=== PATIENT | female | born 1965 | race Caucasian/White ===

== ENCOUNTER 2016-10-29 20:02 | Emergency (ER) | payer BC ==
[2016-10-29] MEDS ORDERED: SODIUM CHLORIDE 0.9% 1,000 ML IV STA (20:43)
[2016-10-29] MEDS: ONDANSETRON 4 MG/2 ML VIAL IVP STA ×2 (21:05→21:22)
[2016-10-29] MEDS: HYDROmorphone 1 MG/ML 1 ML SYRINGE IVP STA ×2 (21:05→21:22)
--- NOTE | 2016-10-29 21:10 | ED ---
Abdominal Pain HPI - General Chief Complaint: Abdominal Pain Stated Complaint: abdominal pain Time Seen by Provider: 10/29/16 20:32 Source: patient, RN notes reviewed, old records reviewed Mode of arrival: ambulatory Limitations: no limitations - History of Present Illness Initial Comments: This is a pleasant 51-year-old female presenting to emergency Department with chief complaint of increased abdominal pain over the past 3 days. Patient reports it's over her umbilicus. Patient has a past medical history of ovarian cancer, she's had a total hysterectomy in 2004. Patient reports that afterwards she did have abdominal hernia which was repaired by Dr. De Santiago in 2013. Patient states that subsequently her ovarian cancer did return and she had a has a another surgery to reopen her hernia repair, and the cancer was located on her large bowel. They did remove a small portion of her large bowel at that time. Patient has currently cancer free. Patient states that over the past 3 days she has had a decreased appetite and feels very full after a few bites of food. She reports that she has not passed any gas over the past day. She did have a small bowel movement 2 days ago. Patient reports no vomiting but feels nauseated. She states that the pain is worse whenever she sits up and leans forward and is in the fold of her abdomen. Patient states that she is concerned that she may have a worsening hernia or possibly ileus. Patient states that she is supposed to follow-up with her oncologist on and would like her CA-125 checked. - Related Data Home Medications Medication Instructions Recorded Confirmed Essential Oil Allergy Capsule 1 cap PO DAILY 10/29/16 10/29/16 Multivitamins, Thera [Multivitamin 1 tab PO DAILY 10/29/16 10/29/16 (formulary)] Allergies Allergy/AdvReac Type Severity Reaction Status Date / Time No Known Allergies Allergy Verified 10/29/16 21:26 Review of Systems ROS Statement: Those systems with pertinent positive or pertinent negative responses have been documented in the HPI. ROS Other: All systems not noted in ROS Statement are negative. Past Medical History Additional Past Medical History / Comment(s): hx ovarian cancer History of Any Multi-Drug Resistant Organisms: None Reported Past Surgical History: Hernia Repair Past Psychological History: No Psychological Hx Reported Smoking Status: Never smoker Past Alcohol Use History: None Reported Past Drug Use History: None Reported General Exam - General Exam Comments Initial Comments: Is a pleasant 51-year-old female. No acute distress. Limitations: no limitations General appearance: alert, in no apparent distress Head exam: Present: atraumatic, normocephalic, normal inspection Eye exam: Present: normal appearance, PERRL, EOMI. Absent: scleral icterus, conjunctival injection, periorbital swelling ENT exam: Present: normal exam, mucous membranes moist Neck exam: Present: normal inspection. Absent: tenderness, meningismus, lymphadenopathy Respiratory exam: Present: normal lung sounds bilaterally. Absent: respiratory distress, wheezes, rales, rhonchi, stridor Cardiovascular Exam: Present: regular rate, normal rhythm, normal heart sounds. Absent: systolic murmur, diastolic murmur, rubs, gallop, clicks GI/Abdominal exam: Present: soft, tenderness (Earring umbilical tenderness. Difficult to palpate a hernia at this time.), normal bowel sounds, other (Full scars over the abdomen from previous surgeries.). Absent: distended, guarding, rebound, rigid Extremities exam: Present: normal inspection, full ROM, normal capillary refill. Absent: tenderness, pedal edema, joint swelling, calf tenderness Back exam: Present: normal inspection Neurological exam: Present: alert, oriented X3, CN II-XII intact Psychiatric exam: Present: normal affect, normal mood Skin exam: Present: warm, dry, intact, normal color. Absent: rash Course Vital Signs 10/29/16 10/29/16 10/29/16 20:26 22:29 23:15 Temperature 99.3 F 99.1 F 99 F Pulse Rate 103 H 80 80 Respiratory 18 16 20 Rate Blood Pressure 112/67 123/57 130/68 O2 Sat by Pulse 97 99 Oximetry Medical Decision Making - Medical Decision Making This is a pleasant 51-year-old female presenting to emergency Department with chief complaint of increased abdominal pain over the past 3 days. Patient reports it's over her umbilicus. Patient has a past medical history of ovarian cancer, she's had a total hysterectomy in 2004. Patient reports that afterwards she did have abdominal hernia which was repaired by Dr. De Santiago in 2013. Patient states that subsequently her ovarian cancer did return and she had a has a another surgery to reopen her hernia repair, and the cancer was located on her large bowel. They did remove a small portion of her large bowel at that time. Patient has currently cancer free. Patient states that over the past 3 days she has had a decreased appetite and feels very full after a few bites of food. She reports that she has not passed any gas over the past day. She did have a small bowel movement 2 days ago. Patient reports no vomiting but feels nauseated. She states that the pain is worse whenever she sits up and leans forward and is in the fold of her abdomen. Patient states that she is concerned that she may have a worsening hernia or possibly ileus. Patient labwork reviewed, no acute abnormalities. KUB shows mild air fluid levels. CT with contrast shows no acute abnormalities, no signs of obstrution or illeus. PAtient CT does show thickened bowel loops consistent with enteritis. Dsicussed clear liquid diet for 48 hours. Discussed follow up with PCP, return parameters discussed. - Lab Data Result diagrams: 10/29/16 21:00 10/29/16 21:00 Lab Results 10/29/16 10/29/16 10/29/16 Range/Units 21:00 21:00 21:00 WBC 7.0 (3.8-10.6) k/uL RBC 5.07 (3.80-5.40) m/uL Hgb 15.0 (11.4-16.0) gm/dL Hct 45.7 (34.0-46.0) % MCV 90.2 (80.0-100.0) fL MCH 29.5 (25.0-35.0) pg MCHC 32.7 (31.0-37.0) g/dL RDW 14.1 (11.5-15.5) % Plt Count 250 (150-450) k/uL Neutrophils % 71 % Lymphocytes % 20 % Monocytes % 6 % Eosinophils % 1 % Basophils % 0 % Neutrophils # 5.0 (1.3-7.7) k/uL Lymphocytes # 1.4 (1.0-4.8) k/uL Monocytes # 0.4 (0-1.0) k/uL Eosinophils # 0.1 (0-0.7) k/uL Basophils # 0.0 (0-0.2) k/uL Sodium 138 (137-145) mmol/L Potassium 4.5 (3.5-5.1) mmol/L Chloride 101 (98-107) mmol/L Carbon Dioxide 27 (22-30) mmol/L Anion Gap 10 mmol/L BUN 9 (7-17) mg/dL Creatinine 0.90 (0.52-1.04) mg/dL Est GFR (MDRD) Af Amer >60 (>60 ml/min/1.73 sqM) Est GFR (MDRD) Non-Af >60 (>60 ml/min/1.73 sqM) Glucose 116 H (74-99) mg/dL Calcium 9.2 (8.4-10.2) mg/dL Total Bilirubin 0.5 (0.2-1.3) mg/dL AST 33 (14-36) U/L ALT 46 (9-52) U/L Alkaline Phosphatase 118 (38-126) U/L Total Protein 6.9 (6.3-8.2) g/dL Albumin 4.0 (3.5-5.0) g/dL Amylase <30 L (30-110) U/L Lipase 43 (23-300) U/L CA 125 Antigen 16.4 (<35.1) U/mL Urine Color Yellow Urine Appearance Cloudy H (Clear) Urine pH 6.0 (5.0-8.0) Ur Specific [place] 1.021 (1.001-1.035) Urine Protein 1+ H (Negative) Urine Glucose (UA) Negative (Negative) Urine Ketones Negative (Negative) Urine Blood Small H (Negative) Urine Nitrite Negative (Negative) Urine Bilirubin Negative (Negative) Urine Urobilinogen <2.0 (<2.0) mg/dL Ur Leukocyte Esterase Small H (Negative) Urine RBC 10 H (0-5) /hpf Urine WBC 6 H (0-5) /hpf Ur Squamous Epith Cells 5 H (0-4) /hpf Urine Bacteria Rare H (None) /hpf Urine Mucus Rare H (None) /hpf - Radiology Data Radiology results: report reviewed CT shows small bowel wall thickening consistent with enteritis. Disposition Clinical Impression: Enteritis Disposition: HOME SELF-CARE Condition: Good Instructions: Enteritis (ED) Additional Instructions: Patient advised clear liquid diet for the next 2 days. Then slowly advance her diet to soft foods. Follow-up with her primary care provider. Return to the emergency department if any alarming signs or symptoms occur. Referrals: Flower gAuilar MD [Primary Care Provider] - 1-2 days Time of Disposition: 22:58
[2016-10-29 21:34] LABS: Basophils % (A) 0 %; CH 30.8; CHCM 34.2; Eosinophils # (A) 0.1 k/uL (0-0.7); Eosinophils % (A) 1 %; HCT 45.7 % (34.0-46.0); HDW 2.81; Luc # (Auto) 0.16; Luc % (Auto) 2; Lymphocytes # (A) 1.4 k/uL (1.0-4.8); Lymphocytes % (A) 20 %; MCH 29.5 pg (25.0-35.0); MCHC 32.7 g/dL (31.0-37.0); MCV 90.2 fL (80.0-100.0); Mean Platelet Volume 6.5; Monocytes # (A) 0.4 k/uL (0-1.0); Monocytes % (A) 6 %; Neutrophils % (A) 71 %; RBC 5.07 m/uL (3.80-5.40); RDW 14.1 % (11.5-15.5); WBC (Perox) 6.93
[2016-10-29 21:36] LABS: Appearance,Urine Cloudy (Clear); Bacteria,Urine Rare /hpf; Bilirubin,Urine Negative (Negative); Glucose,Urine (UA) Negative (Negative); Ketones,Urine Negative (Negative); Leukocyte Esterase,Urine Small (Negative); Mucus,Urine Rare /hpf; Nitrite,Urine Negative (Negative); Particle Count 8959; Protein,Urine 1+ (Negative); RBC,Urine 10 /hpf (0-5); Specific Gravity,Urine 1.021 (1.001-1.035); Squamous Epithelial Cell,Urine 5 /hpf (0-4); UA Billing (MACRO vs. MICRO) MICRO; Urobilinogen,Urine <2.0 mg/dL (<2.0); WBC,Urine 6 /hpf (0-5)
[2016-10-29] MEDS ORDERED: RX INFO: IV CONTRAST WAS GIVEN 1 EACH MISC MISCELLANE PRN (21:39)
--- NOTE | 2016-10-29 21:42 | XR ---
EXAMINATION TYPE: XR KUB DATE OF EXAM: 10/29/2016 COMPARISON: NONE INDICATION: Abdominal pain umbilical pain TECHNIQUE: Single view abdomen upright view FINDINGS: There is a nonspecific bowel gas pattern. Couple of air-fluid levels may be within the transverse col on. Differential air-fluid levels are not evident. No mass effect is evident. Postsurgical changes ar e evident. Psoas margins are normal. No organomegaly is present. No free air is present. IMPRESSION: 1. Nonspecific abdomen. Consider gastroenteritis.
[2016-10-29 21:45] LABS: ALT 46 U/L (9-52); AST 33 U/L (14-36); Alkaline Phosphatase 118 U/L (38-126); Amylase <30 U/L (30-110); Anion Gap 10 mmol/L; Blood Urea Nitrogen 9 mg/dL (7-17); Calcium 9.2 mg/dL (8.4-10.2); Carbon Dioxide 27 mmol/L (22-30); Chloride 101 mmol/L (98-107); Glucose 116 mg/dL (74-99); Non-African American GFR(MDRD) >60 (>60 ml/min/1.73 sqM); Potassium 4.5 mmol/L (3.5-5.1); Sodium 138 mmol/L (137-145); Total Bilirubin 0.5 mg/dL (0.2-1.3); Total Protein 6.9 g/dL (6.3-8.2)
[2016-10-29 22:14] LABS: Cancer Anitgen 125 16.4 U/mL (<35.1)
--- NOTE | 2016-10-29 22:28 | CT ---
EXAM: CT Abdomen and Pelvis With Intravenous Contrast CLINICAL HISTORY: Reason: Pain TECHNIQUE: Axial computed tomography images of the abdomen and pelvis with intravenous contrast. CTDI is 45.2 mGy and DLP is 1797 mGy-cm. This CT exam was performed using one or more of the following dose reduction techniques: automated exposure control, adjustment of the mA and/or kV according to patient size, and/or use of iterative reconstruction technique. COMPARISON: No relevant prior studies available. FINDINGS: Lower thorax: No acute findings. ABDOMEN: Liver: Hepatic steatosis. 8mm left hepatic lobe cyst. Gallbladder and bile ducts: Gallbladder is absent. Pancreas: Unremarkable. No mass. No ductal dilation. Spleen: Unremarkable. No splenomegaly. Adrenals: Unremarkable. No mass. Kidneys and ureters: Unremarkable. No solid mass. No hydronephrosis. Long segment distal small bowel wall thickening suggesting enteritis. No pneumatosis or portal venous gas. Colonic diverticula without diverticulitis. Intact distal colonic anastomosis. Thickening. Appendix: No findings to suggest acute appendicitis. PELVIS: Bladder: Unremarkable. No mass. Reproductive: Hysterectomy. Retroperitoneal lymph node dissection. ABDOMEN and PELVIS: Intraperitoneal space: Ventral hernia repair mesh. Small hiatal hernia. Bones/joints: No acute fracture. No dislocation. Vasculature: Unremarkable. No abdominal aortic aneurysm. IMPRESSION: Small bowel wall thickening suggesting enteritis. No perforation. Hepatic steatosis.
[2016-10-29 22:33] VITALS: PULSE 80
[2016-10-29 23:17] VITALS: BP 130/68; RESP 20; TEMP 99
== END 2016-10-29 23:17 | disposition home or self-care (01) ==
LOC: EC 20:02
DX: K52.9 Noninfective gastroenteritis and colitis, unspecified (principal); Z85.43 Personal history of malignant neoplasm of ovary
CPT/HCPCS: 36415; 80053; 86304; 82150; 83690; 85025; 81001; 87086; 74000; 74177; 99284; 96360; Q9967; 96374

== ENCOUNTER 2020-05-21 10:43 | Inpatient (IN) | payer BC ==
[2020-05-21] MEDS ORDERED: ONDANSETRON 4 MG/2 ML VIAL IVP STA (11:19)
[2020-05-21] MEDS ORDERED: MORPHINE SULFATE 2 MG/ML SYRINGE IVP STA (11:19)
[2020-05-21] MEDS ORDERED: SODIUM CHLORIDE 0.9% 500 ML 500 ML IV STA ×2 (11:19→12:26)
--- NOTE | 2020-05-21 11:24 | ED ---
General Adult HPI - General Stated complaint: Adb Pain Time Seen by Provider: 05/21/20 11:10 Source: RN notes reviewed - History of Present Illness Initial comments: 54-year-old female with a past medical history of ovarian cancer presents to the emergency room for abdominal pain. This has been ongoing since May 11 or about a week and a half. States this started when she was getting up from a chair felt a burning and sharp pain in her left lower quadrant. States she has had a hernia repair in this area in the past and is concerned she may have another hernia. Patient states that the pain has gradually worsened. She did see her conference planner/onc surgeon one week ago who did a physical exam and did not feel any palpable nodules. Patient states that this pain is worsened. She had chemotherapy on Tuesday. Today she cannot tolerate the pain. She reports that she does not tolerate pain medication while as Dilaudid caused her severe drowsiness. She has never had morphine that she knows of. She denies nausea vomiting diarrhea. Denies fevers.Patient has no other complaints at this time including shortness of breath, chest pain, nausea or vomiting, headache, or visual changes. - Related Data Home Medications Medication Instructions Recorded Confirmed Cetirizine HCl/Pseudoephedrine 1 tab PO Q12H PRN 05/21/20 05/21/20 [Zyrtec-D Tablet] Loratadine [Claritin] 10 mg PO HS 05/21/20 05/21/20 Ondansetron [Zofran] 4 mg PO Q6H PRN 05/21/20 05/21/20 Allergies Allergy/AdvReac Type Severity Reaction Status Date / Time No Known Allergies Allergy Verified 05/21/20 11:33 Review of Systems ROS Statement: Those systems with pertinent positive or pertinent negative responses have been documented in the HPI. ROS Other: All systems not noted in ROS Statement are negative. Past Medical History Additional Past Medical History / Comment(s): hx ovarian cancer History of Any Multi-Drug Resistant Organisms: None Reported Past Surgical History: Hernia Repair Past Psychological History: No Psychological Hx Reported Past Alcohol Use History: None Reported Past Drug Use History: None Reported General Exam General appearance: alert, in no apparent distress Head exam: Present: atraumatic, normocephalic, normal inspection Eye exam: Present: normal appearance, PERRL, EOMI. Absent: scleral icterus, con junctival injection, periorbital swelling ENT exam: Present: normal exam, mucous membranes moist Neck exam: Present: normal inspection, full ROM. Absent: tenderness, meningismus, lymphadenopathy Respiratory exam: Present: normal lung sounds bilaterally. Absent: respiratory distress Cardiovascular Exam: Present: regular rate, normal rhythm GI/Abdominal exam: Present: soft, tenderness (Tenderness noted to the left lower quadrant, no palpable hernias). Absent: distended Neurological exam: Present: alert Course Vital Signs 05/21/20 05/21/20 11:22 13:32 Temperature 98.5 F Pulse Rate 93 84 Respiratory 18 18 Rate Blood Pressure 129/62 105/49 O2 Sat by Pulse 99 99 Oximetry Procedures - Sepsis Sepsis Focused Exam #1 Sepsis Focused Exam Date: 05/21/20 Sepsis Focused Exam Time: 14:00 Sepsis Focused Exam Complete: Yes Vital Signs & RN Notes Reviewed: Yes Capillary Refill: > 2 Seconds: Fingers, Toes Peripheral Pulses: Normal: Radial (R) Skin Color: Normal for Patient Respiratory Exam: normal lung sounds Cardiovascular Exam: regular rate, normal rhythm Medical Decision Making - Medical Decision Making Vitals are stable. Patient however does have significant abdominal pain. Leukocytosis of 17 is noted however patient did have Neulasta yesterday. However lactic acidosis of 5.1 is noted. Patient does have urinalysis with 106 white blood cells. Technically patient does not meet sepsis criteria based on her vitals however will be treated as such with IV antibiotics and fluids. CT abdomen and pelvis shows no suspicious changes to account for pain. Patient's pain clearly related to cystitis. She will be admitted for IV antibiotics and fluid therapy. Dr. Palomo except this patient. I will consult her oncologist. Patient has seen Dr. De Santiago in the past and if abdominal pain is persistent after infection improves medical doctor can consult as needed. - Lab Data Result diagrams: 05/21/20 11:32 05/21/20 11:32 Lab Results 05/21/20 05/21/20 05/21/20 Range/Units 11:32 11:32 11:32 WBC 16.9 H (3.8-10.6) k/uL RBC 2.84 L (3.80-5.40) m/uL Hgb 9.5 L (11.4-16.0) gm/dL Hct 28.6 L (34.0-46.0) % MCV 100.6 H (80.0-100.0) fL MCH 33.5 (25.0-35.0) pg MCHC 33.3 (31.0-37.0) g/dL RDW 18.5 H (11.5-15.5) % Plt Count 172 (150-450) k/uL MPV 7.5 Neutrophils % 94 % Lymphocytes % 3 % Monocytes % 1 % Eosinophils % 1 % Basophils % 0 % Neutrophils # 15.8 H (1.3-7.7) k/uL Lymphocytes # 0.5 L (1.0-4.8) k/uL Monocytes # 0.2 (0-1.0) k/uL Eosinophils # 0.2 (0-0.7) k/uL Basophils # 0.0 (0-0.2) k/uL Hypochromasia Slight Poikilocytosis Slight Anisocytosis Slight Macrocytosis Moderate Sodium 138 (137-145) mmol/L Potassium 4.4 (3.5-5.1) mmol/L Chloride 105 (98-107) mmol/L Carbon Dioxide 25 (22-30) mmol/L Anion Gap 8 mmol/L BUN 14 (7-17) mg/dL Creatinine 0.75 (0.52-1.04) mg/dL Est GFR (CKD-EPI)AfAm >90 (>60 ml/min/1.73 sqM) Est GFR (CKD-EPI)NonAf >90 (>60 ml/min/1.73 sqM) Glucose 108 H (74-99) mg/dL Plasma Lactic Acid [place] (0.7-2.0) mmol/L Calcium 9.3 (8.4-10.2) mg/dL Total Bilirubin 1.2 (0.2-1.3) mg/dL AST 208 H (14-36) U/L ALT 159 H (4-34) U/L Alkaline Phosphatase 112 (38-126) U/L Total Protein 7.3 (6.3-8.2) g/dL Albumin 4.1 (3.5-5.0) g/dL Amylase 58 (30-110) U/L Lipase 62 (23-300) U/L Urine Color Yellow Urine Appearance Clear (Clear) Urine pH 5.5 (5.0-8.0) Ur Specific [place] 1.020 (1.001-1.035) Urine Protein Negative (Negative) Urine Glucose (UA) Negative (Negative) Urine Ketones Negative (Negative) Urine Blood Negative (Negative) Urine Nitrite Negative (Negative) Urine Bilirubin Negative (Negative) Urine Urobilinogen <2.0 (<2.0) mg/dL Ur Leukocyte Esterase Large H (Negative) Urine RBC 2 (0-5) /hpf Urine WBC 106 H (0-5) /hpf Ur Squamous Epith Cells 2 (0-4) /hpf Urine Bacteria Rare H (None) /hpf Urine Mucus Rare H (None) /hpf 05/21/20 Range/Units 11:32 WBC (3.8-10.6) k/uL RBC (3.80-5.40) m/uL Hgb (11.4-16.0) gm/dL Hct (34.0-46.0) % MCV (80.0-100.0) fL MCH (25.0-35.0) pg MCHC (31.0-37.0) g/dL RDW (11.5-15.5) % Plt Count (150-450) k/uL MPV Neutrophils % % Lymphocytes % % Monocytes % % Eosinophils % % Basophils % % Neutrophils # (1.3-7.7) k/uL Lymphocytes # (1.0-4.8) k/uL Monocytes # (0-1.0) k/uL Eosinophils # (0-0.7) k/uL Basophils # (0-0.2) k/uL Hypochromasia Poikilocytosis Anisocytosis Macrocytosis Sodium (137-145) mmol/L Potassium (3.5-5.1) mmol/L Chloride (98-107) mmol/L Carbon Dioxide (22-30) mmol/L Anion Gap mmol/L BUN (7-17) mg/dL Creatinine (0.52-1.04) mg/dL Est GFR (CKD-EPI)AfAm (>60 ml/min/1.73 sqM) Est GFR (CKD-EPI)NonAf (>60 ml/min/1.73 sqM) Glucose (74-99) mg/dL Plasma Lactic Acid [place] 5.1 H* (0.7-2.0) mmol/L Calcium (8.4-10.2) mg/dL Total Bilirubin (0.2-1.3) mg/dL AST (14-36) U/L ALT (4-34) U/L Alkaline Phosphatase (38-126) U/L Total Protein (6.3-8.2) g/dL Albumin (3.5-5.0) g/dL Amylase (30-110) U/L Lipase (23-300) U/L Urine Color Urine Appearance (Clear) Urine pH (5.0-8.0) Ur Specific [place] (1.001-1.035) Urine Protein (Negative) Urine Glucose (UA) (Negative) Urine Ketones (Negative) Urine Blood (Negative) Urine Nitrite (Negative) Urine Bilirubin (Negative) Urine Urobilinogen (<2.0) mg/dL Ur Leukocyte Esterase (Negative) Urine RBC (0-5) /hpf Urine WBC (0-5) /hpf Ur Squamous Epith Cells (0-4) /hpf Urine Bacteria (None) /hpf Urine Mucus (None) /hpf Disposition Clinical Impression: Abdominal pain, Lactic acidosis, Urinary tract infection Disposition: ADMITTED IP TO THIS HOSP Is patient prescribed a controlled substance at d/c from ED?: No Referrals: Flower Aguilar MD [Primary Care Provider] - 1-2 days Time of Disposition: 14:20
[2020-05-21 12:09] LABS: Anisocytosis Slight; Basophils % (A) 0 %; Eosinophils # (A) 0.2 k/uL (0-0.7); Eosinophils % (A) 1 %; HCT 28.6 % (34.0-46.0); HGB 9.5 gm/dL (11.4-16.0); Hypochromasia Slight; Lymphocytes # (A) 0.5 k/uL (1.0-4.8); Lymphocytes % (A) 3 %; MCH 33.5 pg (25.0-35.0); MCHC 33.3 g/dL (31.0-37.0); MCV 100.6 fL (80.0-100.0); Macrocytosis Moderate; Mean Platelet Volume 7.5; Monocytes # (A) 0.2 k/uL (0-1.0); Monocytes % (A) 1 %; Neutrophils # (A) 15.8 k/uL (1.3-7.7); Neutrophils % (A) 94 %; Platelet Count 172 k/uL (150-450); Poikilocytosis Slight; RBC 2.84 m/uL (3.80-5.40); RDW 18.5 % (11.5-15.5); WBC 16.9 k/uL (3.8-10.6)
[2020-05-21 12:16] LABS: ALT 159 U/L (4-34); AST 208 U/L (14-36); African American GFR (CKD) >90 (>60 ml/min/1.73 sqM); Albumin 4.1 g/dL (3.5-5.0); Alkaline Phosphatase 112 U/L (38-126); Amylase 58 U/L (30-110); Anion Gap 8 mmol/L; Blood Urea Nitrogen 14 mg/dL (7-17); Calcium 9.3 mg/dL (8.4-10.2); Carbon Dioxide 25 mmol/L (22-30); Chloride 105 mmol/L (98-107); Glucose 108 mg/dL (74-99); Lipase 62 U/L (23-300); Non-African American GFR(CKD) >90 (>60 ml/min/1.73 sqM); Potassium 4.4 mmol/L (3.5-5.1); Sodium 138 mmol/L (137-145); Total Bilirubin 1.2 mg/dL (0.2-1.3); Total Protein 7.3 g/dL (6.3-8.2)
[2020-05-21 12:21] LABS: Appearance,Urine Clear (Clear); Bacteria,Urine Rare /hpf; Bilirubin,Urine Negative (Negative); Blood,Urine Negative (Negative); Color,Urine Yellow; Glucose,Urine (UA) Negative (Negative); Ketones,Urine Negative (Negative); Leukocyte Esterase,Urine Large (Negative); Mucus,Urine Rare /hpf; Nitrite,Urine Negative (Negative); PH, Urine 5.5 (5.0-8.0); Protein,Urine Negative (Negative); RBC,Urine 2 /hpf (0-5); Squamous Epithelial Cell,Urine 2 /hpf (0-4); Urobilinogen,Urine <2.0 mg/dL (<2.0); WBC,Urine 106 /hpf (0-5)
[2020-05-21] MEDS ORDERED: SODIUM CHLORIDE 0.9% 1,000 ML IV STA (12:26)
[2020-05-21] MEDS ORDERED: cefTRIAXone IN SWFI 1,000 MG/10 ML SYRINGE IVP STA (12:44)
--- NOTE | 2020-05-21 13:02 | CT ---
EXAMINATION TYPE: CT abdomen pelvis w con DATE OF EXAM: 05/21/2020 COMPARISON: 10/29/2016 INDICATION: Left lower quadrant pain DLP: 1809.4 mGycm, Automated exposure control for dose reduction was used. CONTRAST: 100 mL of Isovue 300. Study performed without Oral Contrast TECHNIQUE: Axial images were obtained from above the diaphragm to the pubic rami in the axial plane a t 5 mm thick sections. Reconstructed images are reviewed on the computer in the coronal plane. FINDINGS: Limited CT sections are obtained the lung bases. The lung bases are clear. CT ABDOMEN: Liver: Normal Spleen: Normal Pancreas: Normal Adrenal glands: The adrenal glands are normal. Gallbladder: Not identified Kidneys: No masses are evident. No hydronephrosis is present. No cysts are present. Aorta: Vascular calcification is within the aorta. Inferior vena cava: Normal. CT PELVIS: There is an anastomosis of the distal sigmoid colon. No stenosis is identified. The studies without o ral contrast limiting bowel evaluation. Loops of bowel as visualized without contrast appear normal. No recurrent herniation is identified. No recurrent colitis is evident. Appendix: Normal as visualized. Urinary bladder: Normal. Genitourinary structures: Uterus and ovaries are not identified. Osseous structures: No suspicious lytic or sclerotic lesions. IMPRESSIONS: 1. No suspicious changes to account for left lower quadrant pain.
[2020-05-21] MEDS ORDERED: NALOXONE 0.4 MG/ML 1 ML VIAL IV PRN (14:37)
[2020-05-21] MEDS ORDERED: ONDANSETRON 4 MG/2 ML VIAL IVP PRN (14:37)
[2020-05-21] MEDS ORDERED: CETIRIZINE HCL PO PRN (14:38)
[2020-05-21] MEDS ORDERED: PSEUDOEPHEDRINE PO PRN (14:38)
[2020-05-21] MEDS ORDERED: PSEUDOEPHEDRINE 12HR 120 MG TABLET.ER PO PRN (14:58)
[2020-05-21] MEDS: SODIUM CHLORIDE 0.9% 1,000 ML IV SCH ×2 (15:11→23:49)
--- NOTE | 2020-05-21 17:54 | P.HPIM ---
History of Present Illness H&P Date: 05/21/20 Saloni Dent is a 54-year-old female patient of Dr. Aguilar who presented to [facility] emergency room with a chief complaint of left flank pain and generalized weakness patient stated that her pain started about 10 days ago and has been worsening, she also has a known history of ovarian cancer with metastatic disease she has been maintained on chemotherapy she received chemotherapy on Tuesday, patient felt very weak and she decided to come to emergency room. She was evaluated in the emergency room vital examination on presentation revealed a temperature of 98.5 pulse 93 respiration 18 blood pressure 129/62 pulse ox 99% on room air her white blood count was 16.9 hemoglobin 9.5 platelet count 172 lactic acid was elevated at 5.1 patient had evidence of urinary tract infection liver enzymes AST and ALT were elevated at 208 and 159 patient was given fluid boluses in the emergency room per sepsis protocol she was started on IV Rocephin and was admitted to medical floor onc ology consultation was requested. On review of systems patient is feeling better she is alert and oriented 3 she is still complaining of left flank pain and generalized weakness otherwise she denies any complaints there is no fever or chills no headache or dizziness no chest pain no shortness of breath no cough no nausea or vomiting no abdominal pain no diarrhea and no urinary symptoms Past Medical History Additional Past Medical History / Comment(s): hx ovarian cancer History of Any Multi-Drug Resistant Organisms: None Reported Past Surgical History: Hernia Repair Past Anesthesia/Blood Transfusion Reactions: No Reported Reaction Past Psychological History: No Psychological Hx Reported Past Alcohol Use History: None Reported Past Drug Use History: None Reported Medications and Allergies Home Medications Medication Instructions Recorded Confirmed Type Cetirizine HCl/Pseudoephedrine 1 tab PO Q12H PRN 05/21/20 05/21/20 History [Zyrtec-D Tablet] Loratadine [Claritin] 10 mg PO HS 05/21/20 05/21/20 History Ondansetron [Zofran] 4 mg PO Q6H PRN 05/21/20 05/21/20 History Allergies Allergy/AdvReac Type Severity Reaction Status Date / Time No Known Allergies Allergy Verified 05/21/20 11:33 Physical Exam Vitals: Vital Signs Temp Pulse Pulse Resp BP BP Pulse Ox 05/21/20 16:04 18 05/21/20 15:30 98.0 F 80 16 102/61 99 05/21/20 15:14 98.6 F 72 18 123/62 98 05/21/20 13:32 84 18 105/49 99 05/21/20 11:22 98.5 F 93 18 129/62 99 Intake and Output 05/21/20 05/21/20 05/21/20 06:59 14:59 22:59 Intake Total 1999 Balance 1999 Intake: Amount of Fluid Infused ( 2000 ml) Other: Voiding Method Toilet Weight 106.594 kg 106.594 kg On physical exam patient is alert and oriented 3 in no apparent distress HEENT head normocephalic and atraumatic Neck is supple no JVD no goiter no lymphadenopathy no carotid bruit Chest exam reveals a few scattered crackles bilaterally no wheezing Cardiac exam reveals regular heart sounds S1 and S2 no gallops no murmurs abdomen is soft nontender no organomegaly with normal bowel sounds, there is mild tenderness in the left pelvic area Extremity exam reveals no edema no cyanosis or clubbing Neurological examination reveals no gross focal deficits Results CBC & Chem 7: 05/21/20 11:32 05/21/20 11:32 Labs: Abnormal Lab Results - Last 24 Hours (Table) 05/21/20 05/21/20 05/21/20 Range/Units 11:32 11:32 11:32 WBC 16.9 H (3.8-10.6) k/uL RBC 2.84 L (3.80-5.40) m/uL Hgb 9.5 L (11.4-16.0) gm/dL Hct 28.6 L (34.0-46.0) % MCV 100.6 H (80.0-100.0) fL RDW 18.5 H (11.5-15.5) % Neutrophils # 15.8 H (1.3-7.7) k/uL Lymphocytes # 0.5 L (1.0-4.8) k/uL Glucose 108 H (74-99) mg/dL Plasma Lactic Acid Narinder (0.7-2.0) mmol/L AST 208 H (14-36) U/L ALT 159 H (4-34) U/L Ur Leukocyte Esterase Large H (Negative) Urine WBC 106 H (0-5) /hpf Urine Bacteria Rare H (None) /hpf Urine Mucus Rare H (None) /hpf 05/21/20 Range/Units 11:32 WBC (3.8-10.6) k/uL RBC (3.80-5.40) m/uL Hgb (11.4-16.0) gm/dL Hct (34.0-46.0) % MCV (80.0-100.0) fL RDW (11.5-15.5) % Neutrophils # (1.3-7.7) k/uL Lymphocytes # (1.0-4.8) k/uL Glucose (74-99) mg/dL Plasma Lactic Acid Narinder 5.1 H* (0.7-2.0) mmol/L AST (14-36) U/L ALT (4-34) U/L Ur Leukocyte Esterase (Negative) Urine WBC (0-5) /hpf Urine Bacteria (None) /hpf Urine Mucus (None) /hpf Thrombosis Risk Factor Assmnt - Choose All That Apply Any of the Below Risk Factors Present?: Yes Each Factor Represents 1 point: Age 41-60 years, Obesity (BMI >25) Other Risk Factors: No Other congenital or acquired thrombophilia - If yes, enter type in comment: No Thrombosis Risk Factor Assessment Total Risk Factor Score: 2 Thrombosis Risk Factor Assessment Level: Low Risk Assessment and Plan Plan: 1. Sepsis as evidenced by leukocytosis, elevated lactic acid, and evidence of urinary tract infection. Patient was started on IV Rocephin in the emergency room, she was given IV fluid boluses per sepsis protocol 2. Underlying history of malignant neoplasm of the right ovary patient is followed by Dr. Smith 3. Evidence of anemia hemoglobin 9.5 4. Elevated liver enzymes At this time patient is admitted to medical floor continue with IV Rocephin awaiting blood culture and urine culture results Consult Dr. Smith in regard to history of ovarian cancer with history of chemotherapy Will follow during this admission for medical management
[2020-05-21] MEDS: MORPHINE SULFATE 2 MG/ML SYRINGE IV PRN (18:28)
--- NOTE | 2020-05-21 19:56 | US ---
EXAMINATION TYPE: US kidneys/renal and bladder DATE OF EXAM: 05/21/2020 COMPARISON: US, CT Renal ultrasound 05/04/2017 CLINICAL HISTORY: left flank pain. Left flank pain. Hx left renal vein thrombosis 2008. EXAM MEASUREMENTS: Right Kidney: 10.7 x 5.5 x 3.6 cm Left Kidney: 11.5 x 5.9 x 4.5 cm Right Kidney: Hypoechoic area seen, possible column of Ruddy measuring 3.2 x 3.0 x 1.9 cm. Hyperech oic focus seen lower pole with twinkle artifact measuring 0.8 x 0.7 x 0.5 cm. Left Kidney: Hypoechoic area seen, possible column of Ruddy measuring 2.8 x 2.2 x 1.7 cm. Bladder: Wall measures 0.33 cm. Internal echoes seen within the bladder. Bilateral Jets seen: No IMPRESSION: No definite evidence of renal mass or obstruction. No hydronephrosis. There is some echogenic urine i n the bladder that could relate to an inflammatory process. No bladder mass seen.
[2020-05-21] MEDS: LORATADINE 10 MG TAB PO SCH (20:12)
[2020-05-21] MEDS: FLUCONAZOLE 100 MG TAB PO SCH (20:12)
[2020-05-22] MEDS: MORPHINE SULFATE 2 MG/ML SYRINGE IV PRN ×4 (00:29→22:34)
[2020-05-22] MEDS: SODIUM CHLORIDE 0.9% 1,000 ML IV SCH ×3 (06:23→22:35)
[2020-05-22 11:24] LABS: ALT 138 U/L (4-34); AST 116 U/L (14-36); African American GFR (CKD) >90 (>60 ml/min/1.73 sqM); Albumin 3.1 g/dL (3.5-5.0); Alkaline Phosphatase 85 U/L (38-126); Anion Gap 3 mmol/L; Blood Urea Nitrogen 8 mg/dL (7-17); Calcium 8.5 mg/dL (8.4-10.2); Carbon Dioxide 27 mmol/L (22-30); Chloride 106 mmol/L (98-107); Glucose 94 mg/dL (74-99); Non-African American GFR(CKD) 88 (>60 ml/min/1.73 sqM); Potassium 4.5 mmol/L (3.5-5.1); Sodium 136 mmol/L (137-145); Total Bilirubin 0.8 mg/dL (0.2-1.3); Total Protein 5.7 g/dL (6.3-8.2)
[2020-05-22 11:57] LABS: Anisocytosis Slight; Basophils % (A) 0 %; Eosinophils # (A) 0.2 k/uL (0-0.7); Eosinophils % (A) 2 %; HCT 22.2 % (34.0-46.0); Hypochromasia Moderate; Lymphocytes # (A) 0.6 k/uL (1.0-4.8); Lymphocytes % (A) 7 %; MCH 31.8 pg (25.0-35.0); MCHC 30.8 g/dL (31.0-37.0); MCV 103.5 fL (80.0-100.0); Macrocytosis Moderate; Mean Platelet Volume 8.9; Monocytes # (A) 0.2 k/uL (0-1.0); Monocytes % (A) 2 %; Neutrophils # (A) 7.6 k/uL (1.3-7.7); Neutrophils % (A) 87 %; Platelet Count 127 k/uL (150-450); RBC 2.15 m/uL (3.80-5.40); WBC 8.7 k/uL (3.8-10.6)
[2020-05-22 12:08] LABS: HGB 6.8 gm/dL (11.4-16.0)
--- NOTE | 2020-05-22 14:53 | P.CONS ---
History of Present Illness - Reason for Consult Consult date: 05/22/20 On chemotherapy ovarian cancer Requesting physician: Vaughn Teixeira - Chief Complaint Suprapubic pelvic pain - History of Present Illness Mrs. Jailene hidalgo female patient of Dr. Prabhakar for treatment and monitoring of her known ovarian cancer. She presents today for first consultation for recurrent ovarian cancer as she lives closer to this area and would like to re ceive her treatment with Dr. Smith through our [place] [facility]. Original Diagnosis June 2008 - DONNA, Mikel leroy-oopherectomy, LN dissection, tumor debulking with optimal cytoreduction BRCA neg November 2008 - Completed 6 cycles of IP carboplatinin and paclitaxel July 2013 - Pelvic recurrence noted with elevated Ca125 (was still in normal range at that time, although increased from prior results) - A new pelvic Mass was found September 2013 - Second cytoreduction with exp lap, lysis of adhesions, sigmoid resection with primary re-anastamoisis February 2014 - COmpleted 6 cycles of Carboplatin and Doxil August 2017 - Again rising Ca 125 (although still within normal range) and PET scan revealing multiple hypermetabolic lesions in the abdomen and a mediastinal ln October 2017 - COlonoscopy guided bx of 4cm rectal mass consistent with recurrent disease - She was again started on carboplatin and Doxil March 2018 - COmpleted 6 cycles of carbo/doxil - Declined PARP inhibitor at this time September 2018 - Agreed to PARP inhibitor maintnance and started on Rucaparib October 2017 - Foundation one testing no reportable alterations, MSI stable, TMB of 8 mutations/megabase. TP53 mutation and MYC amplification. November 2019 - Increasing LFTs and after several dose reductions PARP was discontinued January 2020 - Ca125 increased again (22 - not out of normal although increased from prior) and CT demonstrated evidence of disease recurrence with new pulmonary nodule and increasing lymphadenopathy in the mediastinum and abdomen. On 02/25/2020,she started carboplatin/gemzar. She is tolerating treatment okay,some fatigue,her CA125 is declining. She has a follow up with Dr Prashant ireland and scheduled for CT scan Status post cycle 4 day 8 carbo gemsar with neulasta on 05/19/19. She presents with complaints of subrpubic pelvic pain, no associated urinary complaints. CT and Ultrasound Wnl. Hemoglobin 6.8 - Transfusion PRBC today. Review of Systems All systems: negative Constitutional: Reports as per HPI Past Medical History Additional Past Medical History / Comment(s): hx ovarian cancer History of Any Multi-Drug Resistant Organisms: None Reported Past Surgical History: Hernia Repair Past Psychological History: No Psychological Hx Reported Past Alcohol Use History: None Reported Past Drug Use History: None Reported Medications and Allergies Home Medications Medication Instructions Recorded Confirmed Type Cetirizine HCl/Pseudoephedrine 1 tab PO Q12H PRN 05/21/20 05/21/20 History [Zyrtec-D Tablet] Loratadine [Claritin] 10 mg PO HS 05/21/20 05/21/20 History Ondansetron [Zofran] 4 mg PO Q6H PRN 05/21/20 05/21/20 History Allergies Allergy/AdvReac Type Severity Reaction Status Date / Time No Known Allergies Allergy Verified 05/21/20 11:33 Physical Exam Vitals: Vital Signs Temp Pulse Resp BP Pulse Ox 05/21/20 15:14 98.6 F 72 18 123/62 98 05/21/20 13:32 84 18 105/49 99 05/21/20 11:22 98.5 F 93 18 129/62 99 Intake and Output 05/21/20 05/21/20 05/21/20 06:59 14:59 22:59 Intake Total 1999 Balance 1999 Intake: Amount of Fluid Infused ( 2000 ml) Other: Weight 106.594 kg - Constitutional General appearance: cooperative, no acute distress - EENT Eyes: EOMI, PERRLA ENT: NA/AT, normal oropharynx - Neck Neck: normal ROM - Respiratory Respiratory: bilateral: CTA - Cardiovascular Rhythm: regular - Gastrointestinal General gastrointestinal: soft, tenderness Localized gastrointestinal: surgical scar: midline (Tender to palpate directly above pelvic bone) - Integumentary Integumentary: pale - Neurologic Neurologic: CNII-XII intact - Musculoskeletal Musculoskeletal: gait normal, generalized weakness, strength equal bilaterally - Psychiatric Psychiatric: A&O x's 3, appropriate affect, intact judgment & insight Results CBC & Chem 7: 05/22/20 10:53 05/22/20 10:53 Labs: Abnormal Lab Results - Last 24 Hours (Table) 05/21/20 05/21/20 05/21/20 Range/Units 11:32 11:32 11:32 WBC 16.9 H (3.8-10.6) k/uL RBC 2.84 L (3.80-5.40) m/uL Hgb 9.5 L (11.4-16.0) gm/dL Hct 28.6 L (34.0-46.0) % MCV 100.6 H (80.0-100.0) fL RDW 18.5 H (11.5-15.5) % Neutrophils # 15.8 H (1.3-7.7) k/uL Lymphocytes # 0.5 L (1.0-4.8) k/uL Glucose 108 H (74-99) mg/dL Plasma Lactic Acid Narinder (0.7-2.0) mmol/L AST 208 H (14-36) U/L ALT 159 H (4-34) U/L Ur Leukocyte Esterase Large H (Negative) Urine WBC 106 H (0-5) /hpf Urine Bacteria Rare H (None) /hpf Urine Mucus Rare H (None) /hpf 05/21/20 Range/Units 11:32 WBC (3.8-10.6) k/uL RBC (3.80-5.40) m/uL Hgb (11.4-16.0) gm/dL Hct (34.0-46.0) % MCV (80.0-100.0) fL RDW (11.5-15.5) % Neutrophils # (1.3-7.7) k/uL Lymphocytes # (1.0-4.8) k/uL Glucose (74-99) mg/dL Plasma Lactic Acid Narinder 5.1 H* (0.7-2.0) mmol/L AST (14-36) U/L ALT (4-34) U/L Ur Leukocyte Esterase (Negative) Urine WBC (0-5) /hpf Urine Bacteria (None) /hpf Urine Mucus (None) /hpf CT scan - abdomen: report reviewed CT scan - pelvis: report reviewed US - abdomen: report reviewed Assessment and Plan (1) Ovarian cancer Current Visit: Yes Status: Acute Code(s): C56.9 - MALIGNANT NEOPLASM OF UNSPECIFIED OVARY SNOMED Code(s): 674500917 (2) Anemia Current Visit: Yes Status: Acute Code(s): D64.9 - ANEMIA, UNSPECIFIED SNOMED Code(s): 858396921 (3) Abdominal pain Current Visit: Yes Status: Acute Code(s): R10.9 - UNSPECIFIED ABDOMINAL PAIN SNOMED Code(s): 32223773 (4) Urinary tract infection Current Visit: Yes Status: Acute Code(s): N39.0 - URINARY TRACT INFECTION, SITE NOT SPECIFIED SNOMED Code(s): 72660121 Plan: No confirmed etiology for complaints Treatment for UTI at the moment and assess for improvement Transfuse hemoglobin less than 7, one unit today Anemia secondary to chemotherapy Physician Attest: I have completed the full history and physical and agree with above dictation, dictated as a scribe.
--- NOTE | 2020-05-22 18:27 | P.PN ---
Subjective Progress Note Date: 05/22/20 Saloni Dent is a 54-year-old female patient of Dr. Aguilar who presented to [facility] emergency room with a chief complaint of left flank pain and generalized weakness patient stated that her pain started about 10 days ago and has been worsening, she also has a known history of ovarian cancer with metastatic disease she has been maintained on chemotherapy she received chemotherapy on Tuesday, patient felt very weak and she decided to come to emergency room. She was evaluated in the emergency room vital examination on presentation revealed a temperature of 98.5 pulse 93 respiration 18 blood pressure 129/62 pulse ox 99% on room air her white blood count was 16.9 hemoglobin 9.5 platelet count 172 lactic acid was elevated at 5.1 patient had evidence of urinary tract infection liver enzymes AST and ALT were elevated at 208 and 159 patient was given fluid boluses in the emergency room per sepsis protocol she was started on IV Rocephin and was admitted to medical floor oncology consultation was requested. On 05/22/2020 patient was seen and examined on the medical floor she is alert and oriented 3 in no apparent distress there is no fever or chills no headache or dizziness no chest pain no shortness of breath no cough no nausea or vomiting no abdominal pain no diarrhea no blood in the stools no burning with urination no frequency or urgency and no hematuria. Blood count has improved however hemoglobin is down to 6.8 hematology oncology consult Objective - Vital Signs Vital signs: Vital Signs Temp 98.1 F 05/22/20 09:00 Pulse 80 05/22/20 09:00 Resp 16 05/22/20 09:00 BP 99/42 05/22/20 09:00 Pulse Ox 98 05/22/20 09:00 Intake & Output 05/21/20 05/22/20 05/22/20 18:59 06:59 18:59 Intake Total 2500 Balance 2500 Weight 106.594 kg Intake: Amount of Fluid Infused ( 2000 ml) Oral 500 Other: Voiding Method Toilet Toilet # Voids 2 2 - Exam On physical exam patient is alert and oriented 3 in no apparent distress HEENT head normocephalic and atraumatic Neck is supple no JVD no goiter no lymphadenopathy no carotid bruit Chest exam reveals a few scattered crackles bilaterally no wheezing Cardiac exam reveals regular heart sounds S1 and S2 no gallops no murmurs abdomen is soft nontender no organomegaly with normal bowel sounds, there is mild tenderness in the left pelvic area Extremity exam reveals no edema no cyanosis or clubbing Neurological examination reveals no gross focal deficits - Labs CBC & Chem 7: 05/22/20 10:53 05/22/20 10:53 Labs: Abnormal Lab Results - Last 24 Hours (Table) 05/21/20 05/22/20 05/22/20 Range/Units 11:32 10:53 10:53 RBC 2.15 L (3.80-5.40) m/uL Hgb 6.8 L* D (11.4-16.0) gm/dL Hct 22.2 L (34.0-46.0) % MCV 103.5 H (80.0-100.0) fL MCHC 30.8 L (31.0-37.0) g/dL RDW 19.0 H (11.5-15.5) % Plt Count 127 L (150-450) k/uL Lymphocytes # 0.6 L (1.0-4.8) k/uL Sodium 136 L (137-145) mmol/L AST 116 H (14-36) U/L ALT 138 H (4-34) U/L Total Protein 5.7 L (6.3-8.2) g/dL Albumin 3.1 L (3.5-5.0) g/dL Ur Leukocyte Esterase Large H (Negative) Urine WBC 106 H (0-5) /hpf Urine Bacteria Rare H (None) /hpf Urine Mucus Rare H (None) /hpf Microbiology - Last 24 Hours (Table) 05/21/20 11:32 Urine Culture - Preliminary Urine,Voided Assessment and Plan Plan: 1. Sepsis as evidenced by leukocytosis, elevated lactic acid, and evidence of urinary tract infection. Patient was started on IV Rocephin in the emergency room, she was given IV fluid boluses per sepsis protocol 2. Underlying history of malignant neoplasm of the right ovary patient is followed by Dr. Smith 3. Evidence of anemia hemoglobin 9.5 4. Elevated liver enzymes 5. Anemia likely related to chemotherapy oncology consult At this time patient is admitted to medical floor continue with IV Rocephin awaiting blood culture and urine culture results Consult Dr. Smith in regard to history of ovarian cancer with history of chemotherapy Will follow during this admission for medical management
[2020-05-22] MEDS: LORATADINE 10 MG TAB PO SCH (20:37)
[2020-05-22] MEDS: FLUCONAZOLE 100 MG TAB PO SCH (20:37)
[2020-05-22 20:50] LABS: % Iron Saturation 93.44 (12.00-45.00)
[2020-05-22 20:59] LABS: Ferritin 879.6 ng/mL (10.0-291.0)
[2020-05-23] MEDS: MORPHINE SULFATE 2 MG/ML SYRINGE IV PRN (04:44)
[2020-05-23] MEDS: SODIUM CHLORIDE 0.9% 1,000 ML IV SCH ×3 (04:45→21:01)
[2020-05-23 08:00] LABS: Anisocytosis Slight; Basophils % (A) 0 %; Eosinophils # (A) 0.3 k/uL (0-0.7); Eosinophils % (A) 3 %; HCT 23.3 % (34.0-46.0); HGB 7.6 gm/dL (11.4-16.0); Hypochromasia Moderate; Lymphocytes # (A) 1.3 k/uL (1.0-4.8); Lymphocytes % (A) 12 %; MCH 32.9 pg (25.0-35.0); MCHC 32.6 g/dL (31.0-37.0); MCV 100.9 fL (80.0-100.0); Macrocytosis Moderate; Mean Platelet Volume 7.4; Monocytes # (A) 0.2 k/uL (0-1.0); Monocytes % (A) 2 %; Neutrophils # (A) 8.9 k/uL (1.3-7.7); Neutrophils % (A) 83 %; Platelet Count 148 k/uL (150-450); RBC 2.31 m/uL (3.80-5.40); RDW 18.7 % (11.5-15.5); WBC 10.8 k/uL (3.8-10.6)
[2020-05-23 08:15] LABS: ALT 109 U/L (4-34); AST 76 U/L (14-36); African American GFR (CKD) >90 (>60 ml/min/1.73 sqM); Albumin 3.2 g/dL (3.5-5.0); Alkaline Phosphatase 96 U/L (38-126); Anion Gap 4 mmol/L; Blood Urea Nitrogen 8 mg/dL (7-17); Calcium 8.7 mg/dL (8.4-10.2); Carbon Dioxide 27 mmol/L (22-30); Chloride 106 mmol/L (98-107); Glucose 101 mg/dL (74-99); Non-African American GFR(CKD) 88 (>60 ml/min/1.73 sqM); Potassium 4.3 mmol/L (3.5-5.1); Sodium 137 mmol/L (137-145); Total Bilirubin 0.8 mg/dL (0.2-1.3); Total Protein 5.8 g/dL (6.3-8.2)
--- NOTE | 2020-05-23 13:08 | P.PN ---
Subjective Progress Note Date: 05/23/20 Principal diagnosis: Pelvic Pain Orders for iron studies were unfortunetly taken after blood transfusion, therefore not accurate level resulted, will ask them again to please pull from pre transfusion tube. Hemoglobin is improved after transfusion, LFTs are improving. Objective - Vital Signs Vital signs: Vital Signs Temp 98.3 F 05/23/20 09:00 Pulse 83 05/23/20 09:00 Resp 16 05/23/20 09:00 BP 107/68 05/23/20 09:00 Pulse Ox 97 05/23/20 09:00 Intake & Output 05/22/20 05/23/20 05/23/20 18:59 06:59 18:59 Intake Total 0 310 240 Balance 0 310 240 Intake: Oral 240 Blood Product 0 310 Rc Cpda-1 Unit 0 310 [id number] Other: Voiding Method Toilet Toilet Toilet # Voids 1 1 1 - Exam - Constitutional General appearance: cooperative, no acute distress - EENT Eyes: EOMI, PERRLA ENT: NA/AT, normal oropharynx - Neck Neck: normal ROM - Respiratory Respiratory: bilateral: CTA - Cardiovascular Rhythm: regular - Gastrointestinal General gastrointestinal: soft, tenderness Localized gastrointestinal: surgical scar: midline (Tender to palpate directly above pelvic bone) - Integumentary Integumentary: pale - Neurologic Neurologic: CNII-XII intact - Musculoskeletal Musculoskeletal: gait normal, generalized weakness, strength equal bilaterally - Psychiatric Psychiatric: A&O x's 3, appropriate affect, intact judgment & insight - Labs CBC & Chem 7: 05/24/20 06:42 05/24/20 06:42 Labs: Abnormal Lab Results - Last 24 Hours (Table) 05/22/20 05/22/20 05/23/20 Range/Units 10:53 15:44 07:04 WBC 10.8 H (3.8-10.6) k/uL RBC 2.31 L (3.80-5.40) m/uL Hgb 7.6 L (11.4-16.0) gm/dL Hct 23.3 L (34.0-46.0) % MCV 100.9 H (80.0-100.0) fL RDW 18.7 H (11.5-15.5) % Plt Count 148 L (150-450) k/uL Neutrophils # 8.9 H (1.3-7.7) k/uL Glucose (74-99) mg/dL Iron 242 H (50-170) ug/dL % Saturation 93.44 H (12.00-45.00) Ferritin 879.6 H (10.0-291.0) ng/mL AST (14-36) U/L ALT (4-34) U/L Total Protein (6.3-8.2) g/dL Albumin (3.5-5.0) g/dL Crossmatch See Detail 05/23/20 Range/Units 07:04 WBC (3.8-10.6) k/uL RBC (3.80-5.40) m/uL Hgb (11.4-16.0) gm/dL Hct (34.0-46.0) % MCV (80.0-100.0) fL RDW (11.5-15.5) % Plt Count (150-450) k/uL Neutrophils # (1.3-7.7) k/uL Glucose 101 H (74-99) mg/dL Iron (50-170) ug/dL % Saturation (12.00-45.00) Ferritin (10.0-291.0) ng/mL AST 76 H (14-36) U/L ALT 109 H (4-34) U/L Total Protein 5.8 L (6.3-8.2) g/dL Albumin 3.2 L (3.5-5.0) g/dL Crossmatch Microbiology - Last 24 Hours (Table) 05/21/20 13:58 Blood Culture - Preliminary Blood No Growth after 24 hours 05/21/20 13:44 Blood Culture - Preliminary Blood No Growth after 24 hours Assessment and Plan (1) Ovarian cancer Status: Acute Code(s): C56.9 - MALIGNANT NEOPLASM OF UNSPECIFIED OVARY SNOMED Code(s): 073613195 (2) Anemia Status: Acute Code(s): D64.9 - ANEMIA, UNSPECIFIED SNOMED Code(s): 700063155 (3) Abdominal pain Status: Acute Code(s): R10.9 - UNSPECIFIED ABDOMINAL PAIN SNOMED Code(s): 14091792 (4) Urinary tract infection Status: Acute Code(s): N39.0 - URINARY TRACT INFECTION, SITE NOT SPECIFIED SNOMED Code(s): 64368627 Plan: No confirmed etiology for complaints Treatment for UTI at the moment and assess for improvement Transfuse hemoglobin less than 7, one unit today Anemia secondary to chemotherapy - Status Post PRBC on 05/22 Re-run Iron studies pre-blood transfusion delay treatment one week - Follow-up with Dr. Smith on 05/27/20@1:30pm physician Attest: I have completed the full history and physical and agree with above dictation, dictated as a scribe
--- NOTE | 2020-05-23 14:06 | P.PN ---
Subjective Progress Note Date: 05/23/20 Saloni Dent is a 54-year-old female patient of Dr. Aguilar who presented to [facility] emergency room with a chief complaint of left flank pain and generalized weakness patient stated that her pain started about 10 days ago and has been worsening, she also has a known history of ovarian cancer with metastatic disease she has been maintained on chemotherapy she received chemotherapy on Tuesday, patient felt very weak and she decided to come to emergency room. She was evaluated in the emergency room vital examination on presentation revealed a temperature of 98.5 pulse 93 respiration 18 blood pressure 129/62 pulse ox 99% on room air her white blood count was 16.9 hemoglobin 9.5 platelet count 172 lactic acid was elevated at 5.1 patient had evidence of urinary tract infection liver enzymes AST and ALT were elevated at 208 and 159 patient was given fluid boluses in the emergency room per sepsis protocol she was started on IV Rocephin and was admitted to medical floor oncology consultation was requested. On 05/22/2020 patient was seen and examined on the medical floor she is alert and oriented 3 in no apparent distress there is no fever or chills no headache or dizziness no chest pain no shortness of breath no cough no nausea or vomiting no abdominal pain no diarrhea no blood in the stools no burning with urination no frequency or urgency and no hematuria. Blood count has improved however hemoglobin is down to 6.8 hematology oncology consult On 05/23/2020 patient was seen and examined on the medical floor she is alert and oriented 3 in no distress, she is still complaining of mild pain in the lower abdomen otherwise she denies any complaints at this time there is no fever or chills no headache or dizziness no chest pain no shortness of breath no cough no nausea or vomiting no diarrhea no blood in the stools no burning with urination no frequency or urgency no hematuria Objective - Vital Signs Vital signs: Vital Signs Temp 98.3 F 05/23/20 09:00 Pulse 83 05/23/20 09:00 Resp 16 05/23/20 09:00 BP 107/68 05/23/20 09:00 Pulse Ox 97 05/23/20 09:00 Intake & Output 05/22/20 05/23/20 05/23/20 18:59 06:59 18:59 Intake Total 0 310 240 Balance 0 310 240 Intake: Oral 240 Blood Product 0 310 Rc Cpda-1 Unit 0 310 [id number] Other: Voiding Method Toilet Toilet Toilet # Voids 1 1 1 - Exam On physical exam patient is alert and oriented 3 in no apparent distress HEENT head normocephalic and atraumatic Neck is supple no JVD no goiter no lymphadenopathy no carotid bruit Chest exam reveals a few scattered crackles bilaterally no wheezing Cardiac exam reveals regular heart sounds S1 and S2 no gallops no murmurs abdomen is soft nontender no organomegaly with normal bowel sounds, there is mild tenderness in the left pelvic area Extremity exam reveals no edema no cyanosis or clubbing Neurological examination reveals no gross focal deficits - Labs CBC & Chem 7: 05/23/20 07:04 05/23/20 07:04 Labs: Abnormal Lab Results - Last 24 Hours (Table) 05/22/20 05/22/20 05/23/20 Range/Units 10:53 15:44 07:04 WBC 10.8 H (3.8-10.6) k/uL RBC 2.31 L (3.80-5.40) m/uL Hgb 7.6 L (11.4-16.0) gm/dL Hct 23.3 L (34.0-46.0) % MCV 100.9 H (80.0-100.0) fL RDW 18.7 H (11.5-15.5) % Plt Count 148 L (150-450) k/uL Neutrophils # 8.9 H (1.3-7.7) k/uL Glucose (74-99) mg/dL Iron 242 H (50-170) ug/dL % Saturation 93.44 H (12.00-45.00) Ferritin 879.6 H (10.0-291.0) ng/mL AST (14-36) U/L ALT (4-34) U/L Total Protein (6.3-8.2) g/dL Albumin (3.5-5.0) g/dL Crossmatch See Detail 05/23/20 Range/Units 07:04 WBC (3.8-10.6) k/uL RBC (3.80-5.40) m/uL Hgb (11.4-16.0) gm/dL Hct (34.0-46.0) % MCV (80.0-100.0) fL RDW (11.5-15.5) % Plt Count (150-450) k/uL Neutrophils # (1.3-7.7) k/uL Glucose 101 H (74-99) mg/dL Iron (50-170) ug/dL % Saturation (12.00-45.00) Ferritin (10.0-291.0) ng/mL AST 76 H (14-36) U/L ALT 109 H (4-34) U/L Total Protein 5.8 L (6.3-8.2) g/dL Albumin 3.2 L (3.5-5.0) g/dL Crossmatch Microbiology - Last 24 Hours (Table) 05/21/20 13:58 Blood Culture - Preliminary Blood No Growth after 24 hours 05/21/20 13:44 Blood Culture - Preliminary Blood No Growth after 24 hours Assessment and Plan Plan: 1. Sepsis as evidenced by leukocytosis, elevated lactic acid, and evidence of urinary tract infection. Patient was started on IV Rocephin in the emergency room, she was given IV fluid boluses per sepsis protocol 2. Underlying history of malignant neoplasm of the right ovary patient is followed by Dr. Smith 3. Evidence of anemia hemoglobin 9.5 4. Elevated liver enzymes 5. Anemia likely related to chemotherapy oncology consult At this time patient is admitted to medical floor continue with IV Rocephin awaiting blood culture and urine culture results Consult Dr. Smith in regard to history of ovarian cancer with history of chemotherapy Will follow during this admission for medical management
[2020-05-23] MEDS: PHENAZOPYRIDINE 100 MG TAB PO SCH ×2 (15:01→21:02)
[2020-05-23] MEDS: DOCUSATE 100 MG CAP PO SCH ×2 (15:01→21:01)
[2020-05-23] MEDS: FLUCONAZOLE 100 MG TAB PO SCH (17:44)
[2020-05-23] MEDS: LORATADINE 10 MG TAB PO SCH (21:01)
[2020-05-24] MEDS: SODIUM CHLORIDE 0.9% 1,000 ML IV SCH ×2 (04:37→08:22)
[2020-05-24 07:09] LABS: Anisocytosis Slight; Basophils # (A) 0.1 k/uL (0-0.2); Basophils % (A) 1 %; Eosinophils # (A) 0.4 k/uL (0-0.7); Eosinophils % (A) 2 %; HCT 27.3 % (34.0-46.0); HGB 8.5 gm/dL (11.4-16.0); Hypochromasia Slight; Lymphocytes # (A) 1.3 k/uL (1.0-4.8); Lymphocytes % (A) 7 %; MCH 31.3 pg (25.0-35.0); Macrocytosis Moderate; Mean Platelet Volume 7.6; Monocytes # (A) 0.3 k/uL (0-1.0); Monocytes % (A) 2 %; Neutrophils # (A) 15.7 k/uL (1.3-7.7); Neutrophils % (A) 87 %; Platelet Count 180 k/uL (150-450); RBC 2.71 m/uL (3.80-5.40); RDW 19.1 % (11.5-15.5); WBC 18.2 k/uL (3.8-10.6)
[2020-05-24 07:17] LABS: ALT 102 U/L (4-34); AST 79 U/L (14-36); African American GFR (CKD) >90 (>60 ml/min/1.73 sqM); Albumin 3.4 g/dL (3.5-5.0); Alkaline Phosphatase 128 U/L (38-126); Anion Gap 4 mmol/L; Blood Urea Nitrogen 6 mg/dL (7-17); Calcium 9.3 mg/dL (8.4-10.2); Carbon Dioxide 30 mmol/L (22-30); Chloride 106 mmol/L (98-107); Glucose 102 mg/dL (74-99); Non-African American GFR(CKD) >90 (>60 ml/min/1.73 sqM); Potassium 4.6 mmol/L (3.5-5.1); Sodium 140 mmol/L (137-145); Total Bilirubin 0.6 mg/dL (0.2-1.3); Total Protein 6.3 g/dL (6.3-8.2)
[2020-05-24] MEDS: PHENAZOPYRIDINE 100 MG TAB PO SCH (08:12)
[2020-05-24] MEDS: DOCUSATE 100 MG CAP PO SCH (08:12)
[2020-05-24 08:20] VITALS: BP 123/66; PULSE 81; RESP 18; TEMP 98.4
--- NOTE | 2020-05-24 11:42 | P.DS ---
Providers Date of admission: 05/22/20 15:20 Expected date of discharge: 05/24/20 Attending physician: Narciso Palomo Consults: 05/21/20 14:37 Consult Physician Routine Consulting Provider: Tunde Smith Consult Reason/Comments: abdominal pain, lactic acidosis, chemo pt Do you want consulting provider notified?: Yes Primary care physician: Flower Aguilar Hospital Course: Diagnosis on discharge: 1. Sepsis as evidenced by leukocytosis, elevated lactic acid, and evidence of urinary tract infection. Patient was started on IV Rocephin in the emergency room, she was given IV fluid boluses per sepsis protocol 2. Underlying history of malignant neoplasm of the right ovary patient is followed by Dr. Smith 3. Evidence of anemia hemoglobin 9.5 4. Elevated liver enzymes 5. Anemia likely related to chemotherapy oncology consult Hospital course: Saloni Dent is a 54-year-old female patient of Dr. Aguilar who presented to [facility] emergency room with a chief complaint of left flank pain and generalized weakness patient stated that her pain started about 10 days ago and has been worsening, she also has a known history of ovarian cancer with metastatic disease she has been maintained on chemotherapy she received chemotherapy on Tuesday, patient felt very weak and she decided to come to emergency room. She was evaluated in the emergency room vital examination on presentation revealed a temperature of 98.5 pulse 93 respiration 18 blood pressure 129/62 pulse ox 99% on room air her white blood count was 16.9 hemoglobin 9.5 platelet count 172 lactic acid was elevated at 5.1 patient had evidence of urinary tract infection liver enzymes AST and ALT were elevated at 208 and 159 patient was given fluid boluses in the emergency room per sepsis protocol she was started on IV Rocephin and was admitted to medical floor oncology consultation was requested. On 05/22/2020 patient was seen and examined on the medical floor she is alert and oriented 3 in no apparent distress there is no fever or chills no headache or dizziness no chest pain no shortness of breath no cough no nausea or vomiting no abdominal pain no diarrhea no blood in the stools no burning with urination no frequency or urgency and no hematuria. Blood count has improved however hemoglobin is down to 6.8 hematology oncology consult On 05/23/2020 patient was seen and examined on the medical floor she is alert and oriented 3 in no distress, she is still complaining of mild pain in the lower abdomen otherwise she denies any complaints at this time there is no fever or chills no headache or dizziness no chest pain no shortness of breath no cough no nausea or vomiting no diarrhea no blood in the stools no burning with urination no frequency or urgency no hematuria On 05/24/2020 patient was seen and examined on the medical floor she is alert and oriented 3 in no apparent distress, she is afebrile she is feeling much better and denies any symptoms at this time, her white blood count is elevated, however patient received Neulasta recently, no clinical evidence of sepsis at this time, anemia improved after red blood cell transfusion hemoglobin today is 8.5 urine culture revealed normal neelam, blood culture 2 is negative, at this point patient can be discharged home she received IV Rocephin during this hospitalization and oral Diflucan, she will receive 5 days of oral Ceftin and Diflucan at home, she will follow-up with oncology on Tuesday, she was instructed to return to the hospital if her symptoms recur. Plan - Discharge Summary Discharge Rx Participant: Yes New Discharge Prescriptions: New Cefuroxime Axetil [Ceftin] 500 mg PO BID 5 Days #10 tab Fluconazole [Diflucan] 200 mg PO DAILY@1800 5 Days #5 tab Continue Loratadine [Claritin] 10 mg PO HS Cetirizine HCl/Pseudoephedrine [Zyrtec-D Tablet] 1 tab PO Q12H PRN PRN Reason: Allergy Symptoms Discontinued Ondansetron [Zofran] 4 mg PO Q6H PRN PRN Reason: Nausea Discharge Medication List Cetirizine HCl/Pseudoephedrine [Zyrtec-D Tablet] 1 tab PO Q12H PRN 05/21/20 [History] Loratadine [Claritin] 10 mg PO HS 05/21/20 [History] Cefuroxime Axetil [Ceftin] 500 mg PO BID 5 Days #10 tab 05/24/20 [Rx] Fluconazole [Diflucan] 200 mg PO DAILY@1800 5 Days #5 tab 05/24/20 [Rx] Follow up Appointment(s)/Referral(s): Flower Aguilar MD [Primary Care Provider] - 1-2 days Tunde Smith MD [STAFF PHYSICIAN] - 05/27/20 1:30 pm
== END 2020-05-24 13:20 | disposition home or self-care (01) | DRG 872 ==
LOC: EC 10:43 → 1SOBS 14:48 → OBSVTOIN 05-22 15:20
PROVIDERS: ADMIT Internal Medicine; ATTEND Internal Medicine
DX: A41.9 Sepsis, unspecified organism (principal); C56.9 Malignant neoplasm of unspecified ovary; E87.2 Acidosis; C79.9 Secondary malignant neoplasm of unspecified site; D64.81 Anemia due to antineoplastic chemotherapy; N30.90 Cystitis, unspecified without hematuria; T45.1X5A Adverse effect of antineoplastic and immunosuppressive drugs, initial encounter; R94.5 Abnormal results of liver function studies; Z90.710 Acquired absence of both cervix and uterus; Z90.79 Acquired absence of other genital organ(s); Z90.722 Acquired absence of ovaries, bilateral; Z79.899 Other long term (current) drug therapy
CPT/HCPCS: 36415; 74177; 76770; 80053; 81001; 82150; 82728; 83540; 83550; 83605; 83690; 85025; 86850; 86900; 86901; 86920; 87040; 87086; 96361; 96374; 96375; 99285

== ENCOUNTER 2021-06-20 13:59 | Emergency (ER) | payer BC ==
[2021-06-20 14:16] VITALS: BP 144/72; PULSE 84; RESP 18; TEMP 98.2
--- NOTE | 2021-06-20 14:33 | ED ---
General Adult HPI - General Chief complaint: Eye Problems Stated complaint: Eye problems Time Seen by Provider: 06/20/21 14:32 Source: patient Mode of arrival: ambulatory Limitations: no limitations - History of Present Illness Initial comments: Patient presents to the ED stating that she was doing some work around the house at about 11 AM this morning when she suddenly developed a "floater" in the center of her right eye visual field. Patient states that she saw her polisher aluminum shortly after her symptoms began, and her polisher aluminum examined (and took photos of) her right eye and told her that she had "3 holes in my right retina". Patient states that the polisher aluminum attempted to call an comber tender for her to be seen today, but was unsuccessful at contacting an comber tender, so the patient was instructed to come to the ED. Patient states that her polisher aluminum is concerned for the possibility of retinal detachment occurring. Patient denies any other visual changes besides the floater that she is complaining of. Patient denies decreased visual acuity, any pain, headache, eye pain, eye redness or discharge, trauma or injury, fever or chills, focal numbness/weakness/neuro deficit, speech difficulty, chest pain or pressure, dyspnea, palpitations, dizziness, nausea or vomiting, or any other symptoms or complaints. Patient states that she does wear corrective eyeglasses. - Related Data Home Medications Medication Instructions Recorded Confirmed Cetirizine HCl/Pseudoephedrine 1 tab PO Q12H PRN 05/21/20 05/21/20 [Zyrtec-D Tablet] Loratadine [Claritin] 10 mg PO HS 05/21/20 05/21/20 Previous Rx's Medication Instructions Recorded Cefuroxime Axetil [Ceftin] 500 mg PO BID 5 Days #10 tab 05/24/20 Fluconazole [Diflucan] 200 mg PO DAILY@1800 5 Days #5 tab 05/24/20 Allergies Allergy/AdvReac Type Severity Reaction Status Date / Time No Known Allergies Allergy Verified 06/20/21 14:15 Review of Systems ROS Statement: Those systems with pertinent positive or pertinent negative responses have been documented in the HPI. ROS Other: All systems not noted in ROS Statement are negative. Past Medical History Past Medical History: Cancer Additional Past Medical History / Comment(s): hx ovarian cancer History of Any Multi-Drug Resistant Organisms: None Reported Past Surgical History: Bowel Resection, Hernia Repair, Hysterectomy Past Anesthesia/Blood Transfusion Reactions: No Reported Reaction Past Psychological History: No Psychological Hx Reported Smoking Status: Never smoker Past Alcohol Use History: None Reported Past Drug Use History: None Reported General Exam Limitations: no limitations General appearance: alert, in no apparent distress Head exam: Present: atraumatic, normocephalic Eye exam: Present: normal appearance, PERRL, EOMI, other (Visual acuity: Right eye = 20/70 and left eye = 20/25) ENT exam: Present: mucous membranes moist Neck exam: Present: other (Trachea is in midline) Respiratory exam: Present: normal lung sounds bilaterally. Absent: respiratory distress, wheezes, rales, rhonchi, stridor Cardiovascular Exam: Present: regular rate, normal rhythm, normal heart sounds, other (Normal radial pulses bilaterally) Neurological exam: Present: alert, oriented X3, CN II-XII intact. Absent: motor sensory deficit Psychiatric exam: Present: normal affect, normal mood Skin exam: Present: warm, dry, intact, normal color Course Vital Signs 06/20/21 14:10 Temperature 98.2 F Pulse Rate 84 Respiratory 18 Rate Blood Pressure 144/72 O2 Sat by Pulse 99 Oximetry - Reevaluation(s) Reevaluation #1: 06/20/21 14:47 Case and H&P were discussed with Dr. Ramon (comber tender). He recommends placing 1 drop of Mydriacyl eye drops in the patient's right eye (for dilation) and sending the patient straight to his clinic at [address] [place] [address]. He states that he will see her there at 3:30 PM today (and about 45 minutes from now). He has no further recommendations at this time. 06/20/21 14:55 Patient is aware of my discussion with Dr. Ramon as above, and she feels comfortable being discharged from the ED after her right eye dilation drop has been placed. She agrees to go directly to Dr. Ramon's clinic at [address] [place] [address] upon discharge from the ED and meet Dr. Ramon there at 3:30 PM for her appointment. She was counseled about visual floaters, and she was clearly explained return and follow-up instructions. Patient feels comfortable with this plan. Disposition Clinical Impression: Floaters in visual field Disposition: HOME SELF-CARE Condition: Stable Instructions (If sedation given, give patient instructions): Visual Floaters (ED) Additional Instructions: Return to the ER immediately should you develop loss of vision, worsening visual changes, any significant pain, feeling dizzy or faint, or new or worsening symptoms. Follow up with Dr. Ramon (comber tender) in his clinic at 3:30pm today at [address] [place] [address] as discussed. Is patient prescribed a controlled substance at d/c from ED?: No Referrals: Flower Aguilar MD [Primary Care Provider] - 1-2 days Yaneth Ramon MD [STAFF PHYSICIAN] - 1-2 days Time of Disposition: 15:01
[2021-06-20] MEDS ORDERED: TROPICAMIDE 1% OPHTH DROPS 2 ML BTL RIGHT EYE STA (14:48)
== END 2021-06-20 15:05 | disposition home or self-care (01) ==
LOC: EC 13:59
DX: H43.391 Other vitreous opacities, right eye (principal)
CPT/HCPCS: 99283

== ENCOUNTER 2021-09-08 03:25 | Emergency (ER) | payer BC ==
[2021-09-08 04:02] LABS: Basophils # (A) 0.1 k/uL (0-0.2); Basophils % (A) 1 %; Eosinophils # (A) 0.3 k/uL (0-0.7); Eosinophils % (A) 5 %; HCT 38.4 % (34.0-46.0); HGB 12.6 gm/dL (11.4-16.0); Lymphocytes # (A) 1.6 k/uL (1.0-4.8); Lymphocytes % (A) 23 %; MCH 36.6 pg (25.0-35.0); MCHC 32.9 g/dL (31.0-37.0); MCV 111.4 fL (80.0-100.0); Macrocytosis Marked; Mean Platelet Volume 7.7; Monocytes # (A) 0.3 k/uL (0-1.0); Monocytes % (A) 4 %; Neutrophils # (A) 4.5 k/uL (1.3-7.7); Neutrophils % (A) 65 %; Platelet Count 179 k/uL (150-450); RBC 3.45 m/uL (3.80-5.40); RDW 14.8 % (11.5-15.5); WBC 6.9 k/uL (3.8-10.6)
[2021-09-08 04:16] LABS: ALT 50 U/L (4-34); AST 49 U/L (14-36); African American GFR (CKD) >90 (>60 ml/min/1.73 sqM); Albumin 3.9 g/dL (3.5-5.0); Alkaline Phosphatase 121 U/L (38-126); Amylase 57 U/L (30-110); Anion Gap 6 mmol/L; Blood Urea Nitrogen 12 mg/dL (7-17); Calcium 9.3 mg/dL (8.4-10.2); Carbon Dioxide 29 mmol/L (22-30); Chloride 103 mmol/L (98-107); Glucose 156 mg/dL (74-99); Lipase 88 U/L (23-300); Non-African American GFR(CKD) >90 (>60 ml/min/1.73 sqM); Potassium 4.5 mmol/L (3.5-5.1); Sodium 138 mmol/L (137-145); Total Bilirubin 0.5 mg/dL (0.2-1.3); Total Protein 7.1 g/dL (6.3-8.2)
[2021-09-08 04:51] LABS: Polychromasia Present
[2021-09-08 06:05] LABS: Appearance,Urine Cloudy (Clear); Bacteria,Urine Rare /hpf; Bilirubin,Urine Negative (Negative); Blood,Urine Negative (Negative); Color,Urine Light Yellow; Glucose,Urine (UA) Negative (Negative); Ketones,Urine Negative (Negative); Leukocyte Esterase,Urine Large (Negative); Mucus,Urine Rare /hpf; Nitrite,Urine Negative (Negative); PH, Urine 6.5 (5.0-8.0); Protein,Urine Negative (Negative); RBC,Urine 3 /hpf (0-5); Specific Gravity,Urine 1.014 (1.001-1.035); Squamous Epithelial Cell,Urine 7 /hpf (0-4); Transitional Epi Cells,Urine <1 /hpf (0-1); Urobilinogen,Urine <2.0 mg/dL (<2.0); WBC,Urine 37 /hpf (0-5)
[2021-09-08] MEDS ORDERED: ACET/COD 300 MG/30 MG STARTER PACK 6 TAB BTL PO STA (06:22)
[2021-09-08] MEDS ORDERED: cefTRIAXone 1,000 MG VIAL (IM USE) IM STA (06:22)
--- NOTE | 2021-09-08 06:26 | ED ---
Abdominal Pain HPI - General Chief Complaint: Abdominal Pain Stated Complaint: Right side pain Time Seen by Provider: 09/08/21 06:11 Source: patient, RN notes reviewed Mode of arrival: ambulatory Limitations: no limitations - History of Present Illness Initial Comments: 55-year-old female presents emergency Department chief complaint right-sided rib pain. Patient states that she's had right-sided pain into her back. Patient states that she's had some discomfort for last couple weeks for last few days significantly worsen. Patient states that does hurt to twist and bend does not feel short of breath. Patient denies any fevers or chills. Patient denies any change in urination bowel movements denies any chest pain. Patient does not that she has history of cancer states that they recently found enlarged lymph nodes and which that starting her on chemotherapy. Patient states that she is better at rest. - Related Data Home Medications Medication Instructions Recorded Confirmed Cetirizine HCl/Pseudoephedrine 1 tab PO Q12H PRN 05/21/20 05/21/20 [Zyrtec-D Tablet] Loratadine [Claritin] 10 mg PO HS 05/21/20 05/21/20 Previous Rx's Medication Instructions Recorded Cefuroxime Axetil [Ceftin] 500 mg PO BID 5 Days #10 tab 05/24/20 Fluconazole [Diflucan] 200 mg PO DAILY@1800 5 Days #5 tab 05/24/20 Cephalexin [Keflex] 500 mg PO Q8HR #21 cap 09/08/21 Allergies Allergy/AdvReac Type Severity Reaction Status Date / Time No Known Allergies Allergy Verified 09/08/21 03:31 Review of Systems ROS Statement: Those systems with pertinent positive or pertinent negative responses have been documented in the HPI. ROS Other: All systems not noted in ROS Statement are negative. Past Medical History Past Medical History: Cancer Additional Past Medical History / Comment(s): hx ovarian cancer History of Any Multi-Drug Resistant Organisms: None Reported Past Surgical History: Bowel Resection, Cholecystectomy, Hernia Repair, Hysterectomy Past Anesthesia/Blood Transfusion Reactions: No Reported Reaction Past Psychological History: No Psychological Hx Reported Smoking Status: Never smoker Past Alcohol Use History: None Reported Past Drug Use History: None Reported General Exam Limitations: no limitations General appearance: alert, in no apparent distress Head exam: Present: atraumatic, normocephalic, normal inspection Neck exam: Present: normal inspection. Absent: tenderness, meningismus, lym phadenopathy Respiratory exam: Present: normal lung sounds bilaterally, chest wall tenderness (Right-sided rib tenderness). Absent: respiratory distress, wheezes, rales, rhonchi, stridor Cardiovascular Exam: Present: regular rate, normal rhythm, normal heart sounds. Absent: systolic murmur, diastolic murmur, rubs, gallop, clicks GI/Abdominal exam: Present: soft, normal bowel sounds. Absent: distended, tenderness, guarding, rebound, rigid Back exam: Present: full ROM, CVA tenderness (R). Absent: tenderness, CVA tenderness (L), paraspinal tenderness, vertebral tenderness Neurological exam: Present: alert, oriented X3 Course Vital Signs 09/08/21 03:27 Temperature 97.2 F L Pulse Rate 94 Respiratory 18 Rate Blood Pressure 147/84 O2 Sat by Pulse 97 Oximetry Medical Decision Making - Medical Decision Making Patient is reproducible chest wall pain patient had does have evidence of urinary tract infection was CVA tenderness. Patient was given Rocephin 1 g. Patient is tolerating oral intake. Patient is comfortable discharged with close follow-up on oral antibiotics she'll notify her oncologist regarding her urinary tract infection. - Lab Data Result diagrams: 09/08/21 03:52 09/08/21 03:52 Lab Results 09/08/21 09/08/21 09/08/21 Range/Units 03:52 03:52 05:33 WBC 6.9 (3.8-10.6) k/uL RBC 3.45 L (3.80-5.40) m/uL Hgb 12.6 (11.4-16.0) gm/dL Hct 38.4 (34.0-46.0) % MCV 111.4 H (80.0-100.0) fL MCH 36.6 H (25.0-35.0) pg MCHC 32.9 (31.0-37.0) g/dL RDW 14.8 (11.5-15.5) % Plt Count 179 (150-450) k/uL MPV 7.7 Neutrophils % 65 % Lymphocytes % 23 % Monocytes % 4 % Eosinophils % 5 % Basophils % 1 % Neutrophils # 4.5 (1.3-7.7) k/uL Lymphocytes # 1.6 (1.0-4.8) k/uL Monocytes # 0.3 (0-1.0) k/uL Eosinophils # 0.3 (0-0.7) k/uL Basophils # 0.1 (0-0.2) k/uL Manual Slide Review Performed Polychromasia Present Macrocytosis Marked A Sodium 138 (137-145) mmol/L Potassium 4.5 (3.5-5.1) mmol/L Chloride 103 (98-107) mmol/L Carbon Dioxide 29 (22-30) mmol/L Anion Gap 6 mmol/L BUN 12 (7-17) mg/dL Creatinine 0.75 (0.52-1.04) mg/dL Est GFR (CKD-EPI)AfAm >90 (>60 ml/min/1.73 sqM) Est GFR (CKD-EPI)NonAf >90 (>60 ml/min/1.73 sqM) Glucose 156 H (74-99) mg/dL Calcium 9.3 (8.4-10.2) mg/dL Total Bilirubin 0.5 (0.2-1.3) mg/dL AST 49 H (14-36) U/L ALT 50 H (4-34) U/L Alkaline Phosphatase 121 (38-126) U/L Total Protein 7.1 (6.3-8.2) g/dL Albumin 3.9 (3.5-5.0) g/dL Amylase 57 (30-110) U/L Lipase 88 (23-300) U/L Urine Color Light Yellow Urine Appearance Cloudy H (Clear) Urine pH 6.5 (5.0-8.0) Ur Specific Amelia 1.014 (1.001-1.035) Urine Protein Negative (Negative) Urine Glucose (UA) Negative (Negative) Urine Ketones Negative (Negative) Urine Blood Negative (Negative) Urine Nitrite Negative (Negative) Urine Bilirubin Negative (Negative) Urine Urobilinogen <2.0 (<2.0) mg/dL Ur Leukocyte Esterase Large H (Negative) Urine RBC 3 (0-5) /hpf Urine WBC 37 H (0-5) /hpf Ur Squamous Epith Cells 7 H (0-4) /hpf Ur Transition Epith Cell <1 (0-1) /hpf Urine Bacteria Rare H (None) /hpf Urine Mucus Rare H (None) /hpf Disposition Clinical Impression: Chest wall pain, UTI (urinary tract infection) Disposition: HOME SELF-CARE Condition: Stable Instructions (If sedation given, give patient instructions): Chest Wall Pain (ED) Additional Instructions: Please return to the Emergency Department if symptoms worsen or any other concerns. Prescriptions: Cephalexin [Keflex] 500 mg PO Q8HR #21 cap Is patient prescribed a controlled substance at d/c from ED?: No Referrals: Flower Aguilar MD [Primary Care Provider] - 1-2 days Time of Disposition: 06:26
[2021-09-08 06:58] VITALS: BP 122/76; PULSE 78; RESP 16; TEMP 98.2
== END 2021-09-08 06:57 | disposition home or self-care (01) ==
LOC: EC 03:25
DX: N39.0 Urinary tract infection, site not specified (principal); R07.89 Other chest pain
CPT/HCPCS: 36415; 80053; 82150; 83690; 85025; 81001; 99284; 96372; J0696

== ENCOUNTER → 2022-04-06 | Outpatient (CLI) | payer BC ==
[2022-04-06 10:56] LABS: Anisocytosis Slight; Basophils % (A) 1 %; Eosinophils % (A) 1 %; HCT 26.6 % (34.0-46.0); Hypochromasia Slight; Lymphocytes # (A) 0.7 k/uL (1.0-4.8); Lymphocytes % (A) 25 %; MCH 35.3 pg (25.0-35.0); MCHC 33.7 g/dL (31.0-37.0); Macrocytosis Moderate; Mean Platelet Volume 10.1; Monocytes # (A) 0.2 k/uL (0-1.0); Monocytes % (A) 7 %; Neutrophils # (A) 1.8 k/uL (1.3-7.7); Neutrophils % (A) 63 %; Poikilocytosis Slight; RBC 2.54 m/uL (3.80-5.40); RDW 18.1 % (11.5-15.5); WBC 2.8 k/uL (3.8-10.6)
[2022-04-06 11:03] LABS: Magnesium 1.2 mg/dL (1.6-2.3); Potassium 4.3 mmol/L (3.5-5.1)
[2022-04-06 11:08] LABS: Platelet Count 93 k/uL (150-450)
== END | disposition home or self-care (01) ==
LOC: LABWHC1 10:13
PROVIDERS: ATTEND Family Medicine
DX: R79.89 Other specified abnormal findings of blood chemistry (principal)
CPT/HCPCS: 36415; 83735; 84132; 85025

== ENCOUNTER 2022-07-25 07:15 | Inpatient (IN) | payer BC ==
--- NOTE | 2022-07-25 07:31 | ED ---
General Adult HPI - General Chief complaint: Arrhythmia/Palpitations Stated complaint: heart palpitation and SOB Time Seen by Provider: 07/25/22 07:20 Source: patient, RN notes reviewed, old records reviewed Mode of arrival: wheelchair Limitations: no limitations - History of Present Illness Initial comments: This is a 36-year-old female who presents emergency Department with a past medical history significant for ovarian cancer. Patient is a chemo in the past. Patient has had some inflammation her lung and recently had a PET scan. Patient comes in today because she's been having some palpitations and some wheezing with her breathing which she states is from the information along which rides along the trachea. Patient states there is also left sided lateral chest pain. Patient denies any fever chills per patient states she's had a chronic cough since she's had coded. Patient denies abdominal pain patient's nausea vomiting diarrhea. Patient states she's on maintenance drug for her cancer which makes her hypokalemic and hypomagnesemic. - Related Data Home Medications Medication Instructions Recorded Confirmed Famotidine [Pepcid] 20 mg PO BID 03/03/22 03/03/22 hydrOXYzine HCL [Atarax] 50 mg PO DAILY 03/03/22 03/03/22 Allergies Allergy/AdvReac Type Severity Reaction Status Date / Time carboplatin Allergy Rash/Hives Verified 07/25/22 07:20 Review of Systems ROS Statement: Those systems with pertinent positive or pertinent negative responses have been documented in the HPI. ROS Other: All systems not noted in ROS Statement are negative. Past Medical History Past Medical History: Cancer Additional Past Medical History / Comment(s): hx ovarian cancer Reoccurence ovarian cancer August 2021, recent CT that showed inflammation pressing on trachea History of Any Multi-Drug Resistant Organisms: None Reported Past Surgical History: Bowel Resection, Cholecystectomy, Hernia Repair, Hysterectomy Past Anesthesia/Blood Transfusion Reactions: No Reported Reaction Past Psychological History: No Psychological Hx Reported Smoking Status: Never smoker Past Alcohol Use History: None Reported Past Drug Use History: None Reported General Exam - General Exam Comments Initial Comments: GENERAL: Patient is well-developed and well-nourished. Patient is nontoxic and well-hydrated and is in mild distress. ENT: Neck is soft and supple. No significant lymphadenopathy is noted. Oropharynx is clear. Moist mucous membranes. Neck has full range of motion without eliciting any pain. EYES: The sclera were anicteric and conjunctiva were pink and moist. Extraocular movements were intact and pupils were equal round and reactive to light. Eyelids were unremarkable. PULMONARY: Unlabored respirations. Good breath sounds bilaterally. No audible rales rhonchi or wheezing was noted. CARDIOVASCULAR: Patient is tachycardic at 120 beats a minute ABDOMEN: Soft and nontender with normal bowel sounds. SKIN: Skin is clear with no lesions or rashes and otherwise unremarkable. NEUROLOGIC: Patient is alert and oriented x3. Cranial nerves II through XII are grossly intact. Motor and sensory are also intact. Normal speech, volume and content. Symmetrical smile. MUSCULOSKELETAL: Normal extremities with adequate strength and full range of motion. No lower extremity swelling or edema. No calf tenderness. LYMPHATICS: No significant lymphadenopathy is noted PSYCHIATRIC: Normal psychiatric evaluation. Limitations: no limitations Course Vital Signs 07/25/22 07/25/22 07:18 08:50 Temperature 98.7 F Pulse Rate 115 H 109 H Respiratory 20 18 Rate Blood Pressure 115/77 114/69 O2 Sat by Pulse 96 92 L Oximetry Medical Decision Making - Medical Decision Making EKG was interpreted by myself shows sinus tachycardia 120 bpm NJ interval 111 QRS is 94 QT interval 380 QTC is 451. Patient's EKG shows no ST segment eleva tion or depression. Was pt. sent in by a medical professional or institution (JACLYN Regalado, CLINICAL DATA MANAGER, urgent care, hospital, or [facility]...) When possible be specific @ -No Did you speak to anyone other than the patient for history (EMS, parent, family, police, friend...)? What history was obtained from this source @ -No Did you review nursing and triage notes (agree or disagree)? Why? @ -I reviewed and agree with nursing and triage notes Were old charts reviewed (outside hosp., previous admission, EMS record, old EKG, old radiological studies, urgent care reports/EKG's, [facility] records)? Report findings @ -I reviewed prior radiological studies and prior lab work on this patient Differential Diagnosis (chest pain, altered mental status, abdominal pain women, abdominal pain men, vaginal bleeding, weakness, fever, dyspnea, syncope, headache, dizziness, GI bleed, back pain, seizure, CVA, palpatations, mental health, musculoskeletal)? @ -Differential Dyspnea: Coronary syndrome, arrhythmia, tamponade, asthma, COPD, pulmonary embolism, pneumonia, pneumothorax, pulmonary effusion, anaphylaxis, diabetic ketoacidosis, flailed chest, pulmonary contusion, diaphragmatic rupture, anemia, neuromuscula r, this is not meant to be an all-inclusive list. EKG interpreted by me (3pts min.). @ -As above X-rays interpreted by me (1pt min.). @ -Checks x-ray was interpreted by myself as diffuse pattern of mild opacities. CT interpreted by me (1pt min.). @ -Computed tomography scan was interpreted by myself. Computed tomography scan showed pericardial effusion no pulmonary embolism noted U/S interpreted by me (1pt. min.). @ -Echocardiogram of heart Ejection Fraction Was Normal There Is No Signs of Cardiac Output Was a Moderate Pericardial Effusion What testing was considered but not performed or refused? (CT, X-rays, U/S, labs)? Why? @ -None What meds were considered but not given or refused? Why? @ -I offered the patient pain medication she did not want any at this time Did you discuss the management of the patient with other professionals (didi banda i.e. , PA, CLINICAL DATA MANAGER, lab, RT, psych nurse, renal social worker, airplane first officer, teacher, service officer, correctional case manager)? Give summary @ -I spoke with Dr. Palomo he wanted to admit the patient admitted the patient. I also spoke with Dr. Redman he agreed to read the echo. Was smoking cessation discussed for >3mins.? @ -No Was critical care preformed (if so, how long)? @ -35 minutes Were there social determinants of health that impacted care today? How? (Homelessness, low income, unemployed, alcoholism, drug addiction, transportation, low edu. Level, literacy, decrease access to med. care, correction, rehab)? @ -No Was there de-escalation of care discussed even if they declined (Discuss DNR or withdrawal of care, Hospice)? DNR status @ -No What co-morbidities impacted this encounter? (DM, HTN, Smoking, COPD, CAD, Ca ncer, CVA, ARF, Chemo, Hep., AIDS, mental health diagnosis, sleep apnea, morbid obesity)? @ -None Was patient admitted / discharged? Hospital course, mention meds given and route, prescriptions, significant lab abnormalities, going to OR and other pertinent info. @ -Patient came in with dyspnea and chest pain. Chest x-ray showed questionab le vascular congestion. Patient had a CAT scan which showed pericardial effusion and ankle was done for that which showed moderate pericardial effusion without any tamponade at this point time I spoke with Dr. Palomo he agreed to admit the patient is a patient consult cardiology pulmonary and cardiothoracic surgery Undiagnosed new problem with uncertain prognosis? @ -No Drug Therapy requiring intensive monitoring for toxicity (Heparin, Nitro, Insulin, Cardizem)? @ -No Were any procedures done? @ -No Diagnosis/symptom? @ -Pericardial effusion Acute, or Chronic, or Acute on Chronic? @ -Acute Uncomplicated (without systemic symptoms) or Complicated (systemic symptoms)? @ -Complicated Side effects of treatment? @ -No Exacerbation, Progression, or Severe Exacerbation? @ -No Poses a threat to life or bodily function? How? (Chest pain, [place], [place], pneumonia, PE, COPD, DKA, ARF, appy, cholecystitis, CVA, Diverticulitis, Homicidal, Suicidal, threat to staff... and all critical care pts) @ -Yes could lead to cardiac tamponade and poor ejection fraction Diagnosis/symptom? @ -History of ovarian cancer Acute, or Chronic, or Acute on Chronic? @ -Chronic Uncomplicated (without systemic symptoms) or Complicated (systemic symptoms)? @ -Complicated Side effects of treatment? @ -none Exacerbation, Progression, or Severe Exacerbation] @ -no Poses a threat to life or bodily function? @ -no - Lab Data Result diagrams: 07/25/22 07:33 07/25/22 07:33 Lab Results 07/25/22 07/25/22 07/25/22 Range/Units 07:33 07:33 07:33 WBC 9.4 (3.8-10.6) k/uL RBC 3.32 L (3.80-5.40) m/uL Hgb 11.1 L (11.4-16.0) gm/dL Hct 33.8 L (34.0-46.0) % MCV 101.9 H (80.0-100.0) fL MCH 33.4 (25.0-35.0) pg MCHC 32.7 (31.0-37.0) g/dL RDW 16.1 H (11.5-15.5) % Plt Count 209 (150-450) k/uL MPV 7.8 Neutrophils % 77 % Lymphocytes % 15 % Monocytes % 4 % Eosinophils % 3 % Basophils % 0 % Neutrophils # 7.2 (1.3-7.7) k/uL Lymphocytes # 1.4 (1.0-4.8) k/uL Monocytes # 0.4 (0-1.0) k/uL Eosinophils # 0.2 (0-0.7) k/uL Basophils # 0.0 (0-0.2) k/uL Anisocytosis Slight Macrocytosis Slight PT 10.4 (9.0-12.0) sec INR 1.0 (<1.2) APTT 22.1 (22.0-30.0) sec D-Dimer 1.46 H (<0.60) mg/L FEU Sodium 135 L (137-145) mmol/L Potassium 4.0 (3.5-5.1) mmol/L Chloride 98 (98-107) mmol/L Carbon Dioxide 26 (22-30) mmol/L Anion Gap 11 mmol/L BUN 9 (7-17) mg/dL Creatinine 0.80 (0.52-1.04) mg/dL Est GFR (CKD-EPI)AfAm >90 (>60 ml/min/1.73 sqM) Est GFR (CKD-EPI)NonAf 84 (>60 ml/min/1.73 sqM) Glucose 188 H (74-99) mg/dL Calcium 9.0 (8.4-10.2) mg/dL Magnesium 1.5 L (1.6-2.3) mg/dL Total Bilirubin 0.7 (0.2-1.3) mg/dL AST 30 (14-36) U/L ALT 28 (4-34) U/L Alkaline Phosphatase 117 (38-126) U/L Troponin I (0.000-0.034) ng/mL NT-Pro-B Natriuret Pep pg/mL Total Protein 7.5 (6.3-8.2) g/dL Albumin 4.2 (3.5-5.0) g/dL Influenza Type A (PCR) (Not Detectd) Influenza Type B (PCR) (Not Detectd) RSV (PCR) (Not Detectd) SARS-CoV-2 (PCR) (Not Detectd) 07/25/22 07/25/22 07/25/22 Range/Units 07:33 07:33 07:45 WBC (3.8-10.6) k/uL RBC (3.80-5.40) m/uL Hgb (11.4-16.0) gm/dL Hct (34.0-46.0) % MCV (80.0-100.0) fL MCH (25.0-35.0) pg MCHC (31.0-37.0) g/dL RDW (11.5-15.5) % Plt Count (150-450) k/uL MPV Neutrophils % % Lymphocytes % % Monocytes % % Eosinophils % % Basophils % % Neutrophils # (1.3-7.7) k/uL Lymphocytes # (1.0-4.8) k/uL Monocytes # (0-1.0) k/uL Eosinophils # (0-0.7) k/uL Basophils # (0-0.2) k/uL Anisocytosis Macrocytosis PT (9.0-12.0) sec INR (<1.2) APTT (22.0-30.0) sec D-Dimer (<0.60) mg/L FEU Sodium (137-145) mmol/L Potassium (3.5-5.1) mmol/L Chloride (98-107) mmol/L Carbon Dioxide (22-30) mmol/L Anion Gap mmol/L BUN (7-17) mg/dL Creatinine (0.52-1.04) mg/dL Est GFR (CKD-EPI)AfAm (>60 ml/min/1.73 sqM) Est GFR (CKD-EPI)NonAf (>60 ml/min/1.73 sqM) Glucose (74-99) mg/dL Calcium (8.4-10.2) mg/dL Magnesium (1.6-2.3) mg/dL Total Bilirubin (0.2-1.3) mg/dL AST (14-36) U/L ALT (4-34) U/L Alkaline Phosphatase (38-126) U/L Troponin I <0.012 (0.000-0.034) ng/mL NT-Pro-B Natriuret Pep 64 pg/mL Total Protein (6.3-8.2) g/dL Albumin (3.5-5.0) g/dL Influenza Type A (PCR) Not Detected (Not Detectd) Influenza Type B (PCR) Not Detected (Not Detectd) RSV (PCR) Not Detected (Not Detectd) SARS-CoV-2 (PCR) Not Detected (Not Detectd) Disposition Clinical Impression: Pericardial effusion, History of ovarian cancer Disposition: ADMITTED IP TO THIS HOSP Referrals: Flower Aguilar MD [Primary Care Provider] - 1-2 days Time of Disposition: 10:58
[2022-07-25 07:46] LABS: Anisocytosis Slight; Basophils % (A) 0 %; Eosinophils # (A) 0.2 k/uL (0-0.7); Eosinophils % (A) 3 %; HCT 33.8 % (34.0-46.0); HGB 11.1 gm/dL (11.4-16.0); Lymphocytes # (A) 1.4 k/uL (1.0-4.8); Lymphocytes % (A) 15 %; MCH 33.4 pg (25.0-35.0); MCHC 32.7 g/dL (31.0-37.0); MCV 101.9 fL (80.0-100.0); Macrocytosis Slight; Mean Platelet Volume 7.8; Monocytes # (A) 0.4 k/uL (0-1.0); Monocytes % (A) 4 %; Neutrophils # (A) 7.2 k/uL (1.3-7.7); Neutrophils % (A) 77 %; Platelet Count 209 k/uL (150-450); RBC 3.32 m/uL (3.80-5.40); RDW 16.1 % (11.5-15.5); WBC 9.4 k/uL (3.8-10.6)
--- NOTE | 2022-07-25 07:52 | XR ---
EXAMINATION TYPE: XR chest 2V DATE OF EXAM: 07/25/2022 7:44 AM COMPARISON: Chest radiographs from 07/23/2022 TECHNIQUE: XR chest 2V Frontal and lateral views of the chest. CLINICAL INDICATION:Female, 56 years old with history of dysrhythmia; FINDINGS: Lungs/Pleura: There is no evidence of pleural effusion, focal consolidation, or pneumothorax. Pulmonary vascularity: Pulmonary vascular congestion. Heart/mediastinum: Cardiomediastinal silhouette is enlarged and stable. Musculoskeletal: No acute osseous pathology. IMPRESSION: Cardiomegaly and mild pulmonary vascular congestion. Correlate with BNP for congestive heart failure.
[2022-07-25 07:59] LABS: ALT 28 U/L (4-34); AST 30 U/L (14-36); African American GFR (CKD) >90 (>60 ml/min/1.73 sqM); Albumin 4.2 g/dL (3.5-5.0); Alkaline Phosphatase 117 U/L (38-126); Anion Gap 11 mmol/L; Blood Urea Nitrogen 9 mg/dL (7-17); Carbon Dioxide 26 mmol/L (22-30); Chloride 98 mmol/L (98-107); Glucose 188 mg/dL (74-99); Magnesium 1.5 mg/dL (1.6-2.3); Non-African American GFR(CKD) 84 (>60 ml/min/1.73 sqM); Sodium 135 mmol/L (137-145); Total Bilirubin 0.7 mg/dL (0.2-1.3); Total Protein 7.5 g/dL (6.3-8.2)
[2022-07-25 08:01] LABS: Partial Thromboplastin Time 22.1 sec (22.0-30.0); Prothrombin Time 10.4 sec (9.0-12.0)
--- NOTE | 2022-07-25 08:46 | CT ---
EXAMINATION TYPE: CT chest angio for PE CT DLP: 415.7 mGycm, Automated exposure control for dose reduction was used. DATE OF EXAM: 07/25/2022 8:25 AM COMPARISON: PET/CT 07/23/2022, CT chest 07/12/2022 CLINICAL INDICATION:Female, 56 years old with history of Shortness of breath, chest pain, elevated d- dimer; R/O pe TECHNIQUE/CONTRAST: CTA scan of the thorax is performed with IV Contrast, patient injected with 60 mL of Isovue 370, pulm onary embolism protocol. MIP images are created and reviewed these are created on a separate worksta tion.. FINDINGS: Pulmonary Artery: There is no evidence for a filling defect within the pulmonary vasculature to sugge st acute pulmonary embolism. The pulmonary artery is of normal size. Lungs/Pleura: Thickening of the clivus septa. No focal consolidation pneumothorax present with right middle lobe pulmonary nodule measuring 11 mm. Pleural thickening along the medial aspect of the right lower lobe has seen on prior PET measuring approximately 4.1 x 1.0 cm. Airway: Large airways are patent Heart: There is moderate pericardial effusion now with flattening of the interventricular septum. Vasculature: No evidence of aortic aneurysm. Mediastinum: Mediastinal lymphadenopathy as well as lower neck adenopathy which are all FDG avid on P ET from 07/23/2022. Right low paratracheal lymph node measuring up to 13 mm in short axis. Right pulm onary hilum lymph nodes measuring up to 2.5 x 1.7 cm. Right inferior pulmonary hilum lymph node measu ring up to 2.0 x 1.4 cm. Musculoskeletal: No acute osseous abnormalities Soft Tissues: Unremarkable. Lower neck: Lower neck lymph nodes which are FDG avid measuring up to 1.9 cm on the right and 1.9 cm on the left. Upper Abdomen: Upper abdominal lymphadenopathy as seen on prior/CT the largest in the gisele hepatis m easuring 4.0 x 2.4 cm. The largest gastrohepatic ligament lymph node measuring 18 mm in short axis. IMPRESSION: 1. Pulmonary vascular congestion with Moderate pericardial effusion, correlate for cardiac tamponade. 2. No evidence of pulmonary embolism. 3. Upper abdominal lymphadenopathy and mediastinal lymphadenopathy concerning for either metastatic d isease from patient's known ovarian cancer or new primary lung malignancy and/or both.
[2022-07-25] MEDS: MAGNESIUM SULFATE-D5W PMX 1 GM in DEXTROSE/WATER 1 100ML.BAG IVPB SCH ×2 (10:53→11:59)
--- NOTE | 2022-07-25 11:15 | P.HPIM ---
History of Present Illness H&P Date: 07/25/22 Chief Complaint: Palpitations pericardial effusion This is a 56-year-old female patient who presented with concerns of palpitations and shortness of breath. Patient has past medical history of ovarian cancer with metastatic disease in which he follows with oncology services out of [facility]. Patient reports she is she's had ongoing shortness of breath over the past 2 years which she has followed with pulmonary services. Patient recently had a PET scan ordered per pulmonary to address this issue. Patient reports that last night she had increased episodes of palpitations with wheezing prompting her to come to the ER for further evaluation. Chest x-ray completed showing cardiomegaly and mild pulmonary vascular congestion. Chest CTA completed showing pulmonary vascular congestion with moderate pericardial effusion correlate for cardiac tamponade no evidence of pulmonary embolism upper abdominal lymphadenopathy mediastinal lymph nodes the neck concerning for me tastatic disease from patient's known ovarian cancer or new primary lung malignancy and/or both. Patient has a history of ovarian cancer in 2008 2013 with recurrence of ovarian cancer in August 2021. Patient has past medical history of bowel resection cholecystectomy and hysterectomy. 2-D echo has been ordered per ER team. Pulmonary, oncology and cardiothoracic surgery has been consulted. Current vital signs temp 98.7, heart rate 109, respiratory rate 18, blood pressure 114/69 pulse ox 96% on room air at this time patient is sitting comfortably in bed. Patient does have notable cough upon auscultation. Patient denies chest pain at this time. Patient denies nausea vomiting or diarrhea. Patient denies any urinary burning or frequency Review of Systems please refer to HPI otherwise unremarkable Past Medical History Past Medical History: Cancer Additional Past Medical History / Comment(s): hx ovarian cancer Reoccurence ovarian cancer August 2021, recent CT that showed inflammation pressing on trachea History of Any Multi-Drug Resistant Organisms: None Reported Past Surgical History: Bowel Resection, Cholecystectomy, Hernia Repair, Hysterectomy Past Anesthesia/Blood Transfusion Reactions: No Reported Reaction Past Psychological History: No Psychological Hx Reported Smoking Status: Never smoker Past Alcohol Use History: None Reported Past Drug Use History: None Reported Medications and Allergies Home Medications Medication Instructions Recorded Confirmed Type Famotidine [Pepcid] 20 mg PO BID 03/03/22 03/03/22 History hydrOXYzine HCL [Atarax] 50 mg PO DAILY 03/03/22 03/03/22 History Allergies Allergy/AdvReac Type Severity Reaction Status Date / Time carboplatin Allergy Rash/Hives Verified 07/25/22 07:20 Physical Exam Vitals: Vital Signs Temp Pulse Resp BP Pulse Ox 07/25/22 08:50 109 H 18 114/69 92 L 07/25/22 07:18 98.7 F 115 H 20 115/77 96 Intake and Output 07/24/22 07/25/22 07/25/22 21:59 06:59 14:59 Other: Weight 95.708 kg Head normocephalic Neck supple Lungs lung sounds was multiple wheezing Heart regular rate and rhythm S1-S2, no rub or gallop Abdomen is soft nontender nondistended positive bowel sounds no hepatosplenomegaly Extremities no edema Neuro alert and orientated to 3 Results CBC & Chem 7: 07/25/22 07:33 07/25/22 07:33 Labs: Abnormal Lab Results - Last 24 Hours (Table) 07/25/22 07/25/22 07/25/22 Range/Units 07:33 07:33 07:33 RBC 3.32 L (3.80-5.40) m/uL Hgb 11.1 L (11.4-16.0) gm/dL Hct 33.8 L (34.0-46.0) % MCV 101.9 H (80.0-100.0) fL RDW 16.1 H (11.5-15.5) % D-Dimer 1.46 H (<0.60) mg/L FEU Sodium 135 L (137-145) mmol/L Glucose 188 H (74-99) mg/dL Magnesium 1.5 L (1.6-2.3) mg/dL Assessment and Plan Assessment: 1. Palpitations and shortness breath secondary to pericardial effusion 2. History of ovarian cancer with metastatic. Patient reports follows with oncology services out of [facility] 3. History of anemia 4. Elevated d-dimer CTA was negative for PE At this time patient will be admitted Pulmonary, cardiothoracic surgery and oncology service is consulted 2-D echo ordered Repeat labs ordered Time with Patient: Greater than 30 (Greater than 60% of the total time spent in counseling and coordination of care)
--- NOTE | 2022-07-25 13:51 | CA ---
Transthoracic Echo Report Name: Saloni Dent Age: 56 Gender: F : 1965 Exam Date: 07/25/2022 09:15 Exam Location: [facility] Ht (in): 66 Wt (lb): 211 Ordering Physician: Feliberto Shi MD Attending/Referring Phys: Tod Thibodeaux MD Nipple Threader Suzanna Tirado, JILLIAN Procedure CPT: Indications: chest pain, pericardial effusion Cardiac Hx: Technical Quality: Fair Contrast 1: Total Dose (mL): Contrast 2: Total Dose (mL): MEASUREMENTS (Male / Female) Normal Values 2D ECHO LV Diastolic Diameter PLAX 4.3 cm 4.2 - 5.9 / 3.9 - 5.3 cm LV Systolic Diameter PLAX 2.9 cm IVS Diastolic Thickness 1.2 cm 0.6 - 1.0 / 0.6 - 0.9 cm LVPW Diastolic Thickness 1.0 cm 0.6 - 1.0 / 0.6 - 0.9 cm LV Relative Wall Thickness 0.5 RV Internal Dim ED PLAX 3.1 cm M-MODE Aortic Root Diameter MM 3.2 cm LA Systolic Diameter MM 4.4 cm LA Ao Ratio MM 1.3 DOPPLER AV Peak Velocity 130.7 cm/s AV Peak Gradient 6.8 mmHg LVOT Peak Velocity 93.6 cm/s LVOT Peak Gradient 3.5 mmHg MV Area PHT 4.3 cm??? Mitral E Point Velocity 68.2 cm/s Mitral A Point Velocity 63.1 cm/s Mitral E to A Ratio 1.1 MV Deceleration Time 175.6 ms MV E' Velocity 5.7 cm/s Mitral E to MV E' Ratio 11.9 TR Peak Velocity 215.6 cm/s TR Peak Gradient 18.6 mmHg Right Ventricular Systolic Press 23.6 mmHg FINDINGS Left Ventricle Mildly increased left ventricular wall thickness. Left ventricular cavity size normal. Normal left ventricular systolic function with no obvious regional wall motion abnormalities. Left ventricular ejection fraction is estimated at 55-60 %. Right Ventricle Normal right ventricular size and function. Right ventricular systolic pressure within normal limits. Right Atrium Normal right atrial size. Left Atrium Normal left atrial size. Mitral Valve Structurally normal mitral valve. No mitral stenosis, or prolapse.mild mitral regurgitation. Aortic Valve No aortic valve stenosis or regurgitation. Tricuspid Valve Structurally normal tricuspid valve. Mild tricuspid regurgitation. Pulmonic Valve Structurally normal pulmonic valve. Pericardium Moderate pericardial effusion. No tamponade noted. Aorta Normal size aortic root and proximal ascending aorta. CONCLUSIONS 1. Normal ventricle size and systolic function 2. Mild mitral and tricuspid regurgitation 3. Moderate pericardial effusion with no evidence of tamponade Previewed by: Dr. Trevin Redman MD (Electronically Signed) Final Date: 25 July 2022 13:51
--- NOTE | 2022-07-25 18:17 | P.GSCN ---
History of Present Illness Consult date: 07/25/22 Reason for Consult: Pericardial effusion without tamponade physiology Requesting physician: Feliberto Shi History of present illness: This is a 56-year-old female patient who follows outpatient with Dr. Aguilar for primary care, Dr. Thibodeaux for oncology as well as Dr. Hansen for pulmonology. She has a history of ovarian cancer originally diagnosed in 2008 and again in 2013, 2017, 2019, as well as 2021. She has been treated with chemotherapy as well as complete hysterectomy and BSO. Per the patient she has a chronic cough since 2020 due to Gemzar, which she did feel improved when given steroids by Dr. Hansen. She also had covid in January 2022. She underwent PET scan last Tuesday which demonstrated mediastinal/lower neck/intra-abdominal lymphadenopathy concerning for metastatic disease from her ovarian cancer versus new primary pulmonary malignancy. She reported to [facility] emergency room this morning secondary to complaints of palpitations, shortness of breath, left-sided chest pain. Lab work revealed WBC 9.4, hemoglobin 11.1, creatinine 0.8, magnesium 1.5, BNP 64, troponin negative, Covid/RSV/influenza negative, and d- dimer 1.46. CTA of the chest demonstrated pulmonary vascular congestion with moderate pericardial effusion, no pulmonary embolism, mediastinal and upper abdominal lymphadenopathy. Due to finding of moderate pericardial effusion a stat transthoracic echocardiogram was completed which demonstrated normal left ventricular size and function, mild mitral and tricuspid regurgitation, and moderate pericardial effusion with no evidence of tamponade. Consultation was then placed to Dr. Rankin from cardiothoracic surgery for treatment recommendations regarding pericardial effusion. Review of Systems Review of systems was completed and was negative except as noted - Cardiovascular Reports as per HPI, Reports chest pain, Reports palpitations, Reports rapid heart beat, Reports shortness of breath Past Medical History Past Medical History: Cancer Additional Past Medical History / Comment(s): hx ovarian cancer 2008, 2013, 2017, 2019, 2021, recent CT that showed inflammation pressing on trachea; chronic anemia; chronic hypomagnesemia History of Any Multi-Drug Resistant Organisms: None Reported Past Surgical History: Bowel Resection, Cholecystectomy, Hernia Repair, Hysterectomy Past Anesthesia/Blood Transfusion Reactions: No Reported Reaction Past Psychological History: No Psychological Hx Reported Smoking Status: Never smoker Past Alcohol Use History: None Reported Past Drug Use History: None Reported - Past Family History Father History Unknown: Yes Family Medical History: Hypertension, Myocardial Infarction ([place]) Mother Family Medical History: Diabetes Mellitus, Hypertension Medications and Allergies Home Medications Medication Instructions Recorded Confirmed Type Cetirizine HCl/Pseudoephedrine 1 tab PO BID 07/25/22 07/25/22 History [Zyrtec-D Tablet] Magnesium Oxide [Mag-Ox] 400 mg PO DAILY 07/25/22 07/25/22 History Niraparib Tosylate [Zejula] 200 mg PO DAILY 07/25/22 07/25/22 History Potassium Chloride ER [K-Dur 20] 20 meq PO BID 07/25/22 07/25/22 History Allergies Allergy/AdvReac Type Severity Reaction Status Date / Time carboplatin Allergy Rash/Hives Verified 07/25/22 11:38 Surgical - Exam Vital Signs Temp Pulse Resp BP Pulse Ox 98.7 F 115 H 20 115/77 96 07/25/22 07:18 07/25/22 07:18 07/25/22 07:18 07/25/22 07:18 07/25/22 07:18 CONSTITUTIONAL: Awake and alert, appears comfortable, cooperative, well- developed, well-nourished, no pain, no acute distress EYES: Pupils equal, round, reactive to light, normal ocular movement ENT: Moist mucous membranes without oral lesions present NECK: No masses, no bruits, trachea midline RESPIRATORY: Lungs sounds with wheezing present, right side greater than left side. Respirations even, nonlabored. Currently on room air with oxygen saturation 95%. Strong cough. CARDIOVASCULAR: S1, S2 present. Tachy but regular rate and rhythm, sinus tach on telemetry. Palpable peripheral pulses bilaterally. No edema present. GASTROINTESTINAL: Abdomen soft, nontender, nondistended without masses or organomegaly noted. There is no rebound or guarding present. Active bowel sounds present 4 quadrants. GENITOURINARY: Deferred INTEGUMENTARY: Skin is warm and dry with evidence of good perfusion. NEUROLOGIC: Cranial nerves II through XII intact, normal coordination, no obvious motor or sensory deficits, speech is normal MUSKULOSKELETAL: Able to move all extremities, strength equal bilaterally, normal posture PSYCHIATRIC: Alert and oriented to person place and time, appropriate affect, intact judgment and insight Results - Labs 07/25/22 07:33 07/25/22 07:33 Abnormal Lab Results - Last 24 Hours (Table) 07/25/22 07/25/22 07/25/22 Range/Units 07:33 07:33 07:33 RBC 3.32 L (3.80-5.40) m/uL Hgb 11.1 L (11.4-16.0) gm/dL Hct 33.8 L (34.0-46.0) % MCV 101.9 H (80.0-100.0) fL RDW 16.1 H (11.5-15.5) % D-Dimer 1.46 H (<0.60) mg/L FEU Sodium 135 L (137-145) mmol/L Glucose 188 H (74-99) mg/dL Magnesium 1.5 L (1.6-2.3) mg/dL Diabetes panel 07/25/22 Range/Units 07:33 Sodium 135 L (137-145) mmol/L Potassium 4.0 (3.5-5.1) mmol/L Chloride 98 (98-107) mmol/L Carbon Dioxide 26 (22-30) mmol/L BUN 9 (7-17) mg/dL Creatinine 0.80 (0.52-1.04) mg/dL Glucose 188 H (74-99) mg/dL Calcium 9.0 (8.4-10.2) mg/dL AST 30 (14-36) U/L ALT 28 (4-34) U/L Alkaline Phosphatase 117 (38-126) U/L Total Protein 7.5 (6.3-8.2) g/dL Albumin 4.2 (3.5-5.0) g/dL Calcium panel 07/25/22 Range/Units 07:33 Calcium 9.0 (8.4-10.2) mg/dL Albumin 4.2 (3.5-5.0) g/dL Pituitary panel 07/25/22 Range/Units 07:33 Sodium 135 L (137-145) mmol/L Potassium 4.0 (3.5-5.1) mmol/L Chloride 98 (98-107) mmol/L Carbon Dioxide 26 (22-30) mmol/L BUN 9 (7-17) mg/dL Creatinine 0.80 (0.52-1.04) mg/dL Glucose 188 H (74-99) mg/dL Calcium 9.0 (8.4-10.2) mg/dL Adrenal panel 07/25/22 Range/Units 07:33 Sodium 135 L (137-145) mmol/L Potassium 4.0 (3.5-5.1) mmol/L Chloride 98 (98-107) mmol/L Carbon Dioxide 26 (22-30) mmol/L BUN 9 (7-17) mg/dL Creatinine 0.80 (0.52-1.04) mg/dL Glucose 188 H (74-99) mg/dL Calcium 9.0 (8.4-10.2) mg/dL Total Bilirubin 0.7 (0.2-1.3) mg/dL AST 30 (14-36) U/L ALT 28 (4-34) U/L Alkaline Phosphatase 117 (38-126) U/L Total Protein 7.5 (6.3-8.2) g/dL Albumin 4.2 (3.5-5.0) g/dL - Imaging Chest x-ray: report reviewed, image reviewed CT scan - chest: report reviewed, image reviewed Additional studies: [place] [id number] as well as echocardiogram films reviewed Assessment and Plan Assessment: 1. Moderate pericardial effusion with no tamponade physiology 2. Palpitations/chest pain/shortness of breath, secondary to above 3. Mediastinal, abdominal lymphadenopathy present on CT scan, FDG avid on PET scan, concern for metastatic ovarian cancer versus new primary lung malignancy 4. Chronic cough secondary to previous Gemzar use 5. History of ovarian cancer status post total hysterectomy and BSO 6. Covid infection in January 2022 Plan: The patient was seen and examined at the bedside with her present. Chart/diagnostics were reviewed. The case was discussed in detail with Dr. Rankin who did review the patient's echocardiogram as well as a CTA. Currently the patient is in no significant distress, she denies any chest pain or short ness of breath currently. Her heart rate is in the low 100s, blood pressure is stable, she is oxygenating well on room air. She does have some wheezing as well as dry cough, both of which are chronic for her. She likely will need her pericardial fluid drained, timing to be determined. Usual perioperative course of pericardial window was discussed in detail with the patient and her , risks and benefits were reviewed, all questions were answered, and the patient does give consent. Will make NPO after midnight and obtain type and screen. Medical management of other comorbidities per internal medicine. More recommendations to follow. I have personally seen and examined the patient, performed the documentation and the assessment and plan as written. Number of minutes spent on the visit: 30. JILLIAN TaylorC
[2022-07-25] MEDS: POTASSIUM CHLORIDE ER 20 MEQ TAB.ER PO SCH (20:54)
[2022-07-25] MEDS: LORATADINE-PSEUDOEPH 5-120 MG 1 EACH TAB.ER.12H PO SCH (20:55)
[2022-07-26 06:23] LABS: Anisocytosis Slight; Basophils % (A) 0 %; Eosinophils # (A) 0.1 k/uL (0-0.7); Eosinophils % (A) 2 %; HCT 31.5 % (34.0-46.0); HGB 10.5 gm/dL (11.4-16.0); Lymphocytes % (A) 14 %; MCH 34.4 pg (25.0-35.0); MCHC 33.3 g/dL (31.0-37.0); MCV 103.1 fL (80.0-100.0); Macrocytosis Moderate; Mean Platelet Volume 7.4; Monocytes # (A) 0.4 k/uL (0-1.0); Monocytes % (A) 5 %; Neutrophils # (A) 5.4 k/uL (1.3-7.7); Neutrophils % (A) 77 %; Platelet Count 203 k/uL (150-450); RBC 3.05 m/uL (3.80-5.40); RDW 16.4 % (11.5-15.5)
[2022-07-26 06:46] LABS: ALT 25 U/L (4-34); AST 27 U/L (14-36); African American GFR (CKD) >90 (>60 ml/min/1.73 sqM); Albumin 3.9 g/dL (3.5-5.0); Alkaline Phosphatase 114 U/L (38-126); Anion Gap 8 mmol/L; Blood Urea Nitrogen 7 mg/dL (7-17); Calcium 8.5 mg/dL (8.4-10.2); Carbon Dioxide 29 mmol/L (22-30); Chloride 96 mmol/L (98-107); Glucose 165 mg/dL (74-99); Magnesium 1.7 mg/dL (1.6-2.3); Non-African American GFR(CKD) >90 (>60 ml/min/1.73 sqM); Potassium 4.2 mmol/L (3.5-5.1); Sodium 133 mmol/L (137-145); Total Bilirubin 0.8 mg/dL (0.2-1.3)
--- NOTE | 2022-07-26 08:37 | P.CNPUL ---
History of Present Illness Consult date: 07/25/22 History of present illness: [address], [place] [address] Pulmonology - Consult Note Patient Name: Saloni Dent Date of : 1965 Patient Status: Clinical Attending Provider: Marilee Hansen Date: 07/25/22 11:33 Initialization Date: 07/25/22 11:33 History of Present Illness Consult date: 07/25/22 Reason for consult: dyspnea History of present illness: 56-year-old female patient coming into the emergency because of shortness of breath. The patient has history of metastatic ovarian cancer. She was originally diagnosed in June 2008. She underwent a total abdominal hysterectomy and bilateral salpingo-oophorectomy. She also had lymph node dissection and she will debulking. Subsequently she received systemic chemotherapy with carboplatinum and Taxol. Back in 2013, she was found to have pelvic recurrence and elevation and the CA-125 level. She underwent cytoreduction with extensive laparotomy lysis of adhesions sigmoid resection and primary reanastomosis. She completed 6 cycles of systemic chemotherapy with carboplatin. Subsequently 2018, a colonoscopy guided biopsy of a 4 cm rectal mass showed tumor recurrence. She was restarted again on systemic chemotherapy using carboplatin and. At the later stage, the patient was placed on Rucaparib , no subsequent follow-up shows progressive vitamin C 125 level and computed tomography scan demonstrated evidence of disease recurrence with new pulmonary nodules and increasing lymphadenopathy within the mediastinum and abdomen. In 2019, she was started on carboplatinum and Gemzar. I'm not sure of any ongoing treatment follow-up following that. The patient came into the emergency department yesterday because of worsening shortness of breath. She has also palpitations. She's been having progressive increasing dyspnea over the past 2 years at least. The recent PET/CT showed evidence of pulmonary mediastinal lymphadenopathy, lower neck lymphadenopathy current abnormal lymphadenopathy is sitting with metastatic disease. The patient also had abnormal FDG activity in the lung and a pulmonary nodule measuring 11 mm in size. Based on worsening shortness of breath, the patient had a CTA of the chest yesterday that showed no evidence of any pulmonary embolism. There was lymphadenopathy as discussed in addition to a moderate- sized pericardial effusion. The patient is currently on room air oxygen. Pulse ox 92% pH is tachycardic with a heart rate of 109. BP is 114/69. She is afebrile. Abdomen is a cause of 9.4 with a hemoglobin 11.1 and a platelet count of 209. Normal coagulation profile. D-dimer is at 1.46. BUN is about a creatinine of 0.8 and sodium level is at 135. Review of Systems All systems: negative (Shortness of breath as discussed above) Past Medical History Past Medical History: Cancer Additional Past Medical History / Comment(s): hx ovarian cancer Reoccurence ovarian cancer August 2021 History of Any Multi-Drug Resistant Organisms: None Reported Past Surgical History: Bowel Resection, Cholecystectomy, Hernia Repair, Hysterectomy Past Anesthesia/Blood Transfusion Reactions: No Reported Reaction Past Psychological History: No Psychological Hx Reported Smoking Status: Never smoker Past Alcohol Use History: None Reported Past Drug Use History: None Reported Medications and Allergies Home Medications Medication Instructions Recorded Confirmed Type Famotidine [Pepcid] 20 mg PO BID 03/03/22 03/03/22 History hydrOXYzine HCL [Atarax] 50 mg PO DAILY 03/03/22 03/03/22 History Allergies Allergy/AdvReac Type Severity Reaction Status Date / Time carboplatin Allergy Rash/Hives Verified 07/25/22 07:20 Physical Exam GENERAL: Patient is well-developed and well-nourished. Patient is nontoxic and well- hydrated and is in mild distress. Patient is currently on 2 L of oxygen nasal cannula. ENT: Neck is soft and supple. No significant lymphadenopathy is noted. Oropharynx is clear. Moist mucous membranes. Neck has full range of motion without eliciting any pain. EYES: The sclera were anicteric and conjunctiva were pink and moist. Extraocular movements were intact and pupils were equal round and reactive to light. Eyelids were unremarkable. PULMONARY: Unlabored respirations. Good breath sounds bilaterally. No audible rales rhonchi or wheezing was noted. CARDIOVASCULAR: Patient is tachycardic at 120 beats a minute ABDOMEN: Soft and nontender with normal bowel sounds. SKIN: Skin is clear with no lesions or rashes and otherwise unremarkable. NEUROLOGIC: Patient is alert and oriented x3. Cranial nerves II through XII are grossly intact. Motor and sensory are also intact. Normal speech, volume and content. Symmetrical smile. MUSCULOSKELETAL: Normal extremities with adequate strength and full range of motion. No lower extremity swelling or edema. No calf tenderness. LYMPHATICS: No significant lymphadenopathy is noted PSYCHIATRIC: Normal psychiatric evaluation. Assessment and Plan Plan: Shortness of breath on that investigation. CT of the chest showed Lizz lymphadenopathy, metastatic pulmonary nodule, in addition to moderate-sized pericardial effusion. Consider underlying symptomatic pericardial effusion. Clinically, no looking like cardiac tamponade at this point in time. Cardiology is on consult. Echocardiogram has been ordered. Pericardial effusion, likely malignant Metastatic ovarian cancer details discussed above Metastatic pulmonary nodule Extensive mediastinal lymphadenopathyintra-abdominal lymphadenopathy please refer to the most recent PET/CT Chronic anemia Plan Proceed with echocardiogram Cardiology evaluation regarding the pericardial effusion Review the CT of the chest Will need a cardiothoracic evaluation for possible drainage of the pericardial effusion We'll follow Past Medical History Past Medical History: Cancer Additional Past Medical History / Comment(s): hx ovarian cancer Reoccurence ovarian cancer August 2021, recent CT that showed inflammation pressing on trachea History of Any Multi-Drug Resistant Organisms: None Reported Past Surgical History: Bowel Resection, Cholecystectomy, Hernia Repair, Hysterectomy Past Anesthesia/Blood Transfusion Reactions: No Reported Reaction Past Psychological History: No Psychological Hx Reported Smoking Status: Never smoker Past Alcohol Use History: None Reported Past Drug Use History: None Reported - Past Family History Father History Unknown: Yes Family Medical History: Hypertension, Myocardial Infarction ([place]) Mother Family Medical History: Diabetes Mellitus, Hypertension Medications and Allergies Home Medications Medication Instructions Recorded Confirmed Type Cetirizine HCl/Pseudoephedrine 1 tab PO BID 07/25/22 07/25/22 History [Zyrtec-D Tablet] Magnesium Oxide [Mag-Ox] 400 mg PO DAILY 07/25/22 07/25/22 History Niraparib Tosylate [Zejula] 200 mg PO DAILY 07/25/22 07/25/22 History Potassium Chloride ER [K-Dur 20] 20 meq PO BID 07/25/22 07/25/22 History Allergies Allergy/AdvReac Type Severity Reaction Status Date / Time carboplatin Allergy Rash/Hives Verified 07/25/22 11:38 Physical Exam Vitals: Vital Signs Temp Pulse Pulse Resp BP BP Pulse Ox 07/25/22 16:00 98.3 F 113 H 18 110/78 95 07/25/22 14:00 113 H 18 07/25/22 12:02 98.3 F 113 H 18 119/80 94 L 07/25/22 08:50 109 H 18 114/69 92 L 07/25/22 07:18 98.7 F 115 H 20 115/77 96 Intake and Output 07/25/22 07/25/22 07/25/22 06:59 14:59 22:59 Other: Voiding Method Toilet Weight 95.708 kg Results - Laboratory Findings CBC and BMP: 07/26/22 05:47 07/26/22 05:47 PT/INR, D-dimer PT 10.4 sec (9.0-12.0) 07/25/22 07:33 INR 1.0 (<1.2) 07/25/22 07:33 D-Dimer 1.46 mg/L FEU (<0.60) H 07/25/22 07:33 Abnormal lab findings: Abnormal Labs 07/25/22 07/25/22 07/25/22 07:33 07:33 07:33 RBC 3.32 L Hgb 11.1 L Hct 33.8 L MCV 101.9 H RDW 16.1 H D-Dimer 1.46 H Sodium 135 L Glucose 188 H Magnesium 1.5 L
[2022-07-26] MEDS: MAGNESIUM OXIDE 400 MG TAB PO SCH (10:40)
[2022-07-26] MEDS: POTASSIUM CHLORIDE ER 20 MEQ TAB.ER PO SCH ×2 (10:40→21:09)
[2022-07-26] MEDS: ZEJULA PO SCH (10:40)
[2022-07-26] MEDS: LORATADINE-PSEUDOEPH 5-120 MG 1 EACH TAB.ER.12H PO SCH ×3 (10:40→21:10)
[2022-07-26] MEDS ORDERED: ONDANSETRON 4 MG/2 ML VIAL ONE (12:05)
[2022-07-26] MEDS ORDERED: LACTATED RINGERS 1,000 ML IV ONE (12:39)
--- NOTE | 2022-07-26 12:56 | P.CONS ---
History of Present Illness - Reason for Consult Consult date: 07/26/22 hx ovarian cancer Requesting physician: Feliberto Shi - Chief Complaint SOB - History of Present Illness Patient is a 56-year-old female patient with a significant hx of metastatic ovarian cancer. She was originally diagnosed in June 2008 and underwent a total abdominal hysterectomy and bilateral salpingo-oophorectomy and follows with Dr. Cerda and Dr. Thibodeaux. She presented to the emergency room with complaints of shortness of breath and palpitations. Chest x-ray showed mild pulmonary vascular congestion and cardiomegaly. CTA chest showed vascular congestion with moderate pericardial effusion. No pulmonary embolism noted, and increased abdominal and mediastinal lymphadenopathy. Echo showed normal left ventricular function 5560 %, and moderate pericardial effusion. Cardiology was consulted, and plan for pericardial window today. Patient reports improvement in breathing today and also reports improvement in cough and wheezing. No other reported complaints at this time. Oncology hx: Patient was originally diagnosed with ovarian cancer in June 2008. She follows with Dr. Prabhakar from [place] and Dr. Thibodeaux from [facility]. She has followed up in our office with Dr. Smith for chemotherapy treatments as she wanted treatments closer to home. In June 2008 patient had DONNA, Bilateral salpingo-oopherectomy, LN dissection, tumor debulking with optimal cytoreduction. BRCA neg Patient has an extensive cancer history and has had multiple treatment regimens. She currently is following with Dr. Thibodeaux, and completed 7 cycles of Doxil/car pablito in February 2022, and started maintenance Zejula 05/2022. CT CAP from 07/12/22 showed scattered abdominal lymphadenopathy and new right middle lobe 14 mm nodule with soft tissue around the right pulmonary hilum and extends along right trachea PET scan on 07/23/2022 showed pulmonary mediastinal lymphadenopathy, lower neck lymphadenopathy, intra-abdominal lymphadenopathy including mesentery, gastrohe patic ligament and gisele hepatis. Findings likely relating to ovarian cancer, as pulmonary nodule demonstrated FDG activity below background levels. Review of Systems 10 point R [place] is negative except as stated in the HPI Past Medical History Past Medical History: Cancer Additional Past Medical History / Comment(s): hx ovarian cancer Reoccurence ovarian cancer August 2021, recent CT that showed inflammation pressing on trachea History of Any Multi-Drug Resistant Organisms: None Reported Past Surgical History: Bowel Resection, Cholecystectomy, Hernia Repair, Hysterectomy Past Anesthesia/Blood Transfusion Reactions: No Reported Reaction Past Psychological History: No Psychological Hx Reported Smoking Status: Never smoker Past Alcohol Use History: None Reported Past Drug Use History: None Reported - Past Family History Father History Unknown: Yes Family Medical History: Hypertension, Myocardial Infarction ([place]) Mother Family Medical History: Diabetes Mellitus, Hypertension Medications and Allergies Home Medications Medication Instructions Recorded Confirmed Type Cetirizine HCl/Pseudoephedrine 1 tab PO BID 07/25/22 07/25/22 History [Zyrtec-D Tablet] Magnesium Oxide [Mag-Ox] 400 mg PO DAILY 07/25/22 07/25/22 History Niraparib Tosylate [Zejula] 200 mg PO DAILY 07/25/22 07/25/22 History Potassium Chloride ER [K-Dur 20] 20 meq PO BID 07/25/22 07/25/22 History Allergies Allergy/AdvReac Type Severity Reaction Status Date / Time carboplatin Allergy Rash/Hives Verified 07/26/22 12:03 Physical Exam Vitals: Vital Signs Temp Pulse Pulse Resp BP BP BP 07/26/22 04:00 98.5 F 115 H 18 112/78 07/26/22 02:00 108 H 18 07/26/22 00:15 07/26/22 00:00 98 F 108 H 18 102/71 07/25/22 20:00 98.8 F 118 H 18 123/75 07/25/22 16:00 98.3 F 113 H 18 110/78 07/25/22 14:00 113 H 18 07/25/22 12:02 98.3 F 113 H 18 119/80 07/25/22 08:50 109 H 18 114/69 Pulse Ox 07/26/22 04:00 94 L 07/26/22 02:00 07/26/22 00:15 94 L 07/26/22 00:00 88 L 07/25/22 20:00 92 L 07/25/22 16:00 95 07/25/22 14:00 07/25/22 12:02 94 L 07/25/22 08:50 92 L Intake and Output 07/25/22 07/26/22 07/26/22 22:59 06:59 14:59 Other: Voiding Method Toilet Toilet # Voids 1 1 # Bowel Movements 1 - Constitutional General appearance: average body habitus, no acute distress - EENT Eyes: anicteric sclerae, EOMI ENT: hearing grossly normal - Respiratory Respiratory: bilateral: wheezing - Cardiovascular tachycardia Rhythm: regular Heart sounds: normal: S1, S2 Abnormal Heart Sounds: no systolic murmur, no diastolic murmur, no rub, no S3 Gallop, no S4 Gallop, no click, no other - Gastrointestinal General gastrointestinal: soft, no tenderness - Integumentary Integumentary: normal - Neurologic Neurologic: CNII-XII intact - Musculoskeletal Musculoskeletal: strength equal bilaterally - Psychiatric Psychiatric: A&O x's 3, appropriate affect, intact judgment & insight Results CBC & Chem 7: 07/26/22 05:47 07/26/22 05:47 Labs: Abnormal Lab Results - Last 24 Hours (Table) 07/26/22 07/26/22 Range/Units 05:47 05:47 RBC 3.05 L (3.80-5.40) m/uL Hgb 10.5 L (11.4-16.0) gm/dL Hct 31.5 L (34.0-46.0) % MCV 103.1 H (80.0-100.0) fL RDW 16.4 H (11.5-15.5) % Sodium 133 L (137-145) mmol/L Chloride 96 L (98-107) mmol/L Glucose 165 H (74-99) mg/dL Comments: PET scan and echo reviewed Chest x-ray: report reviewed CT scan - abdomen: report reviewed CT scan - chest: report reviewed CT scan - pelvis: report reviewed Assessment and Plan (1) Pericardial effusion Current Visit: Yes Status: Acute Priority: High Code(s): I31.39 - OTHER PERICARDIAL EFFUSION (NONINFLAMMATORY) SNOMED Code(s): 520536390 (2) Ovarian cancer Current Visit: Yes Status: Acute Priority: High Code(s): C56.9 - MALIGNANT NEOPLASM OF UNSPECIFIED OVARY SNOMED Code(s): 458205271 Plan: Pericardial effusion: -CTA chest showed vascular congestion with moderate pericardial effusion. No pulmonary embolism noted, and increased abdominal and mediastinal lymphadenopathy. Echo showed normal left ventricular function 5560 %, and moderate pericardial effusion. -Oxygen saturation 94% on 2L NC. Patient reports improvement in breathing today -Cardiothoracic was consulted, and plan for pericardial window today. Metastatic ovarian cancer: -She currently is following with Dr. Thibodeaux at [facility] and completed 7 c ycles of Doxil/carbo in February 2022, and started maintenance Zejula 05/2022. -CT CAP from 07/12/22 showed scattered abdominal lymphadenopathy and new right middle lobe 14 mm nodule with soft tissue around the right pulmonary hilum and extends along right trachea. PET scan on 07/23/2022 showed pulmonary mediastinal lymphadenopathy, lower neck lymphadenopathy, intra-abdominal lymphadenopathy including mesentery, gastrohepatic ligament and gisele hepatis. Findings likely relating to ovarian cancer, as pulmonary nodule demonstrated FDG activity below background levels. -Will continue daily Zejula and have f/u with Dr. Thibodeaux upon discharge -CA-125 ordered
[2022-07-26] MEDS ORDERED: MIDAZOLAM 2 MG/2 ML VIAL IVP ONE (13:02)
[2022-07-26] MEDS ORDERED: fentaNYL (PF) 50 MCG/1 ML VIAL IVP ONE ×6 (13:10→15:20)
--- NOTE | 2022-07-26 13:22 | P.ANPRN ---
Procedure Note - Anesthesia - Invasive Line Right Arterial Line Time Out Performed: Yes Date of Procedure: 07/26/22 Time of Procedure: 13:02 Location of Patient: PreOp Preparation: Sterile Prep, Sterile Dressing Arterial Line Location: Radial Ultrasound Used: No Narrative: Central line placement per sterile protocol utilized.
[2022-07-26] MEDS ORDERED: ETOMIDATE 2 MG/ML 10 ML VIAL ONE (13:47)
[2022-07-26] MEDS ORDERED: SODIUM CHLORIDE 0.9% 100 ML BAG ONE (13:47)
[2022-07-26] MEDS ORDERED: SUCCINYLCHOLINE CHLORIDE 200 MG/10 ML VIAL IV ONE (13:47)
[2022-07-26] MEDS ORDERED: MIDAZOLAM 2 MG/2 ML VIAL ONE (13:47)
[2022-07-26] MEDS ORDERED: LIDOCAINE 2% INJ 20 MG/ML (2 ML VIAL) ONE (13:47)
[2022-07-26] MEDS ORDERED: fentaNYL (PF) 50 MCG/ML 2 ML AMP ONE (13:47)
[2022-07-26] MEDS ORDERED: ceFAZolin 1,000 MG VIAL ONE (13:47)
[2022-07-26] MEDS ORDERED: PROPOFOL 10 MG/ML 20 ML VIAL IV ONE (13:47)
--- NOTE | 2022-07-26 13:47 | P.PN ---
Subjective Progress Note Date: 07/26/22 Principal diagnosis: Metastatic ovarian cancer with extensive mediastinal and intra-abdominal lymphadenopathy as well as a pericardial effusion, likely malignant 56-year-old female patient coming into the emergency because of shortness of breath. The patient has history of metastatic ovarian cancer. She was originally diagnosed in June 2008. She underwent a total abdominal hysterectomy and bilateral salpingo-oophorectomy. She also had lymph node dissection and she will debulking. Subsequently she received systemic chemotherapy with carboplatinum and Taxol. Back in 2013, she was found to have pelvic recurrence and elevation and the CA-125 level. She underwent cy toreduction with extensive laparotomy lysis of adhesions sigmoid resection and primary reanastomosis. She completed 6 cycles of systemic chemotherapy with carboplatin. Subsequently 2018, a colonoscopy guided biopsy of a 4 cm rectal mass showed tumor recurrence. She was restarted again on systemic chemotherapy using carboplatin and. At the later stage, the patient was placed on Rucaparib , no subsequent follow-up shows progressive vitamin C 125 level and computed tomography scan demonstrated evidence of disease recurrence with new pulmonary nodules and increasing lymphadenopathy within the mediastinum and abdomen. In 2019, she was started on carboplatinum and Gemzar. I'm not sure of any ongoing treatment follow-up following that. The patient came into the emergency department yesterday because of worsening shortness of breath. She has also palpitations. She's been having progressive increasing dyspnea over the past 2 years at least. The recent PET/CT showed evidence of pulmonary mediastinal lymphadenopathy, lower neck lymphadenopathy current abnormal lymphadenopathy is sitting with metastatic disease. The patient also had abnormal FDG activity in the lung and a pulmonary nodule measuring 11 mm in size. Based on worsening shortness of breath, the patient had a CTA of the chest yesterday that showed no evidence of any pulmonary embolism. There was lymphadenopathy as discussed in addition to a moderate- sized pericardial effusion. The patient is currently on room air oxygen. Pulse ox 92% pH is tachycardic with a heart rate of 109. BP is 114/69. She is afebrile. Abdomen is a cause of 9.4 with a hemoglobin 11.1 and a platelet count of 209. Normal coagulation profile. D-dimer is at 1.46. BUN is about a creatinine of 0.8 and sodium level is at 135. Reevaluated today on 07/26/2022 patient remains on the cardiac floor, scheduled to undergo pericardial window today. In the meantime the patient seems to be comfortable, she is on 3 L nasal cannula with O2 saturation of 90-95%. Today I had a chance to go over the CT of the chest and over the PET scan which was done recently on this patient, and explained to the patient that the findings are mostly findings consistent with metastatic ovarian cancer. Nonetheless the patient is scheduled to undergo pericardial window today, and this is mostly for moderate-sized pericardial effusion noted and apparently has progressed and sized. For her chronic cough which I was felt to be chemotherapy related, I rec ommended prednisone and this is to be tapered on outpatient basis. Recently the patient responded quite well to relatively high-dose of prednisone cough has completely resolved, but as the dose of the prednisone came down, the cough came back. Objective - Vital Signs Vital signs: Vital Signs Temp 98.3 F 07/26/22 12:00 Pulse 112 H 07/26/22 13:27 Resp 14 07/26/22 13:27 BP 112/74 07/26/22 13:27 Pulse Ox 92 L 07/26/22 13:27 FiO2 21 07/26/22 09:05 Intake & Output 07/25/22 07/26/22 07/26/22 18:59 06:59 18:59 Weight 95.708 kg Other: Voiding Method Toilet Toilet Toilet # Voids 1 1 # Bowel Movements 1 - Exam Physical Exam: Revealed a 56-year-old female, extremely pleasant, in no distress. Head: Atraumatic, normocephalic. HEENT:[Neck is supple.] [No neck masses.] [No thyromegaly.] [No JVD.] Right supraclavicular fullness is noted but could not actually feel lymph nodes. Chest: [Clear throughout, no crackles, no rhonchi, no wheezes.] Cardiac Exam: [Normal S1 and S2, no S3 gallop, no murmur.] Abdomen: [Soft, nontender, no megaly, no rebound, no guarding, normal bowel sounds.] Extremities: [No clubbing, no edema, no cyanosis.] Neurological Exam: [No focal neurologic deficit.] Alert oriented 3. Psychiatric: Normal mood affect and normal mental status examination. Skin: No rashes. - Labs CBC & Chem 7: 07/26/22 05:47 03/13/23 05:47 Labs: Abnormal Lab Results - Last 24 Hours (Table) 07/26/22 07/26/22 Range/Units 05:47 05:47 RBC 3.05 L (3.80-5.40) m/uL Hgb 10.5 L (11.4-16.0) gm/dL Hct 31.5 L (34.0-46.0) % MCV 103.1 H (80.0-100.0) fL RDW 16.4 H (11.5-15.5) % Sodium 133 L (137-145) mmol/L Chloride 96 L (98-107) mmol/L Glucose 165 H (74-99) mg/dL Assessment and Plan Assessment: Impression: Shortness of breath, multifactorial, Metastatic ovarian cancer Pericardial effusion, likely malignant unless for otherwise Metastatic pulmonary nodule Extensive mediastinal and intra-abdominal lymphadenopathy Chronic anemia gemzar induced pneumonitis/cough. Recommendation: Continue present supportive care measures Placed patient back on prednisone at 30 mg daily and will taper it on outpatient basis Proceed with pericardial window as scheduled today by Dr. Kaur Oncology to follow up on this patient regarding her metastatic ovarian cancer Could consider ultrasound or CT-guided biopsy of supraclavicular lymph nodes, and that to be addressed on outpatient basis, if felt necessary by oncology. We'll continue to follow Time with Patient: Greater than 30
--- NOTE | 2022-07-26 14:30 | P.ANPRN ---
Procedure Note - Anesthesia - KASSY Intraop Pre Bypass KASSY Intraop - Anesthesia Indication: Moderate pericardial effusion Date of Procedure: 07/26/22 Pre-operative Diagnosis: Pericardial effusion Post-operative Diagnosis: Pericardial effusion status post pericardial window Surgeon: John Kaur Left Ventricle: Circumferentially pericardial effusion of 1.4 cm seen which disappeared after the drainage through pericardial window. Ejection Fraction: Normal Regional Wall Motion Abnormalities: None Left Ventricle Hypertrophy: No R. Ventricle Function: Normal Anatomy: Trileaflet Aortic Stenosis: None Aortic Regurgitation: None Mitral Stenosis: None Mitral Regurgitation: Trace Tricuspid Stenosis: None Tricuspid Regurgitation: Trace Pulmonic Stenosis: None Pulmonic Regurgitation: None R. Atrial Dilation: No R. Atrial PFO: No L. Atrial Dilation: No Aortic Dissection: No Aortic Calcification: None Plural Effusion: None
--- NOTE | 2022-07-26 14:34 | P.OP ---
Date of Procedure: 07/26/22 Preoperative Diagnosis: Pericardial effusion, metastatic ovarian carcinoma. Postoperative Diagnosis: Same Procedure(s) Performed: Subxiphoid pericardial window Anesthesia: WANG Surgeon: John Kaur Manager Plan #1: Rob Greenwood Estimated Blood Loss (ml): 5 IV fluids (ml): 200 Pathology: other (Biopsy of pericardium for pathology, pericardial fluid for cytology) Condition: stable Disposition: PACU Indications for Procedure: 56-year-old female with known ovarian carcinoma. Presents with persistent and worsening cough as well as shortness of breath and tachycardia and relative hypotension. Echocardiogram shows moderate pericardial effusion which is confirmed by CT of the chest. Operative Findings: 500 mL of bloody pericardial fluid was drained. There were no obvious implants in the pericardium. Description of Procedure: Patient was brought to the operating room placed supine on the table. General anesthesia was induced and the patient was intubated. T probe was placed. The anterior torso was sterilely prepped and draped. Incision was made over the xiphoid process. Was carried down through skin and subcutaneous tissue to the midline fascia. The midline fascia was incised. The xiphoid process was mobilized and retracted superiorly. Dissection was carried beneath the xiphoid under the sternum up to the pericardium. The diaphragm was grasped with a Clover clamp and retracted inferiorly. The pericardium was incised area and bloody fluid under pressure was obtained and collected. Once we collected the fluid the heart was examined through the resulting opening. The opening was widened by removing a small piece of pericardium for pathology. Palpable pericardial implants were noted and we could not visualize any abnormality within the pericardial space through the small opening. 32-Wallisian chest tube was placed via separate stab incision into the pericardium. It was secured with an 0 Ethibond suture. Fascia was closed with 0 Vicryl suture. Subcutaneous was closed in layers with Vicryl suture. Skin was closed with a running subcuticular stitch. Pericardial drain was connected to a Pleur-evac. Patient was transferred to recovery in stable condition.
[2022-07-26] MEDS ORDERED: ONDANSETRON 4 MG/2 ML VIAL IVP ONE (15:20)
[2022-07-26] MEDS: ACETAMINOPHEN IV (For NPO) 1,000 MG in EMPTY BAG 1 BAG IVPB SCH ×2 (15:29→21:06)
[2022-07-26] MEDS ORDERED: droPERidol 5 MG/2 ML VIAL IVP ONE (15:36)
--- NOTE | 2022-07-26 16:11 | XR ---
EXAMINATION TYPE: XR chest 1V portable DATE OF EXAM: 07/26/2022 4:05 PM COMPARISON: Chest radiographs from 07/25/2022, CTA chest 07/25/2022 TECHNIQUE: XR chest 1V portable Portable AP radiograph of the chest. CLINICAL INDICATION:Female, 56 years old with history of Post Operative Pericardial window; FINDINGS: Lungs/Pleura: No pleural effusion pneumothorax. Left basilar atelectasis. Chronic senescent parenchym al change. Pulmonary vascularity: Unremarkable. Heart/mediastinum: Cardiomediastinal silhouette is enlarged and stable. Status post pericardial wind ow. Musculoskeletal: No acute osseous pathology. Dorsal osteophytosis of the thoracic spine. IMPRESSION: Status post pericardial window. No pneumothorax. Cardiomediastinal silhouette is relatively similar i n size. Left basilar atelectasis.
[2022-07-26] MEDS: HEPARIN SODIUM,PORCINE/PF 5,000 UNIT/0.5 ML SYRINGE SQ SCH ×2 (16:56→23:56)
[2022-07-26] MEDS: KETOROLAC 15 MG/ML 1 ML VIAL IVP SCH ×2 (17:40→23:56)
--- NOTE | 2022-07-26 18:38 | P.PN ---
Subjective Progress Note Date: 07/26/22 This is a 56-year-old female patient who presented with concerns of palpitations and shortness of breath. Patient has past medical history of ovarian cancer with metastatic disease in which he follows with oncology services out of [facility]. Patient reports she is she's had ongoing shortness of breath over the past 2 years which she has followed with pulmonary services. Patient recently had a PET scan ordered per pulmonary to address this issue. Patient reports that last night she had increased episodes of palpitations with wheezing prompting her to come to the ER for further evaluation. Chest x-ray completed showing cardiomegaly and mild pulmonary vascular congestion. Chest CTA completed showing pulmonary vascular congestion with moderate pericardial effusion correlate for cardiac tamponade no evidence of pulmonary embolism upper abdominal lymphadenopathy mediastinal lymph nodes the neck concerning for metastatic disease from patient's known ovarian cancer or new primary lung malignancy and/or both. Patient has a history of ovarian cancer in 2008 2013 with recurrence of ovarian cancer in August 2021. Patient has past medical history of bowel resection cholecystectomy and hysterectomy. 2-D echo has been ordered per ER team. Pulmonary, oncology and cardiothoracic surgery has been consulted. Current vital signs temp 98.7, heart rate 109, respiratory rate 18, blood pressure 114/69 pulse ox 96% on room air at this time patient is sitting comfortably in bed. Patient does have notable cough upon auscultation. Patient denies chest pain at this time. Patient denies nausea vomiting or diarrhea. Patient denies any urinary burning or frequency On 07/26/2022 patient was seen and examined on the telemetry floor she is alert and oriented 3 in no apparent distress, she underwent Subxiphoid pericardial window, 5 mL of bloody pericardial fluid was drained, and sent to pathology, patient to return to the telemetry floor she was doing well she denies any symptoms at this time. Objective - Vital Signs Vital signs: Vital Signs Temp 97.6 F 07/26/22 14:42 Pulse 106 H 07/26/22 16:08 Resp 16 07/26/22 16:08 BP 115/65 07/26/22 16:08 Pulse Ox 98 07/26/22 16:08 FiO2 21 07/26/22 09:05 Intake & Output 07/25/22 07/26/22 07/26/22 18:59 06:59 18:59 Intake Total 600 Output Total 500 Balance 100 Weight 95.708 kg Intake: IV 600 Oral 0 Output: Pleural Fluid 500 Other: Voiding Method Toilet Toilet Toilet # Voids 1 0 # Bowel Movements 1 - Exam In general patient is alert and oriented x 3 in no distress HEENT head normocephalic and atraumatic Neck is supple no JVD no goiter no lymphadenopathy no carotid bruit Chest examination is clear to auscultation no crackles no wheezing Cardiac exam reveals regular heart sounds S1 and S2 no gallops no murmurs Abdomen is soft nontender no organomegaly with normal bowel sounds Extremity exam reveals no edema no cyanosis or clubbing Neurological examination reveals no gross focal deficits - Labs CBC & Chem 7: 07/26/22 05:47 07/26/22 05:47 Labs: Abnormal Lab Results - Last 24 Hours (Table) 07/26/22 07/26/22 Range/Units 05:47 05:47 RBC 3.05 L (3.80-5.40) m/uL Hgb 10.5 L (11.4-16.0) gm/dL Hct 31.5 L (34.0-46.0) % MCV 103.1 H (80.0-100.0) fL RDW 16.4 H (11.5-15.5) % Sodium 133 L (137-145) mmol/L Chloride 96 L (98-107) mmol/L Glucose 165 H (74-99) mg/dL Assessment and Plan Assessment: 1. Palpitation and shortness of breath secondary to pericardial effusion, pat ient underwent Subxiphoid pericardial window today 2. History of ovarian cancer with metastatic. Patient reports follows with oncology services out of [facility] 3. History of anemia 4. Elevated d-dimer CTA was negative for PE At this time patient will be admitted Pulmonary, cardiothoracic surgery and oncology service is consulted 2-D echo ordered Repeat labs ordered
[2022-07-26] MEDS: predniSONE 10 MG TAB PO SCH (21:10)
[2022-07-27] MEDS ORDERED: HYDROcodone/APAP 5-325MG 1 EACH TAB PO PRN (02:25)
[2022-07-27] MEDS: KETOROLAC 15 MG/ML 1 ML VIAL IVP SCH ×2 (06:32→14:22)
[2022-07-27] MEDS: PANTOPRAZOLE 40 MG TABLET PO SCH (06:33)
[2022-07-27 07:24] LABS: Anisocytosis Slight; Basophils % (A) 0 %; Eosinophils % (A) 0 %; HCT 30.5 % (34.0-46.0); HGB 9.9 gm/dL (11.4-16.0); Lymphocytes # (A) 0.4 k/uL (1.0-4.8); Lymphocytes % (A) 7 %; MCH 33.8 pg (25.0-35.0); MCHC 32.6 g/dL (31.0-37.0); MCV 103.6 fL (80.0-100.0); Macrocytosis Moderate; Mean Platelet Volume 7.1; Monocytes # (A) 0.1 k/uL (0-1.0); Monocytes % (A) 2 %; Neutrophils # (A) 4.8 k/uL (1.3-7.7); Neutrophils % (A) 90 %; Platelet Count 167 k/uL (150-450); RBC 2.94 m/uL (3.80-5.40); RDW 16.3 % (11.5-15.5); WBC 5.3 k/uL (3.8-10.6)
[2022-07-27 07:37] LABS: ALT 20 U/L (4-34); AST 26 U/L (14-36); African American GFR (CKD) >90 (>60 ml/min/1.73 sqM); Albumin 3.5 g/dL (3.5-5.0); Alkaline Phosphatase 105 U/L (38-126); Anion Gap 7 mmol/L; Blood Urea Nitrogen 9 mg/dL (7-17); Calcium 8.5 mg/dL (8.4-10.2); Carbon Dioxide 26 mmol/L (22-30); Chloride 99 mmol/L (98-107); Glucose 185 mg/dL (74-99); Non-African American GFR(CKD) >90 (>60 ml/min/1.73 sqM); Potassium 4.9 mmol/L (3.5-5.1); Sodium 132 mmol/L (137-145); Total Bilirubin 0.6 mg/dL (0.2-1.3); Total Protein 6.5 g/dL (6.3-8.2)
--- NOTE | 2022-07-27 07:45 | XR ---
EXAMINATION TYPE: XR chest 1V portable DATE OF EXAM: 07/27/2022 6:41 AM COMPARISON: Chest radiographs from 07/26/2022 TECHNIQUE: XR chest 1V portable Portable AP radiograph of the chest. CLINICAL INDICATION:Female, 56 years old with history of Post Operative Pericardial window; FINDINGS: Lungs/Pleura: No pleural effusion or pneumothorax. Left basilar atelectasis. Chronic senescent protoc ol change. Pulmonary vascularity: Unremarkable. Heart/mediastinum: Cardiomediastinal silhouette is enlarged and stable. Status post pericardial wind ow. Musculoskeletal: No acute osseous pathology. Dorsal osteophytosis of the thoracic spine. IMPRESSION: Overall stable examination with stable and enlarged cardiomediastinal silhouette status post pericard ial window.
[2022-07-27] MEDS: LORATADINE-PSEUDOEPH 5-120 MG 1 EACH TAB.ER.12H PO SCH ×2 (07:54→20:19)
--- NOTE | 2022-07-27 08:35 | P.PN ---
Subjective Progress Note Date: 07/27/22 Principal diagnosis: Moderate pericardial effusion with no tamponade physiology, mediastinal, abdominal lymphadenopathy present on CT scan, FDG avid on PET scan, chronic cough secondary to previous Gemzar use, history of ovarian cancer status post total hysterectomy and BSO, covid infection in January 2022 POD #1 subxiphoid pericardial window with removal of 500 mL bloody fluid The patient was seen and examined this morning sitting up in a recliner in no acute distress. States pain is controlled with IV Toradol and is taking no oral pain medication. States she has been ambulatory to the bathroom without difficulty. Remains in sinus rhythm to sinus tach with heart rate in the high 90s to low 100s. Blood pressure stable. Mediastinal chest tube present to [facility] with 250 mL thin serosanguineous drainage since surgery. No other new concerns. Objective - Vital Signs Vital signs: Vital Signs Temp 98 F 07/27/22 04:00 Pulse 92 07/27/22 04:00 Resp 18 07/27/22 04:00 BP 98/63 07/27/22 04:00 Pulse Ox 96 07/27/22 04:00 FiO2 21 07/26/22 09:05 Intake & Output 07/26/22 07/27/22 07/27/22 18:59 06:59 18:59 Intake Total 600 360 Output Total 500 70 Balance 100 -70 360 Intake: IV 600 Oral 0 360 Output: Chest Tube Drainage 70 Chest Tube Mediastinal 70 Pleural Fluid 500 Other: Voiding Method Toilet Toilet # Voids 0 2 - Exam CONSTITUTIONAL: Appears comfortable, cooperative, no acute distress RESPIRATORY: Lungs sounds diminished bilaterally with expiratory wheezes present, right greater than left. Respirations even, nonlabored. Currently on 2 L nasal cannula with oxygen saturation 96%. Able to achieve 1000 mL on incentive spirometry. Strong cough. CARDIOVASCULAR: S1, S2 present. Regular rate and rhythm, sinus rhythm to sinus tach on telemetry. Palpable peripheral pulses bilaterally. No edema present. No calf pain or tenderness noted GASTROINTESTINAL: Abdomen soft, nontender, nondistended. Active bowel sounds present 4 quadrants. Tolerating diet. Positive bowel movement. GENITOURINARY: Continues to void INTEGUMENTARY: Skin is warm and dry with evidence of good perfusion NEUROLOGIC: Cranial nerves II through XII intact MUSKULOSKELETAL: Able to move all extremities, strength equal bilaterally, gait normal PSYCHIATRIC: Alert and oriented to person place and time, appropriate affect, intact judgment and insight INVASIVE LINES AND TUBES: Mediastinal chest tube present to waterseal, no air leaks present, 40 mL serosanguineous drainage overnight, 250 mL since surgery - Allied health notes Allied health notes reviewed: nursing - Labs CBC & Chem 7: 07/27/22 06:15 07/27/22 06:15 Labs: Abnormal Lab Results - Last 24 Hours (Table) 07/26/22 07/27/22 07/27/22 Range/Units 05:47 06:15 06:15 RBC 2.94 L (3.80-5.40) m/uL Hgb 9.9 L (11.4-16.0) gm/dL Hct 30.5 L (34.0-46.0) % MCV 103.6 H (80.0-100.0) fL RDW 16.3 H (11.5-15.5) % Lymphocytes # 0.4 L (1.0-4.8) k/uL Sodium 132 L (137-145) mmol/L Glucose 185 H (74-99) mg/dL CA 125 Antigen 502.0 H (0.0-30.1) U/mL - Imaging and Cardiology Chest x-ray: report reviewed, image reviewed Assessment and Plan Assessment: 1. Moderate pericardial effusion with no tamponade physiology, status post pericardial window 2. Palpitations/chest pain/shortness of breath, secondary to above 3. Mediastinal, abdominal lymphadenopathy present on CT scan, FDG avid on PET scan, concern for metastatic ovarian cancer versus new primary lung malignancy 4. Chronic cough secondary to previous Gemzar use 5. History of ovarian cancer status post total hysterectomy and BSO, current CA 125 502 6. Covid infection in January 2022 Plan: 1. Will continue mediastinal chest tube for another 24 hours, will monitor chest tube output 2. Wean O2 as tolerated, encourage incentive spirometry use 10 times every hour while awake. Bronchodilators, steroids per pulmonology 3. Increase activity, ambulate as tolerated 4. Pain control per current medication regimen 5. Medical management other comorbidities per internal medicine service
[2022-07-27] MEDS ORDERED: FLUCONAZOLE 150 MG TAB PO SCH (09:00)
[2022-07-27] MEDS: HEPARIN SODIUM,PORCINE/PF 5,000 UNIT/0.5 ML SYRINGE SQ SCH ×3 (09:09→23:53)
[2022-07-27] MEDS: MAGNESIUM OXIDE 400 MG TAB PO SCH (09:09)
[2022-07-27] MEDS: predniSONE 10 MG TAB PO SCH (09:09)
[2022-07-27] MEDS: SENNOSIDES-DOCUSATE SODIUM 1 EACH TAB PO SCH ×2 (09:09→20:29)
[2022-07-27] MEDS: POTASSIUM CHLORIDE ER 20 MEQ TAB.ER PO SCH ×2 (09:10→20:29)
[2022-07-27] MEDS: ZEJULA PO SCH (09:10)
--- NOTE | 2022-07-27 10:31 | P.PN ---
Subjective Progress Note Date: 07/27/22 Principal diagnosis: pericardial effusion, metastatic ovarian cancer Upon visit today, patient is resting comfortably in bedside chair. at bedside. S/p pericardial window. Patient reports feeling overall well. Improvement in shortness of breath. No other reported complaints at this time Objective - Vital Signs Vital signs: Vital Signs Temp 97.8 F 07/27/22 09:13 Pulse 103 H 07/27/22 09:13 Resp 16 07/27/22 09:13 BP 113/57 07/27/22 09:13 Pulse Ox 93 L 07/27/22 09:13 FiO2 21 07/26/22 09:05 Intake & Output 07/26/22 07/27/22 07/27/22 18:59 06:59 18:59 Intake Total 600 360 Output Total 500 70 Balance 100 -70 360 Intake: IV 600 Oral 0 360 Output: Chest Tube Drainage 70 Chest Tube Mediastinal 70 Pleural Fluid 500 Other: Voiding Method Toilet Toilet # Voids 0 2 - Constitutional General appearance: Present: average body habitus, no acute distress - EENT ENT: Present: hearing grossly normal - Respiratory Details: breathing is even and unlabored - Cardiovascular Details: skin warm and dry - Integumentary Integumentary: Present: normal - Neurologic Neurologic: Present: CNII-XII intact - Musculoskeletal Musculoskeletal: Present: strength equal bilaterally - Psychiatric Psychiatric: Present: A&O x's 3, appropriate affect, intact judgment & insight - Labs CBC & Chem 7: 07/27/22 06:15 07/27/22 06:15 Labs: Abnormal Lab Results - Last 24 Hours (Table) 07/26/22 07/27/22 07/27/22 Range/Units 05:47 06:15 06:15 RBC 2.94 L (3.80-5.40) m/uL Hgb 9.9 L (11.4-16.0) gm/dL Hct 30.5 L (34.0-46.0) % MCV 103.6 H (80.0-100.0) fL RDW 16.3 H (11.5-15.5) % Lymphocytes # 0.4 L (1.0-4.8) k/uL Sodium 132 L (137-145) mmol/L Glucose 185 H (74-99) mg/dL CA 125 Antigen 502.0 H (0.0-30.1) U/mL Assessment and Plan (1) Pericardial effusion Current Visit: Yes Status: Acute Priority: High Code(s): I31.39 - OTHER PE RICARDIAL EFFUSION (NONINFLAMMATORY) SNOMED Code(s): 980635454 (2) Ovarian cancer Current Visit: Yes Status: Acute Priority: High Code(s): C56.9 - MALIGNANT NEOPLASM OF UNSPECIFIED OVARY SNOMED Code(s): 627761144 Plan: Pericardial effusion: -CTA chest showed vascular congestion with moderate pericardial effusion. No pulmonary embolism noted, and increased abdominal and mediastinal lympha denopathy. Echo showed normal left ventricular function 5560 %, and moderate pericardial effusion. -Oxygen saturation 96% on room air. Patient reports improvement in breathing today -S/p pericardial window, with pericardial drain in place. Approx 5ml bloody fluid removed, palpable pericardial implants noted, concerning for metastasis. Biopsy and cytology pending -Repeat ECHO ordered -Cardiology and cardiothoracic team following Metastatic ovarian cancer: -She currently is following with Dr. Thibodeaux at [facility] and completed 7 cycles of Doxil/carbo in February 2022, and started maintenance Zejula 05/2022. -CT CAP from 07/12/22 showed scattered abdominal lymphadenopathy and new right middle lobe 14 mm nodule with soft tissue around the right pulmonary hilum and extends along right trachea. PET scan on 07/23/2022 showed pulmonary mediastinal lymphadenopathy, lower neck lymphadenopathy, intra-abdominal lymphadenopathy including mesentery, gastrohepatic ligament and gisele hepatis. Findings likely relating to ovarian cancer, as pulmonary nodule demonstrated FDG activity below background levels. -Will continue daily Zejula and plan for f/u with Dr. Thibodeaux for treatment recommendations -CA-125 elevated, 502 Dr. attests: I have performed H&P and developed impression and plan of care for patient, discussed with dictator. I agree with dictated note, documented as a scribe
[2022-07-27] MEDS ORDERED: ACETAMINOPHEN TAB 325 MG TAB PO PRN (13:31)
--- NOTE | 2022-07-27 14:01 | P.PN ---
Subjective Progress Note Date: 07/27/22 56-year-old female patient coming into the emergency because of shortness of breath. The patient has history of metastatic ovarian cancer. She was originally diagnosed in June 2008. She underwent a total abdominal hysterectomy and bilateral salpingo-oophorectomy. She also had lymph node dissection and she will debulking. Subsequently she received systemic chemotherapy with carboplatinum and Taxol. Back in 2013, she was found to have pelvic recurrence and elevation and the CA-125 level. She underwent cytoreduction with extensive laparotomy lysis of adhesions sigmoid resection and primary reanastomosis. She completed 6 cycles of systemic chemotherapy with carboplatin. Subsequently 2018, a colonoscopy guided biopsy of a 4 cm rectal mass showed tumor recurrence. She was restarted again on systemic chemotherapy using carboplatin and. At the later stage, the patient was placed on Rucaparib , no subsequent follow-up shows progressive vitamin C 125 level and computed tomography scan demonstrated evidence of disease recurrence with new pulmonary nodules and increasing lymphadenopathy within the mediastinum and abdomen. In 2019, she was started on carboplatinum and Gemzar. I'm not sure of any ongoing treatment follow-up following that. The patient came into the emergency department yesterday because of worsening shortness of breath. She has also palpitations. She's been having progressive increasing dyspnea over the past 2 years at least. The recent PET/CT showed evidence of pulmonary mediastinal lymphadenopathy, lower neck lymphadenopathy current abnormal lymphadenopathy is sitting with metastatic disease. The patient also had abnormal FDG activity in the lung and a pulmonary nodule measuring 11 mm in size. Based on worsening shortness of breath, the patient had a CTA of the chest yesterday that showed no evidence of any pulmonary embolism. There was lymphadenopathy as discussed in addition to a moderate- sized pericardial effusion. The patient is currently on room air oxygen. Pulse ox 92% pH is tachycardic with a heart rate of 109. BP is 114/69. She is afebrile. Abdomen is a cause of 9.4 with a hemoglobin 11.1 and a platelet count of 209. Normal coagulation profile. D-dimer is at 1.46. BUN is about a creatinine of 0.8 and sodium level is at 135. Reevaluated today on 07/26/2022 patient remains on the cardiac floor, scheduled to undergo pericardial window today. In the meantime the patient seems to be comfortable, she is on 3 L nasal cannula with O2 saturation of 90-95%. Today I had a chance to go over the CT of the chest and over the PET scan which was done recently on this patient, and explained to the patient that the findings are m ostly findings consistent with metastatic ovarian cancer. Nonetheless the patient is scheduled to undergo pericardial window today, and this is mostly for moderate-sized pericardial effusion noted and apparently has progressed and sized. For her chronic cough which I was felt to be chemotherapy related, I recommended prednisone and this is to be tapered on outpatient basis. Recently the patient responded quite well to relatively high-dose of prednisone cough has completely resolved, but as the dose of the prednisone came down, the cough came back. The patient is seen today in 07/27/2022 in follow-up on the selective care unit. She is currently up ambulating in her room. Awake and alert in no acute distress. She did undergo pericardial window and biopsy of the pericardium for pathology and pericardial fluid sent for cytology yesterday. 500 ML's of bloody pericardial fluid was drained. Pericardial drain remains in place. Today's chest x-ray reveals stable with enlarged cardiomediastinal silhouette status post pericardial window. White count 5.3. Hemoglobin 9.9. Platelets 167. Sodium 132. Potassium 4.9. Bicarb 26. BUN 9. Creatinine 0.75. CA 125 is 502. Currently on antibiotics in the form of cefazolin. Heparin for DVT prophylaxis. Remains on Diflucan. Remains on a prednisone taper. Maintaining good O2 saturations in the 90s on room air. Afebrile. Hemodynamically stable. Objective - Vital Signs Vital signs: Vital Signs Temp 97.8 F 07/27/22 11:31 Pulse 101 H 07/27/22 11:31 Resp 16 07/27/22 11:31 BP 119/59 07/27/22 11:31 Pulse Ox 93 L 07/27/22 11:31 FiO2 21 07/26/22 09:05 Intake & Output 07/26/22 07/27/22 07/27/22 18:59 06:59 18:59 Intake Total 600 1240 Output Total 500 70 0 Balance 100 -70 1240 Intake: IV 600 Oral 0 1240 Output: Chest Tube Drainage 70 0 Chest Tube Mediastinal 70 0 Pleural Fluid 500 Other: Voiding Method Toilet Toilet Toilet # Voids 0 2 - Exam GENERAL EXAM: Alert, active, very pleasant 56-year-old female, on room air, comfortable in no apparent distress. HEAD: Normocephalic. EYES: Normal reaction of pupils, equal size. NOSE: Clear with pink turbinates. THROAT: No erythema or exudates. NECK: No masses, no JVD. Unable to clearly palpate lymph nodes. CHEST: No chest wall deformity. Pericardial drain remains secured in placed to Pleur-evac. LUNGS: Equal air entry with no crackles, wheeze, rhonchi or dullness. CVS: S1 and S2 normal with no audible murmur, regular rhythm. ABDOMEN: No hepatosplenomegaly, normal bowel sounds, no guarding or rigidity. SPINE: No scoliosis or deformity SKIN: No rashes CENTRAL NERVOUS SYSTEM: No focal deficits, tone is normal in all 4 extremities. EXTREMITIES: There is no peripheral edema. No clubbing, no cyanosis. Peripheral pulses are intact. - Labs CBC & Chem 7: 07/27/22 06:15 07/27/22 06:15 Labs: Abnormal Lab Results - Last 24 Hours (Table) 07/26/22 07/27/22 07/27/22 Range/Units 05:47 06:15 06:15 RBC 2.94 L (3.80-5.40) m/uL Hgb 9.9 L (11.4-16.0) gm/dL Hct 30.5 L (34.0-46.0) % MCV 103.6 H (80.0-100.0) fL RDW 16.3 H (11.5-15.5) % Lymphocytes # 0.4 L (1.0-4.8) k/uL Sodium 132 L (137-145) mmol/L Glucose 185 H (74-99) mg/dL CA 125 Antigen 502.0 H (0.0-30.1) U/mL Assessment and Plan Assessment: Shortness of breath secondary to large pericardial effusion, likely malignant, pericardial window placed yesterday, pathology pending Metastatic ovarian cancer initially diagnosed in 2008 and had undergone several rounds of treatment. CA 125 is at 502 Metastatic pulmonary nodule Extensive mediastinal and intra-abdominal lymphadenopathy Chronic anemia Gemzar induced pneumonitis/cough Thank: The patient was seen and evaluated Chest x-ray, labs and medications reviewed Chest tube remains in place Pathology pending Less short of breath today Remains on prednisone We'll continue to follow I have personally seen and examined the patient, performed the documentation and the assessment and plan as written. Number of minutes spent on the visit: 10.
[2022-07-27] MEDS: IBUPROFEN 600 MG TAB PO PRN ×2 (14:21→20:27)
--- NOTE | 2022-07-27 16:53 | P.PN ---
Subjective Progress Note Date: 07/27/22 This is a 56-year-old female patient who presented with concerns of palpitations and shortness of breath. Patient has past medical history of ovarian cancer with metastatic disease in which he follows with oncology services out of [facility]. Patient reports she is she's had ongoing shortness of breath over the past 2 years which she has followed with pulmonary services. Patient recently had a PET scan ordered per pulmonary to address this issue. Patient reports that last night she had increased episodes of palpitations with wheezing prompting her to come to the ER for further evaluation. Chest x-ray completed showing cardiomegaly and mild pulmonary vascular congestion. Chest CTA completed showing pulmonary vascular congestion with moderate pericardial effusion correlate for cardiac tamponade no evidence of pulmonary embolism upper abdominal lymphadenopathy mediastinal lymph nodes the neck concerning for metastatic disease from patient's known ovarian cancer or new primary lung malignancy and/or both. Patient has a history of ovarian cancer in 2008 2013 with recurrence of ovarian cancer in August 2021. Patient has past medical history of bowel resection cholecystectomy and hysterectomy. 2-D echo has been ordered per ER team. Pulmonary, oncology and cardiothoracic surgery has been consulted. Current vital signs temp 98.7, heart rate 109, respiratory rate 18, blood pressure 114/69 pulse ox 96% on room air at this time patient is sitting comfortably in bed. Patient does have notable cough upon auscultation. Patient denies chest pain at this time. Patient denies nausea vomiting or diarrhea. Patient denies any urinary burning or frequency On 07/26/2022 patient was seen and examined on the telemetry floor she is alert and oriented 3 in no apparent distress, she underwent Subxiphoid pericardial window, 5 mL of bloody pericardial fluid was drained, and sent to pathology, patient to return to the telemetry floor she was doing well she denies any symptoms at this time. Objective - Vital Signs Vital signs: Vital Signs Temp 97.8 F 07/27/22 09:13 Pulse 103 H 07/27/22 09:13 Resp 16 07/27/22 09:13 BP 113/57 07/27/22 09:13 Pulse Ox 93 L 07/27/22 09:13 FiO2 21 07/26/22 09:05 Intake & Output 07/26/22 07/27/22 07/27/22 18:59 06:59 18:59 Intake Total 600 360 Output Total 500 70 Balance 100 -70 360 Intake: IV 600 Oral 0 360 Output: Chest Tube Drainage 70 Chest Tube Mediastinal 70 Pleural Fluid 500 Other: Voiding Method Toilet Toilet # Voids 0 2 - Exam In general patient is alert and oriented x 3 in no distress HEENT head normocephalic and atraumatic Neck is supple no JVD no goiter no lymphadenopathy no carotid bruit Chest examination is clear to auscultation no crackles no wheezing Cardiac exam reveals regular heart sounds S1 and S2 no gallops no murmurs Abdomen is soft nontender no organomegaly with normal bowel sounds Extremity exam reveals no edema no cyanosis or clubbing Neurological examination reveals no gross focal deficits - Labs CBC & Chem 7: 07/27/22 06:15 07/27/22 06:15 Labs: Abnormal Lab Results - Last 24 Hours (Table) 07/26/22 07/27/22 07/27/22 Range/Units 05:47 06:15 06:15 RBC 2.94 L (3.80-5.40) m/uL Hgb 9.9 L (11.4-16.0) gm/dL Hct 30.5 L (34.0-46.0) % MCV 103.6 H (80.0-100.0) fL RDW 16.3 H (11.5-15.5) % Lymphocytes # 0.4 L (1.0-4.8) k/uL Sodium 132 L (137-145) mmol/L Glucose 185 H (74-99) mg/dL CA 125 Antigen 502.0 H (0.0-30.1) U/mL Assessment and Plan Assessment: 1. Palpitation and shortness of breath secondary to pericardial effusion, patie nt underwent Subxiphoid pericardial window today 2. History of ovarian cancer with metastatic. Patient reports follows with oncology services out of [facility] 3. History of anemia 4. Elevated d-dimer CTA was negative for PE At this time patient will be admitted Pulmonary, cardiothoracic surgery and oncology service is consulted 2-D echo ordered Repeat labs ordered
[2022-07-27] MEDS ORDERED: diphenhydrAMINE 25 MG CAP PO PRN (21:07)
[2022-07-28] MEDS: PANTOPRAZOLE 40 MG TABLET PO SCH (06:20)
[2022-07-28] MEDS: IBUPROFEN 600 MG TAB PO PRN ×2 (06:20→12:17)
--- NOTE | 2022-07-28 06:52 | XR ---
EXAMINATION TYPE: XR chest 1V portable DATE OF EXAM: 07/28/2022 CLINICAL HISTORY: Difficulty breathing progress study. Post pericardial window. TECHNIQUE: Single AP portable upright view of the chest is obtained. COMPARISON: Chest x-ray from one day earlier and older studies. FINDINGS: Overlying EKG leads along with inferior pericardial drainage catheter are redemonstrated. Persistent left basilar opacity though some improved aeration. Right lung remains clear. Background c hronic emphysematous change redemonstrated. Cardiac silhouette size stable and mildly enlarged. Lamar us structures are intact. IMPRESSION: Mild cardiomegaly with inferior pericardial drainage catheter redemonstrated. Persistent but improving left lower lung acute infiltrate and/or atelectasis.
[2022-07-28] MEDS: SENNOSIDES-DOCUSATE SODIUM 1 EACH TAB PO SCH (09:05)
[2022-07-28] MEDS: LORATADINE-PSEUDOEPH 5-120 MG 1 EACH TAB.ER.12H PO SCH (09:05)
[2022-07-28] MEDS: HEPARIN SODIUM,PORCINE/PF 5,000 UNIT/0.5 ML SYRINGE SQ SCH (09:05)
[2022-07-28] MEDS: MAGNESIUM OXIDE 400 MG TAB PO SCH (09:05)
[2022-07-28] MEDS: POTASSIUM CHLORIDE ER 20 MEQ TAB.ER PO SCH ×2 (09:05→09:13)
[2022-07-28] MEDS: predniSONE 10 MG TAB PO SCH (09:05)
[2022-07-28] MEDS: ZEJULA PO SCH (09:06)
--- NOTE | 2022-07-28 09:08 | P.PN ---
Subjective Progress Note Date: 07/28/22 Principal diagnosis: Moderate pericardial effusion with no tamponade physiology, mediastinal, abdominal lymphadenopathy present on CT scan, FDG avid on PET scan, chronic cough secondary to previous Gemzar use, history of ovarian cancer status post total hysterectomy and BSO, covid infection in January 2022 POD #2 subxiphoid pericardial window with removal of 500 mL bloody fluid. The patient was seen and examined at her bedside on the cardiac stepdown unit today 07/28/2022. Currently she is lying in bed, is awake, alert, oriented 3 and is in no acute apparent distress. Denies any complaints of shortness of breath at this time, and reports that her wheezing feels somewhat improved since her pericardial window procedure. She denies any complaints of pain at this ti me. Reports she has been up ambulating in her room independently without difficulty. Oxygen saturations are 94% on room air and she is achieving 1000 mL on her incentive spirometry. Subxiphoid chest tube remains in place to water seal. No air leak is present. 50 mL of thin serosanguineous drainage in the last 24 hours. Chest x-ray reviewed. No new concerns. Objective - Vital Signs Vital signs: Vital Signs Temp 98.1 F 07/28/22 04:00 Pulse 101 H 07/28/22 04:00 Resp 16 07/28/22 04:00 BP 108/56 07/28/22 04:00 Pulse Ox 92 L 07/28/22 04:00 FiO2 21 07/26/22 09:05 Intake & Output 07/27/22 07/28/22 07/28/22 18:59 06:59 18:59 Intake Total 1420 Output Total 25 30 Balance 1395 -30 Intake: Oral 1420 Output: Chest Tube Drainage 0 30 Chest Tube Mediastinal 0 30 Drainage 25 Medial 25 Other: Voiding Method Toilet Toilet # Voids 2 - Exam CONSTITUTIONAL: Appears comfortable, cooperative, no acute distress. RESPIRATORY: Lungs sounds diminished bilaterally with faint expiratory wheezes present. Respirations are symmetrical, nonlabored. Currently on room air with oxygen saturation 94%. Able to achieve 1000 mL on her incentive spirometry. Strong frequent dry nonproductive cough. CARDIOVASCULAR: S1, S2 present. Regular rate and tachycardic rhythm, sinus tachycardia rhythm on remote telemetry, heart rate 108 BPM. Palpable peripheral pulses bilaterally. No edema present. No calf pain or tenderness noted. GASTROINTESTINAL: Abdomen soft, nontender, nondistended. Active bowel sounds present 4 quadrants. Tolerating diet. Passing flatus. Bowel movement yesterday 07/27/2022. GENITOURINARY: Continues to void. INTEGUMENTARY: Skin is warm and dry with no clubbing or cyanosis present. NEUROLOGIC: Cranial nerves II through XII intact, no focal deficits. MUSKULOSKELETAL: Able to move all extremities, strength equal bilaterally, gait normal. PSYCHIATRIC: Alert and oriented to person place and time, appropriate affect, intact judgment and insight. INVASIVE LINES AND TUBES: Subxiphoid chest tube present to waterseal, no air leaks present, 50 mL of thin serosanguineous in the last 24 hours. - Allied health notes Allied health notes reviewed: nursing - Labs CBC & Chem 7: 07/27/22 06:15 07/27/22 06:15 - Imaging and Cardiology Chest x-ray: report reviewed, image reviewed Assessment and Plan Assessment: 1. Moderate pericardial effusion with no tamponade physiology, status post pericardial window 2. Palpitations/chest pain/shortness of breath, secondary to above 3. Mediastinal, abdominal lymphadenopathy present on CT scan, FDG avid on PET scan, concern for metastatic ovarian cancer versus new primary lung malignancy 4. Chronic dry cough secondary to previous Gemzar use 5. History of ovarian cancer status post total hysterectomy and BSO, current CA 125 502 6. Covid-19 infection in January 2022 Plan: 1. Will remove her subxiphoid chest tube. 2. Encourage incentive spirometry use 10 times every hour while awake. Bronchodilators, steroids per pulmonology management. 3. Increase activity, ambulate as tolerated. 4. Pain control per current medication regimen. 5. Cytology and pathology results remain pending, continue to follow results. 6. Okay to be discharged home per the cardiothoracic surgery standpoint when okay with primary care and other consultants. 7. Medical management other comorbidities per internal medicine service. 8. More recommendations to follow based on patient's clinical course. Time with Patient: Greater than 30
[2022-07-28 09:15] VITALS: BP 125/61; PULSE 98; RESP 18; TEMP 97.2
[2022-07-28 09:29] LABS: ALT 18 U/L (4-34); AST 25 U/L (14-36); African American GFR (CKD) >90 (>60 ml/min/1.73 sqM); Albumin 3.4 g/dL (3.5-5.0); Alkaline Phosphatase 104 U/L (38-126); Anion Gap 4 mmol/L; Blood Urea Nitrogen 11 mg/dL (7-17); Calcium 8.3 mg/dL (8.4-10.2); Carbon Dioxide 30 mmol/L (22-30); Chloride 101 mmol/L (98-107); Glucose 121 mg/dL (74-99); Magnesium 1.9 mg/dL (1.6-2.3); Non-African American GFR(CKD) 86 (>60 ml/min/1.73 sqM); Sodium 135 mmol/L (137-145); Total Bilirubin 0.5 mg/dL (0.2-1.3); Total Protein 6.2 g/dL (6.3-8.2)
[2022-07-28 09:33] LABS: Anisocytosis Slight; Basophils % (A) 0 %; Eosinophils # (A) 0.1 k/uL (0-0.7); Eosinophils % (A) 1 %; HCT 28.4 % (34.0-46.0); HGB 9.3 gm/dL (11.4-16.0); Lymphocytes # (A) 1.8 k/uL (1.0-4.8); Lymphocytes % (A) 27 %; MCH 33.9 pg (25.0-35.0); MCHC 32.8 g/dL (31.0-37.0); MCV 103.5 fL (80.0-100.0); Macrocytosis Moderate; Mean Platelet Volume 7.7; Monocytes # (A) 0.2 k/uL (0-1.0); Monocytes % (A) 3 %; Neutrophils # (A) 4.4 k/uL (1.3-7.7); Neutrophils % (A) 66 %; Platelet Count 188 k/uL (150-450); Poikilocytosis Slight; RBC 2.74 m/uL (3.80-5.40); RDW 16.8 % (11.5-15.5); WBC 6.6 k/uL (3.8-10.6)
--- NOTE | 2022-07-28 11:29 | P.DS ---
Providers Date of admission: 07/25/22 10:58 Expected date of discharge: 07/28/22 Attending physician: Narciso Palomo Consults: 07/25/22 10:58 Consult Physician Urgent Consulting Provider: Kt Love Consult Reason/Comments: History of ovarian cancer Do you want consulting provider notified?: Yes Consult Physician Urgent Consulting Provider: Sergio Farfan Consult Reason/Comments: Dyspnea Do you want consulting provider notified?: Yes Consult Physician Urgent Consulting Provider: Adriane Rankin Consult Reason/Comments: Pericardial effusion Do you want consulting provider notified?: Yes Primary care physician: Flower Aguilar Hospital Course: Discharge diagnosis 1. Palpitation and shortness of breath secondary to pericardial effusion, patient underwent Subxiphoid pericardial window today. Chest tube was removed cleared for discharge from cardiothoracic surgery 2. History of ovarian cancer with metastatic. Patient reports follows with oncology services out of [facility] 3. History of anemia 4. Elevated d-dimer CTA was negative for PE Hospital course This is a 56-year-old female patient who presented with concerns of palpitations and shortness of breath. Patient has past medical history of ovarian cancer with metastatic disease in which he follows with oncology services out of [facility]. Patient reports she is she's had ongoing shortness of breath over the past 2 years which she has followed with pulmonary services. Patient recently had a PET scan ordered per pulmonary to address this issue. Patient reports that last night she had increased episodes of palpitations with wheezing prompting her to come to the ER for further evaluation. Chest x-ray completed showing cardiomegaly and mild pulmonary vascular congestion. Chest CTA completed showing pulmonary vascular congestion with moderate pericardial effusion correlate for cardiac tamponade no evidence of pulmonary embolism upper abdominal lymphadenopathy mediastinal lymph nodes the neck concerning for metastatic disease from patient's known ovarian cancer or new primary lung malignancy and/or both. Patient has a history of ovarian cancer in 2008 2013 with recurrence of ovarian cancer in August 2021. Patient has past medical history of bowel resection cholecystectomy and hysterectomy. 2-D echo has been ordered per ER team. Pulmonary, oncology and cardiothoracic surgery has been consulted. Current vital signs temp 98.7, heart rate 109, respiratory rate 18, blood pressure 114/69 pulse ox 96% on room air at this time patient is sitting comfortably in bed. Patient does have notable cough upon auscultation. Patient denies chest pain at this time. Patient denies nausea vomiting or diarrhea. Patient denies any urinary burning or frequency On 07/26/2022 patient was seen and examined on the telemetry floor she is alert and oriented 3 in no apparent distress, she underwent Subxiphoid pericardial window, 5 mL of bloody pericardial fluid was drained, and sent to pathology, patient to return to the telemetry floor she was doing well she denies any symptoms at this time. On 07/27/2022 patient was seen and examined on the telemetry floor she is alert and oriented 3 in no apparent distress she underwent pericardial window yesterday, she is followed by pulmonary and thoracic surgery, she denies any complaints at this time there is no fever or chills no headache or dizziness no chest pain no shortness of breath no cough no nausea or vomiting no abdominal pain no diarrhea and no urinary symptoms On 07/28/2022 patient is alert and oriented 3. Cardiothoracic surgery nurse practitioner bedside removing chest tube. Cleared for discharge. Also discussed case with pulmonary team patient may be discharged home written directions for prednisone taper given to patient prednisone 10 mg tablet prescribed patient to take as instructed per pulmonary. Patient to follow-up with oncology team at a [facility]. At this time patient denies chest pain. Patient denies nausea vomiting or diarrhea. Patient denies any urinary burning or frequency Patient Condition at Discharge: Stable Plan - Discharge Summary New Discharge Prescriptions: New Fluconazole [Diflucan] 150 mg PO Q72H #2 tab predniSONE 10 mg PO DAILY 30 Days #75 tab Continue Niraparib Tosylate [Zejula] 200 mg PO DAILY Magnesium Oxide [Mag-Ox] 400 mg PO DAILY Cetirizine HCl/Pseudoephedrine [Zyrtec-D Tablet] 1 tab PO BID Potassium Chloride ER [K-Dur 20] 20 meq PO BID Discharge Medication List Cetirizine HCl/Pseudoephedrine [Zyrtec-D Tablet] 1 tab PO BID 07/25/22 [History] Magnesium Oxide [Mag-Ox] 400 mg PO DAILY 07/25/22 [History] Niraparib Tosylate [Zejula] 200 mg PO DAILY 07/25/22 [History] Potassium Chloride ER [K-Dur 20] 20 meq PO BID 07/25/22 [History] Fluconazole [Diflucan] 150 mg PO Q72H #2 tab 07/28/22 [Rx] predniSONE 10 mg PO DAILY 30 Days #75 tab 07/28/22 [Rx] Follow up Appointment(s)/Referral(s): Marilee Hansen MD [STAFF PHYSICIAN] - 1 Week Flower Aguilar MD [Primary Care Provider] - 1-2 days Activity/Diet/Wound Care/Special Instructions: Activity as tolerated Diet heart healthy Patient to follow-up with her oncologist out of [facility] Discharge Disposition: HOME SELF-CARE
== END 2022-07-28 12:45 | disposition home or self-care (01) | DRG 164 ==
LOC: EC 07:15 → 3SCARD 10:58
PROVIDERS: ADMIT Internal Medicine; ATTEND Internal Medicine
PROC: 02BN0ZX Excision of Pericardium, Open Approach, Diagnostic (ICD-10-PCS; 2022-07-26)
PROC: 0W9D00Z Drainage of Pericardial Cavity with Drainage Device, Open Approach (ICD-10-PCS; principal; 2022-07-26 07:30)
DX: C78.01 Secondary malignant neoplasm of right lung (principal); I31.31 Malignant pericardial effusion in diseases classified elsewhere; I11.9 Hypertensive heart disease without heart failure; I95.9 Hypotension, unspecified; D63.0 Anemia in neoplastic disease; I08.1 Rheumatic disorders of both mitral and tricuspid valves; E87.6 Hypokalemia; E83.42 Hypomagnesemia; T45.1X5A Adverse effect of antineoplastic and immunosuppressive drugs, initial encounter; Z20.822 Contact with and (suspected) exposure to COVID-19; R59.0 Localized enlarged lymph nodes; R05.3 Chronic cough; Z85.43 Personal history of malignant neoplasm of ovary; Z92.21 Personal history of antineoplastic chemotherapy; Z88.8 Allergy status to other drugs, medicaments and biological substances; Z90.710 Acquired absence of both cervix and uterus; Z86.16 Personal history of COVID-19
CPT/HCPCS: 36415; 71045; 71046; 71275; 80053; 83735; 83880; 84484; 85025; 85379; 85610; 85730; 86304; 86850; 86900; 86901; 87636; 88108; 88305; 88341; 88342; 93005; 93306; 94760; 96365; 99291

== ENCOUNTER → 2022-09-30 | Outpatient (CLI) | payer BC ==
--- NOTE | 2022-09-30 22:26 | CT ---
EXAMINATION TYPE: CT ChestAbdPelvis w con DATE OF EXAM: 09/30/2022 INDICATION: f/u ovarian ca COMPARISON: PET CT 07/23/2022 CT DLP: 1275.8 mGycm CONTRAST: Performed with Oral Contrast and with IV Contrast, patient injected with 100 mL of Isovue 300. TECHNIQUE: Axial images at 5 mm thick sections. Reconstructed images in the coronal plane. Delayed images through the kidneys. FINDINGS: CT CHEST: Portion of the thyroid visualized is normal. Some minimal compressive atelectasis in the dependent lung bases. There is thickening through the medial right middle lobe. This appears to have extension into the med iastinum. There is encasement of the right upper lobe pulmonary artery. Right middle lobe pulmonary a rtery and soft tissue adjacent. Enlarged mediastinal adenopathy would be difficult to separate from mass. Right hilar adenopathy or m ass may be present. This may be encasing the right lower lobe and right middle lobe bronchi. The ascending aorta diameter at the level of the main pulmonary artery is 3.4 cm. The main pulmonary artery diameter at the bifurcation is 3.0 cm. Mild pericardial effusion is present. CT ABDOMEN: There may be some minimal mesenteric adenopathy present. Liver: Normal Spleen: Normal Pancreas: Normal Adrenal glands: The adrenal glands are normal. Gallbladder: Not identified Kidneys: No masses are evident. No hydronephrosis is present. No cysts are present. Delayed images were obtained through the kidneys, which remain unremarkable. Aorta: Normal there may be some periaortic and retrocaval adenopathy. Discrete enlarged lymph nodes a re not identified. Inferior vena cava: Normal. CT PELVIS: Loops of bowel within the abdomen and pelvis are normal. There are loops of bowel which are incom pletely distended or lack oral contrast limiting their evaluation. Appendix: Normal as visualized Urinary bladder: Decompressed limiting evaluation. Genitourinary structures: Uterus and ovaries are not identified. Osseous structures: No suspicious lytic or sclerotic lesions evident. IMPRESSIONS: 1. Improving mild mesenteric lymphadenopathy mild periaortic and retrocaval matted adenopathy. 2. Right medial lung field density. Correlate for atelectasis. Recurrent mass should be considered. 3. Right hilar adenopathy versus mass encasing right middle and lower lobe bronchi and vessels. 4. Diminished pericardial effusion
== END | disposition home or self-care (01) ==
LOC: RADCTMAIN 09:39
PROVIDERS: ATTEND Obstetrics & Gynecology
DX: C56.1 Malignant neoplasm of right ovary (principal); I31.39 Other pericardial effusion (noninflammatory); J98.4 Other disorders of lung; R59.0 Localized enlarged lymph nodes
CPT/HCPCS: 71260; 74177; Q9967

== ENCOUNTER 2022-10-04 13:02 | Inpatient (IN) | payer BC ==
[2022-10-04] MEDS ORDERED: IBUPROFEN 600 MG TAB PO STA (13:23)
[2022-10-04] MEDS ORDERED: ACETAMINOPHEN TAB 500 MG TAB PO STA (13:23)
[2022-10-04] MEDS ORDERED: cefTRIAXone IN SWFI 1,000 MG/10 ML SYRINGE IVP STA (13:24)
--- NOTE | 2022-10-04 13:28 | ED ---
General Adult HPI - General Chief complaint: Shortness of Breath Stated complaint: SOB Time Seen by Provider: 10/04/22 13:10 Source: patient, family, RN notes reviewed, old records reviewed Mode of arrival: wheelchair Limitations: no limitations - History of Present Illness Initial comments: This is a 57-year-old female presents emergency department with past medical history significant for metastatic ovarian cancer. Patient also appeared current effusion and she had a pericardial window done a few months ago. Patient comes in today because she's had shortness of breath for quite a while now but since yesterday she feels as though her shortness of breath is much worse and she is coughing uncontrollably at times. Patient denies chest pain or palpitations. Patient denies lightheadedness or dizziness per patient denies abdominal pain patient denies nausea vomiting diarrhea patient denies any dysuria hematuria urinary frequency. - Related Data Home Medications Medication Instructions Recorded Confirmed Astragalus Root 2 cap PO Q3H 10/04/22 10/04/22 Cetirizine HCl [Zyrtec] 10 mg PO HS 10/04/22 10/04/22 Doterra Copaiba 2 cap PO HS 10/04/22 10/04/22 Doterra On Guard 2 cap PO DAILY 10/04/22 10/04/22 Famotidine 20 mg PO BID 10/04/22 10/04/22 Fluticasone Nasal [place] [Flonase 1 spr EA NOSTRIL BID 10/04/22 10/04/22 Nasal [place]] Fluticasone/Vilanterol [Breo 1 puff INHALATION RT-HS 10/04/22 10/04/22 Ellipta 200-25 Mcg Inhaler] Magnesium Taurate 1 cap PO HS 10/04/22 10/04/22 Allergies Allergy/AdvReac Type Severity Reaction Status Date / Time carboplatin Allergy Anaphylaxis Verified 10/04/22 16:20 hydromorphone [From Dilaudid] AdvReac falls Verified 10/04/22 16:20 asleep hard to arouse Review of Systems ROS Statement: Those systems with pertinent positive or pertinent negative responses have been documented in the HPI. ROS Other: All systems not noted in ROS Statement are negative. Past Medical History Past Medical History: Cancer Additional Past Medical History / Comment(s): hx ovarian cancer Reoccurence ovarian cancer August 2021, recent CT that showed inflammation pr essing on trachea History of Any Multi-Drug Resistant Organisms: None Reported Past Surgical History: Bowel Resection, Cholecystectomy, Hernia Repair, Hysterectomy Past Anesthesia/Blood Transfusion Reactions: No Reported Reaction Past Psychological History: No Psychological Hx Reported Smoking Status: Never smoker Past Alcohol Use History: None Reported Past Drug Use History: None Reported - Past Family History Father History Unknown: Yes Family Medical History: Hypertension, Myocardial Infarction ([place]) Mother Family Medical History: Diabetes Mellitus, Hypertension General Exam - General Exam Comments Initial Comments: GENERAL: Patient is well-developed and well-nourished. Patient is nontoxic and well- hydrated and is in mild distress. I took the patient's temperature she had a fever for 102.1 ENT: Neck is soft and supple. No significant lymphadenopathy is noted. Oropharynx is clear. Moist mucous membranes. Neck has full range of motion without eliciting any pain. EYES: The sclera were anicteric and conjunctiva were pink and moist. Extraocular movements were intact and pupils were equal round and reactive to light. Ey elids were unremarkable. PULMONARY: Patient has crackles in the left base CARDIOVASCULAR: Patient is tachycardic at about 120 beats a minute ABDOMEN: Soft and nontender with normal bowel sounds. SKIN: Skin is clear with no lesions or rashes and otherwise unremarkable. NEUROLOGIC: Patient is alert and oriented x3. Cranial nerves II through XII are grossly intact. Motor and sensory are also intact. Normal speech, volume and content. Symmetrical smile. MUSCULOSKELETAL: Normal extremities with adequate strength and full range of motion. LYMPHATICS: No significant lymphadenopathy is noted PSYCHIATRIC: Normal psychiatric evaluation. Limitations: no limitations Course Vital Signs 10/04/22 10/04/22 10/04/22 13:07 13:13 13:20 Temperature 97.9 F 102.1 F H Pulse Rate 117 H 113 H Respiratory 26 H 28 H 18 Rate Blood Pressure 108/64 140/80 O2 Sat by Pulse 94 L 92 L Oximetry 10/04/22 15:24 Temperature Pulse Rate 78 Respiratory 18 Rate Blood Pressure 137/95 O2 Sat by Pulse 95 Oximetry Medical Decision Making - Medical Decision Making EKG shows sinus tachycardia at 110 bpm levels 113 QRSs 121 Q-T intervals 340 QTC is 45. Patient's EKG shows T-wave inversions in V2 V3 V4 V5 and V6 Was pt. sent in by a medical professional or institution (JACLYN Regalado, [employer]TER, urgent care, hospital, or halfway...) When possible be specific @ -No Did you speak to anyone other than the patient for history (EMS, parent, family, police, friend...)? What history was obtained from this source @ -No Did you review nursing and triage notes (agree or disagree)? Why? @ -I reviewed and agree with nursing and triage notes Were old charts reviewed (outside hosp., previous admission, EMS record, old EKG, old radiological studies, urgent care reports/EKG's, halfway records)? Report findings @ -Reviewed prior lab work and radiological studies Differential Diagnosis (chest pain, altered mental status, abdominal pain women, abdominal pain men, vaginal bleeding, weakness, fever, dyspnea, syncope, headache, dizziness, GI bleed, back pain, seizure, CVA, palpatations, mental health, musculoskeletal)? @ -Differential Dyspnea: Coronary syndrome, arrhythmia, tamponade, asthma, COPD, pulmonary embolism, pneumonia, pneumothorax, pulmonary effusion, anaphylaxis, diabetic ketoacidosis, flailed chest, pulmonary contusion, diaphragmatic rupture, anemia, neuromuscular, this is not meant to be an all-inclusive list. EKG interpreted by me (3pts min.). @ -As above X-rays interpreted by me (1pt min.). @ -Chest x-ray shows an infiltrate on the lateral view CT interpreted by me (1pt min.). @ -None done U/S interpreted by me (1pt. min.). @ -None done What testing was considered but not performed or refused? (CT, X-rays, U/S, labs)? Why? @ -None What meds were considered but not given or refused? Why? @ -None Did you discuss the management of the patient with other professionals (prof stacy i.e. JACLYN Regalado, [employer]TER, lab, RT, psych nurse, social media community manager, chief substation operator, teacher, banking services officer, comp field case manager)? Give summary @ -I spoke with Dr. Palomo and he agreed to admit the patient admitted the patient wrote admitting orders Was smoking cessation discussed for >3mins.? @ -No Was critical care preformed (if so, how long)? @ -No Were there social determinants of health that impacted care today? How? (Homelessness, low income, unemployed, alcoholism, drug addiction, transportat ion, low edu. Level, literacy, decrease access to med. care, prison, rehab)? @ -No Was there de-escalation of care discussed even if they declined (Discuss DNR or withdrawal of care, Hospice)? DNR status @ -No What co-morbidities impacted this encounter? (DM, HTN, Smoking, COPD, CAD, Cancer, CVA, ARF, Chemo, Hep., AIDS, mental health diagnosis, sleep apnea, morbid obesity)? @ -None Was patient admitted / discharged? Hospital course, mention meds given and route, prescriptions, significant lab abnormalities, going to OR and other pertinent info. @ -Patient's x-ray showed a infiltrate on the lateral view. I started the patient on antibiotics and Dr. Dr. Palomo he agreed to admit the patient admitted the patient wrote admitting orders. Patient initially had over 102 fever. Undiagnosed new problem with uncertain prognosis? @ -No Drug Therapy requiring intensive monitoring for toxicity (Heparin, Nitro, Insulin, Cardizem)? @ -No Were any procedures done? @ -No Diagnosis/symptom? @ -Pneumonia Acute, or Chronic, or Acute on Chronic? @ -Acute Uncomplicated (without systemic symptoms) or Complicated (systemic symptoms)? @ -Complicated Side effects of treatment? @ -No Exacerbation, Progression, or Severe Exacerbation? @ -No Poses a threat to life or bodily function? How? (Chest pain, [place], [place], pneumonia, PE, COPD, DKA, ARF, appy, cholecystitis, CVA, Diverticulitis, Homicidal, Suicidal, threat to staff... and all critical care pts) @ -No - Lab Data Result diagrams: 10/04/22 13:31 10/04/22 13:31 Lab Results 10/04/22 10/04/22 10/04/22 Range/Units 13:31 13:31 13:31 WBC 9.1 (3.8-10.6) k/uL RBC 3.38 L (3.80-5.40) m/uL Hgb 11.6 (11.4-16.0) gm/dL Hct 34.5 (34.0-46.0) % MCV 102.1 H (80.0-100.0) fL MCH 34.2 (25.0-35.0) pg MCHC 33.5 (31.0-37.0) g/dL RDW 15.9 H (11.5-15.5) % Plt Count 279 (150-450) k/uL MPV 7.7 Neutrophils % 82 % Lymphocytes % 11 % Monocytes % 5 % Eosinophils % 1 % Basophils % 0 % Neutrophils # 7.5 (1.3-7.7) k/uL Lymphocytes # 1.0 (1.0-4.8) k/uL Monocytes # 0.4 (0-1.0) k/uL Eosinophils # 0.1 (0-0.7) k/uL Basophils # 0.0 (0-0.2) k/uL Hypochromasia Slight Poikilocytosis Slight Macrocytosis Slight Sodium 135 L (137-145) mmol/L Potassium 3.6 (3.5-5.1) mmol/L Chloride 99 (98-107) mmol/L Carbon Dioxide 26 (22-30) mmol/L Anion Gap 10 mmol/L BUN 6 L (7-17) mg/dL Creatinine 0.67 (0.52-1.04) mg/dL Est GFR (CKD-EPI)AfAm >90 (>60 ml/min/1.73 sqM) Est GFR (CKD-EPI)NonAf >90 (>60 ml/min/1.73 sqM) Glucose 130 H (74-99) mg/dL Plasma Lactic Acid Narinder 1.7 (0.7-2.0) mmol/L Calcium 9.3 (8.4-10.2) mg/dL Total Bilirubin 1.0 (0.2-1.3) mg/dL AST 21 (14-36) U/L ALT 17 (4-34) U/L Alkaline Phosphatase 105 (38-126) U/L Total Protein 7.3 (6.3-8.2) g/dL Albumin 3.9 (3.5-5.0) g/dL Urine Color Urine Appearance (Clear) Urine pH (5.0-8.0) Ur Specific [place] (1.001-1.035) Urine Protein (Negative) Urine Glucose (UA) (Negative) Urine Ketones (Negative) Urine Blood (Negative) Urine Nitrite (Negative) Urine Bilirubin (Negative) Urine Urobilinogen (<2.0) mg/dL Ur Leukocyte Esterase (Negative) Urine RBC (0-5) /hpf Urine WBC (0-5) /hpf Ur Squamous Epith Cells (0-4) /hpf Urine Mucus (None) /hpf Influenza Type A (PCR) (Not Detectd) Influenza Type B (PCR) (Not Detectd) RSV (PCR) (Not Detectd) SARS-CoV-2 (PCR) (Not Detectd) 10/04/22 10/04/22 Range/Units 13:31 16:31 WBC (3.8-10.6) k/uL RBC (3.80-5.40) m/uL Hgb (11.4-16.0) gm/dL Hct (34.0-46.0) % MCV (80.0-100.0) fL MCH (25.0-35.0) pg MCHC (31.0-37.0) g/dL RDW (11.5-15.5) % Plt Count (150-450) k/uL MPV Neutrophils % % Lymphocytes % % Monocytes % % Eosinophils % % Basophils % % Neutrophils # (1.3-7.7) k/uL Lymphocytes # (1.0-4.8) k/uL Monocytes # (0-1.0) k/uL Eosinophils # (0-0.7) k/uL Basophils # (0-0.2) k/uL Hypochromasia Poikilocytosis Macrocytosis Sodium (137-145) mmol/L Potassium (3.5-5.1) mmol/L Chloride (98-107) mmol/L Carbon Dioxide (22-30) mmol/L Anion Gap mmol/L BUN (7-17) mg/dL Creatinine (0.52-1.04) mg/dL Est GFR (CKD-EPI)AfAm (>60 ml/min/1.73 sqM) Est GFR (CKD-EPI)NonAf (>60 ml/min/1.73 sqM) Glucose (74-99) mg/dL Plasma Lactic Acid [place]inder (0.7-2.0) mmol/L Calcium (8.4-10.2) mg/dL Total Bilirubin (0.2-1.3) mg/dL AST (14-36) U/L ALT (4-34) U/L Alkaline Phosphatase (38-126) U/L Total Protein (6.3-8.2) g/dL Albumin (3.5-5.0) g/dL Urine Color Yellow Urine Appearance Cloudy H (Clear) Urine pH 6.0 (5.0-8.0) Ur Specific [place] 1.034 (1.001-1.035) Urine Protein 2+ H (Negative) Urine Glucose (UA) Negative (Negative) Urine Ketones Trace H (Negative) Urine Blood Negative (Negative) Urine Nitrite Negative (Negative) Urine Bilirubin Negative (Negative) Urine Urobilinogen <2.0 (<2.0) mg/dL Ur Leukocyte Esterase Moderate H (Negative) Urine RBC 2 (0-5) /hpf Urine WBC 3 (0-5) /hpf Ur Squamous Epith Cells 2 (0-4) /hpf Urine Mucus Moderate H (None) /hpf Influenza Type A (PCR) Not Detected (Not Detectd) Influenza Type B (PCR) Not Detected (Not Detectd) RSV (PCR) Not Detected (Not Detectd) SARS-CoV-2 (PCR) Not Detected (Not Detectd) Disposition Clinical Impression: Pneumonia Disposition: ADMITTED IP TO THIS HOSP Referrals: Flower Aguilar MD [Primary Care Provider] - 1-2 days Time of Disposition: 17:46
[2022-10-04 13:46] LABS: Basophils % (A) 0 %; Eosinophils # (A) 0.1 k/uL (0-0.7); Eosinophils % (A) 1 %; HCT 34.5 % (34.0-46.0); HGB 11.6 gm/dL (11.4-16.0); Hypochromasia Slight; Lymphocytes % (A) 11 %; MCH 34.2 pg (25.0-35.0); MCHC 33.5 g/dL (31.0-37.0); MCV 102.1 fL (80.0-100.0); Macrocytosis Slight; Mean Platelet Volume 7.7; Monocytes # (A) 0.4 k/uL (0-1.0); Monocytes % (A) 5 %; Neutrophils # (A) 7.5 k/uL (1.3-7.7); Neutrophils % (A) 82 %; Platelet Count 279 k/uL (150-450); Poikilocytosis Slight; RBC 3.38 m/uL (3.80-5.40); RDW 15.9 % (11.5-15.5); WBC 9.1 k/uL (3.8-10.6)
[2022-10-04 13:55] LABS: ALT 17 U/L (4-34); AST 21 U/L (14-36); African American GFR (CKD) >90 (>60 ml/min/1.73 sqM); Albumin 3.9 g/dL (3.5-5.0); Alkaline Phosphatase 105 U/L (38-126); Anion Gap 10 mmol/L; Blood Urea Nitrogen 6 mg/dL (7-17); Calcium 9.3 mg/dL (8.4-10.2); Carbon Dioxide 26 mmol/L (22-30); Chloride 99 mmol/L (98-107); Glucose 130 mg/dL (74-99); Non-African American GFR(CKD) >90 (>60 ml/min/1.73 sqM); Potassium 3.6 mmol/L (3.5-5.1); Sodium 135 mmol/L (137-145); Total Protein 7.3 g/dL (6.3-8.2)
--- NOTE | 2022-10-04 13:55 | XR ---
EXAMINATION TYPE: XR chest 2V DATE OF EXAM: 10/04/2022 COMPARISON: 07/28/2022 HISTORY: Shortness of breath TECHNIQUE: Frontal and lateral views of the chest are obtained. FINDINGS: Scattered senescent parenchymal changes noted. Hyperinflation compatible with COPD. No evidence for infiltrate. No evidence for atelectasis. Nonspecific prominent lung markings remain e ssentially unchanged without focal consolidation. Heart size is stable. Mediastinal structures are stable and grossly unremarkable. No evidence for hilar prominence. Degenerative changes dorsal spine. IMPRESSION: 1. Nonspecific prominent lung markings remain essentially unchanged without focal consolidation.
[2022-10-04] MEDS: SODIUM CHLORIDE 0.9% 500 ML 500 ML IV SCH ×2 (13:59→18:44)
[2022-10-04 17:18] LABS: Appearance,Urine Cloudy (Clear); Bilirubin,Urine Negative (Negative); Blood,Urine Negative (Negative); Color,Urine Yellow; Glucose,Urine (UA) Negative (Negative); Ketones,Urine Trace (Negative); Leukocyte Esterase,Urine Moderate (Negative); Mucus,Urine Moderate /hpf; Nitrite,Urine Negative (Negative); Protein,Urine 2+ (Negative); RBC,Urine 2 /hpf (0-5); Specific Gravity,Urine 1.034 (1.001-1.035); Squamous Epithelial Cell,Urine 2 /hpf (0-4); Urobilinogen,Urine <2.0 mg/dL (<2.0); WBC,Urine 3 /hpf (0-5)
[2022-10-04] MEDS ORDERED: PNEUMONIA PROTOCOL UTILIZED 1 EACH MISC PO PRN (17:46)
[2022-10-04] MEDS ORDERED: AZITHROMYCIN 500 MG in SODIUM CHLORIDE 0.9% 250 ML IVPB STA (17:46)
--- NOTE | 2022-10-04 18:43 | P.HPIM ---
History of Present Illness H&P Date: 10/04/22 Saloni Dent, is a 57-year-old female who presented to [facility] emergency room with a chief complaint of worsening shortness of breath. Patient has a known history of ovarian cancer diagnosed 14 years ago she has been maintained on chemotherapy in the past, recently she was maintained on Zeluja, which was stopped about 3 weeks ago by her oncologist Dr. Portillo, due to side effect of lung inflammation. Patient has been complaining of cough and shortness of breath. However his symptoms have been worse in the last few days. Patient had previous admission with shortness of breath at that time she had evidence of pericardial effusion, she underwent pericardial window. She also had a previous admission was urinary tract infection with severe sepsis. She was evaluated in the emergency room vital examination on presentation revealed a temperature of 97.9 heart rate 117 respiration 26 blood pressure 108/64 pulse ox 94% on room air, shortly afterwards patient had a temperature of 102.1 Laboratory data revealed a white blood count of 9.1 hemoglobin 11.6 platelet count 279 sodium 135 potassium 3.6 chloride 99 CO2 26 BUN 6 creatinine 0.67 urine analysis revealed cloudy urine with positive leukocyte esterase and positive mucus Testing in the emergency room revealed chest x-ray revealed nonspecific prominent lung markings. On 09/30/2022 patient underwent a computed tomography scan of the chest abdomen and pelvis which revealed improving mesenteric lymphadenopathy right medial lung field density and right hilar adenopathy versus mass encasing the right middle and lower lobe bronchi. Patient was admitted to medical floor for further evaluation and treatment Past Medical History Past Medical History: Cancer Additional Past Medical History / Comment(s): hx ovarian cancer Reoccurence ovarian cancer August 2021, recent CT that showed inflammation pressing on trachea History of Any Multi-Drug Resistant Organisms: None Reported Past Surgical History: Bowel Resection, Cholecystectomy, Hernia Repair, Hysterectomy Past Anesthesia/Blood Transfusion Reactions: No Reported Reaction Past Psychological History: No Psychological Hx Reported Smoking Status: Never smoker Past Alcohol Use History: None Reported Past Drug Use History: None Reported - Past Family History Father History Unknown: Yes Family Medical History: Hypertension, Myocardial Infarction ([place]) Mother Family Medical History: Diabetes Mellitus, Hypertension Medications and Allergies Home Medications Medication Instructions Recorded Confirmed Type Astragalus Root 2 cap PO Q3H 10/04/22 10/04/22 History Cetirizine HCl [Zyrtec] 10 mg PO HS 10/04/22 10/04/22 History Doterra Copaiba 2 cap PO HS 10/04/22 10/04/22 History Doterra On Guard 2 cap PO DAILY 10/04/22 10/04/22 History Famotidine 20 mg PO BID 10/04/22 10/04/22 History Fluticasone Nasal [place] [Flonase 1 spr EA NOSTRIL BID 10/04/22 10/04/22 History Nasal [place]] Fluticasone/Vilanterol [Breo 1 puff INHALATION RT-HS 10/04/22 10/04/22 History Ellipta 200-25 Mcg Inhaler] Magnesium Taurate 1 cap PO HS 10/04/22 10/04/22 History Allergies Allergy/AdvReac Type Severity Reaction Status Date / Time carboplatin Allergy Anaphylaxis Verified 10/04/22 16:20 hydromorphone [From Dilaudid] AdvReac falls Verified 10/04/22 16:20 asleep hard to arouse Physical Exam Vitals: Vital Signs Temp Pulse Resp BP Pulse Ox 10/04/22 15:24 78 18 137/95 95 10/04/22 13:20 102.1 F H 113 H 18 140/80 92 L 10/04/22 13:13 28 H 10/04/22 13:07 97.9 F 117 H 26 H 108/64 94 L Intake and Output 10/04/22 10/04/22 10/04/22 06:59 14:59 22:59 Other: Weight 88.451 kg In general patient is alert and oriented x 3 in no distress HEENT head normocephalic and atraumatic Neck is supple no JVD no goiter no lymphadenopathy no carotid bruit Chest examination reveals a scattered crackles bilaterally with wheezing Cardiac exam reveals regular heart sounds S1 and S2 no gallops no murmurs Abdomen is soft nontender no organomegaly with normal bowel sounds Extremity exam reveals no edema no cyanosis or clubbing Neurological examination reveals no gross focal deficits Results CBC & Chem 7: 10/04/22 13:31 10/04/22 13:31 Labs: Abnormal Lab Results - Last 24 Hours (Table) 10/04/22 10/04/22 10/04/22 Range/Units 13:31 13:31 16:31 RBC 3.38 L (3.80-5.40) m/uL MCV 102.1 H (80.0-100.0) fL RDW 15.9 H (11.5-15.5) % Sodium 135 L (137-145) mmol/L BUN 6 L (7-17) mg/dL Glucose 130 H (74-99) mg/dL Urine Appearance Cloudy H (Clear) Urine Protein 2+ H (Negative) Urine Ketones Trace H (Negative) Ur Leukocyte Esterase Moderate H (Negative) Urine Mucus Moderate H (None) /hpf Assessment and Plan Plan: Sepsis on admission as evidenced by tachycardia, tachypnea, and fever of 102.1 Evidence of urinary tract infection Underlying history of metastatic ovarian cancer Recent treatment with Zeluja, for metastatic ovarian cancer, medication was stopped by her oncologist Dr. Thibodeaux due to side effect of lung inflammation Recent history of pericardial effusion with pericardial window a few months ago At this time patient will be admitted to telemetry floor She was started on IV Rocephin and IV Zithromax in the emergency room Urine culture and blood culture were ordered Will check d-dimer, Home medications reviewed and reordered Infectious disease pulmonary and oncology consultation requested For DVT prophylaxis will add Lovenox Prognosis is guarded will follow closely
[2022-10-04] MEDS: FAMOTIDINE 20 MG TAB PO SCH (20:21)
[2022-10-04] MEDS: SYMBICORT 160-4.5 MCG INHALER INHALATION SCH (20:22)
[2022-10-04] MEDS: FLUTICASONE 50MCG/SPRAY NASAL 16GM EA NOSTRIL SCH (20:57)
[2022-10-04] MEDS ORDERED: guaiFENesin-DM 100-10MG/5ML 10 ML CUP PO PRN (23:54)
[2022-10-05] MEDS ORDERED: IPRATROPIUM-ALBUTEROL 3 ML NEB INHALATION PRN (03:25)
--- NOTE | 2022-10-05 04:06 | P.CNPUL ---
History of Present Illness Consult date: 10/05/22 Requesting physician: Narciso Palomo Reason for consult: dyspnea Chief complaint: Shortness of breath and cough History of present illness: I am seeing this patient in new consultation today 10/05/2022 on the general medical floor for acute on chronic shortness of breath and worsening cough. Patient is a 57-year-old white female with past medical history significant for metastatic ovarian cancer. She was originally diagnosed in June 2008. She underwent a total abdominal hysterectomy and bilateral salpingo-oophorectomy. Subsequently, she received systemic chemotherapy with carboplatinum and Taxol. Back in 2013, she was found to have pelvic recurrence and elevated CA-125 level. She underwent cytoreduction with extensive laparotomy lysis of adhesions sigmoid resection and primary reanastomosis. She completed 6 cycles of systemic chemotherapy with carboplatin. Subsequently in 2018, a colonoscopy guided biopsy of a 4 cm rectal mass showed tumor recurrence. She was restarted again on systemic chemotherapy with carboplatin. At the later stage, the patient was placed on Rucaparib , subsequent follow-up shows progressive CA 125 level and computed tomography scan demonstrated evidence of disease recurrence with new pulmonary nodules and increasing lymphadenopathy within the mediastinum and abdomen. In 2019, she was started on carboplatinum and Gemzar. The PET scan done on July 2022 showed multiple areas of mediastinal adenopathy, lower neck lymphadenopathy, intra-abdominal adenopathy including the mesentery, gastrohepatic ligament, and gisele hepatis concerning for metastatic disease. Patient did also have a recent hospital admission for a malignant pericardial effusion and window during this time. A follow-up CT of the chest, abdomen, pelvis earlier this month showed improving mesenteric lymphadenopathy with mild periaortic and retrocaval matted adenopathy, a right medial lung field density, right hilar adenopathy versus mass encasing the right middle lobe and lower lobe bronchi and vessels, and diminished pericardial effusion. Patient does report a chronic cough that was originally attributed to Gemzar induced cough/pneumonitis. She does report some improvement after discontinuation. Patient was also recently started on Zejula, and reportedly had a reaction, possibly pneumonitis. Patient follows with her oncologist Tod Downey at [facility], and is not receiving any treatment currently. Patient did come back into the hospital yesterday afternoon with chief complaint of progressive shortness of breath and persistent nonproductive cough worse over the last 24 hours. She also reports fever and chills. She denies any chest pain, hemoptysis. She denies nausea, vomiting, diarrhea, abdominal pain. She was febrile, tachypneic, tachycardic on arrival. Currently, patient is resting in bed, on 2 L nasal cannula, in no acute distress. Chest x-ray on arrival showed no focal consolidation or obvious evidence of pneumonia. Patient is empirically being covered on a combination of Rocephin and Zithromax. Blood and urine cultures are pending. urinalysis shows moderate leukocyte esterase, but she denies any urinary complaints. CBC on arrival was unremarkable. BMP on arrival was also unremarkable. D-dimer elevated but improved from recent admission. Negative for influenza, RSV, COVID-19. Vital signs are stable. Past Medical History Past Medical History: Cancer Additional Past Medical History / Comment(s): hx ovarian cancer Reoccurence ovarian cancer August 2021, recent CT that showed inflammation pressing on trachea, no current treatment History of Any Multi-Drug Resistant Organisms: None Reported Past Surgical History: Bowel Resection, Cholecystectomy, Hernia Repair, Hysterectomy Past Anesthesia/Blood Transfusion Reactions: No Reported Reaction Past Psychological History: No Psychological Hx Reported Smoking Status: Former smoker Past Alcohol Use History: None Reported Past Drug Use History: None Reported - Past Family History Father History Unknown: Yes Family Medical History: Hypertension, Myocardial Infarction ([place]) Mother Family Medical History: Diabetes Mellitus, Hypertension Medications and Allergies Home Medications Medication Instructions Recorded Confirmed Type Astragalus Root 2 cap PO Q3H 10/04/22 10/04/22 History Cetirizine HCl [Zyrtec] 10 mg PO HS 10/04/22 10/04/22 History Doterra Copaiba 2 cap PO HS 10/04/22 10/04/22 History Doterra On Guard 2 cap PO DAILY 10/04/22 10/04/22 History Famotidine 20 mg PO BID 10/04/22 10/04/22 History Fluticasone Nasal [place] [Flonase 1 spr EA NOSTRIL BID 10/04/22 10/04/22 History Nasal [place]] Fluticasone/Vilanterol [Breo 1 puff INHALATION RT-HS 10/04/22 10/04/22 History Ellipta 200-25 Mcg Inhaler] Magnesium Taurate 1 cap PO HS 10/04/22 10/04/22 History Allergies Allergy/AdvReac Type Severity Reaction Status Date / Time carboplatin Allergy Anaphylaxis Verified 10/04/22 16:20 hydromorphone [From Dilaudid] AdvReac falls Verified 10/04/22 16:20 asleep hard to arouse Physical Exam Vitals: Vital Signs Temp Pulse Pulse Resp BP BP Pulse Ox 10/05/22 01:42 99 F 97 18 99/56 96 10/04/22 23:34 98.1 F 103 H 16 123/77 97 10/04/22 23:00 98.0 F 91 18 122/86 97 10/04/22 20:24 106 H 20 138/86 96 10/04/22 15:24 78 18 137/95 95 10/04/22 13:20 102.1 F H 113 H 18 140/80 92 L 10/04/22 13:13 28 H 10/04/22 13:07 97.9 F 117 H 26 H 108/64 94 L Intake and Output 10/04/22 10/04/22 10/05/22 14:59 22:59 06:59 Other: Weight 88.451 kg 88.451 kg GENERAL EXAM: Alert, 57-year-old white female, comfortable in no apparent distress. HEAD: Normocephalic and atraumatic EYES: Normal reaction of pupils, equal size. NOSE: Clear with pink turbinates. THROAT: No erythema or exudates. NECK: No masses, no JVD. CHEST: No chest wall deformity. LUNGS: Equal air entry with some mild end expiratory wheezes. no crackles, rhonchi or dullness. On 2 L nasal cannula. No conversational dyspnea or accessory muscle use.. CVS: S1 and S2 normal with no audible murmur, regular rhythm. No extra heart sounds ABDOMEN: No hepatosplenomegaly, active bowel sounds, no guarding or rigidity. SPINE: No scoliosis or deformity SKIN: No rashes CENTRAL NERVOUS SYSTEM: No focal deficits, tone is normal in all 4 extremities. EXTREMITIES: There is no peripheral edema, clubbing, or cyanosis. Peripheral pulses are intact. Results - Laboratory Findings CBC and BMP: 10/04/22 13:31 10/04/22 13:31 PT/INR, D-dimer D-Dimer 1.00 mg/L FEU (<0.60) H 10/04/22 18:31 Abnormal lab findings: Abnormal Labs 10/04/22 10/04/22 10/04/22 13:31 13:31 16:31 RBC 3.38 L MCV 102.1 H RDW 15.9 H D-Dimer Sodium 135 L BUN 6 L Glucose 130 H Urine Appearance Cloudy H Urine Protein 2+ H Urine Ketones Trace H Ur Leukocyte Esterase Moderate H Urine Mucus Moderate H 10/04/22 18:31 RBC MCV RDW D-Dimer 1.00 H Sodium BUN Glucose Urine Appearance Urine Protein Urine Ketones Ur Leukocyte Esterase Urine Mucus - Diagnostic Findings Chest x-ray: image reviewed Assessment and Plan Assessment: Acute febrile illness, currently under investigation Acute hypoxic respiratory failure possibly secondary to acute bronchitis. Currently on 2 L nasal cannula. Chest x-ray on arrival showed no focal consolidation or obvious evidence of pneumonia. Negative for influenza, RSV, COVID-19. Metastatic ovarian cancer initially diagnosed back in 2008 with recurrence. Most recent chest, abdominal, pelvis CT shows improving mesenteric lym phadenopathy, mild periaortic and retrocaval matted adenopathy, right medial lung field density concerning for recurrent mass, right hilar adenopathy versus mass encasing the right middle lobe and lower lobe bronchi and vessels, and a diminished pericardial effusion. Treatment is currently on hold. 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 Number of minutes spent on the visit:20 Time with Patient: Greater than 30
[2022-10-05] MEDS: methylPREDNISolone SOD SUCCI 125 MG/2 ML VIAL IV SCH ×3 (05:15→17:50)
[2022-10-05] MEDS: SYMBICORT 160-4.5 MCG INHALER INHALATION SCH ×2 (08:05→21:06)
[2022-10-05] MEDS: IPRATROPIUM-ALBUTEROL 3 ML NEB INHALATION PRN ×4 (08:05→21:06)
--- NOTE | 2022-10-05 08:10 | XR ---
EXAMINATION TYPE: XR chest 2V DATE OF EXAM: 10/05/2022 COMPARISON: 10/04/2022 HISTORY: 57-year-old female pneumonia TECHNIQUE: Frontal and lateral views FINDINGS: Heart borderline in size. Mild hyperinflation. Mild interstitial prominence. No grisel consolidation o r pleural effusion. IMPRESSION: Possible background COPD. Interstitial densities present. Consider bronchitis, asthma, or atypical pn eumonias. Relatively similar to prior.
[2022-10-05 08:46] LABS: HCT 31.5 % (37.2-46.3); HGB 9.8 g/dL (12.0-15.0); MCH 32.8 pg (27.0-32.0); MCHC 31.1 g/dL (32.0-37.0); MCV 105.4 fL (80.0-97.0); Mean Platelet Volume 9.7 fL (9.5-12.2); NRBC Per 100 WBC 0 /100 WBCS (0.0-0.0); Platelet Count 188 X 10*3/uL (140-440); RBC 2.99 X 10*6/uL (4.10-5.20); RDW 15.5 % (11.5-14.5); WBC 6.44 X 10*3/uL (4.50-10.00)
[2022-10-05 08:55] LABS: African American GFR (CKD) 112.3 (60.0-200.0); Albumin 3.6 g/dL (3.8-4.9); Albumin/Globulin Ratio 1.29 (1.60-3.17); Anion Gap 11.7 mmol/L (10.00-18.00); BUN/Creat Ratio 10.86 Ratio (12.00-20.00); Blood Urea Nitrogen 7.6 mg/dL (9.0-27.0); Calcium 8.8 mg/dL (8.7-10.3); Carbon Dioxide 22.3 mmol/L (20.0-27.5); Globulin 2.8 g/dL (1.6-3.3); Magnesium 1.4 mg/dL (1.5-2.4); Non-African American GFR(CKD) 96.9 (60.0-200.0); Potassium 3.7 mmol/L (3.5-5.5); Total Bilirubin 0.5 mg/dL (0.30-1.20); Total Protein 6.4 g/dL (6.2-8.2)
[2022-10-05] MEDS: FAMOTIDINE 20 MG TAB PO SCH ×2 (09:02→20:38)
[2022-10-05] MEDS: FLUTICASONE 50MCG/SPRAY NASAL 16GM EA NOSTRIL SCH ×2 (09:02→20:39)
[2022-10-05] MEDS: AZITHROMYCIN 500 MG TAB PO SCH (09:02)
[2022-10-05 10:50] LABS: Basophils # (A) 0.02 X 10*3/uL (0.00-0.10); Basophils % (A) 0.3 %; Eosinophils # (A) 0.08 X 10*3/uL (0.04-0.35); Eosinophils % (A) 1.2 %; Immature Grans, Automated 0.9 %; Lymphocytes % (A) 10.9 %; Macrocytosis (M) 2+; Monocytes # (A) 0.54 X 10*3/uL (0.20-1.00); Monocytes % (A) 8.4 %; Neutrophils # (A) 5.04 X 10*3/uL (1.80-7.70); Neutrophils % (A) 78.3 %; Polychromasia 2+
[2022-10-05] MEDS ORDERED: FLUCONAZOLE 150 MG TAB PO STA (11:40)
[2022-10-05] MEDS: NYSTATIN 100,000 UNIT/ML SUSP 500,000 UNIT/5 ML CUP PO SCH ×3 (12:39→20:38)
--- NOTE | 2022-10-05 15:14 | P.CONS ---
History of Present Illness - Reason for Consult Consult date: 10/05/22 hx of ovarian cancer Requesting physician: Narciso Palomo - Chief Complaint SOB - History of Present Illness Patient is a 56-year-old female patient with a significant hx of metastatic ovarian cancer. She was originally diagnosed in June 2008 and underwent a total abdominal hysterectomy and bilateral salpingo-oophorectomy and follows with Dr. Cerda and Dr. Thibodeaux. Patient presented to the emergency room with complaints of shortness of breath and cough. Of note patient was admitted 2 months ago for shortness of breath was found to have pericardial effusion with pericardial window placed. Pericardial fluid and pericardium biopsy were positive for metastatic ovarian carcinoma. Upon presentation to the ER chest x-ray revealed possible background COPD and interstitial densities present. Patient was started on Rocephin, azithromycin, IV steroids and breathing treatments. ID and pulmonology consulted. T max 102.1. Afebrile today. Influenza, RSV, COVID negative. blood, sputum, and urine cultures ordered. Patient reports improvement in breathing today. Oxygen saturation 96% on 2L NC. She reports persisting cough. Hemoglobin 9.8, WBC 6.4, platelets 180,000. Oncology hx: Patient was originally diagnosed with ovarian cancer in June 2008. She follows with Dr. Prabhakar from [place] and Dr. Thibodeaux from [facility]. She has followed up in our office with Dr. Smith for chemotherapy treatments as she wanted treatments closer to home. We have not seen patient in clinic since 06/2020. In June 2008 patient had DONNA, Bilateral salpingo-oopherectomy, LN dissection, tumor debulking with optimal cytoreduction. BRCA neg Patient has an extensive cancer history and has had multiple treatment regimens. She currently is following with Dr. Thibodeaux, and completed 7 cycles of Doxil/carbo in February 2022, and started maintenance Zejula 05/2022. CT CAP from 07/12/22 showed scattered abdominal lymphadenopathy and new right middle lobe 14 mm nodule with soft tissue around the right pulmonary hilum and extends along right trachea. PET scan on 07/23/2022 showed pulmonary mediastinal lymphadenopathy, lower neck lymphadenopathy, intra-abdominal lymphadenopathy including mesentery, gastrohepatic ligament and gisele hepatis. Findings likely relating to ovarian cancer, as pulmonary nodule demonstrated FDG activity below background levels. Patient reports that due to progressing wheezing since she started Zejula, she spoke with her primary oncologist who discontinued medication approximately 3 weeks ago. She has an upcoming appointment with Dr. Thibodeaux to discuss further treatment options. Patient reports that she was told that she will likely have to go back on chemotherapy. Review of Systems 10 point ROS is negative except as stated in the HPI Past Medical History Past Medical History: Cancer Additional Past Medical History / Comment(s): hx ovarian cancer Reoccurence ovarian cancer August 2021, recent CT that showed inflammation pressing on trachea, no current treatment History of Any Multi-Drug Resistant Organisms: None Reported Past Surgical History: Bowel Resection, Cholecystectomy, Hernia Repair, Hysterectomy Past Anesthesia/Blood Transfusion Reactions: No Reported Reaction Past Psychological History: No Psychological Hx Reported Smoking Status: Former smoker Past Alcohol Use History: None Reported Past Drug Use History: None Reported - Past Family History Father History Unknown: Yes Family Medical History: Hypertension, Myocardial Infarction ([place]) Mother Family Medical History: Diabetes Mellitus, Hypertension Medications and Allergies Home Medications Medication Instructions Recorded Confirmed Type Astragalus Root 2 cap PO Q3H 10/04/22 10/04/22 History Cetirizine HCl [Zyrtec] 10 mg PO HS 10/04/22 10/04/22 History Doterra Copaiba 2 cap PO HS 10/04/22 10/04/22 History Doterra On Guard 2 cap PO DAILY 10/04/22 10/04/22 History Famotidine 20 mg PO BID 10/04/22 10/04/22 History Fluticasone Nasal [place] [Flonase 1 spr EA NOSTRIL BID 10/04/22 10/04/22 History Nasal [place]] Fluticasone/Vilanterol [Breo 1 puff INHALATION RT-HS 10/04/22 10/04/22 History Ellipta 200-25 Mcg Inhaler] Magnesium Taurate 1 cap PO HS 10/04/22 10/04/22 History Allergies Allergy/AdvReac Type Severity Reaction Status Date / Time carboplatin Allergy Anaphylaxis Verified 10/04/22 16:20 hydromorphone [From Dilaudid] AdvReac falls Verified 10/04/22 16:20 asleep hard to arouse Physical Exam Vitals: Vital Signs Temp Pulse Pulse Resp BP BP Pulse Ox 10/05/22 08:27 100 05/23/23 08:08 101 H 96 10/05/22 07:14 99.1 F 102 H 18 125/77 10/05/22 01:42 99 F 97 18 99/56 96 10/04/22 23:34 98.1 F 103 H 16 123/77 97 10/04/22 23:00 98.0 F 91 18 122/86 97 10/04/22 20:24 106 H 20 138/86 96 10/04/22 15:24 78 18 137/95 95 10/04/22 13:20 102.1 F H 113 H 18 140/80 92 L 10/04/22 13:13 28 H 10/04/22 13:07 97.9 F 117 H 26 H 108/64 94 L Intake and Output 10/04/22 10/05/22 10/05/22 22:59 06:59 14:59 Intake Total 240 Balance 240 Intake: Oral 240 Other: # Voids 1 Weight 88.451 kg - Constitutional General appearance: average body habitus, no acute distress - EENT Eyes: anicteric sclerae, EOMI ENT: hearing grossly normal - Respiratory Respiratory: right: diminished, bilateral: rales - Cardiovascular Rhythm: regular Heart sounds: normal: S1, S2 Abnormal Heart Sounds: no systolic murmur, no diastolic murmur, no rub, no S3 Gallop, no S4 Gallop, no click, no other - Gastrointestinal General gastrointestinal: soft, no tenderness - Integumentary Integumentary: no cyanotic, no rash - Neurologic grossly intact - Musculoskeletal Musculoskeletal: strength equal bilaterally - Psychiatric Psychiatric: A&O x's 3, appropriate affect, intact judgment & insight Results CBC & Chem 7: 10/05/22 05:55 10/05/22 05:55 Labs: Abnormal Lab Results - Last 24 Hours (Table) 10/04/22 10/04/22 10/04/22 Range/Units 13:31 13:31 16:31 RBC 3.38 L (3.80-5.40) m/uL Hgb (12.0-15.0) g/dL Hct (37.2-46.3) % MCV 102.1 H (80.0-100.0) fL MCH (27.0-32.0) pg MCHC (32.0-37.0) g/dL RDW 15.9 H (11.5-15.5) % D-Dimer (<0.60) mg/L FEU Sodium 135 L (137-145) mmol/L BUN 6 L (7-17) mg/dL BUN/Creatinine Ratio (12.00-20.00) Ratio Glucose 130 H (74-99) mg/dL Magnesium (1.5-2.4) mg/dL Albumin (3.8-4.9) g/dL Albumin/Globulin Ratio (1.60-3.17) g/dL Procalcitonin (0.02-0.09) ng/mL Urine Appearance Cloudy H (Clear) Urine Protein 2+ H (Negative) Urine Ketones Trace H (Negative) Ur Leukocyte Esterase Moderate H (Negative) Urine Mucus Moderate H (None) /hpf 10/04/22 10/05/22 10/05/22 Range/Units 18:31 05:55 05:55 RBC 2.99 L (3.80-5.40) m/uL Hgb 9.8 L (12.0-15.0) g/dL Hct 31.5 L (37.2-46.3) % MCV 105.4 H (80.0-100.0) fL MCH 32.8 H (27.0-32.0) pg MCHC 31.1 L (32.0-37.0) g/dL RDW 15.5 H (11.5-15.5) % D-Dimer 1.00 H (<0.60) mg/L FEU Sodium (137-145) mmol/L BUN 7.6 L (7-17) mg/dL BUN/Creatinine Ratio 10.86 L (12.00-20.00) Ratio Glucose 138 H (74-99) mg/dL Magnesium 1.4 L (1.5-2.4) mg/dL Albumin 3.6 L (3.8-4.9) g/dL Albumin/Globulin Ratio 1.29 L (1.60-3.17) g/dL Procalcitonin (0.02-0.09) ng/mL Urine Appearance (Clear) Urine Protein (Negative) Urine Ketones (Negative) Ur Leukocyte Esterase (Negative) Urine Mucus (None) /hpf 10/05/22 Range/Units 05:55 RBC (3.80-5.40) m/uL Hgb (12.0-15.0) g/dL Hct (37.2-46.3) % MCV (80.0-100.0) fL MCH (27.0-32.0) pg MCHC (32.0-37.0) g/dL RDW (11.5-15.5) % D-Dimer (<0.60) mg/L FEU Sodium (137-145) mmol/L BUN (7-17) mg/dL BUN/Creatinine Ratio (12.00-20.00) Ratio Glucose (74-99) mg/dL Magnesium (1.5-2.4) mg/dL Albumin (3.8-4.9) g/dL Albumin/Globulin Ratio (1.60-3.17) g/dL Procalcitonin 0.19 H (0.02-0.09) ng/mL Urine Appearance (Clear) Urine Protein (Negative) Urine Ketones (Negative) Ur Leukocyte Esterase (Negative) Urine Mucus (None) /hpf Chest x-ray: report reviewed Assessment and Plan (1) Pneumonia Current Visit: Yes Status: Acute Priority: High Code(s): J18.9 - PNEUMONIA, UNSPECIFIED ORGANISM SNOMED Code(s): 127539823 (2) Ovarian cancer Current Visit: Yes Status: Acute Priority: High Code(s): C56.9 - MALIGNANT NEOPLASM OF UNSPECIFIED OVARY SNOMED Code(s): 392365192 Plan: Metastatic ovarian adenocarcinoma: -She currently is following with Dr. Thibodeaux and Dr. Cerda. She completed 7 cycles of Doxil/carbo in February 2022, and started maintenance Zejula 05/2022. -CT CAP from 07/12/22 showed scattered abdominal lymphadenopathy and new right middle lobe 14 mm nodule with soft tissue around the right pulmonary hilum and extends along right trachea. PET scan on 07/23/2022 showed pulmonary mediastinal lymphadenopathy, lower neck lymphadenopathy, intra-abdominal lymphadenopathy including mesentery, gastrohepatic ligament and gisele hepatis. Findings likely relating to ovarian cancer, as pulmonary nodule demonstrated FDG activity below background levels. -Pericardial fluid and pericardium biopsy obtained 08/05, were positive for metastatic ovarian carcinoma. -Due to progressing respiratory symptoms Zejula was discontinued approx 3 weeks ago. She has an upcoming appointment with Dr. Thibodeaux to discuss further treatment options, and per pt she was told that she will likely have to go back on chemotherapy. -F/u with primary oncologist upon discharge Pneumonia: -Chest x-ray revealed possible background COPD and interstitial densities present. Patient was started on Rocephin, azithromycin, IV steroids and breathing treatments. Reporting improvement in symptoms, 96% on 2L nasal cannula. -ID and pulmonology consulted. -Influenza, RSV, COVID negative. Blood, sputum, and urine cultures ordered. -WBC 6.4, ANC 5.0. attests: I have performed H&P and developed impression and plan of care for patient, discussed with dictator. I agree with dictated note, documented as a scribe
[2022-10-05] MEDS: MAGNESIUM OXIDE 400 MG TAB PO SCH (16:09)
--- NOTE | 2022-10-05 16:58 | P.PN ---
Subjective Progress Note Date: 10/05/22 Saloni Dent, is a 57-year-old female who presented to [facility] emergency room with a chief complaint of worsening shortness of breath. Patient has a known history of ovarian cancer diagnosed 14 years ago she has been maintained on chemotherapy in the past, recently she was maintained on Zeluja, which was stopped about 3 weeks ago by her oncologist Dr. Portillo, due to side effect of lung inflammation. Patient has been complaining of cough and shortness of breath. However his symptoms have been worse in the last few days. Patient had previous admission with shortness of breath at that time she had evidence of pericardial effusion, she underwent pericardial window. She also had a previous admission was urinary tract infection with severe sepsis. She was evaluated in the emergency room vital examination on presentation revealed a temperature of 97.9 heart rate 117 respiration 26 blood pressure 108/64 pulse ox 94% on room air, shortly afterwards patient had a temperature of 102.1 Laboratory data revealed a white blood count of 9.1 hemoglobin 11.6 platelet count 279 sodium 135 potassium 3.6 chloride 99 CO2 26 BUN 6 creatinine 0.67 urine analysis revealed cloudy urine with positive leukocyte esterase and positive mucus Testing in the emergency room revealed chest x-ray revealed nonspecific prominent lung markings. On 09/30/2022 patient underwent a computed tomography scan of the chest abdomen and pelvis which revealed improving mesenteric lymphadenopathy right medial lung field density and right hilar adenopathy versus mass encasing the right middle and lower lobe bronchi. Patient was admitted to medical floor for further evaluation and treatment On 10/05/2022 patient was seen and examined on the medical floor she is alert and oriented 3 in no apparent distress, fever has subsided, patient is still complaining of significant cough or shortness of breath is improving, otherwise she denies any complaints there is no chest pain no headache or dizziness no nausea or vomiting no abdominal pain and no urinary symptoms. Objective - Vital Signs Vital signs: Vital Signs Temp 98.2 F 10/05/22 11:28 Pulse 96 10/05/22 15:57 Resp 16 10/05/22 11:28 BP 119/74 10/05/22 11:28 Pulse Ox 94 L 10/05/22 11:28 FiO2 Intake & Output 10/04/22 10/05/22 10/05/22 18:59 06:59 18:59 Intake Total 240 Balance 240 Weight 88.451 kg 88.451 kg Intake: Oral 240 Other: # Voids 1 - Exam In general patient is alert and oriented x 3 in no distress HEENT head normocephalic and atraumatic Neck is supple no JVD no goiter no lymphadenopathy no carotid bruit Chest examination reveals a scattered crackles bilaterally with wheezing Cardiac exam reveals regular heart sounds S1 and S2 no gallops no murmurs Abdomen is soft nontender no organomegaly with normal bowel sounds Extremity exam reveals no edema no cyanosis or clubbing Neurological examination reveals no gross focal deficits - Labs CBC & Chem 7: 10/05/22 05:55 10/05/22 05:55 Labs: Abnormal Lab Results - Last 24 Hours (Table) 10/04/22 10/04/22 10/05/22 Range/Units 16:31 18:31 05:55 RBC 2.99 L (4.10-5.20) X 10*6/uL Hgb 9.8 L (12.0-15.0) g/dL Hct 31.5 L (37.2-46.3) % MCV 105.4 H (80.0-97.0) fL MCH 32.8 H (27.0-32.0) pg MCHC 31.1 L (32.0-37.0) g/dL RDW 15.5 H (11.5-14.5) % Immature Gran # 0.06 H (0.00-0.04) X 10*3/uL Lymphocytes # 0.70 L (0.90-5.00) X 10*3/uL D-Dimer 1.00 H (<0.60) mg/L FEU BUN (9.0-27.0) mg/dL BUN/Creatinine Ratio (12.00-20.00) Ratio Glucose (70-110) mg/dL Magnesium (1.5-2.4) mg/dL Albumin (3.8-4.9) g/dL Albumin/Globulin Ratio (1.60-3.17) g/dL Procalcitonin (0.02-0.09) ng/mL Urine Appearance Cloudy H (Clear) Urine Protein 2+ H (Negative) Urine Ketones Trace H (Negative) Ur Leukocyte Esterase Moderate H (Negative) Urine Mucus Moderate H (None) /hpf 10/05/22 10/05/22 Range/Units 05:55 05:55 RBC (4.10-5.20) X 10*6/uL Hgb (12.0-15.0) g/dL Hct (37.2-46.3) % MCV (80.0-97.0) fL MCH (27.0-32.0) pg MCHC (32.0-37.0) g/dL RDW (11.5-14.5) % Immature Gran # (0.00-0.04) X 10*3/uL Lymphocytes # (0.90-5.00) X 10*3/uL D-Dimer (<0.60) mg/L FEU BUN 7.6 L (9.0-27.0) mg/dL BUN/Creatinine Ratio 10.86 L (12.00-20.00) Ratio Glucose 138 H (70-110) mg/dL Magnesium 1.4 L (1.5-2.4) mg/dL Albumin 3.6 L (3.8-4.9) g/dL Albumin/Globulin Ratio 1.29 L (1.60-3.17) g/dL Procalcitonin 0.19 H (0.02-0.09) ng/mL Urine Appearance (Clear) Urine Protein (Negative) Urine Ketones (Negative) Ur Leukocyte Esterase (Negative) Urine Mucus (None) /hpf Assessment and Plan Plan: Sepsis on admission as evidenced by tachycardia, tachypnea, and fever of 102.1 Evidence of urinary tract infection Underlying history of metastatic ovarian cancer Recent treatment with Zeluja, for metastatic ovarian cancer, medication was stop ped by her oncologist Dr. Thibodeaux due to side effect of lung inflammation Recent history of pericardial effusion with pericardial window a few months ago At this time patient will be admitted to telemetry floor She was started on IV Rocephin and IV Zithromax in the emergency room Urine culture and blood culture were ordered Will check d-dimer, Home medications reviewed and reordered Infectious disease pulmonary and oncology consultation requested For DVT prophylaxis will add Lovenox Prognosis is guarded will follow closely
--- NOTE | 2022-10-05 19:18 | P.CONS ---
History of Present Illness - Reason for Consult Consult date: 10/05/22 Sepsis Requesting physician: Narciso Palomo - Chief Complaint Increasing cough and shortness of breath x one day - History of Present Illness Patient is a 57-year-old female with a past medical history significant for metastatic ovarian cancer with initial diagnosis in 2008 s/p total abdominal hysterectomy and bilateral significant nephrectomy and systemic chemotherapy patient did have a recurrence in 2019 and has been placed on Gemzar, patient apparently started having a cough which has been attributed to the Gemzar and apparently patient mentioned that over the last few days the patient cough has been getting worse has been mostly dry in nature unable to b ring up any sputum did have some chest pressure but no significant pain no URI symptoms some nausea but no vomiting no abdominal pain or any diarrhea with worsening cough the patient did presented to [facility] ER the patient was noted to be febrile with temperature of 102.1 degrees for night patient was hypoxic with O2 sats of 32% currently on 2 L nasal cannula patient did have a normal white count in the kidney function was normal liver enzymes are normal influenza RSV and COVID testing was negative as well as urine for Legionella antigen negative patient did have a chest x-ray nonspecific prominent lung markings remain essentially unchanged without focal consolidation repeat chest x-ray done this morning background COPD interstitial densities present consider bronchitis or atypical pneumonias patient is currently being treated with the Rocephin and azithromycin along with steroids infectious disease was consulted for further management of antibiotic therapy Review of Systems Positive point and negatives has been mentioned in the HPI, complete review of systems was performed and all other systems are negative Past Medical History Past Medical History: Cancer Additional Past Medical History / Comment(s): hx ovarian cancer Reoccurence ovarian cancer August 2021, recent CT that showed inflammation pressing on trachea, no current treatment History of Any Multi-Drug Resistant Organisms: None Reported Past Surgical History: Bowel Resection, Cholecystectomy, Hernia Repair, Hysterectomy Past Anesthesia/Blood Transfusion Reactions: No Reported Reaction Past Psychological History: No Psychological Hx Reported Smoking Status: Former smoker Past Alcohol Use History: None Reported Past Drug Use History: None Reported - Past Family History Father History Unknown: Yes Family Medical History: Hypertension, Myocardial Infarction ([place]) Mother Family Medical History: Diabetes Mellitus, Hypertension Medications and Allergies Home Medications Medication Instructions Recorded Confirmed Type Astragalus Root 2 cap PO Q3H 10/04/22 10/04/22 History Cetirizine HCl [Zyrtec] 10 mg PO HS 10/04/22 10/04/22 History Doterra Copaiba 2 cap PO HS 10/04/22 10/04/22 History Doterra On Guard 2 cap PO DAILY 10/04/22 10/04/22 History Famotidine 20 mg PO BID 10/04/22 10/04/22 History Fluticasone Nasal [place] [Flonase 1 spr EA NOSTRIL BID 10/04/22 10/04/22 History Nasal [place]] Magnesium Taurate 1 cap PO HS 10/04/22 10/04/22 History Benzonatate [Tessalon Perles] 200 mg PO TID cap 10/07/22 Rx Budesonide [Pulmicort] 0.5 mg INHALATION RT-BID ml 10/07/22 Rx Formoterol Fumarate [Perforomist] 20 mcg INHALATION RT-BID ml 10/07/22 Rx Ipratropium-Albuterol Nebulize 3 ml INHALATION RT-QID each 10/07/22 Rx [Duoneb 0.5 mg-3 mg/3 ml Soln] Nystatin 100,000 Unit/ml Susp 500,000 unit PO QID ml 10/07/22 Rx [Mycostatin Oral Susp] cefUROXime axetiL [Cefuroxime] 500 mg PO BID 5 Days #10 tab 10/07/22 Rx predniSONE 10 mg PO DIRECTED 16 Days #40 10/07/22 Rx tab Allergies Allergy/AdvReac Type Severity Reaction Status Date / Time carboplatin Allergy Anaphylaxis Verified 10/04/22 16:20 hydromorphone [From Dilaudid] AdvReac falls Verified 10/04/22 16:20 asleep hard to arouse Physical Exam Vitals: Vital Signs Temp Pulse Pulse Resp BP BP Pulse Ox 10/05/22 08:27 100 10/05/22 08:08 101 H 96 10/05/22 07:14 99.1 F 102 H 18 125/77 10/05/22 01:42 99 F 97 18 99/56 96 10/04/22 23:34 98.1 F 103 H 16 123/77 97 10/04/22 23:00 98.0 F 91 18 122/86 97 10/04/22 20:24 106 H 20 138/86 96 10/04/22 15:24 78 18 137/95 95 10/04/22 13:20 102.1 F H 113 H 18 140/80 92 L 10/04/22 13:13 28 H 10/04/22 13:07 97.9 F 117 H 26 H 108/64 94 L Intake and Output 10/04/22 10/05/22 10/05/22 22:59 06:59 14:59 Intake Total 240 Balance 240 Intake: Oral 240 Other: # Voids 1 Weight 88.451 kg GENERAL DESCRIPTION: Middle-aged female lying in bed, no distress. No tachypnea or accessory muscle of respiration use. HEENT: Shows Pallor , no scleral icterus. Oral mucous membrane is dry. NECK: Trachea central, no thyromegaly. LUNGS: Unlabored breathing. Coarse breath sounds bilaterally and occasional wheeze. HEART: S1, S2, regular rate and rhythm. No loud murmur ABDOMEN: Soft, no tenderness , guarding or rigidity, no organomegaly EXTREMITIES: No edema of feet. SKIN: No rash, no masses palpable. NEUROLOGICAL: The patient is awake, alert, oriented x3, mood and affect normal. Results CBC & Chem 7: 10/07/22 05:16 10/07/22 05:16 Labs: Abnormal Lab Results - Last 24 Hours (Table) 10/04/22 10/04/22 10/04/22 Range/Units 13:31 13:31 16:31 RBC 3.38 L (3.80-5.40) m/uL Hgb (12.0-15.0) g/dL Hct (37.2-46.3) % MCV 102.1 H (80.0-100.0) fL MCH (27.0-32.0) pg MCHC (32.0-37.0) g/dL RDW 15.9 H (11.5-15.5) % D-Dimer (<0.60) mg/L FEU Sodium 135 L (137-145) mmol/L BUN 6 L (7-17) mg/dL BUN/Creatinine Ratio (12.00-20.00) Ratio Glucose 130 H (74-99) mg/dL Magnesium (1.5-2.4) mg/dL Albumin (3.8-4.9) g/dL Albumin/Globulin Ratio (1.60-3.17) g/dL Procalcitonin (0.02-0.09) ng/mL Urine Appearance Cloudy H (Clear) Urine Protein 2+ H (Negative) Urine Ketones Trace H (Negative) Ur Leukocyte Esterase Moderate H (Negative) Urine Mucus Moderate H (None) /hpf 10/04/22 10/05/22 10/05/22 Range/Units 18:31 05:55 05:55 RBC 2.99 L (3.80-5.40) m/uL Hgb 9.8 L (12.0-15.0) g/dL Hct 31.5 L (37.2-46.3) % MCV 105.4 H (80.0-100.0) fL MCH 32.8 H (27.0-32.0) pg MCHC 31.1 L (32.0-37.0) g/dL RDW 15.5 H (11.5-15.5) % D-Dimer 1.00 H (<0.60) mg/L FEU Sodium (137-145) mmol/L BUN 7.6 L (7-17) mg/dL BUN/Creatinine Ratio 10.86 L (12.00-20.00) Ratio Glucose 138 H (74-99) mg/dL Magnesium 1.4 L (1.5-2.4) mg/dL Albumin 3.6 L (3.8-4.9) g/dL Albumin/Globulin Ratio 1.29 L (1.60-3.17) g/dL Procalcitonin (0.02-0.09) ng/mL Urine Appearance (Clear) Urine Protein (Negative) Urine Ketones (Negative) Ur Leukocyte Esterase (Negative) Urine Mucus (None) /hpf 10/05/22 Range/Units 05:55 RBC (3.80-5.40) m/uL Hgb (12.0-15.0) g/dL Hct (37.2-46.3) % MCV (80.0-100.0) fL MCH (27.0-32.0) pg MCHC (32.0-37.0) g/dL RDW (11.5-15.5) % D-Dimer (<0.60) mg/L FEU Sodium (137-145) mmol/L BUN (7-17) mg/dL BUN/Creatinine Ratio (12.00-20.00) Ratio Glucose (74-99) mg/dL Magnesium (1.5-2.4) mg/dL Albumin (3.8-4.9) g/dL Albumin/Globulin Ratio (1.60-3.17) g/dL Procalcitonin 0.19 H (0.02-0.09) ng/mL Urine Appearance (Clear) Urine Protein (Negative) Urine Ketones (Negative) Ur Leukocyte Esterase (Negative) Urine Mucus (None) /hpf Assessment and Plan (1) Pneumonia Status: Acute Priority: High Code(s): J18.9 - PNEUMONIA, UNSPECIFIED ORGANISM SNOMED Code(s): 635720157 Plan: 1patient presented to hospital predominantly with respiratory symptoms specially with a cough which has been mostly dry in nature has been chronic for her but did show acute worsening and the patient was noticed to be febrile on presentation to the hospital x-ray however did show some COPD changes but no focal consolidation and some interstitial infiltrate concern for possible atypical pneumonia work-up so far negative including negative RSV influenza and COVID testing and urine for Legionella antigen was negative, however the patient seem to have shown clinical improvement with a combination of steroids and antibiotics 2-we will obtain a CRP and a procalcitonin try to bring sputum if possible 3-continue Rocephin and Zithromax We will follow on clinical condition and cultures to further adjust medication if needed Thank you for this consultation we will follow the patient along with you Time with Patient: Greater than 30
[2022-10-06] MEDS: methylPREDNISolone SOD SUCCI 125 MG/2 ML VIAL IV SCH ×4 (00:33→17:50)
[2022-10-06] MEDS: SYMBICORT 160-4.5 MCG INHALER INHALATION SCH ×2 (08:45→20:36)
[2022-10-06] MEDS: IPRATROPIUM-ALBUTEROL 3 ML NEB INHALATION PRN ×4 (08:45→20:36)
[2022-10-06] MEDS: MAGNESIUM OXIDE 400 MG TAB PO SCH ×2 (09:06→20:31)
[2022-10-06] MEDS: FAMOTIDINE 20 MG TAB PO SCH ×2 (09:06→20:31)
[2022-10-06] MEDS: AZITHROMYCIN 500 MG TAB PO SCH (09:06)
[2022-10-06] MEDS: NYSTATIN 100,000 UNIT/ML SUSP 500,000 UNIT/5 ML CUP PO SCH ×3 (09:07→17:51)
[2022-10-06] MEDS: FLUTICASONE 50MCG/SPRAY NASAL 16GM EA NOSTRIL SCH ×2 (09:08→20:32)
[2022-10-06 10:48] LABS: Basophils # (A) 0.02 X 10*3/uL (0.00-0.10); Basophils % (A) 0.3 %; Eosinophils # (A) 0.01 X 10*3/uL (0.04-0.35); Eosinophils % (A) 0.2 %; HGB 9.3 g/dL (12.0-15.0); Lymphocytes # (A) 0.67 X 10*3/uL (0.90-5.00); Lymphocytes % (A) 10.7 %; MCH 33.6 pg (27.0-32.0); MCHC 32.1 g/dL (32.0-37.0); MCV 104.7 fL (80.0-97.0); Mean Platelet Volume 9.9 fL (9.5-12.2); Monocytes # (A) 0.13 X 10*3/uL (0.20-1.00); Monocytes % (A) 2.1 %; NRBC Per 100 WBC 0 /100 WBCS (0.0-0.0); Neutrophils # (A) 5.35 X 10*3/uL (1.80-7.70); Neutrophils % (A) 85.7 %; Platelet Count 186 X 10*3/uL (140-440); RBC 2.77 X 10*6/uL (4.10-5.20); RDW 14.9 % (11.5-14.5); WBC 6.24 X 10*3/uL (4.50-10.00)
--- NOTE | 2022-10-06 10:59 | P.PN ---
Subjective Progress Note Date: 10/06/22 Saloni Dent, is a 57-year-old female who presented to [facility] emergency room with a chief complaint of worsening shortness of breath. Patient has a known history of ovarian cancer diagnosed 14 years ago she has been maintained on chemotherapy in the past, recently she was maintained on Zeluja, which was stopped about 3 weeks ago by her oncologist Dr. Portillo, due to side effect of lung inflammation. Patient has been complaining of cough and shortness of breath. However his symptoms have been worse in the last few days. Patient had previous admission with shortness of breath at that time she had evidence of pericardial effusion, she underwent pericardial window. She also had a previous admission was urinary tract infection with severe sepsis. She was evaluated in the emergency room vital examination on presentation revealed a temperature of 97.9 heart rate 117 respiration 26 blood pressure 108/64 pulse ox 94% on room air, shortly afterwards patient had a temperature of 102.1 Laboratory data revealed a white blood count of 9.1 hemoglobin 11.6 platelet count 279 sodium 135 potassium 3.6 chloride 99 CO2 26 BUN 6 creatinine 0.67 urine analysis revealed cloudy urine with positive leukocyte esterase and positive mucus Testing in the emergency room revealed chest x-ray revealed nonspecific prominent lung markings. On 09/30/2022 patient underwent a computed tomography scan of the chest abdomen and pelvis which revealed improving mesenteric lymphadenopathy right medial lung field density and right hilar adenopathy versus mass encasing the right middle and lower lobe bronchi. Patient was admitted to medical floor for further evaluation and treatment On 10/05/2022 patient was seen and examined on the medical floor she is alert and oriented 3 in no apparent distress, fever has subsided, patient is still complaining of significant cough or shortness of breath is improving, otherwise she denies any complaints there is no chest pain no headache or dizziness no nausea or vomiting no abdominal pain and no urinary symptoms. On 10/06/2022 patient is alert and oriented 3. Patient reports improvement with shortness of breath. Patient still having occasional cough. Patient remains on IV steroids DuoNeb breathing treatments and antibiotic. Infectious disease, oncology and pulmonary services are following. Current vital signs temp 97.8, heart rate 98, respiratory rate 18, blood pressure 126/75 with a pulse ox 93% on 2 L. Discussed with nursing staff to wean off oxygen Objective - Vital Signs Vital signs: Vital Signs Temp 97.8 F 10/06/22 07:24 Pulse 90 10/06/22 08:58 Resp 18 10/06/22 07:24 BP 126/75 10/06/22 07:24 Pulse Ox 93 L 10/06/22 08:45 FiO2 Intake & Output 10/05/22 10/06/22 10/06/22 18:59 06:59 18:59 Intake Total 50 550 Balance 50 550 Intake: Intake, IV Titration 50 50 Amount cefTRIAXone 2 gm In 50 50 Sodium Chloride 0.9% 50 ml @ 100 mls/hr IVPB Q24HR [facility] Rx#:[id number] Oral 500 Other: # Voids 1 - Exam In general patient is alert and oriented x 3 in no distress HEENT head normocephalic and atraumatic Neck is supple no JVD no goiter no lymphadenopathy no carotid bruit Chest examination reveals a scattered crackles bilaterally with wheezing Cardiac exam reveals regular heart sounds S1 and S2 no gallops no murmurs Abdomen is soft nontender no organomegaly with normal bowel sounds Extremity exam reveals no edema no cyanosis or clubbing Neurological examination reveals no gross focal deficits - Labs CBC & Chem 7: 10/06/22 06:09 10/05/22 05:55 Labs: Abnormal Lab Results - Last 24 Hours (Table) 10/06/22 Range/Units 06:09 RBC 2.77 L (4.10-5.20) X 10*6/uL Hgb 9.3 L (12.0-15.0) g/dL Hct 29.0 L (37.2-46.3) % MCV 104.7 H (80.0-97.0) fL MCH 33.6 H (27.0-32.0) pg RDW 14.9 H (11.5-14.5) % Immature Gran # 0.06 H (0.00-0.04) X 10*3/uL Lymphocytes # 0.67 L (0.90-5.00) X 10*3/uL Monocytes # 0.13 L (0.20-1.00) X 10*3/uL Eosinophils # 0.01 L (0.04-0.35) X 10*3/uL Microbiology - Last 24 Hours (Table) 10/04/22 13:31 Blood Culture - Preliminary Blood 10/04/22 13:31 Blood Culture - Preliminary Blood Assessment and Plan Plan: Sepsis on admission as evidenced by tachycardia, tachypnea, and fever of 102.1 Evidence of urinary tract infection Underlying history of metastatic ovarian cancer Recent treatment with Zeluja, for metastatic ovarian cancer, medication was stopped by her oncologist Dr. Thibodeaux due to side effect of lung inflammation Recent history of pericardial effusion with pericardial window a few months ago At this time patient will be admitted to telemetry floor She was started on IV Rocephin and IV Zithromax in the emergency room Urine culture and blood culture were ordered Will check d-dimer, Home medications reviewed and reordered Infectious disease pulmonary and oncology consultation requested For DVT prophylaxis will add Lovenox Prognosis is guarded will follow closely
[2022-10-06 11:05] LABS: African American GFR (CKD) 112.3 (60.0-200.0); Albumin 3.6 g/dL (3.8-4.9); Albumin/Globulin Ratio 1.24 (1.60-3.17); Anion Gap 11.7 mmol/L (10.00-18.00); BUN/Creat Ratio 13.86 Ratio (12.00-20.00); Blood Urea Nitrogen 9.7 mg/dL (9.0-27.0); Calcium 9.1 mg/dL (8.7-10.3); Carbon Dioxide 23.3 mmol/L (20.0-27.5); Globulin 2.9 g/dL (1.6-3.3); Non-African American GFR(CKD) 96.9 (60.0-200.0); Potassium 4.1 mmol/L (3.5-5.5); Total Bilirubin 0.3 mg/dL (0.30-1.20); Total Protein 6.5 g/dL (6.2-8.2)
--- NOTE | 2022-10-06 11:05 | P.PN ---
Subjective Progress Note Date: 10/06/22 I am seeing this patient in new consultation today 10/05/2022 on the general medical floor for acute on chronic shortness of breath and worsening cough. Patient is a 57-year-old white female with past medical history significant for metastatic ovarian cancer. She was originally diagnosed in June 2008. She underwent a total abdominal hysterectomy and bilateral salpingo-oophorectomy. Subsequently, she received systemic chemotherapy with carboplatinum and Taxol. Back in 2013, she was found to have pelvic recurrence and elevated CA-125 level. She underwent cytoreduction with extensive laparotomy lysis of adhesions sigmoid resection and primary reanastomosis. She completed 6 cycles of systemic chemotherapy with carboplatin. Subsequently in 2018, a colonoscopy guided biopsy of a 4 cm rectal mass showed tumor recurrence. She was restarted again on systemic chemotherapy with carboplatin. At the later stage, the patient was placed on Rucaparib , subsequent follow-up shows progressive CA 125 level and computed tomography scan demonstrated evidence of disease recurrence with new pulmonary nodules and increasing lymphadenopathy within the mediastinum and abdomen. In 2019, she was started on carboplatinum and Gemzar. The PET scan done on July 2022 showed multiple areas of mediastinal adenopathy, lower neck lymphadenopathy, intra-abdominal adenopathy including the mesentery, gastroh epatic ligament, and gisele hepatis concerning for metastatic disease. Patient did also have a recent hospital admission for a malignant pericardial effusion and window during this time. A follow-up CT of the chest, abdomen, pelvis earlier this month showed improving mesenteric lymphadenopathy with mild periaortic and retrocaval matted adenopathy, a right medial lung field density, right hilar adenopathy versus mass encasing the right middle lobe and lower lobe bronchi and vessels, and diminished pericardial effusion. Patient does report a chronic cough that was originally attributed to Gemzar induced cough/pneumonitis. She does report some improvement after discontinuation. Patient was also recently started on Zejula, and reportedly had a reaction, possibly pneumonitis. Patient follows with her oncologist Tod Downey at [facility], and is not receiving any treatment currently. Patient did come back into the hospital yesterday afternoon with chief complaint of progressive shortness of breath and persistent nonproductive cough worse over the last 24 hours. She also reports fever and chills. She denies any chest pain, hemoptysis. She denies nausea, vomiting, diarrhea, abdominal pain. She was febrile, tachypneic, tachycardic on arrival. Currently, patient is resting in bed, on 2 L nasal cannula, in no acute distress. Chest x-ray on arrival showed no focal consolidation or obvious evidence of pneumonia. Patient is empirically being covered on a combination of Rocephin and Zithromax. Blood and urine cultures are pending. urinalysis shows moderate leukocyte esterase, but she denies any urinary complaints. CBC on arrival was unremarkable. BMP on arrival was also unremarkable. D-dimer elevated but improved from recent admission. Negative for influenza, RSV, COVID-19. Vital signs are stable. The patient is seen today 10/06/2022 in follow-up on the regular medical floor. She is currently sitting up in bed. Awake and alert in no acute distress. Tayla thing quite a bit better today compared to yesterday. She feels the breathing treatments have helped her quite a bit. She is maintaining O2 saturations in the 90s on 2 L/m per nasal cannula. Follow up chest x-ray reveals evidence of COPD. Interstitial densities present consistent with possible bronchitis or atypical pneumonia. Blood cultures reveal no growth. White count 6.2. Hemoglobin 9.3. Platelets 186. Pro-calcitonin 0.19. She is continued on DuoNeb inhalations, Symbicort, Solu Medrol. Antibiotics in the form of ceftriaxone. Objective - Vital Signs Vital signs: Vital Signs Temp 97.8 F 10/06/22 07:24 Pulse 90 10/06/22 08:58 Resp 18 10/06/22 07:24 BP 126/75 10/06/22 07:24 Pulse Ox 93 L 10/06/22 08:45 FiO2 Intake & Output 10/05/22 10/06/22 10/06/22 18:59 06:59 18:59 Intake Total 50 550 Balance 50 550 Intake: Intake, IV Titration 50 50 Amount cefTRIAXone 2 gm In 50 50 Sodium Chloride 0.9% 50 ml @ 100 mls/hr IVPB Q24HR [facility] Rx#:[id number] Oral 500 Other: # Voids 1 - Exam GENERAL EXAM: Alert, pleasant 57-year-old female on 2 L nasal cannula, comfortable in no apparent distress. HEAD: Normocephalic. EYES: Normal reaction of pupils, equal size. NOSE: Clear with pink turbinates. THROAT: No erythema or exudates. NECK: No masses, no JVD. CHEST: No chest wall deformity. LUNGS: Equal air entry with no crackles, wheeze, rhonchi or dullness. CVS: S1 and S2 normal with no audible murmur, regular rhythm. ABDOMEN: No hepatosplenomegaly, normal bowel sounds, no guarding or rigidity. SPINE: No scoliosis or deformity SKIN: No rashes CENTRAL NERVOUS SYSTEM: No focal deficits, tone is normal in all 4 extremities. EXTREMITIES: There is no peripheral edema. No clubbing, no cyanosis. Peripheral pulses are intact. - Labs CBC & Chem 7: 10/06/22 06:09 10/05/22 05:55 Labs: Abnormal Lab Results - Last 24 Hours (Table) 10/06/22 Range/Units 06:09 RBC 2.77 L (4.10-5.20) X 10*6/uL Hgb 9.3 L (12.0-15.0) g/dL Hct 29.0 L (37.2-46.3) % MCV 104.7 H (80.0-97.0) fL MCH 33.6 H (27.0-32.0) pg RDW 14.9 H (11.5-14.5) % Immature Gran # 0.06 H (0.00-0.04) X 10*3/uL Lymphocytes # 0.67 L (0.90-5.00) X 10*3/uL Monocytes # 0.13 L (0.20-1.00) X 10*3/uL Eosinophils # 0.01 L (0.04-0.35) X 10*3/uL Microbiology - Last 24 Hours (Table) 10/04/22 13:31 Blood Culture - Preliminary Blood 10/04/22 13:31 Blood Culture - Preliminary Blood Assessment and Plan Assessment: Acute febrile illness, currently under investigation. Pro-calcitonin 0.19. Currently on ceftriaxone Acute hypoxic respiratory failure possibly secondary to acute bronchitis. Currently on 2 L nasal cannula. Chest x-ray on arrival showed no focal consolidation or obvious evidence of pneumonia. Negative for influenza, RSV, COVID-19. Metastatic ovarian cancer initially diagnosed back in 2008 with recurrence. Most recent chest, abdominal, pelvis CT shows improving mesenteric lymphadenopathy, mild periaortic and retrocaval matted adenopathy, right medial lung field density concerning for recurrent mass, right hilar adenopathy versus mass encasing the right middle lobe and lower lobe bronchi and vessels, and a diminished pericardial effusion. Treatment is currently on hold. 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 Number of minutes spent on the visit: 10.
--- NOTE | 2022-10-06 14:25 | P.PN ---
Subjective Progress Note Date: 10/06/22 Principal diagnosis: hx ovarian cancer At todays visit, pt is resting comfortably in bed. Pt reports significant improvement in breathing today. Breathing is even and unlabored. C/o persisting cough. No other reported complaints. Objective - Vital Signs Vital signs: Vital Signs Temp 98.8 F 10/06/22 12:57 Pulse 116 H 10/06/22 12:57 Resp 18 10/06/22 12:57 BP 143/82 10/06/22 12:57 Pulse Ox 94 L 10/06/22 12:57 FiO2 Intake & Output 10/05/22 10/06/22 10/06/22 18:59 06:59 18:59 Intake Total 50 550 Balance 50 550 Intake: Intake, IV Titration 50 50 Amount cefTRIAXone 2 gm In 50 50 Sodium Chloride 0.9% 50 ml @ 100 mls/hr IVPB Q24HR [facility] Rx#:[id number] Oral 500 Other: # Voids 1 - Constitutional General appearance: Present: average body habitus, no acute distress - EENT Eyes: Present: anicteric sclerae, EOMI ENT: Present: hearing grossly normal - Respiratory Details: breathing even and unlabored Respiratory: left: wheezing (left lung field ) - Cardiovascular Rhythm: regular Heart sounds: normal: S1, S2 Abnormal Heart Sounds: Absent: systolic murmur, diastolic murmur, rub, S3 Gallop, S4 Gallop, click, other - Integumentary Integumentary: Absent: cyanotic, rash - Neurologic Neurologic Comment(s): grossly intact - Musculoskeletal Musculoskeletal: Present: strength equal bilaterally - Psychiatric Psychiatric: Present: A&O x's 3, appropriate affect, intact judgment & insight - Labs CBC & Chem 7: 10/06/22 06:09 10/06/22 06:09 Labs: Abnormal Lab Results - Last 24 Hours (Table) 10/06/22 10/06/22 Range/Units 06:09 06:09 RBC 2.77 L (4.10-5.20) X 10*6/uL Hgb 9.3 L (12.0-15.0) g/dL Hct 29.0 L (37.2-46.3) % MCV 104.7 H (80.0-97.0) fL MCH 33.6 H (27.0-32.0) pg RDW 14.9 H (11.5-14.5) % Immature Gran # 0.06 H (0.00-0.04) X 10*3/uL Lymphocytes # 0.67 L (0.90-5.00) X 10*3/uL Monocytes # 0.13 L (0.20-1.00) X 10*3/uL Eosinophils # 0.01 L (0.04-0.35) X 10*3/uL Glucose 235 H (70-110) mg/dL Albumin 3.6 L (3.8-4.9) g/dL Albumin/Globulin Ratio 1.24 L (1.60-3.17) g/dL Microbiology - Last 24 Hours (Table) 10/04/22 13:31 Blood Culture - Preliminary Blood 10/04/22 13:31 Blood Culture - Preliminary Blood Assessment and Plan (1) Pneumonia Current Visit: Yes Status: Acute Priority: High Code(s): J18.9 - PNEUMONIA, UNSPECIFIED ORGANISM SNOMED Code(s): 921711011 (2) Ovarian cancer Current Visit: Yes Status: Acute Priority: High Code(s): C56.9 - MALIGNANT NEOPLASM OF UNSPECIFIED OVARY SNOMED Code(s): 719092934 Plan: Metastatic ovarian adenocarcinoma: -She currently is following with Dr. Thibodeaux and Dr. Cerda. She completed 7 cycles of Doxil/carbo in February 2022, and started maintenance Zejula 05/2022. -CT CAP from 07/12/22 showed scattered abdominal lymphadenopathy and new right middle lobe 14 mm nodule with soft tissue around the right pulmonary hilum and extends along right trachea. PET scan on 07/23/2022 showed pulmonary mediastinal lymphadenopathy, lower neck lymphadenopathy, intra-abdominal lymphadenopathy including mesentery, gastrohepatic ligament and gisele hepatis. Findings likely relating to ovarian cancer, as pulmonary nodule demonstrated FDG activity below background levels. -Pericardial fluid and pericardium biopsy obtained 08/05, were positive for metastatic ovarian carcinoma. -Due to progressing respiratory symptoms Zejula was discontinued approx 3 weeks ago. She has an upcoming appointment with Dr. Thibodeaux to discuss further treatment options, and per pt she was told that she will likely have to go back on chemotherapy. -F/u with primary oncologist upon discharge Pneumonia: -Chest x-ray revealed possible background COPD and interstitial densities present. Continues on Rocephin, IV steroids and breathing treatments. Reporting significant improvement in symptoms today. Afebrile -ID and pulmonology consulted. -Influenza, RSV, COVID negative. Blood cultures negative at 24 hrs, urine legionella negative, sputum culture uncollected.
[2022-10-07] MEDS: NYSTATIN 100,000 UNIT/ML SUSP 500,000 UNIT/5 ML CUP PO SCH ×3 (00:01→14:37)
[2022-10-07] MEDS: methylPREDNISolone SOD SUCCI 125 MG/2 ML VIAL IV SCH ×2 (05:50)
[2022-10-07] MEDS: IPRATROPIUM-ALBUTEROL 3 ML NEB INHALATION SCH ×3 (08:08→15:44)
[2022-10-07] MEDS: SYMBICORT 160-4.5 MCG INHALER INHALATION SCH (08:09)
[2022-10-07] MEDS ORDERED: ACETAMINOPHEN TAB 325 MG TAB PO PRN (08:28)
[2022-10-07] MEDS: MAGNESIUM OXIDE 400 MG TAB PO SCH (08:38)
[2022-10-07] MEDS: FAMOTIDINE 20 MG TAB PO SCH (08:38)
[2022-10-07] MEDS: FLUTICASONE 50MCG/SPRAY NASAL 16GM EA NOSTRIL SCH (08:40)
[2022-10-07 08:51] LABS: Basophils # (A) 0.01 X 10*3/uL (0.00-0.10); Basophils % (A) 0.1 %; Eosinophils # (A) 0 X 10*3/uL (0.04-0.35); Eosinophils % (A) 0 %; HCT 28.6 % (37.2-46.3); HGB 9.3 g/dL (12.0-15.0); Immature Grans, Automated 1.5 %; Lymphocytes # (A) 0.84 X 10*3/uL (0.90-5.00); Lymphocytes % (A) 6.3 %; MCH 33.9 pg (27.0-32.0); MCHC 32.5 g/dL (32.0-37.0); MCV 104.4 fL (80.0-97.0); Mean Platelet Volume 9.6 fL (9.5-12.2); Monocytes # (A) 0.27 X 10*3/uL (0.20-1.00); NRBC Per 100 WBC 0 /100 WBCS (0.0-0.0); Neutrophils % (A) 90.1 %; Platelet Count 207 X 10*3/uL (140-440); RBC 2.74 X 10*6/uL (4.10-5.20); WBC 13.42 X 10*3/uL (4.50-10.00)
[2022-10-07] MEDS ORDERED: BENZONATATE 100 MG CAP PO SCH ×2 (09:00)
[2022-10-07] MEDS ORDERED: predniSONE 20 MG TAB PO SCH (09:00)
[2022-10-07 09:07] LABS: African American GFR (CKD) 113.6 (60.0-200.0); Albumin 3.5 g/dL (3.8-4.9); Albumin/Globulin Ratio 1.25 (1.60-3.17); Anion Gap 12.2 mmol/L (10.00-18.00); BUN/Creat Ratio 17.19 Ratio (12.00-20.00); Blood Urea Nitrogen 11.6 mg/dL (9.0-27.0); Calcium 9.2 mg/dL (8.7-10.3); Carbon Dioxide 24.4 mmol/L (20.0-27.5); Globulin 2.8 g/dL (1.6-3.3); Potassium 4.2 mmol/L (3.5-5.5); Total Bilirubin 0.2 mg/dL (0.30-1.20); Total Protein 6.2 g/dL (6.2-8.2)
--- NOTE | 2022-10-07 11:07 | P.PN ---
Subjective Progress Note Date: 10/07/22 I am seeing this patient in new consultation today 10/05/2022 on the general medical floor for acute on chronic shortness of breath and worsening cough. Patient is a 57-year-old white female with past medical history significant for metastatic ovarian cancer. She was originally diagnosed in June 2008. She underwent a total abdominal hysterectomy and bilateral salpingo-oophorectomy. Subsequently, she received systemic chemotherapy with carboplatinum and Taxol. Back in 2013, she was found to have pelvic recurrence and elevated CA-125 level. She underwent cytoreduction with extensive laparotomy lysis of adhesions sigmoid resection and primary reanastomosis. She completed 6 cycles of systemic chemotherapy with carboplatin. Subsequently in 2018, a colonoscopy guided biopsy of a 4 cm rectal mass showed tumor recurrence. She was restarted again on systemic chemotherapy with carboplatin. At the later stage, the patient was placed on Rucaparib , subsequent follow-up shows progressive CA 125 level and computed tomography scan demonstrated evidence of disease recurrence with new pulmonary nodules and increasing lymphadenopathy within the mediastinum and abdomen. In 2019, she was started on carboplatinum and Gemzar. The PET scan done on July 2022 showed multiple areas of mediastinal adenopathy, lower neck lymphadenopathy, intra-abdominal adenopathy including the mesentery, gastroh epatic ligament, and gisele hepatis concerning for metastatic disease. Patient did also have a recent hospital admission for a malignant pericardial effusion and window during this time. A follow-up CT of the chest, abdomen, pelvis earlier this month showed improving mesenteric lymphadenopathy with mild periaortic and retrocaval matted adenopathy, a right medial lung field density, right hilar adenopathy versus mass encasing the right middle lobe and lower lobe bronchi and vessels, and diminished pericardial effusion. Patient does report a chronic cough that was originally attributed to Gemzar induced cough/pneumonitis. She does report some improvement after discontinuation. Patient was also recently started on Zejula, and reportedly had a reaction, possibly pneumonitis. Patient follows with her oncologist Tod Downey at [facility], and is not receiving any treatment currently. Patient did come back into the hospital yesterday afternoon with chief complaint of progressive shortness of breath and persistent nonproductive cough worse over the last 24 hours. She also reports fever and chills. She denies any chest pain, hemoptysis. She denies nausea, vomiting, diarrhea, abdominal pain. She was febrile, tachypneic, tachycardic on arrival. Currently, patient is resting in bed, on 2 L nasal cannula, in no acute distress. Chest x-ray on arrival showed no focal consolidation or obvious evidence of pneumonia. Patient is empirically being covered on a combination of Rocephin and Zithromax. Blood and urine cultures are pending. urinalysis shows moderate leukocyte esterase, but she denies any urinary complaints. CBC on arrival was unremarkable. BMP on arrival was also unremarkable. D-dimer elevated but improved from recent admission. Negative for influenza, RSV, COVID-19. Vital signs are stable. The patient is seen today 10/06/2022 in follow-up on the regular medical floor. She is currently sitting up in bed. Awake and alert in no acute distress. Tayla thing quite a bit better today compared to yesterday. She feels the breathing treatments have helped her quite a bit. She is maintaining O2 saturations in the 90s on 2 L/m per nasal cannula. Follow up chest x-ray reveals evidence of COPD. Interstitial densities present consistent with possible bronchitis or atypical pneumonia. Blood cultures reveal no growth. White count 6.2. Hemoglobin 9.3. Platelets 186. Pro-calcitonin 0.19. She is continued on DuoNeb inhalations, Symbicort, Solu Medrol. Antibiotics in the form of ceftriaxone. The patient is seen today 10/07/2022 in follow-up on the regular medical floor. She is awake and alert in no acute distress. Breathing a bit better today compared to yesterday. She has a dry nonproductive cough. Maintaining good O2 saturations in the 90s on room air. She's afebrile. Hemodynamically stable. White count 13.4. Hemoglobin 9.3. Platelets 207. Sodium 134. Potassium 4.2. Bicarb 24. BUN 11. Creatinine 0.76. Glucose 296. AST 10. ALT 12. She is continued on DuoNeb inhalations, Symbicort, IV Solu-Medrol. Empiric antibiotics in the form of ceftriaxone. Objective - Vital Signs Vital signs: Vital Signs Temp 97.4 F L 10/07/22 07:55 Pulse 92 10/07/22 08:23 Resp 16 10/07/22 07:55 BP 143/78 10/07/22 07:55 Pulse Ox 96 10/07/22 08:09 FiO2 Intake & Output 10/06/22 10/07/22 10/07/22 18:59 06:59 18:59 Intake Total 400 400 Balance 400 400 Intake: Oral 400 400 - Exam GENERAL EXAM: Alert, 57-year-old female, on room air, comfortable in no apparent distress. HEAD: Normocephalic. EYES: Normal reaction of pupils, equal size. NOSE: Clear with pink turbinates. THROAT: No erythema or exudates. NECK: No masses, no JVD. CHEST: No chest wall deformity. LUNGS: Equal air entry with no crackles, wheeze, rhonchi or dullness. CVS: S1 and S2 normal with no audible murmur, regular rhythm. ABDOMEN: No hepatosplenomegaly, normal bowel sounds, no guarding or rigidity. SPINE: No scoliosis or deformity SKIN: No rashes CENTRAL NERVOUS SYSTEM: No focal deficits, tone is normal in all 4 extremities. EXTREMITIES: There is no peripheral edema. No clubbing, no cyanosis. Peripheral pulses are intact. - Labs CBC & Chem 7: 10/07/22 05:16 10/07/22 05:16 Labs: Abnormal Lab Results - Last 24 Hours (Table) 10/06/22 10/07/22 10/07/22 Range/Units 06:09 05:16 05:16 WBC 13.42 H (4.50-10.00) X 10*3/uL RBC 2.74 L (4.10-5.20) X 10*6/uL Hgb 9.3 L (12.0-15.0) g/dL Hct 28.6 L (37.2-46.3) % MCV 104.4 H (80.0-97.0) fL MCH 33.9 H (27.0-32.0) pg RDW 15.0 H (11.5-14.5) % Immature Gran # 0.20 H (0.00-0.04) X 10*3/uL Neutrophils # 12.10 H (1.80-7.70) X 10*3/uL Lymphocytes # 0.84 L (0.90-5.00) X 10*3/uL Eosinophils # 0 L (0.04-0.35) X 10*3/uL Sodium 134 L (135-145) mmol/L Glucose 235 H 296 H (70-110) mg/dL Total Bilirubin 0.20 L (0.30-1.20) mg/dL AST 10 L (13-35) U/L Albumin 3.6 L 3.5 L (3.8-4.9) g/dL Albumin/Globulin Ratio 1.24 L 1.25 L (1.60-3.17) g/dL Microbiology - Last 24 Hours (Table) 10/04/22 13:31 Blood Culture - Preliminary Blood 10/04/22 13:31 Blood Culture - Preliminary Blood Assessment and Plan Assessment: Acute febrile illness, currently under investigation. Pro-calcitonin 0.19. Currently on ceftriaxone Acute hypoxic respiratory failure possibly secondary to acute bronchitis. Recovered and on room air. Chest x-ray on arrival showed no focal consolidation or obvious evidence of pneumonia. Negative for influenza, RSV, COVID-19. Metastatic ovarian cancer initially diagnosed back in 2008 with recurrence. Most recent chest, abdominal, pelvis CT shows improving mesenteric lymphadenop athy, mild periaortic and retrocaval matted adenopathy, right medial lung field density concerning for recurrent mass, right hilar adenopathy versus mass encasing the right middle lobe and lower lobe bronchi and vessels, and a diminished pericardial effusion. Treatment is currently on hold. 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 Hansen on 10/13/2022 I have personally seen and examined the patient, performed the documentation and the assessment and plan as written. Number of minutes spent on the visit: 10.
--- NOTE | 2022-10-07 13:22 | P.PN ---
Subjective Progress Note Date: 10/07/22 Principal diagnosis: hx ovarian cancer At todays visit, pt is resting comfortably in bed. Pt reports continued improvement in breathing today. Breathing is even and unlabored. No other reported complaints. Objective - Vital Signs Vital signs: Vital Signs Temp 97.4 F L 10/07/22 07:55 Pulse 92 10/07/22 11:47 Resp 16 10/07/22 07:55 BP 143/78 10/07/22 07:55 Pulse Ox 96 10/07/22 08:09 FiO2 Intake & Output 10/06/22 10/07/22 10/07/22 18:59 06:59 18:59 Intake Total 400 400 Balance 400 400 Intake: Oral 400 400 - Constitutional General appearance: Present: average body habitus, no acute distress - EENT Eyes: Present: anicteric sclerae, EOMI ENT: Present: hearing grossly normal - Respiratory Details: breathing is even and unlabored - Cardiovascular Details: skin warm and dry - Integumentary Integumentary: Absent: cyanotic, rash - Neurologic Neurologic Comment(s): grossly intact - Musculoskeletal Musculoskeletal: Present: strength equal bilaterally - Psychiatric Psychiatric: Present: A&O x's 3, appropriate affect, intact judgment & insight - Labs CBC & Chem 7: 10/07/22 05:16 10/07/22 05:16 Labs: Abnormal Lab Results - Last 24 Hours (Table) 10/07/22 10/07/22 Range/Units 05:16 05:16 WBC 13.42 H (4.50-10.00) X 10*3/uL RBC 2.74 L (4.10-5.20) X 10*6/uL Hgb 9.3 L (12.0-15.0) g/dL Hct 28.6 L (37.2-46.3) % MCV 104.4 H (80.0-97.0) fL MCH 33.9 H (27.0-32.0) pg RDW 15.0 H (11.5-14.5) % Immature Gran # 0.20 H (0.00-0.04) X 10*3/uL Neutrophils # 12.10 H (1.80-7.70) X 10*3/uL Lymphocytes # 0.84 L (0.90-5.00) X 10*3/uL Eosinophils # 0 L (0.04-0.35) X 10*3/uL Sodium 134 L (135-145) mmol/L Glucose 296 H (70-110) mg/dL Total Bilirubin 0.20 L (0.30-1.20) mg/dL AST 10 L (13-35) U/L Albumin 3.5 L (3.8-4.9) g/dL Albumin/Globulin Ratio 1.25 L (1.60-3.17) g/dL Microbiology - Last 24 Hours (Table) 10/04/22 13:31 Blood Culture - Preliminary Blood 10/04/22 13:31 Blood Culture - Preliminary Blood Assessment and Plan (1) Pneumonia Current Visit: Yes Status: Acute Priority: High Code(s): J18.9 - PNEUMONIA, UNSPECIFIED ORGANISM SNOMED Code(s): 470707256 (2) Ovarian cancer Current Visit: Yes Status: Acute Priority: High Code(s): C56.9 - MALIGNANT NEOPLASM OF UNSPECIFIED OVARY SNOMED Code(s): 781143650 Plan: Metastatic ovarian adenocarcinoma: -She currently is following with Dr. Thibodeaux and Dr. Cerda. She completed 7 cycles of Doxil/carbo in February 2022, and started maintenance Zejula 05/2022. -CT CAP from 07/12/22 showed scattered abdominal lymphadenopathy and new right middle lobe 14 mm nodule with soft tissue around the right pulmonary hilum and extends along right trachea. PET scan on 07/23/2022 showed pulmonary mediastinal lymphadenopathy, lower neck lymphadenopathy, intra-abdominal lymphadenopathy including mesentery, gastrohepatic ligament and gisele hepatis. Findings likely relating to ovarian cancer, as pulmonary nodule demonstrated FDG activity below background levels. -Pericardial fluid and pericardium biopsy obtained 08/05, were positive for metastatic ovarian carcinoma. -Due to progressing respiratory symptoms Zejula was discontinued approx 3 weeks ago. She has an upcoming appointment with Dr. Thibodeaux to discuss further treatment options, and per pt she was told that she will likely have to go back on chemotherapy. -F/u with primary oncologist upon discharge Pneumonia: -Chest x-ray revealed possible background COPD and interstitial densities present. Continues on Rocephin, PO steroids and breathing treatments. Reporting significant improvement in symptoms. Afebrile -ID and pulmonology consulted. -Influenza, RSV, COVID negative. Blood cultures negative at 48 hrs, urine legionella negative, sputum culture uncollected. Patient is cleared from heme/onc standpoint, once cleared by IM and other consulted medical specialties. attests: I have performed H&P and developed impression and plan of care for patient, discussed with dictator. I agree with dictated note, documented as a scribe
--- NOTE | 2022-10-07 13:42 | P.PN ---
Subjective Progress Note Date: 10/06/22 Principal diagnosis: Pneumonia Patient is a 57-year-old female with a past medical history significant for metastatic ovarian cancer, presented to the hospital with the i ncreasing cough and shortness of breath, patient was febrile on presentation to the hospital and concern for pneumonia. On today's evaluation is 10/06/2022, the patient is afebrile the patient is jt thing more comfortably the patient cough has decreased in intensity and remains to be dry in nature no nausea no vomiting no abdominal pain and no diarrhea Objective - Vital Signs Vital signs: Vital Signs Temp 98.8 F 10/06/22 12:57 Pulse 116 H 10/06/22 12:57 Resp 18 10/06/22 12:57 BP 143/82 10/06/22 12:57 Pulse Ox 94 L 10/06/22 12:57 FiO2 Intake & Output 10/05/22 10/06/22 10/06/22 18:59 06:59 18:59 Intake Total 50 550 Balance 50 550 Intake: Intake, IV Titration 50 50 Amount cefTRIAXone 2 gm In 50 50 Sodium Chloride 0.9% 50 ml @ 100 mls/hr IVPB Q24HR [facility] Rx#:[id number] Oral 500 Other: # Voids 1 - Exam GENERAL DESCRIPTION: Middle-age female up in bed in no distress RESPIRATORY SYSTEM: Unlabored breathing , occasional wheeze HEART: S1 S2 regular rate and rhythm , ABDOMEN: Soft , no tenderness EXTREMITIES: No edema feet - Labs CBC & Chem 7: 10/07/22 05:16 10/07/22 05:16 Labs: Abnormal Lab Results - Last 24 Hours (Table) 10/06/22 10/06/22 Range/Units 06:09 06:09 RBC 2.77 L (4.10-5.20) X 10*6/uL Hgb 9.3 L (12.0-15.0) g/dL Hct 29.0 L (37.2-46.3) % MCV 104.7 H (80.0-97.0) fL MCH 33.6 H (27.0-32.0) pg RDW 14.9 H (11.5-14.5) % Immature Gran # 0.06 H (0.00-0.04) X 10*3/uL Lymphocytes # 0.67 L (0.90-5.00) X 10*3/uL Monocytes # 0.13 L (0.20-1.00) X 10*3/uL Eosinophils # 0.01 L (0.04-0.35) X 10*3/uL Glucose 235 H (70-110) mg/dL Albumin 3.6 L (3.8-4.9) g/dL Albumin/Globulin Ratio 1.24 L (1.60-3.17) g/dL Microbiology - Last 24 Hours (Table) 10/04/22 13:31 Blood Culture - Preliminary Blood 10/04/22 13:31 Blood Culture - Preliminary Blood Assessment and Plan (1) Pneumonia Current Visit: Yes Status: Acute Priority: High Code(s): J18.9 - PNEUM ONIA, UNSPECIFIED ORGANISM SNOMED Code(s): 845932505 Plan: 1patient presented to hospital predominantly with respiratory symptoms specially with a cough which has been mostly dry in nature has been chronic for her but did show acute worsening and the patient was noticed to be febrile on presentation to the hospital x-ray however did show some COPD changes but no focal consolidation and some interstitial infiltrate concern for possible aty pical pneumonia work-up so far negative including negative RSV influenza and COVID testing and urine for Legionella antigen was negative, however the patient seem to have shown clinical improvement with a combination of steroids and antibiotics 2-patient did have mildly elevated CRP and a procalcitonin sputum could not be obtained, 3-patient seemed to have shown clinical improvement and will continue Rocephin and Zithromax Time with Patient: Less than 30
--- NOTE | 2022-10-07 13:43 | P.PN ---
Subjective Progress Note Date: 10/07/22 Principal diagnosis: Pneumonia Patient is a 57-year-old female with a past medical history significant for metastatic ovarian cancer, presented to the hospital with the i ncreasing cough and shortness of breath, patient was febrile on presentation to the hospital and concern for pneumonia. On today's evaluation is 10/07/2022, the patient remains to be afebrile the julia ent is breathing comfortably and is currently on 2 L nasal cannula oxygen, the patient cough has decreased in intensity and remains to be dry in nature no nausea no vomiting no abdominal pain and no diarrhea Objective - Vital Signs Vital signs: Vital Signs Temp 97.4 F L 10/07/22 07:55 Pulse 92 10/07/22 11:47 Resp 16 10/07/22 07:55 BP 143/78 10/07/22 07:55 Pulse Ox 96 10/07/22 08:09 FiO2 Intake & Output 10/06/22 10/07/22 10/07/22 18:59 06:59 18:59 Intake Total 400 400 Balance 400 400 Intake: Oral 400 400 - Exam GENERAL DESCRIPTION: Middle-age female up in bed in no distress RESPIRATORY SYSTEM: Unlabored breathing , occasional wheeze HEART: S1 S2 regular rate and rhythm , ABDOMEN: Soft , no tenderness EXTREMITIES: No edema feet - Labs CBC & Chem 7: 10/07/22 05:16 10/07/22 05:16 Labs: Abnormal Lab Results - Last 24 Hours (Table) 10/07/22 10/07/22 Range/Units 05:16 05:16 WBC 13.42 H (4.50-10.00) X 10*3/uL RBC 2.74 L (4.10-5.20) X 10*6/uL Hgb 9.3 L (12.0-15.0) g/dL Hct 28.6 L (37.2-46.3) % MCV 104.4 H (80.0-97.0) fL MCH 33.9 H (27.0-32.0) pg RDW 15.0 H (11.5-14.5) % Immature Gran # 0.20 H (0.00-0.04) X 10*3/uL Neutrophils # 12.10 H (1.80-7.70) X 10*3/uL Lymphocytes # 0.84 L (0.90-5.00) X 10*3/uL Eosinophils # 0 L (0.04-0.35) X 10*3/uL Sodium 134 L (135-145) mmol/L Glucose 296 H (70-110) mg/dL Total Bilirubin 0.20 L (0.30-1.20) mg/dL AST 10 L (13-35) U/L Albumin 3.5 L (3.8-4.9) g/dL Albumin/Globulin Ratio 1.25 L (1.60-3.17) g/dL Microbiology - Last 24 Hours (Table) 10/04/22 13:31 Blood Culture - Preliminary Blood 10/04/22 13:31 Blood Culture - Preliminary Blood Assessment and Plan (1) Pneumonia Current Visit: Yes Status: Acute Priority: High Code(s): J18.9 - PNEUMONIA, UNSPECIFIED ORGANISM SNOMED Code(s): 108641151 Plan: 1patient presented to hospital predominantly with respiratory symptoms speci ally with a cough which has been mostly dry in nature has been chronic for her but did show acute worsening and the patient was noticed to be febrile on presentation to the hospital x-ray however did show some COPD changes but no focal consolidation and some interstitial infiltrate concern for possible atypical pneumonia work-up so far negative including negative RSV influenza and COVID testing and urine for Legionella antigen was negative, however the patient seem to have shown clinical improvement with a combination of steroids and antibiotics 2-patient did have mildly elevated CRP and a procalcitonin sputum could not be obtained, 3-patient seemed to have shown clinical improvement on Rocephin and Zithromax, with a plan to finish therapy short course of oral Ceftin Time with Patient: Less than 30
[2022-10-07 15:01] VITALS: BP 123/79; RESP 19; TEMP 98.2
[2022-10-07 15:56] VITALS: PULSE 96
--- NOTE | 2022-10-07 16:58 | P.DS ---
Providers Date of admission: 10/04/22 17:46 Expected date of discharge: 10/07/22 Attending physician: Narciso Palomo Consults: 10/04/22 18:28 Consult Physician Routine Consulting Provider: Mariele Hansen Consult Reason/Comments: shortness of breath Do you want consulting provider notified?: Yes Consult Physician Routine Consulting Provider: Anastasiia Hoffmann Consult Reason/Comments: sepsis Do you want consulting provider notified?: Yes 10/04/22 18:46 Consult Physician Routine Consulting Provider: Enrique Sierra Consult Reason/Comments: ovarian cancer Do you want consulting provider notified?: Yes [facility] Course: Diagnosis on discharge: Sepsis on admission as evidenced by tachycardia, tachypnea, and fever of 102.1 Evidence of urinary tract infection Underlying history of metastatic ovarian cancer Recent treatment with Zeluja, for metastatic ovarian cancer, medication was stopped by her oncologist Dr. Thibodeaux due to side effect of lung inflammation Recent history of pericardial effusion with pericardial window a few months ago Hospital course: Saloni Dent, is a 57-year-old female who presented to [facility] emergency room with a chief complaint of worsening shortness of breath. Patient has a known history of ovarian cancer diagnosed 14 years ago she has been maintained on chemotherapy in the past, recently she was maintained on Zeluja, which was stopped about 3 weeks ago by her oncologist Dr. Portillo, due to side effect of lung inflammation. Patient has been complaining of cough and shortness of breath. However his symptoms have been worse in the last few days. Patient had previous admission with shortness of breath at that time she had evidence of pericardial effusion, she underwent pericardial window. She also had a previous admission was urinary tract infection with severe sepsis. She was evaluated in the emergency room vital examination on presentation revealed a temperature of 97.9 heart rate 117 respiration 26 blood pressure 108/64 pulse ox 94% on room air, shortly afterwards patient had a temperature of 102.1 Laboratory data revealed a white blood count of 9.1 hemoglobin 11.6 platelet count 279 sodium 135 potassium 3.6 chloride 99 CO2 26 BUN 6 creatinine 0.67 urine analysis revealed cloudy urine with positive leukocyte esterase and positive mucus Testing in the emergency room revealed chest x-ray revealed nonspecific prominent lung markings. On 09/30/2022 patient underwent a computed tomography scan of the chest abdomen and pelvis which revealed improving mesenteric lymphadenopathy right medial lung field density and right hilar adenopathy versus mass encasing the right middle and lower lobe bronchi. Patient was admitted to medical floor for further evaluation and treatment On 10/05/2022 patient was seen and examined on the medical floor she is alert and oriented 3 in no apparent distress, fever has subsided, patient is still complaining of significant cough or shortness of breath is improving, otherwise she denies any complaints there is no chest pain no headache or dizziness no nausea or vomiting no abdominal pain and no urinary symptoms. On 10/06/2022 patient is alert and oriented 3. Patient reports improvement with shortness of breath. Patient still having occasional cough. Patient remains on IV steroids DuoNeb breathing treatments and antibiotic. Infectious disease, oncology and pulmonary services are following. Current vital signs temp 97.8, heart rate 98, respiratory rate 18, blood pressure 126/75 with a pulse ox 93% on 2 L. Discussed with nursing staff to wean off oxygen On 10/07/2022 patient was seen and examined on the medical floor she is alert and oriented 3 in no apparent distress she reports improvement in her cough and shortness of breath, otherwise she denies any complaints there is no fever or chills no headache or dizziness no chest pain no nausea or vomiting no abdominal pain no diarrhea and no urinary symptoms. Patient was evaluated by pulmonary and was cleared for discharge. She will be discharged to home today, she will follow-up with Dr. Al office services representative, Dr. Thibodeaux oncology and her primary care physician Dr. Aguilar. Plan - Discharge Summary New Discharge Prescriptions: New Ipratropium-Albuterol Nebulize [Duoneb 0.5 mg-3 mg/3 ml Soln] 3 ml INHALATION RT-QID each Benzonatate [Tessalon Perles] 200 mg PO TID cap Formoterol Fumarate [Perforomist] 20 mcg INHALATION RT-BID ml Budesonide [Pulmicort] 0.5 mg INHALATION RT-BID ml cefUROXime axetiL [Cefuroxime] 500 mg PO BID 5 Days #10 tab Nystatin 100,000 Unit/ml Susp [Mycostatin Oral Susp] 500,000 unit PO QID ml predniSONE 10 mg PO DIRECTED 16 Days #40 tab Continue Astragalus Root 2 cap PO Q3H Fluticasone Nasal [place] [Flonase Nasal [place]] 1 spr EA NOSTRIL BID Doterra On Guard 2 cap PO DAILY Cetirizine HCl [Zyrtec] 10 mg PO HS Magnesium Taurate 1 cap PO HS Famotidine 20 mg PO BID Doterra Copaiba 2 cap PO HS Discontinued Fluticasone/Vilanterol [Breo Ellipta 200-25 Mcg Inhaler] 1 puff INHALATION RT-HS Discharge Medication List Astragalus Root 2 cap PO Q3H 10/04/22 [History] Cetirizine HCl [Zyrtec] 10 mg PO HS 10/04/22 [History] Doterra [place] 2 cap PO HS 10/04/22 [History] Doterra On Guard 2 cap PO DAILY 10/04/22 [History] Famotidine 20 mg PO BID 10/04/22 [History] Fluticasone Nasal [place] [Flonase Nasal [place]] 1 spr EA NOSTRIL BID 10/04/22 [History] Magnesium Taurate 1 cap PO HS 10/04/22 [History] Benzonatate [Tessalon Perles] 200 mg PO TID cap 10/07/22 [Rx] Budesonide [Pulmicort] 0.5 mg INHALATION RT-BID ml 10/07/22 [Rx] Formoterol Fumarate [Perforomist] 20 mcg INHALATION RT-BID ml 10/07/22 [Rx] Ipratropium-Albuterol Nebulize [Duoneb 0.5 mg-3 mg/3 ml Soln] 3 ml INHALATION RT-QID each 10/07/22 [Rx] Nystatin 100,000 Unit/ml Susp [Mycostatin Oral Susp] 500,000 unit PO QID ml 10/07/22 [Rx] cefUROXime axetiL [Cefuroxime] 500 mg PO BID 5 Days #10 tab 10/07/22 [Rx] predniSONE 10 mg PO DIRECTED 16 Days #40 tab 10/07/22 [Rx] Follow up Appointment(s)/Referral(s): Marilee Hansen MD [STAFF PHYSICIAN] - 10/13/22 1:15 pm Flower Aguilar MD [Primary Care Provider] - 10/14/22 11:00 am Patient Instructions/Handouts: Cefuroxime (By mouth), Benzonatate (By mouth), Prednisone (By mouth), Nystatin (By mouth), Budesonide (By breathing), Ipratropium/Albuterol (By breathing), Formoterol (By breathing), How to Use a Nebulizer (DC), Pneumonia (DC)
[2022-10-07] MEDS ORDERED: FORMOTEROL FUMARATE 20 MCG/2 ML NEBU INHALATION SCH (20:00)
[2022-10-07] MEDS ORDERED: BUDESONIDE 0.5 MG/2 ML NEBU INHALATION SCH (20:00)
== END 2022-10-07 17:46 | disposition home or self-care (01) | DRG 871 ==
LOC: EC 13:02 → 4SSUR 17:46 → 5NMEDONC 22:52
PROVIDERS: ADMIT Internal Medicine; ATTEND Internal Medicine
DX: A41.9 Sepsis, unspecified organism (principal); J18.9 Pneumonia, unspecified organism; J96.01 Acute respiratory failure with hypoxia; N39.0 Urinary tract infection, site not specified; J44.0 Chronic obstructive pulmonary disease with (acute) lower respiratory infection; C56.9 Malignant neoplasm of unspecified ovary; C78.00 Secondary malignant neoplasm of unspecified lung; C77.9 Secondary and unspecified malignant neoplasm of lymph node, unspecified; I31.39 Other pericardial effusion (noninflammatory); Z20.822 Contact with and (suspected) exposure to COVID-19; J20.9 Acute bronchitis, unspecified; Z85.43 Personal history of malignant neoplasm of ovary; Z90.5 Acquired absence of kidney; Z90.710 Acquired absence of both cervix and uterus; Z92.21 Personal history of antineoplastic chemotherapy; Z88.8 Allergy status to other drugs, medicaments and biological substances; Z88.5 Allergy status to narcotic agent; Z87.19 Personal history of other diseases of the digestive system
CPT/HCPCS: 36415; 71046; 80053; 81001; 83605; 83735; 84145; 85025; 85379; 87040; 87449; 87636; 93005; 94640; 94760; 96361; 96365; 96375; 99285

== ENCOUNTER 2022-10-30 10:52 | Inpatient (IN) | payer BC ==
[2022-10-30] MEDS ORDERED: IPRATROPIUM 0.5 MG/2.5 ML NEBU INHALATION STA (11:26)
[2022-10-30] MEDS ORDERED: methylPREDNISolone SOD SUCCI 125 MG/2 ML VIAL IV STA (11:26)
[2022-10-30] MEDS ORDERED: ALBUTEROL NEBULIZED 2.5 MG/3 ML INHALATION STA (11:26)
[2022-10-30] MEDS ORDERED: cefTRIAXone IN SWFI 1,000 MG/10 ML SYRINGE IVP STA (11:27)
--- NOTE | 2022-10-30 11:30 | ED ---
General Adult HPI <Feliberto Edwards - Last Filed: 10/30/22 14:53> - General Source: patient, RN notes reviewed, old records reviewed Mode of arrival: wheelchair Limitations: no limitations <Feliberto Shi - Last Filed: 10/30/22 15:42> - General Chief complaint: Shortness of Breath Stated complaint: sob Time Seen by Provider: 10/30/22 11:05 - History of Present Illness Initial comments: This is a 57-year-old female has a past medical history significant for ovarian cancer with inflammation to her lungs such that is irritating her trachea she is told she is on steroids at home and when they run out she has difficulty breathing and she ran out of stairs a few days ago. Patient states difficulty breathing got worse she was put back on prednisone but she continues to wheeze heavily and cough up some sputum and have a very hard time breathing. Patient denies any chest pain or palpitations. Patient states she's also notices difficult to lay flat and sleep and she's noticed some edema to the legs. Patient states this occurred over the last 3 days well. Patient states in the past she has had a pericardial effusion and a pericardial window. (Feliberto Shi) - Related Data Home Medications Medication Instructions Recorded Confirmed Astragalus Root 2 cap PO Q3H 10/04/22 10/04/22 Cetirizine HCl [Zyrtec] 10 mg PO HS 10/04/22 10/04/22 Doterra Copaiba 2 cap PO HS 10/04/22 10/04/22 Doterra On Guard 2 cap PO DAILY 10/04/22 10/04/22 Famotidine 20 mg PO BID 10/04/22 10/04/22 Fluticasone Nasal [place] [Flonase 1 spr EA NOSTRIL BID 10/04/22 10/04/22 Nasal [place]] Magnesium Taurate 1 cap PO HS 10/04/22 10/04/22 Previous Rx's Medication Instructions Recorded Benzonatate [Tessalon Perles] 200 mg PO TID cap 10/07/22 Budesonide [Pulmicort] 0.5 mg INHALATION RT-BID ml 10/07/22 Formoterol Fumarate [Perforomist] 20 mcg INHALATION RT-BID ml 10/07/22 Ipratropium-Albuterol Nebulize 3 ml INHALATION RT-QID each 10/07/22 [Duoneb 0.5 mg-3 mg/3 ml Soln] Nystatin 100,000 Unit/ml Susp 500,000 unit PO QID ml 10/07/22 [Mycostatin Oral Susp] cefUROXime axetiL [Cefuroxime] 500 mg PO BID 5 Days #10 tab 10/07/22 predniSONE 10 mg PO DIRECTED 16 Days #40 10/07/22 tab Allergies Allergy/AdvReac Type Severity Reaction Status Date / Time carboplatin Allergy Anaphylaxis Verified 10/30/22 10:56 hydromorphone [From Dilaudid] AdvReac falls Verified 10/30/22 10:56 asleep hard to arouse Review of Systems ROS Other: All systems not noted in ROS Statement are negative. <Feliberto Edwards - Last Filed: 10/30/22 14:53> ROS Other: All systems not noted in ROS Statement are negative. <Feliberto Shi - Last Filed: 10/30/22 15:42> ROS Statement: Those systems with pertinent positive or pertinent negative responses have been documented in the HPI. Past Medical History Past Medical History: Cancer Additional Past Medical History / Comment(s): hx ovarian cancer Reoccurence ovarian cancer August 2021, recent CT that showed inflammation pressing on trachea, no current treatment History of Any Multi-Drug Resistant Organisms: None Reported Past Surgical History: Bowel Resection, Cholecystectomy, Hernia Repair, Hysterectomy Past Anesthesia/Blood Transfusion Reactions: No Reported Reaction Past Psychological History: No Psychological Hx Reported Smoking Status: Former smoker Past Alcohol Use History: None Reported Past Drug Use History: None Reported - Past Family History Father History Unknown: Yes Family Medical History: Hypertension, Myocardial Infarction ([place]) Mother Family Medical History: Diabetes Mellitus, Hypertension <Feliberto Shi - Last Filed: 10/30/22 15:42> General Exam Limitations: no limitations <Feliberto Shi - Last Filed: 10/30/22 15:42> - General Exam Comments Initial Comments: GENERAL: Patient is well-developed and well-nourished. Patient is nontoxic and well- hydrated and is in moderate distress. ENT: Neck is soft and supple. No significant lymphadenopathy is noted. Oropharynx is clear. Moist mucous membranes. Neck has full range of motion without eliciting any pain. EYES: The sclera were anicteric and conjunctiva were pink and moist. Extraocular movements were intact and pupils were equal round and reactive to light. Eyelids were unremarkable. PULMONARY: Patient has diffuse expiratory wheezing and minimal airflow CARDIOVASCULAR: Patient has a regular rate and rhythm at 110 beats a minute ABDOMEN: Soft and nontender with normal bowel sounds. No palpable organomegaly was noted. There is no palpable pulsatile mass. SKIN: Skin is clear with no lesions or rashes and otherwise unremarkable. NEUROLOGIC: Patient is alert and oriented x3. Cranial nerves II through XII are grossly intact. Motor and sensory are also intact. Normal speech, volume and content. Symmetrical smile. MUSCULOSKELETAL: Normal extremities with adequate strength and full range of motion. 2+ bilaterally LYMPHATICS: No significant lymphadenopathy is noted PSYCHIATRIC: Normal psychiatric evaluation. (Feliberto Shi) Course Vital Signs 10/30/22 10/30/22 10/30/22 10:57 11:39 12:10 Temperature 97 F L Pulse Rate 113 H 112 H 112 H Respiratory 24 Rate Blood Pressure 104/64 O2 Sat by Pulse 94 L Oximetry 10/30/22 13:29 Temperature Pulse Rate 100 Respiratory 20 Rate Blood Pressure 146/78 O2 Sat by Pulse 96 Oximetry Procedures <Feliberto Edwards - Last Filed: 10/30/22 14:53> - Procedures Initial comment: Ultrasound, cardiac ultrasound bedside RE pericardial effusion Small pericardial effusion is noted Strong cardiac contractility No evidence of cardiac tamponade (Feliberto Edwards) Medical Decision Making - Lab Data Result diagrams: 10/30/22 11:45 10/30/22 11:45 <Feliberto Edwards - Last Filed: 10/30/22 14:53> - Lab Data Result diagrams: 10/30/22 11:45 10/30/22 11:45 <Feliberto Shi - Last Filed: 10/30/22 15:42> - Medical Decision Making EKG is interpreted by myself shows sinus tachycardia at 112 bpm VT interval 205 QRS is 94 QT interval 318 QTC is 385. Patient's EKG shows no ST segment elevation or depression. Was pt. sent in by a medical professional or institution (, PA, CNC MACHINE PROGRAMMER, urgent care, hospital, or long term...) When possible be specific @ -No Did you speak to anyone other than the patient for history (EMS, parent, family, police, friend...)? What history was obtained from this source @ -No Did you review nursing and triage notes (agree or disagree)? Why? @ -I reviewed and agree with nursing and triage notes Were old charts reviewed (outside hosp., previous admission, EMS record, old EKG, old radiological studies, urgent care reports/EKG's, long term records)? Report findings @ -2 prior charts prior laboratory prior radiological studies Differential Diagnosis (chest pain, altered mental status, abdominal pain women, abdominal pain men, vaginal bleeding, weakness, fever, dyspnea, syncope, hea dache, dizziness, GI bleed, back pain, seizure, CVA, palpatations, mental health, musculoskeletal)? @ -Differential dyspnea EKG interpreted by me (3pts min.). @ -As above X-rays interpreted by me (1pt min.). @ -Mild vascular congestion CT interpreted by me (1pt min.). @ -CT of the chest shows small pleural effusion small pericardial effusion mild vascular congestion no pulmonary embolism. U/S interpreted by me (1pt. min.). @ -None done What testing was considered but not performed or refused? (CT, X-rays, U/S, labs)? Why? @ -None What meds were considered but not given or refused? Why? @ -None Did you discuss the management of the patient with other professionals (professionals i.e. , PA, CNC MACHINE PROGRAMMER, lab, RT, psych nurse, geriatric social worker, travelift operator, teacher, community development officer, caseworker)? Give summary @ -I spoke with Dr. Palomo he agreed to admit the patient admitted the patient Was smoking cessation discussed for >3mins.? @ -No Was critical care preformed (if so, how long)? @ -35 minutes Were there social determinants of health that impacted care today? How? (Homelessness, low income, unemployed, alcoholism, drug addiction, transportation, low edu. Level, literacy, decrease access to med. care, retirement, rehab)? @ -No Was there de-escalation of care discussed even if they declined (Discuss DNR or withdrawal of care, Hospice)? DNR status @ -No What co-morbidities impacted this encounter? (DM, HTN, Smoking, COPD, CAD, Cancer, CVA, ARF, Chemo, Hep., AIDS, mental health diagnosis, sleep apnea, morbid obesity)? @ -None Was patient admitted / discharged? Hospital course, mention meds given and rou te, prescriptions, significant lab abnormalities, going to OR and other pertinent info. @ -Patient came in with difficulty breathing patient was wheezing diffusely and moving very little I gave the patient 2 breathing treatments and steroids and she felt considerably better. CAT scan showed some pleural effusion with his nose new pericardial effusion which was small and Dr. Edwards evaluated the heart and saw good heart motion. I spoke with Dr. Palomo he agreed to admit the patient admitted the patient I also give the patient magnesium and Lasix and I consulted cardiology and pulmonary Undiagnosed new problem with uncertain prognosis? @ -No Drug Therapy requiring intensive monitoring for toxicity (Heparin, Nitro, Insulin, Cardizem)? @ -No Were any procedures done? @ -No Diagnosis/symptom? @ -Bronchospasms Acute, or Chronic, or Acute on Chronic? @ -Acute Uncomplicated (without systemic symptoms) or Complicated (systemic symptoms)? @ -Complicated Side effects of treatment? @ -No Exacerbation, Progression, or Severe Exacerbation? @ -No Poses a threat to life or bodily function? How? (Chest pain, [place], [place], pneumonia, PE, COPD, DKA, ARF, appy, cholecystitis, CVA, Diverticulitis, Homicidal, Suicidal, threat to staff... and all critical care pts) @ -Yes this could lead hypoxia which can lead end organ dysfunction Diagnosis/symptom? @ -Pulmonary edema Acute, or Chronic, or Acute on Chronic? @ -Acute Uncomplicated (without systemic symptoms) or Complicated (systemic symptoms)? @ -Complicated Side effects of treatment? @ -none Exacerbation, Progression, or Severe Exacerbation] @ -no Poses a threat to life or bodily function? @ -Yes this could lead hypoxia and end organ dysfunction Diagnosis/symptom? @ -Hypomagnesemia Acute, or Chronic, or Acute on Chronic? @ -Acute Uncomplicated (without systemic symptoms) or Complicated (systemic symptoms)? @ -Uncomplicated Side effects of treatment? @ -none Exacerbation, Progression, or Severe Exacerbation] @ -no Poses a threat to life or bodily function? @ -no Diagnosis/symptom? @ -Pericardial effusion Acute, or Chronic, or Acute on Chronic? @ -Acute Uncomplicated (without systemic symptoms) or Complicated (systemic symptoms)? @ -Complicated Side effects of treatment? @ -none Exacerbation, Progression, or Severe Exacerbation] @ -no Poses a threat to life or bodily function? @ -Yes. This could lead to poor perfusion and end organ dysfunction (Feliberto Shi) - Lab Data Lab Results 10/30/22 10/30/22 10/30/22 Range/Units 11:45 11:45 11:45 WBC 8.1 (3.8-10.6) k/uL RBC 3.07 L (3.80-5.40) m/uL Hgb 10.0 L D (11.4-16.0) gm/dL Hct 31.3 L (34.0-46.0) % MCV 101.8 H (80.0-100.0) fL MCH 32.7 (25.0-35.0) pg MCHC 32.1 (31.0-37.0) g/dL RDW 16.9 H (11.5-15.5) % Plt Count 210 (150-450) k/uL MPV 7.4 Neutrophils % 86 % Lymphocytes % 8 % Monocytes % 4 % Eosinophils % 1 % Basophils % 0 % Neutrophils # 7.0 (1.3-7.7) k/uL Lymphocytes # 0.7 L (1.0-4.8) k/uL Monocytes # 0.3 (0-1.0) k/uL Eosinophils # 0.1 (0-0.7) k/uL Basophils # 0.0 (0-0.2) k/uL Hypochromasia Slight Poikilocytosis Slight Anisocytosis Slight Macrocytosis Slight PT 10.7 (9.0-12.0) sec INR 1.0 (<1.2) APTT 23.3 (22.0-30.0) sec D-Dimer 1.85 H (<0.60) mg/L FEU Sodium 128 L (137-145) mmol/L Potassium 4.3 (3.5-5.1) mmol/L Chloride 96 L (98-107) mmol/L Carbon Dioxide 22 (22-30) mmol/L Anion Gap 10 mmol/L BUN 9 (7-17) mg/dL Creatinine 0.58 (0.52-1.04) mg/dL Est GFR (CKD-EPI)AfAm >90 (>60 ml/min/1.73 sqM) Est GFR (CKD-EPI)NonAf >90 (>60 ml/min/1.73 sqM) Glucose 176 H (74-99) mg/dL Plasma Lactic Acid Narinder (0.7-2.0) mmol/L Calcium 9.0 (8.4-10.2) mg/dL Magnesium 1.4 L (1.6-2.3) mg/dL Total Bilirubin 1.0 (0.2-1.3) mg/dL AST 20 (14-36) U/L ALT 19 (4-34) U/L Alkaline Phosphatase 91 (38-126) U/L Troponin I (0.000-0.034) ng/mL NT-Pro-B Natriuret Pep pg/mL Total Protein 7.0 (6.3-8.2) g/dL Albumin 3.9 (3.5-5.0) g/dL 10/30/22 10/30/22 10/30/22 Range/Units 11:45 11:45 11:45 WBC (3.8-10.6) k/uL RBC (3.80-5.40) m/uL Hgb (11.4-16.0) gm/dL Hct (34.0-46.0) % MCV (80.0-100.0) fL MCH (25.0-35.0) pg MCHC (31.0-37.0) g/dL RDW (11.5-15.5) % Plt Count (150-450) k/uL MPV Neutrophils % % Lymphocytes % % Monocytes % % Eosinophils % % Basophils % % Neutrophils # (1.3-7.7) k/uL Lymphocytes # (1.0-4.8) k/uL Monocytes # (0-1.0) k/uL Eosinophils # (0-0.7) k/uL Basophils # (0-0.2) k/uL Hypochromasia Poikilocytosis Anisocytosis Macrocytosis PT (9.0-12.0) sec INR (<1.2) APTT (22.0-30.0) sec D-Dimer (<0.60) mg/L FEU Sodium (137-145) mmol/L Potassium (3.5-5.1) mmol/L Chloride (98-107) mmol/L Carbon Dioxide (22-30) mmol/L Anion Gap mmol/L BUN (7-17) mg/dL Creatinine (0.52-1.04) mg/dL Est GFR (CKD-EPI)AfAm (>60 ml/min/1.73 sqM) Est GFR (CKD-EPI)NonAf (>60 ml/min/1.73 sqM) Glucose (74-99) mg/dL Plasma Lactic Acid Narinder 1.9 (0.7-2.0) mmol/L Calcium (8.4-10.2) mg/dL Magnesium (1.6-2.3) mg/dL Total Bilirubin (0.2-1.3) mg/dL AST (14-36) U/L ALT (4-34) U/L Alkaline Phosphatase (38-126) U/L Troponin I <0.012 (0.000-0.034) ng/mL NT-Pro-B Natriuret Pep 443 pg/mL Total Protein (6.3-8.2) g/dL Albumin (3.5-5.0) g/dL Disposition <Feliberto Edwards - Last Filed: 10/30/22 14:53> Time of Disposition: 15:42 <Feliberto Shi - Last Filed: 10/30/22 15:42> Clinical Impression: Pericardial effusion, Hypomagnesemia, Pulmonary edema, Hyponatremia, Acute bronchospasm Disposition: ADMITTED IP TO THIS HOSP Referrals: Flower Aguilar MD [Primary Care Provider] - 1-2 days
[2022-10-30 12:11] LABS: ALT 19 U/L (4-34); AST 20 U/L (14-36); African American GFR (CKD) >90 (>60 ml/min/1.73 sqM); Albumin 3.9 g/dL (3.5-5.0); Alkaline Phosphatase 91 U/L (38-126); Anion Gap 10 mmol/L; Blood Urea Nitrogen 9 mg/dL (7-17); Carbon Dioxide 22 mmol/L (22-30); Chloride 96 mmol/L (98-107); Glucose 176 mg/dL (74-99); Magnesium 1.4 mg/dL (1.6-2.3); Non-African American GFR(CKD) >90 (>60 ml/min/1.73 sqM); Potassium 4.3 mmol/L (3.5-5.1); Sodium 128 mmol/L (137-145)
[2022-10-30 12:12] LABS: Anisocytosis Slight; Basophils % (A) 0 %; Eosinophils # (A) 0.1 k/uL (0-0.7); Eosinophils % (A) 1 %; HCT 31.3 % (34.0-46.0); Hypochromasia Slight; Lymphocytes # (A) 0.7 k/uL (1.0-4.8); Lymphocytes % (A) 8 %; MCH 32.7 pg (25.0-35.0); MCHC 32.1 g/dL (31.0-37.0); MCV 101.8 fL (80.0-100.0); Macrocytosis Slight; Mean Platelet Volume 7.4; Monocytes # (A) 0.3 k/uL (0-1.0); Monocytes % (A) 4 %; Neutrophils % (A) 86 %; Platelet Count 210 k/uL (150-450); Poikilocytosis Slight; RBC 3.07 m/uL (3.80-5.40); RDW 16.9 % (11.5-15.5); WBC 8.1 k/uL (3.8-10.6)
[2022-10-30 12:22] LABS: Partial Thromboplastin Time 23.3 sec (22.0-30.0); Prothrombin Time 10.7 sec (9.0-12.0)
--- NOTE | 2022-10-30 13:30 | XR ---
EXAMINATION TYPE: XR chest 2V DATE OF EXAM: 10/30/2022 1:13 PM COMPARISON: Chest radiographs from 10/05/2022 TECHNIQUE: XR chest 2V Frontal and lateral views of the chest. CLINICAL INDICATION:Female, 57 years old with history of difficulty breathing; FINDINGS: Lungs/Pleura: There is flattening of the diaphragm with increased lucency of the lungs. No evidence o f pneumothorax, pleural effusion or focal consolidation. Pulmonary vascularity: Pulmonary vascular congestion. Heart/mediastinum: Cardiomediastinal silhouette is enlarged and stable. Musculoskeletal: No acute osseous pathology. IMPRESSION: 1. Cardiomegaly and mild pulmonary vascular congestion. Correlate with BNP for congestive heart fail ure. 2. COPD changes.
--- NOTE | 2022-10-30 14:23 | CT ---
EXAMINATION TYPE: CT chest angio for PE CT DLP: 354.8 mGycm, Automated exposure control for dose reduction was used. DATE OF EXAM: 10/30/2022 1:56 PM COMPARISON: Chest radiograph from same day. 07/25/2022, 09/30/2022. 07/23/2022 CLINICAL INDICATION:Female, 57 years old with history of Short of breath; Shortness of breath, Possib le PE TECHNIQUE/CONTRAST: CTA scan of the thorax is performed without and with IV Contrast, patient injected with 100 ml mL of Isovue 370, pulmonary embolism protocol. MIP images are created and reviewed these are created on a separate workstation.. FINDINGS: Pulmonary Artery: There is no evidence for a filling defect within the pulmonary vasculature to sugge st acute pulmonary embolism. The pulmonary artery is of normal size. Lungs/Pleura: Intralobular septal thickening is noted. No evidence of focal consolidation, pleural ef fusion or pneumothorax. Right upper lung nodule has a similar morphology to prior CT 09/30/2022 right middle lobe pulmonary nodule measuring 12 mm which was obscured on prior CT due to consolidation. Airway: Large airways are patent. Heart: There is a small pericardial effusion. The heart is mildly enlarged for size. There is straigh tening of the interventricular septum. Vasculature: No evidence of aortic aneurysm. There remains soft tissue density along the right inferi or mammary chain most pronounced superiorly as seen on prior PET/CT. Mediastinum: Similar confluent soft tissue throughout the mediastinum. Musculoskeletal: No acute osseous abnormalities, remote appearing right rib 8 fracture with callus fo rmation. Soft Tissues: Unremarkable. Lower neck: No significant findings. Upper Abdomen: Upper abdominal lymphadenopathy remains present. IMPRESSION: 1. No evidence of pulmonary embolism. 2. New small bilateral pleural effusions, new small pericardial effusion, new pulmonary vascular shaista estion and cardiomegaly. Correlate with serum BNP for congestive heart failure. 3. There is mild straightening of the interventricular septum Correlate for cardiac tamponade. 4. Similar diffuse soft tissue within the mediastinum and pulmonary nodule change in the right right upper lung. Right middle lobe nodules as well as an area of consolidation on immediate prior. 5. Upper abdominal lymphadenopathy as seen on priors studies.
[2022-10-30] MEDS ORDERED: MAGNESIUM SULFATE-D5W PMX 1 GM in DEXTROSE/WATER 1 100ML.BAG IVPB ONE (14:29)
[2022-10-30] MEDS ORDERED: FUROSEMIDE 10 MG/ML 4 ML VIAL IV STA (14:52)
[2022-10-30] MEDS ORDERED: NITROGLYCERIN SL TABS 0.4 MG TAB SUBLINGUAL PRN (15:44)
[2022-10-30] MEDS: IPRATROPIUM-ALBUTEROL 3 ML NEB INHALATION SCH ×3 (17:13→22:14)
[2022-10-30 18:09] LABS: Glucose,Whole Blood 267 mg/dL (70-110)
[2022-10-30] MEDS ORDERED: ASTRAGALUS ROOT PO SCH (18:15)
[2022-10-30] MEDS: INSULIN ASPART (NovoLOG) 100 UNIT/ML VIAL SQ SCH ×2 (18:30→20:40)
[2022-10-30] MEDS: methylPREDNISolone SOD SUCCI 125 MG/2 ML VIAL IV SCH ×2 (18:30→23:44)
[2022-10-30 20:27] LABS: Glucose,Whole Blood 257 mg/dL (70-110)
[2022-10-30] MEDS: FUROSEMIDE 10 MG/ML 2 ML VIAL IV SCH (20:39)
[2022-10-30] MEDS: BENZONATATE 100 MG CAP PO SCH (20:39)
[2022-10-30] MEDS: LORATADINE 10 MG TAB PO SCH (20:39)
[2022-10-30] MEDS: FLUTICASONE 50MCG/SPRAY NASAL 16GM EA NOSTRIL SCH (20:40)
[2022-10-30] MEDS: FAMOTIDINE 20 MG TAB PO SCH (20:40)
[2022-10-30] MEDS ORDERED: MAGNESIUM TAURATE PO SCH (21:00)
[2022-10-30] MEDS ORDERED: [UNRECOGNIZED DRUG - OTHER] PO SCH (21:00)
[2022-10-30] MEDS: BUDESONIDE 1 MG/2 ML NEBU INHALATION SCH (22:12)
[2022-10-30] MEDS: FORMOTEROL FUMARATE 20 MCG/2 ML NEBU INHALATION SCH (22:12)
[2022-10-31] MEDS: FUROSEMIDE 10 MG/ML 2 ML VIAL IV SCH ×2 (06:16→17:07)
[2022-10-31] MEDS: methylPREDNISolone SOD SUCCI 125 MG/2 ML VIAL IV SCH ×3 (06:16→17:07)
[2022-10-31] MEDS: INSULIN ASPART (NovoLOG) 100 UNIT/ML VIAL SQ SCH ×4 (06:18→21:05)
[2022-10-31 06:20] LABS: Glucose,Whole Blood 227 mg/dL (70-110)
--- NOTE | 2022-10-31 07:13 | P.CRDCN ---
History of Present Illness Consult date: 10/31/22 Chief complaint: Shortness of breath History of present illness: This is an unfortunate 57-year-old female patient with a past medical history si gnificant for history of ovarian cancer with metastasis she was maintained on oral chemotherapy until recently as well as history of chronic hypoxic respiratory failure apparently related to side effect of the maintenance therapy as well as history of pericardial effusion status post pericardial window. The patient presented to the hospital complaining of shortness of breath started about a week ago. Recently she was diagnosed with chronic hypoxic respiratory failure and she was started on oxygen and continues to follow-up with sumo wrestler regularly. She was started on steroid and the maintenance chemotherapy was stopped and subsequently she felt better today about a week ago when she started experiencing increasing in the shortness of breath associated with wheezing as well as cough productive of whitish sputum with no fever or chills and no symptoms of chest pain or chest discomfort but she has been experiencing easy in the lower extremities edema lately. No dizziness or lighth eadedness and no feeling of heart racing or fluttering and no presyncope or syncope. She presented to the hospital for further evaluation. She underwent a workup including EKG showing sinus mechanism with sinus tachycardia with low- voltage QRS and also she underwent cardiac enzymes came in to be unremarkable and computed tomography scan of the chest showing no evidence of pulmonary embolism but she was found to have small bilateral pleural effusion and small pericardial effusion as well as pulmonary vascular congestions patent and the proBNP is about 800. Currently she is on oxygen to maintain her saturation above 90%. She was on oxygen as an outpatient. She was started on Lasix. An echocardiogram is in process to be done. Currently she is on Lasix 20 mg IV twice a day Examination is remarkable or stable vital signs with bilateral expiratory wheezing and bilateral lower extremities edema Assessment Acute on chronic hypoxic respiratory failure Pericardial effusion on the computed tomography scan of the chest. History of pericardial window recently. History of ovarian cancer with metastasis Multiple comorbid conditions Plan Continue the current medical regimen The echocardiogram is in process to be done Carefully watching the blood pressure in the light of being on diuretics Monitor kidney function and electrolytes Follow-up with the patient Further recommendation to follow the echocardiogram Past Medical History Past Medical History: Cancer Additional Past Medical History / Comment(s): Hx ovarian cancer /2017 reoccurence ovarian cancer August 2021, recent CT that showed inflammation pressi ng on trachea, 90 days tapering steroid dose. History of Any Multi-Drug Resistant Organisms: None Reported Past Surgical History: Bowel Resection, Cholecystectomy, Hernia Repair, Hysterectomy Additional Past Surgical History / Comment(s): Pericardial window July 2022 Past Anesthesia/Blood Transfusion Reactions: No Reported Reaction Past Psychological History: No Psychological Hx Reported Smoking Status: Never smoker Past Alcohol Use History: None Reported Past Drug Use History: None Reported - Past Family History Father History Unknown: Yes Family Medical History: Hypertension, Myocardial Infarction ([place]) Mother Family Medical History: Diabetes Mellitus, Hypertension Medications and Allergies Home Medications Medication Instructions Recorded Confirmed Type Astragalus Root 2 cap PO Q3H 10/04/22 10/30/22 History Cetirizine HCl [Zyrtec] 10 mg PO HS 10/04/22 10/30/22 History Doterra Copaiba 2 cap PO HS 10/04/22 10/30/22 History Doterra On Guard 2 cap PO DAILY 10/04/22 10/30/22 History Famotidine 20 mg PO BID 10/04/22 10/30/22 History Fluticasone Nasal [place] [Flonase 1 spr EA NOSTRIL BID 10/04/22 10/30/22 History Nasal [place]] Magnesium Taurate 1 cap PO HS 10/04/22 10/30/22 History Formoterol Fumarate [Perforomist] 20 mcg INHALATION RT-BID ml 10/07/22 10/30/22 Rx Ipratropium-Albuterol Nebulize 3 ml INHALATION RT-QID each 10/07/22 10/30/22 Rx [Duoneb 0.5 mg-3 mg/3 ml Soln] Benzonatate [Tessalon Perle] 200 mg PO TID 10/30/22 10/30/22 History Budesonide [Pulmicort] 1 mg INHALATION RT-BID 10/30/22 10/30/22 History Docusate [Colace] 100 mg PO DAILY PRN 10/30/22 10/30/22 History predniSONE 10 mg PO DAILY 10/30/22 10/30/22 History Allergies Allergy/AdvReac Type Severity Reaction Status Date / Time carboplatin Allergy Anaphylaxis Verified 10/30/22 17:28 hydromorphone [From Dilaudid] AdvReac falls Verified 10/30/22 17:28 asleep hard to arouse Physical Exam Vitals: Vital Signs Temp Pulse Pulse Resp BP BP Pulse Ox 10/31/22 03:58 110 H 20 104/58 96 10/31/22 00:00 107 H 20 95/48 92 L 10/30/22 22:41 110 H 10/30/22 22:15 108 H 10/30/22 20:00 97.9 F 107 H 16 104/67 93 L 10/30/22 17:33 98.8 F 112 H 28 H 136/83 95 10/30/22 17:23 112 H 28 H 10/30/22 17:02 111 H 18 107/73 96 10/30/22 16:29 112 H 10/30/22 16:20 110 H 10/30/22 13:29 100 20 146/78 96 10/30/22 12:10 112 H 10/30/22 11:39 112 H 10/30/22 10:57 97 F L 113 H 24 104/64 94 L Intake and Output 10/30/22 10/31/22 10/31/22 22:59 06:59 14:59 Intake Total 540 1080 Output Total 2250 700 Balance -1710 380 Intake: Oral 540 1080 Output: Urine 2250 700 Other: Voiding Method Toilet Toilet Bedside Commode Bedside Commode Weight 86.636 kg Results 10/30/22 11:45 10/30/22 11:45 Cardiac Enzymes 10/30/22 10/30/22 10/30/22 Range/Units 11:45 11:45 16:22 AST 20 (14-36) U/L Troponin I <0.012 <0.012 (0.000-0.034) ng/mL 10/30/22 Range/Units 19:06 AST (14-36) U/L Troponin I <0.012 (0.000-0.034) ng/mL Coagulation 10/30/22 Range/Units 11:45 PT 10.7 (9.0-12.0) sec APTT 23.3 (22.0-30.0) sec CBC 10/30/22 Range/Units 11:45 WBC 8.1 (3.8-10.6) k/uL RBC 3.07 L (3.80-5.40) m/uL Hgb 10.0 L D (11.4-16.0) gm/dL Hct 31.3 L (34.0-46.0) % Plt Count 210 (150-450) k/uL Comprehensive Metabolic Panel 10/30/22 Range/Units 11:45 Sodium 128 L (137-145) mmol/L Potassium 4.3 (3.5-5.1) mmol/L Chloride 96 L (98-107) mmol/L Carbon Dioxide 22 (22-30) mmol/L BUN 9 (7-17) mg/dL Creatinine 0.58 (0.52-1.04) mg/dL Glucose 176 H (74-99) mg/dL Calcium 9.0 (8.4-10.2) mg/dL AST 20 (14-36) U/L ALT 19 (4-34) U/L Alkaline Phosphatase 91 (38-126) U/L Total Protein 7.0 (6.3-8.2) g/dL Albumin 3.9 (3.5-5.0) g/dL Current Medications Generic Name Dose Route Start Last Admin Trade Name Freq PRN Reason Stop Dose Admin Albuterol/Ipratropium 3 ml 10/30/22 16:00 10/30/22 22:12 Ipratropium-Albuterol 3 Ml Neb INHALATION 3 ml RT-QID SAMIR Administration Albuterol/Ipratropium 3 ml 10/30/22 15:49 Ipratropium-Albuterol 3 Ml Neb INHALATION RT-Q2H PRN Shortness Of Breath Or Wheezing Albuterol/Ipratropium 3 ml 10/30/22 20:00 10/30/22 22:14 Ipratropium-Albuterol 3 Ml Neb INHALATION Not Given RT-QID SAMIR Aspirin 325 mg 10/31/22 09:00 Aspirin 325 Mg Tab PO DAILY SAMIR Benzonatate 200 mg 10/30/22 22:00 10/30/22 20:39 Benzonatate 100 Mg Cap PO 200 mg TID SAMIR Administration Budesonide 1 mg 10/30/22 20:00 10/30/22 22:12 Budesonide 1 Mg/2 Ml Nebu INHALATION 1 mg RT-BID SAMIR Administration Docusate Sodium 100 mg 10/30/22 18:10 Docusate 100 Mg Cap PO DAILY PRN Constipation Famotidine 20 mg 10/30/22 21:00 06/17/23 20:40 Famotidine 20 Mg Tab PO 20 mg BID SAMIR Administration Fluticasone Propionate 1 spray 10/30/22 21:00 10/30/22 20:40 Fluticasone 50mcg/[place] Nasal 16gm EA NOSTRIL 1 spray BID SAMIR Administration Formoterol Fumarate 20 mcg 10/30/22 20:00 10/30/22 22:12 Formoterol Fumarate 20 Mcg/2 Ml Nebu INHALATION 20 mcg RT-BID SAMIR Administration Furosemide 20 mg 10/30/22 18:30 10/31/22 06:16 Furosemide 10 Mg/Ml 2 Ml Vial IV 20 mg Q12HR@0600,1800 SAMIR Administration Insulin Aspart 0 unit 10/30/22 18:11 10/31/22 06:18 Insulin Aspart (Novolog) 100 Unit/Ml Vial SQ 4 unit ACHS SAMIR Administration Protocol Loratadine 10 mg 10/30/22 21:00 10/30/22 20:39 Loratadine 10 Mg Tab PO 10 mg HS SAMIR Administration Methylprednisolone Sodium Succinate 60 mg 10/30/22 18:00 10/31/22 06:16 Methylprednisolone Sod Succi 125 Mg/2 Ml Vial IV 60 mg Q6HR SAMIR Administration Nitroglycerin 0.4 mg 10/30/22 15:44 Nitroglycerin Sl Tabs 0.4 Mg Tab SUBLINGUAL Q5M PRN Chest Pain Intake and Output 10/30/22 10/31/22 10/31/22 22:59 06:59 14:59 Intake Total 540 1080 Output Total 2250 700 Balance -1710 380 Intake: Oral 540 1080 Output: Urine 2250 700 Other: Voiding Method Toilet Toilet Bedside Commode Bedside Commode Weight 86.636 kg 10/30/22 11:45 10/30/22 11:45
[2022-10-31] MEDS: FLUTICASONE 50MCG/SPRAY NASAL 16GM EA NOSTRIL SCH ×2 (08:11→21:06)
[2022-10-31] MEDS: FAMOTIDINE 20 MG TAB PO SCH ×2 (08:11→21:06)
[2022-10-31] MEDS: BENZONATATE 100 MG CAP PO SCH ×3 (08:11→21:06)
[2022-10-31] MEDS: ASPIRIN 325 MG TAB PO SCH (08:11)
[2022-10-31] MEDS: BUDESONIDE 1 MG/2 ML NEBU INHALATION SCH ×2 (08:42→21:48)
[2022-10-31] MEDS: IPRATROPIUM-ALBUTEROL 3 ML NEB INHALATION SCH ×5 (08:42→21:48)
[2022-10-31] MEDS: FORMOTEROL FUMARATE 20 MCG/2 ML NEBU INHALATION SCH ×2 (08:42→21:48)
[2022-10-31] MEDS ORDERED: [UNRECOGNIZED DRUG - OTHER] PO SCH (09:00)
--- NOTE | 2022-10-31 10:19 | P.HPIM ---
History of Present Illness H&P Date: 10/31/22 Chief Complaint: Dyspnea pericardial effusion This is a 57-year-old female patient of Dr. Aguilar who presented with concerns of increased dyspnea. Patient reports that she was having improvement since previous admission with updraft and prednisone treatment but starts developing increased wheezing and shortness breath increasing over the past few days. patient has extensive medical history including ovarian cancer which was diagnosed 14 years ago and has been maintained on chemo therapy. Additional medical history includes previous episode of pericardial effusion with pericardial window. Chest x-ray showing cardiomegaly with mild pulmonary vascular congestion correlate with BMP for congestive heart failure. COPD changes. Chest CTA completed showing no evidence of pulmonary embolism U small bilateral pleural effusions him a new small pericardial effusion new pulmonary vascular congestion and cardiomegaly correlate with serum BNP. This time patient will be admitted patient's BREATHING treatments, IV Lasix, Solu-Medrol. Pulmonary cardiology and oncology services will be consulted. Review of Systems HPI otherwise unremarkable Past Medical History Past Medical History: Cancer Additional Past Medical History / Comment(s): Hx ovarian cancer /2017 reoccurence ovarian cancer August 2021, recent CT that showed inflammation pressing on trachea, 90 days tapering steroid dose. History of Any Multi-Drug Resistant Organisms: None Reported Past Surgical History: Bowel Resection, Cholecystectomy, Hernia Repair, Hysterectomy Additional Past Surgical History / Comment(s): Pericardial window July 2022 Past Anesthesia/Blood Transfusion Reactions: No Reported Reaction Past Psychological History: No Psychological Hx Reported Smoking Status: Never smoker Past Alcohol Use History: None Reported Past Drug Use History: None Reported - Past Family History Father History Unknown: Yes Family Medical History: Hypertension, Myocardial Infarction ([place]) Mother Family Medical History: Diabetes Mellitus, Hypertension Medications and Allergies Home Medications Medication Instructions Recorded Confirmed Type Astragalus Root 2 cap PO Q3H 10/04/22 10/30/22 History Cetirizine HCl [Zyrtec] 10 mg PO HS 10/04/22 10/30/22 History Doterra Copaiba 2 cap PO HS 10/04/22 10/30/22 History Doterra On Guard 2 cap PO DAILY 10/04/22 10/30/22 History Famotidine 20 mg PO BID 10/04/22 10/30/22 History Fluticasone Nasal [place] [Flonase 1 spr EA NOSTRIL BID 10/04/22 10/30/22 History Nasal [place]] Magnesium Taurate 1 cap PO HS 10/04/22 10/30/22 History Formoterol Fumarate [Perforomist] 20 mcg INHALATION RT-BID ml 10/07/22 10/30/22 Rx Ipratropium-Albuterol Nebulize 3 ml INHALATION RT-QID each 10/07/22 10/30/22 Rx [Duoneb 0.5 mg-3 mg/3 ml Soln] Benzonatate [Tessalon Perle] 200 mg PO TID 10/30/22 10/30/22 History Budesonide [Pulmicort] 1 mg INHALATION RT-BID 10/30/22 10/30/22 History Docusate [Colace] 100 mg PO DAILY PRN 10/30/22 10/30/22 History predniSONE 10 mg PO DAILY 10/30/22 10/30/22 History Allergies Allergy/AdvReac Type Severity Reaction Status Date / Time carboplatin Allergy Anaphylaxis Verified 10/30/22 17:28 hydromorphone [From Dilaudid] AdvReac falls Verified 10/30/22 17:28 asleep hard to arouse Physical Exam Vitals: Vital Signs Temp Pulse Pulse Resp BP BP Pulse Ox 10/31/22 09:12 104 H 10/31/22 08:56 102 H 10/31/22 08:55 104 H 10/31/22 08:42 106 H 95 10/31/22 08:06 98.2 F 108 H 24 115/71 94 L 10/31/22 03:58 110 H 20 104/58 96 10/31/22 00:00 107 H 20 95/48 92 L 10/30/22 22:41 110 H 10/30/22 22:15 108 H 10/30/22 20:00 97.9 F 107 H 16 104/67 93 L 10/30/22 17:33 98.8 F 112 H 28 H 136/83 95 10/30/22 17:23 112 H 28 H 10/30/22 17:02 111 H 18 107/73 96 10/30/22 16:29 112 H 10/30/22 16:20 110 H 10/30/22 13:29 100 20 146/78 96 10/30/22 12:10 112 H 10/30/22 11:39 112 H 10/30/22 10:57 97 F L 113 H 24 104/64 94 L Intake and Output 10/30/22 10/31/22 10/31/22 22:59 06:59 14:59 Intake Total 540 1080 118 Output Total 2250 700 Balance -1710 380 118 Intake: Oral 540 1080 118 Output: Urine 2250 700 Other: Voiding Method Toilet Toilet Toilet Bedside Commode Bedside Commode Bedside Commode Weight 86.636 kg 87.3 kg Head normocephalic Neck supple Lungs bilateral wheezing expiratory Heart regular rate and rhythm S1-S2, no rub or gallop Abdomen is soft nontender nondistended positive bowel sounds no hepatosplenomegaly Extremities no edema Neuro alert and orientated to 3 Results CBC & Chem 7: 10/30/22 11:45 10/30/22 11:45 Labs: Abnormal Lab Results - Last 24 Hours (Table) 10/30/22 10/30/22 10/30/22 Range/Units 11:45 11:45 11:45 RBC 3.07 L (3.80-5.40) m/uL Hgb 10.0 L D (11.4-16.0) gm/dL Hct 31.3 L (34.0-46.0) % MCV 101.8 H (80.0-100.0) fL RDW 16.9 H (11.5-15.5) % Lymphocytes # 0.7 L (1.0-4.8) k/uL D-Dimer 1.85 H (<0.60) mg/L FEU Sodium 128 L (137-145) mmol/L Chloride 96 L (98-107) mmol/L Glucose 176 H (74-99) mg/dL POC Glucose (mg/dL) (70-110) mg/dL Magnesium 1.4 L (1.6-2.3) mg/dL 10/30/22 10/30/22 10/31/22 Range/Units 18:08 20:26 06:18 RBC (3.80-5.40) m/uL Hgb (11.4-16.0) gm/dL Hct (34.0-46.0) % MCV (80.0-100.0) fL RDW (11.5-15.5) % Lymphocytes # (1.0-4.8) k/uL D-Dimer (<0.60) mg/L FEU Sodium (137-145) mmol/L Chloride (98-107) mmol/L Glucose (74-99) mg/dL POC Glucose (mg/dL) 267 H 257 H 227 H (70-110) mg/dL Magnesium (1.6-2.3) mg/dL Thrombosis Risk Factor Assmnt - Choose All That Apply Any of the Below Risk Factors Present?: Yes Each Factor Represents 1 point: Age 41-60 years, Obesity (BMI >25), Serious lung disease incl. pneumonia (< 1month), Swollen legs (current) Other Risk Factors: No Other congenital or acquired thrombophilia - If yes, enter type in comment: No Thrombosis Risk Factor Assessment Total Risk Factor Score: 4 Thrombosis Risk Factor Assessment Level: Moderate Risk Assessment and Plan Assessment: 1. Acute on chronic hypoxic respiratory failure 2. Pericardial effusion on computed tomography scan of the chest 3. History of pericardial window 4. History of ovarian cancer with metastatic disease 5. Bronchospasms 6. History of oral thrush Pulmonary cardiology service is consulted 2-D echo completed Maintained on IV Lasix, IV steroids and DuoNeb breathing treatmen treatments. Time with Patient: Greater than 30 (Greater than 60% of the total time spent in counseling and coordination of care)
--- NOTE | 2022-10-31 11:18 | P.CNPUL ---
History of Present Illness Consult date: 10/31/22 Requesting physician: Narciso Palomo Reason for consult: dyspnea, cough, hypoxemia, abnormal CXR/CT Chief complaint: Shortness of breath/cough. History of present illness: Pulmonary consult dated 10/31/2022. 57-year-old female with a history of metastatic ovarian carcinoma, who was seen in the emergency department, on October 30, complaining of shortness of breath, difficulty breathing, cough, chest congestion, and occasional phlegm production. She states that when she weaned herself off the prednisone, her respiratory complaints became worse. I saw her in consultation, September of this year. The patient previously was thought to have pneumonitis, secondary to her chemotherapeutic agent. Currently, the patient is on 2 L of nasal oxygen, with saturations in the mid 90s. She does not appear to be particularly short of breath, does not have any conversational dyspnea, or use of accessory muscles. The patient was given breathing treatments, corticosteroids, and antibiotics. The patient's chest x-ray showed cardiomegaly, mild pulmonary vascular congestion. CT angiogram that was performed, was negative for pulmonary embolism, showed small bilateral pleural effusions, as well as some upper abdominal lymphadenopathy, and a right middle lobe pulmonary nodule. White count is 8.1, hemoglobin 10, hematocrit 31.3, with a platelet count of 210,000. D-dimer was elevated at 1.85. Sodium 128, potassium 4.3, chlorides 96, CO2 22, BUN 9, creatinine 0.58. The rest of the comprehensive metabolic profile is essentially normal. Review of Systems REVIEW OF SYSTEMS: CONSTITUTIONAL: [Negative.] NEUROLOGIC: [ Negative.] HEENT: [ Negative.] CARDIAC: Mild lower extremity edema, shortness of breath. PULMONARY: Shortness of breath, chest congestion, cough, occasional phlegm production. GI: [Negative.] : [Negative.] RHEUMATOLOGIC: [ Negative.] IMMUNOLOGIC: [ Negative.] ENDOCRINE: [Negative. ] DERMATOLOGIC: [Negative.] Past Medical History Past Medical History: Cancer Additional Past Medical History / Comment(s): Hx ovarian cancer /2017 reoccurence ovarian cancer August 2021, recent CT that showed inflammation pressing on trachea, 90 days tapering steroid dose. History of Any Multi-Drug Resistant Organisms: None Reported Past Surgical History: Bowel Resection, Cholecystectomy, Hernia Repair, Hysterectomy Additional Past Surgical History / Comment(s): Pericardial window July 2022 Past Anesthesia/Blood Transfusion Reactions: No Reported Reaction Past Psychological History: No Psychological Hx Reported Smoking Status: Never smoker Past Alcohol Use History: None Reported Past Drug Use History: None Reported - Past Family History Father History Unknown: Yes Family Medical History: Hypertension, Myocardial Infarction ([place]) Mother Family Medical History: Diabetes Mellitus, Hypertension Medications and Allergies Home Medications Medication Instructions Recorded Confirmed Type Astragalus Root 2 cap PO Q3H 10/04/22 10/30/22 History Cetirizine HCl [Zyrtec] 10 mg PO HS 10/04/22 10/30/22 History Doterra Copaiba 2 cap PO HS 10/04/22 10/30/22 History Doterra On Guard 2 cap PO DAILY 10/04/22 10/30/22 History Famotidine 20 mg PO BID 10/04/22 10/30/22 History Fluticasone Nasal [place] [Flonase 1 spr EA NOSTRIL BID 10/04/22 10/30/22 History Nasal [place]] Magnesium Taurate 1 cap PO HS 10/04/22 10/30/22 History Formoterol Fumarate [Perforomist] 20 mcg INHALATION RT-BID ml 10/07/22 10/30/22 Rx Ipratropium-Albuterol Nebulize 3 ml INHALATION RT-QID each 10/07/22 10/30/22 Rx [Duoneb 0.5 mg-3 mg/3 ml Soln] Benzonatate [Tessalon Perle] 200 mg PO TID 10/30/22 10/30/22 History Budesonide [Pulmicort] 1 mg INHALATION RT-BID 10/30/22 10/30/22 History Docusate [Colace] 100 mg PO DAILY PRN 10/30/22 10/30/22 History predniSONE 10 mg PO DAILY 10/30/22 10/30/22 History Allergies Allergy/AdvReac Type Severity Reaction Status Date / Time carboplatin Allergy Anaphylaxis Verified 10/30/22 17:28 hydromorphone [From Dilaudid] AdvReac falls Verified 10/30/22 17:28 asleep hard to arouse Physical Exam Osteopathic Statement: *. No significant issues noted on an osteopathic structural exam other than those noted in the History and Physical/Consult. Vitals: Vital Signs Temp Pulse Pulse Resp BP BP Pulse Ox 10/31/22 09:12 104 H 10/31/22 08:56 102 H 10/31/22 08:55 104 H 10/31/22 08:42 106 H 95 10/31/22 08:06 98.2 F 108 H 24 115/71 94 L 10/31/22 03:58 110 H 20 104/58 96 10/31/22 00:00 107 H 20 95/48 92 L 10/30/22 22:41 110 H 10/30/22 22:15 108 H 10/30/22 20:00 97.9 F 107 H 16 104/67 93 L 10/30/22 17:33 98.8 F 112 H 28 H 136/83 95 10/30/22 17:23 112 H 28 H 10/30/22 17:02 111 H 18 107/73 96 10/30/22 16:29 112 H 10/30/22 16:20 110 H 10/30/22 13:29 100 20 146/78 96 10/30/22 12:10 112 H 10/30/22 11:39 112 H Intake and Output 10/30/22 10/31/22 10/31/22 22:59 06:59 14:59 Intake Total 540 1080 118 Output Total 2250 700 Balance -1710 380 118 Intake: Oral 540 1080 118 Output: Urine 2250 700 Other: Voiding Method Toilet Toilet Toilet Bedside Commode Bedside Commode Bedside Commode Weight 86.636 kg 87.3 kg No acute distress, oriented 3. Currently on 2 L. No conversational dyspnea or use of accessory muscles. HEENT examination is grossly unremarkable. Mucous membranes are moist. No oral lesions. Neck supple. Full range of motion. No adenopathy thyromegaly or neck vein distention. Cardiovascular examination reveals regular rhythm rate. S1-S2 normal. No S3 or S4. No discernible murmur noted. Heart rate about 100 bpm. Heart sounds are distant. Lungs reveal scattered rhonchi. No wheezes or crackles. Breath sounds equal bilaterally. 2 L saturation is between 95-96%. Abdomen soft bowel sounds are heard. No masses or tenderness. Extremities are intact. No cyanosis or clubbing. Trace lower extremity edema. Skin is without rash or lesion. Neurologic examination is brief but nonfocal. Results - Laboratory Findings CBC and BMP: 10/30/22 11:45 10/30/22 11:45 PT/INR, D-dimer PT 10.7 sec (9.0-12.0) 10/30/22 11:45 INR 1.0 (<1.2) 10/30/22 11:45 D-Dimer 1.85 mg/L FEU (<0.60) H 10/30/22 11:45 Abnormal lab findings: Abnormal Labs 10/30/22 10/30/22 10/30/22 11:45 11:45 11:45 RBC 3.07 L Hgb 10.0 L D Hct 31.3 L MCV 101.8 H RDW 16.9 H Lymphocytes # 0.7 L D-Dimer 1.85 H Sodium 128 L Chloride 96 L Glucose 176 H POC Glucose (mg/dL) Magnesium 1.4 L 10/30/22 10/30/22 10/31/22 18:08 20:26 06:18 RBC Hgb Hct MCV RDW Lymphocytes # D-Dimer Sodium Chloride Glucose POC Glucose (mg/dL) 267 H 257 H 227 H Magnesium - Diagnostic Findings Chest x-ray: image reviewed CT scan - chest: image reviewed Assessment and Plan Assessment: Acute shortness of breath, likely multifactorial, in part related to mild fluid overload/CHF, acute bronchitis with bronchospasm, as well as possible iatrogenic pneumonitis, related to [place]. Rule out active infection/bronchopneumonia, less likely. Metastatic ovarian carcinoma, diagnosed in 2008, with recurrence. The patient has diffuse adenopathy, both in the abdominal cavity and thoracic cavity. Metastatic pulmonary nodule. History of malignant pericardial effusion, status post pericardial window. Plan: Plan dated 10/31/2022. A pro-calcitonin level will be checked. Currently, the patient's on Pulmicort 1 mg, twice a day, mixed with formoterol, 20 g, twice a day. In addition, the patient's receiving updrafts with albuterol sulfate and ipratropium bromide. The patient is also on Solu-Medrol, 60 mg every 6 hours. Finally, the patient was placed on Rocephin, which was given to her in the emergency department. Labs, x-rays, medications are all reviewed. The patient is also receiving some Lasix, for possible mild fluid overload, although the N-terminal proBNP level was only 443. We will continue to follow the patient and make recommendations along the way. Her respiratory status appears to be relatively stable at this time. Time with Patient: Greater than 30
[2022-10-31] MEDS: NYSTATIN 100,000 UNIT/ML SUSP 500,000 UNIT/5 ML CUP PO SCH ×3 (11:40→20:16)
[2022-10-31 11:42] LABS: Glucose,Whole Blood 252 mg/dL (70-110)
[2022-10-31 13:06] LABS: Chol/HDL Ratio 2.67 Ratio; LDL Cholesterol,Calculated 75.3 mg/dL (0.0-131.0)
--- NOTE | 2022-10-31 13:50 | P.CONS ---
History of Present Illness - Reason for Consult Consult date: 10/31/22 History of metastatic ovarian cancer - Chief Complaint Dyspnea - History of Present Illness Ms. Dent is a 57-year-old woman with a past medical history significant for metastatic ovarian cancer, that was originally diagnosed in 2008 has received multiple treatments, most recently on Zejula started in May 2022 after 7 cycles of Doxil/carboplatin in February 2022 with recent imaging in September 2022 revealing evidence of disease progression who presents for acute dyspnea. She was hospitalized from 10/04/2022 through 10/07/2022 for dyspnea at that time, which was thought to be related to pneumonia. She did discontinue Zejula 3 weeks prior to her admission. On discharge, she was placed on a steroid taper lasting approximately 15 days and did not have any respiratory issues during this time. After completing the steroid taper, she developed increased dyspnea with wheezing. She was placed back on prednisone 10 mg daily, which she took for 3 days prior to her presentation. This did not bring any relief. She denies any fevers, chills, or known sick contacts. She does have some intermi ttent rhinorrhea and nasal congestion secondary to allergies, did not note this was increased compared to her normal allergies. Given her dyspnea and wheezing, she presented to the ED for additional management recommendations. On admission, she was noted to be tachycardic with heart rates ranging from the 100s to 110s. Oxygen saturations were between 92 and 96%. Due to significant wheezing, she was placed on [address] angio revealed no evidence of pulmonary embolism, but did note small bilateral pleural effusions and new small pericardial effusion. Known right lung nodules along with soft tissue mediastinal findings were unchanged compared to prior admission. Labs noted so dium 128, proBNP 443, troponin negative x3. Hemoglobin 10 with MCV 101.8, WBC 8.1, platelets 210. She received methylprednisolone 125 mg IV Lasix 40 mg IV ceftriaxone, and DuoNeb treatment. She was admitted to internal medicine for additional management, where she was started on Lasix 20 mg IV twice daily, Methylpred 60 mg IV every 6 hours, and DuoNebs 4 times daily scheduled. Since admission, her breathing is dramatically improved and is able to converse freely without dyspnea. Review of Systems 14 point review of systems was conducted with pertinent positives and negatives as noted per HPI. Past Medical History Past Medical History: Cancer Additional Past Medical History / Comment(s): Hx ovarian cancer /2017 reoccurence ovarian cancer August 2021, recent CT that showed inflammation pressing on trachea, 90 days tapering steroid dose. History of Any Multi-Drug Resistant Organisms: None Reported Past Surgical History: Bowel Resection, Cholecystectomy, Hernia Repair, Hysterectomy Additional Past Surgical History / Comment(s): Pericardial window July 2022 Past Anesthesia/Blood Transfusion Reactions: No Reported Reaction Past Psychological History: No Psychological Hx Reported Smoking Status: Never smoker Past Alcohol Use History: None Reported Past Drug Use History: None Reported - Past Family History Father History Unknown: Yes Family Medical History: Hypertension, Myocardial Infarction (CT) Mother Family Medical History: Diabetes Mellitus, Hypertension Medications and Allergies Home Medications Medication Instructions Recorded Confirmed Type Astragalus Root 2 cap PO Q3H 10/04/22 10/30/22 History Cetirizine HCl [Zyrtec] 10 mg PO HS 10/04/22 10/30/22 History Doterra Copaiba 2 cap PO HS 10/04/22 10/30/22 History Doterra On Guard 2 cap PO DAILY 10/04/22 10/30/22 History Famotidine 20 mg PO BID 10/04/22 10/30/22 History Fluticasone Nasal [place] [Flonase 1 spr EA NOSTRIL BID 10/04/22 10/30/22 History Nasal [place]] Magnesium Taurate 1 cap PO HS 10/04/22 10/30/22 History Formoterol Fumarate [Perforomist] 20 mcg INHALATION RT-BID ml 10/07/22 10/30/22 Rx Ipratropium-Albuterol Nebulize 3 ml INHALATION RT-QID each 10/07/22 10/30/22 Rx [Duoneb 0.5 mg-3 mg/3 ml Soln] Benzonatate [Tessalon Perle] 200 mg PO TID 10/30/22 10/30/22 History Budesonide [Pulmicort] 1 mg INHALATION RT-BID 10/30/22 10/30/22 History Docusate [Colace] 100 mg PO DAILY PRN 10/30/22 10/30/22 History predniSONE 10 mg PO DAILY 10/30/22 10/30/22 History Allergies Allergy/AdvReac Type Severity Reaction Status Date / Time carboplatin Allergy Anaphylaxis Verified 10/30/22 17:28 hydromorphone [From Dilaudid] AdvReac falls Verified 10/30/22 17:28 asleep hard to arouse Physical Exam Vitals: Vital Signs Temp Pulse Pulse Resp BP BP Pulse Ox 10/31/22 13:06 113 H 10/31/22 12:50 106 H 10/31/22 12:34 110 H 10/31/22 11:16 113 H 26 H 136/80 92 L 10/31/22 09:12 104 H 10/31/22 08:56 102 H 10/31/22 08:55 104 H 10/31/22 08:42 106 H 95 10/31/22 08:06 98.2 F 108 H 24 115/71 94 L 10/31/22 03:58 110 H 20 104/58 96 10/31/22 00:00 107 H 20 95/48 92 L 10/30/22 22:41 110 H 10/30/22 22:15 108 H 10/30/22 20:00 97.9 F 107 H 16 104/67 93 L 10/30/22 17:33 98.8 F 112 H 28 H 136/83 95 10/30/22 17:23 112 H 28 H 10/30/22 17:02 111 H 18 107/73 96 10/30/22 16:29 112 H 10/30/22 16:20 110 H 10/30/22 13:29 100 20 146/78 96 Intake and Output 10/30/22 10/31/22 10/31/22 22:59 06:59 14:59 Intake Total 540 1080 658 Output Total 2250 700 350 Balance -1710 380 308 Intake: Oral 540 1080 658 Output: Urine 2250 700 350 Other: Voiding Method Toilet Toilet Toilet Bedside Commode Bedside Commode Bedside Commode Weight 86.636 kg 87.3 kg - Constitutional General appearance: average body habitus, cooperative, no acute distress - EENT Eyes: EOMI - Respiratory Respiratory: bilateral: wheezing ([place] in upper and lower lung herr with associated coughing) - Cardiovascular Rhythm: regular - Gastrointestinal General gastrointestinal: no distended, soft - Integumentary Integumentary: no rash - Neurologic Neurologic: CNII-XII intact - Psychiatric Psychiatric: A&O x's 3, appropriate affect Results CBC & Chem 7: 06/17/23 11:45 10/30/22 11:45 Labs: Abnormal Lab Results - Last 24 Hours (Table) 10/30/22 10/30/22 10/30/22 Range/Units 11:45 18:08 20:26 POC Glucose (mg/dL) 267 H 257 H (70-110) mg/dL Triglycerides 189.00 H (0.00-149.00) mg/dL HDL Cholesterol 67.90 H (40.00-60.00) mg/dL 10/31/22 10/31/22 Range/Units 06:18 11:40 POC Glucose (mg/dL) 227 H 252 H (70-110) mg/dL Triglycerides (0.00-149.00) mg/dL HDL Cholesterol (40.00-60.00) mg/dL Abdominal x-ray: report reviewed, image reviewed CT scan - chest: report reviewed, image reviewed Assessment and Plan (1) Primary malignant neoplasm of ovary with widespread metastatic disease Current Visit: Yes Status: Chronic Code(s): C56.9 - MALIGNANT NEOPLASM OF UNSPECIFIED OVARY; C80.0 - DISSEMINATED MALIGNANT NEOPLASM, UNSPECIFIED SNOMED Code(s): 687022602 (2) Acute bronchospasm Current Visit: Yes Status: Acute Code(s): J98.01 - ACUTE BRONCHOSPASM SNOMED Code(s): 58988051599026 (3) Macrocytic anemia Current Visit: Yes Status: Chronic Code(s): D53.9 - NUTRITIONAL ANEMIA, UNSPECIFIED SNOMED Code(s): 71319973 Plan: #Wheezing, dyspnea -Developed after completing prednisone taper lasting 15 days following previous admission from 10/07/2022 -Denies any fevers, chills, or sick contacts -CT PE with no evidence of pulmonary embolism or radiographic evidence concerning for infection with small bilateral pleural effusions and small pericardial effusion -Improved after receiving IV methylprednisolone and DuoNeb breathing treatments -Given the recurrence of symptoms after discontinuing prednisone taper, this could be due to pneumonitis from Zejula (niraparib) that was discontinued on 09/10/2022 -Agree with current medical management with IV methylprednisolone, DuoNebs, and Lasix -Agree with cardiology consultation and pending echocardiogram read with echo done in the ED -On discharge, she will need a prolonged steroid taper lasting around 6 weeks #Macrocytic anemia -Hemoglobin not significantly changed from baseline from last admission -Macrocytic anemia is likely due to prior treatment from chemotherapy -We will work-up other potential causes to make sure there is no other unde rlying etiologies that could be reversible to help optimize her breathing status -TSH/free T4, vitamin B12, folic acid, and iron studies ordered #Metastatic ovarian adenocarcinoma: -She currently is following with Dr. Thibodeaux and Dr. Cerda. She completed 7 cycles of Doxil/carbo in February 2022, and started maintenance Zejula 05/2022. -CT CAP from 07/12/22 showed scattered abdominal lymphadenopathy and new right middle lobe 14 mm nodule with soft tissue around the right pulmonary hilum and extends along right trachea. PET scan on 07/23/2022 showed pulmonary mediastinal lymphadenopathy, lower neck lymphadenopathy, intra-abdominal lymphadenopathy including mesentery, gastrohepatic ligament and gisele hepatis. Findings likely relating to ovarian cancer, as pulmonary nodule demonstrated FDG activity below background levels. -Pericardial fluid and pericardium biopsy obtained 08/05, were positive for metastatic ovarian carcinoma -Zejula stopped on 09/10/2022 -She has met with her gynecologic oncologist Dr. Thibodeaux on 10/15/2022, who recommended optimizing her pulmonary function prior to proceeding with additional treatment -She has a follow-up appointment on 11/12/2022 for clinical reassessment and decision for systemic treatment at that time. There is a consideration for rechallenging with chemehuevi based chemotherapy if this is available due to the national shortage, for which she would require desensitization due to her previous anaphylactic reaction to carboplatin We will continue to follow.
[2022-10-31] MEDS: IBUPROFEN 400 MG TAB PO PRN ×2 (14:40→21:09)
[2022-10-31 16:20] LABS: Glucose,Whole Blood 244 mg/dL (70-110)
[2022-10-31 20:41] LABS: Glucose,Whole Blood 254 mg/dL (70-110)
[2022-10-31] MEDS: LORATADINE 10 MG TAB PO SCH (21:06)
[2022-11-01] MEDS: methylPREDNISolone SOD SUCCI 125 MG/2 ML VIAL IV SCH ×4 (01:06→17:24)
[2022-11-01 05:54] LABS: Glucose,Whole Blood 287 mg/dL (70-110)
[2022-11-01] MEDS: FUROSEMIDE 10 MG/ML 2 ML VIAL IV SCH ×2 (06:04→17:24)
[2022-11-01] MEDS: IBUPROFEN 400 MG TAB PO PRN (06:04)
[2022-11-01] MEDS: INSULIN ASPART (NovoLOG) 100 UNIT/ML VIAL SQ SCH ×4 (06:04→21:18)
[2022-11-01] MEDS: IPRATROPIUM-ALBUTEROL 3 ML NEB INHALATION PRN (06:21)
[2022-11-01 08:21] LABS: Anisocytosis Slight; Basophils % (A) 0 %; Eosinophils % (A) 0 %; HCT 30.3 % (34.0-46.0); HGB 9.5 gm/dL (11.4-16.0); Hypochromasia Slight; Lymphocytes # (A) 0.7 k/uL (1.0-4.8); Lymphocytes % (A) 5 %; MCH 32.2 pg (25.0-35.0); MCHC 31.5 g/dL (31.0-37.0); MCV 102.1 fL (80.0-100.0); Macrocytosis Slight; Mean Platelet Volume 7.6; Monocytes # (A) 0.3 k/uL (0-1.0); Monocytes % (A) 2 %; Neutrophils # (A) 14.6 k/uL (1.3-7.7); Neutrophils % (A) 93 %; Platelet Count 256 k/uL (150-450); Poikilocytosis Slight; RBC 2.96 m/uL (3.80-5.40); RDW 16.9 % (11.5-15.5); WBC 15.7 k/uL (3.8-10.6)
[2022-11-01 08:45] LABS: ALT 21 U/L (4-34); AST 24 U/L (14-36); African American GFR (CKD) 90 (>60 ml/min/1.73 sqM); Albumin 3.8 g/dL (3.5-5.0); Alkaline Phosphatase 87 U/L (38-126); Anion Gap 13 mmol/L; Blood Urea Nitrogen 20 mg/dL (7-17); Calcium 8.9 mg/dL (8.4-10.2); Carbon Dioxide 25 mmol/L (22-30); Chloride 89 mmol/L (98-107); Glucose 300 mg/dL (74-99); Non-African American GFR(CKD) 78 (>60 ml/min/1.73 sqM); Potassium 3.6 mmol/L (3.5-5.1); Sodium 127 mmol/L (137-145); Total Bilirubin 0.7 mg/dL (0.2-1.3)
[2022-11-01] MEDS: FORMOTEROL FUMARATE 20 MCG/2 ML NEBU INHALATION SCH ×2 (09:24→21:10)
[2022-11-01] MEDS: BUDESONIDE 1 MG/2 ML NEBU INHALATION SCH ×2 (09:24→21:11)
[2022-11-01] MEDS: IPRATROPIUM-ALBUTEROL 3 ML NEB INHALATION SCH ×4 (09:24→21:10)
[2022-11-01] MEDS: BENZONATATE 100 MG CAP PO SCH ×3 (09:47→21:18)
[2022-11-01] MEDS: FAMOTIDINE 20 MG TAB PO SCH ×2 (09:47→21:18)
[2022-11-01] MEDS: FLUTICASONE 50MCG/SPRAY NASAL 16GM EA NOSTRIL SCH ×2 (09:47→21:17)
[2022-11-01] MEDS: ASPIRIN 325 MG TAB PO SCH (09:47)
[2022-11-01] MEDS: NYSTATIN 100,000 UNIT/ML SUSP 500,000 UNIT/5 ML CUP PO SCH ×4 (09:48→21:17)
--- NOTE | 2022-11-01 11:21 | P.PN ---
Subjective Progress Note Date: 11/01/22 This is an unfortunate 57-year-old female patient with a past medical history significant for history of ovarian cancer with metastasis she was maintained on oral chemotherapy until recently as well as history of chronic hypoxic respiratory failure apparently related to side effect of the maintenance therapy as well as history of pericardial effusion status post pericardial window. The patient presented to the hospital complaining of shortness of breath started about a week ago. Recently she was diagnosed with chronic hypoxic respiratory failure and she was started on oxygen and continues to follow-up with painter helper spray regularly. She was started on steroid and the maintenance chemotherapy was stopped and subsequently she felt better today about a week ago when she started experiencing increasing in the shortness of breath associated with wheezing as well as cough productive of whitish sputum with no fever or chills and no symptoms of chest pain or chest discomfort but she has been experi encing easy in the lower extremities edema lately. No dizziness or lightheadedness and no feeling of heart racing or fluttering and no presyncope or syncope. She presented to the hospital for further evaluation. She underwent a workup including EKG showing sinus mechanism with sinus tachycardia with low-voltage QRS and also she underwent cardiac enzymes came in to be unremarkable and computed tomography scan of the chest showing no evidence of pulmonary embolism but she was found to have small bilateral pleural effusion and small pericardial effusion as well as pulmonary vascular congestions patent and the proBNP is about 800. Currently she is on oxygen to maintain her saturation above 90%. She was on oxygen as an outpatient. She was started on Lasix. An echocardiogram is in process to be done. Currently she is on Lasix 20 mg IV twice a day 11/01 Patient is seen today in follow-up. Echocardiogram is currently pending. Patient continues to have shortness of breath. Heart rate is 103, blood pressure 108/69. The blood work reveals WBC 15.7, hemoglobin 9.5, sodium is 127, creatinine 0.84. Examination is remarkable or stable vital signs with bilateral expiratory wheezing and bilateral lower extremity edema Assessment Acute on chronic hypoxic respiratory failure Pericardial effusion on the computed tomography scan of the chest. History of pericardial window recently. History of ovarian cancer with metastasis Multiple comorbid conditions Hyponatremia Anemia Plan Continue the current medical regimen The echocardiogram is in process to be done Carefully watching the blood pressure in the light of being on diuretics Monitor kidney function and electrolytes EF echocardiogram is unremarkable, cardiology will sign off and follow on an as- needed basis. Nurse practitioner note has been reviewed, I agree with the documented findings and plan of care. Patient was seen and examined. Objective - Vital Signs Vital signs: Vital Signs Temp 97.3 F L 11/01/22 09:43 Pulse 103 H 11/01/22 09:47 Resp 20 11/01/22 09:47 BP 108/69 11/01/22 09:43 Pulse Ox 98 11/01/22 09:43 FiO2 Intake & Output 10/31/22 11/01/22 11/01/22 18:59 06:59 18:59 Intake Total 658 180 Output Total 800 800 Balance -142 -800 180 Intake: Oral 658 180 Output: Urine 800 800 Other: Voiding Method Toilet Toilet Toilet Bedside Commode Bedside Commode Bedside Commode - Labs CBC & Chem 7: 11/01/22 07:48 11/01/22 07:48 Labs: Abnormal Lab Results - Last 24 Hours (Table) 10/30/22 10/31/22 10/31/22 Range/Units 11:45 11:40 16:18 WBC (3.8-10.6) k/uL RBC (3.80-5.40) m/uL Hgb (11.4-16.0) gm/dL Hct (34.0-46.0) % MCV (80.0-100.0) fL RDW (11.5-15.5) % Neutrophils # (1.3-7.7) k/uL Lymphocytes # (1.0-4.8) k/uL Sodium (137-145) mmol/L Chloride (98-107) mmol/L BUN (7-17) mg/dL Glucose (74-99) mg/dL POC Glucose (mg/dL) 252 H 244 H (70-110) mg/dL Triglycerides 189.00 H (0.00-149.00) mg/dL HDL Cholesterol 67.90 H (40.00-60.00) mg/dL 10/31/22 11/01/22 11/01/22 Range/Units 20:39 05:52 07:48 WBC 15.7 H (3.8-10.6) k/uL RBC 2.96 L (3.80-5.40) m/uL Hgb 9.5 L (11.4-16.0) gm/dL Hct 30.3 L (34.0-46.0) % MCV 102.1 H (80.0-100.0) fL RDW 16.9 H (11.5-15.5) % Neutrophils # 14.6 H (1.3-7.7) k/uL Lymphocytes # 0.7 L (1.0-4.8) k/uL Sodium (137-145) mmol/L Chloride (98-107) mmol/L BUN (7-17) mg/dL Glucose (74-99) mg/dL POC Glucose (mg/dL) 254 H 287 H (70-110) mg/dL Triglycerides (0.00-149.00) mg/dL HDL Cholesterol (40.00-60.00) mg/dL 11/01/22 Range/Units 07:48 WBC (3.8-10.6) k/uL RBC (3.80-5.40) m/uL Hgb (11.4-16.0) gm/dL Hct (34.0-46.0) % MCV (80.0-100.0) fL RDW (11.5-15.5) % Neutrophils # (1.3-7.7) k/uL Lymphocytes # (1.0-4.8) k/uL Sodium 127 L (137-145) mmol/L Chloride 89 L (98-107) mmol/L BUN 20 H (7-17) mg/dL Glucose 300 H (74-99) mg/dL POC Glucose (mg/dL) (70-110) mg/dL Triglycerides (0.00-149.00) mg/dL HDL Cholesterol (40.00-60.00) mg/dL Microbiology - Last 24 Hours (Table) 10/30/22 11:30 Blood Culture - Preliminary Blood 10/30/22 11:38 Blood Culture - Preliminary Blood
--- NOTE | 2022-11-01 11:22 | P.PN ---
Subjective Progress Note Date: 11/01/22 Principal diagnosis: Shortness of breath, difficulty breathing. Metastatic ovarian carcinoma. In follow-up today patient states that she is unable to lay flat to sleep due to coughing, she had a terrible coughing episode last evening. Pending Pulmonary assessment and evaluation. She reports that her cough is very weak, she is only able to expectorate a small amount of yellow sputum. No wheezing persist today. She denies chest pain or palpitations. Objective - Vital Signs Vital signs: Vital Signs Temp 97.3 F L 11/01/22 09:43 Pulse 103 H 11/01/22 09:47 Resp 20 11/01/22 09:47 BP 108/69 11/01/22 09:43 Pulse Ox 98 11/01/22 09:43 FiO2 Intake & Output 10/31/22 11/01/22 11/01/22 18:59 06:59 18:59 Intake Total 658 180 Output Total 800 800 Balance -142 -800 180 Intake: Oral 658 180 Output: Urine 800 800 Other: Voiding Method Toilet Toilet Toilet Bedside Commode Bedside Commode Bedside Commode - Constitutional General appearance: Present: average body habitus, cooperative, no acute distress - EENT Eyes: Present: anicteric sclerae, EOMI ENT: Present: hearing grossly normal - Respiratory Respiratory: bilateral: wheezing (scattered) - Cardiovascular Rhythm: regular Heart sounds: normal: S1, S2 Abnormal Heart Sounds: Absent: systolic murmur, diastolic murmur, rub, S3 Gallop, S4 Gallop, click, other - Peripheral edema leg Peripheral Edema: bilateral: None - Gastrointestinal General gastrointestinal: Present: normal bowel sounds, soft - Integumentary Integumentary: Present: normal - Neurologic Neurologic: Present: CNII-XII intact - Musculoskeletal Musculoskeletal: Present: strength equal bilaterally - Psychiatric Psychiatric: Present: A&O x's 3, appropriate affect, intact judgment & insight - Labs CBC & Chem 7: 11/01/22 07:48 11/01/22 07:48 Labs: Abnormal Lab Results - Last 24 Hours (Table) 10/30/22 10/31/22 10/31/22 Range/Units 11:45 11:40 16:18 WBC (3.8-10.6) k/uL RBC (3.80-5.40) m/uL Hgb (11.4-16.0) gm/dL Hct (34.0-46.0) % MCV (80.0-100.0) fL RDW (11.5-15.5) % Neutrophils # (1.3-7.7) k/uL Lymphocytes # (1.0-4.8) k/uL Sodium (137-145) mmol/L Chloride (98-107) mmol/L BUN (7-17) mg/dL Glucose (74-99) mg/dL POC Glucose (mg/dL) 252 H 244 H (70-110) mg/dL Triglycerides 189.00 H (0.00-149.00) mg/dL HDL Cholesterol 67.90 H (40.00-60.00) mg/dL 10/31/22 11/01/22 11/01/22 Range/Units 20:39 05:52 07:48 WBC 15.7 H (3.8-10.6) k/uL RBC 2.96 L (3.80-5.40) m/uL Hgb 9.5 L (11.4-16.0) gm/dL Hct 30.3 L (34.0-46.0) % MCV 102.1 H (80.0-100.0) fL RDW 16.9 H (11.5-15.5) % Neutrophils # 14.6 H (1.3-7.7) k/uL Lymphocytes # 0.7 L (1.0-4.8) k/uL Sodium (137-145) mmol/L Chloride (98-107) mmol/L BUN (7-17) mg/dL Glucose (74-99) mg/dL POC Glucose (mg/dL) 254 H 287 H (70-110) mg/dL Triglycerides (0.00-149.00) mg/dL HDL Cholesterol (40.00-60.00) mg/dL 11/01/22 Range/Units 07:48 WBC (3.8-10.6) k/uL RBC (3.80-5.40) m/uL Hgb (11.4-16.0) gm/dL Hct (34.0-46.0) % MCV (80.0-100.0) fL RDW (11.5-15.5) % Neutrophils # (1.3-7.7) k/uL Lymphocytes # (1.0-4.8) k/uL Sodium 127 L (137-145) mmol/L Chloride 89 L (98-107) mmol/L BUN 20 H (7-17) mg/dL Glucose 300 H (74-99) mg/dL POC Glucose (mg/dL) (70-110) mg/dL Triglycerides (0.00-149.00) mg/dL HDL Cholesterol (40.00-60.00) mg/dL Microbiology - Last 24 Hours (Table) 10/30/22 11:30 Blood Culture - Preliminary Blood 10/30/22 11:38 Blood Culture - Preliminary Blood Assessment and Plan (1) Acute bronchospasm Current Visit: Yes Status: Acute Priority: High Code(s): J98.01 - ACUTE BRONCHOSPASM SNOMED Code(s): 30783021181140 (2) Primary malignant neoplasm of ovary with widespread metastatic disease Current Visit: Yes Status: Chronic Priority: Medium Code(s): C56.9 - MALIGNANT NEOPLASM OF UNSPECIFIED OVARY; C80.0 - DISSEMINATED MALIGNANT NEOPLASM, UNSPECIFIED SNOMED Code(s): 474214036 Plan: Wheezing, dyspnea -Recurrent after completing prednisone taper from admit 10/07/2022 -CTA chest no PE or concerns for infectious process, she does have sm bilateral pleural effusions and small pericardial effusion. Reviewed Pulm assessment and recommendations -Breathing stable-no significant improvement today, she cont on solumedrol and breathing treatments -Suspicions for pneumonitis 2/2 niraparib treatment. Discontinued 09/10/2022. May require a prolonged steroid taper to recover Macrocytic anemia -Hgb near baseline, stable today, 9.5 -Macrocytosis likely due to Hx of chemotherapy -TSH/free T4, vitamin B12, folic acid, and iron studies pending -transfuse if symptomatic or Hgb <7. Metastatic ovarian adenocarcinoma: -Follows with Dr. Thibodeaux and Dr. Cerda. -Completed 7 cycles of Doxil/carbo 03/06, maintenance Zejula 05/2022-09/10/22 -Pericardial fluid and pericardium biopsy obtained 08/05, were positive for meta static ovarian carcinoma, PET showed metastatic disease in July. -Dr. Thibodeaux recommended optimizing her pulmonary function prior to proceeding with additional treatment -F/U Dr. Thibodeaux 11/12/2022 for clinical reassessment and decision for systemic treatment at that time. Pt will keep that appt attests: I have seen and examined patient, performed H&P, and developed impression and plan of care. Discussed with dictator. Agree with documentation, dictated as a scribe
--- NOTE | 2022-11-01 11:28 | CA ---
Transthoracic Echo Report Name: Saloni Dent Age: 57 Gender: F : 1965 Exam Date: 10/30/2022 14:57 Exam Location: [facility] Ht (in): 66 Wt (lb): 191 Ordering Physician: Feliberto Shi MD Attending/Referring Phys: [employer] Supervisor Yareli Echeverria RDCS Procedure CPT: Indications: pulmonary edema Cardiac Hx: Hx of pericardial window in july 2022 Technical Quality: Fair Contrast 1: Total Dose (mL): Contrast 2: Total Dose (mL): MEASUREMENTS (Male / Female) Normal Values 2D ECHO LV Diastolic Diameter PLAX 4.1 cm 4.2 - 5.9 / 3.9 - 5.3 cm LV Systolic Diameter PLAX 2.7 cm IVS Diastolic Thickness 1.3 cm 0.6 - 1.0 / 0.6 - 0.9 cm LVPW Diastolic Thickness 1.0 cm 0.6 - 1.0 / 0.6 - 0.9 cm LV Relative Wall Thickness 0.6 RV Internal Dim ED PLAX 3.2 cm LA Systolic Diameter LX 3.1 cm 3.0 - 4.0 / 2.7 - 3.8 cm M-MODE Aortic Root Diameter MM 3.5 cm MV E Point Septal Separation 0.7 cm AV Cusp Separation MM 1.9 cm DOPPLER MV Area PHT 4.5 cm??? Mitral E Point Velocity 66.2 cm/s Mitral A Point Velocity 42.3 cm/s Mitral E to A Ratio 1.6 MV Deceleration Time 166.9 ms TR Peak Velocity 244.6 cm/s TR Peak Gradient 23.9 mmHg Right Ventricular Systolic Press 27.8 mmHg FINDINGS Left Ventricle Left ventricular ejection fraction is estimated at 55-60 %. Left ventricular cavity size normal. Mildly increased septal wall thickness. Mildly increased posterior wall thickness. Right Ventricle Normal right ventricular size. Right ventricular systolic pressure within normal limits. Right ventricular systolic pressure estimated at 28 mm hg. Right Atrium Normal right atrial size. Left Atrium Normal left atrial size. Mitral Valve Structurally normal mitral valve. No mitral stenosis, regurgitation or prolapse. Aortic Valve Trileaflet aortic valve. No aortic valve stenosis or regurgitation. Tricuspid Valve Structurally normal tricuspid valve. Mild tricuspid regurgitation. Pulmonic Valve Structurally normal pulmonic valve. Trace pulmonic regurgitation. Pericardium Moderate pericardial effusion. Pericardial effusion filled with fibrous strands. Aorta Normal size aortic root and proximal ascending aorta. CONCLUSIONS Technically difficult study for interpretation with poor acoustic windows Normal LV systolic function Moderate circumferential pericardial effusion Previewed by: Dr. Fermín Paz MD (Electronically Signed) Final Date: 31 October 2022 15:28
[2022-11-01 11:45] LABS: Glucose,Whole Blood 277 mg/dL (70-110)
--- NOTE | 2022-11-01 13:24 | CT ---
EXAMINATION TYPE: CT chest wo con DATE OF EXAM: 11/01/2022 COMPARISON: 10/30/2022 HISTORY: SOB, mets to lungs CT DLP: 1207.5 mGycm High-resolution noncontrast CT of the chest was performed with the patient in the prone and supine po sitions. Lung and mediastinal window settings are submitted. Bilateral pleural effusions are noted both being small in size in right greater than left. There are scattered groundglass infiltrates which may reflect acute inflammatory process. There is mild scatter ed subpleural fibrosis with bronchial wall thickening. Mild lower lobe bronchiectasis seen. Pericardi al effusion measuring 1.7 cm. There is mediastinal adenopathy has documented on prior CT of 09/30/2022 . Right upper lobe pulmonary nodule measures 1 cm. Increased density adjacent to the right cardiac pablito rder may reflect atelectasis or infiltrate seen previously. IMPRESSION: 1. Right upper lobe pulmonary nodule as described reflect a metastatic nodule versus primary malignan cy. 2. Bilateral effusions with scattered subpleural fibrosis and groundglass infiltrates. Bronchial wall thickening and mild bronchiectasis. 3. Pericardial effusion. 4. Mediastinal adenopathy not well characterized on this study.
--- NOTE | 2022-11-01 13:37 | P.PN ---
Subjective Progress Note Date: 11/01/22 57-year-old female with a history of metastatic ovarian carcinoma, who was seen in the emergency department, on October 30, complaining of shortness of breath, difficulty breathing, cough, chest congestion, and occasional phlegm production. She states that when she weaned herself off the prednisone, her respiratory complaints became worse. I saw her in consultation, September of this year. The patient previously was thought to have pneumonitis, secondary to her chemotherapeutic agent. Currently, the patient is on 2 L of nasal oxygen, with saturations in the mid 90s. She does not appear to be particularly short of breath, does not have any conversational dyspnea, or use of accessory muscles. The patient was given breathing treatments, corticosteroids, and antibiotics. The patient's chest x-ray showed cardiomegaly, mild pulmonary vascular congestion. CT angiogram that was performed, was negative for pulmonary embolism, showed small bilateral pleural effusions, as well as some upper abdominal lymphadenopathy, and a right middle lobe pulmonary nodule. White count is 8.1, hemoglobin 10, hematocrit 31.3, with a platelet count of 210,000. D-dimer was elevated at 1.85. Sodium 128, potassium 4.3, chlorides 96, CO2 22, BUN 9, creatinine 0.58. The rest of the comprehensive metabolic profile is essentially normal. On today's evaluation of 11/01/2022, the patient is feeling slightly better c ompared to yesterday. She remains on steroids. The exact cause for her shortness of breath and persistent cough is not clear. The patient is currently having difficulties in laying down flat because of shortness of breath. 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 The patient was originally diagnosed in 2008 has received multiple treatments, most recently on Zejula started in May 2022 after 7 cycles of Doxil/carboplatin in February 2022 with recent imaging in September 2022 revealing evidence of disease progression who presents for a cute dyspnea. She was hospitalized from 10/04/2022 through 10/07/2022 for dyspnea at that time, which was thought to be related to pneumonia. She did discontinue Zejula 3 weeks prior to her admission. On discharge, she was placed on a steroid taper lasting approximately 15 days and did not have any respiratory issues during this time. After completing the steroid taper, she developed increased dyspnea with wheezing. I reviewed the CAT scans of the chest and I I think it'll be worthwhile for this patient to undergo a high-resolution CAT scan of the chest to assess for any parenchymal progression of tumor versus drug- induced pneumonitis and is same time I discussed with her the potential of that having a biopsy. She is receiving IV Solu-Medrol 60 mg every 6 hours for now. The patient's WBC count is at 15.7 with a hemoglobin 9.5. Sodium is at 127. The ends of 20 with a creatinine 0.8. LFTs are within normal limits. Objective - Vital Signs Vital signs: Vital Signs Temp 97.3 F L 11/01/22 09:43 Pulse 103 H 11/01/22 09:47 Resp 20 11/01/22 09:47 BP 108/69 11/01/22 09:43 Pulse Ox 98 11/01/22 09:43 FiO2 Intake & Output 10/31/22 11/01/22 11/01/22 18:59 06:59 18:59 Intake Total 658 180 Output Total 800 800 Balance -142 -800 180 Intake: Oral 658 180 Output: Urine 800 800 Other: Voiding Method Toilet Toilet Toilet Bedside Commode Bedside Commode Bedside Commode - Exam No acute distress, oriented 3. Currently on 2 L. No conversational dyspnea or use of accessory muscles. The patient is currently on 2 L of O2 nasal cannula HEENT examination is grossly unremarkable. Mucous membranes are moist. No oral lesions. Neck supple. Full range of motion. No adenopathy thyromegaly or neck vein distention. Cardiovascular examination reveals regular rhythm rate. S1-S2 normal. No S3 or S4. No discernible murmur noted. Lungs reveal scattered rhonchi. No wheezes or crackles. Breath sounds equal bilaterally. Crackles are appreciated in lung bases bilaterally Abdomen soft bowel sounds are heard. No masses or tenderness. Extremities are intact. No cyanosis or clubbing. Trace lower extremity edema. Skin is without rash or lesion. Neurologic examination is brief but nonfocal. - Labs CBC & Chem 7: 11/01/22 07:48 11/01/22 07:48 Labs: Abnormal Lab Results - Last 24 Hours (Table) 10/30/22 10/31/22 10/31/22 Range/Units 11:45 11:40 16:18 WBC (3.8-10.6) k/uL RBC (3.80-5.40) m/uL Hgb (11.4-16.0) gm/dL Hct (34.0-46.0) % MCV (80.0-100.0) fL RDW (11.5-15.5) % Neutrophils # (1.3-7.7) k/uL Lymphocytes # (1.0-4.8) k/uL Sodium (137-145) mmol/L Chloride (98-107) mmol/L BUN (7-17) mg/dL Glucose (74-99) mg/dL POC Glucose (mg/dL) 252 H 244 H (70-110) mg/dL Triglycerides 189.00 H (0.00-149.00) mg/dL HDL Cholesterol 67.90 H (40.00-60.00) mg/dL 10/31/22 11/01/22 11/01/22 Range/Units 20:39 05:52 07:48 WBC 15.7 H (3.8-10.6) k/uL RBC 2.96 L (3.80-5.40) m/uL Hgb 9.5 L (11.4-16.0) gm/dL Hct 30.3 L (34.0-46.0) % MCV 102.1 H (80.0-100.0) fL RDW 16.9 H (11.5-15.5) % Neutrophils # 14.6 H (1.3-7.7) k/uL Lymphocytes # 0.7 L (1.0-4.8) k/uL Sodium (137-145) mmol/L Chloride (98-107) mmol/L BUN (7-17) mg/dL Glucose (74-99) mg/dL POC Glucose (mg/dL) 254 H 287 H (70-110) mg/dL Triglycerides (0.00-149.00) mg/dL HDL Cholesterol (40.00-60.00) mg/dL 11/01/22 Range/Units 07:48 WBC (3.8-10.6) k/uL RBC (3.80-5.40) m/uL Hgb (11.4-16.0) gm/dL Hct (34.0-46.0) % MCV (80.0-100.0) fL RDW (11.5-15.5) % Neutrophils # (1.3-7.7) k/uL Lymphocytes # (1.0-4.8) k/uL Sodium 127 L (137-145) mmol/L Chloride 89 L (98-107) mmol/L BUN 20 H (7-17) mg/dL Glucose 300 H (74-99) mg/dL POC Glucose (mg/dL) (70-110) mg/dL Triglycerides (0.00-149.00) mg/dL HDL Cholesterol (40.00-60.00) mg/dL Microbiology - Last 24 Hours (Table) 10/30/22 11:30 Blood Culture - Preliminary Blood 10/30/22 11:38 Blood Culture - Preliminary Blood Assessment and Plan Plan: Acute shortness of breath, likely multifactorial, acute bronchitis with bronc hospasm, as well as possible iatrogenic pneumonitis, related to Zejula. I'm also concerned about parenchymal lung involvement with ovarian cancer. The patient has shown limited response to systemic steroids. Infectious causes are felt to be less likely at this point in time. Acute hypoxic respiratory failure currently on 2 L of oxygen by nasal cannula Metastatic ovarian carcinoma, diagnosed in 2008, with recurrence. The patient has diffuse adenopathy, both in the abdominal cavity and thoracic cavity. Metastatic pulmonary nodule. History of malignant pericardial effusion, status post pericardial window. Plan: Plan dated 10/31/2022. A pro-calcitonin level will be checked. The level was at 0.09 and the level was low Continue steroids with IV Solu-Medrol 60 mg every 6 hours Continue bronchodilators High-resolution computed tomography scan of the chest May ultimately need a bronchoscopy and transbronchial biopsies to further narrow down the differential diagnosis. A bronchial lavage will be also needed to rule out infections. We'll continue to follow
[2022-11-01 16:51] LABS: Glucose,Whole Blood 235 mg/dL (70-110)
--- NOTE | 2022-11-01 18:44 | P.PN ---
Subjective Progress Note Date: 11/01/22 This is a 57-year-old female patient of Dr. Aguilar who presented with concerns of increased dyspnea. Patient reports that she was having improvement since previous admission with updraft and prednisone treatment but starts developing increased wheezing and shortness breath increasing over the past few days. patient has extensive medical history including ovarian cancer which was diagnosed 14 years ago and has been maintained on chemo therapy. Additional medical history includes previous episode of pericardial effusion with pericardial window. Chest x-ray showing cardiomegaly with mild pulmonary vascular congestion correlate with BMP for congestive heart failure. COPD changes. Chest CTA completed showing no evidence of pulmonary embolism U small bilateral pleural effusions him a new small pericardial effusion new pulmonary vascular congestion and cardiomegaly correlate with serum BNP. This time patient will be admitted patient's BREATHING treatments, IV Lasix, Solu-Medrol. Pulmonary cardiology and oncology services will be consulted. On 11/01/2022 patient was seen and examined on the telemetry floor she is alert and oriented 3 in no apparent distress she reports improvement in her shortness of breath otherwise she denies any complaints there is no fever or chills no headache or dizziness no chest pain no palpitation no nausea or vomiting no abdominal pain no diarrhea no blood in the stools no burning with urination no frequency or urgency and no hematuria Objective - Vital Signs Vital signs: Vital Signs Temp 97.7 F 11/01/22 15:37 Pulse 101 H 11/01/22 16:02 Resp 20 11/01/22 16:02 BP 107/74 11/01/22 15:37 Pulse Ox 95 11/01/22 15:37 FiO2 Intake & Output 10/31/22 11/01/22 11/01/22 18:59 06:59 18:59 Intake Total 658 990 Output Total 800 800 500 Balance -142 -800 490 Intake: Oral 658 990 Output: Urine 800 800 500 Other: Voiding Method Toilet Toilet Toilet Bedside Commode Bedside Commode Bedside Commode # Voids 1 - Exam In general patient is alert and oriented x 3 in no distress HEENT head normocephalic and atraumatic Neck is supple no JVD no goiter no lymphadenopathy no carotid bruit Chest examination is clear to auscultation no crackles no wheezing Cardiac exam reveals regular heart sounds S1 and S2 no gallops no murmurs Abdomen is soft nontender no organomegaly with normal bowel sounds Extremity exam reveals no edema no cyanosis or clubbing Neurological examination reveals no gross focal deficits - Labs CBC & Chem 7: 11/01/22 07:48 11/01/22 07:48 Labs: Abnormal Lab Results - Last 24 Hours (Table) 10/31/22 11/01/22 11/01/22 Range/Units 20:39 05:52 07:48 WBC 15.7 H (3.8-10.6) k/uL RBC 2.96 L (3.80-5.40) m/uL Hgb 9.5 L (11.4-16.0) gm/dL Hct 30.3 L (34.0-46.0) % MCV 102.1 H (80.0-100.0) fL RDW 16.9 H (11.5-15.5) % Neutrophils # 14.6 H (1.3-7.7) k/uL Lymphocytes # 0.7 L (1.0-4.8) k/uL Sodium (137-145) mmol/L Chloride (98-107) mmol/L BUN (7-17) mg/dL Glucose (74-99) mg/dL POC Glucose (mg/dL) 254 H 287 H (70-110) mg/dL 11/01/22 11/01/22 11/01/22 Range/Units 07:48 11:43 16:49 WBC (3.8-10.6) k/uL RBC (3.80-5.40) m/uL Hgb (11.4-16.0) gm/dL Hct (34.0-46.0) % MCV (80.0-100.0) fL RDW (11.5-15.5) % Neutrophils # (1.3-7.7) k/uL Lymphocytes # (1.0-4.8) k/uL Sodium 127 L (137-145) mmol/L Chloride 89 L (98-107) mmol/L BUN 20 H (7-17) mg/dL Glucose 300 H (74-99) mg/dL POC Glucose (mg/dL) 277 H 235 H (70-110) mg/dL Microbiology - Last 24 Hours (Table) 10/30/22 11:30 Blood Culture - Preliminary Blood 10/30/22 11:38 Blood Culture - Preliminary Blood Assessment and Plan Assessment: 1. Acute on chronic hypoxic respiratory failure 2. Pericardial effusion on computed tomography scan of the chest 3. History of pericardial window 4. History of ovarian cancer with metastatic disease 5. Bronchospasms 6. History of oral thrush Pulmonary cardiology service is consulted 2-D echo completed Maintained on IV Lasix, IV steroids and DuoNeb breathing treatmen treatments.
[2022-11-01 20:17] LABS: Glucose,Whole Blood 244 mg/dL (70-110)
[2022-11-01] MEDS: LORATADINE 10 MG TAB PO SCH (21:18)
[2022-11-02] MEDS: methylPREDNISolone SOD SUCCI 125 MG/2 ML VIAL IV SCH ×5 (00:18→20:57)
[2022-11-02 05:55] LABS: Glucose,Whole Blood 290 mg/dL (70-110)
[2022-11-02] MEDS: FUROSEMIDE 10 MG/ML 2 ML VIAL IV SCH ×2 (06:04→17:59)
[2022-11-02] MEDS: INSULIN ASPART (NovoLOG) 100 UNIT/ML VIAL SQ SCH ×4 (06:05→20:41)
[2022-11-02] MEDS: IPRATROPIUM-ALBUTEROL 3 ML NEB INHALATION SCH ×4 (08:15→20:27)
[2022-11-02] MEDS: FORMOTEROL FUMARATE 20 MCG/2 ML NEBU INHALATION SCH ×2 (08:15→20:27)
[2022-11-02] MEDS: BUDESONIDE 1 MG/2 ML NEBU INHALATION SCH ×2 (08:15→20:27)
[2022-11-02] MEDS: NYSTATIN 100,000 UNIT/ML SUSP 500,000 UNIT/5 ML CUP PO SCH ×4 (08:19→20:35)
[2022-11-02] MEDS: BENZONATATE 100 MG CAP PO SCH ×4 (08:25→22:25)
[2022-11-02] MEDS: DOCUSATE 100 MG CAP PO PRN (08:25)
[2022-11-02] MEDS: ASPIRIN 325 MG TAB PO SCH (08:25)
[2022-11-02] MEDS: FAMOTIDINE 20 MG TAB PO SCH ×2 (08:25→20:33)
[2022-11-02] MEDS: FLUTICASONE 50MCG/SPRAY NASAL 16GM EA NOSTRIL SCH ×2 (08:26→20:33)
[2022-11-02 11:25] LABS: Glucose,Whole Blood 317 mg/dL (70-110)
--- NOTE | 2022-11-02 12:13 | P.PN ---
Subjective Progress Note Date: 11/02/22 57-year-old female with a history of metastatic ovarian carcinoma, who was seen in the emergency department, on October 30, complaining of shortness of breath, difficulty breathing, cough, chest congestion, and occasional phlegm production. She states that when she weaned herself off the prednisone, her respiratory complaints became worse. I saw her in consultation, September of this year. The patient previously was thought to have pneumonitis, secondary to her chemotherapeutic agent. Currently, the patient is on 2 L of nasal oxygen, with saturations in the mid 90s. She does not appear to be particularly short of breath, does not have any conversational dyspnea, or use of accessory muscles. The patient was given breathing treatments, corticosteroids, and antibiotics. The patient's chest x-ray showed cardiomegaly, mild pulmonary vascular congestion. CT angiogram that was performed, was negative for pulmonary embolism, showed small bilateral pleural effusions, as well as some upper abdominal lymphadenopathy, and a right middle lobe pulmonary nodule. White count is 8.1, hemoglobin 10, hematocrit 31.3, with a platelet count of 210,000. D-dimer was elevated at 1.85. Sodium 128, potassium 4.3, chlorides 96, CO2 22, BUN 9, creatinine 0.58. The rest of the comprehensive metabolic profile is essentially normal. On today's evaluation of 11/01/2022, the patient is feeling slightly better c ompared to yesterday. She remains on steroids. The exact cause for her shortness of breath and persistent cough is not clear. The patient is currently having difficulties in laying down flat because of shortness of breath. 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 The patient was originally diagnosed in 2008 has received multiple treatments, most recently on Zejula started in May 2022 after 7 cycles of Doxil/carboplatin in February 2022 with recent imaging in September 2022 revealing evidence of disease progression who presents for a cute dyspnea. She was hospitalized from 10/04/2022 through 10/07/2022 for dyspnea at that time, which was thought to be related to pneumonia. She did discontinue Zejula 3 weeks prior to her admission. On discharge, she was placed on a steroid taper lasting approximately 15 days and did not have any respiratory issues during this time. After completing the steroid taper, she developed increased dyspnea with wheezing. I reviewed the CAT scans of the chest and I I think it'll be worthwhile for this patient to undergo a high-resolution CAT scan of the chest to assess for any parenchymal progression of tumor versus drug- induced pneumonitis and is same time I discussed with her the potential of that having a biopsy. She is receiving IV Solu-Medrol 60 mg every 6 hours for now. The patient's WBC count is at 15.7 with a hemoglobin 9.5. Sodium is at 127. The ends of 20 with a creatinine 0.8. LFTs are within normal limits. On today's evaluation of 11/02/2022, the patient is feeling much better compared to yesterday. Shortness of breath and cough is essentially improving. The patient underwent a HRCT of the chest yesterday and it showed a right upper lobe pulmonary nodule a reflect elevated previously metastatic nodule in addition to somebody some lymphadenopathy not well characterized on this study. The patient had bilateral pleural effusions and evidence of some limited subpleural groundglass pulmonary infiltrates. There is also evidence of bronchial wall thickening and mild bronchiectasis. As such, there is no significant airspace disease. No clear indication of parenchymal lung abnormalities to suggest parenchymal lung invasion with malignancy. No evidence of any active pneumonia at this point in time. The patient remains on IV Solu-Medrol. Blood sugar is elevated at 317. The patient is receiving IV Solu-Medrol and she is receiving 60 mg every 6 hours. She is on insulin by scale coverage. Cough is subsiding. Objective - Vital Signs Vital signs: Vital Signs Temp 97.5 F L 11/02/22 08:21 Pulse 100 11/02/22 08:44 Resp 22 11/02/22 08:22 BP 107/76 11/02/22 08:21 Pulse Ox 99 11/02/22 08:21 FiO2 Intake & Output 11/01/22 11/02/22 11/02/22 18:59 06:59 18:59 Intake Total 990 540 118 Output Total 500 1200 900 Balance 858 -668 -892 Weight 86.6 kg Intake: Oral 990 540 118 Output: Urine 500 1200 900 Other: Voiding Method Toilet Toilet Toilet Bedside Commode Bedside Commode Bedside Commode # Voids 1 3 2 - Exam No acute distress, oriented 3. Currently on 2 L. No conversational dyspnea or use of accessory muscles. The patient is currently on 2 L of O2 nasal cannula HEENT examination is grossly unremarkable. Mucous membranes are moist. No oral lesions. Neck supple. Full range of motion. No adenopathy thyromegaly or neck vein distention. Cardiovascular examination reveals regular rhythm rate. S1-S2 normal. No S3 or S4. No discernible murmur noted. Lungs reveal scattered rhonchi. No wheezes or crackles. Breath sounds equal bilaterally. Crackles are appreciated in lung bases bilaterally Abdomen soft bowel sounds are heard. No masses or tenderness. Extremities are intact. No cyanosis or clubbing. Trace lower extremity edema. Skin is without rash or lesion. Neurologic examination is brief but nonfocal. - Labs CBC & Chem 7: 11/01/22 07:48 11/01/22 07:48 Labs: Abnormal Lab Results - Last 24 Hours (Table) 11/01/22 11/01/22 11/01/22 Range/Units 11:43 16:49 20:16 POC Glucose (mg/dL) 277 H 235 H 244 H (70-110) mg/dL 11/02/22 Range/Units 05:52 POC Glucose (mg/dL) 290 H (70-110) mg/dL Microbiology - Last 24 Hours (Table) 10/30/22 11:30 Blood Culture - Preliminary Blood 10/30/22 11:38 Blood Culture - Preliminary Blood Assessment and Plan Plan: Acute shortness of breath, likely multifactorial, acute bronchitis with bronchospasm, as well as possible iatrogenic pneumonitis, related to Zejula. I'm also concerned about parenchymal lung involvement with ovarian cancer. The patient has shown limited response to systemic steroids. Infectious causes are felt to be less likely at this point in time. The patient is clinically improving. The patient responded to steroids. CAT scan of the chest shows no major abnormalities and there is some limited Bilateral pleural effusions in the lung base bilaterally. There is bilateral pleural effusion small lung with mediastinal lymphadenopathy and a right upper lobe pulmonary nodule. Acute hypoxic respiratory failure currently on 2 L of oxygen by nasal cannula Metastatic ovarian carcinoma, diagnosed in 2008, with recurrence. The patient has diffuse adenopathy, both in the abdominal cavity and thoracic cavity. Metastatic pulmonary nodule. History of malignant pericardial effusion, status post pericardial window. Plan: Plan A pro-calcitonin level will be checked. The level was at 0.09 and the level was low Continue steroids with IV Solu-Medrol 60 mg every 6 hours, the patient is a 20 to systemic steroids Continue bronchodilators High-resolution computed tomography scan of the chest showed no evidence of any ILD or any other parenchymal lung abnormalities to suggest parenchymal lung infiltration with tumor May ultimately need a bronchoscopy and transbronchial biopsies to further narrow down the differential diagnosis. A bronchial lavage will be also needed to rule out infections. Based on the progress, the patient is improving and I'm going to hold off the bronchoscopy as long as the patient is showing positive signs of response to systemic steroids. We'll continue to follow
--- NOTE | 2022-11-02 12:41 | P.PN ---
Subjective Progress Note Date: 11/02/22 This is an unfortunate 57-year-old female patient with a past medical history significant for history of ovarian cancer with metastasis she was maintained on oral chemotherapy until recently as well as history of chronic hypoxic respiratory failure apparently related to side effect of the maintenance therapy as well as history of pericardial effusion status post pericardial window. The patient presented to the hospital complaining of shortness of breath started about a week ago. Recently she was diagnosed with chronic hypoxic respiratory failure and she was started on oxygen and continues to follow-up with rigging up man regularly. She was started on steroid and the maintenance chemotherapy was stopped and subsequently she felt better today about a week ago when she started experiencing increasing in the shortness of breath associated with wheezing as well as cough productive of whitish sputum with no fever or chills and no symptoms of chest pain or chest discomfort but she has been experi encing easy in the lower extremities edema lately. No dizziness or lightheadedness and no feeling of heart racing or fluttering and no presyncope or syncope. She presented to the hospital for further evaluation. She underwent a workup including EKG showing sinus mechanism with sinus tachycardia with low-voltage QRS and also she underwent cardiac enzymes came in to be unremarkable and computed tomography scan of the chest showing no evidence of pulmonary embolism but she was found to have small bilateral pleural effusion and small pericardial effusion as well as pulmonary vascular congestions patent and the proBNP is about 800. Currently she is on oxygen to maintain her saturation above 90%. She was on oxygen as an outpatient. She was started on Lasix. An echocardiogram is in process to be done. Currently she is on Lasix 20 mg IV twice a day 11/01 Patient is seen today in follow-up. Echocardiogram is currently pending. Patient continues to have shortness of breath. Heart rate is 103, blood pressure 108/69. The blood work reveals WBC 15.7, hemoglobin 9.5, sodium is 127, creatinine 0.84. 11/02 Patient is seen today in follow-up. Echocardiogram reveals technically difficul t interpretation. Normal LV systolic function. Moderate circumferential pericardial effusion with fibrous strands. Heart rate is 100, blood pressure 127/84. Examination is remarkable or stable vital signs Assessment Acute on chronic hypoxic respiratory failure Pericardial effusion on the computed tomography scan of the chest. History of pericardial window recently. History of ovarian cancer with metastasis Multiple comorbid conditions Hyponatremia Anemia Plan Continue the current medical regimen Cardiology will sign off and follow on an as-needed basis. Please reconsult for any new concerns. Nurse practitioner note has been reviewed, I agree with the documented findings and plan of care. Patient was seen and examined. Objective - Vital Signs Vital signs: Vital Signs Temp 97.5 F L 11/02/22 08:21 Pulse 100 11/02/22 08:44 Resp 22 11/02/22 08:22 BP 107/76 11/02/22 08:21 Pulse Ox 99 11/02/22 08:21 FiO2 Intake & Output 11/01/22 11/02/22 11/02/22 18:59 06:59 18:59 Intake Total 990 540 118 Output Total 500 1200 900 Balance 719 -348 -623 Weight 86.6 kg Intake: Oral 990 540 118 Output: Urine 500 1200 900 Other: Voiding Method Toilet Toilet Toilet Bedside Commode Bedside Commode Bedside Commode # Voids 1 3 2 - Labs CBC & Chem 7: 11/01/22 07:48 11/01/22 07:48 Labs: Abnormal Lab Results - Last 24 Hours (Table) 11/01/22 11/01/22 11/01/22 Range/Units 11:43 16:49 20:16 POC Glucose (mg/dL) 277 H 235 H 244 H (70-110) mg/dL 11/02/22 Range/Units 05:52 POC Glucose (mg/dL) 290 H (70-110) mg/dL Microbiology - Last 24 Hours (Table) 10/30/22 11:30 Blood Culture - Preliminary Blood 10/30/22 11:38 Blood Culture - Preliminary Blood
--- NOTE | 2022-11-02 13:29 | P.PN ---
Subjective Progress Note Date: 11/02/22 Principal diagnosis: metastatic ovarian cancer At today's visit patient is resting comfortably in bedside chair. Reports feeling improved today. She reports breathing has significantly improved. No other reported complaints at this time Objective - Vital Signs Vital signs: Vital Signs Temp 98.0 F 11/02/22 11:52 Pulse 109 H 11/02/22 11:52 Resp 22 11/02/22 11:52 BP 127/84 11/02/22 11:52 Pulse Ox 93 L 11/02/22 11:52 FiO2 Intake & Output 11/01/22 11/02/22 11/02/22 18:59 06:59 18:59 Intake Total 990 540 118 Output Total 500 1200 900 Balance 935 -604 -536 Weight 86.6 kg Intake: Oral 990 540 118 Output: Urine 500 1200 900 Other: Voiding Method Toilet Toilet Toilet Bedside Commode Bedside Commode Bedside Commode # Voids 1 3 2 - Constitutional General appearance: Present: average body habitus, no acute distress - EENT Eyes: Present: anicteric sclerae, EOMI ENT: Present: hearing grossly normal - Respiratory Respiratory: bilateral: wheezing - Cardiovascular Rhythm: regular Heart sounds: normal: S1, S2 Abnormal Heart Sounds: Absent: systolic murmur, diastolic murmur, rub, S3 Gallop, S4 Gallop, click, other - Gastrointestinal General gastrointestinal: Present: soft. Absent: tenderness - Integumentary Integumentary: Absent: cyanotic, rash - Neurologic Neurologic: Present: CNII-XII intact - Musculoskeletal Musculoskeletal: Present: strength equal bilaterally - Psychiatric Psychiatric: Present: A&O x's 3, appropriate affect, intact judgment & insight - Labs CBC & Chem 7: 11/01/22 07:48 11/01/22 07:48 Labs: Abnormal Lab Results - Last 24 Hours (Table) 11/01/22 11/01/22 11/02/22 Range/Units 16:49 20:16 05:52 POC Glucose (mg/dL) 235 H 244 H 290 H (70-110) mg/dL 11/02/22 Range/Units 11:23 POC Glucose (mg/dL) 317 H (70-110) mg/dL Microbiology - Last 24 Hours (Table) 10/30/22 11:30 Blood Culture - Preliminary Blood 10/30/22 11:38 Blood Culture - Preliminary Blood Assessment and Plan (1) Acute bronchospasm Current Visit: Yes Status: Acute Priority: High Code(s): J98.01 - ACUTE BRONCHOSPASM SNOMED Code(s): 02761910994210 (2) Primary malignant neoplasm of ovary with widespread metastatic disease Current Visit: Yes Status: Chronic Priority: Medium Code(s): C56.9 - MALIGNANT NEOPLASM OF UNSPECIFIED OVARY; C80.0 - DISSEMINATED MALIGNANT NEOPLASM, UNSPECIFIED SNOMED Code(s): 105631464 (3) Macrocytic anemia Current Visit: Yes Status: Chronic Priority: Medium Code(s): D53.9 - NUTRITIONAL ANEMIA, UNSPECIFIED SNOMED Code(s): 75785484 Plan: Wheezing, dyspnea -Recurrent after completing prednisone taper from admit 10/07/2022 -CTA chest no PE or concerns for infectious process, she does have sm bilateral pleural effusions and small pericardial effusion. Reviewed Pulm assessment and recommendations -Breathing stable-Significant improvement today, she cont on solumedrol and breathing treatments -Suspicions for pneumonitis 2/2 niraparib treatment. Discontinued 09/10/2022. Would recommend prolonged steroid taper to recover Macrocytic anemia -Hgb near baseline, stable 9.5 -Macrocytosis likely due to Hx of chemotherapy -TSH/free T4, vitamin B12, folic acid, and iron studies pending -transfuse if symptomatic or Hgb <7. Metastatic ovarian adenocarcinoma: -Follows with Dr. Thibodeaux and Dr. Cerda. -Completed 7 cycles of Doxil/carbo 03/06, maintenance Zejula 05/2022-09/10/22 -Pericardial fluid and pericardium biopsy obtained 08/05, were positive for metastatic ovarian carcinoma, PET showed metastatic disease in July. -Dr. Thibodeaux recommended optimizing her pulmonary function prior to proceeding with additional treatment -F/U Dr. Thibodeaux 11/12/2022 for clinical reassessment and decision for systemic treatment at that time. Pt will keep that appt attests: I have seen and examined patient, performed H&P, and developed impr ession and plan of care. Discussed with dictator. Agree with documentation, dictated as a scribe
--- NOTE | 2022-11-02 15:01 | P.PN ---
Subjective Progress Note Date: 11/02/22 This is a 57-year-old female patient of Dr. Aguilar who presented with concerns of increased dyspnea. Patient reports that she was having improvement since previous admission with updraft and prednisone treatment but starts developing increased wheezing and shortness breath increasing over the past few days. patient has extensive medical history including ovarian cancer which was diagnosed 14 years ago and has been maintained on chemo therapy. Additional medical history includes previous episode of pericardial effusion with pericardial window. Chest x-ray showing cardiomegaly with mild pulmonary vascular congestion correlate with BMP for congestive heart failure. COPD changes. Chest CTA completed showing no evidence of pulmonary embolism U small bilateral pleural effusions him a new small pericardial effusion new pulmonary vascular congestion and cardiomegaly correlate with serum BNP. This time patient will be admitted patient's BREATHING treatments, IV Lasix, Solu-Medrol. Pulmonary cardiology and oncology services will be consulted. On 11/01/2022 patient was seen and examined on the telemetry floor she is alert and oriented 3 in no apparent distress she reports improvement in her shortness of breath otherwise she denies any complaints there is no fever or chills no headache or dizziness no chest pain no palpitation no nausea or vomiting no abdominal pain no diarrhea no blood in the stools no burning with urination no frequency or urgency and no hematuria On 11/02/2022 patient was seen and examined on the telemetry floor she is reporting improvement in her shortness of breath, otherwise she denies any complaints there is no fever or chills no headache or dizziness no chest pain no palpitation she has occasional cough no nausea or vomiting no abdominal pain no diarrhea no blood in the stools no burning with urination no frequency or urgency no hematuria. Objective - Vital Signs Vital signs: Vital Signs Temp 98.0 F 11/02/22 11:52 Pulse 109 H 11/02/22 11:52 Resp 22 11/02/22 11:52 BP 127/84 11/02/22 11:52 Pulse Ox 93 L 11/02/22 11:52 FiO2 Intake & Output 11/01/22 11/02/22 11/02/22 18:59 06:59 18:59 Intake Total 990 540 118 Output Total 500 1200 900 Balance 386 -194 -102 Weight 86.6 kg Intake: Oral 990 540 118 Output: Urine 500 1200 900 Other: Voiding Method Toilet Toilet Toilet Bedside Commode Bedside Commode Bedside Commode # Voids 1 3 2 - Exam In general patient is alert and oriented x 3 in no distress HEENT head normocephalic and atraumatic Neck is supple no JVD no goiter no lymphadenopathy no carotid bruit Chest examination is clear to auscultation no crackles no wheezing Cardiac exam reveals regular heart sounds S1 and S2 no gallops no murmurs Abdomen is soft nontender no organomegaly with normal bowel sounds Extremity exam reveals no edema no cyanosis or clubbing Neurological examination reveals no gross focal deficits - Labs CBC & Chem 7: 11/01/22 07:48 11/01/22 07:48 Labs: Abnormal Lab Results - Last 24 Hours (Table) 11/01/22 11/01/22 11/02/22 Range/Units 16:49 20:16 05:52 POC Glucose (mg/dL) 235 H 244 H 290 H (70-110) mg/dL 11/02/22 Range/Units 11:23 POC Glucose (mg/dL) 317 H (70-110) mg/dL Microbiology - Last 24 Hours (Table) 10/30/22 11:30 Blood Culture - Preliminary Blood 10/30/22 11:38 Blood Culture - Preliminary Blood Assessment and Plan Assessment: 1. Acute on chronic hypoxic respiratory failure 2. Pericardial effusion on computed tomography scan of the chest 3. History of pericardial window 4. History of ovarian cancer with metastatic disease 5. Bronchospasms 6. History of oral thrush Pulmonary cardiology service is consulted 2-D echo completed Maintained on IV Lasix, IV steroids and DuoNeb breathing treatmen treatments.
[2022-11-02 16:17] LABS: Glucose,Whole Blood 327 mg/dL (70-110)
[2022-11-02 20:29] LABS: Glucose,Whole Blood 264 mg/dL (70-110)
[2022-11-02] MEDS: ZYRTEC 10MG TABLET PO SCH (20:33)
[2022-11-02] MEDS ORDERED: FLUCONAZOLE 100 MG TAB PO ONE (21:36)
[2022-11-03 05:22] LABS: % Iron Saturation 20.82 (12.00-45.00); Iron 56 UG/DL (50-170); Total Iron Binding Capacity 269 UG/DL (228-460)
[2022-11-03] MEDS: FUROSEMIDE 10 MG/ML 2 ML VIAL IV SCH ×2 (05:36→17:06)
[2022-11-03] MEDS: methylPREDNISolone SOD SUCCI 125 MG/2 ML VIAL IV SCH ×4 (05:37→23:12)
[2022-11-03 06:10] LABS: Glucose,Whole Blood 254 mg/dL (70-110)
[2022-11-03] MEDS: INSULIN ASPART (NovoLOG) 100 UNIT/ML VIAL SQ SCH ×4 (06:29→20:24)
[2022-11-03 07:56] LABS: Anisocytosis Slight; Basophils % (A) 0 %; Eosinophils % (A) 0 %; HCT 33.1 % (34.0-46.0); HGB 10.7 gm/dL (11.4-16.0); Hypochromasia Moderate; Lymphocytes # (A) 0.9 k/uL (1.0-4.8); Lymphocytes % (A) 7 %; MCH 33.1 pg (25.0-35.0); MCHC 32.3 g/dL (31.0-37.0); MCV 102.5 fL (80.0-100.0); Macrocytosis Moderate; Mean Platelet Volume 7.6; Monocytes # (A) 0.4 k/uL (0-1.0); Monocytes % (A) 3 %; Neutrophils # (A) 11.7 k/uL (1.3-7.7); Neutrophils % (A) 89 %; Platelet Count 278 k/uL (150-450); RBC 3.22 m/uL (3.80-5.40); RDW 16.8 % (11.5-15.5); WBC 13.1 k/uL (3.8-10.6)
[2022-11-03] MEDS: IPRATROPIUM-ALBUTEROL 3 ML NEB INHALATION SCH ×4 (08:27→20:09)
[2022-11-03] MEDS: FORMOTEROL FUMARATE 20 MCG/2 ML NEBU INHALATION SCH ×2 (08:27→20:09)
[2022-11-03] MEDS: BUDESONIDE 1 MG/2 ML NEBU INHALATION SCH ×2 (08:28→20:09)
[2022-11-03] MEDS: ASPIRIN 325 MG TAB PO SCH (08:29)
[2022-11-03] MEDS: NYSTATIN 100,000 UNIT/ML SUSP 500,000 UNIT/5 ML CUP PO SCH ×4 (08:29→20:24)
[2022-11-03] MEDS: BENZONATATE 100 MG CAP PO SCH ×3 (08:29→20:24)
[2022-11-03] MEDS: MAGNESIUM OXIDE 400 MG TAB PO SCH (08:29)
[2022-11-03] MEDS: FAMOTIDINE 20 MG TAB PO SCH ×2 (08:29→20:24)
[2022-11-03] MEDS: FLUTICASONE 50MCG/SPRAY NASAL 16GM EA NOSTRIL SCH ×2 (08:30→20:24)
[2022-11-03 08:31] LABS: ALT 22 U/L (4-34); AST 26 U/L (14-36); African American GFR (CKD) >90 (>60 ml/min/1.73 sqM); Alkaline Phosphatase 73 U/L (38-126); Anion Gap 11 mmol/L; Blood Urea Nitrogen 29 mg/dL (7-17); Carbon Dioxide 31 mmol/L (22-30); Chloride 88 mmol/L (98-107); Glucose 252 mg/dL (74-99); Non-African American GFR(CKD) 80 (>60 ml/min/1.73 sqM); Potassium 3.7 mmol/L (3.5-5.1); Sodium 130 mmol/L (137-145); Total Bilirubin 0.8 mg/dL (0.2-1.3)
[2022-11-03 11:25] LABS: Glucose,Whole Blood 228 mg/dL (70-110)
--- NOTE | 2022-11-03 11:30 | P.PN ---
Subjective Progress Note Date: 11/03/22 This is a 57-year-old female patient of Dr. Aguilar who presented with concerns of increased dyspnea. Patient reports that she was having improvement since previous admission with updraft and prednisone treatment but starts developing increased wheezing and shortness breath increasing over the past few days. patient has extensive medical history including ovarian cancer which was diagnosed 14 years ago and has been maintained on chemo therapy. Additional medical history includes previous episode of pericardial effusion with pericardial window. Chest x-ray showing cardiomegaly with mild pulmonary vascular congestion correlate with BMP for congestive heart failure. COPD changes. Chest CTA completed showing no evidence of pulmonary embolism U small bilateral pleural effusions him a new small pericardial effusion new pulmonary vascular congestion and cardiomegaly correlate with serum BNP. This time patient will be admitted patient's BREATHING treatments, IV Lasix, Solu-Medrol. Pulmonary cardiology and oncology services will be consulted. On 11/01/2022 patient was seen and examined on the telemetry floor she is alert and oriented 3 in no apparent distress she reports improvement in her shortness of breath otherwise she denies any complaints there is no fever or chills no headache or dizziness no chest pain no palpitation no nausea or vomiting no abdominal pain no diarrhea no blood in the stools no burning with urination no frequency or urgency and no hematuria On 11/02/2022 patient was seen and examined on the telemetry floor she is reporting improvement in her shortness of breath, otherwise she denies any complaints there is no fever or chills no headache or dizziness no chest pain no palpitation she has occasional cough no nausea or vomiting no abdominal pain no diarrhea no blood in the stools no burning with urination no frequency or urgency no hematuria. On 11/03/2022 patient is alert and oriented 3. Patient continued to show improvement in regards to breathing. Discussed case with pulmonary team patient will continue IV steroids no plans for bronchoscopy at this time. Patient denies chest pain. Patient denies nausea vomiting or diarrhea. Patient denies any urinary frequency Objective - Vital Signs Vital signs: Vital Signs Temp 98 F 11/03/22 08:20 Pulse 100 11/03/22 08:58 Resp 20 11/03/22 08:20 BP 104/62 11/03/22 08:20 Pulse Ox 96 11/03/22 08:20 FiO2 Intake & Output 11/02/22 11/03/22 11/03/22 18:59 06:59 18:59 Intake Total 118 240 236 Output Total 1125 1500 1150 [facility]7332 -5117 -194 Weight 86.5 kg Intake: Oral 118 240 236 Output: Urine 1125 1500 1150 Other: Voiding Method Toilet Toilet Toilet Bedside Commode Bedside Commode # Voids 2 - Exam In general patient is alert and oriented x 3 in no distress HEENT head normocephalic and atraumatic Neck is supple no JVD no goiter no lymphadenopathy no carotid bruit Chest examination is clear to auscultation no crackles no wheezing Cardiac exam reveals regular heart sounds S1 and S2 no gallops no murmurs Abdomen is soft nontender no organomegaly with normal bowel sounds Extremity exam reveals no edema no cyanosis or clubbing Neurological examination reveals no gross focal deficits - Labs CBC & Chem 7: 11/03/22 07:11 11/03/22 07:11 Labs: Abnormal Lab Results - Last 24 Hours (Table) 11/02/22 11/02/22 11/02/22 Range/Units 10:54 16:15 20:27 WBC (3.8-10.6) k/uL RBC (3.80-5.40) m/uL Hgb (11.4-16.0) gm/dL Hct (34.0-46.0) % MCV (80.0-100.0) fL RDW (11.5-15.5) % Neutrophils # (1.3-7.7) k/uL Lymphocytes # (1.0-4.8) k/uL Sodium (137-145) mmol/L Chloride (98-107) mmol/L Carbon Dioxide (22-30) mmol/L BUN (7-17) mg/dL Glucose (74-99) mg/dL POC Glucose (mg/dL) 327 H 264 H (70-110) mg/dL Transferrin 192.0 L (204.0-354.0) mg/dL Ferritin 453.0 H (10.0-291.0) ng/mL 11/03/22 11/03/22 11/03/22 Range/Units 06:03 07:11 07:11 WBC 13.1 H (3.8-10.6) k/uL RBC 3.22 L (3.80-5.40) m/uL Hgb 10.7 L (11.4-16.0) gm/dL Hct 33.1 L (34.0-46.0) % MCV 102.5 H (80.0-100.0) fL RDW 16.8 H (11.5-15.5) % Neutrophils # 11.7 H (1.3-7.7) k/uL Lymphocytes # 0.9 L (1.0-4.8) k/uL Sodium 130 L (137-145) mmol/L Chloride 88 L (98-107) mmol/L Carbon Dioxide 31 H (22-30) mmol/L BUN 29 H (7-17) mg/dL Glucose 252 H (74-99) mg/dL POC Glucose (mg/dL) 254 H (70-110) mg/dL Transferrin (204.0-354.0) mg/dL Ferritin (10.0-291.0) ng/mL 11/03/22 Range/Units 11:23 WBC (3.8-10.6) k/uL RBC (3.80-5.40) m/uL Hgb (11.4-16.0) gm/dL Hct (34.0-46.0) % MCV (80.0-100.0) fL RDW (11.5-15.5) % Neutrophils # (1.3-7.7) k/uL Lymphocytes # (1.0-4.8) k/uL Sodium (137-145) mmol/L Chloride (98-107) mmol/L Carbon Dioxide (22-30) mmol/L BUN (7-17) mg/dL Glucose (74-99) mg/dL POC Glucose (mg/dL) 228 H (70-110) mg/dL Transferrin (204.0-354.0) mg/dL Ferritin (10.0-291.0) ng/mL Microbiology - Last 24 Hours (Table) 10/30/22 11:30 Blood Culture - Preliminary Blood 10/30/22 11:38 Blood Culture - Preliminary Blood Assessment and Plan Assessment: 1. Acute on chronic hypoxic respiratory failure 2. Pericardial effusion on computed tomography scan of the chest 3. History of pericardial window 4. History of ovarian cancer with metastatic disease 5. Bronchospasms 6. History of oral thrush Pulmonary cardiology service is consulted Pulmonary no plans for bronchoscopy at this time. Patient may require one in the future Maintained on IV Lasix, IV steroids and DuoNeb breathing treatmen treatments.
--- NOTE | 2022-11-03 13:19 | P.PN ---
Subjective Progress Note Date: 11/03/22 Principal diagnosis: metastatic ovarian cancer At today's visit patient is resting comfortably in bedside chair. Reports continued improvement in symptoms. She reports breathing has significantly improved. No other reported complaints at this time Objective - Vital Signs Vital signs: Vital Signs Temp 98 F 11/03/22 11:48 Pulse 99 11/03/22 11:48 Resp 20 11/03/22 11:48 BP 103/65 11/03/22 11:48 Pulse Ox 96 11/03/22 11:48 FiO2 Intake & Output 11/02/22 11/03/22 11/03/22 18:59 06:59 18:59 Intake Total 118 240 736 Output Total 1125 1500 1150 Balance -1007 -1260 -414 Weight 86.5 kg Intake: Oral 118 240 736 Output: Urine 1125 1500 1150 Other: Voiding Method Toilet Toilet Toilet Bedside Commode Bedside Commode # Voids 2 - Constitutional General appearance: Present: average body habitus, no acute distress - EENT Eyes: Present: anicteric sclerae, EOMI ENT: Present: hearing grossly normal - Respiratory Respiratory: right: rales (rales in RLL), bilateral: wheezing - Cardiovascular Rhythm: regular Heart sounds: normal: S1, S2 Abnormal Heart Sounds: Absent: systolic murmur, diastolic murmur, rub, S3 Gallop, S4 Gallop, click, other - Integumentary Integumentary: Present: normal - Neurologic Neurologic: Present: CNII-XII intact - Musculoskeletal Musculoskeletal: Present: strength equal bilaterally - Psychiatric Psychiatric: Present: A&O x's 3, appropriate affect, intact judgment & insight - Labs CBC & Chem 7: 11/03/22 07:11 11/03/22 07:11 Labs: Abnormal Lab Results - Last 24 Hours (Table) 11/02/22 11/02/22 11/02/22 Range/Units 10:54 16:15 20:27 WBC (3.8-10.6) k/uL RBC (3.80-5.40) m/uL Hgb (11.4-16.0) gm/dL Hct (34.0-46.0) % MCV (80.0-100.0) fL RDW (11.5-15.5) % Neutrophils # (1.3-7.7) k/uL Lymphocytes # (1.0-4.8) k/uL Sodium (137-145) mmol/L Chloride (98-107) mmol/L Carbon Dioxide (22-30) mmol/L BUN (7-17) mg/dL Glucose (74-99) mg/dL POC Glucose (mg/dL) 327 H 264 H (70-110) mg/dL Transferrin 192.0 L (204.0-354.0) mg/dL Ferritin 453.0 H (10.0-291.0) ng/mL 11/03/22 11/03/22 11/03/22 Range/Units 06:03 07:11 07:11 WBC 13.1 H (3.8-10.6) k/uL RBC 3.22 L (3.80-5.40) m/uL Hgb 10.7 L (11.4-16.0) gm/dL Hct 33.1 L (34.0-46.0) % MCV 102.5 H (80.0-100.0) fL RDW 16.8 H (11.5-15.5) % Neutrophils # 11.7 H (1.3-7.7) k/uL Lymphocytes # 0.9 L (1.0-4.8) k/uL Sodium 130 L (137-145) mmol/L Chloride 88 L (98-107) mmol/L Carbon Dioxide 31 H (22-30) mmol/L BUN 29 H (7-17) mg/dL Glucose 252 H (74-99) mg/dL POC Glucose (mg/dL) 254 H (70-110) mg/dL Transferrin (204.0-354.0) mg/dL Ferritin (10.0-291.0) ng/mL 11/03/22 Range/Units 11:23 WBC (3.8-10.6) k/uL RBC (3.80-5.40) m/uL Hgb (11.4-16.0) gm/dL Hct (34.0-46.0) % MCV (80.0-100.0) fL RDW (11.5-15.5) % Neutrophils # (1.3-7.7) k/uL Lymphocytes # (1.0-4.8) k/uL Sodium (137-145) mmol/L Chloride (98-107) mmol/L Carbon Dioxide (22-30) mmol/L BUN (7-17) mg/dL Glucose (74-99) mg/dL POC Glucose (mg/dL) 228 H (70-110) mg/dL Transferrin (204.0-354.0) mg/dL Ferritin (10.0-291.0) ng/mL Microbiology - Last 24 Hours (Table) 10/30/22 11:30 Blood Culture - Preliminary Blood 10/30/22 11:38 Blood Culture - Preliminary Blood Assessment and Plan (1) Acute bronchospasm Current Visit: Yes Status: Acute Priority: High Code(s): J98.01 - ACUTE BRONCHOSPASM SNOMED Code(s): 15372457195201 (2) Primary malignant neoplasm of ovary with widespread metastatic disease Current Visit: Yes Status: Chronic Priority: Medium Code(s): C56.9 - MALIGNANT NEOPLASM OF UNSPECIFIED OVARY; C80.0 - DISSEMINATED MALIGNANT NEOPLASM, UNSPECIFIED SNOMED Code(s): 426195069 (3) Macrocytic anemia Current Visit: Yes Status: Chronic Priority: Medium Code(s): D53.9 - NUTRITIONAL ANEMIA, UNSPECIFIED SNOMED Code(s): 37942005 Plan: Wheezing, dyspnea -Recurrent after completing prednisone taper from admit 10/07/2022 -CTA chest no PE or concerns for infectious process, she does have sm bilateral pleural effusions and small pericardial effusion. Reviewed Pulm assessment and recommendations. Spoke with pulmonology today, if patient continues to improve, will plan to hold on bronchoscopy -Breathing stable-Significantly improved, cont on solumedrol and breathing treatments. Patient will need to be transitioned to oral prednsione and have slow 6 week taper for treatment of likely underlying pneumonitis 2/2 niraparib treatment, complicated by metastatic disease and possible pneumonia. Macrocytic anemia -Hgb near baseline, stable 10.7 -Macrocytosis likely due to Hx of chemotherapy -No nutritional deficiency anemias noted. TSH WNL -Transfuse if symptomatic or Hgb <7. Metastatic ovarian adenocarcinoma: -Follows with Dr. Thibodeaux and Dr. Cerda. -Completed 7 cycles of Doxil/carbo 03/06, maintenance Zejula 05/2022-09/10/22 -Pericardial fluid and pericardium biopsy obtained 08/05, were positive for metastatic ovarian carcinoma, PET showed metastatic disease in July. -Dr. Thibodeaux recommended optimizing her pulmonary function prior to proceeding with additional treatment -F/U Dr. Thibodeaux 11/12/2022 for clinical reassessment and decision for systemic treatment at that time. Pt will keep that appt attests: I have seen and examined patient, performed H&P, and developed impression and plan of care. Discussed with dictator. Agree with documentation, dictated as a scribe
--- NOTE | 2022-11-03 15:31 | P.PN ---
Subjective Progress Note Date: 11/03/22 57-year-old female with a history of metastatic ovarian carcinoma, who was seen in the emergency department, on October 30, complaining of shortness of breath, difficulty breathing, cough, chest congestion, and occasional phlegm production. She states that when she weaned herself off the prednisone, her respiratory complaints became worse. I saw her in consultation, September of this year. The patient previously was thought to have pneumonitis, secondary to her chemotherapeutic agent. Currently, the patient is on 2 L of nasal oxygen, with saturations in the mid 90s. She does not appear to be particularly short of breath, does not have any conversational dyspnea, or use of accessory muscles. The patient was given breathing treatments, corticosteroids, and antibiotics. The patient's chest x-ray showed cardiomegaly, mild pulmonary vascular congestion. CT angiogram that was performed, was negative for pulmonary embolism, showed small bilateral pleural effusions, as well as some upper abdominal lymphadenopathy, and a right middle lobe pulmonary nodule. White count is 8.1, hemoglobin 10, hematocrit 31.3, with a platelet count of 210,000. D-dimer was elevated at 1.85. Sodium 128, potassium 4.3, chlorides 96, CO2 22, BUN 9, creatinine 0.58. The rest of the comprehensive metabolic profile is essentially normal. On today's evaluation of 11/01/2022, the patient is feeling slightly better c ompared to yesterday. She remains on steroids. The exact cause for her shortness of breath and persistent cough is not clear. The patient is currently having difficulties in laying down flat because of shortness of breath. 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 The patient was originally diagnosed in 2008 has received multiple treatments, most recently on Zejula started in May 2022 after 7 cycles of Doxil/carboplatin in February 2022 with recent imaging in September 2022 revealing evidence of disease progression who presents for a cute dyspnea. She was hospitalized from 10/04/2022 through 10/07/2022 for dyspnea at that time, which was thought to be related to pneumonia. She did discontinue Zejula 3 weeks prior to her admission. On discharge, she was placed on a steroid taper lasting approximately 15 days and did not have any respiratory issues during this time. After completing the steroid taper, she developed increased dyspnea with wheezing. I reviewed the CAT scans of the chest and I I think it'll be worthwhile for this patient to undergo a high-resolution CAT scan of the chest to assess for any parenchymal progression of tumor versus drug- induced pneumonitis and is same time I discussed with her the potential of that having a biopsy. She is receiving IV Solu-Medrol 60 mg every 6 hours for now. The patient's WBC count is at 15.7 with a hemoglobin 9.5. Sodium is at 127. The ends of 20 with a creatinine 0.8. LFTs are within normal limits. On today's evaluation of 11/02/2022, the patient is feeling much better compared to yesterday. Shortness of breath and cough is essentially improving. The patient underwent a HRCT of the chest yesterday and it showed a right upper lobe pulmonary nodule a reflect elevated previously metastatic nodule in addition to somebody some lymphadenopathy not well characterized on this study. The patient had bilateral pleural effusions and evidence of some limited subpleural groundglass pulmonary infiltrates. There is also evidence of bronchial wall thickening and mild bronchiectasis. As such, there is no significant airspace disease. No clear indication of parenchymal lung abnormalities to suggest parenchymal lung invasion with malignancy. No evidence of any active pneumonia at this point in time. The patient remains on IV Solu-Medrol. Blood sugar is elevated at 317. The patient is receiving IV Solu-Medrol and she is receiving 60 mg every 6 hours. She is on insulin by scale coverage. Cough is subsiding. On 11/03/2022, no new complaints and the patient is feeling progressively more improved while being on steroids. Cough and shortness of breath subsiding. The patient is on IV Solu-Medrol 60 mg every 6 hours. The patient is currently on room air oxygen with a pulse ox of 96% the blood work shows a WBC count of 13.4 with a hemoglobin of 10.7 and a platelet count of 278. BUN is at 29 with a creatinine of 0.8 his sodiums of 130. Glucose at 228. The blood cultures are essentially negative. Objective - Vital Signs Vital signs: Vital Signs Temp 98 F 11/03/22 08:20 Pulse 100 11/03/22 08:58 Resp 20 11/03/22 08:20 BP 104/62 11/03/22 08:20 Pulse Ox 96 11/03/22 08:20 FiO2 Intake & Output 11/02/22 11/03/22 11/03/22 18:59 06:59 18:59 Intake Total 118 240 236 Output Total 1125 1500 1150 Balance -1007 -3530 -614 Weight 86.5 kg Intake: Oral 118 240 236 Output: Urine 1125 1500 1150 Other: Voiding Method Toilet Toilet Toilet Bedside Commode Bedside Commode # Voids 2 - Exam No acute distress, oriented 3. Currently on 2 L. No conversational dyspnea or use of accessory muscles. The patient is currently on room air oxygen HEENT examination is grossly unremarkable. Mucous membranes are moist. No oral lesions. Neck supple. Full range of motion. No adenopathy thyromegaly or neck vein distention. Cardiovascular examination reveals regular rhythm rate. S1-S2 normal. No S3 or S4. No discernible murmur noted. Lungs reveal scattered rhonchi. No wheezes or crackles. Breath sounds equal bilaterally. Crackles are appreciated in lung bases bilaterally Abdomen soft bowel sounds are heard. No masses or tenderness. Extremities are intact. No cyanosis or clubbing. Trace lower extremity edema. Skin is without rash or lesion. Neurologic examination is brief but nonfocal. - Labs CBC & Chem 7: 11/03/22 07:11 11/03/22 07:11 Labs: Abnormal Lab Results - Last 24 Hours (Table) 11/02/22 11/02/22 11/02/22 Range/Units 10:54 11:23 16:15 WBC (3.8-10.6) k/uL RBC (3.80-5.40) m/uL Hgb (11.4-16.0) gm/dL Hct (34.0-46.0) % MCV (80.0-100.0) fL RDW (11.5-15.5) % Neutrophils # (1.3-7.7) k/uL Lymphocytes # (1.0-4.8) k/uL Sodium (137-145) mmol/L Chloride (98-107) mmol/L Carbon Dioxide (22-30) mmol/L BUN (7-17) mg/dL Glucose (74-99) mg/dL POC Glucose (mg/dL) 317 H 327 H (70-110) mg/dL Transferrin 192.0 L (204.0-354.0) mg/dL Ferritin 453.0 H (10.0-291.0) ng/mL 11/02/22 11/03/22 11/03/22 Range/Units 20:27 06:03 07:11 WBC 13.1 H (3.8-10.6) k/uL RBC 3.22 L (3.80-5.40) m/uL Hgb 10.7 L (11.4-16.0) gm/dL Hct 33.1 L (34.0-46.0) % MCV 102.5 H (80.0-100.0) fL RDW 16.8 H (11.5-15.5) % Neutrophils # 11.7 H (1.3-7.7) k/uL Lymphocytes # 0.9 L (1.0-4.8) k/uL Sodium (137-145) mmol/L Chloride (98-107) mmol/L Carbon Dioxide (22-30) mmol/L BUN (7-17) mg/dL Glucose (74-99) mg/dL POC Glucose (mg/dL) 264 H 254 H (70-110) mg/dL Transferrin (204.0-354.0) mg/dL Ferritin (10.0-291.0) ng/mL 11/03/22 Range/Units 07:11 WBC (3.8-10.6) k/uL RBC (3.80-5.40) m/uL Hgb (11.4-16.0) gm/dL Hct (34.0-46.0) % MCV (80.0-100.0) fL RDW (11.5-15.5) % Neutrophils # (1.3-7.7) k/uL Lymphocytes # (1.0-4.8) k/uL Sodium 130 L (137-145) mmol/L Chloride 88 L (98-107) mmol/L Carbon Dioxide 31 H (22-30) mmol/L BUN 29 H (7-17) mg/dL Glucose 252 H (74-99) mg/dL POC Glucose (mg/dL) (70-110) mg/dL Transferrin (204.0-354.0) mg/dL Ferritin (10.0-291.0) ng/mL Microbiology - Last 24 Hours (Table) 06/17/23 11:30 Blood Culture - Preliminary Blood 10/30/22 11:38 Blood Culture - Preliminary Blood Assessment and Plan Plan: Acute shortness of breath, likely multifactorial, acute bronchitis with bronchospasm, as well as possible iatrogenic pneumonitis, related to Zejula. I'm also concerned about parenchymal lung involvement with ovarian cancer. The patient has shown limited response to systemic steroids. Infectious causes are felt to be less likely at this point in time. The patient is clinically improving. The patient responded to steroids. CAT scan of the chest shows no major abnormalities and there is some limited Bilateral pleural effusions in the lung base bilaterally. There is bilateral pleural effusion small lung with mediastinal lymphadenopathy and a right upper lobe pulmonary nodule. Acute hypoxic respiratory failure currently on 2 L of oxygen by nasal cannula Metastatic ovarian carcinoma, diagnosed in 2008, with recurrence. The patient has diffuse adenopathy, both in the abdominal cavity and thoracic cavity. Metastatic pulmonary nodule. History of malignant pericardial effusion, status post pericardial window. Plan: Plan Clinically, the patient continues to improve A pro-calcitonin level will be checked. The level was at 0.09 and the level was low Continue steroids with IV Solu-Medrol 60 mg every 6 hours, the patient patient will be tapered to oral prednisone as of tomorrow and this will be a slow long taper steroid course. Continue bronchodilators High-resolution computed tomography scan of the chest showed no evidence of any ILD or any other parenchymal lung abnormalities to suggest parenchymal lung infiltration with tumor May ultimately need a bronchoscopy and transbronchial biopsies to further narrow down the differential diagnosis. A bronchial lavage will be also needed to rule out infections. Based on the progress, the patient is improving and I'm going to hold off the bronchoscopy as long as the patient is showing positive signs of response to systemic steroids. We'll continue to follow Based on the clinical improvement, no further bronchoscopic intervention will be done at this point in time.
[2022-11-03 16:36] LABS: Glucose,Whole Blood 302 mg/dL (70-110)
[2022-11-03 19:52] LABS: Glucose,Whole Blood 331 mg/dL (70-110)
[2022-11-03] MEDS: ZYRTEC 10MG TABLET PO SCH (20:24)
[2022-11-04] MEDS: IPRATROPIUM-ALBUTEROL 3 ML NEB INHALATION PRN (03:09)
[2022-11-04] MEDS: FUROSEMIDE 10 MG/ML 2 ML VIAL IV SCH (05:18)
[2022-11-04] MEDS: methylPREDNISolone SOD SUCCI 125 MG/2 ML VIAL IV SCH (05:18)
[2022-11-04 05:59] LABS: Glucose,Whole Blood 305 mg/dL (70-110)
[2022-11-04] MEDS: INSULIN ASPART (NovoLOG) 100 UNIT/ML VIAL SQ SCH ×4 (06:42→22:09)
[2022-11-04] MEDS: IPRATROPIUM-ALBUTEROL 3 ML NEB INHALATION SCH ×4 (07:46→21:38)
[2022-11-04] MEDS: BUDESONIDE 1 MG/2 ML NEBU INHALATION SCH ×2 (07:46→21:38)
[2022-11-04] MEDS: FORMOTEROL FUMARATE 20 MCG/2 ML NEBU INHALATION SCH ×2 (07:47→21:38)
[2022-11-04] MEDS: DOCUSATE 100 MG CAP PO PRN (09:25)
[2022-11-04] MEDS: BENZONATATE 100 MG CAP PO SCH ×3 (09:25→22:11)
[2022-11-04] MEDS: FAMOTIDINE 20 MG TAB PO SCH ×2 (09:25→22:09)
[2022-11-04] MEDS: NYSTATIN 100,000 UNIT/ML SUSP 500,000 UNIT/5 ML CUP PO SCH ×4 (09:25→22:09)
[2022-11-04] MEDS: FLUTICASONE 50MCG/SPRAY NASAL 16GM EA NOSTRIL SCH ×2 (09:25→22:10)
[2022-11-04] MEDS: ASPIRIN 325 MG TAB PO SCH (09:25)
[2022-11-04] MEDS: MAGNESIUM OXIDE 400 MG TAB PO SCH (09:25)
[2022-11-04 09:49] LABS: AST 25 U/L (14-36); African American GFR (CKD) 84 (>60 ml/min/1.73 sqM); Albumin 3.9 g/dL (3.5-5.0); Alkaline Phosphatase 72 U/L (38-126); Anion Gap 12 mmol/L; Blood Urea Nitrogen 28 mg/dL (7-17); Calcium 9.2 mg/dL (8.4-10.2); Carbon Dioxide 31 mmol/L (22-30); Chloride 88 mmol/L (98-107); Glucose 279 mg/dL (74-99); Non-African American GFR(CKD) 73 (>60 ml/min/1.73 sqM); Potassium 3.3 mmol/L (3.5-5.1); Sodium 131 mmol/L (137-145); Total Bilirubin 0.7 mg/dL (0.2-1.3); Total Protein 6.8 g/dL (6.3-8.2)
[2022-11-04 09:53] LABS: Anisocytosis Slight; Basophils % (A) 0 %; Eosinophils % (A) 0 %; HCT 34.4 % (34.0-46.0); HGB 10.7 gm/dL (11.4-16.0); Hypochromasia Moderate; Lymphocytes # (A) 0.8 k/uL (1.0-4.8); Lymphocytes % (A) 7 %; MCH 31.6 pg (25.0-35.0); MCHC 31.2 g/dL (31.0-37.0); MCV 101.3 fL (80.0-100.0); Macrocytosis Slight; Mean Platelet Volume 7.5; Monocytes # (A) 0.3 k/uL (0-1.0); Monocytes % (A) 2 %; Neutrophils # (A) 10.8 k/uL (1.3-7.7); Neutrophils % (A) 91 %; Platelet Count 272 k/uL (150-450); Poikilocytosis Slight; RDW 16.6 % (11.5-15.5); WBC 11.9 k/uL (3.8-10.6)
[2022-11-04 09:58] LABS: ALT 38 U/L (4-34)
[2022-11-04 11:41] LABS: Glucose,Whole Blood 224 mg/dL (70-110)
[2022-11-04] MEDS ORDERED: Potassium Replacement Protocol 1 EACH MISC MISCELLANE PRN (13:06)
--- NOTE | 2022-11-04 13:55 | P.PN ---
Subjective Progress Note Date: 11/04/22 57-year-old female with a history of metastatic ovarian carcinoma, who was seen in the emergency department, on October 30, complaining of shortness of breath, difficulty breathing, cough, chest congestion, and occasional phlegm production. She states that when she weaned herself off the prednisone, her respiratory complaints became worse. I saw her in consultation, September of this year. The patient previously was thought to have pneumonitis, secondary to her chemotherapeutic agent. Currently, the patient is on 2 L of nasal oxygen, with saturations in the mid 90s. She does not appear to be particularly short of breath, does not have any conversational dyspnea, or use of accessory muscles. The patient was given breathing treatments, corticosteroids, and antibiotics. The patient's chest x-ray showed cardiomegaly, mild pulmonary vascular congestion. CT angiogram that was performed, was negative for pulmonary embolism, showed small bilateral pleural effusions, as well as some upper abdominal lymphadenopathy, and a right middle lobe pulmonary nodule. White count is 8.1, hemoglobin 10, hematocrit 31.3, with a platelet count of 210,000. D-dimer was elevated at 1.85. Sodium 128, potassium 4.3, chlorides 96, CO2 22, BUN 9, creatinine 0.58. The rest of the comprehensive metabolic profile is essentially normal. On today's evaluation of 11/01/2022, the patient is feeling slightly better c ompared to yesterday. She remains on steroids. The exact cause for her shortness of breath and persistent cough is not clear. The patient is currently having difficulties in laying down flat because of shortness of breath. 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 The patient was originally diagnosed in 2008 has received multiple treatments, most recently on Zejula started in May 2022 after 7 cycles of Doxil/carboplatin in February 2022 with recent imaging in September 2022 revealing evidence of disease progression who presents for a cute dyspnea. She was hospitalized from 10/04/2022 through 10/07/2022 for dyspnea at that time, which was thought to be related to pneumonia. She did discontinue Zejula 3 weeks prior to her admission. On discharge, she was placed on a steroid taper lasting approximately 15 days and did not have any respiratory issues during this time. After completing the steroid taper, she developed increased dyspnea with wheezing. I reviewed the CAT scans of the chest and I I think it'll be worthwhile for this patient to undergo a high-resolution CAT scan of the chest to assess for any parenchymal progression of tumor versus drug- induced pneumonitis and is same time I discussed with her the potential of that having a biopsy. She is receiving IV Solu-Medrol 60 mg every 6 hours for now. The patient's WBC count is at 15.7 with a hemoglobin 9.5. Sodium is at 127. The ends of 20 with a creatinine 0.8. LFTs are within normal limits. On today's evaluation of 11/02/2022, the patient is feeling much better compared to yesterday. Shortness of breath and cough is essentially improving. The patient underwent a HRCT of the chest yesterday and it showed a right upper lobe pulmonary nodule a reflect elevated previously metastatic nodule in addition to somebody some lymphadenopathy not well characterized on this study. The patient had bilateral pleural effusions and evidence of some limited subpleural groundglass pulmonary infiltrates. There is also evidence of bronchial wall thickening and mild bronchiectasis. As such, there is no significant airspace disease. No clear indication of parenchymal lung abnormalities to suggest parenchymal lung invasion with malignancy. No evidence of any active pneumonia at this point in time. The patient remains on IV Solu-Medrol. Blood sugar is elevated at 317. The patient is receiving IV Solu-Medrol and she is receiving 60 mg every 6 hours. She is on insulin by scale coverage. Cough is subsiding. On 11/03/2022, no new complaints and the patient is feeling progressively more improved while being on steroids. Cough and shortness of breath subsiding. The patient is on IV Solu-Medrol 60 mg every 6 hours. The patient is currently on room air oxygen with a pulse ox of 96% the blood work shows a WBC count of 13.4 with a hemoglobin of 10.7 and a platelet count of 278. BUN is at 29 with a creatinine of 0.8 his sodiums of 130. Glucose at 228. The blood cultures are essentially negative. 11/02/2022, seeing the patient for a follow-up. Overall condition is progressively improving. Less short of breath as bronchospastic and coughing has subsided significantly. The patient remains on IV Solu-Medrol. I'm going to go ahead and switch the patient to oral prednisone thousand 80 mg by mouth daily. She'll be also taken off the IV Lasix and switch to oral Lasix. No other new complaints otherwise for now. The WBC count is at 10 point with a hemoglobin of 10.7 and platelet count of 272. BUN is 28 with a creatinine of 0.8 and a sodium level is at 131. Blood sugars at 224. No other issues otherwise for now. The patient self reports that she is improving. No fever. No chills. No other complaints. Objective - Vital Signs Vital signs: Vital Signs Temp 98 F 11/04/22 08:00 Pulse 98 11/04/22 08:27 Resp 18 11/04/22 08:00 BP 118/65 11/04/22 08:00 Pulse Ox 95 11/04/22 08:00 FiO2 Intake & Output 11/03/22 11/04/22 11/04/22 18:59 06:59 18:59 Intake Total 736 240 120 Output Total 1950 400 Balance -1214 -160 120 Weight 85.4 kg Intake: Oral 736 240 120 Output: Urine 1950 400 Other: Voiding Method Toilet Toilet - Exam No acute distress, oriented 3. Currently on 2 L. No conversational dyspnea or use of accessory muscles. The patient is currently on room air oxygen HEENT examination is grossly unremarkable. Mucous membranes are moist. No oral lesions. Neck supple. Full range of motion. No adenopathy thyromegaly or neck vein distention. Cardiovascular examination reveals regular rhythm rate. S1-S2 normal. No S3 or S4. No discernible murmur noted. Lungs reveal scattered rhonchi. No wheezes or crackles. Breath sounds equal bilaterally. Crackles are appreciated in lung bases bilaterally Abdomen soft bowel sounds are heard. No masses or tenderness. Extremities are intact. No cyanosis or clubbing. Trace lower extremity edema. Skin is without rash or lesion. Neurologic examination is brief but nonfocal. - Labs CBC & Chem 7: 11/04/22 08:18 11/04/22 08:18 Labs: Abnormal Lab Results - Last 24 Hours (Table) 11/02/22 11/03/22 11/03/22 Range/Units 10:54 11:23 16:34 WBC (3.8-10.6) k/uL RBC (3.80-5.40) m/uL Hgb (11.4-16.0) gm/dL MCV (80.0-100.0) fL RDW (11.5-15.5) % Neutrophils # (1.3-7.7) k/uL Lymphocytes # (1.0-4.8) k/uL Sodium (137-145) mmol/L Potassium (3.5-5.1) mmol/L Chloride (98-107) mmol/L Carbon Dioxide (22-30) mmol/L BUN (7-17) mg/dL Glucose (74-99) mg/dL POC Glucose (mg/dL) 228 H 302 H (70-110) mg/dL ALT (4-34) U/L Methylmalonic Acid 0.70 H (<0.40) umol/L 11/03/22 11/04/22 11/04/22 Range/Units 19:50 05:52 08:18 WBC 11.9 H (3.8-10.6) k/uL RBC 3.40 L (3.80-5.40) m/uL Hgb 10.7 L (11.4-16.0) gm/dL MCV 101.3 H (80.0-100.0) fL RDW 16.6 H (11.5-15.5) % Neutrophils # 10.8 H (1.3-7.7) k/uL Lymphocytes # 0.8 L (1.0-4.8) k/uL Sodium (137-145) mmol/L Potassium (3.5-5.1) mmol/L Chloride (98-107) mmol/L Carbon Dioxide (22-30) mmol/L BUN (7-17) mg/dL Glucose (74-99) mg/dL POC Glucose (mg/dL) 331 H 305 H (70-110) mg/dL ALT (4-34) U/L Methylmalonic Acid (<0.40) umol/L 11/04/22 Range/Units 08:18 WBC (3.8-10.6) k/uL RBC (3.80-5.40) m/uL Hgb (11.4-16.0) gm/dL MCV (80.0-100.0) fL RDW (11.5-15.5) % Neutrophils # (1.3-7.7) k/uL Lymphocytes # (1.0-4.8) k/uL Sodium 131 L (137-145) mmol/L Potassium 3.3 L (3.5-5.1) mmol/L Chloride 88 L (98-107) mmol/L Carbon Dioxide 31 H (22-30) mmol/L BUN 28 H (7-17) mg/dL Glucose 279 H (74-99) mg/dL POC Glucose (mg/dL) (70-110) mg/dL ALT 38 H (4-34) U/L Methylmalonic Acid (<0.40) umol/L Assessment and Plan Plan: Acute shortness of breath, likely multifactorial, acute bronchitis with bronchospasm, as well as possible iatrogenic pneumonitis, related to Zejula. I'm also concerned about parenchymal lung involvement with ovarian cancer. The patient has shown limited response to systemic steroids. Infectious causes are felt to be less likely at this point in time. The patient is clinically improving. The patient responded to steroids. CAT scan of the chest shows no major abnormalities and there is some limited Bilateral pleural effusions in the lung base bilaterally. There is bilateral pleural effusion small lung with mediastinal lymphadenopathy and a right upper lobe pulmonary nodule. Acute hypoxic respiratory failure currently on 2 L of oxygen by nasal cannula Metastatic ovarian carcinoma, diagnosed in 2008, with recurrence. The patient has diffuse adenopathy, both in the abdominal cavity and thoracic cavity. Metastatic pulmonary nodule. History of malignant pericardial effusion, status post pericardial window. Plan: Plan Clinically, the patient continues to improve Cough and shortness of breath subsiding Discontinue IV Solu-Medrol and start the patient 80 mg of prednisone *The patient Lasix 40 mg by mouth daily and discontinue the IV Lasix Continue bronchodilators High-resolution computed tomography scan of the chest showed no evidence of any ILD or any other parenchymal lung abnormalities to suggest parenchymal lung infiltration with tumor May ultimately need a bronchoscopy and transbronchial biopsies to further narrow down the differential diagnosis. A bronchial lavage will be also needed to rule out infections. Based on the progress, the patient is improving and I'm going to hold off the bronchoscopy as long as the patient is showing positive signs of response to systemic steroids. We'll continue to follow Based on the clinical improvement, no further bronchoscopic intervention will be done at this point in time.
--- NOTE | 2022-11-04 16:04 | P.PN ---
Subjective Progress Note Date: 11/04/22 This is a 57-year-old female patient of Dr. Aguilar who presented with concerns of increased dyspnea. Patient reports that she was having improvement since previous admission with updraft and prednisone treatment but starts developing increased wheezing and shortness breath increasing over the past few days. patient has extensive medical history including ovarian cancer which was diagnosed 14 years ago and has been maintained on chemo therapy. Additional medical history includes previous episode of pericardial effusion with pericardial window. Chest x-ray showing cardiomegaly with mild pulmonary vascular congestion correlate with BMP for congestive heart failure. COPD changes. Chest CTA completed showing no evidence of pulmonary embolism U small bilateral pleural effusions him a new small pericardial effusion new pulmonary vascular congestion and cardiomegaly correlate with serum BNP. This time patient will be admitted patient's BREATHING treatments, IV Lasix, Solu-Medrol. Pulmonary cardiology and oncology services will be consulted. On 11/01/2022 patient was seen and examined on the telemetry floor she is alert and oriented 3 in no apparent distress she reports improvement in her shortness of breath otherwise she denies any complaints there is no fever or chills no headache or dizziness no chest pain no palpitation no nausea or vomiting no abdominal pain no diarrhea no blood in the stools no burning with urination no frequency or urgency and no hematuria On 11/02/2022 patient was seen and examined on the telemetry floor she is reporting improvement in her shortness of breath, otherwise she denies any complaints there is no fever or chills no headache or dizziness no chest pain no palpitation she has occasional cough no nausea or vomiting no abdominal pain no diarrhea no blood in the stools no burning with urination no frequency or urgency no hematuria. On 11/03/2022 patient is alert and oriented 3. Patient continued to show improvement in regards to breathing. Discussed case with pulmonary team patient will continue IV steroids no plans for bronchoscopy at this time. Patient denies chest pain. Patient denies nausea vomiting or diarrhea. Patient denies any urinary frequency. On 11/04/2022 patient was seen and examined on the medical floor, she is alert and oriented 3 in no apparent distress there is no fever or chills no headache or dizziness no chest pain no shortness of breath no cough no nausea or vomiting no abdominal pain no diarrhea and no urinary symptoms. At this time patient is being switched to oral prednisone and oral Lasix, no plans per pulmonary for bronchoscopy this time, patient has not been yet cleared for discharge, will continue to follow closely. Objective - Vital Signs Vital signs: Vital Signs Temp 98.4 F 11/04/22 12:00 Pulse 96 11/04/22 12:07 Resp 18 11/04/22 12:00 BP 117/69 11/04/22 12:00 Pulse Ox 90 L 11/04/22 12:00 FiO2 Intake & Output 11/03/22 11/04/22 11/04/22 18:59 06:59 18:59 Intake Total 736 240 620 Output Total 1950 400 500 Balance -1214 -160 120 Weight 85.4 kg 85.4 kg Intake: Oral 736 240 620 Output: Urine 1950 400 500 Other: Voiding Method Toilet Toilet - Exam In general patient is alert and oriented x 3 in no distress HEENT head normocephalic and atraumatic Neck is supple no JVD no goiter no lymphadenopathy no carotid bruit Chest examination is clear to auscultation no crackles no wheezing Cardiac exam reveals regular heart sounds S1 and S2 no gallops no murmurs Abdomen is soft nontender no organomegaly with normal bowel sounds Extremity exam reveals no edema no cyanosis or clubbing Neurological examination reveals no gross focal deficits - Labs CBC & Chem 7: 11/04/22 08:18 11/04/22 08:18 Labs: Abnormal Lab Results - Last 24 Hours (Table) 11/02/22 11/03/22 11/03/22 Range/Units 10:54 16:34 19:50 WBC (3.8-10.6) k/uL RBC (3.80-5.40) m/uL Hgb (11.4-16.0) gm/dL MCV (80.0-100.0) fL RDW (11.5-15.5) % Neutrophils # (1.3-7.7) k/uL Lymphocytes # (1.0-4.8) k/uL Sodium (137-145) mmol/L Potassium (3.5-5.1) mmol/L Chloride (98-107) mmol/L Carbon Dioxide (22-30) mmol/L BUN (7-17) mg/dL Glucose (74-99) mg/dL POC Glucose (mg/dL) 302 H 331 H (70-110) mg/dL ALT (4-34) U/L Methylmalonic Acid 0.70 H (<0.40) umol/L 11/04/22 11/04/22 11/04/22 Range/Units 05:52 08:18 08:18 WBC 11.9 H (3.8-10.6) k/uL RBC 3.40 L (3.80-5.40) m/uL Hgb 10.7 L (11.4-16.0) gm/dL MCV 101.3 H (80.0-100.0) fL RDW 16.6 H (11.5-15.5) % Neutrophils # 10.8 H (1.3-7.7) k/uL Lymphocytes # 0.8 L (1.0-4.8) k/uL Sodium 131 L (137-145) mmol/L Potassium 3.3 L (3.5-5.1) mmol/L Chloride 88 L (98-107) mmol/L Carbon Dioxide 31 H (22-30) mmol/L BUN 28 H (7-17) mg/dL Glucose 279 H (74-99) mg/dL POC Glucose (mg/dL) 305 H (70-110) mg/dL ALT 38 H (4-34) U/L Methylmalonic Acid (<0.40) umol/L 11/04/22 Range/Units 11:38 WBC (3.8-10.6) k/uL RBC (3.80-5.40) m/uL Hgb (11.4-16.0) gm/dL MCV (80.0-100.0) fL RDW (11.5-15.5) % Neutrophils # (1.3-7.7) k/uL Lymphocytes # (1.0-4.8) k/uL Sodium (137-145) mmol/L Potassium (3.5-5.1) mmol/L Chloride (98-107) mmol/L Carbon Dioxide (22-30) mmol/L BUN (7-17) mg/dL Glucose (74-99) mg/dL POC Glucose (mg/dL) 224 H (70-110) mg/dL ALT (4-34) U/L Methylmalonic Acid (<0.40) umol/L Assessment and Plan Assessment: 1. Acute on chronic hypoxic respiratory failure 2. Pericardial effusion on computed tomography scan of the chest 3. History of pericardial window 4. History of ovarian cancer with metastatic disease 5. Bronchospasms 6. History of oral thrush Pulmonary cardiology service is consulted Pulmonary no plans for bronchoscopy at this time. Patient may require one in the future Maintained on IV Lasix, IV steroids and DuoNeb breathing treatmen treatments.
[2022-11-04 16:42] LABS: Glucose,Whole Blood 287 mg/dL (70-110)
[2022-11-04] MEDS: POTASSIUM CHLORIDE ER 20 MEQ TAB.ER PO SCH ×2 (16:56→17:56)
[2022-11-04 20:10] LABS: Glucose,Whole Blood 185 mg/dL (70-110)
[2022-11-04] MEDS: ZYRTEC 10MG TABLET PO SCH (22:10)
[2022-11-05 06:20] LABS: Glucose,Whole Blood 180 mg/dL (70-110)
[2022-11-05] MEDS: INSULIN ASPART (NovoLOG) 100 UNIT/ML VIAL SQ SCH ×4 (07:06→20:18)
[2022-11-05] MEDS: BUDESONIDE 1 MG/2 ML NEBU INHALATION SCH ×2 (07:45→21:46)
[2022-11-05] MEDS: FORMOTEROL FUMARATE 20 MCG/2 ML NEBU INHALATION SCH ×2 (07:45→21:46)
[2022-11-05] MEDS: IPRATROPIUM-ALBUTEROL 3 ML NEB INHALATION SCH ×4 (07:45→21:46)
[2022-11-05] MEDS: BENZONATATE 100 MG CAP PO SCH ×3 (09:15→20:18)
[2022-11-05] MEDS: predniSONE 20 MG TAB PO SCH (09:15)
[2022-11-05] MEDS: ASPIRIN 325 MG TAB PO SCH (09:15)
[2022-11-05] MEDS: FUROSEMIDE 40 MG TAB PO SCH (09:15)
[2022-11-05] MEDS: FAMOTIDINE 20 MG TAB PO SCH ×2 (09:15→20:18)
[2022-11-05 09:16] LABS: Anisocytosis Slight; Basophils % (A) 0 %; Eosinophils # (A) 0.1 k/uL (0-0.7); Eosinophils % (A) 1 %; HCT 34.3 % (34.0-46.0); HGB 10.7 gm/dL (11.4-16.0); Hypochromasia Slight; Lymphocytes # (A) 2.4 k/uL (1.0-4.8); Lymphocytes % (A) 15 %; MCHC 31.2 g/dL (31.0-37.0); MCV 99.2 fL (80.0-100.0); Macrocytosis Slight; Mean Platelet Volume 7.5; Monocytes # (A) 0.6 k/uL (0-1.0); Monocytes % (A) 4 %; Neutrophils # (A) 13.2 k/uL (1.3-7.7); Neutrophils % (A) 80 %; Platelet Count 282 k/uL (150-450); Poikilocytosis Slight; RBC 3.46 m/uL (3.80-5.40); RDW 16.6 % (11.5-15.5); WBC 16.5 k/uL (3.8-10.6)
[2022-11-05] MEDS: NYSTATIN 100,000 UNIT/ML SUSP 500,000 UNIT/5 ML CUP PO SCH ×4 (09:16→20:19)
[2022-11-05] MEDS: MAGNESIUM OXIDE 400 MG TAB PO SCH (09:16)
[2022-11-05] MEDS: FLUTICASONE 50MCG/SPRAY NASAL 16GM EA NOSTRIL SCH ×2 (09:16→20:19)
[2022-11-05] MEDS: DOCUSATE 100 MG CAP PO PRN (09:23)
[2022-11-05 09:38] LABS: ALT 26 U/L (4-34); AST 31 U/L (14-36); African American GFR (CKD) 81 (>60 ml/min/1.73 sqM); Albumin 3.7 g/dL (3.5-5.0); Alkaline Phosphatase 78 U/L (38-126); Anion Gap 8 mmol/L; Blood Urea Nitrogen 26 mg/dL (7-17); Calcium 9.3 mg/dL (8.4-10.2); Carbon Dioxide 33 mmol/L (22-30); Chloride 88 mmol/L (98-107); Glucose 166 mg/dL (74-99); Non-African American GFR(CKD) 70 (>60 ml/min/1.73 sqM); Potassium 3.6 mmol/L (3.5-5.1); Sodium 129 mmol/L (137-145); Total Bilirubin 0.7 mg/dL (0.2-1.3); Total Protein 6.6 g/dL (6.3-8.2)
--- NOTE | 2022-11-05 10:12 | P.PN ---
Subjective Progress Note Date: 11/05/22 This is a 57-year-old female patient of Dr. Aguilar who presented with concerns of increased dyspnea. Patient reports that she was having improvement since previous admission with updraft and prednisone treatment but starts developing increased wheezing and shortness breath increasing over the past few days. patient has extensive medical history including ovarian cancer which was diagnosed 14 years ago and has been maintained on chemo therapy. Additional medical history includes previous episode of pericardial effusion with pericardial window. Chest x-ray showing cardiomegaly with mild pulmonary vascular congestion correlate with BMP for congestive heart failure. COPD changes. Chest CTA completed showing no evidence of pulmonary embolism U small bilateral pleural effusions him a new small pericardial effusion new pulmonary vascular congestion and cardiomegaly correlate with serum BNP. This time patient will be admitted patient's BREATHING treatments, IV Lasix, Solu-Medrol. Pulmonary cardiology and oncology services will be consulted. On 11/01/2022 patient was seen and examined on the telemetry floor she is alert and oriented 3 in no apparent distress she reports improvement in her shortness of breath otherwise she denies any complaints there is no fever or chills no headache or dizziness no chest pain no palpitation no nausea or vomiting no abdominal pain no diarrhea no blood in the stools no burning with urination no frequency or urgency and no hematuria On 11/02/2022 patient was seen and examined on the telemetry floor she is reporting improvement in her shortness of breath, otherwise she denies any complaints there is no fever or chills no headache or dizziness no chest pain no palpitation she has occasional cough no nausea or vomiting no abdominal pain no diarrhea no blood in the stools no burning with urination no frequency or urgency no hematuria. On 11/03/2022 patient is alert and oriented 3. Patient continued to show improvement in regards to breathing. Discussed case with pulmonary team patient will continue IV steroids no plans for bronchoscopy at this time. Patient denies chest pain. Patient denies nausea vomiting or diarrhea. Patient denies any urinary frequency. On 11/04/2022 patient was seen and examined on the medical floor, she is alert and oriented 3 in no apparent distress there is no fever or chills no headache or dizziness no chest pain no shortness of breath no cough no nausea or vomiting no abdominal pain no diarrhea and no urinary symptoms. At this time patient is being switched to oral prednisone and oral Lasix, no plans per pulmonary for bronchoscopy this time, patient has not been yet cleared for discharge, will continue to follow closely. 11/05/2022 patient is alert and oriented 3. Patient having increasing shortness of breath and crackles today. Patient has been transitioned to by mouth prednisone will discuss case with pulmonary services for possible bronchoscopy. Patient remains on Lasix. Her vital signs as 7.6, heart rate 98, respiratory rate 20, blood pressure 126/64 95% on 2 L Objective - Vital Signs Vital signs: Vital Signs Temp 97.6 F 11/05/22 09:15 Pulse 98 11/05/22 09:15 Resp 20 11/05/22 09:15 BP 126/64 11/05/22 09:15 Pulse Ox 95 11/05/22 09:15 FiO2 Intake & Output 11/04/22 11/05/22 11/05/22 18:59 06:59 18:59 Intake Total 1320 Output Total 500 Balance 820 Weight 85.4 kg Intake: Oral 1320 Output: Urine 500 Other: Voiding Method Toilet # Voids 1 - Exam In general patient is alert and oriented x 3 in no distress HEENT head normocephalic and atraumatic Neck is supple no JVD no goiter no lymphadenopathy no carotid bruit Chest examination is clear to auscultation no crackles no wheezing Cardiac exam reveals regular heart sounds S1 and S2 no gallops no murmurs Abdomen is soft nontender no organomegaly with normal bowel sounds Extremity exam reveals no edema no cyanosis or clubbing Neurological examination reveals no gross focal deficits - Labs CBC & Chem 7: 11/05/22 08:44 11/05/22 08:44 Labs: Abnormal Lab Results - Last 24 Hours (Table) 11/04/22 11/04/22 11/04/22 Range/Units 11:38 16:34 20:09 WBC (3.8-10.6) k/uL RBC (3.80-5.40) m/uL Hgb (11.4-16.0) gm/dL RDW (11.5-15.5) % Neutrophils # (1.3-7.7) k/uL Sodium (137-145) mmol/L Chloride (98-107) mmol/L Carbon Dioxide (22-30) mmol/L BUN (7-17) mg/dL Glucose (74-99) mg/dL POC Glucose (mg/dL) 224 H 287 H 185 H (70-110) mg/dL 11/05/22 11/05/22 11/05/22 Range/Units 06:18 08:44 08:44 WBC 16.5 H (3.8-10.6) k/uL RBC 3.46 L (3.80-5.40) m/uL Hgb 10.7 L (11.4-16.0) gm/dL RDW 16.6 H (11.5-15.5) % Neutrophils # 13.2 H (1.3-7.7) k/uL Sodium 129 L (137-145) mmol/L Chloride 88 L (98-107) mmol/L Carbon Dioxide 33 H (22-30) mmol/L BUN 26 H (7-17) mg/dL Glucose 166 H (74-99) mg/dL POC Glucose (mg/dL) 180 H (70-110) mg/dL Microbiology - Last 24 Hours (Table) 10/30/22 11:30 Blood Culture - Final Blood 10/30/22 11:38 Blood Culture - Final Blood Assessment and Plan Assessment: 1. Acute on chronic hypoxic respiratory failure 2. Pericardial effusion on computed tomography scan of the chest 3. History of pericardial window 4. History of ovarian cancer with metastatic disease 5. Bronchospasms 6. History of oral thrush Pulmonary cardiology service is consulted Pulmonary no plans for bronchoscopy at this time. Patient may require one in the future Maintained on IV Lasix, IV steroids and DuoNeb breathing treatmen treatments.
[2022-11-05 11:57] LABS: Glucose,Whole Blood 292 mg/dL (70-110)
--- NOTE | 2022-11-05 13:48 | P.PN ---
Subjective Progress Note Date: 11/05/22 57-year-old female with a history of metastatic ovarian carcinoma, who was seen in the emergency department, on October 30, complaining of shortness of breath, difficulty breathing, cough, chest congestion, and occasional phlegm production. She states that when she weaned herself off the prednisone, her respiratory complaints became worse. I saw her in consultation, September of this year. The patient previously was thought to have pneumonitis, secondary to her chemotherapeutic agent. Currently, the patient is on 2 L of nasal oxygen, with saturations in the mid 90s. She does not appear to be particularly short of breath, does not have any conversational dyspnea, or use of accessory muscles. The patient was given breathing treatments, corticosteroids, and antibiotics. The patient's chest x-ray showed cardiomegaly, mild pulmonary vascular congestion. CT angiogram that was performed, was negative for pulmonary embolism, showed small bilateral pleural effusions, as well as some upper abdominal lymphadenopathy, and a right middle lobe pulmonary nodule. White count is 8.1, hemoglobin 10, hematocrit 31.3, with a platelet count of 210,000. D-dimer was elevated at 1.85. Sodium 128, potassium 4.3, chlorides 96, CO2 22, BUN 9, creatinine 0.58. The rest of the comprehensive metabolic profile is essentially normal. On today's evaluation of 11/01/2022, the patient is feeling slightly better c ompared to yesterday. She remains on steroids. The exact cause for her shortness of breath and persistent cough is not clear. The patient is currently having difficulties in laying down flat because of shortness of breath. 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 The patient was originally diagnosed in 2008 has received multiple treatments, most recently on Zejula started in May 2022 after 7 cycles of Doxil/carboplatin in February 2022 with recent imaging in September 2022 revealing evidence of disease progression who presents for a cute dyspnea. She was hospitalized from 10/04/2022 through 10/07/2022 for dyspnea at that time, which was thought to be related to pneumonia. She did discontinue Zejula 3 weeks prior to her admission. On discharge, she was placed on a steroid taper lasting approximately 15 days and did not have any respiratory issues during this time. After completing the steroid taper, she developed increased dyspnea with wheezing. I reviewed the CAT scans of the chest and I I think it'll be worthwhile for this patient to undergo a high-resolution CAT scan of the chest to assess for any parenchymal progression of tumor versus drug- induced pneumonitis and is same time I discussed with her the potential of that having a biopsy. She is receiving IV Solu-Medrol 60 mg every 6 hours for now. The patient's WBC count is at 15.7 with a hemoglobin 9.5. Sodium is at 127. The ends of 20 with a creatinine 0.8. LFTs are within normal limits. On today's evaluation of 11/02/2022, the patient is feeling much better compared to yesterday. Shortness of breath and cough is essentially improving. The patient underwent a HRCT of the chest yesterday and it showed a right upper lobe pulmonary nodule a reflect elevated previously metastatic nodule in addition to somebody some lymphadenopathy not well characterized on this study. The patient had bilateral pleural effusions and evidence of some limited subpleural groundglass pulmonary infiltrates. There is also evidence of bronchial wall thickening and mild bronchiectasis. As such, there is no significant airspace disease. No clear indication of parenchymal lung abnormalities to suggest parenchymal lung invasion with malignancy. No evidence of any active pneumonia at this point in time. The patient remains on IV Solu-Medrol. Blood sugar is elevated at 317. The patient is receiving IV Solu-Medrol and she is receiving 60 mg every 6 hours. She is on insulin by scale coverage. Cough is subsiding. On 11/03/2022, no new complaints and the patient is feeling progressively more improved while being on steroids. Cough and shortness of breath subsiding. The patient is on IV Solu-Medrol 60 mg every 6 hours. The patient is currently on room air oxygen with a pulse ox of 96% the blood work shows a WBC count of 13.4 with a hemoglobin of 10.7 and a platelet count of 278. BUN is at 29 with a creatinine of 0.8 his sodiums of 130. Glucose at 228. The blood cultures are essentially negative. 11/02/2022, seeing the patient for a follow-up. Overall condition is progressively improving. Less short of breath as bronchospastic and coughing has subsided significantly. The patient remains on IV Solu-Medrol. I'm going to go ahead and switch the patient to oral prednisone thousand 80 mg by mouth daily. She'll be also taken off the IV Lasix and switch to oral Lasix. No other new complaints otherwise for now. The WBC count is at 10 point with a hemoglobin of 10.7 and platelet count of 272. BUN is 28 with a creatinine of 0.8 and a sodium level is at 131. Blood sugars at 224. No other issues otherwise for now. The patient self reports that she is improving. No fever. No chills. No other complaints. On today's evaluation of 11/05/2022, patient is short of breath and physical remains on 2 L of oxygen by nasal cannula. She is quite uncomfortable. She remains on oral prednisone 80 mg by mouth daily. She is also on Lasix 40 mg by mouth daily. There is no interval worsening in oxygenation. Clinically, the patient is feeling worse. Chest x-ray findings of essentially stable. There is some lower lobe increased interstitial markings bilaterally. Some limited changes also in the upper lobes. WBC count 16, hemoglobin is at 10.7 and a platelet count is at 282. BUN is 26 with a creatinine of 0.9 and his sodium level is at 129. Objective - Vital Signs Vital signs: Vital Signs Temp 97.6 F 11/05/22 09:15 Pulse 98 11/05/22 09:15 Resp 20 11/05/22 09:15 BP 126/64 11/05/22 09:15 Pulse Ox 95 11/05/22 09:15 FiO2 Intake & Output 11/04/22 11/05/22 11/05/22 18:59 06:59 18:59 Intake Total 1320 Output Total 500 Balance 820 Weight 85.4 kg Intake: Oral 1320 Output: Urine 500 Other: Voiding Method Toilet # Voids 1 - Exam No acute distress, oriented 3. Currently on 2 L. No conversational dyspnea or use of accessory muscles. The patient is currently on room air oxygen HEENT examination is grossly unremarkable. Mucous membranes are moist. No oral lesions. Neck supple. Full range of motion. No adenopathy thyromegaly or neck vein distention. Cardiovascular examination reveals regular rhythm rate. S1-S2 normal. No S3 or S4. No discernible murmur noted. Lungs reveal scattered rhonchi. No wheezes or crackles. Breath sounds equal bilaterally. Crackles are appreciated in lung bases bilaterally Abdomen soft bowel sounds are heard. No masses or tenderness. Extremities are intact. No cyanosis or clubbing. Trace lower extremity edema. Skin is without rash or lesion. Neurologic examination is brief but nonfocal. - Labs CBC & Chem 7: 11/05/22 08:44 11/05/22 08:44 Labs: Abnormal Lab Results - Last 24 Hours (Table) 11/04/22 11/04/22 11/04/22 Range/Units 11:38 16:34 20:09 WBC (3.8-10.6) k/uL RBC (3.80-5.40) m/uL Hgb (11.4-16.0) gm/dL RDW (11.5-15.5) % Neutrophils # (1.3-7.7) k/uL Sodium (137-145) mmol/L Chloride (98-107) mmol/L Carbon Dioxide (22-30) mmol/L BUN (7-17) mg/dL Glucose (74-99) mg/dL POC Glucose (mg/dL) 224 H 287 H 185 H (70-110) mg/dL 11/05/22 11/05/22 11/05/22 Range/Units 06:18 08:44 08:44 WBC 16.5 H (3.8-10.6) k/uL RBC 3.46 L (3.80-5.40) m/uL Hgb 10.7 L (11.4-16.0) gm/dL RDW 16.6 H (11.5-15.5) % Neutrophils # 13.2 H (1.3-7.7) k/uL Sodium 129 L (137-145) mmol/L Chloride 88 L (98-107) mmol/L Carbon Dioxide 33 H (22-30) mmol/L BUN 26 H (7-17) mg/dL Glucose 166 H (74-99) mg/dL POC Glucose (mg/dL) 180 H (70-110) mg/dL Microbiology - Last 24 Hours (Table) 10/30/22 11:30 Blood Culture - Final Blood 10/30/22 11:38 Blood Culture - Final Blood Assessment and Plan Plan: Acute shortness of breath, likely multifactorial, acute bronchitis with bronchospasm, as well as possible iatrogenic pneumonitis, related to Zejula. I'm also concerned about parenchymal lung involvement with ovarian cancer. The patient has shown limited response to systemic steroids. Infectious causes are felt to be less likely at this point in time. The patient is clinically improving. The patient responded to steroids. CAT scan of the chest shows no major abnormalities and there is some limited Bilateral pleural effusions in the lung base bilaterally. There is bilateral pleural effusion small lung with mediastinal lymphadenopathy and a right upper lobe pulmonary nodule. After showing some limited improvement on high-dose steroids, the patient's symptoms are still active and she is struggling with dyspnea and cough without any interval worsening in oxygenation or chest x-ray findings. Acute hypoxic respiratory failure currently on 2 L of oxygen by nasal cannula Metastatic ovarian carcinoma, diagnosed in 2008, with recurrence. The patient has diffuse adenopathy, both in the abdominal cavity and thoracic cavity. Metastatic pulmonary nodule. History of malignant pericardial effusion, status post pericardial window. Plan: Plan Unfortunately, the patient decompensated and she is still having difficulties in breathing. I suspect progression of her malignancy into her lungs and interstitial changes noted are probably related to malignancy. Discussed the findings with the patient We'll consult thoracic surgery for a possible wedge biopsy of the lung for final diagnosis Continue bronchodilators Continue cough medication We'll continue to follow After some initial improvement, the patient is back to active symptoms of shortness of breath and cough. We'll discuss the case with a thoracic surgeon and consider thoracoscopic wedge biopsy over bronchoscopy.
--- NOTE | 2022-11-05 14:14 | P.GSCN ---
History of Present Illness Consult date: 11/05/22 Reason for Consult: ILD Requesting physician: Sergio Farfan History of present illness: This is a 57-year-old female patient who follows outpatient with Dr. Da Silva for primary care, Dr. Thibodeaux for oncology as well as Dr. Hansen for pulmonology. She has a history of ovarian cancer initially diagnosed in 2008 and again in 2013, 2017, 2019, as well as 2021 she's been treated with chemotherapy as well as complete hysterectomy and BSO. She has had a chronic cough since 2020 felt to be from her maintenance chemotherapy and this was stopped recently. She has been on and off steroids chronically for the last couple of years, one started and on higher dose she tends to do a bit better but by the tender tapered off she feels worse again, namely dry cough but also shortness of breath. In July 2022 she was unable moderate air cardial effusion and underwent pericardial window by Dr. Kaur. 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 She recovered and was discharged from the hospital 07/28/2022. She was again admitted in September for pneumonia, treated with antibiotics and steroids and discharged home 10/07/2022. Unfortunately she came back to [facility] emergency room 10/30/2022 with complaints of increased shortness of breath with some wheezing. Chest x-ray Sr. with cardiomegaly and mild pulmonary vascular congestion. Chest CTA demonstrated no pulmonary embolism, small bilateral pleural effusions, small pericardial effusion, pulmonary vascular congestion and cardiomegaly. KASSY was completed demonstrating normal LV systolic function, moderate circumferential pericardial effusion. Lab work revealed WBC 8.1, hemoglobin 10, sodium 128, creatinine 0.58, magnesium 1.4, negative troponins, BNP 443. She was admitted for evaluation and treatment with consultation placed to pulmonology and oncology. She was again placed on high- dose IV steroids and was starting to feel better, in fact she stated yesterday was the best she has felt long time. Unfortunately as her steroids were changed to oral and decreased in dose this morning she was again feeling very short of breath, requiring oxygen, with dry cough. Dr. Farfan considered bronchoscopy with transbronchial biopsy for a more definitive diagnosis, however he was concerned that this may not yield a diagnosis and consultation was placed to Dr. Kaur from cardiothoracic surgery for possible surgical biopsy. Review of Systems Review of systems was completed and was negative except as noted - Cardiovascular Reports as per HPI, Reports decreased exercise tolerance, Reports dyspnea on exertion, Reports shortness of breath - Respiratory Reports as per HPI, Reports cough Past Medical History Past Medical History: Cancer Additional Past Medical History / Comment(s): Hx ovarian cancer reoccurence ovarian cancer August 2021, recent CT that showed inflammation pressi ng on trachea, 90 days tapering steroid dose. Pericardial effusion History of Any Multi-Drug Resistant Organisms: None Reported Past Surgical History: Bowel Resection, Cholecystectomy, Hernia Repair, Hysterectomy Additional Past Surgical History / Comment(s): Pericardial window July 2022 Past Anesthesia/Blood Transfusion Reactions: No Reported Reaction Past Psychological History: No Psychological Hx Reported Smoking Status: Never smoker Past Alcohol Use History: None Reported Past Drug Use History: None Reported - Past Family History Father History Unknown: Yes Family Medical History: Hypertension, Myocardial Infarction (OR) Mother Family Medical History: Diabetes Mellitus, Hypertension Medications and Allergies Home Medications Medication Instructions Recorded Confirmed Type Astragalus Root 2 cap PO Q3H 10/04/22 10/30/22 History Cetirizine HCl [Zyrtec] 10 mg PO HS 10/04/22 10/30/22 History Doterra Copaiba 2 cap PO HS 10/04/22 10/30/22 History Doterra On Guard 2 cap PO DAILY 10/04/22 10/30/22 History Famotidine 20 mg PO BID 10/04/22 10/30/22 History Fluticasone Nasal [place] [Flonase 1 spr EA NOSTRIL BID 10/04/22 10/30/22 History Nasal [place]] Magnesium Taurate 1 cap PO HS 10/04/22 10/30/22 History Formoterol Fumarate [Perforomist] 20 mcg INHALATION RT-BID ml 10/07/22 10/30/22 Rx Ipratropium-Albuterol Nebulize 3 ml INHALATION RT-QID each 10/07/22 10/30/22 Rx [Duoneb 0.5 mg-3 mg/3 ml Soln] Benzonatate [Tessalon Perle] 200 mg PO TID 10/30/22 10/30/22 History Budesonide [Pulmicort] 1 mg INHALATION RT-BID 10/30/22 10/30/22 History Docusate [Colace] 100 mg PO DAILY PRN 10/30/22 10/30/22 History predniSONE 10 mg PO DAILY 10/30/22 10/30/22 History Allergies Allergy/AdvReac Type Severity Reaction Status Date / Time carboplatin Allergy Anaphylaxis Verified 10/30/22 17:28 hydromorphone [From Dilaudid] AdvReac falls Verified 10/30/22 17:28 asleep hard to arouse Surgical - Exam Vital Signs Temp Pulse Resp BP Pulse Ox 97 F L 113 H 24 104/64 94 L 10/30/22 10:57 10/30/22 10:57 10/30/22 10:57 10/30/22 10:57 10/30/22 10:57 CONSTITUTIONAL: Awake and alert, appears comfortable, cooperative, well- developed, well-nourished, no pain, no acute distress EYES: Pupils equal, round, reactive to light, normal ocular movement ENT: Moist mucous membranes without oral lesions present NECK: No masses, no bruits, trachea midline RESPIRATORY: Lungs sounds clear but diminished bilaterally except faint expiratory wheeze on the right. Respirations even, nonlabored. Currently on 2 L nasal cannula with oxygen saturation 95%. Strong nonproductive cough CARDIOVASCULAR: S1, S2 present. Regular rate and rhythm, sinus rhythm on telemetry. Palpable peripheral pulses bilaterally. No edema present. No calf pain or tenderness noted GASTROINTESTINAL: Abdomen soft, nontender, nondistended without masses or organomegaly noted. There is no rebound or guarding present. Active bowel sounds present 4 quadrants. GENITOURINARY: Deferred INTEGUMENTARY: Skin is warm and dry NEUROLOGIC: Cranial nerves II through XII intact, normal coordination, no obvious motor or sensory deficits, speech is normal MUSKULOSKELETAL: Able to move all extremities, strength equal bilaterally, normal posture PSYCHIATRIC: Alert and oriented to person place and time, appropriate affect, intact judgment and insight Results - Labs 11/05/22 08:44 11/05/22 08:44 Abnormal Lab Results - Last 24 Hours (Table) 11/04/22 11/04/22 11/05/22 Range/Units 16:34 20:09 06:18 WBC (3.8-10.6) k/uL RBC (3.80-5.40) m/uL Hgb (11.4-16.0) gm/dL RDW (11.5-15.5) % Neutrophils # (1.3-7.7) k/uL Sodium (137-145) mmol/L Chloride (98-107) mmol/L Carbon Dioxide (22-30) mmol/L BUN (7-17) mg/dL Glucose (74-99) mg/dL POC Glucose (mg/dL) 287 H 185 H 180 H (70-110) mg/dL 11/05/22 11/05/22 11/05/22 Range/Units 08:44 08:44 11:55 WBC 16.5 H (3.8-10.6) k/uL RBC 3.46 L (3.80-5.40) m/uL Hgb 10.7 L (11.4-16.0) gm/dL RDW 16.6 H (11.5-15.5) % Neutrophils # 13.2 H (1.3-7.7) k/uL Sodium 129 L (137-145) mmol/L Chloride 88 L (98-107) mmol/L Carbon Dioxide 33 H (22-30) mmol/L BUN 26 H (7-17) mg/dL Glucose 166 H (74-99) mg/dL POC Glucose (mg/dL) 292 H (70-110) mg/dL Microbiology - Last 24 Hours (Table) 10/30/22 11:30 Blood Culture - Final Blood 10/30/22 11:38 Blood Culture - Final Blood Diabetes panel 11/05/22 Range/Units 08:44 Sodium 129 L (137-145) mmol/L Potassium 3.6 (3.5-5.1) mmol/L Chloride 88 L (98-107) mmol/L Carbon Dioxide 33 H (22-30) mmol/L BUN 26 H (7-17) mg/dL Creatinine 0.92 (0.52-1.04) mg/dL Glucose 166 H (74-99) mg/dL Calcium 9.3 (8.4-10.2) mg/dL AST 31 (14-36) U/L ALT 26 (4-34) U/L Alkaline Phosphatase 78 (38-126) U/L Total Protein 6.6 (6.3-8.2) g/dL Albumin 3.7 (3.5-5.0) g/dL Calcium panel 11/05/22 Range/Units 08:44 Calcium 9.3 (8.4-10.2) mg/dL Albumin 3.7 (3.5-5.0) g/dL Pituitary panel 11/05/22 Range/Units 08:44 Sodium 129 L (137-145) mmol/L Potassium 3.6 (3.5-5.1) mmol/L Chloride 88 L (98-107) mmol/L Carbon Dioxide 33 H (22-30) mmol/L BUN 26 H (7-17) mg/dL Creatinine 0.92 (0.52-1.04) mg/dL Glucose 166 H (74-99) mg/dL Calcium 9.3 (8.4-10.2) mg/dL Adrenal panel 11/05/22 Range/Units 08:44 Sodium 129 L (137-145) mmol/L Potassium 3.6 (3.5-5.1) mmol/L Chloride 88 L (98-107) mmol/L Carbon Dioxide 33 H (22-30) mmol/L BUN 26 H (7-17) mg/dL Creatinine 0.92 (0.52-1.04) mg/dL Glucose 166 H (74-99) mg/dL Calcium 9.3 (8.4-10.2) mg/dL Total Bilirubin 0.7 (0.2-1.3) mg/dL AST 31 (14-36) U/L ALT 26 (4-34) U/L Alkaline Phosphatase 78 (38-126) U/L Total Protein 6.6 (6.3-8.2) g/dL Albumin 3.7 (3.5-5.0) g/dL - Imaging Chest x-ray: report reviewed, image reviewed CT scan - chest: report reviewed, image reviewed Assessment and Plan Assessment: Chronic cough Shortness of breath Metastatic ovarian cancer initially diagnosed in 2008 and again in 2013, 2017, 2019, as well as 2021 she's been treated with chemotherapy as well as complete hysterectomy and BSO History of pericardial effusion status post pericardial window in July 2022 Recent history of pneumonia in September 2022 Chronic steroid use Plan: The patient was seen and examined standing up and walking in her room. Chart/diagnostics reviewed. The patient reports that she continues to have this chronic cough and shortness of breath which does respond to high dose steroids. She is frustrated, knows she can't stay on high-dose steroids indefinitely, and would like answers. Case will be discussed with Dr. Kaur. Continue current management per pulmonology, oncology. Increase activity as tolerated. Wean O2 as tolerated. Medical management of other comorbidities per internal medicine. More recommendations to follow. I have personally seen and examined the patient, performed the documentation and the assessment and plan as written. Number of minutes spent on the visit: 30. JILLIAN TaylorC
--- NOTE | 2022-11-05 15:32 | XR ---
EXAMINATION TYPE: XR chest 1V DATE OF EXAM: 11/05/2022 COMPARISON: 10/30/2022 HISTORY: 57-year-old female shortness of breath, dyspnea TECHNIQUE: Single frontal view of the chest is obtained. FINDINGS: Low lung volumes with crowded vascular markings. Slight increased patchy densities at the peripheral lung bases. Some asymmetric elevation right hemidiaphragm. Some increased opacity medial r ight upper lobe. IMPRESSION: There may be some early developing infiltrates medial right upper lobe and at the bilateral periphera l lung bases. Follow-up recommended.
[2022-11-05 17:10] LABS: Glucose,Whole Blood 351 mg/dL (70-110)
[2022-11-05 20:11] LABS: Glucose,Whole Blood 231 mg/dL (70-110)
[2022-11-05] MEDS: ZYRTEC 10MG TABLET PO SCH (20:21)
[2022-11-05] MEDS ORDERED: POTASSIUM CHLORIDE ER 20 MEQ TAB.ER PO SCH (21:00)
[2022-11-06] MEDS: IPRATROPIUM-ALBUTEROL 3 ML NEB INHALATION SCH ×6 (00:42→21:29)
[2022-11-06 06:07] LABS: Glucose,Whole Blood 171 mg/dL (70-110)
[2022-11-06] MEDS: INSULIN ASPART (NovoLOG) 100 UNIT/ML VIAL SQ SCH ×4 (06:12→21:49)
[2022-11-06] MEDS: BUDESONIDE 1 MG/2 ML NEBU INHALATION SCH ×2 (07:41→21:29)
[2022-11-06] MEDS: FORMOTEROL FUMARATE 20 MCG/2 ML NEBU INHALATION SCH ×2 (07:41→21:29)
[2022-11-06] MEDS: BENZONATATE 100 MG CAP PO SCH ×3 (08:21→21:49)
[2022-11-06] MEDS: predniSONE 20 MG TAB PO SCH (08:22)
[2022-11-06] MEDS: FAMOTIDINE 20 MG TAB PO SCH ×2 (08:22→21:49)
[2022-11-06] MEDS: FUROSEMIDE 40 MG TAB PO SCH (08:22)
[2022-11-06] MEDS: NYSTATIN 100,000 UNIT/ML SUSP 500,000 UNIT/5 ML CUP PO SCH ×4 (08:22→21:49)
[2022-11-06] MEDS: FLUTICASONE 50MCG/SPRAY NASAL 16GM EA NOSTRIL SCH ×2 (08:22→21:50)
[2022-11-06] MEDS: ASPIRIN 325 MG TAB PO SCH (08:22)
[2022-11-06] MEDS: MAGNESIUM OXIDE 400 MG TAB PO SCH (08:22)
[2022-11-06 08:31] LABS: Anisocytosis Slight; Basophils % (A) 0 %; Eosinophils % (A) 0 %; HCT 33.6 % (34.0-46.0); HGB 10.8 gm/dL (11.4-16.0); Hypochromasia Slight; Lymphocytes % (A) 14 %; MCH 32.4 pg (25.0-35.0); MCHC 32.2 g/dL (31.0-37.0); MCV 100.7 fL (80.0-100.0); Macrocytosis Slight; Mean Platelet Volume 7.6; Monocytes # (A) 0.6 k/uL (0-1.0); Monocytes % (A) 4 %; Neutrophils # (A) 11.1 k/uL (1.3-7.7); Neutrophils % (A) 81 %; Platelet Count 231 k/uL (150-450); RBC 3.34 m/uL (3.80-5.40); RDW 16.5 % (11.5-15.5); WBC 13.8 k/uL (3.8-10.6)
[2022-11-06 08:39] LABS: African American GFR (CKD) 77 (>60 ml/min/1.73 sqM); Anion Gap 5 mmol/L; Blood Urea Nitrogen 22 mg/dL (7-17); Calcium 8.4 mg/dL (8.4-10.2); Carbon Dioxide 37 mmol/L (22-30); Chloride 85 mmol/L (98-107); Glucose 165 mg/dL (74-99); Magnesium 1.9 mg/dL (1.6-2.3); Non-African American GFR(CKD) 66 (>60 ml/min/1.73 sqM); Potassium 3.4 mmol/L (3.5-5.1); Sodium 127 mmol/L (137-145)
[2022-11-06] MEDS ORDERED: Potassium Replacement Protocol 1 EACH MISC MISCELLANE PRN (08:41)
--- NOTE | 2022-11-06 08:48 | P.PN ---
Subjective Progress Note Date: 11/05/22 Principal diagnosis: metastatic ovarian cancer At today's visit patient is resting comfortably in bed. Reports increasing SOB last night and this morning. Pt was placed on 2L oxygen with some improvement in symptoms. Pt transitioned to oral prednisone today. No other reported complaints at this time Objective - Vital Signs Vital signs: Vital Signs Temp 98 F 11/05/22 12:15 Pulse 98 11/05/22 17:35 Resp 18 11/05/22 17:35 BP 118/61 11/05/22 17:35 Pulse Ox 96 11/05/22 17:35 FiO2 Intake & Output 11/05/22 11/05/22 11/06/22 06:59 18:59 06:59 Intake Total 1320 40 Balance 1320 40 Intake: Oral 1320 40 Other: Voiding Method Toilet Toilet # Voids 1 3 # Bowel Movements 2 - Constitutional General appearance: Present: average body habitus, no acute distress - EENT Eyes: Present: anicteric sclerae, EOMI ENT: Present: hearing grossly normal - Respiratory Details: breathing even and unlabored - Cardiovascular Details: skin warm and dry - Integumentary Integumentary: Absent: cyanotic, rash - Neurologic Neurologic: Present: CNII-XII intact - Musculoskeletal Musculoskeletal: Present: strength equal bilaterally - Psychiatric Psychiatric: Present: A&O x's 3, appropriate affect, intact judgment & insight - Labs CBC & Chem 7: 11/06/22 07:46 11/05/22 08:44 Labs: Abnormal Lab Results - Last 24 Hours (Table) 11/05/22 11/05/22 11/05/22 Range/Units 06:18 08:44 08:44 WBC 16.5 H (3.8-10.6) k/uL RBC 3.46 L (3.80-5.40) m/uL Hgb 10.7 L (11.4-16.0) gm/dL RDW 16.6 H (11.5-15.5) % Neutrophils # 13.2 H (1.3-7.7) k/uL Sodium 129 L (137-145) mmol/L Chloride 88 L (98-107) mmol/L Carbon Dioxide 33 H (22-30) mmol/L BUN 26 H (7-17) mg/dL Glucose 166 H (74-99) mg/dL POC Glucose (mg/dL) 180 H (70-110) mg/dL 11/05/22 11/05/22 11/05/22 Range/Units 11:55 17:07 20:09 WBC (3.8-10.6) k/uL RBC (3.80-5.40) m/uL Hgb (11.4-16.0) gm/dL RDW (11.5-15.5) % Neutrophils # (1.3-7.7) k/uL Sodium (137-145) mmol/L Chloride (98-107) mmol/L Carbon Dioxide (22-30) mmol/L BUN (7-17) mg/dL Glucose (74-99) mg/dL POC Glucose (mg/dL) 292 H 351 H 231 H (70-110) mg/dL Microbiology - Last 24 Hours (Table) 10/30/22 11:30 Blood Culture - Final Blood 10/30/22 11:38 Blood Culture - Final Blood - Imaging and Cardiology Chest x-ray: report reviewed Assessment and Plan (1) Acute bronchospasm Current Visit: Yes Status: Acute Priority: High Code(s): J98.01 - ACUTE BRONCHOSPASM SNOMED Code(s): 47844031025559 (2) Primary malignant neoplasm of ovary with widespread metastatic disease Current Visit: Yes Status: Chronic Priority: Medium Code(s): C56.9 - MALIGNANT NEOPLASM OF UNSPECIFIED OVARY; C80.0 - DISSEMINATED MALIGNANT NEOPLASM, UNSPECIFIED SNOMED Code(s): 882564111 (3) Macrocytic anemia Current Visit: Yes Status: Chronic Priority: Medium Code(s): D53.9 - NUT RITIONAL ANEMIA, UNSPECIFIED SNOMED Code(s): 59797842 Plan: Wheezing, dyspnea -Recurrent after completing prednisone taper from admit 10/07/2022 -CTA chest no PE or concerns for infectious process, she does have sm bilateral pleural effusions and small pericardial effusion. Reviewed Pulm assessment and recommendations. Due to worsening of breathing, pulmonology is speaking with cardiothoracic in regards to possible lung biopsy vs bronchoscopy -Repeat chest xray showed potential early developing infiltrates medial right upper lobe and at the bilateral peripheral lung bases. -Transitioned to prednisone. Will plan on 6 week slow taper for treatment of likely underlying pneumonitis 2/2 niraparib treatment, complicated by metastatic disease and possible pneumonia. Macrocytic anemia -Hgb near baseline, stable 10.7 -Macrocytosis likely due to Hx of chemotherapy -No nutritional deficiency anemias noted. TSH WNL -Transfuse if symptomatic or Hgb <7. Metastatic ovarian adenocarcinoma: -Follows with Dr. Thibodeaux and Dr. Cerda. -Completed 7 cycles of Doxil/carbo 03/06, maintenance Zejula 05/2022-09/10/22 -Pericardial fluid and pericardium biopsy obtained 08/05, were positive for metastatic ovarian carcinoma, PET showed metastatic disease in July. -Dr. Thibodeaux recommended optimizing her pulmonary function prior to proceeding wi th additional treatment -F/U Dr. Thibodeaux 11/12/2022 for clinical reassessment and decision for systemic treatment at that time. Pt will keep that appt
[2022-11-06] MEDS: POTASSIUM CHLORIDE ER 20 MEQ TAB.ER PO SCH ×2 (09:19→10:22)
--- NOTE | 2022-11-06 11:03 | P.PN ---
Subjective Progress Note Date: 11/06/22 This is a 57-year-old female patient of Dr. Aguilar who presented with concerns of increased dyspnea. Patient reports that she was having improvement since previous admission with updraft and prednisone treatment but starts developing increased wheezing and shortness breath increasing over the past few days. patient has extensive medical history including ovarian cancer which was diagnosed 14 years ago and has been maintained on chemo therapy. Additional medical history includes previous episode of pericardial effusion with pericardial window. Chest x-ray showing cardiomegaly with mild pulmonary vascular congestion correlate with BMP for congestive heart failure. COPD changes. Chest CTA completed showing no evidence of pulmonary embolism U small bilateral pleural effusions him a new small pericardial effusion new pulmonary vascular congestion and cardiomegaly correlate with serum BNP. This time patient will be admitted patient's BREATHING treatments, IV Lasix, Solu-Medrol. Pulmonary cardiology and oncology services will be consulted. On 11/01/2022 patient was seen and examined on the telemetry floor she is alert and oriented 3 in no apparent distress she reports improvement in her shortness of breath otherwise she denies any complaints there is no fever or chills no headache or dizziness no chest pain no palpitation no nausea or vomiting no abdominal pain no diarrhea no blood in the stools no burning with urination no frequency or urgency and no hematuria On 11/02/2022 patient was seen and examined on the telemetry floor she is reporting improvement in her shortness of breath, otherwise she denies any complaints there is no fever or chills no headache or dizziness no chest pain no palpitation she has occasional cough no nausea or vomiting no abdominal pain no diarrhea no blood in the stools no burning with urination no frequency or urgency no hematuria. On 11/03/2022 patient is alert and oriented 3. Patient continued to show improvement in regards to breathing. Discussed case with pulmonary team patient will continue IV steroids no plans for bronchoscopy at this time. Patient denies chest pain. Patient denies nausea vomiting or diarrhea. Patient denies any urinary frequency. On 11/04/2022 patient was seen and examined on the medical floor, she is alert and oriented 3 in no apparent distress there is no fever or chills no headache or dizziness no chest pain no shortness of breath no cough no nausea or vomiting no abdominal pain no diarrhea and no urinary symptoms. At this time patient is being switched to oral prednisone and oral Lasix, no plans per pulmonary for bronchoscopy this time, patient has not been yet cleared for discharge, will continue to follow closely. 11/05/2022 patient is alert and oriented 3. Patient having increasing shortness of breath and crackles today. Patient has been transitioned to by mouth prednisone will discuss case with pulmonary services for possible bronchoscopy. Patient remains on Lasix. Her vital signs as 7.6, heart rate 98, respiratory rate 20, blood pressure 126/64 95% on 2 L On 11/06/2022 patient was seen and examined on the telemetry floor she is alert and oriented 3 in no apparent distress, she is reporting some improvement in her shortness of breath since yesterday she is still having occasional cough there is no fever or chills no headache or dizziness no chest pain no nausea or vomiting no abdominal pain no diarrhea no blood in the stools no burning with urination no frequency or urgency and no hematuria. Plan per pulmonary is to continue with current management at this time and to proceed with bronchoscopy on Tuesday. Objective - Vital Signs Vital signs: Vital Signs Temp 98.2 F 11/06/22 08:16 Pulse 105 H 11/06/22 09:33 Resp 19 11/06/22 09:33 BP 108/71 11/06/22 08:16 Pulse Ox 96 11/06/22 08:16 FiO2 Intake & Output 11/05/22 11/06/22 11/06/22 18:59 06:59 18:59 Intake Total 1320 580 Balance 1320 580 Intake: Oral 1320 580 Other: Voiding Method Toilet Toilet Toilet # Voids 3 # Bowel Movements 2 - Exam In general patient is alert and oriented x 3 in no distress HEENT head normocephalic and atraumatic Neck is supple no JVD no goiter no lymphadenopathy no carotid bruit Chest examination is clear to auscultation no crackles no wheezing Cardiac exam reveals regular heart sounds S1 and S2 no gallops no murmurs Abdomen is soft nontender no organomegaly with normal bowel sounds Extremity exam reveals no edema no cyanosis or clubbing Neurological examination reveals no gross focal deficits - Labs CBC & Chem 7: 11/06/22 07:46 11/06/22 07:46 Labs: Abnormal Lab Results - Last 24 Hours (Table) 11/05/22 11/05/22 11/05/22 Range/Units 11:55 17:07 20:09 WBC (3.8-10.6) k/uL RBC (3.80-5.40) m/uL Hgb (11.4-16.0) gm/dL Hct (34.0-46.0) % MCV (80.0-100.0) fL RDW (11.5-15.5) % Neutrophils # (1.3-7.7) k/uL Sodium (137-145) mmol/L Potassium (3.5-5.1) mmol/L Chloride (98-107) mmol/L Carbon Dioxide (22-30) mmol/L BUN (7-17) mg/dL Glucose (74-99) mg/dL POC Glucose (mg/dL) 292 H 351 H 231 H (70-110) mg/dL 11/06/22 11/06/22 11/06/22 Range/Units 06:02 07:46 07:46 WBC 13.8 H (3.8-10.6) k/uL RBC 3.34 L (3.80-5.40) m/uL Hgb 10.8 L (11.4-16.0) gm/dL Hct 33.6 L (34.0-46.0) % MCV 100.7 H (80.0-100.0) fL RDW 16.5 H (11.5-15.5) % Neutrophils # 11.1 H (1.3-7.7) k/uL Sodium 127 L (137-145) mmol/L Potassium 3.4 L (3.5-5.1) mmol/L Chloride 85 L (98-107) mmol/L Carbon Dioxide 37 H (22-30) mmol/L BUN 22 H (7-17) mg/dL Glucose 165 H (74-99) mg/dL POC Glucose (mg/dL) 171 H (70-110) mg/dL Assessment and Plan Assessment: 1. Acute on chronic hypoxic respiratory failure 2. Pericardial effusion on computed tomography scan of the chest 3. History of pericardial window 4. History of ovarian cancer with metastatic disease 5. Bronchospasms 6. History of oral thrush Pulmonary cardiology service is consulted Pulmonary no plans for bronchoscopy at this time. Patient may require one in the future Maintained on IV Lasix, IV steroids and DuoNeb breathing treatmen treatments.
[2022-11-06 11:20] LABS: Glucose,Whole Blood 255 mg/dL (70-110)
--- NOTE | 2022-11-06 13:12 | P.PN ---
Subjective Progress Note Date: 11/06/22 57-year-old female with a history of metastatic ovarian carcinoma, who was seen in the emergency department, on October 30, complaining of shortness of breath, difficulty breathing, cough, chest congestion, and occasional phlegm production. She states that when she weaned herself off the prednisone, her respiratory complaints became worse. I saw her in consultation, September of this year. The patient previously was thought to have pneumonitis, secondary to her chemotherapeutic agent. Currently, the patient is on 2 L of nasal oxygen, with saturations in the mid 90s. She does not appear to be particularly short of breath, does not have any conversational dyspnea, or use of accessory muscles. The patient was given breathing treatments, corticosteroids, and antibiotics. The patient's chest x-ray showed cardiomegaly, mild pulmonary vascular congestion. CT angiogram that was performed, was negative for pulmonary embolism, showed small bilateral pleural effusions, as well as some upper abdominal lymphadenopathy, and a right middle lobe pulmonary nodule. White count is 8.1, hemoglobin 10, hematocrit 31.3, with a platelet count of 210,000. D-dimer was elevated at 1.85. Sodium 128, potassium 4.3, chlorides 96, CO2 22, BUN 9, creatinine 0.58. The rest of the comprehensive metabolic profile is essentially normal. On today's evaluation of 11/01/2022, the patient is feeling slightly better c ompared to yesterday. She remains on steroids. The exact cause for her shortness of breath and persistent cough is not clear. The patient is currently having difficulties in laying down flat because of shortness of breath. 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 The patient was originally diagnosed in 2008 has received multiple treatments, most recently on Zejula started in May 2022 after 7 cycles of Doxil/carboplatin in February 2022 with recent imaging in September 2022 revealing evidence of disease progression who presents for a cute dyspnea. She was hospitalized from 10/04/2022 through 10/07/2022 for dyspnea at that time, which was thought to be related to pneumonia. She did discontinue Zejula 3 weeks prior to her admission. On discharge, she was placed on a steroid taper lasting approximately 15 days and did not have any respiratory issues during this time. After completing the steroid taper, she developed increased dyspnea with wheezing. I reviewed the CAT scans of the chest and I I think it'll be worthwhile for this patient to undergo a high-resolution CAT scan of the chest to assess for any parenchymal progression of tumor versus drug- induced pneumonitis and is same time I discussed with her the potential of that having a biopsy. She is receiving IV Solu-Medrol 60 mg every 6 hours for now. The patient's WBC count is at 15.7 with a hemoglobin 9.5. Sodium is at 127. The ends of 20 with a creatinine 0.8. LFTs are within normal limits. On today's evaluation of 11/02/2022, the patient is feeling much better compared to yesterday. Shortness of breath and cough is essentially improving. The patient underwent a HRCT of the chest yesterday and it showed a right upper lobe pulmonary nodule a reflect elevated previously metastatic nodule in addition to somebody some lymphadenopathy not well characterized on this study. The patient had bilateral pleural effusions and evidence of some limited subpleural groundglass pulmonary infiltrates. There is also evidence of bronchial wall thickening and mild bronchiectasis. As such, there is no significant airspace disease. No clear indication of parenchymal lung abnormalities to suggest parenchymal lung invasion with malignancy. No evidence of any active pneumonia at this point in time. The patient remains on IV Solu-Medrol. Blood sugar is elevated at 317. The patient is receiving IV Solu-Medrol and she is receiving 60 mg every 6 hours. She is on insulin by scale coverage. Cough is subsiding. On 11/03/2022, no new complaints and the patient is feeling progressively more improved while being on steroids. Cough and shortness of breath subsiding. The patient is on IV Solu-Medrol 60 mg every 6 hours. The patient is currently on room air oxygen with a pulse ox of 96% the blood work shows a WBC count of 13.4 with a hemoglobin of 10.7 and a platelet count of 278. BUN is at 29 with a creatinine of 0.8 his sodiums of 130. Glucose at 228. The blood cultures are essentially negative. 11/02/2022, seeing the patient for a follow-up. Overall condition is progressively improving. Less short of breath as bronchospastic and coughing has subsided significantly. The patient remains on IV Solu-Medrol. I'm going to go ahead and switch the patient to oral prednisone thousand 80 mg by mouth daily. She'll be also taken off the IV Lasix and switch to oral Lasix. No other new complaints otherwise for now. The WBC count is at 10 point with a hemoglobin of 10.7 and platelet count of 272. BUN is 28 with a creatinine of 0.8 and a sodium level is at 131. Blood sugars at 224. No other issues otherwise for now. The patient self reports that she is improving. No fever. No chills. No other complaints. On today's evaluation of 11/05/2022, patient is short of breath and physical remains on 2 L of oxygen by nasal cannula. She is quite uncomfortable. She remains on oral prednisone 80 mg by mouth daily. She is also on Lasix 40 mg by mouth daily. There is no interval worsening in oxygenation. Clinically, the patient is feeling worse. Chest x-ray findings of essentially stable. There is some lower lobe increased interstitial markings bilaterally. Some limited changes also in the upper lobes. WBC count 16, hemoglobin is at 10.7 and a platelet count is at 282. BUN is 26 with a creatinine of 0.9 and his sodium level is at 129. 11/06/2022, patient remains on 2 L of oxygen by nasal cannula. No new complaints. Sodium levels of 127 with patient's potassium levels at 3.4 with a BUN of 22 and a creatinine of 0.9. The the hemoglobin is at 10.8. No other new complaints otherwise for now. Having episodes of cough and this has subsided since yesterday. Objective - Vital Signs Vital signs: Vital Signs Temp 98.2 F 11/06/22 08:16 Pulse 105 H 11/06/22 09:33 Resp 19 11/06/22 09:33 BP 108/71 11/06/22 08:16 Pulse Ox 96 11/06/22 08:16 FiO2 Intake & Output 11/05/22 11/06/22 11/06/22 18:59 06:59 18:59 Intake Total 1320 580 Balance 1320 580 Intake: Oral 1320 580 Other: Voiding Method Toilet Toilet Toilet # Voids 3 # Bowel Movements 2 - Exam No acute distress, oriented 3. Currently on 2 L. No conversational dyspnea or use of accessory muscles. The patient is currently on room air oxygen HEENT examination is grossly unremarkable. Mucous membranes are moist. No oral lesions. Neck supple. Full range of motion. No adenopathy thyromegaly or neck vein distention. Cardiovascular examination reveals regular rhythm rate. S1-S2 normal. No S3 or S4. No discernible murmur noted. Lungs reveal scattered rhonchi. No wheezes or crackles. Breath sounds equal bilaterally. Crackles are appreciated in lung bases bilaterally Abdomen soft bowel sounds are heard. No masses or tenderness. Extremities are intact. No cyanosis or clubbing. Trace lower extremity edema. Skin is without rash or lesion. Neurologic examination is brief but nonfocal. - Labs CBC & Chem 7: 11/06/22 07:46 11/06/22 12:31 Labs: Abnormal Lab Results - Last 24 Hours (Table) 11/05/22 11/05/22 11/05/22 Range/Units 11:55 17:07 20:09 WBC (3.8-10.6) k/uL RBC (3.80-5.40) m/uL Hgb (11.4-16.0) gm/dL Hct (34.0-46.0) % MCV (80.0-100.0) fL RDW (11.5-15.5) % Neutrophils # (1.3-7.7) k/uL Sodium (137-145) mmol/L Potassium (3.5-5.1) mmol/L Chloride (98-107) mmol/L Carbon Dioxide (22-30) mmol/L BUN (7-17) mg/dL Glucose (74-99) mg/dL POC Glucose (mg/dL) 292 H 351 H 231 H (70-110) mg/dL 11/06/22 11/06/22 11/06/22 Range/Units 06:02 07:46 07:46 WBC 13.8 H (3.8-10.6) k/uL RBC 3.34 L (3.80-5.40) m/uL Hgb 10.8 L (11.4-16.0) gm/dL Hct 33.6 L (34.0-46.0) % MCV 100.7 H (80.0-100.0) fL RDW 16.5 H (11.5-15.5) % Neutrophils # 11.1 H (1.3-7.7) k/uL Sodium 127 L (137-145) mmol/L Potassium 3.4 L (3.5-5.1) mmol/L Chloride 85 L (98-107) mmol/L Carbon Dioxide 37 H (22-30) mmol/L BUN 22 H (7-17) mg/dL Glucose 165 H (74-99) mg/dL POC Glucose (mg/dL) 171 H (70-110) mg/dL Assessment and Plan Plan: Acute shortness of breath, likely multifactorial, acute bronchitis with bronchospasm, as well as possible iatrogenic pneumonitis, related to Zejula. I'm also concerned about parenchymal lung involvement with ovarian cancer. The patient has shown limited response to systemic steroids. Infectious causes are felt to be less likely at this point in time. The patient is clinically improving. The patient responded to steroids. CAT scan of the chest shows no major abnormalities and there is some limited Bilateral pleural effusions in the lung base bilaterally. There is bilateral pleural effusion small lung with mediastinal lymphadenopathy and a right upper lobe pulmonary nodule. After showing some limited improvement on high-dose steroids, the patient's symptoms are still active and she is struggling with dyspnea and cough without any interval worsening in oxygenation or chest x-ray findings. Based on my overall impression, the condition is slightly improved compared to yesterday. Nevertheless, the patient is still struggling with her breathing and she will ultimately need a diagnostic bronchoscopy. Acute hypoxic respiratory failure currently on 2 L of oxygen by nasal cannula Metastatic ovarian carcinoma, diagnosed in 2008, with recurrence. The patient has diffuse adenopathy, both in the abdominal cavity and thoracic cavity. Metastatic pulmonary nodule. History of malignant pericardial effusion, status post pericardial window. Plan: Plan Unfortunately, the patient decompensated and she is still having difficulties in breathing. I suspect progression of her malignancy into her lungs and interstitial changes noted are probably related to malignancy. Discussed the findings with the patient I discussed the case with the cardiothoracic surgery. We decided to do a [facility] hoscopy with lavage and transbronchial biopsy. The results are nondiagnostic, we'll consider thoracoscopic right biopsy of this patient. After initial improvement , the patient is back to active symptoms of shortness of breath and cough. Tentative plan is to do a bronchoscopy on this patient by Tuesday.
[2022-11-06 16:13] LABS: Glucose,Whole Blood 363 mg/dL (70-110)
[2022-11-06 20:24] LABS: Glucose,Whole Blood 227 mg/dL (70-110)
[2022-11-06] MEDS: ZYRTEC 10MG TABLET PO SCH (21:50)
[2022-11-07] MEDS: IPRATROPIUM-ALBUTEROL 3 ML NEB INHALATION SCH ×7 (01:02→23:43)
[2022-11-07 06:03] LABS: Glucose,Whole Blood 152 mg/dL (70-110)
[2022-11-07] MEDS: INSULIN ASPART (NovoLOG) 100 UNIT/ML VIAL SQ SCH ×4 (06:40→21:09)
[2022-11-07] MEDS: BUDESONIDE 1 MG/2 ML NEBU INHALATION SCH ×2 (07:44→20:32)
[2022-11-07] MEDS: FORMOTEROL FUMARATE 20 MCG/2 ML NEBU INHALATION SCH ×2 (07:44→20:32)
[2022-11-07 07:48] LABS: Anisocytosis Slight; Basophils % (A) 0 %; Eosinophils # (A) 0.1 k/uL (0-0.7); Eosinophils % (A) 1 %; HCT 34.5 % (34.0-46.0); HGB 11.4 gm/dL (11.4-16.0); Hypochromasia Slight; Lymphocytes # (A) 2.2 k/uL (1.0-4.8); Lymphocytes % (A) 16 %; MCH 32.8 pg (25.0-35.0); MCV 99.4 fL (80.0-100.0); Macrocytosis Slight; Mean Platelet Volume 7.2; Monocytes # (A) 0.6 k/uL (0-1.0); Monocytes % (A) 4 %; Neutrophils # (A) 11.3 k/uL (1.3-7.7); Neutrophils % (A) 79 %; Platelet Count 232 k/uL (150-450); RBC 3.47 m/uL (3.80-5.40); RDW 16.5 % (11.5-15.5); WBC 14.3 k/uL (3.8-10.6)
[2022-11-07 08:01] LABS: ALT 24 U/L (4-34); AST 21 U/L (14-36); African American GFR (CKD) >90 (>60 ml/min/1.73 sqM); Albumin 3.4 g/dL (3.5-5.0); Alkaline Phosphatase 83 U/L (38-126); Anion Gap 6 mmol/L; Blood Urea Nitrogen 16 mg/dL (7-17); Calcium 8.8 mg/dL (8.4-10.2); Carbon Dioxide 34 mmol/L (22-30); Chloride 87 mmol/L (98-107); Glucose 155 mg/dL (74-99); Non-African American GFR(CKD) 85 (>60 ml/min/1.73 sqM); Potassium 3.8 mmol/L (3.5-5.1); Sodium 127 mmol/L (137-145); Total Bilirubin 0.8 mg/dL (0.2-1.3); Total Protein 6.2 g/dL (6.3-8.2)
[2022-11-07] MEDS: FUROSEMIDE 40 MG TAB PO SCH (08:33)
[2022-11-07] MEDS: FAMOTIDINE 20 MG TAB PO SCH ×2 (08:33→21:09)
[2022-11-07] MEDS: BENZONATATE 100 MG CAP PO SCH ×3 (08:33→21:09)
[2022-11-07] MEDS: NYSTATIN 100,000 UNIT/ML SUSP 500,000 UNIT/5 ML CUP PO SCH ×4 (08:33→21:09)
[2022-11-07] MEDS: predniSONE 20 MG TAB PO SCH (08:33)
[2022-11-07] MEDS: ASPIRIN 325 MG TAB PO SCH (08:33)
[2022-11-07] MEDS: FLUTICASONE 50MCG/SPRAY NASAL 16GM EA NOSTRIL SCH ×2 (08:34→21:09)
[2022-11-07] MEDS: MAGNESIUM OXIDE 400 MG TAB PO SCH (08:34)
--- NOTE | 2022-11-07 10:17 | P.PN ---
Subjective Progress Note Date: 11/07/22 This is a 57-year-old female patient of Dr. Aguilar who presented with concerns of increased dyspnea. Patient reports that she was having improvement since previous admission with updraft and prednisone treatment but starts developing increased wheezing and shortness breath increasing over the past few days. patient has extensive medical history including ovarian cancer which was diagnosed 14 years ago and has been maintained on chemo therapy. Additional medical history includes previous episode of pericardial effusion with pericardial window. Chest x-ray showing cardiomegaly with mild pulmonary vascular congestion correlate with BMP for congestive heart failure. COPD changes. Chest CTA completed showing no evidence of pulmonary embolism U small bilateral pleural effusions him a new small pericardial effusion new pulmonary vascular congestion and cardiomegaly correlate with serum BNP. This time patient will be admitted patient's BREATHING treatments, IV Lasix, Solu-Medrol. Pulmonary cardiology and oncology services will be consulted. On 11/01/2022 patient was seen and examined on the telemetry floor she is alert and oriented 3 in no apparent distress she reports improvement in her shortness of breath otherwise she denies any complaints there is no fever or chills no headache or dizziness no chest pain no palpitation no nausea or vomiting no abdominal pain no diarrhea no blood in the stools no burning with urination no frequency or urgency and no hematuria On 11/02/2022 patient was seen and examined on the telemetry floor she is reporting improvement in her shortness of breath, otherwise she denies any complaints there is no fever or chills no headache or dizziness no chest pain no palpitation she has occasional cough no nausea or vomiting no abdominal pain no diarrhea no blood in the stools no burning with urination no frequency or urgency no hematuria. On 11/03/2022 patient is alert and oriented 3. Patient continued to show improvement in regards to breathing. Discussed case with pulmonary team patient will continue IV steroids no plans for bronchoscopy at this time. Patient denies chest pain. Patient denies nausea vomiting or diarrhea. Patient denies any urinary frequency. On 11/04/2022 patient was seen and examined on the medical floor, she is alert and oriented 3 in no apparent distress there is no fever or chills no headache or dizziness no chest pain no shortness of breath no cough no nausea or vomiting no abdominal pain no diarrhea and no urinary symptoms. At this time patient is being switched to oral prednisone and oral Lasix, no plans per pulmonary for bronchoscopy this time, patient has not been yet cleared for discharge, will continue to follow closely. 11/05/2022 patient is alert and oriented 3. Patient having increasing shortness of breath and crackles today. Patient has been transitioned to by mouth prednisone will discuss case with pulmonary services for possible bronchoscopy. Patient remains on Lasix. Her vital signs as 7.6, heart rate 98, respiratory rate 20, blood pressure 126/64 95% on 2 L On 11/06/2022 patient was seen and examined on the telemetry floor she is alert and oriented 3 in no apparent distress, she is reporting some improvement in her shortness of breath since yesterday she is still having occasional cough there is no fever or chills no headache or dizziness no chest pain no nausea or vomiting no abdominal pain no diarrhea no blood in the stools no burning with urination no frequency or urgency and no hematuria. Plan per pulmonary is to continue with current management at this time and to proceed with bronchoscopy on Tuesday. On 11/07/2022 patient is alert and oriented 3. Patient reports improvement with shortness of breath. Plans for bronchoscopy tomorrow and patient also had an episode of atrial flutter cardiology services have been consulted. Heart rate has improved. This time patient denies chest pain. Patient denies nausea vomiting or diarrhea. Patient denies any urinary burning or frequency Objective - Vital Signs Vital signs: Vital Signs Temp 98.3 F 11/07/22 08:29 Pulse 108 H 11/07/22 08:29 Resp 18 11/07/22 08:29 BP 107/73 11/07/22 08:29 Pulse Ox 96 11/07/22 08:29 FiO2 Intake & Output 11/06/22 11/07/22 11/07/22 18:59 06:59 18:59 Intake Total 0 1080 Balance 0 1080 Intake: Oral 0 1080 Other: Voiding Method Toilet Toilet - Exam In general patient is alert and oriented x 3 in no distress HEENT head normocephalic and atraumatic Neck is supple no JVD no goiter no lymphadenopathy no carotid bruit Chest examination is clear to auscultation no crackles no wheezing Cardiac exam reveals regular heart sounds S1 and S2 no gallops no murmurs Abdomen is soft nontender no organomegaly with normal bowel sounds Extremity exam reveals no edema no cyanosis or clubbing Neurological examination reveals no gross focal deficits - Labs CBC & Chem 7: 11/07/22 07:10 11/07/22 07:10 Labs: Abnormal Lab Results - Last 24 Hours (Table) 11/06/22 11/06/22 11/06/22 Range/Units 11:18 16:11 20:21 WBC (3.8-10.6) k/uL RBC (3.80-5.40) m/uL RDW (11.5-15.5) % Neutrophils # (1.3-7.7) k/uL Sodium (137-145) mmol/L Chloride (98-107) mmol/L Carbon Dioxide (22-30) mmol/L Glucose (74-99) mg/dL POC Glucose (mg/dL) 255 H 363 H 227 H (70-110) mg/dL Total Protein (6.3-8.2) g/dL Albumin (3.5-5.0) g/dL 11/07/22 11/07/22 11/07/22 Range/Units 06:01 07:10 07:10 WBC 14.3 H (3.8-10.6) k/uL RBC 3.47 L (3.80-5.40) m/uL RDW 16.5 H (11.5-15.5) % Neutrophils # 11.3 H (1.3-7.7) k/uL Sodium 127 L (137-145) mmol/L Chloride 87 L (98-107) mmol/L Carbon Dioxide 34 H (22-30) mmol/L Glucose 155 H (74-99) mg/dL POC Glucose (mg/dL) 152 H (70-110) mg/dL Total Protein 6.2 L (6.3-8.2) g/dL Albumin 3.4 L (3.5-5.0) g/dL Assessment and Plan Assessment: 1. Acute on chronic hypoxic respiratory failure 2. Pericardial effusion on computed tomography scan of the chest 3. History of pericardial window 4. History of ovarian cancer with metastatic disease 5. Bronchospasms 6. History of oral thrush 7. Atrial flutter. Cardiology services consulted Pulmonary cardiology service is consulted Plans for bronchoscopy on 11/08/2022 Maintained on IV Lasix, IV steroids and DuoNeb breathing treatmen treatments.
[2022-11-07] MEDS: METOPROLOL TARTRATE 12.5 MG TAB PO SCH ×2 (10:37→21:09)
[2022-11-07] MEDS: AMIODARONE 200 MG TAB PO SCH ×2 (10:38→21:09)
[2022-11-07 11:48] LABS: Glucose,Whole Blood 245 mg/dL (70-110)
--- NOTE | 2022-11-07 12:02 | P.CRDCN ---
History of Present Illness Consult date: 11/07/22 Consult reason: atrial flutter History of present illness: The patient is a 57-year-old female with past medical history of ovarian cancer with metastasis, who presented to the hospital with worsening shortness of breath. She was subsequently diagnosed with acute hypoxic respiratory failure. Computed tomography scan showed small bilateral pleural effusion and small pericardial effusion and pulmonary vascular congestion. Cardiology was init ially consulted for congestive heart failure and shortness of breath. Echocardiogram revealed LV function of 55-60% with moderate circumferential pericardial effusion, felt with fiber strands. Overnight the patient developed atrial flutter with RVR. This was after she was in the shower and had been ambulating around her room. The arrhythmia lasted approximately one hour and the patient spontaneously converted back to sinus mechanism. The patient states she did feel her heart rate being elevated but denies any dyspnea or chest discomfort. DIAGNOSTICS: EKG showed Atrial flutter with RVR. Heart rate 165 Telemetry shows sinus mechanism with a heart rates in the low 100s currently REVIEW OF SYSTEMS: No fever or chills. No cough or expectoration. No diaphoresis. Patient denies headache, dizziness, blurred vision, double vision. Patient denies any stomach discomfort. No nausea, vomiting. No hematochezia. No hematemesis. Denies any black stools or blood in his stools. Denies dysuria or hematuria. Positive for weakness and fatigue. Positive for shortness of breath with exertion. PHYSICAL EXAMINATION: This is a 57-year-old female in no apparent distress at the time of my examination. HEENT: Head is atraumatic, normocephalic. Pupils are equal, round. S There is no jugular venous distention. No carotid bruit is heard. CHEST EXAMINATION: Lungs are diminished to auscultation. No chest wall tenderness is noted on palpation or with deep breathing. HEART EXAMINATION: Heart regular rate and rhythm. S1, S2 heard. No murmurs, gallops or rub. ABDOMEN: Soft, nontender. Bowel sounds are heard. No organomegaly noted. EXTREMITIES: 2+ peripheral pulses with no evidence of peripheral edema and no calf tenderness noted. NEUROLOGIC EXAMINATION: Patient is awake, alert and oriented x3. FINAL ASSESSMENT AND PLAN: Atrial flutter with RVR Acute on chronic hypoxic respiratory failure Pericardial effusion History of pericardial window History of ovarian cancer with metastasis Multiple comorbid conditions Hyponatremia Anemia PLAN: Start the patient on oral amiodarone and beta jaki No anticoagulation at this time and she will undergo bronchoscopy with pulmonology Consider anticoagulation if patient has recurrent episodes Further recommendations to be based upon clinical course I am dictating on behalf of Dr Troy Marlow's history/physical and assessment/plan. Past Medical History Past Medical History: Cancer Additional Past Medical History / Comment(s): Hx ovarian cancer /2017 reoccurence ovarian cancer August 2021, recent CT that showed inflammation pressing on trachea, 90 days tapering steroid dose. Pericardial effusion History of Any Multi-Drug Resistant Organisms: None Reported Past Surgical History: Bowel Resection, Cholecystectomy, Hernia Repair, Hysterectomy Additional Past Surgical History / Comment(s): Pericardial window July 2022 Past Anesthesia/Blood Transfusion Reactions: No Reported Reaction Past Psychological History: No Psychological Hx Reported Smoking Status: Never smoker Past Alcohol Use History: None Reported Past Drug Use History: None Reported - Past Family History Father History Unknown: Yes Family Medical History: Hypertension, Myocardial Infarction ([place]) Mother Family Medical History: Diabetes Mellitus, Hypertension Medications and Allergies Home Medications Medication Instructions Recorded Confirmed Type Astragalus Root 2 cap PO Q3H 10/04/22 10/30/22 History Cetirizine HCl [Zyrtec] 10 mg PO HS 10/04/22 10/30/22 History Doterra Copaiba 2 cap PO HS 10/04/22 10/30/22 History Doterra On Guard 2 cap PO DAILY 10/04/22 10/30/22 History Famotidine 20 mg PO BID 10/04/22 10/30/22 History Fluticasone Nasal [place] [Flonase 1 spr EA NOSTRIL BID 10/04/22 10/30/22 History Nasal [place]] Magnesium Taurate 1 cap PO HS 10/04/22 10/30/22 History Formoterol Fumarate [Perforomist] 20 mcg INHALATION RT-BID ml 10/07/22 10/30/22 Rx Ipratropium-Albuterol Nebulize 3 ml INHALATION RT-QID each 10/07/22 10/30/22 Rx [Duoneb 0.5 mg-3 mg/3 ml Soln] Benzonatate [Tessalon Perle] 200 mg PO TID 10/30/22 10/30/22 History Budesonide [Pulmicort] 1 mg INHALATION RT-BID 10/30/22 10/30/22 History Docusate [Colace] 100 mg PO DAILY PRN 10/30/22 10/30/22 History predniSONE 10 mg PO DAILY 10/30/22 10/30/22 History predniSONE See Taper PO DAILY #183 tab 11/05/22 Rx Allergies Allergy/AdvReac Type Severity Reaction Status Date / Time carboplatin Allergy Anaphylaxis Verified 10/30/22 17:28 hydromorphone [From Dilaudid] AdvReac falls Verified 10/30/22 17:28 asleep hard to arouse Physical Exam Vitals: Vital Signs Temp Pulse Pulse Pulse Resp BP Pulse Ox 11/07/22 11:05 104 H 11/07/22 10:53 108 H 11/07/22 10:17 108 H 18 11/07/22 08:29 98.3 F 108 H 18 107/73 96 11/07/22 08:08 104 H 11/07/22 07:58 100 11/07/22 07:57 100 11/07/22 07:46 104 H 96 11/07/22 04:58 101 H 11/07/22 04:46 99 11/07/22 04:00 98.3 F 107 H 16 108/69 96 11/07/22 01:13 99 11/07/22 01:03 100 11/07/22 00:00 97.3 F L 103 H 18 105/71 96 11/06/22 22:25 162 H 18 111/73 94 L 11/06/22 21:58 104 H 11/06/22 21:43 100 11/06/22 21:42 100 11/06/22 21:30 100 11/06/22 20:00 97.9 F 57 L 18 107/72 97 11/06/22 16:13 104 H 18 110/71 93 L 11/06/22 15:17 101 H 11/06/22 15:09 100 11/06/22 14:27 101 H 18 Intake and Output 11/06/22 11/07/22 11/07/22 22:59 06:59 14:59 Intake Total 0 1080 Balance 0 1080 Intake: Oral 0 1080 Other: Voiding Method Toilet Toilet Toilet Results 11/07/22 07:10 11/07/22 07:10 Cardiac Enzymes 11/07/22 Range/Units 07:10 AST 21 (14-36) U/L CBC 11/07/22 Range/Units 07:10 WBC 14.3 H (3.8-10.6) k/uL RBC 3.47 L (3.80-5.40) m/uL Hgb 11.4 (11.4-16.0) gm/dL Hct 34.5 (34.0-46.0) % Plt Count 232 (150-450) k/uL Comprehensive Metabolic Panel 11/06/22 11/07/22 Range/Units 12:31 07:10 Sodium 127 L (137-145) mmol/L Potassium 4.4 3.8 (3.5-5.1) mmol/L Chloride 87 L (98-107) mmol/L Carbon Dioxide 34 H (22-30) mmol/L BUN 16 (7-17) mg/dL Creatinine 0.79 (0.52-1.04) mg/dL Glucose 155 H (74-99) mg/dL Calcium 8.8 (8.4-10.2) mg/dL AST 21 (14-36) U/L ALT 24 (4-34) U/L Alkaline Phosphatase 83 (38-126) U/L Total Protein 6.2 L (6.3-8.2) g/dL Albumin 3.4 L (3.5-5.0) g/dL Current Medications Generic Name Dose Route Start Last Admin Trade Name Freq PRN Reason Stop Dose Admin Albuterol/Ipratropium 3 ml 10/30/22 15:49 11/04/22 03:09 Ipratropium-Albuterol 3 Ml Neb INHALATION 3 ml RT-Q2H PRN Administration Shortness Of Breath Or Wheezing Albuterol/Ipratropium 3 ml 11/05/22 20:00 11/07/22 10:50 Ipratropium-Albuterol 3 Ml Neb INHALATION 3 ml RT-Q4H SAMIR Administration Amiodarone HCl 200 mg 11/07/22 09:45 11/07/22 10:38 Amiodarone 200 Mg Tab PO 200 mg BID SAMIR Administration Aspirin 325 mg 10/31/22 09:00 11/07/22 08:33 Aspirin 325 Mg Tab PO 325 mg DAILY SAMIR Administration Benzonatate 200 mg 10/30/22 22:00 11/07/22 08:33 Benzonatate 100 Mg Cap PO 200 mg TID SAMIR Administration Budesonide 1 mg 10/30/22 20:00 11/07/22 07:44 Budesonide 1 Mg/2 Ml Nebu INHALATION 1 mg RT-BID SAMIR Administration Docusate Sodium 100 mg 10/30/22 18:10 11/05/22 09:23 Docusate 100 Mg Cap PO 100 mg DAILY PRN Administration Constipation Famotidine 20 mg 10/30/22 21:00 11/07/22 08:33 Famotidine 20 Mg Tab PO 20 mg BID SAMIR Administration Fluticasone Propionate 1 spray 10/30/22 21:00 11/07/22 08:34 Fluticasone 50mcg/[place] Nasal 16gm EA NOSTRIL 1 spray BID SAMIR Administration Formoterol Fumarate 20 mcg 10/30/22 20:00 11/07/22 07:44 Formoterol Fumarate 20 Mcg/2 Ml Nebu INHALATION 20 mcg RT-BID SAMIR Administration Furosemide 40 mg 11/05/22 09:00 11/07/22 08:33 Furosemide 40 Mg Tab PO Not Given DAILY SAMIR Ibuprofen 400 mg 10/31/22 10:55 11/01/22 06:04 Ibuprofen 400 Mg Tab PO 400 mg Q6HR PRN Administration Pain Insulin Aspart 0 unit 10/30/22 18:11 11/07/22 06:40 Insulin Aspart (Novolog) 100 Unit/Ml Vial SQ 2 unit ACHS SAMIR Administration Protocol Magnesium Oxide 400 mg 11/03/22 09:00 11/07/22 08:34 Magnesium Oxide 400 Mg Tab PO 400 mg DAILY SAMIR Administration Metoprolol Tartrate 12.5 mg 11/07/22 09:45 11/07/22 10:37 Metoprolol Tartrate 12.5 Mg Tab PO 12.5 mg BID SAMIR Administration Miscellaneous Information 1 each 11/04/22 13:06 Potassium Replacement Protocol 1 Each Misc MISCELLANE DAILY PRN Per Protocol Protocol Miscellaneous Information 1 each 11/06/22 08:41 Potassium Replacement Protocol 1 Each Misc MISCELLANE DAILY PRN Per Protocol Protocol Nitroglycerin 0.4 mg 10/30/22 15:44 Nitroglycerin Sl Tabs 0.4 Mg Tab SUBLINGUAL Q5M PRN Chest Pain Zyrtec 10mg Tablet 1 each 11/02/22 21:00 11/06/22 21:50 PO 1 each HS SAMIR Administration Nystatin 500,000 unit 10/31/22 13:00 11/07/22 08:33 Nystatin 100,000 Unit/Ml Susp 500,000 Unit/5 Ml Cup PO 500,000 unit QID SAMIR Administration Protocol Prednisone 80 mg 11/05/22 09:00 11/07/22 08:33 Prednisone 20 Mg Tab PO 80 mg DAILY SAMIR Administration Intake and Output 11/06/22 11/07/22 11/07/22 22:59 06:59 14:59 Intake Total 0 1080 Balance 0 1080 Intake: Oral 0 1080 Other: Voiding Method Toilet Toilet Toilet 11/07/22 07:10 11/07/22 07:10
--- NOTE | 2022-11-07 12:15 | P.PN ---
Subjective Progress Note Date: 11/07/22 57-year-old female with a history of metastatic ovarian carcinoma, who was seen in the emergency department, on October 30, complaining of shortness of breath, difficulty breathing, cough, chest congestion, and occasional phlegm production. She states that when she weaned herself off the prednisone, her respiratory complaints became worse. I saw her in consultation, September of this year. The patient previously was thought to have pneumonitis, secondary to her chemotherapeutic agent. Currently, the patient is on 2 L of nasal oxygen, with saturations in the mid 90s. She does not appear to be particularly short of breath, does not have any conversational dyspnea, or use of accessory muscles. The patient was given breathing treatments, corticosteroids, and antibiotics. The patient's chest x-ray showed cardiomegaly, mild pulmonary vascular congestion. CT angiogram that was performed, was negative for pulmonary embolism, showed small bilateral pleural effusions, as well as some upper abdominal lymphadenopathy, and a right middle lobe pulmonary nodule. White count is 8.1, hemoglobin 10, hematocrit 31.3, with a platelet count of 210,000. D-dimer was elevated at 1.85. Sodium 128, potassium 4.3, chlorides 96, CO2 22, BUN 9, creatinine 0.58. The rest of the comprehensive metabolic profile is essentially normal. On today's evaluation of 11/01/2022, the patient is feeling slightly better c ompared to yesterday. She remains on steroids. The exact cause for her shortness of breath and persistent cough is not clear. The patient is currently having difficulties in laying down flat because of shortness of breath. 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 The patient was originally diagnosed in 2008 has received multiple treatments, most recently on Zejula started in May 2022 after 7 cycles of Doxil/carboplatin in February 2022 with recent imaging in September 2022 revealing evidence of disease progression who presents for a cute dyspnea. She was hospitalized from 10/04/2022 through 10/07/2022 for dyspnea at that time, which was thought to be related to pneumonia. She did discontinue Zejula 3 weeks prior to her admission. On discharge, she was placed on a steroid taper lasting approximately 15 days and did not have any respiratory issues during this time. After completing the steroid taper, she developed increased dyspnea with wheezing. I reviewed the CAT scans of the chest and I I think it'll be worthwhile for this patient to undergo a high-resolution CAT scan of the chest to assess for any parenchymal progression of tumor versus drug- induced pneumonitis and is same time I discussed with her the potential of that having a biopsy. She is receiving IV Solu-Medrol 60 mg every 6 hours for now. The patient's WBC count is at 15.7 with a hemoglobin 9.5. Sodium is at 127. The ends of 20 with a creatinine 0.8. LFTs are within normal limits. On today's evaluation of 11/02/2022, the patient is feeling much better compared to yesterday. Shortness of breath and cough is essentially improving. The patient underwent a HRCT of the chest yesterday and it showed a right upper lobe pulmonary nodule a reflect elevated previously metastatic nodule in addition to somebody some lymphadenopathy not well characterized on this study. The patient had bilateral pleural effusions and evidence of some limited subpleural groundglass pulmonary infiltrates. There is also evidence of bronchial wall thickening and mild bronchiectasis. As such, there is no significant airspace disease. No clear indication of parenchymal lung abnormalities to suggest parenchymal lung invasion with malignancy. No evidence of any active pneumonia at this point in time. The patient remains on IV Solu-Medrol. Blood sugar is elevated at 317. The patient is receiving IV Solu-Medrol and she is receiving 60 mg every 6 hours. She is on insulin by scale coverage. Cough is subsiding. On 11/03/2022, no new complaints and the patient is feeling progressively more improved while being on steroids. Cough and shortness of breath subsiding. The patient is on IV Solu-Medrol 60 mg every 6 hours. The patient is currently on room air oxygen with a pulse ox of 96% the blood work shows a WBC count of 13.4 with a hemoglobin of 10.7 and a platelet count of 278. BUN is at 29 with a creatinine of 0.8 his sodiums of 130. Glucose at 228. The blood cultures are essentially negative. 11/02/2022, seeing the patient for a follow-up. Overall condition is progressively improving. Less short of breath as bronchospastic and coughing has subsided significantly. The patient remains on IV Solu-Medrol. I'm going to go ahead and switch the patient to oral prednisone thousand 80 mg by mouth daily. She'll be also taken off the IV Lasix and switch to oral Lasix. No other new complaints otherwise for now. The WBC count is at 10 point with a hemoglobin of 10.7 and platelet count of 272. BUN is 28 with a creatinine of 0.8 and a sodium level is at 131. Blood sugars at 224. No other issues otherwise for now. The patient self reports that she is improving. No fever. No chills. No other complaints. On today's evaluation of 11/05/2022, patient is short of breath and physical remains on 2 L of oxygen by nasal cannula. She is quite uncomfortable. She remains on oral prednisone 80 mg by mouth daily. She is also on Lasix 40 mg by mouth daily. There is no interval worsening in oxygenation. Clinically, the patient is feeling worse. Chest x-ray findings of essentially stable. There is some lower lobe increased interstitial markings bilaterally. Some limited changes also in the upper lobes. WBC count 16, hemoglobin is at 10.7 and a platelet count is at 282. BUN is 26 with a creatinine of 0.9 and his sodium level is at 129. 11/06/2022, patient remains on 2 L of oxygen by nasal cannula. No new complaints. Sodium levels of 127 with patient's potassium levels at 3.4 with a BUN of 22 and a creatinine of 0.9. The the hemoglobin is at 10.8. No other new complaints otherwise for now. Having episodes of cough and this has subsided since yesterday. 11/07/2022, the patient remains on 2 L. His overall respiratory status is unchanged and the patient is not having any interval worsening or improvement in her breathing. She continues to have cough especially with deep breathing. Sodium levels of 127. Furthermore, overnight, the patient went to a coughing spell and she went into atrial flutter flutter that lasted for a total of 1 hour and the patient converted into normal sinus rhythm following that. Cardiology has been consulted. The patient was started on amiodarone 200 mg by mouth twice a day and metoprolol 12.5 mg by mouth twice a day. Sodium is at 127, BUN is at 60 with a creatinine of 0.7 and a white cell count is at 14.3. Objective - Vital Signs Vital signs: Vital Signs Temp 98.3 F 11/07/22 08:29 Pulse 108 H 11/07/22 08:29 Resp 18 11/07/22 08:29 BP 107/73 11/07/22 08:29 Pulse Ox 96 11/07/22 08:29 FiO2 Intake & Output 11/06/22 11/07/22 11/07/22 18:59 06:59 18:59 Intake Total 0 1080 Balance 0 1080 Intake: Oral 0 1080 Other: Voiding Method Toilet Toilet - Exam No acute distress, oriented 3. Currently on 2 L. No conversational dyspnea or use of accessory muscles. The patient is currently on room air oxygen HEENT examination is grossly unremarkable. Mucous membranes are moist. No oral lesions. Neck supple. Full range of motion. No adenopathy thyromegaly or neck vein distention. Cardiovascular examination reveals regular rhythm rate. S1-S2 normal. No S3 or S4. No discernible murmur noted. Lungs reveal scattered rhonchi. No wheezes or crackles. Breath sounds equal bilaterally. Crackles are appreciated in lung bases bilaterally Abdomen soft bowel sounds are heard. No masses or tenderness. Extremities are intact. No cyanosis or clubbing. Trace lower extremity edema. Skin is without rash or lesion. Neurologic examination is brief but nonfocal. - Labs CBC & Chem 7: 11/07/22 07:10 11/07/22 07:10 Labs: Abnormal Lab Results - Last 24 Hours (Table) 11/06/22 11/06/22 11/06/22 Range/Units 11:18 16:11 20:21 WBC (3.8-10.6) k/uL RBC (3.80-5.40) m/uL RDW (11.5-15.5) % Neutrophils # (1.3-7.7) k/uL Sodium (137-145) mmol/L Chloride (98-107) mmol/L Carbon Dioxide (22-30) mmol/L Glucose (74-99) mg/dL POC Glucose (mg/dL) 255 H 363 H 227 H (70-110) mg/dL Total Protein (6.3-8.2) g/dL Albumin (3.5-5.0) g/dL 11/07/22 11/07/22 11/07/22 Range/Units 06:01 07:10 07:10 WBC 14.3 H (3.8-10.6) k/uL RBC 3.47 L (3.80-5.40) m/uL RDW 16.5 H (11.5-15.5) % Neutrophils # 11.3 H (1.3-7.7) k/uL Sodium 127 L (137-145) mmol/L Chloride 87 L (98-107) mmol/L Carbon Dioxide 34 H (22-30) mmol/L Glucose 155 H (74-99) mg/dL POC Glucose (mg/dL) 152 H (70-110) mg/dL Total Protein 6.2 L (6.3-8.2) g/dL Albumin 3.4 L (3.5-5.0) g/dL Assessment and Plan Plan: Acute shortness of breath, likely multifactorial, acute bronchitis with bronchospasm, as well as possible iatrogenic pneumonitis, related to Zejula. I'm also concerned about parenchymal lung involvement with ovarian cancer. The patient has shown limited response to systemic steroids. Infectious causes are felt to be less likely at this point in time. The patient is clinically improving. The patient responded to steroids. CAT scan of the chest shows no major abnormalities and there is some limited Bilateral pleural effusions in the lung base bilaterally. There is bilateral pleural effusion small lung with mediastinal lymphadenopathy and a right upper lobe pulmonary nodule. Ongoing shortness of breath despite being on a high dose steroids for almost a week. Drug induced ILD is felt to be less likely. Consider malignancy. The patient will need a diagnostic bronchoscopy. Acute hypoxic respiratory failure currently on 2 L of oxygen by nasal cannula Metastatic ovarian carcinoma, diagnosed in 2008, with recurrence. The patient has diffuse adenopathy, both in the abdominal cavity and thoracic cavity. Metastatic pulmonary nodule. History of malignant pericardial effusion, status post pericardial window. Atrial flutter with rapid ventricular response, converted to normal sinus rhythm Plan: Plan Suspect ovarian cancer affecting lung parenchyma and pulmonary metastases We'll try to do a bronchoscopy and obtain transbronchial biopsy of the left lower lobe which is the most abnormal area based on the CAT scan findings Unfortunately, the patient decompensated and she is still having difficulties in breathing. I suspect progression of her malignancy into her lungs and interstitial changes noted are probably related to malignancy. Discussed the findings with the patient I discussed the case with the cardiothoracic surgery. We decided to do a bronchoscopy with lavage and transbronchial biopsy. The results are nondiagnostic, we'll consider thoracoscopic right biopsy of this patient. After initial improvement , the patient is back to active symptoms of shortness of breath and cough. Tentative plan is to do a bronchoscopy on this patient by Tuesday. Monitor the cardiac rhythm and venture capitalist added beta blockers and amiodarone. Recommending increased amiodarone if possible due to the ongoing pulmonary issues. No anticoagulants for now We'll continue to follow
[2022-11-07 16:44] LABS: Glucose,Whole Blood 285 mg/dL (70-110)
[2022-11-07 20:30] LABS: Glucose,Whole Blood 276 mg/dL (70-110)
[2022-11-07] MEDS: ZYRTEC 10MG TABLET PO SCH (21:09)
[2022-11-07] MEDS: ALPRAZolam 0.25 MG TAB PO PRN (21:53)
[2022-11-08] MEDS: IPRATROPIUM-ALBUTEROL 3 ML NEB INHALATION SCH ×5 (03:31→21:11)
[2022-11-08 06:10] LABS: Glucose,Whole Blood 149 mg/dL (70-110)
[2022-11-08] MEDS: INSULIN ASPART (NovoLOG) 100 UNIT/ML VIAL SQ SCH ×4 (06:13→21:09)
[2022-11-08] MEDS: METOPROLOL TARTRATE 12.5 MG TAB PO SCH ×2 (08:05→21:09)
[2022-11-08] MEDS: FLUTICASONE 50MCG/SPRAY NASAL 16GM EA NOSTRIL SCH ×2 (08:06→21:11)
[2022-11-08] MEDS: predniSONE 20 MG TAB PO SCH (08:06)
[2022-11-08] MEDS: BENZONATATE 100 MG CAP PO SCH ×3 (08:06→21:09)
[2022-11-08] MEDS: FUROSEMIDE 40 MG TAB PO SCH (08:06)
[2022-11-08] MEDS: MAGNESIUM OXIDE 400 MG TAB PO SCH (08:06)
[2022-11-08] MEDS: NYSTATIN 100,000 UNIT/ML SUSP 500,000 UNIT/5 ML CUP PO SCH ×5 (08:06→21:09)
[2022-11-08] MEDS: AMIODARONE 200 MG TAB PO SCH ×2 (08:06→21:09)
[2022-11-08] MEDS: FAMOTIDINE 20 MG TAB PO SCH ×2 (08:06→21:09)
[2022-11-08] MEDS: ASPIRIN 325 MG TAB PO SCH (08:06)
[2022-11-08] MEDS: ALPRAZolam 0.25 MG TAB PO PRN ×2 (08:10→21:08)
[2022-11-08 08:11] LABS: Anisocytosis Slight; Basophils % (A) 0 %; Eosinophils % (A) 0 %; HCT 32.5 % (34.0-46.0); HGB 10.4 gm/dL (11.4-16.0); Hypochromasia Slight; Lymphocytes # (A) 2.3 k/uL (1.0-4.8); Lymphocytes % (A) 15 %; MCH 31.6 pg (25.0-35.0); MCHC 31.9 g/dL (31.0-37.0); MCV 99.1 fL (80.0-100.0); Macrocytosis Slight; Mean Platelet Volume 7.7; Monocytes # (A) 0.6 k/uL (0-1.0); Monocytes % (A) 4 %; Neutrophils # (A) 12.2 k/uL (1.3-7.7); Neutrophils % (A) 80 %; Platelet Count 224 k/uL (150-450); Poikilocytosis Slight; RBC 3.28 m/uL (3.80-5.40); RDW 16.4 % (11.5-15.5); WBC 15.3 k/uL (3.8-10.6)
[2022-11-08 08:45] LABS: ALT 21 U/L (4-34); AST 19 U/L (14-36); African American GFR (CKD) >90 (>60 ml/min/1.73 sqM); Albumin 3.2 g/dL (3.5-5.0); Alkaline Phosphatase 78 U/L (38-126); Anion Gap 5 mmol/L; Blood Urea Nitrogen 17 mg/dL (7-17); Calcium 8.4 mg/dL (8.4-10.2); Carbon Dioxide 32 mmol/L (22-30); Chloride 87 mmol/L (98-107); Glucose 137 mg/dL (74-99); Non-African American GFR(CKD) 80 (>60 ml/min/1.73 sqM); Potassium 3.7 mmol/L (3.5-5.1); Sodium 124 mmol/L (137-145); Total Bilirubin 0.8 mg/dL (0.2-1.3); Total Protein 5.7 g/dL (6.3-8.2)
[2022-11-08] MEDS: FORMOTEROL FUMARATE 20 MCG/2 ML NEBU INHALATION SCH ×2 (09:14→21:11)
[2022-11-08] MEDS: BUDESONIDE 1 MG/2 ML NEBU INHALATION SCH ×2 (09:14→21:11)
--- NOTE | 2022-11-08 10:34 | P.PN ---
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 Patient has a history of ovarian cancer with metastasis. Patient was also found to have bilateral pleural effusions and mediastinal lymphadenopathy. Patient noted to have a right upper lobe pulmonary nodule. She is scheduled to undergo bronchoscopy today with pulmonary services. She denies chest pain or pressure. She reports mild shortness of breath. Telemetry reveals sinus mechanism. No further episodes of atrial flutter. Echocardiogram completed revealing ejection fraction 55-60% PHYSICAL EXAM: VITAL SIGNS: Reviewed. GENERAL: Well-developed in no acute distress. NECK: Supple. No JVD or thyromegaly LUNGS: Respirations even and unlabored. Lungs diminished with rhonchi noted. HEART: Regular rate and rhythm. S1 and S2 heard. EXTREMITIES: Normal range of motion. No clubbing or cyanosis. Peripheral pulses intact. No lower extremity edema ASSESSMENT: Shortness of breath History of ovarian cancer with metastasis Bilateral pleural effusions with mediastinal lymphadenopathy and right upper lobe pulmonary nodule New onset paroxysmal atrial flutter with RVR, currently maintaining sinus mechanism History of malignant pericardial effusion, status post pericardial window Leukocytosis Hyponatremia PLAN: Discontinue aspirin Continue current dose of metoprolol tartrate 12.5 mg twice a day Continue amiodarone 200 mg twice a day No plans for anticoagulation as patients CHADVASC score is 1 Patient scheduled for bronchoscopy today with pulmonary services Further recommendations pending patient's course Nurse practitioner note has been reviewed by physician. Signing provider agrees with the documented findings, assessment, and plan of care. Objective - Vital Signs Vital signs: Vital Signs Temp 98.2 F 11/08/22 08:00 Pulse 94 11/08/22 09:45 Resp 18 11/08/22 09:04 BP 115/80 11/08/22 08:00 Pulse Ox 96 11/08/22 09:18 FiO2 Intake & Output 11/07/22 11/08/22 11/08/22 18:59 06:59 18:59 Intake Total 0 Balance 0 Intake: Oral 0 Other: Voiding Method Toilet Toilet Toilet # Voids 1 - Labs CBC & Chem 7: 11/08/22 06:41 11/08/22 06:41 Labs: Abnormal Lab Results - Last 24 Hours (Table) 11/07/22 11/07/22 11/07/22 Range/Units 11:46 16:42 20:25 WBC (3.8-10.6) k/uL RBC (3.80-5.40) m/uL Hgb (11.4-16.0) gm/dL Hct (34.0-46.0) % RDW (11.5-15.5) % Neutrophils # (1.3-7.7) k/uL Sodium (137-145) mmol/L Chloride (98-107) mmol/L Carbon Dioxide (22-30) mmol/L Glucose (74-99) mg/dL POC Glucose (mg/dL) 245 H 285 H 276 H (70-110) mg/dL Total Protein (6.3-8.2) g/dL Albumin (3.5-5.0) g/dL 11/08/22 11/08/22 11/08/22 Range/Units 06:08 06:41 06:41 WBC 15.3 H (3.8-10.6) k/uL RBC 3.28 L (3.80-5.40) m/uL Hgb 10.4 L (11.4-16.0) gm/dL Hct 32.5 L (34.0-46.0) % RDW 16.4 H (11.5-15.5) % Neutrophils # 12.2 H (1.3-7.7) k/uL Sodium 124 L (137-145) mmol/L Chloride 87 L (98-107) mmol/L Carbon Dioxide 32 H (22-30) mmol/L Glucose 137 H (74-99) mg/dL POC Glucose (mg/dL) 149 H (70-110) mg/dL Total Protein 5.7 L (6.3-8.2) g/dL Albumin 3.2 L (3.5-5.0) g/dL
[2022-11-08] MEDS ORDERED: PROPOFOL 10 MG/ML 20 ML VIAL IV ONE (10:46)
[2022-11-08] MEDS ORDERED: MIDAZOLAM 2 MG/2 ML VIAL ONE (10:46)
[2022-11-08] MEDS ORDERED: LIDOCAINE 2% INJ 20 MG/ML (2 ML VIAL) ONE (10:46)
[2022-11-08] MEDS ORDERED: fentaNYL (PF) 50 MCG/ML 2 ML AMP ONE (10:46)
[2022-11-08] MEDS ORDERED: SUCCINYLCHOLINE CHLORIDE 200 MG/10 ML VIAL IV ONE (10:46)
[2022-11-08] MEDS ORDERED: EPINEPHrine 10 ML SYRINGE (0.1 MG/ML) MISCELLANE ONE (11:10)
[2022-11-08] MEDS ORDERED: SODIUM CHLORIDE 0.9% 500 ML 500 ML IV ONE (11:19)
--- NOTE | 2022-11-08 11:53 | FL ---
Fluoroscopy INDICATION: Pain FINDINGS: Fluoroscopy time: 1.2 seconds. Total dose area product (DAP) in uGy*m?, mGy*cm? (or similar): 0.1231 Images obtained: 2. IMPRESSIONS: 1. Documentation of fluoroscopy.
[2022-11-08 12:06] LABS: Glucose,Whole Blood 283 mg/dL (70-110)
--- NOTE | 2022-11-08 12:29 | OP ---
OPERATIVE REPORT DATE OF SERVICE : PROCEDURES PERFORMED: Bronchoscopy, multiple endobronchial biopsies of right upper lobe endobronchial tumor. Endobronchial biopsies of right middle lobe endobronchial tumor. Bronchoalveolar lavage of the left lower lobe. Brushings of the right upper lobe tumor. Washings of right upper lobe tumor. PREOPERATIVE DIAGNOSIS: Metastatic ovarian cancer to the lungs. POSTOPERATIVE DIAGNOSIS: Metastatic ovarian cancer to the lungs. ANESTHESIA USED: The patient underwent bronchoscopy with general anesthesia. DESCRIPTION OF PROCEDURE: The patient was brought into the bronchoscopy suite, placed in a supine position, we monitored her O2 saturation, blood pressure was intermittently monitored, cardiac rhythm was continuously monitored. The patient was seen by Anesthesia, and she was intubated and an endotracheal tube was placed and connected to mechanical ventilation. Then, the bronchoscope was advanced down through the endotracheal tube down to the area of the ysabel, which was noted to be normal. Thorough examination was done on both sides; however, as I went into the right mainstem bronchus, I could easily visualize a large endobronchial tumor, cauliflower tumor completely occluding the right upper lobe. There was also evidence of extrinsic compression with complete occlusion of the right lower lobe. The right middle lobe, there was an endobronchial tumor in the medial aspect of the right middle lobe; however, was slightly extrinsically compressed, but I could visualize the medial segment of the right middle lobe and the lateral segment of the right middle lobe. Otherwise, on the right side, there was significant involvement of the right upper lobe bronchus as noted above earlier and significant involvement of the right lower lobe bronchus. Multiple biopsies were done from the right upper lobe bronchus and a couple of biopsies were done from the right middle lobe endobronchial tumor. Then, washings and brushings were done of the right upper lobe tumor area. Moving to the left side, there was no evidence of any endobronchial tumors, no significant findings on the left side, but considering the chest x-ray was abnormal on the left side, a lavage of the left lower lobe was performed, and this was sent for different diagnostic studies. The procedure was well tolerated, no complications. Blood loss was minimal. MMODL / IJN: [id number] /
--- NOTE | 2022-11-08 13:23 | P.PN ---
Subjective Progress Note Date: 11/08/22 Principal diagnosis: Metastatic ovarian cancer to lungs 57-year-old female with a history of metastatic ovarian carcinoma, who was seen in the emergency department, on October 30, complaining of shortness of breath, difficulty breathing, cough, chest congestion, and occasional phlegm production. She states that when she weaned herself off the prednisone, her respiratory complaints became worse. I saw her in consultation, September of this year. The patient previously was thought to have pneumonitis, secondary to her chemotherapeutic agent. Currently, the patient is on 2 L of nasal oxygen, with saturations in the mid 90s. She does not appear to be particularly short of breath, does not have any conversational dyspnea, or use of accessory muscles. The patient was given breathing treatments, corticosteroids, and antibiotics. The patient's chest x-ray showed cardiomegaly, mild pulmonary vascular congestion. CT angiogram that was performed, was negative for pulmonary embol ism, showed small bilateral pleural effusions, as well as some upper abdominal lymphadenopathy, and a right middle lobe pulmonary nodule. White count is 8.1, hemoglobin 10, hematocrit 31.3, with a platelet count of 210,000. D-dimer was elevated at 1.85. Sodium 128, potassium 4.3, chlorides 96, CO2 22, BUN 9, creatinine 0.58. The rest of the comprehensive metabolic profile is essentially normal. On today's evaluation of 11/01/2022, the patient is feeling slightly better compared to yesterday. She remains on steroids. The exact cause for her shortness of breath and persistent cough is not clear. The patient is currently having difficulties in laying down flat because of shortness of breath. 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 The patient was originally diagnosed in 2008 has received multiple treatments, most recently on Zejula started in May 2022 after 7 cycles of Doxil/carboplatin in February 2022 with recent imaging in September 2022 revealing evidence of disease progression who presents for acute dyspnea. She was hospitalized from 10/04/2022 through 10/07/2022 for dyspnea at that time, which was thought to be related to pneumonia. She did discontinue Zejula 3 weeks prior to her admission. On discharge, she was placed on a steroid taper lasting approximately 15 days and did not have any respiratory issues during this time. After completing the steroid taper, she developed increased dyspnea with wheezing. I reviewed the CAT scans of the chest and I I think it'll be worthwhile for this patient to undergo a high- resolution CAT scan of the chest to assess for any parenchymal progression of tumor versus drug-induced pneumonitis and is same time I discussed with her the potential of that having a biopsy. She is receiving IV Solu-Medrol 60 mg every 6 hours for now. The patient's WBC count is at 15.7 with a hemoglobin 9.5. Sodium is at 127. The ends of 20 with a creatinine 0.8. LFTs are within normal limits. On today's evaluation of 11/02/2022, the patient is feeling much better compared to yesterday. Shortness of breath and cough is essentially improving. The patient underwent a HRCT of the chest yesterday and it showed a right upper lobe pulmonary nodule a reflect elevated previously metastatic nodule in addition to somebody some lymphadenopathy not well characterized on this study. The patient had bilateral pleural effusions and evidence of some limited subpleural groundglass pulmonary infiltrates. There is also evidence of bronchial wall thickening and mild bronchiectasis. As such, there is no significant airspace disease. No clear indication of parenchymal lung abnormalities to suggest parenchymal lung invasion with malignancy. No evidence of any active pneumonia at this point in time. The patient remains on IV Solu-Medrol. Blood sugar is elevated at 317. The patient is receiving IV Solu-Medrol and she is receiving 60 mg every 6 hours. She is on insulin by scale coverage. Cough is subsiding. On 11/03/2022, no new complaints and the patient is feeling progressively more improved while being on steroids. Cough and shortness of breath subsiding. The patient is on IV Solu-Medrol 60 mg every 6 hours. The patient is currently on room air oxygen with a pulse ox of 96% the blood work shows a WBC count of 13.4 with a hemoglobin of 10.7 and a platelet count of 278. BUN is at 29 with a creatinine of 0.8 his sodiums of 130. Glucose at 228. The blood cultures are essentially negative. 11/02/2022, seeing the patient for a follow-up. Overall condition is progressively improving. Less short of breath as bronchospastic and coughing has subsided significantly. The patient remains on IV Solu-Medrol. I'm going to go ahead and switch the patient to oral prednisone thousand 80 mg by mouth daily. She'll be also taken off the IV Lasix and switch to oral Lasix. No other new complaints otherwise for now. The WBC count is at 10 point with a hemoglobin of 10.7 and platelet count of 272. BUN is 28 with a creatinine of 0.8 and a sodium level is at 131. Blood sugars at 224. No other issues otherwise for now. The patient self reports that she is improving. No fever. No chills. No other complaints. On today's evaluation of 11/05/2022, patient is short of breath and physical remains on 2 L of oxygen by nasal cannula. She is quite uncomfortable. She remains on oral prednisone 80 mg by mouth daily. She is also on Lasix 40 mg by mouth daily. There is no interval worsening in oxygenation. Clinically, the patient is feeling worse. Chest x-ray findings of essentially stable. There is some lower lobe increased interstitial markings bilaterally. Some limited changes also in the upper lobes. WBC count 16, hemoglobin is at 10.7 and a platelet count is at 282. BUN is 26 with a creatinine of 0.9 and his sodium level is at 129. 11/06/2022, patient remains on 2 L of oxygen by nasal cannula. No new complaints. Sodium levels of 127 with patient's potassium levels at 3.4 with a BUN of 22 and a creatinine of 0.9. The the hemoglobin is at 10.8. No other new complaints otherwise for now. Having episodes of cough and this has subsided since yesterday. 11/07/2022, the patient remains on 2 L. His overall respiratory status is un changed and the patient is not having any interval worsening or improvement in her breathing. She continues to have cough especially with deep breathing. Sodium levels of 127. Furthermore, overnight, the patient went to a coughing spell and she went into atrial flutter flutter that lasted for a total of 1 hour and the patient converted into normal sinus rhythm following that. Cardiology has been consulted. The patient was started on amiodarone 200 mg by mouth twice a day and metoprolol 12.5 mg by mouth twice a day. Sodium is at 127, BUN is at 60 with a creatinine of 0.7 and a white cell count is at 14.3. Reevaluated today on 11/08/2022, patient continues to have intermittent episodes of cough, almost continuous, continues to have shortness of breath, I discussed her condition with Dr. Farfan earlier today, and recommended that we proceed with bronchoscopy this was done today, please refer to the full operative report, patient was found to have significant endobronchial tumor involving the right upper lobe, right lower lobe, and these were both almost nearly occluded there is also an endobronchial tumor in the right middle lobe, multiple biopsies were done. Findings were discussed with the . We will ask oncology to that the patient, may also involve radiation oncology labs today showed relatively normal CBC with beverage, 15.3 hemoglobin 10.4 sodium remains low at 124, patient may be developing a picture of SIADH. Objective - Vital Signs Vital signs: Vital Signs Temp 97 F L 11/08/22 11:25 Pulse 96 11/08/22 13:12 Resp 18 11/08/22 12:04 BP 107/73 11/08/22 12:04 Pulse Ox 93 L 11/08/22 12:04 FiO2 Intake & Output 11/07/22 11/08/22 11/08/22 18:59 06:59 18:59 Intake Total 0 220 Balance 0 220 Intake: IV 220 Oral 0 Other: Voiding Method Toilet Toilet Toilet # Voids 1 - Exam Physical Exam: Revealed 57-year-old female in no distress on 2 L nasal cannula Head: Atraumatic, normocephalic. HEENT:[Neck is supple.] [No neck masses.] [No thyromegaly.] [No JVD.] Chest: Scattered rhonchi and wheezes noted bilaterally. Cardiac Exam: [Normal S1 and S2, no S3 gallop, no murmur.] Abdomen: [Soft, nontender, no megaly, no rebound, no guarding, normal bowel sounds.] Extremities: [No clubbing, no edema, no cyanosis.] Neurological Exam: [No focal neurologic deficit.] Alert oriented 3. Psychiatric: Normal mood affect and normal mental status examination. Skin: No rashes - Labs CBC & Chem 7: 11/08/22 06:41 11/08/22 06:41 Labs: Abnormal Lab Results - Last 24 Hours (Table) 11/07/22 11/07/22 11/08/22 Range/Units 16:42 20:25 06:08 WBC (3.8-10.6) k/uL RBC (3.80-5.40) m/uL Hgb (11.4-16.0) gm/dL Hct (34.0-46.0) % RDW (11.5-15.5) % Neutrophils # (1.3-7.7) k/uL Sodium (137-145) mmol/L Chloride (98-107) mmol/L Carbon Dioxide (22-30) mmol/L Glucose (74-99) mg/dL POC Glucose (mg/dL) 285 H 276 H 149 H (70-110) mg/dL Total Protein (6.3-8.2) g/dL Albumin (3.5-5.0) g/dL 11/08/22 11/08/22 11/08/22 Range/Units 06:41 06:41 12:04 WBC 15.3 H (3.8-10.6) k/uL RBC 3.28 L (3.80-5.40) m/uL Hgb 10.4 L (11.4-16.0) gm/dL Hct 32.5 L (34.0-46.0) % RDW 16.4 H (11.5-15.5) % Neutrophils # 12.2 H (1.3-7.7) k/uL Sodium 124 L (137-145) mmol/L Chloride 87 L (98-107) mmol/L Carbon Dioxide 32 H (22-30) mmol/L Glucose 137 H (74-99) mg/dL POC Glucose (mg/dL) 283 H (70-110) mg/dL Total Protein 5.7 L (6.3-8.2) g/dL Albumin 3.2 L (3.5-5.0) g/dL Assessment and Plan Assessment: Impression: Metastatic ovarian cancer with significant involvement of the right upper lobe and right middle lobe as well as right lower lobe Acute hypoxic respiratory failure secondary to above Diffuse thoracic adenopathy secondary to metastatic ovarian cancer History of malignant pericardial effusion requiring a pericardial window Paroxysmal atrial flutter Hyponatremia suspect SIADH Recommendation: Patient underwent bronchoscopy today, findings were discussed with the Pathology from endobronchial biopsies are pending Cultures from the left lower lobe are pending Continue present supportive care measures for now, We will consult oncology and possibly radiation oncology We will continue to follow Overall prognosis is poor and guarded. Time with Patient: Less than 30
[2022-11-08 16:31] LABS: Glucose,Whole Blood 338 mg/dL (70-110)
[2022-11-08] MEDS: FLUCONAZOLE 150 MG TAB PO SCH (17:19)
--- NOTE | 2022-11-08 17:30 | P.PN ---
Subjective Progress Note Date: 11/08/22 This is a 57-year-old female patient of Dr. Aguilar who presented with concerns of increased dyspnea. Patient reports that she was having improvement since previous admission with updraft and prednisone treatment but starts developing increased wheezing and shortness breath increasing over the past few days. patient has extensive medical history including ovarian cancer which was diagnosed 14 years ago and has been maintained on chemo therapy. Additional medical history includes previous episode of pericardial effusion with pericardial window. Chest x-ray showing cardiomegaly with mild pulmonary vascular congestion correlate with BMP for congestive heart failure. COPD changes. Chest CTA completed showing no evidence of pulmonary embolism U small bilateral pleural effusions him a new small pericardial effusion new pulmonary vascular congestion and cardiomegaly correlate with serum BNP. This time patient will be admitted patient's BREATHING treatments, IV Lasix, Solu-Medrol. Pulmonary cardiology and oncology services will be consulted. On 11/01/2022 patient was seen and examined on the telemetry floor she is alert and oriented 3 in no apparent distress she reports improvement in her shortness of breath otherwise she denies any complaints there is no fever or chills no headache or dizziness no chest pain no palpitation no nausea or vomiting no abdominal pain no diarrhea no blood in the stools no burning with urination no frequency or urgency and no hematuria On 11/02/2022 patient was seen and examined on the telemetry floor she is reporting improvement in her shortness of breath, otherwise she denies any complaints there is no fever or chills no headache or dizziness no chest pain no palpitation she has occasional cough no nausea or vomiting no abdominal pain no diarrhea no blood in the stools no burning with urination no frequency or urgency no hematuria. On 11/03/2022 patient is alert and oriented 3. Patient continued to show improvement in regards to breathing. Discussed case with pulmonary team patient will continue IV steroids no plans for bronchoscopy at this time. Patient denies chest pain. Patient denies nausea vomiting or diarrhea. Patient denies any urinary frequency. On 11/04/2022 patient was seen and examined on the medical floor, she is alert and oriented 3 in no apparent distress there is no fever or chills no headache or dizziness no chest pain no shortness of breath no cough no nausea or vomiting no abdominal pain no diarrhea and no urinary symptoms. At this time patient is being switched to oral prednisone and oral Lasix, no plans per pulmonary for bronchoscopy this time, patient has not been yet cleared for discharge, will continue to follow closely. 11/05/2022 patient is alert and oriented 3. Patient having increasing shortness of breath and crackles today. Patient has been transitioned to by mouth prednisone will discuss case with pulmonary services for possible bronchoscopy. Patient remains on Lasix. Her vital signs as 7.6, heart rate 98, respiratory rate 20, blood pressure 126/64 95% on 2 L On 11/06/2022 patient was seen and examined on the telemetry floor she is alert and oriented 3 in no apparent distress, she is reporting some improvement in her shortness of breath since yesterday she is still having occasional cough there is no fever or chills no headache or dizziness no chest pain no nausea or vomiting no abdominal pain no diarrhea no blood in the stools no burning with urination no frequency or urgency and no hematuria. Plan per pulmonary is to continue with current management at this time and to proceed with bronchoscopy on Tuesday. On 11/07/2022 patient is alert and oriented 3. Patient reports improvement with shortness of breath. Plans for bronchoscopy tomorrow and patient also had an episode of atrial flutter cardiology services have been consulted. Heart rate has improved. This time patient denies chest pain. Patient denies nausea vomiting or diarrhea. Patient denies any urinary burning or frequency. On 11/08/2022 patient was seen and examined on the medical floor she is alert and oriented 3 in no apparent distress there is no fever or chills no headache or dizziness no chest pain, she is still complaining of shortness of breath and cough no nausea or vomiting no abdominal pain no diarrhea and no urinary symptoms Objective - Vital Signs Vital signs: Vital Signs Temp 98.2 F 11/08/22 08:00 Pulse 104 H 11/08/22 08:00 Resp 18 11/08/22 08:00 BP 115/80 11/08/22 08:00 Pulse Ox 96 11/08/22 08:00 FiO2 Intake & Output 11/07/22 11/08/22 11/08/22 18:59 06:59 18:59 Intake Total 0 Balance 0 Intake: Oral 0 Other: Voiding Method Toilet Toilet # Voids 1 - Exam In general patient is alert and oriented x 3 in no distress HEENT head normocephalic and atraumatic Neck is supple no JVD no goiter no lymphadenopathy no carotid bruit Chest examination is clear to auscultation no crackles no wheezing Cardiac exam reveals regular heart sounds S1 and S2 no gallops no murmurs Abdomen is soft nontender no organomegaly with normal bowel sounds Extremity exam reveals no edema no cyanosis or clubbing Neurological examination reveals no gross focal deficits - Labs CBC & Chem 7: 11/08/22 06:41 11/08/22 06:41 Labs: Abnormal Lab Results - Last 24 Hours (Table) 11/07/22 11/07/22 11/07/22 Range/Units 11:46 16:42 20:25 WBC (3.8-10.6) k/uL RBC (3.80-5.40) m/uL Hgb (11.4-16.0) gm/dL Hct (34.0-46.0) % RDW (11.5-15.5) % Neutrophils # (1.3-7.7) k/uL Sodium (137-145) mmol/L Chloride (98-107) mmol/L Carbon Dioxide (22-30) mmol/L Glucose (74-99) mg/dL POC Glucose (mg/dL) 245 H 285 H 276 H (70-110) mg/dL Total Protein (6.3-8.2) g/dL Albumin (3.5-5.0) g/dL 11/08/22 11/08/22 11/08/22 Range/Units 06:08 06:41 06:41 WBC 15.3 H (3.8-10.6) k/uL RBC 3.28 L (3.80-5.40) m/uL Hgb 10.4 L (11.4-16.0) gm/dL Hct 32.5 L (34.0-46.0) % RDW 16.4 H (11.5-15.5) % Neutrophils # 12.2 H (1.3-7.7) k/uL Sodium 124 L (137-145) mmol/L Chloride 87 L (98-107) mmol/L Carbon Dioxide 32 H (22-30) mmol/L Glucose 137 H (74-99) mg/dL POC Glucose (mg/dL) 149 H (70-110) mg/dL Total Protein 5.7 L (6.3-8.2) g/dL Albumin 3.2 L (3.5-5.0) g/dL Assessment and Plan Assessment: 1. Acute on chronic hypoxic respiratory failure 2. Pericardial effusion on computed tomography scan of the chest 3. History of pericardial window 4. History of ovarian cancer with metastatic disease 5. Bronchospasms 6. History of oral thrush 7. Atrial flutter. Cardiology services consulted Pulmonary cardiology service is consulted Plans for bronchoscopy on 11/08/2022 Maintained on IV Lasix, IV steroids and DuoNeb breathing treatmen treatments.
[2022-11-08 20:07] LABS: Glucose,Whole Blood 249 mg/dL (70-110)
[2022-11-08] MEDS: DEMECLOCYCLINE 150 MG TAB PO SCH (21:09)
[2022-11-08] MEDS: ZYRTEC 10MG TABLET PO SCH (21:11)
[2022-11-09] MEDS: IPRATROPIUM-ALBUTEROL 3 ML NEB INHALATION SCH ×6 (00:17→21:25)
[2022-11-09] MEDS: IBUPROFEN 400 MG TAB PO PRN ×4 (03:44→23:33)
[2022-11-09] MEDS: ALPRAZolam 0.25 MG TAB PO PRN (04:50)
[2022-11-09 05:58] LABS: Glucose,Whole Blood 167 mg/dL (70-110)
[2022-11-09] MEDS: INSULIN ASPART (NovoLOG) 100 UNIT/ML VIAL SQ SCH ×4 (06:07→20:18)
[2022-11-09 08:10] LABS: Anisocytosis Slight; Basophils % (A) 0 %; Eosinophils # (A) 0.1 k/uL (0-0.7); Eosinophils % (A) 0 %; HGB 10.7 gm/dL (11.4-16.0); Hypochromasia Slight; Lymphocytes # (A) 2.3 k/uL (1.0-4.8); Lymphocytes % (A) 13 %; MCH 32.5 pg (25.0-35.0); MCHC 32.4 g/dL (31.0-37.0); MCV 100.1 fL (80.0-100.0); Macrocytosis Slight; Mean Platelet Volume 7.3; Monocytes # (A) 0.8 k/uL (0-1.0); Monocytes % (A) 4 %; Neutrophils # (A) 15.1 k/uL (1.3-7.7); Neutrophils % (A) 82 %; Platelet Count 236 k/uL (150-450); RDW 16.5 % (11.5-15.5); WBC 18.4 k/uL (3.8-10.6)
[2022-11-09 08:24] LABS: ALT 26 U/L (4-34); AST 25 U/L (14-36); African American GFR (CKD) 75 (>60 ml/min/1.73 sqM); Albumin 3.3 g/dL (3.5-5.0); Alkaline Phosphatase 93 U/L (38-126); Anion Gap 7 mmol/L; Blood Urea Nitrogen 24 mg/dL (7-17); Calcium 8.7 mg/dL (8.4-10.2); Carbon Dioxide 30 mmol/L (22-30); Chloride 86 mmol/L (98-107); Glucose 139 mg/dL (74-99); Non-African American GFR(CKD) 65 (>60 ml/min/1.73 sqM); Potassium 4.4 mmol/L (3.5-5.1); Sodium 123 mmol/L (137-145); Total Bilirubin 0.9 mg/dL (0.2-1.3); Total Protein 5.8 g/dL (6.3-8.2)
[2022-11-09] MEDS: FAMOTIDINE 20 MG TAB PO SCH ×2 (08:29→20:18)
[2022-11-09] MEDS: predniSONE 20 MG TAB PO SCH (08:29)
[2022-11-09] MEDS: MAGNESIUM OXIDE 400 MG TAB PO SCH (08:29)
[2022-11-09] MEDS: BENZONATATE 100 MG CAP PO SCH ×3 (08:30→20:18)
[2022-11-09] MEDS: AMIODARONE 200 MG TAB PO SCH ×2 (08:30→20:18)
[2022-11-09] MEDS: METOPROLOL TARTRATE 12.5 MG TAB PO SCH ×2 (08:30→20:18)
[2022-11-09] MEDS: FUROSEMIDE 40 MG TAB PO SCH (08:30)
[2022-11-09] MEDS: FLUTICASONE 50MCG/SPRAY NASAL 16GM EA NOSTRIL SCH ×2 (08:33→20:19)
[2022-11-09] MEDS: NYSTATIN 100,000 UNIT/ML SUSP 500,000 UNIT/5 ML CUP PO SCH ×4 (08:33→20:18)
[2022-11-09] MEDS: DEMECLOCYCLINE 150 MG TAB PO SCH ×2 (08:33→20:18)
[2022-11-09] MEDS: BUDESONIDE 1 MG/2 ML NEBU INHALATION SCH ×2 (09:28→21:24)
[2022-11-09] MEDS: FORMOTEROL FUMARATE 20 MCG/2 ML NEBU INHALATION SCH ×2 (09:28→21:24)
[2022-11-09] MEDS: SODIUM CHLORIDE 0.9% 1,000 ML IV STA ×2 (09:57→13:21)
[2022-11-09] MEDS: HYDROcodone/APAP 5-325MG 1 EACH TAB PO PRN (10:00)
[2022-11-09] MEDS ORDERED: HYDROCORTISONE SUCCINATE 100 MG/2 ML VIAL IV SCH (10:00)
[2022-11-09] MEDS: FLUCONAZOLE 150 MG TAB PO SCH (10:25)
[2022-11-09] MEDS: DOCUSATE 100 MG CAP PO PRN (10:25)
[2022-11-09 10:29] LABS: Total Protein 5.9 g/dL (6.3-8.2)
--- NOTE | 2022-11-09 11:03 | P.PN ---
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 Patient has a history of ovarian cancer with metastasis. Patient was also found to have bilateral pleural effusions and mediastinal lymphadenopathy. Patient noted to have a right upper lobe pulmonary nodule. She is scheduled to undergo bronchoscopy today with pulmonary services. She denies chest pain or pressure. She reports mild shortness of breath. Telemetry reveals sinus mechanism. No further episodes of atrial flutter. Echocardiogram completed revealing ejection fraction 55-60% 11/09/2022 Patient examined this morning. She is sitting up in chair. Patient's family is present. Patient underwent bronchoscopy yesterday with pulmonary services. Patient reports feeling weak and tired this morning. She also reports having spasms throughout her body. She complains of back spasms when she coughs. Telemetry reveals sinus mechanism. Patient reports she has not been able to eat or drink much because of her thrush. She feels like she might be dehydrated. IV fluids were ordered this morning per primary medicine. PHYSICAL EXAM: VITAL SIGNS: Reviewed. GENERAL: Well-developed in no acute distress. NECK: Supple. No JVD or thyromegaly LUNGS: Respirations even and unlabored. Lungs diminished with rhonchi noted. HEART: Regular rate and rhythm. S1 and S2 heard. EXTREMITIES: Normal range of motion. No clubbing or cyanosis. Peripheral pulses intact. No lower extremity edema ASSESSMENT: Shortness of breath History of ovarian cancer with metastasis Bilateral pleural effusions with mediastinal lymphadenopathy and right upper lobe pulmonary nodule New onset paroxysmal atrial flutter with RVR, currently maintaining sinus mechanism History of malignant pericardial effusion, status post pericardial window Leukocytosis Hyponatremia PLAN: Continue current dose of metoprolol tartrate 12.5 mg twice a day Continue amiodarone 200 mg twice a day. Will decrease to once daily after 1 week. No plans for anticoagulation as patients CHADVASC score is 1 Currently stable from a cardiac standpoint Further recommendations pending patient's course Nurse practitioner note has been reviewed by physician. Signing provider agrees with the documented findings, assessment, and plan of care. Objective - Vital Signs Vital signs: Vital Signs Temp 97.6 F 11/09/22 08:26 Pulse 88 11/09/22 09:51 Resp 24 11/09/22 09:51 BP 99/58 11/09/22 08:26 Pulse Ox 94 L 11/09/22 09:28 FiO2 Intake & Output 11/08/22 11/09/22 11/09/22 18:59 06:59 18:59 Intake Total 760 200 418 Balance 760 200 418 Intake: IV 220 Oral 540 200 418 Other: Voiding Method Toilet Toilet Toilet # Voids 1 - Labs CBC & Chem 7: 11/09/22 07:35 11/09/22 07:35 Labs: Abnormal Lab Results - Last 24 Hours (Table) 11/08/22 11/08/22 11/08/22 Range/Units 12:04 16:29 20:04 WBC (3.8-10.6) k/uL RBC (3.80-5.40) m/uL Hgb (11.4-16.0) gm/dL Hct (34.0-46.0) % MCV (80.0-100.0) fL RDW (11.5-15.5) % Neutrophils # (1.3-7.7) k/uL Sodium (137-145) mmol/L Chloride (98-107) mmol/L BUN (7-17) mg/dL Glucose (74-99) mg/dL POC Glucose (mg/dL) 283 H 338 H 249 H (70-110) mg/dL Lactate Dehydrogenase (120-246) U/L Total Protein (6.3-8.2) g/dL Albumin (3.5-5.0) g/dL 11/09/22 11/09/22 11/09/22 Range/Units 05:56 07:35 07:35 WBC 18.4 H (3.8-10.6) k/uL RBC 3.30 L (3.80-5.40) m/uL Hgb 10.7 L (11.4-16.0) gm/dL Hct 33.0 L (34.0-46.0) % MCV 100.1 H (80.0-100.0) fL RDW 16.5 H (11.5-15.5) % Neutrophils # 15.1 H (1.3-7.7) k/uL Sodium 123 L (137-145) mmol/L Chloride 86 L (98-107) mmol/L BUN 24 H (7-17) mg/dL Glucose 139 H (74-99) mg/dL POC Glucose (mg/dL) 167 H (70-110) mg/dL Lactate Dehydrogenase (120-246) U/L Total Protein 5.8 L (6.3-8.2) g/dL Albumin 3.3 L (3.5-5.0) g/dL 11/09/22 Range/Units 07:35 WBC (3.8-10.6) k/uL RBC (3.80-5.40) m/uL Hgb (11.4-16.0) gm/dL Hct (34.0-46.0) % MCV (80.0-100.0) fL RDW (11.5-15.5) % Neutrophils # (1.3-7.7) k/uL Sodium (137-145) mmol/L Chloride (98-107) mmol/L BUN (7-17) mg/dL Glucose (74-99) mg/dL POC Glucose (mg/dL) (70-110) mg/dL Lactate Dehydrogenase 268 H (120-246) U/L Total Protein 5.9 L (6.3-8.2) g/dL Albumin (3.5-5.0) g/dL Microbiology - Last 24 Hours (Table) 11/08/22 11:00 Gram Stain - Preliminary Bronchial Washings - Random 11/08/22 11:00 Gram Stain - Preliminary Bronchial Washings - Right
[2022-11-09 11:46] LABS: Glucose,Whole Blood 247 mg/dL (70-110)
--- NOTE | 2022-11-09 13:10 | P.PN ---
Subjective Progress Note Date: 11/09/22 Principal diagnosis: Metastatic ovarian cancer to lungs 57-year-old female with a history of metastatic ovarian carcinoma, who was seen in the emergency department, on October 30, complaining of shortness of breath, difficulty breathing, cough, chest congestion, and occasional phlegm production. She states that when she weaned herself off the prednisone, her respiratory complaints became worse. I saw her in consultation, September of this year. The patient previously was thought to have pneumonitis, secondary to her chemotherapeutic agent. Currently, the patient is on 2 L of nasal oxygen, with saturations in the mid 90s. She does not appear to be particularly short of breath, does not have any conversational dyspnea, or use of accessory muscles. The patient was given breathing treatments, corticosteroids, and antibiotics. The patient's chest x-ray showed cardiomegaly, mild pulmonary vascular congestion. CT angiogram that was performed, was negative for pulmonary embol ism, showed small bilateral pleural effusions, as well as some upper abdominal lymphadenopathy, and a right middle lobe pulmonary nodule. White count is 8.1, hemoglobin 10, hematocrit 31.3, with a platelet count of 210,000. D-dimer was elevated at 1.85. Sodium 128, potassium 4.3, chlorides 96, CO2 22, BUN 9, creatinine 0.58. The rest of the comprehensive metabolic profile is essentially normal. On today's evaluation of 11/01/2022, the patient is feeling slightly better compared to yesterday. She remains on steroids. The exact cause for her shortness of breath and persistent cough is not clear. The patient is currently having difficulties in laying down flat because of shortness of breath. 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 The patient was originally diagnosed in 2008 has received multiple treatments, most recently on Zejula started in May 2022 after 7 cycles of Doxil/carboplatin in February 2022 with recent imaging in September 2022 revealing evidence of disease progression who presents for acute dyspnea. She was hospitalized from 10/04/2022 through 10/07/2022 for dyspnea at that time, which was thought to be related to pneumonia. She did discontinue Zejula 3 weeks prior to her admission. On discharge, she was placed on a steroid taper lasting approximately 15 days and did not have any respiratory issues during this time. After completing the steroid taper, she developed increased dyspnea with wheezing. I reviewed the CAT scans of the chest and I I think it'll be worthwhile for this patient to undergo a high- resolution CAT scan of the chest to assess for any parenchymal progression of tumor versus drug-induced pneumonitis and is same time I discussed with her the potential of that having a biopsy. She is receiving IV Solu-Medrol 60 mg every 6 hours for now. The patient's WBC count is at 15.7 with a hemoglobin 9.5. Sodium is at 127. The ends of 20 with a creatinine 0.8. LFTs are within normal limits. On today's evaluation of 11/02/2022, the patient is feeling much better compared to yesterday. Shortness of breath and cough is essentially improving. The patient underwent a HRCT of the chest yesterday and it showed a right upper lobe pulmonary nodule a reflect elevated previously metastatic nodule in addition to somebody some lymphadenopathy not well characterized on this study. The patient had bilateral pleural effusions and evidence of some limited subpleural groundglass pulmonary infiltrates. There is also evidence of bronchial wall thickening and mild bronchiectasis. As such, there is no significant airspace disease. No clear indication of parenchymal lung abnormalities to suggest parenchymal lung invasion with malignancy. No evidence of any active pneumonia at this point in time. The patient remains on IV Solu-Medrol. Blood sugar is elevated at 317. The patient is receiving IV Solu-Medrol and she is receiving 60 mg every 6 hours. She is on insulin by scale coverage. Cough is subsiding. On 11/03/2022, no new complaints and the patient is feeling progressively more improved while being on steroids. Cough and shortness of breath subsiding. The patient is on IV Solu-Medrol 60 mg every 6 hours. The patient is currently on room air oxygen with a pulse ox of 96% the blood work shows a WBC count of 13.4 with a hemoglobin of 10.7 and a platelet count of 278. BUN is at 29 with a creatinine of 0.8 his sodiums of 130. Glucose at 228. The blood cultures are essentially negative. 11/02/2022, seeing the patient for a follow-up. Overall condition is progressively improving. Less short of breath as bronchospastic and coughing has subsided significantly. The patient remains on IV Solu-Medrol. I'm going to go ahead and switch the patient to oral prednisone thousand 80 mg by mouth daily. She'll be also taken off the IV Lasix and switch to oral Lasix. No other new complaints otherwise for now. The WBC count is at 10 point with a hemoglobin of 10.7 and platelet count of 272. BUN is 28 with a creatinine of 0.8 and a sodium level is at 131. Blood sugars at 224. No other issues otherwise for now. The patient self reports that she is improving. No fever. No chills. No other complaints. On today's evaluation of 11/05/2022, patient is short of breath and physical remains on 2 L of oxygen by nasal cannula. She is quite uncomfortable. She remains on oral prednisone 80 mg by mouth daily. She is also on Lasix 40 mg by mouth daily. There is no interval worsening in oxygenation. Clinically, the patient is feeling worse. Chest x-ray findings of essentially stable. There is some lower lobe increased interstitial markings bilaterally. Some limited changes also in the upper lobes. WBC count 16, hemoglobin is at 10.7 and a platelet count is at 282. BUN is 26 with a creatinine of 0.9 and his sodium level is at 129. 11/06/2022, patient remains on 2 L of oxygen by nasal cannula. No new complaints. Sodium levels of 127 with patient's potassium levels at 3.4 with a BUN of 22 and a creatinine of 0.9. The the hemoglobin is at 10.8. No other new complaints otherwise for now. Having episodes of cough and this has subsided since yesterday. 11/07/2022, the patient remains on 2 L. His overall respiratory status is un changed and the patient is not having any interval worsening or improvement in her breathing. She continues to have cough especially with deep breathing. Sodium levels of 127. Furthermore, overnight, the patient went to a coughing spell and she went into atrial flutter flutter that lasted for a total of 1 hour and the patient converted into normal sinus rhythm following that. Cardiology has been consulted. The patient was started on amiodarone 200 mg by mouth twice a day and metoprolol 12.5 mg by mouth twice a day. Sodium is at 127, BUN is at 60 with a creatinine of 0.7 and a white cell count is at 14.3. Reevaluated today on 11/08/2022, patient continues to have intermittent episodes of cough, almost continuous, continues to have shortness of breath, I discussed her condition with Dr. Farfan earlier today, and recommended that we proceed with bronchoscopy this was done today, please refer to the full operative report, patient was found to have significant endobronchial tumor involving the right upper lobe, right lower lobe, and these were both almost nearly occluded there is also an endobronchial tumor in the right middle lobe, multiple biopsies were done. Findings were discussed with the . We will ask oncology to that the patient, may also involve radiation oncology labs today showed relatively normal CBC with beverage, 15.3 hemoglobin 10.4 sodium remains low at 124, patient may be developing a picture of SIADH. Reevaluated today on 11/09/2022, is at bedside, patient is doing better, continues to have intermittent cough and shortness of breath. Today I updated the patient on the findings noted on her last bronchoscopy from yesterday. Patient was found to have significant endobronchial pathology with right upper lobe completely occluded with endobronchial tumor, right lower lobe is also some totally occluded with extrinsic compression/tumor involving the right lower lobe bronchus and her right middle lobe was found to have a small endobronchial tumor in the medial wall of the medial segment of the right middle lobe. Clearly we are most likely dealing with metastatic ovarian cancer, biopsies have been taken and results of which are pending. In the meantime the patient seems to be developing worsening hyponatremia and I believe this is SIADH unless proven otherwise. Patient needs to be seen by oncology and possibly by radiation oncology for further input. Patient does usually follow-up with Dr. Thibodeaux/oncologist liz at [facility] in [place], and if it is felt by our oncologist the need to transfer the patient to her oncologist that would be appropriate. The overall picture does not look very promising. Objective - Vital Signs Vital signs: Vital Signs Temp 97.6 F 11/09/22 08:26 Pulse 88 11/09/22 11:44 Resp 24 11/09/22 09:51 BP 95/65 11/09/22 11:44 Pulse Ox 94 L 11/09/22 11:44 FiO2 Intake & Output 11/08/22 11/09/22 11/09/22 18:59 06:59 18:59 Intake Total 760 200 418 Balance 760 200 418 Intake: IV 220 Oral 540 200 418 Other: Voiding Method Toilet Toilet Toilet # Voids 1 - Exam Physical Exam: Revealed 57-year-old female in no distress on 2 L nasal cannula, O2 sats is 94% Head: Atraumatic, normocephalic. HEENT:[Neck is supple.] [No neck masses.] [No thyromegaly.] [No JVD.] Chest: Scattered rhonchi and wheezes noted bilaterally. Cardiac Exam: [Normal S1 and S2, no S3 gallop, no murmur.] Abdomen: [Soft, nontender, no megaly, no rebound, no guarding, normal bowel sounds.] Extremities: [No clubbing, no edema, no cyanosis.] Neurological Exam: [No focal neurologic deficit.] Alert oriented 3. Psychiatric: Normal mood affect and normal mental status examination. Skin: No rashes - Labs CBC & Chem 7: 11/09/22 07:35 11/09/22 07:35 Labs: Abnormal Lab Results - Last 24 Hours (Table) 11/08/22 11/08/22 11/09/22 Range/Units 16:29 20:04 05:56 WBC (3.8-10.6) k/uL RBC (3.80-5.40) m/uL Hgb (11.4-16.0) gm/dL Hct (34.0-46.0) % MCV (80.0-100.0) fL RDW (11.5-15.5) % Neutrophils # (1.3-7.7) k/uL Sodium (137-145) mmol/L Chloride (98-107) mmol/L BUN (7-17) mg/dL Glucose (74-99) mg/dL POC Glucose (mg/dL) 338 H 249 H 167 H (70-110) mg/dL Lactate Dehydrogenase (120-246) U/L Total Protein (6.3-8.2) g/dL Albumin (3.5-5.0) g/dL 11/09/22 11/09/22 11/09/22 Range/Units 07:35 07:35 07:35 WBC 18.4 H (3.8-10.6) k/uL RBC 3.30 L (3.80-5.40) m/uL Hgb 10.7 L (11.4-16.0) gm/dL Hct 33.0 L (34.0-46.0) % MCV 100.1 H (80.0-100.0) fL RDW 16.5 H (11.5-15.5) % Neutrophils # 15.1 H (1.3-7.7) k/uL Sodium 123 L (137-145) mmol/L Chloride 86 L (98-107) mmol/L BUN 24 H (7-17) mg/dL Glucose 139 H (74-99) mg/dL POC Glucose (mg/dL) (70-110) mg/dL Lactate Dehydrogenase 268 H (120-246) U/L Total Protein 5.8 L 5.9 L (6.3-8.2) g/dL Albumin 3.3 L (3.5-5.0) g/dL 11/09/22 Range/Units 11:41 WBC (3.8-10.6) k/uL RBC (3.80-5.40) m/uL Hgb (11.4-16.0) gm/dL Hct (34.0-46.0) % MCV (80.0-100.0) fL RDW (11.5-15.5) % Neutrophils # (1.3-7.7) k/uL Sodium (137-145) mmol/L Chloride (98-107) mmol/L BUN (7-17) mg/dL Glucose (74-99) mg/dL POC Glucose (mg/dL) 247 H (70-110) mg/dL Lactate Dehydrogenase (120-246) U/L Total Protein (6.3-8.2) g/dL Albumin (3.5-5.0) g/dL Microbiology - Last 24 Hours (Table) 11/08/22 11:00 Gram Stain - Preliminary Bronchial Washings - Random 11/08/22 11:00 Gram Stain - Preliminary Bronchial Washings - Right Assessment and Plan Assessment: Impression: Metastatic ovarian cancer with significant involvement of the right upper lobe and right middle lobe as well as right lower lobe Acute hypoxic respiratory failure secondary to above Diffuse thoracic adenopathy secondary to metastatic ovarian cancer History of malignant pericardial effusion requiring a pericardial window Paroxysmal atrial flutter 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 Pathology from endobronchial biopsies are pending For her hyponatremia the patient is to be on fluid restriction continue demeclocycline, nephrology to evaluate. Cultures from the left lower lobe are pending Continue present supportive care measures for now, Medical oncology and possibly radiation oncology to evaluate the patient again We will continue to follow Overall prognosis is poor Time with Patient: Less than 30
--- NOTE | 2022-11-09 13:17 | P.NPCON ---
History of Present Illness - Reason for Consult hyponatremia - History of Present Illness Patient is a 57-year-old female with history of metastatic ovarian cancer. Patient presented to the hospital with complaints of shortness of breath and acute hypoxic respiratory failure. Patient was noted to have pericardial effusion. Bronchoscopy performed on 11/08/2022 showed multiple tumors in the right lung wi th near occlusion of of the main bronchus. Sodium has been low most of the admission ranging between 128-1 24 mg/L. This morning it is at 123 and therefore nephrology is consulted. Patient has been on IV Lasix and was recently switched to oral Lasix. Patient reports that she has not been eating much. Blood pressure was low with systolic in the 90s today. Urine output not accurately charted. IV fluids to be started today. Review of Systems As per HPI Past Medical History Past Medical History: Cancer Additional Past Medical History / Comment(s): Hx ovarian cancer /2017 reoccurence ovarian cancer August 2021, recent CT that showed inflammation pressing on trachea, 90 days tapering steroid dose. Pericardial effusion History of Any Multi-Drug Resistant Organisms: None Reported Past Surgical History: Bowel Resection, Cholecystectomy, Hernia Repair, Hysterectomy Additional Past Surgical History / Comment(s): Pericardial window July 2022 Past Anesthesia/Blood Transfusion Reactions: No Reported Reaction Past Psychological History: No Psychological Hx Reported Smoking Status: Never smoker Past Alcohol Use History: None Reported Past Drug Use History: None Reported - Past Family History Father History Unknown: Yes Family Medical History: Hypertension, Myocardial Infarction ([place]) Mother Family Medical History: Diabetes Mellitus, Hypertension Medications and Allergies Home Medications Medication Instructions Recorded Confirmed Type Astragalus Root 2 cap PO Q3H 10/04/22 10/30/22 History Cetirizine HCl [Zyrtec] 10 mg PO HS 10/04/22 10/30/22 History Doterra [place] 2 cap PO HS 10/04/22 10/30/22 History Doterra On Guard 2 cap PO DAILY 10/04/22 10/30/22 History Famotidine 20 mg PO BID 10/04/22 10/30/22 History Fluticasone Nasal [place] [Flonase 1 spr EA NOSTRIL BID 10/04/22 10/30/22 History Nasal [place]] Magnesium Taurate 1 cap PO HS 10/04/22 10/30/22 History Formoterol Fumarate [Perforomist] 20 mcg INHALATION RT-BID ml 10/07/22 10/30/22 Rx Ipratropium-Albuterol Nebulize 3 ml INHALATION RT-QID each 10/07/22 10/30/22 Rx [Duoneb 0.5 mg-3 mg/3 ml Soln] Benzonatate [Tessalon Perle] 200 mg PO TID 10/30/22 10/30/22 History Budesonide [Pulmicort] 1 mg INHALATION RT-BID 10/30/22 10/30/22 History Docusate [Colace] 100 mg PO DAILY PRN 10/30/22 10/30/22 History predniSONE 10 mg PO DAILY 10/30/22 10/30/22 History predniSONE See Taper PO DAILY #183 tab 11/05/22 Rx Allergies Allergy/AdvReac Type Severity Reaction Status Date / Time carboplatin Allergy Anaphylaxis Verified 10/30/22 17:28 hydromorphone [From Dilaudid] AdvReac falls Verified 10/30/22 17:28 asleep hard to arouse Physical Exam Vitals: Vital Signs Temp Pulse Pulse Resp BP Pulse Ox 11/09/22 11:44 88 95/65 94 L 11/09/22 09:51 88 24 11/09/22 09:39 88 24 11/09/22 09:28 88 24 94 L 11/09/22 08:26 97.6 F 85 18 99/58 96 11/09/22 03:49 88 11/09/22 03:40 97 19 102/69 97 11/09/22 03:38 90 11/09/22 00:32 102 H 11/09/22 00:19 100 11/09/22 00:00 98 17 101/70 95 11/08/22 22:26 101 H 11/08/22 22:10 100 11/08/22 22:09 100 11/08/22 22:00 99 11/08/22 21:00 98.2 F 103 H 20 114/71 97 11/08/22 16:57 90 11/08/22 16:42 94 11/08/22 16:32 95 18 107/72 93 L 11/08/22 14:39 101 H 18 11/08/22 13:12 96 Intake and Output 11/08/22 11/09/22 11/09/22 22:59 06:59 14:59 Intake Total 540 200 418 Balance 540 200 418 Intake: Oral 540 200 418 Other: Voiding Method Toilet Toilet Toilet # Voids 1 Patient is awake, comfortable, in no acute distress Mildly short of breath Examination of the heart S1 and S2 Examination of the lungs decreased breath sounds at the bases with crackles heard on the left lung and much decreased breath sounds on the right lung. Abdomen is soft nontender Examination of the lower extremities shows trace edema mostly in the ankles OCCUPATIONAL THERAPIST ASSISTANT exam grossly intact Results - Lab Results Most recent lab results Calcium 8.7 mg/dL (8.4-10.2) 11/09/22 07:35 Magnesium 1.9 mg/dL (1.6-2.3) 11/06/22 07:46 11/09/22 07:35 11/09/22 07:35 Assessment and Plan Assessment: 1. Hyponatremia, currently euvolemic to mildly hypervolemic. High suspicion for underlying SIADH. Urine osmolality and urine sodium will be ordered. Patient will be started on normal saline in if her sodium worsens with saline this will confirm SIADH and patient will be started on tolvaptan. In the meantime patient is also encouraged to increase oral protein intake. 2. Metastatic ovarian cancer with metastases to the lungs and pericardial effusion, status post pericardial window 3. New onset paroxysmal atrial flutter now in sinus rhythm 4. Acute hypoxic respiratory failure associated with significant involvement of the right lung with tumor and near occlusion of the bronchus. Plan: And proceed with challenge with normal saline and repeat sodium in 4 hours. If serum sodium level worsens patient will be started on Samsca and IV fluids will be discontinued as this will confirm SIADH. Check urine sodium and urine osmolality Repeat sodium in 4 hours Patient is encouraged to increase oral protein intake. Thank you for the consultation. We will continue to follow the patient with you during her hospitalization
[2022-11-09] MEDS: HYDROCORTISONE SUCCINATE 100 MG/2 ML VIAL IV SCH ×2 (15:37→23:26)
--- NOTE | 2022-11-09 16:18 | P.PN ---
Subjective Progress Note Date: 11/09/22 This is a 57-year-old female patient of Dr. Aguilar who presented with concerns of increased dyspnea. Patient reports that she was having improvement since previous admission with updraft and prednisone treatment but starts developing increased wheezing and shortness breath increasing over the past few days. patient has extensive medical history including ovarian cancer which was diagnosed 14 years ago and has been maintained on chemo therapy. Additional medical history includes previous episode of pericardial effusion with pericardial window. Chest x-ray showing cardiomegaly with mild pulmonary vascular congestion correlate with BMP for congestive heart failure. COPD changes. Chest CTA completed showing no evidence of pulmonary embolism U small bilateral pleural effusions him a new small pericardial effusion new pulmonary vascular congestion and cardiomegaly correlate with serum BNP. This time patient will be admitted patient's BREATHING treatments, IV Lasix, Solu-Medrol. Pulmonary cardiology and oncology services will be consulted. On 11/01/2022 patient was seen and examined on the telemetry floor she is alert and oriented 3 in no apparent distress she reports improvement in her shortness of breath otherwise she denies any complaints there is no fever or chills no headache or dizziness no chest pain no palpitation no nausea or vomiting no abdominal pain no diarrhea no blood in the stools no burning with urination no frequency or urgency and no hematuria On 11/02/2022 patient was seen and examined on the telemetry floor she is reporting improvement in her shortness of breath, otherwise she denies any complaints there is no fever or chills no headache or dizziness no chest pain no palpitation she has occasional cough no nausea or vomiting no abdominal pain no diarrhea no blood in the stools no burning with urination no frequency or urgency no hematuria. On 11/03/2022 patient is alert and oriented 3. Patient continued to show improvement in regards to breathing. Discussed case with pulmonary team patient will continue IV steroids no plans for bronchoscopy at this time. Patient denies chest pain. Patient denies nausea vomiting or diarrhea. Patient denies any urinary frequency. On 11/04/2022 patient was seen and examined on the medical floor, she is alert and oriented 3 in no apparent distress there is no fever or chills no headache or dizziness no chest pain no shortness of breath no cough no nausea or vomiting no abdominal pain no diarrhea and no urinary symptoms. At this time patient is being switched to oral prednisone and oral Lasix, no plans per pulmonary for bronchoscopy this time, patient has not been yet cleared for discharge, will continue to follow closely. 11/05/2022 patient is alert and oriented 3. Patient having increasing shortness of breath and crackles today. Patient has been transitioned to by mouth prednisone will discuss case with pulmonary services for possible bronchoscopy. Patient remains on Lasix. Her vital signs as 7.6, heart rate 98, respiratory rate 20, blood pressure 126/64 95% on 2 L On 11/06/2022 patient was seen and examined on the telemetry floor she is alert and oriented 3 in no apparent distress, she is reporting some improvement in her shortness of breath since yesterday she is still having occasional cough there is no fever or chills no headache or dizziness no chest pain no nausea or vomiting no abdominal pain no diarrhea no blood in the stools no burning with urination no frequency or urgency and no hematuria. Plan per pulmonary is to continue with current management at this time and to proceed with bronchoscopy on Tuesday. On 11/07/2022 patient is alert and oriented 3. Patient reports improvement with shortness of breath. Plans for bronchoscopy tomorrow and patient also had an episode of atrial flutter cardiology services have been consulted. Heart rate has improved. This time patient denies chest pain. Patient denies nausea vomiting or diarrhea. Patient denies any urinary burning or frequency. On 11/08/2022 patient was seen and examined on the medical floor she is alert and oriented 3 in no apparent distress there is no fever or chills no headache or dizziness no chest pain, she is still complaining of shortness of breath and cough no nausea or vomiting no abdominal pain no diarrhea and no urinary symptoms On 11/09/2022 patient was seen and examined on the medical floor she is alert and oriented 3 in no apparent distress, she is complaining of muscle cramps and pain otherwise she denies any complaints there is no fever or chills no headache or dizziness no chest pain, she is still complaining of shortness of breath and cough no nausea or vomiting no abdominal pain no diarrhea and no urinary symptoms. [place] was added for pain, consultation was added for nephrology regarding hyponatremia. Objective - Vital Signs Vital signs: Vital Signs Temp 98.2 F 11/08/22 21:00 Pulse 88 11/09/22 03:49 Resp 19 11/09/22 03:40 BP 102/69 06/27/23 03:40 Pulse Ox 97 11/09/22 03:40 FiO2 Intake & Output 11/08/22 11/09/22 11/09/22 18:59 06:59 18:59 Intake Total 760 200 Balance 760 200 Intake: IV 220 Oral 540 200 Other: Voiding Method Toilet Toilet - Exam In general patient is alert and oriented x 3 in no distress HEENT head normocephalic and atraumatic Neck is supple no JVD no goiter no lymphadenopathy no carotid bruit Chest examination is clear to auscultation no crackles no wheezing Cardiac exam reveals regular heart sounds S1 and S2 no gallops no murmurs Abdomen is soft nontender no organomegaly with normal bowel sounds Extremity exam reveals no edema no cyanosis or clubbing Neurological examination reveals no gross focal deficits - Labs CBC & Chem 7: 11/09/22 07:35 11/09/22 07:35 Labs: Abnormal Lab Results - Last 24 Hours (Table) 11/08/22 11/08/22 11/08/22 Range/Units 06:41 06:41 12:04 WBC 15.3 H (3.8-10.6) k/uL RBC 3.28 L (3.80-5.40) m/uL Hgb 10.4 L (11.4-16.0) gm/dL Hct 32.5 L (34.0-46.0) % RDW 16.4 H (11.5-15.5) % Neutrophils # 12.2 H (1.3-7.7) k/uL Sodium 124 L (137-145) mmol/L Chloride 87 L (98-107) mmol/L Carbon Dioxide 32 H (22-30) mmol/L Glucose 137 H (74-99) mg/dL POC Glucose (mg/dL) 283 H (70-110) mg/dL Total Protein 5.7 L (6.3-8.2) g/dL Albumin 3.2 L (3.5-5.0) g/dL 11/08/22 11/08/22 11/09/22 Range/Units 16:29 20:04 05:56 WBC (3.8-10.6) k/uL RBC (3.80-5.40) m/uL Hgb (11.4-16.0) gm/dL Hct (34.0-46.0) % RDW (11.5-15.5) % Neutrophils # (1.3-7.7) k/uL Sodium (137-145) mmol/L Chloride (98-107) mmol/L Carbon Dioxide (22-30) mmol/L Glucose (74-99) mg/dL POC Glucose (mg/dL) 338 H 249 H 167 H (70-110) mg/dL Total Protein (6.3-8.2) g/dL Albumin (3.5-5.0) g/dL Assessment and Plan Assessment: 1. Acute on chronic hypoxic respiratory failure 2. Pericardial effusion on computed tomography scan of the chest 3. History of pericardial window 4. History of ovarian cancer with metastatic disease 5. Bronchospasms 6. History of oral thrush 7. Atrial flutter. Cardiology services consulted Pulmonary cardiology service is consulted Plans for bronchoscopy on 11/08/2022 Maintained on IV Lasix, IV steroids and DuoNeb breathing treatmen treatments.
[2022-11-09 16:47] LABS: Glucose,Whole Blood 266 mg/dL (70-110)
[2022-11-09 20:00] LABS: Glucose,Whole Blood 218 mg/dL (70-110)
[2022-11-09] MEDS ORDERED: TOLVAPTAN 15 MG TABLET PO ONE (20:00)
[2022-11-09] MEDS: ZYRTEC 10MG TABLET PO SCH (20:19)
--- NOTE | 2022-11-09 22:07 | P.PN ---
Subjective Progress Note Date: 11/09/22 -Noted to have persistent intermittent dyspnea -Underwent bronchoscopy on 11/08/2022 noting endobronchial lesions with near complete occlusion of the right upper lobe and extrinsic compression causing near occlusion of the right lower lobe. Occlusion of the right middle lobe was also noted -No acute events overnight -Noted to have intermittent dyspnea along with nonspecific myalgias in the lower extremities improved with [place] Objective - Vital Signs Vital signs: Vital Signs Temp 97.6 F 11/09/22 08:26 Pulse 90 11/09/22 21:37 Resp 18 11/09/22 16:35 BP 92/50 11/09/22 15:33 Pulse Ox 98 11/09/22 15:33 FiO2 Intake & Output 11/09/22 11/09/22 11/10/22 06:59 18:59 06:59 Intake Total 200 1298 240 Output Total 100 Balance 200 1198 240 Intake: Oral 200 1298 240 Output: Urine 100 Other: Voiding Method Toilet Toilet # Voids 1 - Constitutional General appearance: Present: cooperative, no acute distress - EENT Eyes: Absent: EOMI - Respiratory Respiratory: right: diminished (Most prominent in the right upper lung field), wheezing (Significant wheezing most prominent in right upper lung field) - Cardiovascular Rhythm: regular - Gastrointestinal General gastrointestinal: Present: soft. Absent: distended - Integumentary Integumentary: Present: pale. Absent: rash - Neurologic Neurologic: Present: CNII-XII intact. Absent: focal deficits - Labs CBC & Chem 7: 11/09/22 07:35 11/09/22 16:46 Labs: Abnormal Lab Results - Last 24 Hours (Table) 11/09/22 11/09/22 11/09/22 Range/Units 05:56 07:35 07:35 WBC 18.4 H (3.8-10.6) k/uL RBC 3.30 L (3.80-5.40) m/uL Hgb 10.7 L (11.4-16.0) gm/dL Hct 33.0 L (34.0-46.0) % MCV 100.1 H (80.0-100.0) fL RDW 16.5 H (11.5-15.5) % Neutrophils # 15.1 H (1.3-7.7) k/uL Sodium 123 L (137-145) mmol/L Chloride 86 L (98-107) mmol/L BUN 24 H (7-17) mg/dL Glucose 139 H (74-99) mg/dL POC Glucose (mg/dL) 167 H (70-110) mg/dL Lactate Dehydrogenase (120-246) U/L Total Protein 5.8 L (6.3-8.2) g/dL Albumin 3.3 L (3.5-5.0) g/dL 11/09/22 11/09/22 11/09/22 Range/Units 07:35 11:41 16:45 WBC (3.8-10.6) k/uL RBC (3.80-5.40) m/uL Hgb (11.4-16.0) gm/dL Hct (34.0-46.0) % MCV (80.0-100.0) fL RDW (11.5-15.5) % Neutrophils # (1.3-7.7) k/uL Sodium (137-145) mmol/L Chloride (98-107) mmol/L BUN (7-17) mg/dL Glucose (74-99) mg/dL POC Glucose (mg/dL) 247 H 266 H (70-110) mg/dL Lactate Dehydrogenase 268 H (120-246) U/L Total Protein 5.9 L (6.3-8.2) g/dL Albumin (3.5-5.0) g/dL 11/09/22 11/09/22 Range/Units 16:46 19:58 WBC (3.8-10.6) k/uL RBC (3.80-5.40) m/uL Hgb (11.4-16.0) gm/dL Hct (34.0-46.0) % MCV (80.0-100.0) fL RDW (11.5-15.5) % Neutrophils # (1.3-7.7) k/uL Sodium 121 L (137-145) mmol/L Chloride (98-107) mmol/L BUN (7-17) mg/dL Glucose (74-99) mg/dL POC Glucose (mg/dL) 218 H (70-110) mg/dL Lactate Dehydrogenase (120-246) U/L Total Protein (6.3-8.2) g/dL Albumin (3.5-5.0) g/dL Microbiology - Last 24 Hours (Table) 11/08/22 11:00 Gram Stain - Preliminary Bronchial Washings - Random 11/08/22 11:00 Gram Stain - Preliminary Bronchial Washings - Right Assessment and Plan (1) Primary malignant neoplasm of ovary with widespread metastatic disease Current Visit: Yes Status: Chronic Priority: Medium Code(s): C56.9 - MALIGNANT NEOPLASM OF UNSPECIFIED OVARY; C80.0 - DISSEMINATED MALIGNANT NEOPLASM, UNSPECIFIED SNOMED Code(s): 527036593 (2) Acute bronchospasm Current Visit: Yes Status: Acute Priority: High Code(s): J98.01 - ACUTE BRONCHOSPASM SNOMED Code(s): 47687617174504 (3) Macrocytic anemia Current Visit: Yes Status: Chronic Priority: Medium Code(s): D53.9 - NUTRITIONAL ANEMIA, UNSPECIFIED SNOMED Code(s): 05802926 Plan: Endobronchial lesions -Recurrent after completing prednisone taper from admit 10/07/2022 -CTA chest no PE or concerns for infectious process, she does have sm bilateral pleural effusions and small pericardial effusion. Reviewed Pulm assessment and recommendations. Due to worsening of breathing, pulmonology is speaking with cardiothoracic in regards to possible lung biopsy vs bronchoscopy -Repeat chest xray showed potential early developing infiltrates medial right upper lobe and at the bilateral peripheral lung bases -Developed persistent dyspnea despite adequate dose of steroids -Bronchoscopy on 11/08/2022 noted suspicious endobronchial lesions with near complete occlusion within the lumen of the main bronchus of the right upper lobe and extrinsic compression of the right lower lobe -Biopsies of the endobronchial lesions are pending -We discussed the results of bronchoscopy with Saloni, her , her daughter, and son-in-law -While another primary such as lung cannot be entirely excluded, these endobronchial lesions likely represent metastases from her known ovarian cancer -This is a relatively uncommon presentation of ovarian cancer, as endobronchial lesions are most typically either lung primary or metastatic breast cancer -Prior to development of these lesions, alternative systemic treatments were already being considered. As such, development of these lesions does not necessarily change the fact she will need an alternative systemic treatment as she did not tolerate niraparib -I believe she would have a more rapid response to palliative radiation therapy to the endobronchial lesions as opposed to systemic treatment -Radiation therapy to the endobronchial lesions could help improve her breathing, which was when her primary gynecologic oncologist Dr. Thibodeaux preferred before starting additional systemic treatment -We will discuss her case with radiation oncology Macrocytic anemia -Hgb near baseline, stable 10.7 -Macrocytosis likely due to Hx of chemotherapy -No nutritional deficiency anemias noted. TSH WNL -Transfuse if symptomatic or Hgb <7. Metastatic ovarian adenocarcinoma: -Follows with Dr. Thibodeaux and Dr. Cerda. -Completed 7 cycles of Doxil/carbo 03/06, maintenance [place] 05/2022-09/10/22 -Pericardial fluid and pericardium biopsy obtained 08/05, were positive for metastatic ovarian carcinoma, PET showed metastatic disease in July -Most recent findings of endobronchial lesions from bronchoscopy on 11/08/2022 are pending final biopsy results. These are likely secondary to metastatic ovarian cancer -Dr. Thibodeaux recommended optimizing her pulmonary function prior to proceeding with additional treatment -Follow-up with Dr. Thibodeaux originally scheduled for 11/12/2022 will likely need to be rescheduled
[2022-11-10] MEDS: IPRATROPIUM-ALBUTEROL 3 ML NEB INHALATION SCH ×6 (00:47→20:59)
[2022-11-10] MEDS ORDERED: FUROSEMIDE 10 MG/ML 2 ML VIAL IV ONE ×2 (01:02→13:45)
[2022-11-10 06:14] LABS: Glucose,Whole Blood 204 mg/dL (70-110)
[2022-11-10] MEDS: INSULIN ASPART (NovoLOG) 100 UNIT/ML VIAL SQ SCH ×4 (06:17→20:44)
[2022-11-10] MEDS: DOCUSATE 100 MG CAP PO PRN (06:21)
[2022-11-10 07:09] LABS: Anisocytosis Slight; Basophils % (A) 0 %; Eosinophils % (A) 0 %; HCT 33.1 % (34.0-46.0); HGB 10.6 gm/dL (11.4-16.0); Hypochromasia Slight; Lymphocytes # (A) 1.2 k/uL (1.0-4.8); Lymphocytes % (A) 7 %; MCH 31.8 pg (25.0-35.0); MCV 99.4 fL (80.0-100.0); Macrocytosis Slight; Mean Platelet Volume 7.5; Monocytes # (A) 0.5 k/uL (0-1.0); Monocytes % (A) 3 %; Neutrophils # (A) 14.7 k/uL (1.3-7.7); Neutrophils % (A) 89 %; Platelet Count 223 k/uL (150-450); Poikilocytosis Slight; RBC 3.33 m/uL (3.80-5.40); RDW 16.7 % (11.5-15.5); WBC 16.6 k/uL (3.8-10.6)
[2022-11-10 07:39] LABS: ALT 25 U/L (4-34); AST 21 U/L (14-36); African American GFR (CKD) 42 (>60 ml/min/1.73 sqM); Albumin 3.4 g/dL (3.5-5.0); Alkaline Phosphatase 94 U/L (38-126); Anion Gap 14 mmol/L; Blood Urea Nitrogen 41 mg/dL (7-17); Calcium 8.6 mg/dL (8.4-10.2); Carbon Dioxide 24 mmol/L (22-30); Chloride 85 mmol/L (98-107); Glucose 194 mg/dL (74-99); Non-African American GFR(CKD) 36 (>60 ml/min/1.73 sqM); Potassium 4.4 mmol/L (3.5-5.1); Sodium 123 mmol/L (137-145); Total Bilirubin 0.8 mg/dL (0.2-1.3)
[2022-11-10] MEDS: FAMOTIDINE 20 MG TAB PO SCH ×2 (08:37→20:43)
[2022-11-10] MEDS: BENZONATATE 100 MG CAP PO SCH ×3 (08:37→20:43)
[2022-11-10] MEDS: IBUPROFEN 400 MG TAB PO PRN ×2 (08:37→23:39)
[2022-11-10] MEDS: MAGNESIUM OXIDE 400 MG TAB PO SCH (08:37)
[2022-11-10] MEDS: FLUTICASONE 50MCG/SPRAY NASAL 16GM EA NOSTRIL SCH ×2 (08:37→20:44)
[2022-11-10] MEDS: AMIODARONE 200 MG TAB PO SCH ×2 (08:37→20:43)
[2022-11-10] MEDS: METOPROLOL TARTRATE 12.5 MG TAB PO SCH ×2 (08:37→20:43)
[2022-11-10] MEDS: HYDROCORTISONE SUCCINATE 100 MG/2 ML VIAL IV SCH ×3 (08:38→23:33)
[2022-11-10] MEDS: FLUCONAZOLE 150 MG TAB PO SCH (08:40)
[2022-11-10] MEDS: DEMECLOCYCLINE 150 MG TAB PO SCH ×2 (08:40→20:43)
[2022-11-10] MEDS: NYSTATIN 100,000 UNIT/ML SUSP 500,000 UNIT/5 ML CUP PO SCH ×4 (08:40→20:43)
[2022-11-10] MEDS: BUDESONIDE 1 MG/2 ML NEBU INHALATION SCH ×2 (09:11→20:59)
[2022-11-10] MEDS: FORMOTEROL FUMARATE 20 MCG/2 ML NEBU INHALATION SCH ×2 (09:11→20:59)
--- NOTE | 2022-11-10 10:14 | P.PN ---
Subjective Progress Note Date: 11/10/22 This is a 57-year-old female patient of Dr. Aguilar who presented with concerns of increased dyspnea. Patient reports that she was having improvement since previous admission with updraft and prednisone treatment but starts developing increased wheezing and shortness breath increasing over the past few days. patient has extensive medical history including ovarian cancer which was diagnosed 14 years ago and has been maintained on chemo therapy. Additional medical history includes previous episode of pericardial effusion with pericardial window. Chest x-ray showing cardiomegaly with mild pulmonary vascular congestion correlate with BMP for congestive heart failure. COPD changes. Chest CTA completed showing no evidence of pulmonary embolism U small bilateral pleural effusions him a new small pericardial effusion new pulmonary vascular congestion and cardiomegaly correlate with serum BNP. This time patient will be admitted patient's BREATHING treatments, IV Lasix, Solu-Medrol. Pulmonary cardiology and oncology services will be consulted. On 11/01/2022 patient was seen and examined on the telemetry floor she is alert and oriented 3 in no apparent distress she reports improvement in her shortness of breath otherwise she denies any complaints there is no fever or chills no headache or dizziness no chest pain no palpitation no nausea or vomiting no abdominal pain no diarrhea no blood in the stools no burning with urination no frequency or urgency and no hematuria On 11/02/2022 patient was seen and examined on the telemetry floor she is reporting improvement in her shortness of breath, otherwise she denies any complaints there is no fever or chills no headache or dizziness no chest pain no palpitation she has occasional cough no nausea or vomiting no abdominal pain no diarrhea no blood in the stools no burning with urination no frequency or urgency no hematuria. On 11/03/2022 patient is alert and oriented 3. Patient continued to show improvement in regards to breathing. Discussed case with pulmonary team patient will continue IV steroids no plans for bronchoscopy at this time. Patient denies chest pain. Patient denies nausea vomiting or diarrhea. Patient denies any urinary frequency. On 11/04/2022 patient was seen and examined on the medical floor, she is alert and oriented 3 in no apparent distress there is no fever or chills no headache or dizziness no chest pain no shortness of breath no cough no nausea or vomiting no abdominal pain no diarrhea and no urinary symptoms. At this time patient is being switched to oral prednisone and oral Lasix, no plans per pulmonary for bronchoscopy this time, patient has not been yet cleared for discharge, will continue to follow closely. 11/05/2022 patient is alert and oriented 3. Patient having increasing shortness of breath and crackles today. Patient has been transitioned to by mouth prednisone will discuss case with pulmonary services for possible bronchoscopy. Patient remains on Lasix. Her vital signs as 7.6, heart rate 98, respiratory rate 20, blood pressure 126/64 95% on 2 L On 11/06/2022 patient was seen and examined on the telemetry floor she is alert and oriented 3 in no apparent distress, she is reporting some improvement in her shortness of breath since yesterday she is still having occasional cough there is no fever or chills no headache or dizziness no chest pain no nausea or vomiting no abdominal pain no diarrhea no blood in the stools no burning with urination no frequency or urgency and no hematuria. Plan per pulmonary is to continue with current management at this time and to proceed with bronchoscopy on Tuesday. On 11/07/2022 patient is alert and oriented 3. Patient reports improvement with shortness of breath. Plans for bronchoscopy tomorrow and patient also had an episode of atrial flutter cardiology services have been consulted. Heart rate has improved. This time patient denies chest pain. Patient denies nausea vomiting or diarrhea. Patient denies any urinary burning or frequency. On 11/08/2022 patient was seen and examined on the medical floor she is alert and oriented 3 in no apparent distress there is no fever or chills no headache or dizziness no chest pain, she is still complaining of shortness of breath and cough no nausea or vomiting no abdominal pain no diarrhea and no urinary symptoms On 11/09/2022 patient was seen and examined on the medical floor she is alert and oriented 3 in no apparent distress, she is complaining of muscle cramps and pain otherwise she denies any complaints there is no fever or chills no headache or dizziness no chest pain, she is still complaining of shortness of breath and cough no nausea or vomiting no abdominal pain no diarrhea and no urinary symptoms. [place] was added for pain, consultation was added for nephrology regarding hyponatremia. On 11/10/2022 patient is alert and oriented 3. Patient having increased wheezing today. Per oncology arranging for possible inpatient palliative radiation to endobronchial bronchial lesions causing near-complete occlusion of the right upper lobe. Patient also being followed by nephrology services for hyponatremia sodium improving slightly to 122. at this time patient denies chest pain. Denies nausea vomiting or diarrhea. Patient denies any urinary burning or frequency. Objective - Vital Signs Vital signs: Vital Signs Temp 97.6 F 11/09/22 20:15 Pulse 91 11/10/22 09:37 Resp 16 11/10/22 08:30 BP 89/56 11/10/22 08:30 Pulse Ox 96 11/10/22 09:16 FiO2 Intake & Output 11/09/22 11/10/22 11/10/22 18:59 06:59 18:59 Intake Total 1298 540 Output Total 100 800 Balance 1198 540 -800 Weight 87.9 kg Intake: Oral 1298 540 Output: Urine 100 800 Other: Voiding Method Toilet Toilet Toilet # Voids 1 4 - Exam In general patient is alert and oriented x 3 in no distress HEENT head normocephalic and atraumatic Neck is supple no JVD no goiter no lymphadenopathy no carotid bruit Chest examination is clear to auscultation no crackles no wheezing Cardiac exam reveals regular heart sounds S1 and S2 no gallops no murmurs Abdomen is soft nontender no organomegaly with normal bowel sounds Extremity exam reveals no edema no cyanosis or clubbing Neurological examination reveals no gross focal deficits - Labs CBC & Chem 7: 11/10/22 06:42 11/10/22 06:42 Labs: Abnormal Lab Results - Last 24 Hours (Table) 11/09/22 11/09/22 11/09/22 Range/Units 07:35 11:41 16:45 WBC (3.8-10.6) k/uL RBC (3.80-5.40) m/uL Hgb (11.4-16.0) gm/dL Hct (34.0-46.0) % RDW (11.5-15.5) % Neutrophils # (1.3-7.7) k/uL Sodium (137-145) mmol/L Chloride (98-107) mmol/L BUN (7-17) mg/dL Creatinine (0.52-1.04) mg/dL Glucose (74-99) mg/dL POC Glucose (mg/dL) 247 H 266 H (70-110) mg/dL Lactate Dehydrogenase 268 H (120-246) U/L Total Protein 5.9 L (6.3-8.2) g/dL Albumin (3.5-5.0) g/dL 11/09/22 11/09/22 11/09/22 Range/Units 16:46 19:58 23:18 WBC (3.8-10.6) k/uL RBC (3.80-5.40) m/uL Hgb (11.4-16.0) gm/dL Hct (34.0-46.0) % RDW (11.5-15.5) % Neutrophils # (1.3-7.7) k/uL Sodium 121 L 119 L* (137-145) mmol/L Chloride (98-107) mmol/L BUN (7-17) mg/dL Creatinine (0.52-1.04) mg/dL Glucose (74-99) mg/dL POC Glucose (mg/dL) 218 H (70-110) mg/dL Lactate Dehydrogenase (120-246) U/L Total Protein (6.3-8.2) g/dL Albumin (3.5-5.0) g/dL 11/10/22 11/10/22 11/10/22 Range/Units 06:12 06:42 06:42 WBC 16.6 H (3.8-10.6) k/uL RBC 3.33 L (3.80-5.40) m/uL Hgb 10.6 L (11.4-16.0) gm/dL Hct 33.1 L (34.0-46.0) % RDW 16.7 H (11.5-15.5) % Neutrophils # 14.7 H (1.3-7.7) k/uL Sodium 123 L (137-145) mmol/L Chloride 85 L (98-107) mmol/L BUN 41 H (7-17) mg/dL Creatinine 1.58 H (0.52-1.04) mg/dL Glucose 194 H (74-99) mg/dL POC Glucose (mg/dL) 204 H (70-110) mg/dL Lactate Dehydrogenase (120-246) U/L Total Protein 6.0 L (6.3-8.2) g/dL Albumin 3.4 L (3.5-5.0) g/dL Microbiology - Last 24 Hours (Table) 11/08/22 11:00 Gram Stain - Preliminary Bronchial Washings - Random 11/08/22 11:00 Gram Stain - Preliminary Bronchial Washings - Right Assessment and Plan Assessment: 1. Acute on chronic hypoxic respiratory failure 2. Pericardial effusion on computed tomography scan of the chest 3. History of pericardial window 4. History of ovarian cancer with metastatic disease 5. Bronchospasms 6. History of oral thrush 7. Atrial flutter. Cardiology services consulted 8. Status post bronchoscopy on 11/08/2022 findings of new endobronchial lesions with near-complete occlusion of the right upper lobe 9. Hyponatremia per nephrology high suspicion for underlying SIADH. Pulmonary cardiology service is consulted s/p bronchoscopy on 11/08/2022 Maintained on IV Lasix, IV steroids and DuoNeb breathing treatmen treatments.
--- NOTE | 2022-11-10 11:39 | P.PN ---
Subjective Progress Note Date: 11/10/22 Principal diagnosis: Metastatic ovarian cancer to lungs 57-year-old female with a history of metastatic ovarian carcinoma, who was seen in the emergency department, on October 30, complaining of shortness of breath, difficulty breathing, cough, chest congestion, and occasional phlegm production. She states that when she weaned herself off the prednisone, her respiratory complaints became worse. I saw her in consultation, September of this year. The patient previously was thought to have pneumonitis, secondary to her chemotherapeutic agent. Currently, the patient is on 2 L of nasal oxygen, with saturations in the mid 90s. She does not appear to be particularly short of breath, does not have any conversational dyspnea, or use of accessory muscles. The patient was given breathing treatments, corticosteroids, and antibiotics. The patient's chest x-ray showed cardiomegaly, mild pulmonary vascular congestion. CT angiogram that was performed, was negative for pulmonary embol ism, showed small bilateral pleural effusions, as well as some upper abdominal lymphadenopathy, and a right middle lobe pulmonary nodule. White count is 8.1, hemoglobin 10, hematocrit 31.3, with a platelet count of 210,000. D-dimer was elevated at 1.85. Sodium 128, potassium 4.3, chlorides 96, CO2 22, BUN 9, creatinine 0.58. The rest of the comprehensive metabolic profile is essentially normal. On today's evaluation of 11/01/2022, the patient is feeling slightly better compared to yesterday. She remains on steroids. The exact cause for her shortness of breath and persistent cough is not clear. The patient is currently having difficulties in laying down flat because of shortness of breath. 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 The patient was originally diagnosed in 2008 has received multiple treatments, most recently on Zejula started in May 2022 after 7 cycles of Doxil/carboplatin in February 2022 with recent imaging in September 2022 revealing evidence of disease progression who presents for acute dyspnea. She was hospitalized from 10/04/2022 through 10/07/2022 for dyspnea at that time, which was thought to be related to pneumonia. She did discontinue Zejula 3 weeks prior to her admission. On discharge, she was placed on a steroid taper lasting approximately 15 days and did not have any respiratory issues during this time. After completing the steroid taper, she developed increased dyspnea with wheezing. I reviewed the CAT scans of the chest and I I think it'll be worthwhile for this patient to undergo a high- resolution CAT scan of the chest to assess for any parenchymal progression of tumor versus drug-induced pneumonitis and is same time I discussed with her the potential of that having a biopsy. She is receiving IV Solu-Medrol 60 mg every 6 hours for now. The patient's WBC count is at 15.7 with a hemoglobin 9.5. Sodium is at 127. The ends of 20 with a creatinine 0.8. LFTs are within normal limits. On today's evaluation of 11/02/2022, the patient is feeling much better compared to yesterday. Shortness of breath and cough is essentially improving. The patient underwent a HRCT of the chest yesterday and it showed a right upper lobe pulmonary nodule a reflect elevated previously metastatic nodule in addition to somebody some lymphadenopathy not well characterized on this study. The patient had bilateral pleural effusions and evidence of some limited subpleural groundglass pulmonary infiltrates. There is also evidence of bronchial wall thickening and mild bronchiectasis. As such, there is no significant airspace disease. No clear indication of parenchymal lung abnormalities to suggest parenchymal lung invasion with malignancy. No evidence of any active pneumonia at this point in time. The patient remains on IV Solu-Medrol. Blood sugar is elevated at 317. The patient is receiving IV Solu-Medrol and she is receiving 60 mg every 6 hours. She is on insulin by scale coverage. Cough is subsiding. On 11/03/2022, no new complaints and the patient is feeling progressively more improved while being on steroids. Cough and shortness of breath subsiding. The patient is on IV Solu-Medrol 60 mg every 6 hours. The patient is currently on room air oxygen with a pulse ox of 96% the blood work shows a WBC count of 13.4 with a hemoglobin of 10.7 and a platelet count of 278. BUN is at 29 with a creatinine of 0.8 his sodiums of 130. Glucose at 228. The blood cultures are essentially negative. 11/02/2022, seeing the patient for a follow-up. Overall condition is progressively improving. Less short of breath as bronchospastic and coughing has subsided significantly. The patient remains on IV Solu-Medrol. I'm going to go ahead and switch the patient to oral prednisone thousand 80 mg by mouth daily. She'll be also taken off the IV Lasix and switch to oral Lasix. No other new complaints otherwise for now. The WBC count is at 10 point with a hemoglobin of 10.7 and platelet count of 272. BUN is 28 with a creatinine of 0.8 and a sodium level is at 131. Blood sugars at 224. No other issues otherwise for now. The patient self reports that she is improving. No fever. No chills. No other complaints. On today's evaluation of 11/05/2022, patient is short of breath and physical remains on 2 L of oxygen by nasal cannula. She is quite uncomfortable. She remains on oral prednisone 80 mg by mouth daily. She is also on Lasix 40 mg by mouth daily. There is no interval worsening in oxygenation. Clinically, the patient is feeling worse. Chest x-ray findings of essentially stable. There is some lower lobe increased interstitial markings bilaterally. Some limited changes also in the upper lobes. WBC count 16, hemoglobin is at 10.7 and a platelet count is at 282. BUN is 26 with a creatinine of 0.9 and his sodium level is at 129. 11/06/2022, patient remains on 2 L of oxygen by nasal cannula. No new complaints. Sodium levels of 127 with patient's potassium levels at 3.4 with a BUN of 22 and a creatinine of 0.9. The the hemoglobin is at 10.8. No other new complaints otherwise for now. Having episodes of cough and this has subsided since yesterday. 11/07/2022, the patient remains on 2 L. His overall respiratory status is un changed and the patient is not having any interval worsening or improvement in her breathing. She continues to have cough especially with deep breathing. Sodium levels of 127. Furthermore, overnight, the patient went to a coughing spell and she went into atrial flutter flutter that lasted for a total of 1 hour and the patient converted into normal sinus rhythm following that. Cardiology has been consulted. The patient was started on amiodarone 200 mg by mouth twice a day and metoprolol 12.5 mg by mouth twice a day. Sodium is at 127, BUN is at 60 with a creatinine of 0.7 and a white cell count is at 14.3. Reevaluated today on 11/08/2022, patient continues to have intermittent episodes of cough, almost continuous, continues to have shortness of breath, I discussed her condition with Dr. Farfan earlier today, and recommended that we proceed with bronchoscopy this was done today, please refer to the full operative report, patient was found to have significant endobronchial tumor involving the right upper lobe, right lower lobe, and these were both almost nearly occluded there is also an endobronchial tumor in the right middle lobe, multiple biopsies were done. Findings were discussed with the . We will ask oncology to that the patient, may also involve radiation oncology labs today showed relatively normal CBC with beverage, 15.3 hemoglobin 10.4 sodium remains low at 124, patient may be developing a picture of SIADH. Reevaluated today on 11/09/2022, is at bedside, patient is doing better, continues to have intermittent cough and shortness of breath. Today I updated the patient on the findings noted on her last bronchoscopy from yesterday. Patient was found to have significant endobronchial pathology with right upper lobe completely occluded with endobronchial tumor, right lower lobe is also some totally occluded with extrinsic compression/tumor involving the right lower lobe bronchus and her right middle lobe was found to have a small endobronchial tumor in the medial wall of the medial segment of the right middle lobe. Clearly we are most likely dealing with metastatic ovarian cancer, biopsies have been taken and results of which are pending. In the meantime the patient seems to be developing worsening hyponatremia and I believe this is SIADH unless proven otherwise. Patient needs to be seen by oncology and possibly by radiation oncology for further input. Patient does usually follow-up with Dr. Thibodeaux/oncologist liz at [facility] in [place], and if it is felt by our oncologist the need to transfer the patient to her oncologist that would be appropriate. The overall picture does not look very promising. Reevaluated today on 11/10/02, patient is basically about the same. Continues to have cough shortness of breath, patient was seen by oncology, she was also seen by nephrology, and she is being treated for SIADH and hyponatremia. Overall no major change in the last few days, today I will recommend evaluation by radia ti oncology to determine whether radiation would be an option for her significant endobronchial disease involving the right upper lobe and right lower lobe as well as right middle lobe. Patient was seen by oncology and her condition is to be discussed between our oncologist and her main oncologist at [facility] in [place]/Dr. Thibodeaux. Objective - Vital Signs Vital signs: Vital Signs Temp 97.6 F 11/09/22 20:15 Pulse 82 11/10/22 11:28 Resp 19 11/10/22 11:28 BP 100/64 11/10/22 11:28 Pulse Ox 98 11/10/22 11:28 FiO2 Intake & Output 11/09/22 11/10/22 11/10/22 18:59 06:59 18:59 Intake Total 1298 540 Output Total 100 800 Balance 1198 540 -800 Weight 87.9 kg Intake: Oral 1298 540 Output: Urine 100 800 Other: Voiding Method Toilet Toilet Toilet # Voids 1 4 - Exam Physical Exam: Revealed 57-year-old female in no distress on 2 L nasal cannula, O2 sats is 98% Head: Atraumatic, normocephalic. HEENT:[Neck is supple.] [No neck masses.] [No thyromegaly.] [No JVD.] Chest: Scattered rhonchi and wheezes noted bilaterally. Cardiac Exam: [Normal S1 and S2, no S3 gallop, no murmur.] Abdomen: [Soft, nontender, no megaly, no rebound, no guarding, normal bowel sounds.] Extremities: [No clubbing, 2+ bipedal edema, no cyanosis.] Neurological Exam: [No focal neurologic deficit.] Alert oriented 3. Psychiatric: Normal mood affect and normal mental status examination. Skin: No rashes - Labs CBC & Chem 7: 11/10/22 06:42 11/10/22 06:42 Labs: Abnormal Lab Results - Last 24 Hours (Table) 11/09/22 11/09/22 11/09/22 Range/Units 11:41 16:45 16:46 WBC (3.8-10.6) k/uL RBC (3.80-5.40) m/uL Hgb (11.4-16.0) gm/dL Hct (34.0-46.0) % RDW (11.5-15.5) % Neutrophils # (1.3-7.7) k/uL Sodium 121 L (137-145) mmol/L Chloride (98-107) mmol/L BUN (7-17) mg/dL Creatinine (0.52-1.04) mg/dL Glucose (74-99) mg/dL POC Glucose (mg/dL) 247 H 266 H (70-110) mg/dL Total Protein (6.3-8.2) g/dL Albumin (3.5-5.0) g/dL 11/09/22 11/09/22 11/10/22 Range/Units 19:58 23:18 06:12 WBC (3.8-10.6) k/uL RBC (3.80-5.40) m/uL Hgb (11.4-16.0) gm/dL Hct (34.0-46.0) % RDW (11.5-15.5) % Neutrophils # (1.3-7.7) k/uL Sodium 119 L* (137-145) mmol/L Chloride (98-107) mmol/L BUN (7-17) mg/dL Creatinine (0.52-1.04) mg/dL Glucose (74-99) mg/dL POC Glucose (mg/dL) 218 H 204 H (70-110) mg/dL Total Protein (6.3-8.2) g/dL Albumin (3.5-5.0) g/dL 11/10/22 11/10/22 Range/Units 06:42 06:42 WBC 16.6 H (3.8-10.6) k/uL RBC 3.33 L (3.80-5.40) m/uL Hgb 10.6 L (11.4-16.0) gm/dL Hct 33.1 L (34.0-46.0) % RDW 16.7 H (11.5-15.5) % Neutrophils # 14.7 H (1.3-7.7) k/uL Sodium 123 L (137-145) mmol/L Chloride 85 L (98-107) mmol/L BUN 41 H (7-17) mg/dL Creatinine 1.58 H (0.52-1.04) mg/dL Glucose 194 H (74-99) mg/dL POC Glucose (mg/dL) (70-110) mg/dL Total Protein 6.0 L (6.3-8.2) g/dL Albumin 3.4 L (3.5-5.0) g/dL Microbiology - Last 24 Hours (Table) 11/08/22 11:00 Gram Stain - Preliminary Bronchial Washings - Random Bronchial Washings Culture - Preliminary Presumptive Staph aureus 11/08/22 11:00 Gram Stain - Preliminary Bronchial Washings - Right Assessment and Plan Assessment: Impression: Metastatic ovarian cancer with significant involvement of the right upper lobe and right middle lobe as well as right lower lobe Acute hypoxic respiratory failure secondary to above Diffuse thoracic adenopathy secondary to metastatic ovarian cancer 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 We will continue to follow Overall prognosis is poor Time with Patient: Less than 30
[2022-11-10 11:46] LABS: Glucose,Whole Blood 248 mg/dL (70-110)
[2022-11-10] MEDS: ALPRAZolam 0.25 MG TAB PO PRN (12:35)
--- NOTE | 2022-11-10 13:09 | P.PN ---
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 Patient has a history of ovarian cancer with metastasis. Patient was also found to have bilateral pleural effusions and mediastinal lymphadenopathy. Patient noted to have a right upper lobe pulmonary nodule. She is scheduled to undergo bronchoscopy today with pulmonary services. She denies chest pain or pressure. She reports mild shortness of breath. Telemetry reveals sinus mechanism. No further episodes of atrial flutter. Echocardiogram completed revealing ejection fraction 55-60% 11/09/2022 Patient examined this morning. She is sitting up in chair. Patient's family is present. Patient underwent bronchoscopy yesterday with pulmonary services. Patient reports feeling weak and tired this morning. She also reports having spasms throughout her body. She complains of back spasms when she coughs. Telemetry reveals sinus mechanism. Patient reports she has not been able to eat or drink much because of her thrush. She feels like she might be dehydrated. IV fluids were ordered this morning per primary medicine. 11/10/2022 Patient examined this morning. Patient denies chest pain or pressure. She currently denies shortness of breath. Telemetry reveals sinus mechanism. Vital signs are stable. PHYSICAL EXAM: VITAL SIGNS: Reviewed. GENERAL: Well-developed in no acute distress. NECK: Supple. No JVD or thyromegaly LUNGS: Respirations even and unlabored. Lungs diminished with rhonchi noted. HEART: Regular rate and rhythm. S1 and S2 heard. EXTREMITIES: Normal range of motion. No clubbing or cyanosis. Peripheral pulses intact. No lower extremity edema ASSESSMENT: Shortness of breath History of ovarian cancer with metastasis Bilateral pleural effusions with mediastinal lymphadenopathy and right upper lobe pulmonary nodule New onset paroxysmal atrial flutter with RVR, currently maintaining sinus mechanism History of malignant pericardial effusion, status post pericardial window Leukocytosis Hyponatremia PLAN: Continue current dose of metoprolol tartrate 12.5 mg twice a day Continue amiodarone 200 mg twice a day. Will decrease to once daily after 1 week. No plans for anticoagulation as patients CHADVASC score is 1 Currently stable from a cardiac standpoint We will sign off. Please reconsult if needed. Nurse practitioner note has been reviewed by physician. Signing provider agrees with the documented findings, assessment, and plan of care. Objective - Vital Signs Vital signs: Vital Signs Temp 97.6 F 11/09/22 20:15 Pulse 84 11/10/22 11:39 Resp 19 11/10/22 11:28 BP 100/64 11/10/22 11:28 Pulse Ox 98 11/10/22 11:28 FiO2 Intake & Output 11/09/22 11/10/22 11/10/22 18:59 06:59 18:59 Intake Total 1298 540 Output Total 100 800 Balance 1198 540 -800 Weight 87.9 kg Intake: Oral 1298 540 Output: Urine 100 800 Other: Voiding Method Toilet Toilet Toilet # Voids 1 4 - Labs CBC & Chem 7: 11/10/22 06:42 11/10/22 06:42 Labs: Abnormal Lab Results - Last 24 Hours (Table) 11/09/22 11/09/22 11/09/22 Range/Units 16:45 16:46 19:58 WBC (3.8-10.6) k/uL RBC (3.80-5.40) m/uL Hgb (11.4-16.0) gm/dL Hct (34.0-46.0) % RDW (11.5-15.5) % Neutrophils # (1.3-7.7) k/uL Sodium 121 L (137-145) mmol/L Chloride (98-107) mmol/L BUN (7-17) mg/dL Creatinine (0.52-1.04) mg/dL Glucose (74-99) mg/dL POC Glucose (mg/dL) 266 H 218 H (70-110) mg/dL Total Protein (6.3-8.2) g/dL Albumin (3.5-5.0) g/dL 11/09/22 11/10/22 11/10/22 Range/Units 23:18 06:12 06:42 WBC 16.6 H (3.8-10.6) k/uL RBC 3.33 L (3.80-5.40) m/uL Hgb 10.6 L (11.4-16.0) gm/dL Hct 33.1 L (34.0-46.0) % RDW 16.7 H (11.5-15.5) % Neutrophils # 14.7 H (1.3-7.7) k/uL Sodium 119 L* (137-145) mmol/L Chloride (98-107) mmol/L BUN (7-17) mg/dL Creatinine (0.52-1.04) mg/dL Glucose (74-99) mg/dL POC Glucose (mg/dL) 204 H (70-110) mg/dL Total Protein (6.3-8.2) g/dL Albumin (3.5-5.0) g/dL 11/10/22 11/10/22 Range/Units 06:42 11:44 WBC (3.8-10.6) k/uL RBC (3.80-5.40) m/uL Hgb (11.4-16.0) gm/dL Hct (34.0-46.0) % RDW (11.5-15.5) % Neutrophils # (1.3-7.7) k/uL Sodium 123 L (137-145) mmol/L Chloride 85 L (98-107) mmol/L BUN 41 H (7-17) mg/dL Creatinine 1.58 H (0.52-1.04) mg/dL Glucose 194 H (74-99) mg/dL POC Glucose (mg/dL) 248 H (70-110) mg/dL Total Protein 6.0 L (6.3-8.2) g/dL Albumin 3.4 L (3.5-5.0) g/dL Microbiology - Last 24 Hours (Table) 11/08/22 11:00 Gram Stain - Preliminary Bronchial Washings - Random Bronchial Washings Culture - Preliminary Presumptive Staph aureus
[2022-11-10 17:06] LABS: Glucose,Whole Blood 236 mg/dL (70-110)
--- NOTE | 2022-11-10 17:21 | P.CONS ---
History of Present Illness - Reason for Consult Consult date: 11/10/22 dyspnea Requesting physician: Kt Love - Chief Complaint dyspnea - History of Present Illness The patient is a 57-year-old female with a history of metastatic ovarian cancer, initially diagnosed in 2008. She has metastatic disease and has undergone several lines of chemotherapy. She most recently finished chemotherapy in February 2022, and subsequently underwent monotherapy with a PARP inhibitor. The patient has recently undergone a pericardial window in July 2022 secondary to malignant effusion. She unfortunately now presents with increased dyspnea, and findings of right-sided endobronchial tumor. The patient was initially hospitalized on October 30, 2022 secondary to increasing dyspnea. She underwent a CT of the chest, which revealed no evidence of pu lmonary embolism, however there were small bilateral pleural effusions as well as a small pericardial effusion. There was concern for underlying congestive heart failure. Abnormal adenopathy was appreciated within the mediastinum. The patient was treated with IV steroids and diuretics. She states that she did have significant improvement in her dyspnea, but recently this improvement has plateaued. She subsequently was taken to the OR for bronchoscopy on November 08. Findings included a large endobronchial tumor involving the right mainstem bronchus with near occlusion of the right upper lobe. There was also disease involving the right middle and right lower bronchi, again with partial occ lusion. Biopsies of these were performed, and we are currently awaiting pathology. At this time, the patient reports that she is still feeling short of breath, but is doing better at rest. She has been stable on 2 L of oxygen. She still becomes uncomfortable when lying flat, and is not able to do much activity before feeling dyspneic. She does feel increased chest pressure when trying to lie flat. Review of Systems Constitutional: Denies chills, Denies fever Ears, nose, mouth and throat: Denies headache Cardiovascular: Reports dyspnea on exertion Respiratory: Reports cough, Reports dyspnea, Reports home oxygen, Denies pain Gastrointestinal: Denies abdominal pain Musculoskeletal: bilateral: ankle swelling Integumentary: Denies rash Neurological: Denies aphasia, Denies ataxia Psychiatric: Denies anxiety Past Medical History Past Medical History: Cancer Additional Past Medical History / Comment(s): Hx ovarian cancer /2017 reoccurence ovarian cancer August 2021, recent CT that showed inflammation pressing on trachea, 90 days tapering steroid dose. Pericardial effusion History of Any Multi-Drug Resistant Organisms: None Reported Past Surgical History: Bowel Resection, Cholecystectomy, Hernia Repair, Hysterectomy Additional Past Surgical History / Comment(s): Pericardial window July 2022 Past Anesthesia/Blood Transfusion Reactions: No Reported Reaction Past Psychological History: No Psychological Hx Reported Smoking Status: Never smoker Past Alcohol Use History: None Reported Past Drug Use History: None Reported - Past Family History Father History Unknown: Yes Family Medical History: Hypertension, Myocardial Infarction (PR) Mother Family Medical History: Diabetes Mellitus, Hypertension Medications and Allergies Home Medications Medication Instructions Recorded Confirmed Type Astragalus Root 2 cap PO Q3H 10/04/22 10/30/22 History Cetirizine HCl [Zyrtec] 10 mg PO HS 10/04/22 10/30/22 History Doterra Copaiba 2 cap PO HS 10/04/22 10/30/22 History Doterra On Guard 2 cap PO DAILY 10/04/22 10/30/22 History Famotidine 20 mg PO BID 10/04/22 10/30/22 History Fluticasone Nasal [place] [Flonase 1 spr EA NOSTRIL BID 10/04/22 10/30/22 History Nasal [place]] Magnesium Taurate 1 cap PO HS 10/04/22 10/30/22 History Formoterol Fumarate [Perforomist] 20 mcg INHALATION RT-BID ml 10/07/22 10/30/22 Rx Ipratropium-Albuterol Nebulize 3 ml INHALATION RT-QID each 10/07/22 10/30/22 Rx [Duoneb 0.5 mg-3 mg/3 ml Soln] Benzonatate [Tessalon Perle] 200 mg PO TID 10/30/22 10/30/22 History Budesonide [Pulmicort] 1 mg INHALATION RT-BID 10/30/22 10/30/22 History Docusate [Colace] 100 mg PO DAILY PRN 10/30/22 10/30/22 History predniSONE 10 mg PO DAILY 10/30/22 10/30/22 History predniSONE See Taper PO DAILY #183 tab 11/05/22 Rx Allergies Allergy/AdvReac Type Severity Reaction Status Date / Time carboplatin Allergy Anaphylaxis Verified 10/30/22 17:28 hydromorphone [From Dilaudid] AdvReac falls Verified 10/30/22 17:28 asleep hard to arouse Physical Exam Vitals: Vital Signs Temp Pulse Pulse Resp BP Pulse Ox 11/10/22 16:10 86 86 18 103/69 95 11/10/22 15:57 86 11/10/22 11:39 84 11/10/22 11:28 82 19 100/64 98 11/10/22 11:27 82 11/10/22 09:37 91 11/10/22 09:28 86 11/10/22 09:16 96 11/10/22 09:15 86 11/10/22 08:30 94 16 89/56 99 11/10/22 04:40 92 11/10/22 04:28 92 11/10/22 04:00 82 17 89/50 100 11/10/22 01:08 92 11/10/22 00:48 88 11/10/22 00:00 86 18 90/55 95 11/09/22 21:59 92 11/09/22 21:37 90 11/09/22 21:26 90 11/09/22 20:15 97.6 F 91 19 100/63 95 Intake and Output 11/10/22 11/10/22 11/10/22 06:59 14:59 22:59 Intake Total 300 300 Output Total 900 Balance 300 -900 300 Intake: Oral 300 300 Output: Urine 900 Other: Voiding Method Toilet Toilet # Voids 4 Weight 87.9 kg - Constitutional General appearance: no acute distress - EENT Eyes: EOMI, PERRLA ENT: hearing grossly normal - Neck Neck: no lymphadenopathy - Respiratory Respiratory: bilateral: diminished - Cardiovascular Rhythm: regular - Gastrointestinal General gastrointestinal: no distended, no tenderness - Integumentary Integumentary: no calor - Neurologic Neurologic: CNII-XII intact - Musculoskeletal Musculoskeletal: no generalized weakness - Psychiatric Psychiatric: A&O x's 3, appropriate affect, intact judgment & insight Results CBC & Chem 7: 11/10/22 06:42 11/10/22 15:43 Labs: Abnormal Lab Results - Last 24 Hours (Table) 11/09/22 11/09/22 11/09/22 Range/Units 16:46 19:58 23:18 WBC (3.8-10.6) k/uL RBC (3.80-5.40) m/uL Hgb (11.4-16.0) gm/dL Hct (34.0-46.0) % RDW (11.5-15.5) % Neutrophils # (1.3-7.7) k/uL Sodium 121 L 119 L* (137-145) mmol/L Chloride (98-107) mmol/L BUN (7-17) mg/dL Creatinine (0.52-1.04) mg/dL Glucose (74-99) mg/dL POC Glucose (mg/dL) 218 H (70-110) mg/dL Total Protein (6.3-8.2) g/dL Albumin (3.5-5.0) g/dL 11/10/22 11/10/22 11/10/22 Range/Units 06:12 06:42 06:42 WBC 16.6 H (3.8-10.6) k/uL RBC 3.33 L (3.80-5.40) m/uL Hgb 10.6 L (11.4-16.0) gm/dL Hct 33.1 L (34.0-46.0) % RDW 16.7 H (11.5-15.5) % Neutrophils # 14.7 H (1.3-7.7) k/uL Sodium 123 L (137-145) mmol/L Chloride 85 L (98-107) mmol/L BUN 41 H (7-17) mg/dL Creatinine 1.58 H (0.52-1.04) mg/dL Glucose 194 H (74-99) mg/dL POC Glucose (mg/dL) 204 H (70-110) mg/dL Total Protein 6.0 L (6.3-8.2) g/dL Albumin 3.4 L (3.5-5.0) g/dL 11/10/22 11/10/22 Range/Units 11:44 15:43 WBC (3.8-10.6) k/uL RBC (3.80-5.40) m/uL Hgb (11.4-16.0) gm/dL Hct (34.0-46.0) % RDW (11.5-15.5) % Neutrophils # (1.3-7.7) k/uL Sodium 124 L (137-145) mmol/L Chloride (98-107) mmol/L BUN (7-17) mg/dL Creatinine (0.52-1.04) mg/dL Glucose (74-99) mg/dL POC Glucose (mg/dL) 248 H (70-110) mg/dL Total Protein (6.3-8.2) g/dL Albumin (3.5-5.0) g/dL Microbiology - Last 24 Hours (Table) 11/08/22 11:00 Gram Stain - Preliminary Bronchial Washings - Random Bronchial Washings Culture - Preliminary Presumptive Staph aureus CT scan - chest: report reviewed, image reviewed Assessment and Plan Assessment: The patient is a 57-year-old female with a history of metastatic ovarian cancer, initially diagnosed in 2008. She has metastatic disease and has undergone several lines of chemotherapy. She most recently finished chemotherapy in February 2022, and subsequently underwent monotherapy with a PARP inhibitor. The patient has recently undergone a pericardial window in July 2022 secondary to malignant effusion. She unfortunately now presents with increased dyspnea, and findings of right-sided endobronchial tumor. Plan: 1. Dyspnea - Likely multifactorial: The patient has endobronchial disease, ipsilateral effusion as well as underlying CHF. Although her pathology is not finalized, it is likely that her endobronchial disease is metastatic from her long-standing ovarian cancer. I discussed with the patient that we could consider a palliative course of radiotherapy to the right lung. I discussed that ovarian cancer is typically fairly radiosensitive, and that she may have improved dyspnea if we are able to open the airways. I explained that this would likely only involve 1 week of palliative radiation. As the patient has be en hospitalized for over one week, we would attempt to initiate her treatment urgently. She is agreeable to undergo CT simulation today. I discussed with the patient that she may experience fatigue, mild skin irritation, cough, and esophagitis from a palliative course of radiotherapy. I explained these should be relatively limited considering he will be using a palliative dose. The patient and her were agreeable to move forward with treatment. 2. Ovarian cancer: As detailed by medical oncology, the patient's disease appears to be progressing at this time. She no longer seems to be responding to a PARP inhibitor. She will likely need to reinitiate chemotherapy, and usually follows with Dr. Thibodeaux from [facility]. However, this will likely take some time as an outpatient. Time with Patient: Greater than 30
[2022-11-10] MEDS ORDERED: TOLVAPTAN 15 MG TABLET PO ONE (17:47)
--- NOTE | 2022-11-10 17:47 | P.PN ---
Subjective Patient is seen for f/u for hyponatremia. She was started on IVF yesterday and sodium dropped to 119 mEq/L Saline was discontinued and patient received 15mg of samsca last night. Also received 1 dose of IV lasix. No complaints this am. Sodium pending this morning. Urine osmolality was high at 535 Objective - Vital Signs Vital signs: Vital Signs Temp 97.6 F 11/09/22 20:15 Pulse 86 11/10/22 16:10 Resp 18 11/10/22 16:10 BP 103/69 11/10/22 16:10 Pulse Ox 95 11/10/22 16:10 FiO2 Intake & Output 11/09/22 11/10/22 11/10/22 18:59 06:59 18:59 Intake Total 1298 540 300 Output Total 100 1700 Balance 1198 540 -1400 Weight 87.9 kg Intake: Oral 1298 540 300 Output: Urine 100 1700 Other: Voiding Method Toilet Toilet Toilet # Voids 1 1 - Exam Awake , comfortable, no acute distress. Lungs show decreased breath sounds R> L CVS S1 and S2. Extremities show trace edema. ACCESS CONSULTANT exam is grossly intact. - Labs CBC & Chem 7: 11/10/22 06:42 11/10/22 15:43 Labs: Abnormal Lab Results - Last 24 Hours (Table) 11/09/22 11/09/22 11/09/22 Range/Units 16:46 19:58 23:18 WBC (3.8-10.6) k/uL RBC (3.80-5.40) m/uL Hgb (11.4-16.0) gm/dL Hct (34.0-46.0) % RDW (11.5-15.5) % Neutrophils # (1.3-7.7) k/uL Sodium 121 L 119 L* (137-145) mmol/L Chloride (98-107) mmol/L BUN (7-17) mg/dL Creatinine (0.52-1.04) mg/dL Glucose (74-99) mg/dL POC Glucose (mg/dL) 218 H (70-110) mg/dL Total Protein (6.3-8.2) g/dL Albumin (3.5-5.0) g/dL 11/10/22 11/10/22 11/10/22 Range/Units 06:12 06:42 06:42 WBC 16.6 H (3.8-10.6) k/uL RBC 3.33 L (3.80-5.40) m/uL Hgb 10.6 L (11.4-16.0) gm/dL Hct 33.1 L (34.0-46.0) % RDW 16.7 H (11.5-15.5) % Neutrophils # 14.7 H (1.3-7.7) k/uL Sodium 123 L (137-145) mmol/L Chloride 85 L (98-107) mmol/L BUN 41 H (7-17) mg/dL Creatinine 1.58 H (0.52-1.04) mg/dL Glucose 194 H (74-99) mg/dL POC Glucose (mg/dL) 204 H (70-110) mg/dL Total Protein 6.0 L (6.3-8.2) g/dL Albumin 3.4 L (3.5-5.0) g/dL 11/10/22 11/10/22 11/10/22 Range/Units 11:44 15:43 17:02 WBC (3.8-10.6) k/uL RBC (3.80-5.40) m/uL Hgb (11.4-16.0) gm/dL Hct (34.0-46.0) % RDW (11.5-15.5) % Neutrophils # (1.3-7.7) k/uL Sodium 124 L (137-145) mmol/L Chloride (98-107) mmol/L BUN (7-17) mg/dL Creatinine (0.52-1.04) mg/dL Glucose (74-99) mg/dL POC Glucose (mg/dL) 248 H 236 H (70-110) mg/dL Total Protein (6.3-8.2) g/dL Albumin (3.5-5.0) g/dL Microbiology - Last 24 Hours (Table) 11/08/22 11:00 Gram Stain - Preliminary Bronchial Washings - Random Bronchial Washings Culture - Preliminary Presumptive Staph aureus Assessment and Plan Assessment: 1. Hyponatremia, currently euvolemic to mildly hypervolemic. 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 Urine osmolality 535. IVF discontinued and s/p samsca 2. Metastatic ovarian cancer with metastases to the lungs and pericardial effusion, status post pericardial window 3. New onset paroxysmal atrial flutter now in sinus rhythm 4. Acute hypoxic respiratory failure associated with significant involvement of the right lung with tumor and near occlusion of the bronchus. Plan: Continue off of IVF. Repeat samsca based on repeat sodium from today. Encouraged increased oral intake, particularly protein. Maintain fluid restriction.
[2022-11-10 20:29] LABS: Glucose,Whole Blood 238 mg/dL (70-110)
[2022-11-10] MEDS: ZYRTEC 10MG TABLET PO SCH (20:44)
[2022-11-11] MEDS: IPRATROPIUM-ALBUTEROL 3 ML NEB INHALATION SCH ×6 (00:43→21:07)
[2022-11-11 06:08] LABS: Glucose,Whole Blood 245 mg/dL (70-110)
[2022-11-11] MEDS: DOCUSATE 100 MG CAP PO PRN (06:11)
[2022-11-11] MEDS: INSULIN ASPART (NovoLOG) 100 UNIT/ML VIAL SQ SCH ×4 (06:11→21:50)
[2022-11-11 08:29] LABS: Anisocytosis Slight; Basophils # (A) 0.1 k/uL (0-0.2); Basophils % (A) 1 %; Eosinophils % (A) 0 %; HCT 32.6 % (34.0-46.0); HGB 10.6 gm/dL (11.4-16.0); Hypochromasia Slight; Lymphocytes # (A) 1.2 k/uL (1.0-4.8); Lymphocytes % (A) 7 %; MCH 31.8 pg (25.0-35.0); MCHC 32.5 g/dL (31.0-37.0); MCV 97.9 fL (80.0-100.0); Macrocytosis Slight; Mean Platelet Volume 7.7; Monocytes # (A) 0.6 k/uL (0-1.0); Monocytes % (A) 3 %; Neutrophils # (A) 15.5 k/uL (1.3-7.7); Neutrophils % (A) 89 %; Platelet Count 260 k/uL (150-450); Poikilocytosis Slight; RBC 3.33 m/uL (3.80-5.40); RDW 16.8 % (11.5-15.5); WBC 17.5 k/uL (3.8-10.6)
[2022-11-11] MEDS: FORMOTEROL FUMARATE 20 MCG/2 ML NEBU INHALATION SCH ×2 (08:46→21:06)
[2022-11-11] MEDS: BUDESONIDE 1 MG/2 ML NEBU INHALATION SCH ×2 (08:47→21:07)
[2022-11-11 08:58] LABS: ALT 24 U/L (4-34); AST 23 U/L (14-36); African American GFR (CKD) 35 (>60 ml/min/1.73 sqM); Albumin 3.5 g/dL (3.5-5.0); Alkaline Phosphatase 92 U/L (38-126); Anion Gap 12 mmol/L; Blood Urea Nitrogen 53 mg/dL (7-17); Calcium 8.9 mg/dL (8.4-10.2); Carbon Dioxide 26 mmol/L (22-30); Chloride 88 mmol/L (98-107); Glucose 176 mg/dL (74-99); Non-African American GFR(CKD) 30 (>60 ml/min/1.73 sqM); Sodium 126 mmol/L (137-145); Total Bilirubin 0.7 mg/dL (0.2-1.3); Total Protein 6.2 g/dL (6.3-8.2)
--- NOTE | 2022-11-11 09:25 | P.PN ---
Subjective Progress Note Date: 11/11/22 This is a 57-year-old female patient of Dr. Aguilar who presented with concerns of increased dyspnea. Patient reports that she was having improvement since previous admission with updraft and prednisone treatment but starts developing increased wheezing and shortness breath increasing over the past few days. patient has extensive medical history including ovarian cancer which was diagnosed 14 years ago and has been maintained on chemo therapy. Additional medical history includes previous episode of pericardial effusion with pericardial window. Chest x-ray showing cardiomegaly with mild pulmonary vascular congestion correlate with BMP for congestive heart failure. COPD changes. Chest CTA completed showing no evidence of pulmonary embolism U small bilateral pleural effusions him a new small pericardial effusion new pulmonary vascular congestion and cardiomegaly correlate with serum BNP. This time patient will be admitted patient's BREATHING treatments, IV Lasix, Solu-Medrol. Pulmonary cardiology and oncology services will be consulted. On 11/01/2022 patient was seen and examined on the telemetry floor she is alert and oriented 3 in no apparent distress she reports improvement in her shortness of breath otherwise she denies any complaints there is no fever or chills no headache or dizziness no chest pain no palpitation no nausea or vomiting no abdominal pain no diarrhea no blood in the stools no burning with urination no frequency or urgency and no hematuria On 11/02/2022 patient was seen and examined on the telemetry floor she is reporting improvement in her shortness of breath, otherwise she denies any complaints there is no fever or chills no headache or dizziness no chest pain no palpitation she has occasional cough no nausea or vomiting no abdominal pain no diarrhea no blood in the stools no burning with urination no frequency or urgency no hematuria. On 11/03/2022 patient is alert and oriented 3. Patient continued to show improvement in regards to breathing. Discussed case with pulmonary team patient will continue IV steroids no plans for bronchoscopy at this time. Patient denies chest pain. Patient denies nausea vomiting or diarrhea. Patient denies any urinary frequency. On 11/04/2022 patient was seen and examined on the medical floor, she is alert and oriented 3 in no apparent distress there is no fever or chills no headache or dizziness no chest pain no shortness of breath no cough no nausea or vomiting no abdominal pain no diarrhea and no urinary symptoms. At this time patient is being switched to oral prednisone and oral Lasix, no plans per pulmonary for bronchoscopy this time, patient has not been yet cleared for discharge, will continue to follow closely. 11/05/2022 patient is alert and oriented 3. Patient having increasing shortness of breath and crackles today. Patient has been transitioned to by mouth prednisone will discuss case with pulmonary services for possible bronchoscopy. Patient remains on Lasix. Her vital signs as 7.6, heart rate 98, respiratory rate 20, blood pressure 126/64 95% on 2 L On 11/06/2022 patient was seen and examined on the telemetry floor she is alert and oriented 3 in no apparent distress, she is reporting some improvement in her shortness of breath since yesterday she is still having occasional cough there is no fever or chills no headache or dizziness no chest pain no nausea or vomiting no abdominal pain no diarrhea no blood in the stools no burning with urination no frequency or urgency and no hematuria. Plan per pulmonary is to continue with current management at this time and to proceed with bronchoscopy on Tuesday. On 11/07/2022 patient is alert and oriented 3. Patient reports improvement with shortness of breath. Plans for bronchoscopy tomorrow and patient also had an episode of atrial flutter cardiology services have been consulted. Heart rate has improved. This time patient denies chest pain. Patient denies nausea vomiting or diarrhea. Patient denies any urinary burning or frequency. On 11/08/2022 patient was seen and examined on the medical floor she is alert and oriented 3 in no apparent distress there is no fever or chills no headache or dizziness no chest pain, she is still complaining of shortness of breath and cough no nausea or vomiting no abdominal pain no diarrhea and no urinary symptoms On 11/09/2022 patient was seen and examined on the medical floor she is alert and oriented 3 in no apparent distress, she is complaining of muscle cramps and pain otherwise she denies any complaints there is no fever or chills no headache or dizziness no chest pain, she is still complaining of shortness of breath and cough no nausea or vomiting no abdominal pain no diarrhea and no urinary symptoms. [place] was added for pain, consultation was added for nephrology regarding hyponatremia. On 11/10/2022 patient is alert and oriented 3. Patient having increased wheezing today. Per oncology arranging for possible inpatient palliative radiation to endobronchial bronchial lesions causing near-complete occlusion of the right upper lobe. Patient also being followed by nephrology services for hyponatremia sodium improving slightly to 122. at this time patient denies chest pain. Denies nausea vomiting or diarrhea. Patient denies any urinary burning or frequency. On 11/11/2022 patient is alert and oriented 3. Plans for palliative radiation today and tomorrow for endobronchial lesions. This time patient remains with audible wheezing and shortness of breath. Patient denies chest pain. Patient denies nausea vomiting or diarrhea. Patient denies any urinary burning or frequency. Sodium 126. Objective - Vital Signs Vital signs: Vital Signs Temp 97.5 F L 11/10/22 20:20 Pulse 92 11/11/22 09:14 Resp 18 11/11/22 03:20 BP 91/64 11/11/22 03:20 Pulse Ox 97 11/11/22 08:51 FiO2 Intake & Output 11/10/22 11/11/22 11/11/22 18:59 06:59 18:59 Intake Total 600 500 120 Output Total 1700 1200 Balance -1100 -700 120 Weight 85.5 kg Intake: Oral 600 500 120 Output: Urine 1700 1200 Other: Voiding Method Toilet Toilet # Voids 1 - Exam In general patient is alert and oriented x 3 in no distress HEENT head normocephalic and atraumatic Neck is supple no JVD no goiter no lymphadenopathy no carotid bruit Chest examination is clear to auscultation no crackles no wheezing Cardiac exam reveals regular heart sounds S1 and S2 no gallops no murmurs Abdomen is soft nontender no organomegaly with normal bowel sounds Extremity exam reveals no edema no cyanosis or clubbing Neurological examination reveals no gross focal deficits - Labs CBC & Chem 7: 11/11/22 07:48 11/11/22 07:48 Labs: Abnormal Lab Results - Last 24 Hours (Table) 11/10/22 11/10/22 11/10/22 Range/Units 11:44 15:43 17:02 WBC (3.8-10.6) k/uL RBC (3.80-5.40) m/uL Hgb (11.4-16.0) gm/dL Hct (34.0-46.0) % RDW (11.5-15.5) % Neutrophils # (1.3-7.7) k/uL Sodium 124 L (137-145) mmol/L Chloride (98-107) mmol/L BUN (7-17) mg/dL Creatinine (0.52-1.04) mg/dL Glucose (74-99) mg/dL POC Glucose (mg/dL) 248 H 236 H (70-110) mg/dL Total Protein (6.3-8.2) g/dL 11/10/22 11/10/22 11/11/22 Range/Units 20:27 22:04 06:06 WBC (3.8-10.6) k/uL RBC (3.80-5.40) m/uL Hgb (11.4-16.0) gm/dL Hct (34.0-46.0) % RDW (11.5-15.5) % Neutrophils # (1.3-7.7) k/uL Sodium 125 L (137-145) mmol/L Chloride (98-107) mmol/L BUN (7-17) mg/dL Creatinine (0.52-1.04) mg/dL Glucose (74-99) mg/dL POC Glucose (mg/dL) 238 H 245 H (70-110) mg/dL Total Protein (6.3-8.2) g/dL 11/11/22 11/11/22 Range/Units 07:48 07:48 WBC 17.5 H (3.8-10.6) k/uL RBC 3.33 L (3.80-5.40) m/uL Hgb 10.6 L (11.4-16.0) gm/dL Hct 32.6 L (34.0-46.0) % RDW 16.8 H (11.5-15.5) % Neutrophils # 15.5 H (1.3-7.7) k/uL Sodium 126 L (137-145) mmol/L Chloride 88 L (98-107) mmol/L BUN 53 H (7-17) mg/dL Creatinine 1.84 H (0.52-1.04) mg/dL Glucose 176 H (74-99) mg/dL POC Glucose (mg/dL) (70-110) mg/dL Total Protein 6.2 L (6.3-8.2) g/dL Microbiology - Last 24 Hours (Table) 11/08/22 11:00 Gram Stain - Preliminary Bronchial Washings - Random Bronchial Washings Culture - Preliminary Presumptive Staph aureus Assessment and Plan Assessment: 1. Acute on chronic hypoxic respiratory failure 2. Pericardial effusion on computed tomography scan of the chest 3. History of pericardial window 4. History of ovarian cancer with metastatic disease 5. Bronchospasms 6. History of oral thrush 7. Atrial flutter. Cardiology services consulted 8. Status post bronchoscopy on 11/08/2022 findings of new endobronchial lesions with near-complete occlusion of the right upper lobe 9. Hyponatremia per nephrology high suspicion for underlying SIADH. Pulmonary cardiology service is consulted s/p bronchoscopy on 11/08/2022 Tentative plans for radiation to endobronchial lesions on 11/11/2022 and 11/12/2022 Maintained on IV Lasix, IV steroids and DuoNeb breathing treatmen treatments.
[2022-11-11] MEDS: ALPRAZolam 0.25 MG TAB PO PRN (10:02)
[2022-11-11] MEDS: FAMOTIDINE 20 MG TAB PO SCH (10:02)
[2022-11-11] MEDS: MAGNESIUM OXIDE 400 MG TAB PO SCH (10:02)
[2022-11-11] MEDS: BENZONATATE 100 MG CAP PO SCH ×3 (10:02→21:50)
[2022-11-11] MEDS: HYDROCORTISONE SUCCINATE 100 MG/2 ML VIAL IV SCH ×3 (10:03→21:51)
[2022-11-11] MEDS: NYSTATIN 100,000 UNIT/ML SUSP 500,000 UNIT/5 ML CUP PO SCH ×4 (10:03→21:53)
[2022-11-11] MEDS: METOPROLOL TARTRATE 12.5 MG TAB PO SCH ×2 (10:03→21:50)
[2022-11-11] MEDS: AMIODARONE 200 MG TAB PO SCH ×2 (10:03→21:50)
[2022-11-11] MEDS: FLUCONAZOLE 150 MG TAB PO SCH (10:04)
[2022-11-11] MEDS: FLUTICASONE 50MCG/SPRAY NASAL 16GM EA NOSTRIL SCH ×2 (10:04→21:53)
[2022-11-11] MEDS: DEMECLOCYCLINE 150 MG TAB PO SCH ×2 (10:04→22:58)
[2022-11-11] MEDS: guaiFENesin-DM 100-10MG/5ML 10 ML CUP PO PRN ×2 (10:55→18:12)
[2022-11-11] MEDS ORDERED: TOLVAPTAN 15 MG TABLET PO ONE (11:00)
--- NOTE | 2022-11-11 11:44 | US ---
EXAMINATION TYPE: US chest DATE OF EXAM: 11/11/2022 COMPARISON: 11/05/2022 radiographs CLINICAL INDICATION: Female, 57 years old with history of Markings for thoracentesis by pulmonary sta ff; TECHNIQUE: Targeted ultrasound of the posterior lower bilateral hemithoraces EXAM MEASUREMENTS: Right Pleural Effusion pocket size: 10.0 cm Right skin surface to fluid distance: 3.0 cm Left Pleural Effusion pocket size: 8.0 cm Left skin surface to fluid distance: 2.8 cm Right side marked for possible thoracentesis outside the dept. Left side marked for possible thoracentesis outside the dept. Pulmonologists are able to review the images in the patient?s EMR. IMPRESSIONS: Bilateral chest wall marked for thoracentesis.
[2022-11-11 11:47] LABS: Glucose,Whole Blood 256 mg/dL (70-110)
--- NOTE | 2022-11-11 12:01 | P.PN ---
Subjective Patient is seen for f/u for hyponatremia. Sodium had dropped with normal saline and therefore it has been discontinued. Status post Samila. Patient is also maintained on demeclocycline. Urine osmolality was high at 535 Sodium is 126 today. Serum creatinine has increased for the last couple of days. Patient has been on Motrin and blood pressure remains difficulty low. Objective - Vital Signs Vital signs: Vital Signs Temp 98.2 F 11/11/22 10:58 Pulse 96 11/11/22 10:58 Resp 20 11/11/22 10:58 BP 116/76 11/11/22 10:58 Pulse Ox 97 11/11/22 10:58 FiO2 Intake & Output 11/10/22 11/11/22 11/11/22 18:59 06:59 18:59 Intake Total 600 500 270 Output Total 1700 1200 Balance -1100 -700 270 Weight 85.5 kg Intake: Oral 600 500 270 Output: Urine 1700 1200 Other: Voiding Method Toilet Toilet # Voids 1 - Exam Awake , comfortable, no acute distress. Patient is currently on the commode Extremities show trace edema. DIE FORGER exam is grossly intact. - Labs CBC & Chem 7: 11/11/22 07:48 11/11/22 07:48 Labs: Abnormal Lab Results - Last 24 Hours (Table) 11/10/22 11/10/22 11/10/22 Range/Units 15:43 17:02 20:27 WBC (3.8-10.6) k/uL RBC (3.80-5.40) m/uL Hgb (11.4-16.0) gm/dL Hct (34.0-46.0) % RDW (11.5-15.5) % Neutrophils # (1.3-7.7) k/uL Sodium 124 L (137-145) mmol/L Chloride (98-107) mmol/L BUN (7-17) mg/dL Creatinine (0.52-1.04) mg/dL Glucose (74-99) mg/dL POC Glucose (mg/dL) 236 H 238 H (70-110) mg/dL Total Protein (6.3-8.2) g/dL 11/10/22 11/11/22 11/11/22 Range/Units 22:04 06:06 07:48 WBC 17.5 H (3.8-10.6) k/uL RBC 3.33 L (3.80-5.40) m/uL Hgb 10.6 L (11.4-16.0) gm/dL Hct 32.6 L (34.0-46.0) % RDW 16.8 H (11.5-15.5) % Neutrophils # 15.5 H (1.3-7.7) k/uL Sodium 125 L (137-145) mmol/L Chloride (98-107) mmol/L BUN (7-17) mg/dL Creatinine (0.52-1.04) mg/dL Glucose (74-99) mg/dL POC Glucose (mg/dL) 245 H (70-110) mg/dL Total Protein (6.3-8.2) g/dL 11/11/22 11/11/22 Range/Units 07:48 11:45 WBC (3.8-10.6) k/uL RBC (3.80-5.40) m/uL Hgb (11.4-16.0) gm/dL Hct (34.0-46.0) % RDW (11.5-15.5) % Neutrophils # (1.3-7.7) k/uL Sodium 126 L (137-145) mmol/L Chloride 88 L (98-107) mmol/L BUN 53 H (7-17) mg/dL Creatinine 1.84 H (0.52-1.04) mg/dL Glucose 176 H (74-99) mg/dL POC Glucose (mg/dL) 256 H (70-110) mg/dL Total Protein 6.2 L (6.3-8.2) g/dL Microbiology - Last 24 Hours (Table) 11/08/22 11:00 Gram Stain - Final Bronchial Washings - Right Bronchial Washings Culture - Final 11/08/22 11:00 Gram Stain - Preliminary Bronchial Washings - Random Bronchial Washings Culture - Preliminary Presumptive Staph aureus Assessment and Plan Assessment: 1. Hyponatremia, currently euvolemic to mildly hypervolemic. 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 Urine osmolality 535. IVF discontinued and s/p samsca. Patient is also maintained on demeclocycline. 2. Metastatic ovarian cancer with metastases to the lungs and pericardial effusion, status post pericardial window 3. New onset paroxysmal atrial flutter now in sinus rhythm 4. Acute hypoxic respiratory failure associated with significant involvement of the right lung with tumor and near occlusion of the bronchus. Significant right pleural effusion noted and there are plans for thoracentesis. 5. Acute kidney injury secondary to NSAIDs in the setting of hypotension Plan: KEVIN Lam Repeat samsca May continue demeclocycline as well Add midodrine if blood pressure remains low. Encouraged increased oral intake, particularly protein. Maintain fluid restriction.
--- NOTE | 2022-11-11 12:32 | P.PN ---
Subjective Progress Note Date: 11/11/22 Principal diagnosis: Metastatic ovarian cancer to lungs 57-year-old female with a history of metastatic ovarian carcinoma, who was seen in the emergency department, on October 30, complaining of shortness of breath, difficulty breathing, cough, chest congestion, and occasional phlegm production. She states that when she weaned herself off the prednisone, her respiratory complaints became worse. I saw her in consultation, September of this year. The patient previously was thought to have pneumonitis, secondary to her chemotherapeutic agent. Currently, the patient is on 2 L of nasal oxygen, with saturations in the mid 90s. She does not appear to be particularly short of breath, does not have any conversational dyspnea, or use of accessory muscles. The patient was given breathing treatments, corticosteroids, and antibiotics. The patient's chest x-ray showed cardiomegaly, mild pulmonary vascular congestion. CT angiogram that was performed, was negative for pulmonary embol ism, showed small bilateral pleural effusions, as well as some upper abdominal lymphadenopathy, and a right middle lobe pulmonary nodule. White count is 8.1, hemoglobin 10, hematocrit 31.3, with a platelet count of 210,000. D-dimer was elevated at 1.85. Sodium 128, potassium 4.3, chlorides 96, CO2 22, BUN 9, creatinine 0.58. The rest of the comprehensive metabolic profile is essentially normal. On today's evaluation of 11/01/2022, the patient is feeling slightly better compared to yesterday. She remains on steroids. The exact cause for her shortness of breath and persistent cough is not clear. The patient is currently having difficulties in laying down flat because of shortness of breath. 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 The patient was originally diagnosed in 2008 has received multiple treatments, most recently on Zejula started in May 2022 after 7 cycles of Doxil/carboplatin in February 2022 with recent imaging in September 2022 revealing evidence of disease progression who presents for acute dyspnea. She was hospitalized from 10/04/2022 through 10/07/2022 for dyspnea at that time, which was thought to be related to pneumonia. She did discontinue Zejula 3 weeks prior to her admission. On discharge, she was placed on a steroid taper lasting approximately 15 days and did not have any respiratory issues during this time. After completing the steroid taper, she developed increased dyspnea with wheezing. I reviewed the CAT scans of the chest and I I think it'll be worthwhile for this patient to undergo a high- resolution CAT scan of the chest to assess for any parenchymal progression of tumor versus drug-induced pneumonitis and is same time I discussed with her the potential of that having a biopsy. She is receiving IV Solu-Medrol 60 mg every 6 hours for now. The patient's WBC count is at 15.7 with a hemoglobin 9.5. Sodium is at 127. The ends of 20 with a creatinine 0.8. LFTs are within normal limits. On today's evaluation of 11/02/2022, the patient is feeling much better compared to yesterday. Shortness of breath and cough is essentially improving. The patient underwent a HRCT of the chest yesterday and it showed a right upper lobe pulmonary nodule a reflect elevated previously metastatic nodule in addition to somebody some lymphadenopathy not well characterized on this study. The patient had bilateral pleural effusions and evidence of some limited subpleural groundglass pulmonary infiltrates. There is also evidence of bronchial wall thickening and mild bronchiectasis. As such, there is no significant airspace disease. No clear indication of parenchymal lung abnormalities to suggest parenchymal lung invasion with malignancy. No evidence of any active pneumonia at this point in time. The patient remains on IV Solu-Medrol. Blood sugar is elevated at 317. The patient is receiving IV Solu-Medrol and she is receiving 60 mg every 6 hours. She is on insulin by scale coverage. Cough is subsiding. On 11/03/2022, no new complaints and the patient is feeling progressively more improved while being on steroids. Cough and shortness of breath subsiding. The patient is on IV Solu-Medrol 60 mg every 6 hours. The patient is currently on room air oxygen with a pulse ox of 96% the blood work shows a WBC count of 13.4 with a hemoglobin of 10.7 and a platelet count of 278. BUN is at 29 with a creatinine of 0.8 his sodiums of 130. Glucose at 228. The blood cultures are essentially negative. 11/02/2022, seeing the patient for a follow-up. Overall condition is progressively improving. Less short of breath as bronchospastic and coughing has subsided significantly. The patient remains on IV Solu-Medrol. I'm going to go ahead and switch the patient to oral prednisone thousand 80 mg by mouth daily. She'll be also taken off the IV Lasix and switch to oral Lasix. No other new complaints otherwise for now. The WBC count is at 10 point with a hemoglobin of 10.7 and platelet count of 272. BUN is 28 with a creatinine of 0.8 and a sodium level is at 131. Blood sugars at 224. No other issues otherwise for now. The patient self reports that she is improving. No fever. No chills. No other complaints. On today's evaluation of 11/05/2022, patient is short of breath and physical remains on 2 L of oxygen by nasal cannula. She is quite uncomfortable. She remains on oral prednisone 80 mg by mouth daily. She is also on Lasix 40 mg by mouth daily. There is no interval worsening in oxygenation. Clinically, the patient is feeling worse. Chest x-ray findings of essentially stable. There is some lower lobe increased interstitial markings bilaterally. Some limited changes also in the upper lobes. WBC count 16, hemoglobin is at 10.7 and a platelet count is at 282. BUN is 26 with a creatinine of 0.9 and his sodium level is at 129. 11/06/2022, patient remains on 2 L of oxygen by nasal cannula. No new complaints. Sodium levels of 127 with patient's potassium levels at 3.4 with a BUN of 22 and a creatinine of 0.9. The the hemoglobin is at 10.8. No other new complaints otherwise for now. Having episodes of cough and this has subsided since yesterday. 11/07/2022, the patient remains on 2 L. His overall respiratory status is un changed and the patient is not having any interval worsening or improvement in her breathing. She continues to have cough especially with deep breathing. Sodium levels of 127. Furthermore, overnight, the patient went to a coughing spell and she went into atrial flutter flutter that lasted for a total of 1 hour and the patient converted into normal sinus rhythm following that. Cardiology has been consulted. The patient was started on amiodarone 200 mg by mouth twice a day and metoprolol 12.5 mg by mouth twice a day. Sodium is at 127, BUN is at 60 with a creatinine of 0.7 and a white cell count is at 14.3. Reevaluated today on 11/08/2022, patient continues to have intermittent episodes of cough, almost continuous, continues to have shortness of breath, I discussed her condition with Dr. Farfan earlier today, and recommended that we proceed with bronchoscopy this was done today, please refer to the full operative report, patient was found to have significant endobronchial tumor involving the right upper lobe, right lower lobe, and these were both almost nearly occluded there is also an endobronchial tumor in the right middle lobe, multiple biopsies were done. Findings were discussed with the . We will ask oncology to that the patient, may also involve radiation oncology labs today showed relatively normal CBC with beverage, 15.3 hemoglobin 10.4 sodium remains low at 124, patient may be developing a picture of SIADH. Reevaluated today on 11/09/2022, is at bedside, patient is doing better, continues to have intermittent cough and shortness of breath. Today I updated the patient on the findings noted on her last bronchoscopy from yesterday. Patient was found to have significant endobronchial pathology with right upper lobe completely occluded with endobronchial tumor, right lower lobe is also some totally occluded with extrinsic compression/tumor involving the right lower lobe bronchus and her right middle lobe was found to have a small endobronchial tumor in the medial wall of the medial segment of the right middle lobe. Clearly we are most likely dealing with metastatic ovarian cancer, biopsies have been taken and results of which are pending. In the meantime the patient seems to be developing worsening hyponatremia and I believe this is SIADH unless proven otherwise. Patient needs to be seen by oncology and possibly by radiation oncology for further input. Patient does usually follow-up with Dr. Thibodeaux/oncologist liz at [facility] in [place], and if it is felt by our oncologist the need to transfer the patient to her oncologist that would be appropriate. The overall picture does not look very promising. Reevaluated today on 11/10/22, patient is basically about the same. Continues to have cough shortness of breath, patient was seen by oncology, she was also seen by nephrology, and she is being treated for SIADH and hyponatremia. Overall no major change in the last few days, today I will recommend evaluation by radia ti oncology to determine whether radiation would be an option for her significant endobronchial disease involving the right upper lobe and right lower lobe as well as right middle lobe. Patient was seen by oncology and her condition is to be discussed between our oncologist and her main oncologist at [facility] in [place]/Dr. Thibodeaux. Reevaluated today on 11/02/2022, patient is about the same, continues to have cough and shortness. Had a long discussion with Dr. Richey yesterday regarding case, and he is planning to radiation therapy. In the meantime he showed me the CT of the chest which was done prior, and the patient seems to be developing bilateral pleural effusions, right more so on the left, I would recommend an ultrasound of the chest today, and the fluid is large enough would proceed with a right-sided thoracentesis mostly for diagnostic and therapeutic purposes. WBC count today is 17.5 hemoglobin is 10.6 sodium is up to 126. BUN is 53 creatinine 1.84. Patient is on fluid restriction, she is also on tolvaptan and she remains on demeclocycline. Her hydrocortisone dose will be cut down to 50 mg every 8 hours Objective - Vital Signs Vital signs: Vital Signs Temp 98.2 F 11/11/22 10:58 Pulse 81 11/11/22 12:10 Resp 20 11/11/22 10:58 BP 116/76 11/11/22 10:58 Pulse Ox 97 11/11/22 10:58 FiO2 Intake & Output 11/10/22 11/11/22 11/11/22 18:59 06:59 18:59 Intake Total 600 500 270 Output Total 1700 1200 Balance -1100 -700 270 Weight 85.5 kg Intake: Oral 600 500 270 Output: Urine 1700 1200 Other: Voiding Method Toilet Toilet # Voids 1 - Exam Physical Exam: Revealed 57-year-old female in no distress on 3 L nasal cannula, O2 sats is 97% Head: Atraumatic, normocephalic. HEENT:[Neck is supple.] [No neck masses.] [No thyromegaly.] [No JVD.] Chest: Scattered rhonchi and wheezes noted bilaterally. Diminished breath sounds at the bases especially at the right base Cardiac Exam: [Normal S1 and S2, no S3 gallop, no murmur.] Abdomen: [Soft, nontender, no megaly, no rebound, no guarding, normal bowel sounds.] Extremities: [No clubbing, 2+ bipedal edema, no cyanosis.] Neurological Exam: [No focal neurologic deficit.] Alert oriented 3. Psychiatric: Normal mood affect and normal mental status examination. Skin: No rashes - Labs CBC & Chem 7: 11/11/22 07:48 11/11/22 07:48 Labs: Abnormal Lab Results - Last 24 Hours (Table) 11/10/22 11/10/22 11/10/22 Range/Units 15:43 17:02 20:27 WBC (3.8-10.6) k/uL RBC (3.80-5.40) m/uL Hgb (11.4-16.0) gm/dL Hct (34.0-46.0) % RDW (11.5-15.5) % Neutrophils # (1.3-7.7) k/uL Sodium 124 L (137-145) mmol/L Chloride (98-107) mmol/L BUN (7-17) mg/dL Creatinine (0.52-1.04) mg/dL Glucose (74-99) mg/dL POC Glucose (mg/dL) 236 H 238 H (70-110) mg/dL Total Protein (6.3-8.2) g/dL 11/10/22 11/11/22 11/11/22 Range/Units 22:04 06:06 07:48 WBC 17.5 H (3.8-10.6) k/uL RBC 3.33 L (3.80-5.40) m/uL Hgb 10.6 L (11.4-16.0) gm/dL Hct 32.6 L (34.0-46.0) % RDW 16.8 H (11.5-15.5) % Neutrophils # 15.5 H (1.3-7.7) k/uL Sodium 125 L (137-145) mmol/L Chloride (98-107) mmol/L BUN (7-17) mg/dL Creatinine (0.52-1.04) mg/dL Glucose (74-99) mg/dL POC Glucose (mg/dL) 245 H (70-110) mg/dL Total Protein (6.3-8.2) g/dL 11/11/22 11/11/22 Range/Units 07:48 11:45 WBC (3.8-10.6) k/uL RBC (3.80-5.40) m/uL Hgb (11.4-16.0) gm/dL Hct (34.0-46.0) % RDW (11.5-15.5) % Neutrophils # (1.3-7.7) k/uL Sodium 126 L (137-145) mmol/L Chloride 88 L (98-107) mmol/L BUN 53 H (7-17) mg/dL Creatinine 1.84 H (0.52-1.04) mg/dL Glucose 176 H (74-99) mg/dL POC Glucose (mg/dL) 256 H (70-110) mg/dL Total Protein 6.2 L (6.3-8.2) g/dL Microbiology - Last 24 Hours (Table) 11/08/22 11:00 Gram Stain - Final Bronchial Washings - Random Bronchial Washings Culture - Final Staphylococcus aureus 11/08/22 11:00 Gram Stain - Final Bronchial Washings - Right Bronchial Washings Culture - Final Assessment and Plan Assessment: Impression: Metastatic ovarian cancer with significant involvement of the right upper lobe and right middle lobe as well as right lower lobe Acute hypoxic respiratory failure secondary to above Diffuse thoracic adenopathy secondary to metastatic ovarian cancer 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 Recommendation: Discussed with radiation oncology and the plan is to start radiation treatment Awaiting pathology from endobronchial biopsy Continue fluid restriction for hyponatremia/SIADH continue treatment as per nephrology Considering her MSSA in the sputum will recommend antibiotics, cefazolin. Continue present supportive care measures for now, Reviewed the results of ultrasound, we'll recommend the right-sided thoracentesis. We will continue to follow Overall prognosis is poor Time with Patient: Less than 30
--- NOTE | 2022-11-11 14:30 | XR ---
EXAMINATION TYPE: XR chest 1V portable DATE OF EXAM: 11/11/2022 2:21 PM COMPARISON: CT 11/01/2022 TECHNIQUE: XR chest 1V portable Frontal view of the chest. CLINICAL INDICATION:Female, 57 years old with history of RT THORACENTESIS; FINDINGS: Lungs/Pleura: Decrease in right pleural effusion. No evidence of focal consolidation or pneumothorax. Blunting of the costophrenic angles is present. Right Upper lobe nodule not well appreciated on this radiograph. Pulmonary vascularity: Unremarkable. Heart/mediastinum: Cardiomediastinal silhouette is enlarged and stable. Musculoskeletal: No acute osseous pathology. IMPRESSION: 1. No evidence of pneumothorax. 2. Decrease in right pleural effusion. 3. Similar left basilar atelectasis changes. Improved reticular markings in the right lower lung. Ri ght upper lung remains with airspace opacities. Right upper lobe nodule is not well appreciated ihsan red to CT.
--- NOTE | 2022-11-11 15:48 | OP ---
OPERATIVE REPORT DATE OF SERVICE : PROCEDURE PERFORMED: Right-sided thoracentesis. PREOPERATIVE DIAGNOSIS: Right-sided pleural effusion. POSTOPERATIVE DIAGNOSIS: Right-sided pleural effusion. ANESTHESIA USED: 4 mL of 1% lidocaine. DESCRIPTION OF PROCEDURE: The patient was placed in the sitting upright position, and the area below the right scapula was prepared in a sterile fashion, and drapes were applied. The area was earlier localized by ultrasound, and at the same site, the area was locally anesthetized with lidocaine, which was basically at the level of the 8th intercostal space and tip of the scapula. Then, the pleural space was entered, and the fluid was localized using a 26-gauge needle. After the fluid was localized, a standard thoracentesis catheter and needle were used, advanced at the same site into the pleural space, fluid was localized, and then the catheter was advanced over the needle into the pleural space, and the needle was pulled out of the pleural space. Freely flowing fluid, serosanguineous, was drained. Roughly 1000 mL of serosanguineous fluid was removed from the right pleural space. Fluid was sent for different diagnostic studies. The procedure was well tolerated. Followup chest x-ray showed no complications. MMODL / IJN: [id number] /
--- NOTE | 2022-11-11 16:26 | P.PN ---
Subjective Progress Note Date: 11/11/22 Principal diagnosis: Shortness of breath, difficulty breathing. Metastatic ovarian carcinoma. In follow-up today patient Remains on O2, respirations are mildly labored at rest, slightly worse with activity, she is only able to ambulate short distances. She denies fevers, nausea, vomiting, chest pain, abdominal pain, acute changes in bowel or bladder habits. Objective - Vital Signs Vital signs: Vital Signs Temp 98.2 F 11/11/22 10:58 Pulse 81 11/11/22 12:10 Resp 20 11/11/22 10:58 BP 116/76 11/11/22 10:58 Pulse Ox 97 11/11/22 10:58 FiO2 Intake & Output 11/10/22 11/11/22 11/11/22 18:59 06:59 18:59 Intake Total 600 500 585 Output Total 1700 1200 Balance -1100 -700 585 Weight 85.5 kg Intake: Oral 600 500 585 Output: Urine 1700 1200 Other: Voiding Method Toilet Toilet # Voids 1 - Constitutional General appearance: Present: average body habitus, cooperative, no acute distre ss - EENT Eyes: Present: anicteric sclerae, EOMI ENT: Present: hearing grossly normal - Respiratory Details: Mildly labored respirations at rest, O2 at 3 L - Neurologic Neurologic: Present: CNII-XII intact (Grossly) - Musculoskeletal Musculoskeletal: Present: strength equal bilaterally - Psychiatric Psychiatric: Present: A&O x's 3, appropriate affect, intact judgment & insight - Labs CBC & Chem 7: 11/11/22 07:48 11/11/22 07:48 Labs: Abnormal Lab Results - Last 24 Hours (Table) 11/10/22 11/10/22 11/10/22 Range/Units 15:43 17:02 20:27 WBC (3.8-10.6) k/uL RBC (3.80-5.40) m/uL Hgb (11.4-16.0) gm/dL Hct (34.0-46.0) % RDW (11.5-15.5) % Neutrophils # (1.3-7.7) k/uL Sodium 124 L (137-145) mmol/L Chloride (98-107) mmol/L BUN (7-17) mg/dL Creatinine (0.52-1.04) mg/dL Glucose (74-99) mg/dL POC Glucose (mg/dL) 236 H 238 H (70-110) mg/dL Total Protein (6.3-8.2) g/dL 11/10/22 11/11/22 11/11/22 Range/Units 22:04 06:06 07:48 WBC 17.5 H (3.8-10.6) k/uL RBC 3.33 L (3.80-5.40) m/uL Hgb 10.6 L (11.4-16.0) gm/dL Hct 32.6 L (34.0-46.0) % RDW 16.8 H (11.5-15.5) % Neutrophils # 15.5 H (1.3-7.7) k/uL Sodium 125 L (137-145) mmol/L Chloride (98-107) mmol/L BUN (7-17) mg/dL Creatinine (0.52-1.04) mg/dL Glucose (74-99) mg/dL POC Glucose (mg/dL) 245 H (70-110) mg/dL Total Protein (6.3-8.2) g/dL 11/11/22 11/11/22 Range/Units 07:48 11:45 WBC (3.8-10.6) k/uL RBC (3.80-5.40) m/uL Hgb (11.4-16.0) gm/dL Hct (34.0-46.0) % RDW (11.5-15.5) % Neutrophils # (1.3-7.7) k/uL Sodium 126 L (137-145) mmol/L Chloride 88 L (98-107) mmol/L BUN 53 H (7-17) mg/dL Creatinine 1.84 H (0.52-1.04) mg/dL Glucose 176 H (74-99) mg/dL POC Glucose (mg/dL) 256 H (70-110) mg/dL Total Protein 6.2 L (6.3-8.2) g/dL Microbiology - Last 24 Hours (Table) 11/08/22 11:00 Gram Stain - Final Bronchial Washings - Random Bronchial Washings Culture - Final Staphylococcus aureus 11/08/22 11:00 Gram Stain - Final Bronchial Washings - Right Bronchial Washings Culture - Final - Imaging and Cardiology Chest x-ray: report reviewed Assessment and Plan (1) Acute bronchospasm Current Visit: Yes Status: Acute Priority: High Code(s): J98.01 - ACUTE BRONCHOSPASM SNOMED Code(s): 65044340912630 (2) Primary malignant neoplasm of ovary with widespread metastatic disease Current Visit: Yes Status: Chronic Priority: Medium Code(s): C56.9 - MALIGNANT NEOPLASM OF UNSPECIFIED OVARY; C80.0 - DISSEMINATED MALIGNANT NEOPLASM, UNSPECIFIED SNOMED Code(s): 012878611 Plan: Wheezing, dyspnea -Bronch revealing endobronchial lesion, Pending biopsy results -Radiation Oncology evaluation. Plans for palliative radiation to endobronchial lesions for symptoms. -When patient was being simulated for radiation, significant right pleural effusion noted, worse since last week's imaging. Pulmonary is assessing patient for thoracentesis -O2 continuous Anemia -2/2 Treatment -Patient off treatment for 8 weeks -Hgb 10.6 today Hyponatremia -SIADH from malignancy -Nephrology has been following. -Demeclocycline ordered, Sodium 126 today -Small increase in creatinine today, 1.8 Metastatic ovarian adenocarcinoma: -Follows with Dr. Thibodeaux and Dr. Cerda. -Completed 7 cycles of Doxil/carbo 03/06, on maintenance Zejula 05/2022-09/10/22 -Pericardial fluid and pericardium biopsy obtained 08/05, were positive for metastatic ovarian carcinoma, PET showed metastatic disease in July. -Dr. Thibodeaux recommended optimizing her pulmonary function prior to proceeding with additional treatment. -F/U Dr. Thibodeaux once discharged -Notes, imaging, being faxed to Dr. Thibodeaux
[2022-11-11] MEDS: MIDODRINE 5 MG TAB PO SCH ×2 (16:44→16:57)
--- NOTE | 2022-11-11 16:59 | P.PN ---
Progress Note - Text Progress Note Date: 11/11/22 Dr Romano group will be covering for me starting October at 8:00 am
[2022-11-11 17:06] LABS: Glucose,Whole Blood 246 mg/dL (70-110)
[2022-11-11 21:41] LABS: Glucose,Whole Blood 200 mg/dL (70-110)
[2022-11-11] MEDS: ZYRTEC 10MG TABLET PO SCH (21:53)
[2022-11-11 22:09] LABS: Appearance,BF Bloody (Clear)
[2022-11-12 00:11] LABS: Glucose, BF Source Pleural fluid; Glucose, Body Fluid 196 mg/dL; LDH, Body Fluid Source Pleural fluid; T. Protein, Body Fluid Source Pleural fluid; Total Protein, Body Fluid 3040 mg/dL
[2022-11-12] MEDS: IPRATROPIUM-ALBUTEROL 3 ML NEB INHALATION SCH ×7 (00:23→21:22)
[2022-11-12 06:00] LABS: Glucose,Whole Blood 182 mg/dL (70-110)
[2022-11-12 07:44] LABS: Anisocytosis Slight; Basophils % (A) 0 %; Eosinophils # (A) 0.1 k/uL (0-0.7); Eosinophils % (A) 1 %; HCT 33.5 % (34.0-46.0); HGB 10.9 gm/dL (11.4-16.0); Hypochromasia Moderate; Lymphocytes # (A) 1.4 k/uL (1.0-4.8); Lymphocytes % (A) 9 %; MCH 33.1 pg (25.0-35.0); MCHC 32.5 g/dL (31.0-37.0); MCV 101.8 fL (80.0-100.0); Macrocytosis Slight; Mean Platelet Volume 7.1; Monocytes # (A) 0.6 k/uL (0-1.0); Monocytes % (A) 4 %; Neutrophils # (A) 13.1 k/uL (1.3-7.7); Neutrophils % (A) 86 %; Platelet Count 251 k/uL (150-450); RDW 16.9 % (11.5-15.5); WBC 15.3 k/uL (3.8-10.6)
[2022-11-12 08:13] LABS: ALT 23 U/L (4-34); AST 25 U/L (14-36); African American GFR (CKD) 46 (>60 ml/min/1.73 sqM); Albumin 3.5 g/dL (3.5-5.0); Alkaline Phosphatase 100 U/L (38-126); Anion Gap 8 mmol/L; Blood Urea Nitrogen 48 mg/dL (7-17); Calcium 8.8 mg/dL (8.4-10.2); Carbon Dioxide 31 mmol/L (22-30); Chloride 91 mmol/L (98-107); Glucose 170 mg/dL (74-99); Magnesium 2.2 mg/dL (1.6-2.3); Non-African American GFR(CKD) 40 (>60 ml/min/1.73 sqM); Sodium 130 mmol/L (137-145); Total Bilirubin 0.6 mg/dL (0.2-1.3)
[2022-11-12] MEDS: HYDROCORTISONE SUCCINATE 100 MG/2 ML VIAL IV SCH ×2 (08:17→16:14)
[2022-11-12] MEDS: FLUCONAZOLE 150 MG TAB PO SCH (08:18)
[2022-11-12] MEDS: DEMECLOCYCLINE 150 MG TAB PO SCH ×2 (08:18→20:50)
[2022-11-12] MEDS: MAGNESIUM OXIDE 400 MG TAB PO SCH (08:19)
[2022-11-12] MEDS: AMIODARONE 200 MG TAB PO SCH ×2 (08:19→20:50)
[2022-11-12] MEDS: MIDODRINE 5 MG TAB PO SCH ×2 (08:19→16:49)
[2022-11-12] MEDS: INSULIN ASPART (NovoLOG) 100 UNIT/ML VIAL SQ SCH ×4 (08:19→20:53)
[2022-11-12] MEDS: FAMOTIDINE 20 MG TAB PO SCH (08:19)
[2022-11-12] MEDS: METOPROLOL TARTRATE 12.5 MG TAB PO SCH ×2 (08:19→20:50)
[2022-11-12] MEDS: BENZONATATE 100 MG CAP PO SCH ×3 (08:19→20:50)
[2022-11-12] MEDS: NYSTATIN 100,000 UNIT/ML SUSP 500,000 UNIT/5 ML CUP PO SCH ×4 (08:20→20:49)
[2022-11-12] MEDS: FLUTICASONE 50MCG/SPRAY NASAL 16GM EA NOSTRIL SCH ×2 (08:21→20:51)
[2022-11-12] MEDS: guaiFENesin-DM 100-10MG/5ML 10 ML CUP PO PRN ×3 (08:39→22:58)
[2022-11-12] MEDS: ALPRAZolam 0.25 MG TAB PO PRN ×2 (08:39→23:03)
[2022-11-12] MEDS: FORMOTEROL FUMARATE 20 MCG/2 ML NEBU INHALATION SCH ×2 (08:52→21:21)
[2022-11-12] MEDS: BUDESONIDE 1 MG/2 ML NEBU INHALATION SCH ×2 (08:52→21:22)
[2022-11-12 11:20] LABS: Glucose,Whole Blood 229 mg/dL (70-110)
--- NOTE | 2022-11-12 14:32 | P.PN ---
Subjective Progress Note Date: 11/12/22 Principal diagnosis: Metastatic ovarian cancer to lungs 57-year-old female with a history of metastatic ovarian carcinoma, who was seen in the emergency department, on October 30, complaining of shortness of breath, difficulty breathing, cough, chest congestion, and occasional phlegm production. She states that when she weaned herself off the prednisone, her respiratory complaints became worse. I saw her in consultation, September of this year. The patient previously was thought to have pneumonitis, secondary to her chemotherapeutic agent. Currently, the patient is on 2 L of nasal oxygen, with saturations in the mid 90s. She does not appear to be particularly short of breath, does not have any conversational dyspnea, or use of accessory muscles. The patient was given breathing treatments, corticosteroids, and antibiotics. The patient's chest x-ray showed cardiomegaly, mild pulmonary vascular congestion. CT angiogram that was performed, was negative for pulmonary embol ism, showed small bilateral pleural effusions, as well as some upper abdominal lymphadenopathy, and a right middle lobe pulmonary nodule. White count is 8.1, hemoglobin 10, hematocrit 31.3, with a platelet count of 210,000. D-dimer was elevated at 1.85. Sodium 128, potassium 4.3, chlorides 96, CO2 22, BUN 9, creatinine 0.58. The rest of the comprehensive metabolic profile is essentially normal. On today's evaluation of 11/01/2022, the patient is feeling slightly better compared to yesterday. She remains on steroids. The exact cause for her shortness of breath and persistent cough is not clear. The patient is currently having difficulties in laying down flat because of shortness of breath. 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 The patient was originally diagnosed in 2008 has received multiple treatments, most recently on Zejula started in May 2022 after 7 cycles of Doxil/carboplatin in February 2022 with recent imaging in September 2022 revealing evidence of disease progression who presents for acute dyspnea. She was hospitalized from 10/04/2022 through 10/07/2022 for dyspnea at that time, which was thought to be related to pneumonia. She did discontinue Zejula 3 weeks prior to her admission. On discharge, she was placed on a steroid taper lasting approximately 15 days and did not have any respiratory issues during this time. After completing the steroid taper, she developed increased dyspnea with wheezing. I reviewed the CAT scans of the chest and I I think it'll be worthwhile for this patient to undergo a high- resolution CAT scan of the chest to assess for any parenchymal progression of tumor versus drug-induced pneumonitis and is same time I discussed with her the potential of that having a biopsy. She is receiving IV Solu-Medrol 60 mg every 6 hours for now. The patient's WBC count is at 15.7 with a hemoglobin 9.5. Sodium is at 127. The ends of 20 with a creatinine 0.8. LFTs are within normal limits. On today's evaluation of 11/02/2022, the patient is feeling much better compared to yesterday. Shortness of breath and cough is essentially improving. The patient underwent a HRCT of the chest yesterday and it showed a right upper lobe pulmonary nodule a reflect elevated previously metastatic nodule in addition to somebody some lymphadenopathy not well characterized on this study. The patient had bilateral pleural effusions and evidence of some limited subpleural groundglass pulmonary infiltrates. There is also evidence of bronchial wall thickening and mild bronchiectasis. As such, there is no significant airspace disease. No clear indication of parenchymal lung abnormalities to suggest parenchymal lung invasion with malignancy. No evidence of any active pneumonia at this point in time. The patient remains on IV Solu-Medrol. Blood sugar is elevated at 317. The patient is receiving IV Solu-Medrol and she is receiving 60 mg every 6 hours. She is on insulin by scale coverage. Cough is subsiding. On 11/03/2022, no new complaints and the patient is feeling progressively more improved while being on steroids. Cough and shortness of breath subsiding. The patient is on IV Solu-Medrol 60 mg every 6 hours. The patient is currently on room air oxygen with a pulse ox of 96% the blood work shows a WBC count of 13.4 with a hemoglobin of 10.7 and a platelet count of 278. BUN is at 29 with a creatinine of 0.8 his sodiums of 130. Glucose at 228. The blood cultures are essentially negative. 11/02/2022, seeing the patient for a follow-up. Overall condition is progressively improving. Less short of breath as bronchospastic and coughing has subsided significantly. The patient remains on IV Solu-Medrol. I'm going to go ahead and switch the patient to oral prednisone thousand 80 mg by mouth daily. She'll be also taken off the IV Lasix and switch to oral Lasix. No other new complaints otherwise for now. The WBC count is at 10 point with a hemoglobin of 10.7 and platelet count of 272. BUN is 28 with a creatinine of 0.8 and a sodium level is at 131. Blood sugars at 224. No other issues otherwise for now. The patient self reports that she is improving. No fever. No chills. No other complaints. On today's evaluation of 11/05/2022, patient is short of breath and physical remains on 2 L of oxygen by nasal cannula. She is quite uncomfortable. She remains on oral prednisone 80 mg by mouth daily. She is also on Lasix 40 mg by mouth daily. There is no interval worsening in oxygenation. Clinically, the patient is feeling worse. Chest x-ray findings of essentially stable. There is some lower lobe increased interstitial markings bilaterally. Some limited changes also in the upper lobes. WBC count 16, hemoglobin is at 10.7 and a platelet count is at 282. BUN is 26 with a creatinine of 0.9 and his sodium level is at 129. 11/06/2022, patient remains on 2 L of oxygen by nasal cannula. No new complaints. Sodium levels of 127 with patient's potassium levels at 3.4 with a BUN of 22 and a creatinine of 0.9. The the hemoglobin is at 10.8. No other new complaints otherwise for now. Having episodes of cough and this has subsided since yesterday. 11/07/2022, the patient remains on 2 L. His overall respiratory status is un changed and the patient is not having any interval worsening or improvement in her breathing. She continues to have cough especially with deep breathing. Sodium levels of 127. Furthermore, overnight, the patient went to a coughing spell and she went into atrial flutter flutter that lasted for a total of 1 hour and the patient converted into normal sinus rhythm following that. Cardiology has been consulted. The patient was started on amiodarone 200 mg by mouth twice a day and metoprolol 12.5 mg by mouth twice a day. Sodium is at 127, BUN is at 60 with a creatinine of 0.7 and a white cell count is at 14.3. Reevaluated today on 11/08/2022, patient continues to have intermittent episodes of cough, almost continuous, continues to have shortness of breath, I discussed her condition with Dr. Farfan earlier today, and recommended that we proceed with bronchoscopy this was done today, please refer to the full operative report, patient was found to have significant endobronchial tumor involving the right upper lobe, right lower lobe, and these were both almost nearly occluded there is also an endobronchial tumor in the right middle lobe, multiple biopsies were done. Findings were discussed with the . We will ask oncology to that the patient, may also involve radiation oncology labs today showed relatively normal CBC with beverage, 15.3 hemoglobin 10.4 sodium remains low at 124, patient may be developing a picture of SIADH. Reevaluated today on 11/09/2022, is at bedside, patient is doing better, continues to have intermittent cough and shortness of breath. Today I updated the patient on the findings noted on her last bronchoscopy from yesterday. Patient was found to have significant endobronchial pathology with right upper lobe completely occluded with endobronchial tumor, right lower lobe is also some totally occluded with extrinsic compression/tumor involving the right lower lobe bronchus and her right middle lobe was found to have a small endobronchial tumor in the medial wall of the medial segment of the right middle lobe. Clearly we are most likely dealing with metastatic ovarian cancer, biopsies have been taken and results of which are pending. In the meantime the patient seems to be developing worsening hyponatremia and I believe this is SIADH unless proven otherwise. Patient needs to be seen by oncology and possibly by radiation oncology for further input. Patient does usually follow-up with Dr. Thibodeaux/oncologist liz at [facility] in [place], and if it is felt by our oncologist the need to transfer the patient to her oncologist that would be appropriate. The overall picture does not look very promising. Reevaluated today on 11/10/22, patient is basically about the same. Continues to have cough shortness of breath, patient was seen by oncology, she was also seen by nephrology, and she is being treated for SIADH and hyponatremia. Overall no major change in the last few days, today I will recommend evaluation by radia ti oncology to determine whether radiation would be an option for her significant endobronchial disease involving the right upper lobe and right lower lobe as well as right middle lobe. Patient was seen by oncology and her condition is to be discussed between our oncologist and her main oncologist at [facility] in [place]/Dr. Thibodeaux. Reevaluated today on 11/11/2022, patient is about the same, continues to have cough and shortness. Had a long discussion with Dr. Richey yesterday regarding case, and he is planning to radiation therapy. In the meantime he showed me the CT of the chest which was done prior, and the patient seems to be developing bilateral pleural effusions, right more so on the left, I would recommend an ultrasound of the chest today, and the fluid is large enough would proceed with a right-sided thoracentesis mostly for diagnostic and therapeutic purposes. WBC count today is 17.5 hemoglobin is 10.6 sodium is up to 126. BUN is 53 creatinine 1.84. Patient is on fluid restriction, she is also on tolvaptan and she remains on demeclocycline. Her hydrocortisone dose will be cut down to 50 mg every 8 hours Patient was reevaluated today on 11/12/2022, patient continues to have cough and shortness of breath, had radiation treatment yesterday, she had right-sided thor acentesis yesterday, and I drained about 1000 mL of serosanguineous pleural effusion most likely malignant unless for otherwise. Cytology is pending. The fluid is exudative in nature, has LDH of 231 and a relatively elevated protein of 3040. Cytology is pending. Looking at the chest x-ray from yesterday, the left-sided pleural effusion is rather small, and I'm not recommending thoracentesis on the left pleural effusion at this point. Seems to be much smaller than the right side. Not to mention, awaiting cytology from the right- sided pleural effusion and we'll address that accordingly. Objective - Vital Signs Vital signs: Vital Signs Temp 97.6 F 11/12/22 12:00 Pulse 86 11/12/22 12:00 Resp 20 11/12/22 12:00 BP 101/60 11/12/22 12:00 Pulse Ox 97 11/12/22 12:00 FiO2 Intake & Output 11/11/22 11/12/22 11/12/22 18:59 06:59 18:59 Intake Total 585 120 150 Output Total 800 1075 Balance -215 -955 150 Intake: Oral 585 120 150 Output: Urine 800 1075 Other: Voiding Method Toilet # Voids 1 - Exam Physical Exam: Revealed 57-year-old female in no distress on 3 L nasal cannula, O2 sats is 97% Head: Atraumatic, normocephalic. HEENT:[Neck is supple.] [No neck masses.] [No thyromegaly.] [No JVD.] Chest: Diminished breath sound bilaterally no rhonchi and no wheezes patient seems to cough with every deep breath she takes. Cardiac Exam: [Normal S1 and S2, no S3 gallop, no murmur.] Abdomen: [Soft, nontender, no megaly, no rebound, no guarding, normal bowel sounds.] Extremities: [No clubbing, 1 + bipedal edema, no cyanosis.] Neurological Exam: [No focal neurologic deficit.] Alert oriented 3. Psychiatric: Normal mood affect and normal mental status examination. Skin: No rashes - Labs CBC & Chem 7: 11/12/22 07:31 11/12/22 07:31 Labs: Abnormal Lab Results - Last 24 Hours (Table) 11/11/22 11/11/22 11/11/22 Range/Units 13:40 17:03 21:38 WBC (3.8-10.6) k/uL RBC (3.80-5.40) m/uL Hgb (11.4-16.0) gm/dL Hct (34.0-46.0) % MCV (80.0-100.0) fL RDW (11.5-15.5) % Neutrophils # (1.3-7.7) k/uL Sodium (137-145) mmol/L Chloride (98-107) mmol/L Carbon Dioxide (22-30) mmol/L BUN (7-17) mg/dL Creatinine (0.52-1.04) mg/dL Glucose (74-99) mg/dL POC Glucose (mg/dL) 246 H 200 H (70-110) mg/dL Total Protein (6.3-8.2) g/dL Fluid Appearance Bloody A (Clear) 11/12/22 11/12/22 11/12/22 Range/Units 05:58 07:31 07:31 WBC 15.3 H (3.8-10.6) k/uL RBC 3.30 L (3.80-5.40) m/uL Hgb 10.9 L (11.4-16.0) gm/dL Hct 33.5 L (34.0-46.0) % MCV 101.8 H (80.0-100.0) fL RDW 16.9 H (11.5-15.5) % Neutrophils # 13.1 H (1.3-7.7) k/uL Sodium 130 L (137-145) mmol/L Chloride 91 L (98-107) mmol/L Carbon Dioxide 31 H (22-30) mmol/L BUN 48 H (7-17) mg/dL Creatinine 1.47 H (0.52-1.04) mg/dL Glucose 170 H (74-99) mg/dL POC Glucose (mg/dL) 182 H (70-110) mg/dL Total Protein 6.0 L (6.3-8.2) g/dL Fluid Appearance (Clear) 11/12/22 Range/Units 11:19 WBC (3.8-10.6) k/uL RBC (3.80-5.40) m/uL Hgb (11.4-16.0) gm/dL Hct (34.0-46.0) % MCV (80.0-100.0) fL RDW (11.5-15.5) % Neutrophils # (1.3-7.7) k/uL Sodium (137-145) mmol/L Chloride (98-107) mmol/L Carbon Dioxide (22-30) mmol/L BUN (7-17) mg/dL Creatinine (0.52-1.04) mg/dL Glucose (74-99) mg/dL POC Glucose (mg/dL) 229 H (70-110) mg/dL Total Protein (6.3-8.2) g/dL Fluid Appearance (Clear) Microbiology - Last 24 Hours (Table) 11/11/22 13:40 Gram Stain - Preliminary Pleural Fluid Body Fluid Culture - Preliminary 11/08/22 11:00 Gram Stain - Final Bronchial Washings - Random Bronchial Washings Culture - Final Staphylococcus aureus 11/08/22 11:00 Gram Stain - Final Bronchial Washings - Right Bronchial Washings Culture - Final Assessment and Plan Assessment: Impression: Metastatic ovarian cancer with significant involvement of the right upper lobe and right middle lobe as well as right lower lobe Acute hypoxic respiratory failure secondary to above Diffuse thoracic adenopathy secondary to metastatic ovarian cancer 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 Recommendation: Continue present supportive care measures No plans to do left-sided thoracentesis at this point Awaiting cytology from right pleural effusion Continue fluid restriction for hyponatremia/SIADH continue treatment as per nephrology Continue cefazolin for MSSA in the sputum Continue present supportive care measures for now, We will continue to follow Overall prognosis is poor Time with Patient: Less than 30
--- NOTE | 2022-11-12 15:16 | P.PN ---
Subjective Patient is seen for f/u for hyponatremia secondary to SIADH Status post Samsca. Patient is also maintained on demeclocycline. Urine osmolality was high at 535 Sodium is 130 today. Serum creatinine had increased to 1.8 and Motrin was discontinued. Also started on midodrine for hypotension. Creatinine today is 1.4 Objective - Vital Signs Vital signs: Vital Signs Temp 97.6 F 11/12/22 12:00 Pulse 86 11/12/22 12:00 Resp 20 11/12/22 12:00 BP 101/60 11/12/22 12:00 Pulse Ox 97 11/12/22 12:00 FiO2 Intake & Output 11/11/22 11/12/22 11/12/22 18:59 06:59 18:59 Intake Total 585 120 390 Output Total 800 1075 Balance -215 -955 390 Intake: Oral 585 120 390 Output: Urine 800 1075 Other: Voiding Method Toilet # Voids 1 - Exam Awake , comfortable, no acute distress. A and O x3 Lungs show decreased breath sounds right lung CVS S1 and S2 Extremities show trace edema. [employer] exam is grossly intact. - Labs CBC & Chem 7: 11/12/22 07:31 11/12/22 07:31 Labs: Abnormal Lab Results - Last 24 Hours (Table) 11/11/22 11/11/22 11/11/22 Range/Units 13:40 17:03 21:38 WBC (3.8-10.6) k/uL RBC (3.80-5.40) m/uL Hgb (11.4-16.0) gm/dL Hct (34.0-46.0) % MCV (80.0-100.0) fL RDW (11.5-15.5) % Neutrophils # (1.3-7.7) k/uL Sodium (137-145) mmol/L Chloride (98-107) mmol/L Carbon Dioxide (22-30) mmol/L BUN (7-17) mg/dL Creatinine (0.52-1.04) mg/dL Glucose (74-99) mg/dL POC Glucose (mg/dL) 246 H 200 H (70-110) mg/dL Total Protein (6.3-8.2) g/dL Fluid Appearance Bloody A (Clear) 11/12/22 11/12/22 11/12/22 Range/Units 05:58 07:31 07:31 WBC 15.3 H (3.8-10.6) k/uL RBC 3.30 L (3.80-5.40) m/uL Hgb 10.9 L (11.4-16.0) gm/dL Hct 33.5 L (34.0-46.0) % MCV 101.8 H (80.0-100.0) fL RDW 16.9 H (11.5-15.5) % Neutrophils # 13.1 H (1.3-7.7) k/uL Sodium 130 L (137-145) mmol/L Chloride 91 L (98-107) mmol/L Carbon Dioxide 31 H (22-30) mmol/L BUN 48 H (7-17) mg/dL Creatinine 1.47 H (0.52-1.04) mg/dL Glucose 170 H (74-99) mg/dL POC Glucose (mg/dL) 182 H (70-110) mg/dL Total Protein 6.0 L (6.3-8.2) g/dL Fluid Appearance (Clear) 11/12/22 Range/Units 11:19 WBC (3.8-10.6) k/uL RBC (3.80-5.40) m/uL Hgb (11.4-16.0) gm/dL Hct (34.0-46.0) % MCV (80.0-100.0) fL RDW (11.5-15.5) % Neutrophils # (1.3-7.7) k/uL Sodium (137-145) mmol/L Chloride (98-107) mmol/L Carbon Dioxide (22-30) mmol/L BUN (7-17) mg/dL Creatinine (0.52-1.04) mg/dL Glucose (74-99) mg/dL POC Glucose (mg/dL) 229 H (70-110) mg/dL Total Protein (6.3-8.2) g/dL Fluid Appearance (Clear) Microbiology - Last 24 Hours (Table) 11/11/22 13:40 Gram Stain - Preliminary Pleural Fluid Body Fluid Culture - Preliminary 11/08/22 11:00 Gram Stain - Final Bronchial Washings - Random Bronchial Washings Culture - Final Staphylococcus aureus Assessment and Plan Assessment: 1. Hyponatremia, currently euvolemic to mildly hypervolemic. 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 Urine osmolality 535. IVF discontinued and s/p samsca. Patient is also maintained on demeclocycline. 2. Metastatic ovarian cancer with metastases to the lungs and pericardial effusion, status post pericardial window 3. New onset paroxysmal atrial flutter now in sinus rhythm 4. Acute hypoxic respiratory failure associated with significant involvement of the right lung with tumor and near occlusion of the bronchus. Significant right pleural effusion noted, s/p thoracentesis. 5. Acute kidney injury secondary to NSAIDs in the setting of hypotension, improving. Plan: Continue off of NSAIDs May continue demeclocycline as well Continue midodrine for SBP less than 100mmHg Encouraged increased oral intake, particularly protein. Maintain fluid restriction.
[2022-11-12] MEDS: IPRATROPIUM-ALBUTEROL 3 ML NEB INHALATION PRN (16:41)
[2022-11-12 16:42] LABS: Glucose,Whole Blood 212 mg/dL (70-110)
[2022-11-12 19:59] LABS: Glucose,Whole Blood 249 mg/dL (70-110)
[2022-11-12] MEDS: HEPARIN SODIUM,PORCINE/PF 5,000 UNIT/0.5 ML SYRINGE SQ SCH ×2 (20:49→21:02)
[2022-11-12] MEDS: SENNOSIDES-DOCUSATE SODIUM 1 EACH TAB PO SCH (20:50)
[2022-11-12] MEDS: ZYRTEC 10MG TABLET PO SCH (20:51)
[2022-11-13] MEDS: IPRATROPIUM-ALBUTEROL 3 ML NEB INHALATION SCH ×6 (00:27→20:49)
[2022-11-13] MEDS: HYDROCORTISONE SUCCINATE 100 MG/2 ML VIAL IV SCH ×4 (00:30→23:28)
[2022-11-13] MEDS: DOCUSATE 100 MG CAP PO PRN (04:28)
[2022-11-13 06:01] LABS: Glucose,Whole Blood 185 mg/dL (70-110)
[2022-11-13] MEDS: MIDODRINE 5 MG TAB PO SCH ×2 (06:24→16:53)
[2022-11-13] MEDS: INSULIN ASPART (NovoLOG) 100 UNIT/ML VIAL SQ SCH ×4 (06:24→21:25)
[2022-11-13] MEDS: HEPARIN SODIUM,PORCINE/PF 5,000 UNIT/0.5 ML SYRINGE SQ SCH ×2 (09:07→21:25)
[2022-11-13] MEDS: BUDESONIDE 1 MG/2 ML NEBU INHALATION SCH ×2 (09:08→20:49)
[2022-11-13] MEDS: FORMOTEROL FUMARATE 20 MCG/2 ML NEBU INHALATION SCH ×2 (09:08→20:49)
[2022-11-13] MEDS: BENZONATATE 100 MG CAP PO SCH ×3 (09:32→21:24)
[2022-11-13] MEDS: METOPROLOL TARTRATE 12.5 MG TAB PO SCH ×2 (09:32→21:24)
[2022-11-13] MEDS: FAMOTIDINE 20 MG TAB PO SCH (09:32)
[2022-11-13] MEDS: DEMECLOCYCLINE 150 MG TAB PO SCH ×2 (09:32→21:24)
[2022-11-13] MEDS: AMIODARONE 200 MG TAB PO SCH ×2 (09:32→21:25)
[2022-11-13] MEDS: FLUTICASONE 50MCG/SPRAY NASAL 16GM EA NOSTRIL SCH ×2 (09:33→21:25)
[2022-11-13] MEDS: NYSTATIN 100,000 UNIT/ML SUSP 500,000 UNIT/5 ML CUP PO SCH ×4 (09:33→21:25)
[2022-11-13] MEDS: FLUCONAZOLE 150 MG TAB PO SCH (09:33)
--- NOTE | 2022-11-13 10:18 | P.PN ---
Subjective Progress Note Date: 11/13/22 Principal diagnosis: Metastatic ovarian cancer to lungs 57-year-old female with a history of metastatic ovarian carcinoma, who was seen in the emergency department, on October 30, complaining of shortness of breath, difficulty breathing, cough, chest congestion, and occasional phlegm production. She states that when she weaned herself off the prednisone, her respiratory complaints became worse. I saw her in consultation, September of this year. The patient previously was thought to have pneumonitis, secondary to her chemotherapeutic agent. Currently, the patient is on 2 L of nasal oxygen, with saturations in the mid 90s. She does not appear to be particularly short of breath, does not have any conversational dyspnea, or use of accessory muscles. The patient was given breathing treatments, corticosteroids, and antibiotics. The patient's chest x-ray showed cardiomegaly, mild pulmonary vascular congestion. CT angiogram that was performed, was negative for pulmonary embol ism, showed small bilateral pleural effusions, as well as some upper abdominal lymphadenopathy, and a right middle lobe pulmonary nodule. White count is 8.1, hemoglobin 10, hematocrit 31.3, with a platelet count of 210,000. D-dimer was elevated at 1.85. Sodium 128, potassium 4.3, chlorides 96, CO2 22, BUN 9, creatinine 0.58. The rest of the comprehensive metabolic profile is essentially normal. On today's evaluation of 11/01/2022, the patient is feeling slightly better compared to yesterday. She remains on steroids. The exact cause for her shortness of breath and persistent cough is not clear. The patient is currently having difficulties in laying down flat because of shortness of breath. 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 The patient was originally diagnosed in 2008 has received multiple treatments, most recently on Zejula started in May 2022 after 7 cycles of Doxil/carboplatin in February 2022 with recent imaging in September 2022 revealing evidence of disease progression who presents for acute dyspnea. She was hospitalized from 10/04/2022 through 10/07/2022 for dyspnea at that time, which was thought to be related to pneumonia. She did discontinue Zejula 3 weeks prior to her admission. On discharge, she was placed on a steroid taper lasting approximately 15 days and did not have any respiratory issues during this time. After completing the steroid taper, she developed increased dyspnea with wheezing. I reviewed the CAT scans of the chest and I I think it'll be worthwhile for this patient to undergo a high- resolution CAT scan of the chest to assess for any parenchymal progression of tumor versus drug-induced pneumonitis and is same time I discussed with her the potential of that having a biopsy. She is receiving IV Solu-Medrol 60 mg every 6 hours for now. The patient's WBC count is at 15.7 with a hemoglobin 9.5. Sodium is at 127. The ends of 20 with a creatinine 0.8. LFTs are within normal limits. On today's evaluation of 11/02/2022, the patient is feeling much better compared to yesterday. Shortness of breath and cough is essentially improving. The patient underwent a HRCT of the chest yesterday and it showed a right upper lobe pulmonary nodule a reflect elevated previously metastatic nodule in addition to somebody some lymphadenopathy not well characterized on this study. The patient had bilateral pleural effusions and evidence of some limited subpleural groundglass pulmonary infiltrates. There is also evidence of bronchial wall thickening and mild bronchiectasis. As such, there is no significant airspace disease. No clear indication of parenchymal lung abnormalities to suggest parenchymal lung invasion with malignancy. No evidence of any active pneumonia at this point in time. The patient remains on IV Solu-Medrol. Blood sugar is elevated at 317. The patient is receiving IV Solu-Medrol and she is receiving 60 mg every 6 hours. She is on insulin by scale coverage. Cough is subsiding. On 11/03/2022, no new complaints and the patient is feeling progressively more improved while being on steroids. Cough and shortness of breath subsiding. The patient is on IV Solu-Medrol 60 mg every 6 hours. The patient is currently on room air oxygen with a pulse ox of 96% the blood work shows a WBC count of 13.4 with a hemoglobin of 10.7 and a platelet count of 278. BUN is at 29 with a creatinine of 0.8 his sodiums of 130. Glucose at 228. The blood cultures are essentially negative. 11/02/2022, seeing the patient for a follow-up. Overall condition is progressively improving. Less short of breath as bronchospastic and coughing has subsided significantly. The patient remains on IV Solu-Medrol. I'm going to go ahead and switch the patient to oral prednisone thousand 80 mg by mouth daily. She'll be also taken off the IV Lasix and switch to oral Lasix. No other new complaints otherwise for now. The WBC count is at 10 point with a hemoglobin of 10.7 and platelet count of 272. BUN is 28 with a creatinine of 0.8 and a sodium level is at 131. Blood sugars at 224. No other issues otherwise for now. The patient self reports that she is improving. No fever. No chills. No other complaints. On today's evaluation of 11/05/2022, patient is short of breath and physical remains on 2 L of oxygen by nasal cannula. She is quite uncomfortable. She remains on oral prednisone 80 mg by mouth daily. She is also on Lasix 40 mg by mouth daily. There is no interval worsening in oxygenation. Clinically, the patient is feeling worse. Chest x-ray findings of essentially stable. There is some lower lobe increased interstitial markings bilaterally. Some limited changes also in the upper lobes. WBC count 16, hemoglobin is at 10.7 and a platelet count is at 282. BUN is 26 with a creatinine of 0.9 and his sodium level is at 129. 11/06/2022, patient remains on 2 L of oxygen by nasal cannula. No new complaints. Sodium levels of 127 with patient's potassium levels at 3.4 with a BUN of 22 and a creatinine of 0.9. The the hemoglobin is at 10.8. No other new complaints otherwise for now. Having episodes of cough and this has subsided since yesterday. 11/07/2022, the patient remains on 2 L. His overall respiratory status is un changed and the patient is not having any interval worsening or improvement in her breathing. She continues to have cough especially with deep breathing. Sodium levels of 127. Furthermore, overnight, the patient went to a coughing spell and she went into atrial flutter flutter that lasted for a total of 1 hour and the patient converted into normal sinus rhythm following that. Cardiology has been consulted. The patient was started on amiodarone 200 mg by mouth twice a day and metoprolol 12.5 mg by mouth twice a day. Sodium is at 127, BUN is at 60 with a creatinine of 0.7 and a white cell count is at 14.3. Reevaluated today on 11/08/2022, patient continues to have intermittent episodes of cough, almost continuous, continues to have shortness of breath, I discussed her condition with Dr. Farfan earlier today, and recommended that we proceed with bronchoscopy this was done today, please refer to the full operative report, patient was found to have significant endobronchial tumor involving the right upper lobe, right lower lobe, and these were both almost nearly occluded there is also an endobronchial tumor in the right middle lobe, multiple biopsies were done. Findings were discussed with the . We will ask oncology to that the patient, may also involve radiation oncology labs today showed relatively normal CBC with beverage, 15.3 hemoglobin 10.4 sodium remains low at 124, patient may be developing a picture of SIADH. Reevaluated today on 11/09/2022, is at bedside, patient is doing better, continues to have intermittent cough and shortness of breath. Today I updated the patient on the findings noted on her last bronchoscopy from yesterday. Patient was found to have significant endobronchial pathology with right upper lobe completely occluded with endobronchial tumor, right lower lobe is also some totally occluded with extrinsic compression/tumor involving the right lower lobe bronchus and her right middle lobe was found to have a small endobronchial tumor in the medial wall of the medial segment of the right middle lobe. Clearly we are most likely dealing with metastatic ovarian cancer, biopsies have been taken and results of which are pending. In the meantime the patient seems to be developing worsening hyponatremia and I believe this is SIADH unless proven otherwise. Patient needs to be seen by oncology and possibly by radiation oncology for further input. Patient does usually follow-up with Dr. Thibodeaux/oncologist liz at [facility] in [place], and if it is felt by our oncologist the need to transfer the patient to her oncologist that would be appropriate. The overall picture does not look very promising. Reevaluated today on 11/10/22, patient is basically about the same. Continues to have cough shortness of breath, patient was seen by oncology, she was also seen by nephrology, and she is being treated for SIADH and hyponatremia. Overall no major change in the last few days, today I will recommend evaluation by radia ti oncology to determine whether radiation would be an option for her significant endobronchial disease involving the right upper lobe and right lower lobe as well as right middle lobe. Patient was seen by oncology and her condition is to be discussed between our oncologist and her main oncologist at [facility]/Dr. Thibodeaux. Reevaluated today on 11/11/2022, patient is about the same, continues to have cough and shortness. Had a long discussion with Dr. Richey yesterday regarding case, and he is planning to radiation therapy. In the meantime he showed me the CT of the chest which was done prior, and the patient seems to be developing bilateral pleural effusions, right more so on the left, I would recommend an ultrasound of the chest today, and the fluid is large enough would proceed with a right-sided thoracentesis mostly for diagnostic and therapeutic purposes. WBC count today is 17.5 hemoglobin is 10.6 sodium is up to 126. BUN is 53 creatinine 1.84. Patient is on fluid restriction, she is also on tolvaptan and she remains on demeclocycline. Her hydrocortisone dose will be cut down to 50 mg every 8 hours Patient was reevaluated today on 11/12/2022, patient continues to have cough and shortness of breath, had radiation treatment yesterday, she had right-sided thor acentesis yesterday, and I drained about 1000 mL of serosanguineous pleural effusion most likely malignant unless for otherwise. Cytology is pending. The fluid is exudative in nature, has LDH of 231 and a relatively elevated protein of 3040. Cytology is pending. Looking at the chest x-ray from yesterday, the left-sided pleural effusion is rather small, and I'm not recommending thoracentesis on the left pleural effusion at this point. Seems to be much smaller than the right side. Not to mention, awaiting cytology from the right- sided pleural effusion and we'll address that accordingly. Patient was reevaluated today on 11/13/2022, patient is mostly complaining of generalized weakness, fatigue, shortness of breath upon any activity, and weakness more pronounced than ever. Hence I'm recommending a Cortrosyn stimulation test on this patient patient has been on stress doses of hydrocorti sone all along. Sodium is better, her labs are improving, cytology from the pleural effusion is pending biopsy results from the endobronchial tumors are pending patient had radiation already by Dr. Richey. Her labs today showed WBC count of 15.3 hemoglobin 10.9 sodium is 130 renal profile is improving BUN is 48 creatinine 1.47 Objective - Vital Signs Vital signs: Vital Signs Temp 98.3 F 11/13/22 08:00 Pulse 83 11/13/22 09:34 Resp 19 11/13/22 08:00 BP 106/60 11/13/22 08:00 Pulse Ox 100 11/13/22 09:11 FiO2 Intake & Output 11/12/22 11/13/22 11/13/22 18:59 06:59 18:59 Intake Total 1090 970 Output Total 600 Balance 1090 370 Intake: Intake, IV Titration 50 Amount ceFAZolin 1,000 mg In 50 Sodium Chloride 0.9% 50 ml @ 100 mls/hr IVPB Q8HR [facility] Rx#:[id number] Oral 1040 970 Output: Urine 600 Other: Voiding Method Toilet # Voids 1 1 - Exam Physical Exam: Revealed 57-year-old female in no distress on on 2 L nasal cannula with O2 saturation 100% Head: Atraumatic, normocephalic. HEENT:[Neck is supple.] [No neck masses.] [No thyromegaly.] [No JVD.] Chest: Diminished breath sound bilaterally no rhonchi and no wheezes patient seems to cough with every deep breath she takes. Cardiac Exam: [Normal S1 and S2, no S3 gallop, no murmur.] Abdomen: [Soft, nontender, no megaly, no rebound, no guarding, normal bowel sounds.] Extremities: [No clubbing, 1 + bipedal edema, no cyanosis.] Neurological Exam: [No focal neurologic deficit.] Alert oriented 3. Psychiatric: Normal mood affect and normal mental status examination. Skin: No rashes - Labs CBC & Chem 7: 11/12/22 07:31 11/12/22 07:31 Labs: Abnormal Lab Results - Last 24 Hours (Table) 11/12/22 11/12/22 11/12/22 Range/Units 11:19 16:37 19:57 POC Glucose (mg/dL) 229 H 212 H 249 H (70-110) mg/dL Magnesium (1.6-2.3) mg/dL 11/13/22 11/13/22 Range/Units 05:59 06:12 POC Glucose (mg/dL) 185 H (70-110) mg/dL Magnesium 2.4 H (1.6-2.3) mg/dL Microbiology - Last 24 Hours (Table) 11/11/22 13:40 Gram Stain - Preliminary Pleural Fluid Body Fluid Culture - Preliminary Assessment and Plan Assessment: Impression: Metastatic ovarian cancer with significant involvement of the right upper lobe and right middle lobe as well as right lower lobe Acute hypoxic respiratory failure secondary to above Diffuse thoracic adenopathy secondary to metastatic ovarian cancer 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 Recommendation: Considering her profound weakness I'm recommending a Cortrosyn stimulation test on this patient. Continue present supportive care measures Awaiting cytology from right pleural effusion Fluid restriction for SIADH Continue cefazolin for MSSA in the sputum Continue present supportive care measures for now, We will continue to follow Time with Patient: Less than 30
[2022-11-13 10:19] LABS: Anisocytosis Slight; Basophils % (A) 0 %; Eosinophils % (A) 0 %; HCT 33.7 % (34.0-46.0); HGB 10.8 gm/dL (11.4-16.0); Hypochromasia Moderate; Lymphocytes % (A) 7 %; MCH 33.1 pg (25.0-35.0); MCHC 32.1 g/dL (31.0-37.0); Macrocytosis Moderate; Mean Platelet Volume 7.9; Monocytes # (A) 0.4 k/uL (0-1.0); Monocytes % (A) 3 %; Neutrophils # (A) 12.3 k/uL (1.3-7.7); Neutrophils % (A) 90 %; Platelet Count 218 k/uL (150-450); RBC 3.27 m/uL (3.80-5.40); RDW 16.8 % (11.5-15.5); WBC 13.7 k/uL (3.8-10.6)
[2022-11-13] MEDS: MAGNESIUM OXIDE 400 MG TAB PO SCH (10:19)
[2022-11-13 10:23] LABS: African American GFR (CKD) 56 (>60 ml/min/1.73 sqM); Anion Gap 12 mmol/L; Blood Urea Nitrogen 46 mg/dL (7-17); Carbon Dioxide 22 mmol/L (22-30); Chloride 94 mmol/L (98-107); Glucose 177 mg/dL (74-99); Non-African American GFR(CKD) 48 (>60 ml/min/1.73 sqM); Potassium 3.7 mmol/L (3.5-5.1); Sodium 128 mmol/L (137-145)
[2022-11-13 11:43] LABS: Glucose,Whole Blood 294 mg/dL (70-110)
[2022-11-13] MEDS: ALPRAZolam 0.25 MG TAB PO PRN (12:58)
[2022-11-13] MEDS ORDERED: SODIUM CHLORIDE 0.65% NASAL SPRAY 44 ML BTL NASAL PRN (13:13)
[2022-11-13 16:43] LABS: Glucose,Whole Blood 168 mg/dL (70-110)
[2022-11-13] MEDS ORDERED: SALINE NASAL GEL 14.1 GM TUBE NASAL PRN (16:46)
[2022-11-13] MEDS ORDERED: LORATADINE 10 MG TAB PO PRN (16:47)
--- NOTE | 2022-11-13 16:51 | P.PN ---
Subjective Progress Note Date: 11/12/22 This is a patient of Dr Velazquez who has been hospitalized secondary metastatic ovarian cancer and found to have pericardial effusion and pleural effusion. Patient underwent bronchoscopy and found to have endobronchial lesion and started on palliative radiation to receive 2nd treatment today. Underwent right sided thoracentesis which was bloody in nature and currently pending pathology. Patient remains on 15L hi flow cannula and is tearful about current diagnosis as she has had lengthy hospital stay at 14 days. Continues on IV cefazolin for staph aureas positive sputum culture, IV solu-cortef. Patient received a dose of samsca yesterday and sodium is up to 130. White count down to 15.3, hemoglobin s table at 10.9. 11/13/2022 Patient is evaluated today sitting up in chair. Daughter at bedside. Patient started on DVT prophylaxis with subcu heparin refusing mechanical prophylaxis doesn't want SCDs. Patient continues on 3L of oxygen with humidification and reports significant sinus congestion and stuffy crusty nose. Using flonase and will add deep sea nasal spray and can use thin coating of ayr saline gel with a qtip to moisten the nasal passages. Claritin as needed has been added as well. Patient remains on duobens IV solucortef and IV cefazolin. Pathology from thoracentesis is pending. Blood pressure emains low 100s high 90s systolic and continues on midodrine BID. patient feels progressively weak and unable to tolerate ambulation for long distances. Had a BM this morning. Review of Systems Constitutional: Reports fatigue denied any fever. Cardio vascular: denied any chest pain, palpitations Gastrointestinal: denied any nausea, vomiting, diarrhea Pulmonary: Reports shortness of breath Neurologic denied any new focal deficits All inpatient medications were reviewed and appropriate changes in these medications as dictated in the interval history and assessment and plan. PHYSICAL EXAMINATION: GENERAL: The patient is alert and oriented x3, not in any acute distress. Well d eveloped, well nourished. HEENT: Pupils are round and equally reacting to light. EOMI. No scleral icterus. No conjunctival pallor. Normocephalic, atraumatic. No pharyngeal erythema. No thyromegaly. CARDIOVASCULAR: S1 and S2 present. No murmurs, rubs, or gallops. PULMONARY: Scattered wheezing right lung left lung diminished. ABDOMEN: Soft, nontender, nondistended, normoactive bowel sounds. No palpable organomegaly. MUSCULOSKELETAL: No joint swelling or deformity. EXTREMITIES: No cyanosis, clubbing, or pedal edema. NEUROLOGICAL: Gross neurological examination did not reveal any focal deficits. Generalized weakness SKIN: No rashes. Assessment Metastatic ovarian cancer with lung involvement and diffuse thoracic adenopathy Acute hypoxic respiratory failure secondary to bilateral pleural effusions and near complete occlusion of the right upper lobe s/p right sided thoracentesis Endobrachial lesion initiated on palliative radiation Positive sputum culture for staph aureus on IV cefazolin History of malignant pericardial effusion s/p pericardial window Bronchospasm Oral thrush Atrial flutter, paroxysmal Hyponatremia likely due to SIADH GI prophylaxis Plan Patient to continue on IV antibiotics and IV solu-cortef Pathology pending from the thoracentesis Initiated on palliative radiation Patient is continued on fluid restriction and s/p samsca x1, sodium improving overal Patient is continued on bowel regimen and increasing activity as tolerated Recommending to add saline spray and claritin as needed for sinus congestion and dry nasal passages F/U labs in AM PT OT has been consulted. The impression and plan of care has been dictated by Alea Heaton Nurse Practitioner as directed. Dr. Lynn MD I have performed a history and physical examination and medical decision making of this patient, discussed the same with the dictator, and agree with the dictators assessment and plan as written, documented as a scribe. Based on total visit time, I have performed more than 50% of this visit. Objective - Vital Signs Vital signs: Vital Signs Temp 97.6 F 11/12/22 12:00 Pulse 86 11/12/22 12:00 Resp 20 11/12/22 12:00 BP 101/60 11/12/22 12:00 Pulse Ox 97 11/12/22 12:00 FiO2 Intake & Output 11/11/22 11/12/22 11/12/22 18:59 06:59 18:59 Intake Total 585 120 150 Output Total 800 1075 Balance -215 -955 150 Intake: Oral 585 120 150 Output: Urine 800 1075 Other: Voiding Method Toilet # Voids 1 - Labs CBC & Chem 7: 11/13/22 06:12 11/13/22 06:12 Labs: Abnormal Lab Results - Last 24 Hours (Table) 11/11/22 11/11/22 11/11/22 Range/Units 13:40 17:03 21:38 WBC (3.8-10.6) k/uL RBC (3.80-5.40) m/uL Hgb (11.4-16.0) gm/dL Hct (34.0-46.0) % MCV (80.0-100.0) fL RDW (11.5-15.5) % Neutrophils # (1.3-7.7) k/uL Sodium (137-145) mmol/L Chloride (98-107) mmol/L Carbon Dioxide (22-30) mmol/L BUN (7-17) mg/dL Creatinine (0.52-1.04) mg/dL Glucose (74-99) mg/dL POC Glucose (mg/dL) 246 H 200 H (70-110) mg/dL Total Protein (6.3-8.2) g/dL Fluid Appearance Bloody A (Clear) 11/12/22 11/12/22 11/12/22 Range/Units 05:58 07:31 07:31 WBC 15.3 H (3.8-10.6) k/uL RBC 3.30 L (3.80-5.40) m/uL Hgb 10.9 L (11.4-16.0) gm/dL Hct 33.5 L (34.0-46.0) % MCV 101.8 H (80.0-100.0) fL RDW 16.9 H (11.5-15.5) % Neutrophils # 13.1 H (1.3-7.7) k/uL Sodium 130 L (137-145) mmol/L Chloride 91 L (98-107) mmol/L Carbon Dioxide 31 H (22-30) mmol/L BUN 48 H (7-17) mg/dL Creatinine 1.47 H (0.52-1.04) mg/dL Glucose 170 H (74-99) mg/dL POC Glucose (mg/dL) 182 H (70-110) mg/dL Total Protein 6.0 L (6.3-8.2) g/dL Fluid Appearance (Clear) 11/12/22 Range/Units 11:19 WBC (3.8-10.6) k/uL RBC (3.80-5.40) m/uL Hgb (11.4-16.0) gm/dL Hct (34.0-46.0) % MCV (80.0-100.0) fL RDW (11.5-15.5) % Neutrophils # (1.3-7.7) k/uL Sodium (137-145) mmol/L Chloride (98-107) mmol/L Carbon Dioxide (22-30) mmol/L BUN (7-17) mg/dL Creatinine (0.52-1.04) mg/dL Glucose (74-99) mg/dL POC Glucose (mg/dL) 229 H (70-110) mg/dL Total Protein (6.3-8.2) g/dL Fluid Appearance (Clear) Microbiology - Last 24 Hours (Table) 11/11/22 13:40 Gram Stain - Preliminary Pleural Fluid Body Fluid Culture - Preliminary 11/08/22 11:00 Gram Stain - Final Bronchial Washings - Random Bronchial Washings Culture - Final Staphylococcus aureus 11/08/22 11:00 Gram Stain - Final Bronchial Washings - Right Bronchial Washings Culture - Final Assessment and Plan Time with Patient: Less than 30
[2022-11-13 20:08] LABS: Glucose,Whole Blood 281 mg/dL (70-110)
[2022-11-13] MEDS: guaiFENesin-DM 100-10MG/5ML 10 ML CUP PO PRN (21:24)
[2022-11-13] MEDS: SENNOSIDES-DOCUSATE SODIUM 1 EACH TAB PO SCH (21:25)
[2022-11-13] MEDS: ZYRTEC 10MG TABLET PO SCH (21:26)
[2022-11-13] MEDS ORDERED: TOLVAPTAN 15 MG TABLET PO ONE (22:59)
--- NOTE | 2022-11-13 23:01 | P.PN ---
Subjective Patient is seen for f/u for hyponatremia secondary to SIADH Status post Samsca. Patient is also maintained on demeclocycline. Urine osmolality was high at 535 Sodium is pending from today.. Serum creatinine had increased to 1.8 and Motrin was discontinued. Also started on midodrine for hypotension. Creatinine decreased to 1.4 yesterday. Objective - Vital Signs Vital signs: Vital Signs Temp 97.5 F L 11/13/22 20:00 Pulse 88 11/13/22 21:12 Resp 18 11/13/22 20:00 BP 101/70 11/13/22 20:00 Pulse Ox 99 11/13/22 20:00 FiO2 Intake & Output 11/13/22 11/13/22 11/14/22 06:59 18:59 06:59 Intake Total 970 240 0 Output Total 600 400 Balance 370 -160 0 Intake: Oral 970 240 0 Output: Urine 600 400 Other: Voiding Method Toilet Toilet Toilet # Voids 1 - Exam Awake , comfortable, no acute distress. A and O x3 Lungs show decreased breath sounds right lung CVS S1 and S2 Extremities show trace edema. [employer] exam is grossly intact. - Labs CBC & Chem 7: 11/13/22 06:12 11/13/22 06:12 Labs: Abnormal Lab Results - Last 24 Hours (Table) 11/13/22 11/13/22 11/13/22 Range/Units 05:59 06:12 06:12 WBC 13.7 H (3.8-10.6) k/uL RBC 3.27 L (3.80-5.40) m/uL Hgb 10.8 L (11.4-16.0) gm/dL Hct 33.7 L (34.0-46.0) % MCV 103.0 H (80.0-100.0) fL RDW 16.8 H (11.5-15.5) % Neutrophils # 12.3 H (1.3-7.7) k/uL Sodium (137-145) mmol/L Chloride (98-107) mmol/L BUN (7-17) mg/dL Creatinine (0.52-1.04) mg/dL Glucose (74-99) mg/dL POC Glucose (mg/dL) 185 H (70-110) mg/dL Magnesium 2.4 H (1.6-2.3) mg/dL 11/13/22 11/13/22 11/13/22 Range/Units 06:12 11:42 16:41 WBC (3.8-10.6) k/uL RBC (3.80-5.40) m/uL Hgb (11.4-16.0) gm/dL Hct (34.0-46.0) % MCV (80.0-100.0) fL RDW (11.5-15.5) % Neutrophils # (1.3-7.7) k/uL Sodium 128 L (137-145) mmol/L Chloride 94 L (98-107) mmol/L BUN 46 H (7-17) mg/dL Creatinine 1.25 H (0.52-1.04) mg/dL Glucose 177 H (74-99) mg/dL POC Glucose (mg/dL) 294 H 168 H (70-110) mg/dL Magnesium (1.6-2.3) mg/dL 11/13/22 Range/Units 20:06 WBC (3.8-10.6) k/uL RBC (3.80-5.40) m/uL Hgb (11.4-16.0) gm/dL Hct (34.0-46.0) % MCV (80.0-100.0) fL RDW (11.5-15.5) % Neutrophils # (1.3-7.7) k/uL Sodium (137-145) mmol/L Chloride (98-107) mmol/L BUN (7-17) mg/dL Creatinine (0.52-1.04) mg/dL Glucose (74-99) mg/dL POC Glucose (mg/dL) 281 H (70-110) mg/dL Magnesium (1.6-2.3) mg/dL Microbiology - Last 24 Hours (Table) 11/11/22 13:40 Gram Stain - Preliminary Pleural Fluid Body Fluid Culture - Preliminary Assessment and Plan Assessment: 1. Hyponatremia, currently euvolemic to mildly hypervolemic. 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 Urine osmolality 535. IVF discontinued and s/p samsca. Patient is also maintained on demeclocycline. 2. Metastatic ovarian cancer with metastases to the lungs and pericardial effusion, status post pericardial window 3. New onset paroxysmal atrial flutter now in sinus rhythm 4. Acute hypoxic respiratory failure associated with significant involvement of the right lung with tumor and near occlusion of the bronchus. Significant right pleural effusion noted, s/p thoracentesis. 5. Acute kidney injury secondary to NSAIDs in the setting of hypotension, improving. Plan: Repeat samsca if sodium is lower. Increase demeclocycline.
[2022-11-14] MEDS: IPRATROPIUM-ALBUTEROL 3 ML NEB INHALATION SCH ×7 (00:20→23:37)
[2022-11-14] MEDS: ALPRAZolam 0.25 MG TAB PO PRN ×2 (06:03→21:30)
[2022-11-14] MEDS: DOCUSATE 100 MG CAP PO PRN (06:03)
[2022-11-14] MEDS: MIDODRINE 5 MG TAB PO SCH ×2 (06:03→17:01)
[2022-11-14 06:07] LABS: Glucose,Whole Blood 220 mg/dL (70-110)
[2022-11-14] MEDS: INSULIN ASPART (NovoLOG) 100 UNIT/ML VIAL SQ SCH ×6 (06:08→21:11)
[2022-11-14 08:10] LABS: Anisocytosis Slight; Basophils % (A) 0 %; Eosinophils % (A) 0 %; HCT 33.6 % (34.0-46.0); HGB 10.8 gm/dL (11.4-16.0); Hypochromasia Slight; Lymphocytes % (A) 8 %; MCH 32.8 pg (25.0-35.0); MCHC 32.2 g/dL (31.0-37.0); MCV 101.8 fL (80.0-100.0); Macrocytosis Moderate; Mean Platelet Volume 7.8; Monocytes # (A) 0.4 k/uL (0-1.0); Monocytes % (A) 4 %; Neutrophils # (A) 10.9 k/uL (1.3-7.7); Neutrophils % (A) 88 %; Platelet Count 234 k/uL (150-450); WBC 12.4 k/uL (3.8-10.6)
[2022-11-14] MEDS: HYDROCORTISONE SUCCINATE 100 MG/2 ML VIAL IV SCH ×2 (08:25→16:09)
[2022-11-14] MEDS: FAMOTIDINE 20 MG TAB PO SCH (08:26)
[2022-11-14] MEDS: NYSTATIN 100,000 UNIT/ML SUSP 500,000 UNIT/5 ML CUP PO SCH ×4 (08:26→21:12)
[2022-11-14] MEDS: METOPROLOL TARTRATE 12.5 MG TAB PO SCH ×2 (08:26→21:09)
[2022-11-14] MEDS: HEPARIN SODIUM,PORCINE/PF 5,000 UNIT/0.5 ML SYRINGE SQ SCH ×2 (08:26→21:09)
[2022-11-14] MEDS: BENZONATATE 100 MG CAP PO SCH ×3 (08:26→21:09)
[2022-11-14] MEDS: AMIODARONE 200 MG TAB PO SCH ×2 (08:26→21:12)
[2022-11-14] MEDS: DEMECLOCYCLINE 150 MG TAB PO SCH ×2 (08:27→21:12)
[2022-11-14] MEDS: FLUTICASONE 50MCG/SPRAY NASAL 16GM EA NOSTRIL SCH ×2 (08:28→21:09)
[2022-11-14] MEDS: FLUCONAZOLE 150 MG TAB PO SCH (08:28)
[2022-11-14 08:31] LABS: African American GFR (CKD) 49 (>60 ml/min/1.73 sqM); Anion Gap 9 mmol/L; Blood Urea Nitrogen 45 mg/dL (7-17); Calcium 8.7 mg/dL (8.4-10.2); Carbon Dioxide 26 mmol/L (22-30); Chloride 90 mmol/L (98-107); Glucose 159 mg/dL (74-99); Magnesium 2.3 mg/dL (1.6-2.3); Non-African American GFR(CKD) 43 (>60 ml/min/1.73 sqM); Sodium 125 mmol/L (137-145)
--- NOTE | 2022-11-14 08:40 | P.PN ---
Subjective Patient is seen for f/u for hyponatremia secondary to SIADH Status post Samsca. Patient is also maintained on demeclocycline. Urine osmolality was high at 535 Sodium decreased to 125 today. Samsca was given later on last night. Expect sodium to improve later on today. Creatinine at 1.39 Patient does not like to fluid restriction but is trying to be compliant. Objective - Vital Signs Vital signs: Vital Signs Temp 97.5 F L 11/13/22 20:00 Pulse 88 11/14/22 04:10 Resp 18 11/14/22 04:00 BP 105/70 11/14/22 04:00 Pulse Ox 100 11/14/22 04:00 FiO2 Intake & Output 11/13/22 11/14/22 11/14/22 18:59 06:59 18:59 Intake Total 240 120 Output Total 400 200 Balance -160 -80 Weight 85.8 kg Intake: Oral 240 120 Output: Urine 400 200 Other: Voiding Method Toilet Toilet - Exam Awake , comfortable, no acute distress. A and O x3 Lungs show decreased breath sounds right lung CVS S1 and S2 Extremities show trace edema. [employer] exam is grossly intact. - Labs CBC & Chem 7: 11/14/22 06:51 11/14/22 06:51 Labs: Abnormal Lab Results - Last 24 Hours (Table) 11/13/22 11/13/22 11/13/22 Range/Units 06:12 06:12 11:42 WBC 13.7 H (3.8-10.6) k/uL RBC 3.27 L (3.80-5.40) m/uL Hgb 10.8 L (11.4-16.0) gm/dL Hct 33.7 L (34.0-46.0) % MCV 103.0 H (80.0-100.0) fL RDW 16.8 H (11.5-15.5) % Neutrophils # 12.3 H (1.3-7.7) k/uL Sodium 128 L (137-145) mmol/L Chloride 94 L (98-107) mmol/L BUN 46 H (7-17) mg/dL Creatinine 1.25 H (0.52-1.04) mg/dL Glucose 177 H (74-99) mg/dL POC Glucose (mg/dL) 294 H (70-110) mg/dL 11/13/22 11/13/22 11/14/22 Range/Units 16:41 20:06 06:06 WBC (3.8-10.6) k/uL RBC (3.80-5.40) m/uL Hgb (11.4-16.0) gm/dL Hct (34.0-46.0) % MCV (80.0-100.0) fL RDW (11.5-15.5) % Neutrophils # (1.3-7.7) k/uL Sodium (137-145) mmol/L Chloride (98-107) mmol/L BUN (7-17) mg/dL Creatinine (0.52-1.04) mg/dL Glucose (74-99) mg/dL POC Glucose (mg/dL) 168 H 281 H 220 H (70-110) mg/dL 11/14/22 11/14/22 Range/Units 06:51 06:51 WBC 12.4 H (3.8-10.6) k/uL RBC 3.30 L (3.80-5.40) m/uL Hgb 10.8 L (11.4-16.0) gm/dL Hct 33.6 L (34.0-46.0) % MCV 101.8 H (80.0-100.0) fL RDW 17.0 H (11.5-15.5) % Neutrophils # 10.9 H (1.3-7.7) k/uL Sodium 125 L (137-145) mmol/L Chloride 90 L (98-107) mmol/L BUN 45 H (7-17) mg/dL Creatinine 1.39 H (0.52-1.04) mg/dL Glucose 159 H (74-99) mg/dL POC Glucose (mg/dL) (70-110) mg/dL Microbiology - Last 24 Hours (Table) 11/11/22 13:40 Gram Stain - Preliminary Pleural Fluid Body Fluid Culture - Preliminary Assessment and Plan Assessment: 1. Hyponatremia, currently euvolemic to mildly hypervolemic. 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 Urine osmolality 535. Receiving Samsca daily. Patient is also maintained on demeclocycline. 2. Metastatic ovarian cancer with metastases to the lungs and pericardial effusion, status post pericardial window 3. New onset paroxysmal atrial flutter now in sinus rhythm 4. Acute hypoxic respiratory failure associated with significant involvement of the right lung with tumor and near occlusion of the bronchus. Significant right pleural effusion noted, s/p thoracentesis. 5. Acute kidney injury secondary to NSAIDs in the setting of hypotension, improving. Plan: Repeat sodium this afternoon. Patient received the Samsca late last night therefore expect sodium to improve later on today. Continue with fluid restriction. She is quite dependent on the Samsca. Increase demeclocycline.
[2022-11-14] MEDS: BUDESONIDE 1 MG/2 ML NEBU INHALATION SCH ×2 (09:09→20:29)
[2022-11-14] MEDS: FORMOTEROL FUMARATE 20 MCG/2 ML NEBU INHALATION SCH ×2 (09:09→20:29)
--- NOTE | 2022-11-14 09:13 | P.PN ---
Subjective Progress Note Date: 11/13/22 This is a patient of Dr Velazquez who has been hospitalized secondary metastatic ovarian cancer and found to have pericardial effusion and pleural effusion. Patient underwent bronchoscopy and found to have endobronchial lesion and started on palliative radiation to receive 2nd treatment today. Underwent right sided thoracentesis which was bloody in nature and currently pending pathology. Patient remains on 15L hi flow cannula and is tearful about current diagnosis as she has had lengthy hospital stay at 14 days. Continues on IV cefazolin for staph aureas positive sputum culture, IV solu-cortef. Patient received a dose of samsca yesterday and sodium is up to 130. White count down to 15.3, hemoglobin s table at 10.9. 11/13/2022 Patient is evaluated today sitting up in chair. Daughter at bedside. Patient started on DVT prophylaxis with subcu heparin refusing mechanical prophylaxis doesn't want SCDs. Patient continues on 3L of oxygen with humidification and reports significant sinus congestion and stuffy crusty nose. Using flonase and will add deep sea nasal spray and can use thin coating of ayr saline gel with a qtip to moisten the nasal passages. Claritin as needed has been added as well. Patient remains on duobens IV solucortef and IV cefazolin. Pathology from thoracentesis is pending. Blood pressure emains low 100s high 90s systolic and continues on midodrine BID. patient feels progressively weak and unable to tolerate ambulation for long distances. Had a BM this morning. Review of Systems Constitutional: Reports fatigue denied any fever. Cardio vascular: denied any chest pain, palpitations Gastrointestinal: denied any nausea, vomiting, diarrhea Pulmonary: Reports shortness of breath Neurologic denied any new focal deficits All inpatient medications were reviewed and appropriate changes in these medications as dictated in the interval history and assessment and plan. PHYSICAL EXAMINATION: GENERAL: The patient is alert and oriented x3, not in any acute distress. Well d eveloped, well nourished. HEENT: Pupils are round and equally reacting to light. EOMI. No scleral icterus. No conjunctival pallor. Normocephalic, atraumatic. No pharyngeal erythema. No thyromegaly. CARDIOVASCULAR: S1 and S2 present. No murmurs, rubs, or gallops. PULMONARY: Scattered wheezing right lung left lung diminished. ABDOMEN: Soft, nontender, nondistended, normoactive bowel sounds. No palpable organomegaly. MUSCULOSKELETAL: No joint swelling or deformity. EXTREMITIES: No cyanosis, clubbing, or pedal edema. NEUROLOGICAL: Gross neurological examination did not reveal any focal deficits. Generalized weakness SKIN: No rashes. Assessment Metastatic ovarian cancer with lung involvement and diffuse thoracic adenopathy Acute hypoxic respiratory failure secondary to bilateral pleural effusions and near complete occlusion of the right upper lobe s/p right sided thoracentesis Endobrachial lesion initiated on palliative radiation Positive sputum culture for staph aureus on IV cefazolin History of malignant pericardial effusion s/p pericardial window Bronchospasm Oral thrush Atrial flutter, paroxysmal Hyponatremia likely due to SIADH GI prophylaxis Plan Patient to continue on IV antibiotics and IV solu-cortef Pathology pending from the thoracentesis Initiated on palliative radiation Patient is continued on fluid restriction and s/p samsca x1, sodium improving overal Patient is continued on bowel regimen and increasing activity as tolerated Recommending to add saline spray and claritin as needed for sinus congestion and dry nasal passages F/U labs in AM PT OT has been consulted. The impression and plan of care has been dictated by Alea Heaton Nurse Practitioner as directed. Dr. Lynn MD I have performed a history and physical examination and medical decision making of this patient, discussed the same with the dictator, and agree with the dictators assessment and plan as written, documented as a scribe. Based on total visit time, I have performed more than 50% of this visit. Objective - Vital Signs Vital signs: Vital Signs Temp 97.5 F L 11/13/22 20:00 Pulse 88 11/14/22 04:10 Resp 18 11/14/22 04:00 BP 105/70 11/14/22 04:00 Pulse Ox 100 11/14/22 04:00 FiO2 Intake & Output 11/13/22 11/14/22 11/14/22 18:59 06:59 18:59 Intake Total 240 120 Output Total 400 200 Balance -160 -80 Weight 85.8 kg Intake: Oral 240 120 Output: Urine 400 200 Other: Voiding Method Toilet Toilet - Labs CBC & Chem 7: 11/14/22 06:51 11/14/22 06:51 Labs: Abnormal Lab Results - Last 24 Hours (Table) 07/06/0711/13/22 11/13/22 Range/Units 06:12 06:12 11:42 WBC 13.7 H (3.8-10.6) k/uL RBC 3.27 L (3.80-5.40) m/uL Hgb 10.8 L (11.4-16.0) gm/dL Hct 33.7 L (34.0-46.0) % MCV 103.0 H (80.0-100.0) fL RDW 16.8 H (11.5-15.5) % Neutrophils # 12.3 H (1.3-7.7) k/uL Sodium 128 L (137-145) mmol/L Chloride 94 L (98-107) mmol/L BUN 46 H (7-17) mg/dL Creatinine 1.25 H (0.52-1.04) mg/dL Glucose 177 H (74-99) mg/dL POC Glucose (mg/dL) 294 H (70-110) mg/dL 11/13/22 11/13/22 11/14/22 Range/Units 16:41 20:06 06:06 WBC (3.8-10.6) k/uL RBC (3.80-5.40) m/uL Hgb (11.4-16.0) gm/dL Hct (34.0-46.0) % MCV (80.0-100.0) fL RDW (11.5-15.5) % Neutrophils # (1.3-7.7) k/uL Sodium (137-145) mmol/L Chloride (98-107) mmol/L BUN (7-17) mg/dL Creatinine (0.52-1.04) mg/dL Glucose (74-99) mg/dL POC Glucose (mg/dL) 168 H 281 H 220 H (70-110) mg/dL 11/14/22 11/14/22 Range/Units 06:51 06:51 WBC 12.4 H (3.8-10.6) k/uL RBC 3.30 L (3.80-5.40) m/uL Hgb 10.8 L (11.4-16.0) gm/dL Hct 33.6 L (34.0-46.0) % MCV 101.8 H (80.0-100.0) fL RDW 17.0 H (11.5-15.5) % Neutrophils # 10.9 H (1.3-7.7) k/uL Sodium 125 L (137-145) mmol/L Chloride 90 L (98-107) mmol/L BUN 45 H (7-17) mg/dL Creatinine 1.39 H (0.52-1.04) mg/dL Glucose 159 H (74-99) mg/dL POC Glucose (mg/dL) (70-110) mg/dL Microbiology - Last 24 Hours (Table) 11/11/22 13:40 Gram Stain - Preliminary Pleural Fluid Body Fluid Culture - Preliminary
[2022-11-14] MEDS ORDERED: DEXTROSE 50% SYRINGE 50 ML IVP PRN ×2 (09:15)
[2022-11-14] MEDS ORDERED: TOLVAPTAN 15 MG TABLET PO ONE ×2 (09:30→20:00)
[2022-11-14 12:07] LABS: Glucose,Whole Blood 301 mg/dL (70-110)
--- NOTE | 2022-11-14 12:38 | P.PN ---
Subjective Progress Note Date: 11/14/22 Principal diagnosis: Metastatic ovarian cancer to lungs 57-year-old female with a history of metastatic ovarian carcinoma, who was seen in the emergency department, on October 30, complaining of shortness of breath, difficulty breathing, cough, chest congestion, and occasional phlegm production. She states that when she weaned herself off the prednisone, her respiratory complaints became worse. I saw her in consultation, September of this year. The patient previously was thought to have pneumonitis, secondary to her chemotherapeutic agent. Currently, the patient is on 2 L of nasal oxygen, with saturations in the mid 90s. She does not appear to be particularly short of breath, does not have any conversational dyspnea, or use of accessory muscles. The patient was given breathing treatments, corticosteroids, and antibiotics. The patient's chest x-ray showed cardiomegaly, mild pulmonary vascular congestion. CT angiogram that was performed, was negative for pulmonary embol ism, showed small bilateral pleural effusions, as well as some upper abdominal lymphadenopathy, and a right middle lobe pulmonary nodule. White count is 8.1, hemoglobin 10, hematocrit 31.3, with a platelet count of 210,000. D-dimer was elevated at 1.85. Sodium 128, potassium 4.3, chlorides 96, CO2 22, BUN 9, creatinine 0.58. The rest of the comprehensive metabolic profile is essentially normal. On today's evaluation of 11/01/2022, the patient is feeling slightly better compared to yesterday. She remains on steroids. The exact cause for her shortness of breath and persistent cough is not clear. The patient is currently having difficulties in laying down flat because of shortness of breath. 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 The patient was originally diagnosed in 2008 has received multiple treatments, most recently on Zejula started in May 2022 after 7 cycles of Doxil/carboplatin in February 2022 with recent imaging in September 2022 revealing evidence of disease progression who presents for acute dyspnea. She was hospitalized from 10/04/2022 through 10/07/2022 for dyspnea at that time, which was thought to be related to pneumonia. She did discontinue Zejula 3 weeks prior to her admission. On discharge, she was placed on a steroid taper lasting approximately 15 days and did not have any respiratory issues during this time. After completing the steroid taper, she developed increased dyspnea with wheezing. I reviewed the CAT scans of the chest and I I think it'll be worthwhile for this patient to undergo a high- resolution CAT scan of the chest to assess for any parenchymal progression of tumor versus drug-induced pneumonitis and is same time I discussed with her the potential of that having a biopsy. She is receiving IV Solu-Medrol 60 mg every 6 hours for now. The patient's WBC count is at 15.7 with a hemoglobin 9.5. Sodium is at 127. The ends of 20 with a creatinine 0.8. LFTs are within normal limits. On today's evaluation of 11/02/2022, the patient is feeling much better compared to yesterday. Shortness of breath and cough is essentially improving. The patient underwent a HRCT of the chest yesterday and it showed a right upper lobe pulmonary nodule a reflect elevated previously metastatic nodule in addition to somebody some lymphadenopathy not well characterized on this study. The patient had bilateral pleural effusions and evidence of some limited subpleural groundglass pulmonary infiltrates. There is also evidence of bronchial wall thickening and mild bronchiectasis. As such, there is no significant airspace disease. No clear indication of parenchymal lung abnormalities to suggest parenchymal lung invasion with malignancy. No evidence of any active pneumonia at this point in time. The patient remains on IV Solu-Medrol. Blood sugar is elevated at 317. The patient is receiving IV Solu-Medrol and she is receiving 60 mg every 6 hours. She is on insulin by scale coverage. Cough is subsiding. On 11/03/2022, no new complaints and the patient is feeling progressively more improved while being on steroids. Cough and shortness of breath subsiding. The patient is on IV Solu-Medrol 60 mg every 6 hours. The patient is currently on room air oxygen with a pulse ox of 96% the blood work shows a WBC count of 13.4 with a hemoglobin of 10.7 and a platelet count of 278. BUN is at 29 with a creatinine of 0.8 his sodiums of 130. Glucose at 228. The blood cultures are essentially negative. 11/02/2022, seeing the patient for a follow-up. Overall condition is progressively improving. Less short of breath as bronchospastic and coughing has subsided significantly. The patient remains on IV Solu-Medrol. I'm going to go ahead and switch the patient to oral prednisone thousand 80 mg by mouth daily. She'll be also taken off the IV Lasix and switch to oral Lasix. No other new complaints otherwise for now. The WBC count is at 10 point with a hemoglobin of 10.7 and platelet count of 272. BUN is 28 with a creatinine of 0.8 and a sodium level is at 131. Blood sugars at 224. No other issues otherwise for now. The patient self reports that she is improving. No fever. No chills. No other complaints. On today's evaluation of 11/05/2022, patient is short of breath and physical remains on 2 L of oxygen by nasal cannula. She is quite uncomfortable. She remains on oral prednisone 80 mg by mouth daily. She is also on Lasix 40 mg by mouth daily. There is no interval worsening in oxygenation. Clinically, the patient is feeling worse. Chest x-ray findings of essentially stable. There is some lower lobe increased interstitial markings bilaterally. Some limited changes also in the upper lobes. WBC count 16, hemoglobin is at 10.7 and a platelet count is at 282. BUN is 26 with a creatinine of 0.9 and his sodium level is at 129. 11/06/2022, patient remains on 2 L of oxygen by nasal cannula. No new complaints. Sodium levels of 127 with patient's potassium levels at 3.4 with a BUN of 22 and a creatinine of 0.9. The the hemoglobin is at 10.8. No other new complaints otherwise for now. Having episodes of cough and this has subsided since yesterday. 11/07/2022, the patient remains on 2 L. His overall respiratory status is un changed and the patient is not having any interval worsening or improvement in her breathing. She continues to have cough especially with deep breathing. Sodium levels of 127. Furthermore, overnight, the patient went to a coughing spell and she went into atrial flutter flutter that lasted for a total of 1 hour and the patient converted into normal sinus rhythm following that. Cardiology has been consulted. The patient was started on amiodarone 200 mg by mouth twice a day and metoprolol 12.5 mg by mouth twice a day. Sodium is at 127, BUN is at 60 with a creatinine of 0.7 and a white cell count is at 14.3. Reevaluated today on 11/08/2022, patient continues to have intermittent episodes of cough, almost continuous, continues to have shortness of breath, I discussed her condition with Dr. Farfan earlier today, and recommended that we proceed with bronchoscopy this was done today, please refer to the full operative report, patient was found to have significant endobronchial tumor involving the right upper lobe, right lower lobe, and these were both almost nearly occluded there is also an endobronchial tumor in the right middle lobe, multiple biopsies were done. Findings were discussed with the . We will ask oncology to that the patient, may also involve radiation oncology labs today showed relatively normal CBC with beverage, 15.3 hemoglobin 10.4 sodium remains low at 124, patient may be developing a picture of SIADH. Reevaluated today on 11/09/2022, is at bedside, patient is doing better, continues to have intermittent cough and shortness of breath. Today I updated the patient on the findings noted on her last bronchoscopy from yesterday. Patient was found to have significant endobronchial pathology with right upper lobe completely occluded with endobronchial tumor, right lower lobe is also some totally occluded with extrinsic compression/tumor involving the right lower lobe bronchus and her right middle lobe was found to have a small endobronchial tumor in the medial wall of the medial segment of the right middle lobe. Clearly we are most likely dealing with metastatic ovarian cancer, biopsies have been taken and results of which are pending. In the meantime the patient seems to be developing worsening hyponatremia and I believe this is SIADH unless proven otherwise. Patient needs to be seen by oncology and possibly by radiation oncology for further input. Patient does usually follow-up with Dr. Thibodeaux/oncologist liz at [facility] in [place], and if it is felt by our oncologist the need to transfer the patient to her oncologist that would be appropriate. The overall picture does not look very promising. Reevaluated today on 11/10/22, patient is basically about the same. Continues to have cough shortness of breath, patient was seen by oncology, she was also seen by nephrology, and she is being treated for SIADH and hyponatremia. Overall no major change in the last few days, today I will recommend evaluation by radia ti oncology to determine whether radiation would be an option for her significant endobronchial disease involving the right upper lobe and right lower lobe as well as right middle lobe. Patient was seen by oncology and her condition is to be discussed between our oncologist and her main oncologist at [facility]/Dr. Thibodeaux. Reevaluated today on 11/11/2022, patient is about the same, continues to have cough and shortness. Had a long discussion with Dr. Richey yesterday regarding case, and he is planning to radiation therapy. In the meantime he showed me the CT of the chest which was done prior, and the patient seems to be developing bilateral pleural effusions, right more so on the left, I would recommend an ultrasound of the chest today, and the fluid is large enough would proceed with a right-sided thoracentesis mostly for diagnostic and therapeutic purposes. WBC count today is 17.5 hemoglobin is 10.6 sodium is up to 126. BUN is 53 creatinine 1.84. Patient is on fluid restriction, she is also on tolvaptan and she remains on demeclocycline. Her hydrocortisone dose will be cut down to 50 mg every 8 hours Patient was reevaluated today on 11/12/2022, patient continues to have cough and shortness of breath, had radiation treatment yesterday, she had right-sided thor acentesis yesterday, and I drained about 1000 mL of serosanguineous pleural effusion most likely malignant unless for otherwise. Cytology is pending. The fluid is exudative in nature, has LDH of 231 and a relatively elevated protein of 3040. Cytology is pending. Looking at the chest x-ray from yesterday, the left-sided pleural effusion is rather small, and I'm not recommending thoracentesis on the left pleural effusion at this point. Seems to be much smaller than the right side. Not to mention, awaiting cytology from the right- sided pleural effusion and we'll address that accordingly. Patient was reevaluated today on 11/13/2022, patient is mostly complaining of generalized weakness, fatigue, shortness of breath upon any activity, and weakness more pronounced than ever. Hence I'm recommending a Cortrosyn stimulation test on this patient patient has been on stress doses of hydrocorti sone all along. Sodium is better, her labs are improving, cytology from the pleural effusion is pending biopsy results from the endobronchial tumors are pending patient had radiation already by Dr. Richey. Her labs today showed WBC count of 15.3 hemoglobin 10.9 sodium is 130 renal profile is improving BUN is 48 creatinine 1.47 Reevaluated today on 11/14/2022, patient is on 2 L nasal cannula O2 sats is on the percent. Feeling a bit better, able to take deeper breaths today compared to the last few days. However her sodium is down to 125, being addressed by nephrology. Remained generally weak. WBC 12.4 hemoglobin 10.8. BUN is 45 creatinine down to 1.39. Objective - Vital Signs Vital signs: Vital Signs Temp 97.7 F 11/14/22 08:25 Pulse 88 11/14/22 09:36 Resp 18 11/14/22 08:25 BP 108/71 11/14/22 08:25 Pulse Ox 100 11/14/22 09:13 FiO2 Intake & Output 11/13/22 11/14/22 11/14/22 18:59 06:59 18:59 Intake Total 240 120 Output Total 400 200 Balance -160 -80 Weight 85.8 kg Intake: Oral 240 120 Output: Urine 400 200 Other: Voiding Method Toilet Toilet Toilet - Exam Physical Exam: Revealed 57-year-old female in no distress on on 2 L nasal cannula with O2 saturation 100% Head: Atraumatic, normocephalic. HEENT:[Neck is supple.] [No neck masses.] [No thyromegaly.] [No JVD.] Chest: Diminished breath sound bilaterally no rhonchi and no wheezes patient seems to cough with every deep breath she takes. Cardiac Exam: [Normal S1 and S2, no S3 gallop, no murmur.] Abdomen: [Soft, nontender, no megaly, no rebound, no guarding, normal bowel sounds.] Extremities: [No clubbing, 1 + bipedal edema, no cyanosis.] Neurological Exam: [No focal neurologic deficit.] Alert oriented 3. Psychiatric: Normal mood affect and normal mental status examination. Skin: No rashes - Labs CBC & Chem 7: 11/14/22 06:51 11/14/22 06:51 Labs: Abnormal Lab Results - Last 24 Hours (Table) 11/13/22 11/13/22 11/14/22 Range/Units 16:41 20:06 06:06 WBC (3.8-10.6) k/uL RBC (3.80-5.40) m/uL Hgb (11.4-16.0) gm/dL Hct (34.0-46.0) % MCV (80.0-100.0) fL RDW (11.5-15.5) % Neutrophils # (1.3-7.7) k/uL Sodium (137-145) mmol/L Chloride (98-107) mmol/L BUN (7-17) mg/dL Creatinine (0.52-1.04) mg/dL Glucose (74-99) mg/dL POC Glucose (mg/dL) 168 H 281 H 220 H (70-110) mg/dL 11/14/22 11/14/22 11/14/22 Range/Units 06:51 06:51 12:05 WBC 12.4 H (3.8-10.6) k/uL RBC 3.30 L (3.80-5.40) m/uL Hgb 10.8 L (11.4-16.0) gm/dL Hct 33.6 L (34.0-46.0) % MCV 101.8 H (80.0-100.0) fL RDW 17.0 H (11.5-15.5) % Neutrophils # 10.9 H (1.3-7.7) k/uL Sodium 125 L (137-145) mmol/L Chloride 90 L (98-107) mmol/L BUN 45 H (7-17) mg/dL Creatinine 1.39 H (0.52-1.04) mg/dL Glucose 159 H (74-99) mg/dL POC Glucose (mg/dL) 301 H (70-110) mg/dL Microbiology - Last 24 Hours (Table) 11/11/22 13:40 Gram Stain - Preliminary Pleural Fluid Body Fluid Culture - Preliminary Assessment and Plan Assessment: Impression: Metastatic ovarian cancer with significant involvement of the right upper lobe and right middle lobe as well as right lower lobe Acute hypoxic respiratory failure secondary to above Diffuse thoracic adenopathy secondary to metastatic ovarian cancer History of malignant pericardial effusion requiring a pericardial window Paroxysmal atrial flutter Hyponatremia secondary to SIADH Positive sputum cultures for presumptive staph aureus, on cefazolin Status post right sided thoracentesis, cytology is pending on the pleural effusion which was exudative in nature. Recommendation: Cortrosyn stimulation test is pending Continue oxygen and titrate accordingly Awaiting results from her endobronchial biopsies and from pleural effusion cytology Continue radiation treatment as per Dr. Richey on the case. Continue present supportive care measures Fluid restriction for SIADH Continue cefazolin repeat chest x-ray in a Continue present supportive care measures for now, We will continue to follow Time with Patient: Less than 30
--- NOTE | 2022-11-14 13:45 | P.PN ---
Subjective Progress Note Date: 11/14/22 This is a patient of Dr Velazquez who has been hospitalized secondary metastatic ovarian cancer and found to have pericardial effusion and pleural effusion. Patient underwent bronchoscopy and found to have endobronchial lesion and started on palliative radiation to receive 2nd treatment today. Underwent right sided thoracentesis which was bloody in nature and currently pending pathology. Patient remains on 15L hi flow cannula and is tearful about current diagnosis as she has had lengthy hospital stay at 14 days. Continues on IV cefazolin for staph aureas positive sputum culture, IV solu-cortef. Patient received a dose of samsca yesterday and sodium is up to 130. White count down to 15.3, hemoglobin s table at 10.9. 11/13/2022 Patient is evaluated today sitting up in chair. Daughter at bedside. Patient started on DVT prophylaxis with subcu heparin refusing mechanical prophylaxis doesn't want SCDs. Patient continues on 3L of oxygen with humidification and reports significant sinus congestion and stuffy crusty nose. Using flonase and will add deep sea nasal spray and can use thin coating of ayr saline gel with a qtip to moisten the nasal passages. Claritin as needed has been added as well. Patient remains on duobens IV solucortef and IV cefazolin. Pathology from thoracentesis is pending. Blood pressure emains low 100s high 90s systolic and continues on midodrine BID. patient feels progressively weak and unable to tolerate ambulation for long distances. Had a BM this morning. 11/14/2022 Patient remains on the step down unit. Continues on IV cefazolin for staph aureas in the sputum. Patient reports feeling less short of breath today on 2-3L nasal cannula increasing up to 5L when ambulating. Unable to tolerate much activity. Reports constipation which isn't unusual for her. Continues on fluid restriction 1200 cc in 24 hours. Patient having a hard time with this wanting to increase fluid intake to help with the constipation. Was started on senekot HS and will add dulcolax suppository as well. White count continues to improved to 12.4 today, hgb 10.8. Sodium down to 125, kidney function slightly worse BUN 45 and creatinine of 1.39. Blood glucose 200s. Review of Systems Constitutional: Reports fatigue denied any fever. Cardio vascular: denied any chest pain, palpitations Gastrointestinal: denied any nausea, vomiting, diarrhea, reports constipation Pulmonary: Reports shortness of breath worse with exertion Neurologic denied any new focal deficits All inpatient medications were reviewed and appropriate changes in these medications as dictated in the interval history and assessment and plan. PHYSICAL EXAMINATION: GENERAL: The patient is alert and oriented x3, not in any acute distress. Well developed, well nourished. HEENT: Pupils are round and equally reacting to light. EOMI. No scleral icterus. No conjunctival pallor. Normocephalic, atraumatic. No pharyngeal erythema. No thyromegaly. CARDIOVASCULAR: S1 and S2 present. No murmurs, rubs, or gallops. PULMONARY: Improved aeration overall, Right lung diminished. ABDOMEN: Soft, nontender, nondistended, normoactive bowel sounds. No palpable organomegaly. MUSCULOSKELETAL: No joint swelling or deformity. EXTREMITIES: No cyanosis, clubbing, or pedal edema. NEUROLOGICAL: Gross neurological examination did not reveal any focal deficits. Generalized weakness SKIN: No rashes. Assessment Metastatic ovarian cancer with lung involvement and diffuse thoracic adenopathy Acute hypoxic respiratory failure secondary to bilateral pleural effusions and near complete occlusion of the right upper lobe s/p right sided thoracentesis Endobrachial lesion initiated on palliative radiation Positive sputum culture for staph aureus on IV cefazolin Steroid induced hyperglycemia Hyponatremia due to SIADH Acute kidney injury History of malignant pericardial effusion s/p pericardial window Bronchospasm Oral thrush Atrial flutter, paroxysmal GI prophylaxis DVT prophylaxis: Subcu heparin Plan Patient to continue on IV antibiotics and IV solu-cortef Cytology pending from the thoracentesis, bronchial washings and lung biopsy pending. Initiated on palliative radiation Patient is continued on fluid restriction 1200 cc and s/p samsca x 2 doses Patient is continued on bowel regimen and increasing activity as tolerated Continue accuchecks ACHS and scheduled insulin and levemir have been added for tighter glycemic control F/U labs in AM PT OT has been consulted. Plan for chest xray f/u in AM The impression and plan of care has been dictated by Alea Heaton Nurse Practitioner as directed. Dr. Lynn MD I have performed a history and physical examination and medical decision making of this patient, discussed the same with the dictator, and agree with the dictators assessment and plan as written, documented as a scribe. Based on total visit time, I have performed more than 50% of this visit. Objective - Vital Signs Vital signs: Vital Signs Temp 97.5 F L 11/13/22 20:00 Pulse 88 11/14/22 04:10 Resp 18 11/14/22 04:00 BP 105/70 11/14/22 04:00 Pulse Ox 100 11/14/22 04:00 FiO2 Intake & Output 11/13/22 11/14/22 11/14/22 18:59 06:59 18:59 Intake Total 240 120 Output Total 400 200 Balance -160 -80 Weight 85.8 kg Intake: Oral 240 120 Output: Urine 400 200 Other: Voiding Method Toilet Toilet - Labs CBC & Chem 7: 11/14/22 06:51 11/14/22 06:51 Labs: Abnormal Lab Results - Last 24 Hours (Table) 11/13/22 11/13/22 11/13/22 Range/Units 06:12 06:12 11:42 WBC 13.7 H (3.8-10.6) k/uL RBC 3.27 L (3.80-5.40) m/uL Hgb 10.8 L (11.4-16.0) gm/dL Hct 33.7 L (34.0-46.0) % MCV 103.0 H (80.0-100.0) fL RDW 16.8 H (11.5-15.5) % Neutrophils # 12.3 H (1.3-7.7) k/uL Sodium 128 L (137-145) mmol/L Chloride 94 L (98-107) mmol/L BUN 46 H (7-17) mg/dL Creatinine 1.25 H (0.52-1.04) mg/dL Glucose 177 H (74-99) mg/dL POC Glucose (mg/dL) 294 H (70-110) mg/dL 11/13/22 11/13/22 11/14/22 Range/Units 16:41 20:06 06:06 WBC (3.8-10.6) k/uL RBC (3.80-5.40) m/uL Hgb (11.4-16.0) gm/dL Hct (34.0-46.0) % MCV (80.0-100.0) fL RDW (11.5-15.5) % Neutrophils # (1.3-7.7) k/uL Sodium (137-145) mmol/L Chloride (98-107) mmol/L BUN (7-17) mg/dL Creatinine (0.52-1.04) mg/dL Glucose (74-99) mg/dL POC Glucose (mg/dL) 168 H 281 H 220 H (70-110) mg/dL 11/14/22 11/14/22 Range/Units 06:51 06:51 WBC 12.4 H (3.8-10.6) k/uL RBC 3.30 L (3.80-5.40) m/uL Hgb 10.8 L (11.4-16.0) gm/dL Hct 33.6 L (34.0-46.0) % MCV 101.8 H (80.0-100.0) fL RDW 17.0 H (11.5-15.5) % Neutrophils # 10.9 H (1.3-7.7) k/uL Sodium 125 L (137-145) mmol/L Chloride 90 L (98-107) mmol/L BUN 45 H (7-17) mg/dL Creatinine 1.39 H (0.52-1.04) mg/dL Glucose 159 H (74-99) mg/dL POC Glucose (mg/dL) (70-110) mg/dL Microbiology - Last 24 Hours (Table) 11/11/22 13:40 Gram Stain - Preliminary Pleural Fluid Body Fluid Culture - Preliminary Assessment and Plan Time with Patient: Less than 30
[2022-11-14 16:25] LABS: Glucose,Whole Blood 162 mg/dL (70-110)
[2022-11-14 20:12] LABS: Glucose,Whole Blood 260 mg/dL (70-110)
[2022-11-14] MEDS: ZYRTEC 10MG TABLET PO SCH (21:09)
[2022-11-14] MEDS: SENNOSIDES-DOCUSATE SODIUM 1 EACH TAB PO SCH (21:09)
[2022-11-14] MEDS: INSULIN DETEMIR (LEVEMIR) 100 UNIT/ML SYR SQ SCH (21:12)
[2022-11-14] MEDS: guaiFENesin-DM 100-10MG/5ML 10 ML CUP PO PRN (21:38)
[2022-11-15] MEDS: HYDROCORTISONE SUCCINATE 100 MG/2 ML VIAL IV SCH ×4 (00:32→23:34)
[2022-11-15] MEDS: IPRATROPIUM-ALBUTEROL 3 ML NEB INHALATION SCH ×6 (04:38→23:00)
[2022-11-15 06:08] LABS: Glucose,Whole Blood 217 mg/dL (70-110)
[2022-11-15] MEDS: INSULIN ASPART (NovoLOG) 100 UNIT/ML VIAL SQ SCH ×7 (06:17→20:45)
[2022-11-15] MEDS: MIDODRINE 5 MG TAB PO SCH ×2 (06:17→16:20)
[2022-11-15] MEDS: FORMOTEROL FUMARATE 20 MCG/2 ML NEBU INHALATION SCH ×2 (08:11→20:04)
[2022-11-15] MEDS: BUDESONIDE 1 MG/2 ML NEBU INHALATION SCH ×2 (08:11→20:04)
--- NOTE | 2022-11-15 08:19 | XR ---
EXAMINATION TYPE: XR chest 1V portable DATE OF EXAM: 11/15/2022 HISTORY: Shortness of breath. COMPARISON: 11/11/2022 TECHNIQUE: Single view of the chest is submitted. FINDINGS: Demonstrated are scattered senescent parenchymal change. Patchy density left lower lobe. Correlate for pneumonia. The heart is stable. Hilar and mediastinal structures are within normal limits. Degenerative changes are seen of the dorsal spine. IMPRESSION: 1. Patchy density left lower lobe. Correlate for pneumonia.
[2022-11-15 08:32] LABS: Anisocytosis Slight; Basophils # (A) 0.1 k/uL (0-0.2); Basophils % (A) 1 %; Eosinophils % (A) 0 %; HGB 10.7 gm/dL (11.4-16.0); Hypochromasia Slight; Lymphocytes % (A) 8 %; MCH 31.6 pg (25.0-35.0); MCHC 31.5 g/dL (31.0-37.0); MCV 100.3 fL (80.0-100.0); Macrocytosis Slight; Mean Platelet Volume 8.1; Monocytes # (A) 0.4 k/uL (0-1.0); Monocytes % (A) 3 %; Neutrophils # (A) 11.4 k/uL (1.3-7.7); Neutrophils % (A) 88 %; Platelet Count 253 k/uL (150-450); Poikilocytosis Slight; RBC 3.39 m/uL (3.80-5.40); RDW 17.4 % (11.5-15.5)
[2022-11-15] MEDS: FLUCONAZOLE 150 MG TAB PO SCH (08:39)
[2022-11-15] MEDS: BENZONATATE 100 MG CAP PO SCH ×3 (08:40→20:40)
[2022-11-15] MEDS: DEMECLOCYCLINE 150 MG TAB PO SCH ×2 (08:40→20:39)
[2022-11-15] MEDS: ALPRAZolam 0.25 MG TAB PO PRN ×2 (08:40→20:40)
[2022-11-15] MEDS: AMIODARONE 200 MG TAB PO SCH ×2 (08:40→20:39)
[2022-11-15] MEDS: METOPROLOL TARTRATE 12.5 MG TAB PO SCH ×2 (08:40→20:40)
[2022-11-15] MEDS: FAMOTIDINE 20 MG TAB PO SCH (08:40)
[2022-11-15] MEDS: guaiFENesin-DM 100-10MG/5ML 10 ML CUP PO PRN ×2 (08:41→21:09)
[2022-11-15] MEDS: HEPARIN SODIUM,PORCINE/PF 5,000 UNIT/0.5 ML SYRINGE SQ SCH ×2 (08:41→20:39)
[2022-11-15] MEDS: FLUTICASONE 50MCG/SPRAY NASAL 16GM EA NOSTRIL SCH ×2 (08:41→20:39)
[2022-11-15] MEDS: NYSTATIN 100,000 UNIT/ML SUSP 500,000 UNIT/5 ML CUP PO SCH ×4 (08:41→20:40)
[2022-11-15 09:00] LABS: African American GFR (CKD) 57 (>60 ml/min/1.73 sqM); Anion Gap 12 mmol/L; Blood Urea Nitrogen 50 mg/dL (7-17); Calcium 8.6 mg/dL (8.4-10.2); Carbon Dioxide 24 mmol/L (22-30); Chloride 88 mmol/L (98-107); Glucose 185 mg/dL (74-99); Non-African American GFR(CKD) 50 (>60 ml/min/1.73 sqM); Potassium 4.2 mmol/L (3.5-5.1); Sodium 124 mmol/L (137-145)
[2022-11-15 09:21] LABS: Glucose,Whole Blood 166 mg/dL (70-110)
--- NOTE | 2022-11-15 10:41 | P.PN ---
Subjective Patient is seen for f/u for hyponatremia secondary to SIADH Receiving Samsca daily. Patient is also maintained on demeclocycline. Urine osmolality was high at 535 Creatinine at 1.22 Patient does not like to fluid restriction but is trying to be compliant. Objective - Vital Signs Vital signs: Vital Signs Temp 97.4 F L 11/15/22 08:35 Pulse 84 11/15/22 08:36 Resp 18 11/15/22 08:35 BP 91/62 11/15/22 08:35 Pulse Ox 100 11/15/22 08:35 FiO2 Intake & Output 11/14/22 11/15/22 11/15/22 18:59 06:59 18:59 Intake Total 1200 270 Output Total 200 300 Balance 1000 -30 Intake: Oral 1200 270 Output: Urine 200 300 Other: Voiding Method Toilet Toilet Toilet - Exam Awake , comfortable, no acute distress. A and O x3 Lungs show decreased breath sounds right lung CVS S1 and S2 Extremities show trace edema. TECHNICAL SERVICE SPECIALIST exam is grossly intact. - Labs CBC & Chem 7: 11/15/22 07:33 11/15/22 07:33 Labs: Abnormal Lab Results - Last 24 Hours (Table) 11/14/22 11/14/22 11/14/22 Range/Units 12:05 15:59 16:23 WBC (3.8-10.6) k/uL RBC (3.80-5.40) m/uL Hgb (11.4-16.0) gm/dL MCV (80.0-100.0) fL RDW (11.5-15.5) % Neutrophils # (1.3-7.7) k/uL Sodium 125 L (137-145) mmol/L Chloride (98-107) mmol/L BUN (7-17) mg/dL Creatinine (0.52-1.04) mg/dL Glucose (74-99) mg/dL POC Glucose (mg/dL) 301 H 162 H (70-110) mg/dL 11/14/22 11/15/22 11/15/22 Range/Units 20:10 06:01 07:33 WBC 13.0 H (3.8-10.6) k/uL RBC 3.39 L (3.80-5.40) m/uL Hgb 10.7 L (11.4-16.0) gm/dL MCV 100.3 H (80.0-100.0) fL RDW 17.4 H (11.5-15.5) % Neutrophils # 11.4 H (1.3-7.7) k/uL Sodium (137-145) mmol/L Chloride (98-107) mmol/L BUN (7-17) mg/dL Creatinine (0.52-1.04) mg/dL Glucose (74-99) mg/dL POC Glucose (mg/dL) 260 H 217 H (70-110) mg/dL 11/15/22 11/15/22 Range/Units 07:33 09:19 WBC (3.8-10.6) k/uL RBC (3.80-5.40) m/uL Hgb (11.4-16.0) gm/dL MCV (80.0-100.0) fL RDW (11.5-15.5) % Neutrophils # (1.3-7.7) k/uL Sodium 124 L (137-145) mmol/L Chloride 88 L (98-107) mmol/L BUN 50 H (7-17) mg/dL Creatinine 1.22 H (0.52-1.04) mg/dL Glucose 185 H (74-99) mg/dL POC Glucose (mg/dL) 166 H (70-110) mg/dL Microbiology - Last 24 Hours (Table) 11/11/22 13:40 Gram Stain - Preliminary Pleural Fluid Body Fluid Culture - Preliminary Assessment and Plan Assessment: 1. Hyponatremia, currently euvolemic to mildly hypervolemic. 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 Urine osmolality 535. Receiving Samsca daily. Patient is also maintained on demeclocycline. 2. Metastatic ovarian cancer with metastases to the lungs and pericardial effusion, status post pericardial window 3. New onset paroxysmal atrial flutter now in sinus rhythm 4. Acute hypoxic respiratory failure associated with significant involvement of the right lung with tumor and near occlusion of the bronchus. Significant right pleural effusion noted, s/p thoracentesis. 5. Acute kidney injury secondary to NSAIDs in the setting of hypotension, improving. Plan: Continue demeclocycline Continue with daily Samsca Maintain fluid restriction Sodium chloride tab today
[2022-11-15] MEDS ORDERED: TOLVAPTAN 30 MG TABLET PO ONE (11:00)
[2022-11-15] MEDS ORDERED: TOLVAPTAN 15 MG TABLET PO ONE (11:15)
--- NOTE | 2022-11-15 11:30 | P.PN ---
Subjective Progress Note Date: 11/15/22 Principal diagnosis: Ovarian cancer. Reevaluated today on 11/11/2022, patient is about the same, continues to have cough and shortness. Had a long discussion with Dr. Richey yesterday regarding case, and he is planning to radiation therapy. In the meantime he showed me the CT of the chest which was done prior, and the patient seems to be developing bilateral pleural effusions, right more so on the left, I would recommend an ultrasound of the chest today, and the fluid is large enough would proceed with a right-sided thoracentesis mostly for diagnostic and therapeutic purposes. WBC count today is 17.5 hemoglobin is 10.6 sodium is up to 126. BUN is 53 creatinine 1.84. Patient is on fluid restriction, she is also on tolvaptan and she remains on demeclocycline. Her hydrocortisone dose will be cut down to 50 mg every 8 hours Patient was reevaluated today on 11/12/2022, patient continues to have cough and shortness of breath, had radiation treatment yesterday, she had right-sided thoracentesis yesterday, and I drained about 1000 mL of serosanguineous pleural effusion most likely malignant unless for otherwise. Cytology is pending. The fluid is exudative in nature, has LDH of 231 and a relatively elevated protein of 3040. Cytology is pending. Looking at the chest x-ray from yesterday, the left-sided pleural effusion is rather small, and I'm not recommending thoracentesis on the left pleural effusion at this point. Seems to be much smaller than the right side. Not to mention, awaiting cytology from the right- sided pleural effusion and we'll address that accordingly. Patient was reevaluated today on 11/13/2022, patient is mostly complaining of generalized weakness, fatigue, shortness of breath upon any activity, and weakness more pronounced than ever. Hence I'm recommending a Cortrosyn stimulation test on this patient patient has been on stress doses of hydrocortisone all along. Sodium is better, her labs are improving, cytology from the pleural effusion is pending biopsy results from the endobronchial tumors are pending patient had radiation already by Dr. Richey. Her labs today showed WBC count of 15.3 hemoglobin 10.9 sodium is 130 renal profile is improving BUN is 48 creatinine 1.47 Reevaluated today on 11/14/2022, patient is on 2 L nasal cannula O2 sats is on the percent. Feeling a bit better, able to take deeper breaths today compared to the last few days. However her sodium is down to 125, being addressed by nephrology. Remained generally weak. WBC 12.4 hemoglobin 10.8. BUN is 45 creatinine down to 1.39. Progress note dated 11/15/2022. The patient is seen today in room 355. She is currently on 2 L of oxygen. She 's getting saline at keep vein open. This morning, pathology was still pending. This included pathology on the pleural fluid, as well as on the bronchoscopy, and biopsies. She feels very short of breath, very fatigued and weak. Physical therapy has been ordered for this patient. White count 13, hemoglobin 10.7, hematocrit 34, with a normal platelet count. Sodium 124, potassium 4.2, chlorides 88, CO2 24, BUN 50, creatinine 1.22. Bronchial washings were positive for staph aureus. Chest x-ray shows some patchy infiltrates, left lower lobe. The patient continues on Ancef. Objective - Vital Signs Vital signs: Vital Signs Temp 97.4 F L 11/15/22 08:35 Pulse 84 11/15/22 08:36 Resp 18 11/15/22 08:35 BP 91/62 11/15/22 08:35 Pulse Ox 100 11/15/22 08:35 FiO2 Intake & Output 11/14/22 11/15/22 11/15/22 18:59 06:59 18:59 Intake Total 1200 270 Output Total 200 300 Balance 1000 -30 Intake: Oral 1200 270 Output: Urine 200 300 Other: Voiding Method Toilet Toilet Toilet - Exam No acute distress, oriented 3. Currently on 2 L. No respiratory distress. No conversational dyspnea. HEENT examination is grossly unremarkable. Mucous membranes are moist. No oral lesions. Neck supple. Full range of motion. No adenopathy thyromegaly or neck vein distention. Cardiovascular examination reveals regular rhythm rate. S1-S2 normal. No S3 or S4. No discernible murmur noted. Heart rate 84 bpm. Lungs reveal scattered rhonchi, particularly in the right lung. Mild expiratory wheezes. No crackles. Saturations are excellent. Abdomen soft bowel sounds are heard. No masses or tenderness. Extremities are intact. No cyanosis clubbing or edema. Skin is without rash or lesion. Neurologic examination is brief but nonfocal. - Labs CBC & Chem 7: 11/15/22 07:11/15/22 07:33 Labs: Abnormal Lab Results - Last 24 Hours (Table) 11/14/22 11/14/22 11/14/22 Range/Units 12:05 15:59 16:23 WBC (3.8-10.6) k/uL RBC (3.80-5.40) m/uL Hgb (11.4-16.0) gm/dL MCV (80.0-100.0) fL RDW (11.5-15.5) % Neutrophils # (1.3-7.7) k/uL Sodium 125 L (137-145) mmol/L Chloride (98-107) mmol/L BUN (7-17) mg/dL Creatinine (0.52-1.04) mg/dL Glucose (74-99) mg/dL POC Glucose (mg/dL) 301 H 162 H (70-110) mg/dL Hemoglobin A1c (<=6.0) % 11/14/22 11/15/22 11/15/22 Range/Units 20:10 06:01 07:33 WBC (3.8-10.6) k/uL RBC (3.80-5.40) m/uL Hgb (11.4-16.0) gm/dL MCV (80.0-100.0) fL RDW (11.5-15.5) % Neutrophils # (1.3-7.7) k/uL Sodium (137-145) mmol/L Chloride (98-107) mmol/L BUN (7-17) mg/dL Creatinine (0.52-1.04) mg/dL Glucose (74-99) mg/dL POC Glucose (mg/dL) 260 H 217 H (70-110) mg/dL Hemoglobin A1c 7.2 H (<=6.0) % 11/15/22 11/15/22 11/15/22 Range/Units 07:33 07:33 09:19 WBC 13.0 H (3.8-10.6) k/uL RBC 3.39 L (3.80-5.40) m/uL Hgb 10.7 L (11.4-16.0) gm/dL MCV 100.3 H (80.0-100.0) fL RDW 17.4 H (11.5-15.5) % Neutrophils # 11.4 H (1.3-7.7) k/uL Sodium 124 L (137-145) mmol/L Chloride 88 L (98-107) mmol/L BUN 50 H (7-17) mg/dL Creatinine 1.22 H (0.52-1.04) mg/dL Glucose 185 H (74-99) mg/dL POC Glucose (mg/dL) 166 H (70-110) mg/dL Hemoglobin A1c (<=6.0) % Microbiology - Last 24 Hours (Table) 11/11/22 13:40 Gram Stain - Preliminary Pleural Fluid Body Fluid Culture - Preliminary Assessment and Plan Assessment: Acute shortness of breath, likely multifactorial, in part related to mild fluid overload/CHF, acute bronchitis with bronchospasm, as well as possible iatrogenic pneumonitis, related to Zejula. Metastatic ovarian carcinoma, with significant endobronchial disease in the right upper lobe, right middle lobe, and right lower lobe, status post bronchoscopy, with pathology currently pending. Paroxysmal atrial flutter. Status post right-sided thoracentesis. Hyponatremia, secondary to SIADH. Staph. aureus, bronchopneumonia/tracheobronchitis, currently on Ancef. Rule out active infection/bronchopneumonia, less likely. Metastatic ovarian carcinoma, diagnosed in 2008, with recurrence. The patient has diffuse adenopathy, both in the abdominal cavity and thoracic cavity. Metastatic pulmonary nodule. History of malignant pericardial effusion, status post pericardial window. Plan: Plan dated 10/31/2022. A pro-calcitonin level will be checked. Currently, the patient's on Pulmicort 1 mg, twice a day, mixed with formoterol, 20 g, twice a day. In addition, the patient's receiving updrafts with albuterol sulfate and ipratropium bromide. The patient is also on Solu-Medrol, 60 mg every 6 hours. Finally, the patient was placed on Rocephin, which was given to her in the emergency department. Labs, x-rays, medications are all reviewed. The patient is also receiving some Lasix, for possible mild fluid overload, although the N-terminal proBNP level was only 443. We will continue to follow the patient and make recommendations along the way. Her respiratory status appears to be relatively stable at this time. Plan dated 11/15/2022. The patient remains on 2 L of oxygen. She's received some radiation to the right chest area, with some improvement in her breathing. Her lung sounds are improved on the right side. The patient is on a fluid restriction for SIADH. She is also receiving treatment for same. Pathology reports, on the bronchoscopy, and cytology reports, on the pleural fluid, are pending. Physical therapy has been ordered for this patient. Labs, x-rays, medications are re viewed. Prognosis is certainly very guarded. Time with Patient: Less than 30
[2022-11-15] MEDS: SODIUM CHLORIDE TAB 1 GM TAB PO SCH ×2 (11:39→20:40)
[2022-11-15 11:52] LABS: Glucose,Whole Blood 204 mg/dL (70-110)
--- NOTE | 2022-11-15 14:41 | P.PN ---
Subjective Progress Note Date: 11/15/22 This is a patient of Dr Velazquez who has been hospitalized secondary metastatic ovarian cancer and found to have pericardial effusion and pleural effusion. Patient underwent bronchoscopy and found to have endobronchial lesion and started on palliative radiation to receive 2nd treatment today. Underwent right sided thoracentesis which was bloody in nature and currently pending pathology. Patient remains on 15L hi flow cannula and is tearful about current diagnosis as she has had lengthy hospital stay at 14 days. Continues on IV cefazolin for staph aureas positive sputum culture, IV solu-cortef. Patient received a dose of samsca yesterday and sodium is up to 130. White count down to 15.3, hemoglobin stable at 10.9. 11/13/2022 Patient is evaluated today sitting up in chair. Daughter at bedside. Patient started on DVT prophylaxis with subcu heparin refusing mechanical prophylaxis doesn't want SCDs. Patient continues on 3L of oxygen with humidification and reports significant sinus congestion and stuffy crusty nose. Using flonase and will add deep sea nasal spray and can use thin coating of ayr saline gel with a qtip to moisten the nasal passages. Claritin as needed has been added as well. Patient remains on duobens IV solucortef and IV cefazolin. Pathology from thoracentesis is pending. Blood pressure emains low 100s high 90s systolic and continues on midodrine BID. patient feels progressively weak and unable to tolerate ambulation for long distances. Had a BM this morning. 11/14/2022 Patient remains on the step down unit. Continues on IV cefazolin for staph aureas in the sputum. Patient reports feeling less short of breath today on 2-3L nasal cannula increasing up to 5L when ambulating. Unable to tolerate much activity. Reports constipation which isn't unusual for her. Continues on fluid restriction 1200 cc in 24 hours. Patient having a hard time with this wanting to increase fluid intake to help with the constipation. Was started on senekot HS and will add dulcolax suppository as well. White count continues to improved to 12.4 today, hgb 10.8. Sodium down to 125, kidney function slightly worse BUN 45 and creatinine of 1.39. Blood glucose 200s. 11/15/2022 Patient is seen and evaluated and follow-up currently sitting up in the chair with family member present. Patient continues on oxygen and continues to report shortness of breath with exertion. Patient continues on IV antibiotics in the form of cefazolin and IV fluconazole was sputum culture showing staph aureus and awaiting repeat cultures from pleural fluid done on paracentesis from 11/11/2022. White count remains elevated at 13 and hemoglobin is 10.7, platelets are 253. Sodium is significantly low at 124 with nephrology following. Kidney functions slightly improved from yesterday with a creatinine of 1.22. Blood sugars remained elevated and will continue to monitor with Accu- Cheks and sliding scale. Hemoglobin A1c was 7.2. Patient remains afebrile denies chest pain or palpitations. Patient reports her lungs feel somewhat improved although continues to report shortness of breath. Patient denies nausea or vomiting and tolerating oral intake. Recommend strongly to continue with fluid restrictions. Chest x-ray shows patchy sheet density left lower lobe correlate for pneumonia. Review of Systems Constitutional: Reports fatigue denied any fever. Cardio vascular: denied any chest pain, palpitations Gastrointestinal: denied any nausea, vomiting, diarrhea, reports constipation Pulmonary: Reports shortness of breath worse with exertion with continued cough Neurologic denied any new focal deficits All inpatient medications were reviewed and appropriate changes in these medications as dictated in the interval history and assessment and plan. Active Medications Hydrocodone Bitart/Acetaminophen (Hydrocodone/Apap 5-325mg 1 Each Tab) 1 each PO Q4HR PRN PRN Reason: Pain Last Admin: 11/09/22 10:00 Dose: 1 each Albuterol/Ipratropium (Ipratropium-Albuterol 3 Ml Neb) 3 ml INHALATION RT-Q2H PRN PRN Reason: Shortness Of Breath Or Wheezing Last Admin: 11/12/22 16:41 Dose: 3 ml Albuterol/Ipratropium (Ipratropium-Albuterol 3 Ml Neb) 3 ml INHALATION RT-Q4H SAMIR Last Admin: 11/15/22 11:39 Dose: 3 ml Alprazolam (Alprazolam 0.25 Mg Tab) 0.25 mg PO Q4HR PRN PRN Reason: Anxiety Last Admin: 11/15/22 08:40 Dose: 0.25 mg Amiodarone HCl (Amiodarone 200 Mg Tab) 200 mg PO BID SAMIR Last Admin: 11/15/22 08:40 Dose: 200 mg Benzonatate (Benzonatate 100 Mg Cap) 200 mg PO TID SAMIR Last Admin: 11/15/22 08:40 Dose: 200 mg Budesonide (Budesonide 1 Mg/2 Ml Nebu) 1 mg INHALATION RT-BID [facility] Last Admin: 11/15/22 08:11 Dose: 1 mg Demeclocycline HCl (Demeclocycline 150 Mg Tab) 300 mg PO BID [facility]; Protocol Last Admin: 11/15/22 08:40 Dose: 300 mg Dextrose/Water (Dextrose 50% Syringe 50 Ml) 25 ml IVP PER PROTOCOL PRN; Protocol PRN Reason: Hypoglycemia Dextrose/Water (Dextrose 50% Syringe 50 Ml) 50 ml IVP PER PROTOCOL PRN; Protoc ol PRN Reason: Hypoglycemia Docusate Sodium (Docusate 100 Mg Cap) 100 mg PO DAILY PRN PRN Reason: Constipation Last Admin: 11/14/22 06:03 Dose: 100 mg Famotidine (Famotidine 20 Mg Tab) 20 mg PO DAILY [facility] Last Admin: 11/15/22 08:40 Dose: 20 mg Fluconazole (Fluconazole 150 Mg Tab) 150 mg PO DAILY [facility]; Protocol Last Admin: 11/15/22 08:39 Dose: 150 mg Fluticasone Propionate (Fluticasone 50mcg/[place] Nasal 16gm) 1 spray EA NOSTRIL BID [facility] Last Admin: 11/15/22 08:41 Dose: 1 spray Formoterol Fumarate (Formoterol Fumarate 20 Mcg/2 Ml Nebu) 20 mcg INHALATION RT-BID [facility] Last Admin: 11/15/22 08:11 Dose: 20 mcg Guaifenesin/Dextromethorphan (Guaifenesin-Dm 100-10mg/5ml 10 Ml Cup) 10 ml PO Q6HR PRN PRN Reason: Cough Last Admin: 11/15/22 08:41 Dose: 10 ml Heparin Sodium (Porcine) (Heparin Sodium,Porcine/Pf 5,000 Unit/0.5 Ml Syringe) 5,000 unit SQ Q12HR SAMIR Last Admin: 11/15/22 08:41 Dose: 5,000 unit Hydrocortisone Sodium Succinate (Hydrocortisone Succinate 100 Mg/2 Ml Vial) 50 mg IV Q8HR SAMIR Last Admin: 11/15/22 08:39 Dose: 50 mg Cefazolin Sodium 1,000 mg/ (Sodium Chloride) 50 mls @ 100 mls/hr IVPB Q8HR [facility]; Protocol Last Admin: 11/15/22 08:40 Dose: 100 mls/hr Insulin Aspart (Insulin Aspart (Novolog) 100 Unit/Ml Vial) 0 unit SQ ACHS [facility]; Protocol Last Admin: 11/15/22 11:56 Dose: 4 unit Insulin Aspart (Insulin Aspart (Novolog) 100 Unit/Ml Vial) 4 unit SQ AC-TID [facility] Last Admin: 11/15/22 11:56 Dose: 4 unit Insulin Detemir (Insulin Detemir (Levemir) 100 Unit/Ml Syr) 6 unit SQ HS [facility] Last Admin: 11/14/22 21:12 Dose: 6 unit Loratadine (Loratadine 10 Mg Tab) 5 mg PO DAILY PRN PRN Reason: Congestion Metoprolol Tartrate (Metoprolol Tartrate 12.5 Mg Tab) 12.5 mg PO BID [facility] Last Admin: 11/15/22 08:40 Dose: 12.5 mg Midodrine (Midodrine 5 Mg Tab) 5 mg PO AC-BID [facility] Last Admin: 11/15/22 06:17 Dose: 5 mg Miscellaneous Information (Potassium Replacement Protocol 1 Each Misc) 1 each MISCELLANE DAILY PRN; Protocol PRN Reason: Per Protocol Nitroglycerin (Nitroglycerin Sl Tabs 0.4 Mg Tab) 0.4 mg SUBLINGUAL Q5M PRN PRN Reason: Chest Pain Zyrtec 10mg Tablet 1 each PO HS [facility] Last Admin: 11/14/22 21:09 Dose: 1 each Nystatin (Nystatin 100,000 Unit/Ml Susp 500,000 Unit/5 Ml Cup) 500,000 unit PO QID [facility]; Protocol Last Admin: 11/15/22 14:26 Dose: Not Given Senna/Docusate Sodium (Sennosides-Docusate Sodium 1 Each Tab) 1 each PO HS [facility] Last Admin: 11/14/22 21:09 Dose: 1 each Sodium Chloride (Sodium Chloride 0.65% Nasal [place] 44 Ml Btl) 2 spray NASAL QID PRN PRN Reason: Dry Nasal Passages Sodium Chloride (Saline Nasal Gel 14.1 Gm Tube) 1 applic NASAL Q6H PRN PRN Reason: Dry Nasal Passages Sodium Chloride (Sodium Chloride Tab 1 Gm Tab) 1 gm PO BID [facility] Last Admin: 11/15/22 11:39 Dose: 1 gm PHYSICAL EXAMINATION: GENERAL: The patient is alert and oriented x3, obese. Well developed, well dawn shed. HEENT: Pupils are round and equally reacting to light. EOMI. No scleral icterus. No conjunctival pallor. Normocephalic, atraumatic. No pharyngeal erythema. No thyromegaly. CARDIOVASCULAR: S1 and S2 muffled PULMONARY: Improved aeration overall, Right lung diminished. Scattered rhonchi noted. ABDOMEN: Soft, obese, nontender, nondistended, normoactive bowel sounds. No palpable organomegaly. MUSCULOSKELETAL: No joint swelling or deformity. EXTREMITIES: No cyanosis, clubbing, or pedal edema. NEUROLOGICAL: Gross neurological examination did not reveal any focal deficits. Generalized weakness SKIN: No rashes. Assessment: Metastatic ovarian cancer with lung involvement and diffuse thoracic adenopathy Acute hypoxic respiratory failure secondary to bilateral pleural effusions and near complete occlusion of the right upper lobe s/p right sided thoracentesis Endobrachial lesion initiated on palliative radiation Positive sputum culture for staph aureus on IV cefazolin Steroid induced hyperglycemia Hyponatremia due to SIADH Acute kidney injury, improving History of malignant pericardial effusion s/p pericardial window Bronchospasm Oral thrush Atrial flutter, paroxysmal GI prophylaxis DVT prophylaxis: Subcu heparin Plan: Patient to continue on IV antibiotics and IV solu-cortef Cytology pending from the thoracentesis, bronchial washings and lung biopsy pending. Initiated on palliative radiation with Dr. Richey following any received radiation last week Tuesday and Patient is continued on fluid restriction 1200 cc and s/p samsca x 2 doses, nephrology following Patient is continued on bowel regimen and increasing activity as tolerated Continue accuchecks ACHS and scheduled insulin and levemir have been added for tighter glycemic control, hemoglobin A1c is 7.2 Recommend F/U labs in AM PT OT pending at this time Overall prognosis is guarded The impression and plan of care has been dictated by Luana Hensley, Nurse Practitioner as directed. Dr. Juan Antonio MD I have performed a history and examination and MDM of this patient, discussed the same with the dictator, and agree with the dictator's assessment and plan as written ,documented as a scribe. Based on total visit time, I have performed more than 50% of the visit. Objective - Vital Signs Vital signs: Vital Signs Temp 97.4 F L 11/15/22 08:35 Pulse 88 11/15/22 11:56 Resp 17 11/15/22 11:50 BP 99/63 11/15/22 11:50 Pulse Ox 93 L 11/15/22 11:50 FiO2 Intake & Output 11/14/22 11/15/22 11/15/22 18:59 06:59 18:59 Intake Total 1200 270 180 Output Total 200 300 450 Balance 1000 -30 -270 Intake: Oral 1200 270 180 Output: Urine 200 300 450 Other: Voiding Method Toilet Toilet Toilet - Labs CBC & Chem 7: 11/15/22 07:33 11/15/22 07:33 Labs: Abnormal Lab Results - Last 24 Hours (Table) 11/14/22 11/14/22 11/14/22 Range/Units 15:59 16:23 20:10 WBC (3.8-10.6) k/uL RBC (3.80-5.40) m/uL Hgb (11.4-16.0) gm/dL MCV (80.0-100.0) fL RDW (11.5-15.5) % Neutrophils # (1.3-7.7) k/uL Sodium 125 L (137-145) mmol/L Chloride (98-107) mmol/L BUN (7-17) mg/dL Creatinine (0.52-1.04) mg/dL Glucose (74-99) mg/dL POC Glucose (mg/dL) 162 H 260 H (70-110) mg/dL Hemoglobin A1c (<=6.0) % 11/15/22 11/15/22 11/15/22 Range/Units 06:01 07:33 07:33 WBC 13.0 H (3.8-10.6) k/uL RBC 3.39 L (3.80-5.40) m/uL Hgb 10.7 L (11.4-16.0) gm/dL MCV 100.3 H (80.0-100.0) fL RDW 17.4 H (11.5-15.5) % Neutrophils # 11.4 H (1.3-7.7) k/uL Sodium (137-145) mmol/L Chloride (98-107) mmol/L BUN (7-17) mg/dL Creatinine (0.52-1.04) mg/dL Glucose (74-99) mg/dL POC Glucose (mg/dL) 217 H (70-110) mg/dL Hemoglobin A1c 7.2 H (<=6.0) % 11/15/22 11/15/22 11/15/22 Range/Units 07:33 09:19 11:50 WBC (3.8-10.6) k/uL RBC (3.80-5.40) m/uL Hgb (11.4-16.0) gm/dL MCV (80.0-100.0) fL RDW (11.5-15.5) % Neutrophils # (1.3-7.7) k/uL Sodium 124 L (137-145) mmol/L Chloride 88 L (98-107) mmol/L BUN 50 H (7-17) mg/dL Creatinine 1.22 H (0.52-1.04) mg/dL Glucose 185 H (74-99) mg/dL POC Glucose (mg/dL) 166 H 204 H (70-110) mg/dL Hemoglobin A1c (<=6.0) %
[2022-11-15 17:26] LABS: Glucose,Whole Blood 196 mg/dL (70-110)
[2022-11-15 20:31] LABS: Glucose,Whole Blood 167 mg/dL (70-110)
[2022-11-15] MEDS: ZYRTEC 10MG TABLET PO SCH (20:39)
[2022-11-15] MEDS: INSULIN DETEMIR (LEVEMIR) 100 UNIT/ML SYR SQ SCH (20:40)
[2022-11-15] MEDS: SENNOSIDES-DOCUSATE SODIUM 1 EACH TAB PO SCH (20:40)
[2022-11-16] MEDS: IPRATROPIUM-ALBUTEROL 3 ML NEB INHALATION SCH ×6 (04:30→23:43)
[2022-11-16 06:42] LABS: African American GFR (CKD) 46 (>60 ml/min/1.73 sqM); Anion Gap 8 mmol/L; Blood Urea Nitrogen 52 mg/dL (7-17); Calcium 8.7 mg/dL (8.4-10.2); Carbon Dioxide 28 mmol/L (22-30); Chloride 91 mmol/L (98-107); Glucose 156 mg/dL (74-99); Non-African American GFR(CKD) 40 (>60 ml/min/1.73 sqM); Sodium 127 mmol/L (137-145)
[2022-11-16] MEDS: MIDODRINE 5 MG TAB PO SCH ×2 (06:58→16:27)
[2022-11-16 07:07] LABS: Anisocytosis Slight; Basophils % (A) 0 %; Eosinophils % (A) 0 %; HCT 34.4 % (34.0-46.0); HGB 11.1 gm/dL (11.4-16.0); Hypochromasia Slight; Lymphocytes % (A) 9 %; MCH 32.2 pg (25.0-35.0); MCHC 32.1 g/dL (31.0-37.0); MCV 100.3 fL (80.0-100.0); Macrocytosis Slight; Mean Platelet Volume 7.9; Monocytes # (A) 0.3 k/uL (0-1.0); Monocytes % (A) 3 %; Neutrophils # (A) 9.3 k/uL (1.3-7.7); Neutrophils % (A) 88 %; Platelet Count 212 k/uL (150-450); RBC 3.43 m/uL (3.80-5.40); RDW 17.6 % (11.5-15.5); WBC 10.7 k/uL (3.8-10.6)
[2022-11-16 08:07] LABS: Glucose,Whole Blood 139 mg/dL (70-110)
[2022-11-16] MEDS: INSULIN ASPART (NovoLOG) 100 UNIT/ML VIAL SQ SCH ×7 (08:48→21:30)
[2022-11-16] MEDS: ALPRAZolam 0.25 MG TAB PO PRN ×2 (08:53→21:29)
[2022-11-16] MEDS: HEPARIN SODIUM,PORCINE/PF 5,000 UNIT/0.5 ML SYRINGE SQ SCH ×2 (08:54→21:29)
[2022-11-16] MEDS: METOPROLOL TARTRATE 12.5 MG TAB PO SCH ×2 (08:54→21:28)
[2022-11-16] MEDS: FLUCONAZOLE 150 MG TAB PO SCH (08:55)
[2022-11-16] MEDS: NYSTATIN 100,000 UNIT/ML SUSP 500,000 UNIT/5 ML CUP PO SCH ×2 (08:55→13:30)
[2022-11-16] MEDS: SODIUM CHLORIDE TAB 1 GM TAB PO SCH (08:55)
[2022-11-16] MEDS: HYDROCORTISONE SUCCINATE 100 MG/2 ML VIAL IV SCH ×3 (08:55→22:57)
[2022-11-16] MEDS: AMIODARONE 200 MG TAB PO SCH ×2 (08:55→21:29)
[2022-11-16] MEDS: BENZONATATE 100 MG CAP PO SCH ×3 (08:55→21:29)
[2022-11-16] MEDS: FAMOTIDINE 20 MG TAB PO SCH (08:55)
[2022-11-16] MEDS: DEMECLOCYCLINE 150 MG TAB PO SCH ×2 (08:55→21:53)
[2022-11-16] MEDS: FLUTICASONE 50MCG/SPRAY NASAL 16GM EA NOSTRIL SCH ×2 (08:57→21:29)
[2022-11-16] MEDS: FORMOTEROL FUMARATE 20 MCG/2 ML NEBU INHALATION SCH ×2 (09:15→20:07)
[2022-11-16] MEDS: BUDESONIDE 1 MG/2 ML NEBU INHALATION SCH ×2 (09:15→20:07)
[2022-11-16] MEDS: guaiFENesin-DM 100-10MG/5ML 10 ML CUP PO PRN ×3 (09:53→21:53)
[2022-11-16 09:58] LABS: Glucose,Whole Blood 219 mg/dL (70-110)
--- NOTE | 2022-11-16 10:49 | P.PN ---
Subjective Patient is seen for f/u for hyponatremia secondary to SIADH Receiving Samsca daily. Patient is also maintained on demeclocycline. Urine osmolality was high at 535 Creatinine at 1.45 Patient does not like to fluid restriction but is trying to be compliant. Sodium had dropped to 124 yesterday and patient received sodium chloride tab. This morning sodium is 127. Objective - Vital Signs Vital signs: Vital Signs Temp 97.5 F L 11/16/22 08:45 Pulse 96 11/16/22 09:43 Resp 18 11/16/22 08:45 BP 99/60 11/16/22 08:45 Pulse Ox 98 11/16/22 09:20 FiO2 Intake & Output 11/15/22 11/16/22 11/16/22 18:59 06:59 18:59 Intake Total 180 60 Output Total 850 575 Balance -670 -515 Weight 86.7 kg Intake: IV 10 0.9 10 Intake, IV Titration 50 Amount ceFAZolin 1,000 mg In 50 Sodium Chloride 0.9% 50 ml @ 100 mls/hr IVPB Q8HR [facility] Rx#:[id number] Oral 180 Output: Urine 850 575 Other: Voiding Method Toilet Toilet Toilet # Voids 1 - Exam Awake , comfortable, no acute distress. A and O x3 Lungs show decreased breath sounds right lung CVS S1 and S2 Extremities show 1+ edema. [employer]UMENT [employer]OR exam is grossly intact. - Labs CBC & Chem 7: 11/16/22 05:36 11/16/22 05:36 Labs: Abnormal Lab Results - Last 24 Hours (Table) 11/15/22 11/15/22 11/15/22 Range/Units 07:33 11:50 17:25 WBC (3.8-10.6) k/uL RBC (3.80-5.40) m/uL Hgb (11.4-16.0) gm/dL MCV (80.0-100.0) fL RDW (11.5-15.5) % Neutrophils # (1.3-7.7) k/uL Sodium (137-145) mmol/L Chloride (98-107) mmol/L BUN (7-17) mg/dL Creatinine (0.52-1.04) mg/dL Glucose (74-99) mg/dL POC Glucose (mg/dL) 204 H 196 H (70-110) mg/dL Hemoglobin A1c 7.2 H (<=6.0) % 11/15/22 11/16/22 11/16/22 Range/Units 20:18 05:36 05:36 WBC 10.7 H (3.8-10.6) k/uL RBC 3.43 L (3.80-5.40) m/uL Hgb 11.1 L (11.4-16.0) gm/dL MCV 100.3 H (80.0-100.0) fL RDW 17.6 H (11.5-15.5) % Neutrophils # 9.3 H (1.3-7.7) k/uL Sodium 127 L (137-145) mmol/L Chloride 91 L (98-107) mmol/L BUN 52 H (7-17) mg/dL Creatinine 1.45 H (0.52-1.04) mg/dL Glucose 156 H (74-99) mg/dL POC Glucose (mg/dL) 167 H (70-110) mg/dL Hemoglobin A1c (<=6.0) % 11/16/22 11/16/22 Range/Units 08:05 09:56 WBC (3.8-10.6) k/uL RBC (3.80-5.40) m/uL Hgb (11.4-16.0) gm/dL MCV (80.0-100.0) fL RDW (11.5-15.5) % Neutrophils # (1.3-7.7) k/uL Sodium (137-145) mmol/L Chloride (98-107) mmol/L BUN (7-17) mg/dL Creatinine (0.52-1.04) mg/dL Glucose (74-99) mg/dL POC Glucose (mg/dL) 139 H 219 H (70-110) mg/dL Hemoglobin A1c (<=6.0) % Microbiology - Last 24 Hours (Table) 11/11/22 13:40 Gram Stain - Final Pleural Fluid Body Fluid Culture - Final Assessment and Plan Assessment: 1. Hyponatremia, mildly hypervolemic. 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 Urine osmolality 535. Receiving Samsca daily. Patient is also maintained on de meclocycline. Status post sodium chloride tab 2. Metastatic ovarian cancer with metastases to the lungs and pericardial effusion, status post pericardial window 3. New onset paroxysmal atrial flutter now in sinus rhythm 4. Acute hypoxic respiratory failure associated with significant involvement of the right lung with tumor and near occlusion of the bronchus. Significant right pleural effusion noted, s/p thoracentesis. 5. Acute kidney injury secondary to NSAIDs in the setting of hypotension, improving. Plan: Continue demeclocycline Continue with daily Samsca Maintain fluid restriction I will try to discontinue the sodium chloride Based on the repeat sodium from today as patient does have some lower extremity edema.
[2022-11-16] MEDS ORDERED: TOLVAPTAN 30 MG TABLET PO ONE (11:00)
[2022-11-16] MEDS ORDERED: TOLVAPTAN 15 MG TABLET PO ONE (11:00)
--- NOTE | 2022-11-16 11:25 | P.PN ---
Subjective Progress Note Date: 11/16/22 Principal diagnosis: Ovarian cancer. Reevaluated today on 11/11/2022, patient is about the same, continues to have cough and shortness. Had a long discussion with Dr. Richey yesterday regarding case, and he is planning to radiation therapy. In the meantime he showed me the CT of the chest which was done prior, and the patient seems to be developing bilateral pleural effusions, right more so on the left, I would recommend an ultrasound of the chest today, and the fluid is large enough would proceed with a right-sided thoracentesis mostly for diagnostic and therapeutic purposes. WBC count today is 17.5 hemoglobin is 10.6 sodium is up to 126. BUN is 53 creatinine 1.84. Patient is on fluid restriction, she is also on tolvaptan and she remains on demeclocycline. Her hydrocortisone dose will be cut down to 50 mg every 8 hours Patient was reevaluated today on 11/12/2022, patient continues to have cough and shortness of breath, had radiation treatment yesterday, she had right-sided thoracentesis yesterday, and I drained about 1000 mL of serosanguineous pleural effusion most likely malignant unless for otherwise. Cytology is pending. The fluid is exudative in nature, has LDH of 231 and a relatively elevated protein of 3040. Cytology is pending. Looking at the chest x-ray from yesterday, the left-sided pleural effusion is rather small, and I'm not recommending thoracentesis on the left pleural effusion at this point. Seems to be much smaller than the right side. Not to mention, awaiting cytology from the right- sided pleural effusion and we'll address that accordingly. Patient was reevaluated today on 11/13/2022, patient is mostly complaining of generalized weakness, fatigue, shortness of breath upon any activity, and weakness more pronounced than ever. Hence I'm recommending a Cortrosyn stimulation test on this patient patient has been on stress doses of hydrocortisone all along. Sodium is better, her labs are improving, cytology from the pleural effusion is pending biopsy results from the endobronchial tumors are pending patient had radiation already by Dr. Richey. Her labs today showed WBC count of 15.3 hemoglobin 10.9 sodium is 130 renal profile is improving BUN is 48 creatinine 1.47 Reevaluated today on 11/14/2022, patient is on 2 L nasal cannula O2 sats is on the percent. Feeling a bit better, able to take deeper breaths today compared to the last few days. However her sodium is down to 125, being addressed by nephrology. Remained generally weak. WBC 12.4 hemoglobin 10.8. BUN is 45 creatinine down to 1.39. Progress note dated 11/15/2022. The patient is seen today in room 355. She is currently on 2 L of oxygen. She 's getting saline at keep vein open. This morning, pathology was still pending. This included pathology on the pleural fluid, as well as on the bronchoscopy, and biopsies. She feels very short of breath, very fatigued and weak. Physical therapy has been ordered for this patient. White count 13, hemoglobin 10.7, hematocrit 34, with a normal platelet count. Sodium 124, potassium 4.2, chlorides 88, CO2 24, BUN 50, creatinine 1.22. Bronchial washings were positive for staph aureus. Chest x-ray shows some patchy infiltrates, left lower lobe. The patient continues on Ancef. Progress note dated 11/16/2022. The patient is seen today in room 355. She is currently on oxygen, at 2 L. She's getting saline at KVO. The pathology reports, finally did come back, showing tumor in the lung, consistent with the patient's primary ovarian carcinoma. The pleural fluid cytology was negative. Results of the biopsy were shared with the patient. Currently, the patient's biggest issue is some mild shortness of breath fatigue, and cough. All are being addressed. Lab data included a white count of 10.7, hemoglobin 11.1, hematocrit 34.4, and a normal platelet count. Sodium is 127, potassium 5, chlorides 91, CO2 28, BUN 52, and creatinine 1.45. Bronchial washings from November 08 show evidence of Staphylococcus aureus. Chest x-ray from November 15 show some infiltrate, or atelectasis, at the left lung base. Objective - Vital Signs Vital signs: Vital Signs Temp 97.5 F L 11/16/22 08:45 Pulse 81 11/16/22 09:55 Resp 17 11/16/22 09:55 BP 104/69 11/16/22 09:55 Pulse Ox 95 11/16/22 09:55 FiO2 Intake & Output 11/15/22 11/16/22 11/16/22 18:59 06:59 18:59 Intake Total 180 60 Output Total 850 575 Balance -670 -515 Weight 86.7 kg Intake: IV 10 0.9 10 Intake, IV Titration 50 Amount ceFAZolin 1,000 mg In 50 Sodium Chloride 0.9% 50 ml @ 100 mls/hr IVPB Q8HR [facility] Rx#:[id number] Oral 180 Output: Urine 850 575 Other: Voiding Method Toilet Toilet Toilet # Voids 1 - Exam No acute distress, oriented 3. Currently on 2 L. No respiratory distress. No conversational dyspnea. HEENT examination is grossly unremarkable. Mucous membranes are moist. No oral lesions. Neck supple. Full range of motion. No adenopathy thyromegaly or neck vein distention. Cardiovascular examination reveals regular rhythm rate. S1-S2 normal. No S3 or S4. No discernible murmur noted. Heart rate 81 bpm. Lungs reveal scattered rhonchi, particularly in the right lung. Mild expiratory wheezes. No crackles. Saturations are excellent. Saturations are 95-98%. Abdomen soft bowel sounds are heard. No masses or tenderness. Extremities are intact. No cyanosis clubbing or edema. Skin is without rash or lesion. Neurologic examination is brief but nonfocal. - Labs CBC & Chem 7: 11/16/22 05:36 11/16/22 05:36 Labs: Abnormal Lab Results - Last 24 Hours (Table) 11/15/22 11/15/22 11/15/22 Range/Units 07:33 11:50 17:25 WBC (3.8-10.6) k/uL RBC (3.80-5.40) m/uL Hgb (11.4-16.0) gm/dL MCV (80.0-100.0) fL RDW (11.5-15.5) % Neutrophils # (1.3-7.7) k/uL Sodium (137-145) mmol/L Chloride (98-107) mmol/L BUN (7-17) mg/dL Creatinine (0.52-1.04) mg/dL Glucose (74-99) mg/dL POC Glucose (mg/dL) 204 H 196 H (70-110) mg/dL Hemoglobin A1c 7.2 H (<=6.0) % 11/15/22 11/16/22 11/16/22 Range/Units 20:18 05:36 05:36 WBC 10.7 H (3.8-10.6) k/uL RBC 3.43 L (3.80-5.40) m/uL Hgb 11.1 L (11.4-16.0) gm/dL MCV 100.3 H (80.0-100.0) fL RDW 17.6 H (11.5-15.5) % Neutrophils # 9.3 H (1.3-7.7) k/uL Sodium 127 L (137-145) mmol/L Chloride 91 L (98-107) mmol/L BUN 52 H (7-17) mg/dL Creatinine 1.45 H (0.52-1.04) mg/dL Glucose 156 H (74-99) mg/dL POC Glucose (mg/dL) 167 H (70-110) mg/dL Hemoglobin A1c (<=6.0) % 11/16/22 11/16/22 Range/Units 08:05 09:56 WBC (3.8-10.6) k/uL RBC (3.80-5.40) m/uL Hgb (11.4-16.0) gm/dL MCV (80.0-100.0) fL RDW (11.5-15.5) % Neutrophils # (1.3-7.7) k/uL Sodium (137-145) mmol/L Chloride (98-107) mmol/L BUN (7-17) mg/dL Creatinine (0.52-1.04) mg/dL Glucose (74-99) mg/dL POC Glucose (mg/dL) 139 H 219 H (70-110) mg/dL Hemoglobin A1c (<=6.0) % Microbiology - Last 24 Hours (Table) 11/11/22 13:40 Gram Stain - Final Pleural Fluid Body Fluid Culture - Final Assessment and Plan Assessment: Acute shortness of breath, likely multifactorial, in part related to mild fluid overload/CHF, acute bronchitis with bronchospasm, as well as possible iatrogenic pneumonitis, related to Zejula. Metastatic ovarian carcinoma, with significant endobronchial disease in the right upper lobe, right middle lobe, and right lower lobe, status post bronchoscopy, with pathology positive for metastatic ovarian carcinoma. Paroxysmal atrial flutter. Status post right-sided thoracentesis, cytology negative. Hyponatremia, secondary to SIADH. Staph. aureus, bronchopneumonia/tracheobronchitis, currently on Ancef. Rule out active infection/bronchopneumonia, less likely. Metastatic ovarian carcinoma, diagnosed in 2008, with recurrence. The patient has diffuse adenopathy, both in the abdominal cavity and thoracic cavity. Metastatic pulmonary nodule. History of malignant pericardial effusion, status post pericardial window. Plan: Plan dated 10/31/2022. A pro-calcitonin level will be checked. Currently, the patient's on Pulmicort 1 mg, twice a day, mixed with formoterol, 20 g, twice a day. In addition, the patient's receiving updrafts with albuterol sulfate and ipratropium bromide. The patient is also on Solu-Medrol, 60 mg every 6 hours. Finally, the patient was placed on Rocephin, which was given to her in the emergency department. Labs, x-rays, medications are all reviewed. The patient is also receiving some Lasix, for possible mild fluid overload, although the N-terminal proBNP level was only 443. We will continue to follow the patient and make recommendations along the way. Her respiratory status appears to be relatively stable at this time. Plan dated 11/15/2022. The patient remains on 2 L of oxygen. She's received some radiation to the right chest area, with some improvement in her breathing. Her lung sounds are improved on the right side. The patient is on a fluid restriction for SIADH. She is also receiving treatment for same. Pathology reports, on the bronchoscopy, and cytology reports, on the pleural fluid, are pending. Physical therapy has been ordered for this patient. Labs, x-rays, medications are reviewed. Prognosis is certainly very guarded. Plan dated 11/16/2022. The patient remains on 2 L of oxygen. Saturations ranged from 95%, up to 98%. The patient complains primarily of fatigue, and cough. The cough likely r eflects irritation from the endobronchial tumor. Pathology reports on the bronchoscopy and biopsy, were positive for metastatic ovarian carcinoma. Pleural fluid cytology was negative. The patient was seen by physical therapy yesterday. We will continue to follow and make recommendations along the way. She is to receive additional radiation. She remains on Ancef for her staph infection. Prognosis is very guarded. Time with Patient: Less than 30
[2022-11-16 12:03] LABS: Glucose,Whole Blood 227 mg/dL (70-110)
--- NOTE | 2022-11-16 12:46 | CT ---
EXAMINATION TYPE: CT brain wo con DATE OF EXAM: 11/16/2022 COMPARISON: None INDICATION: Vision changes DLP: 1099.4 mGycm, Automated exposure control for dose reduction was used. CONTRAST: None CT of the brain is performed utilizing 3 mm thick sections through the posterior fossa and 3 mm thick sections through the remaining calvarium. Study is performed within 24 hours of arrival to the [facility]. No abnormal hyperdensity is present to suggest an acute intracranial hemorrhage. No mass lesion is evident. No acute infarcts are evident. Ventricles and sulci are appropriate for the patient age. Paranasal sinuses and mastoid air cells within the [id number] are clear. IMPRESSIONS: 1. No acute intracranial process. Follow-up MRI can be performed as clinically indicated.
--- NOTE | 2022-11-16 16:58 | P.CNNES ---
History of Present Illness Consult date: 11/16/22 Requesting physician: Tomasa Romano Reason for Consult: vision changes History of Present Illness: This is a 57-year-old woman with history of ovarian cancer diagnosed in 2008 metastases to the lung status post hysterectomy, post multiple chemotherapy, and ongoing radiation therapy who presented emergency department because of shortness of breath. Patient presents our facility on 10/30/2022. Neurology is consulted for visual disturbance. It seems that today around 10 AM she has an episode of tunnel vision feeling lightheaded and dizzy and the episode lasted for 4-5 minutes. Patient stated that that she was aware during the episodes. Denies at history of seizure. She stated that she had these episodes in the past and they're always associated with the hypoglycemia. But per the nurse she checked her vitals as well as her sugar which were within normal limits. She stated that because of her lung metastases she's been on steroids and that increases the sugar as well as that she had to be on insulin and sometimes she'll get hypoglycemic events Some of the workup during his hospital visit consisted of: Vitamin B12 is 405 TSH is 0.607. Hemoglobin A1c 7.2 Seems her sugar was 219 close to 10:[address] of the head is reported as no acute cranial process. Follow-up MRI can be performed as clinically indicated. I personally reviewed the CT and I agree with the report Review of Systems Review of system: The 12 point system was reviewed and apparent positive and n egative per HPI. Past Medical History Past Medical History: Cancer Additional Past Medical History / Comment(s): Hx ovarian cancer reoccurence ovarian cancer August 2021, recent CT that showed inflammation pr essing on trachea, 90 days tapering steroid dose. Pericardial effusion History of Any Multi-Drug Resistant Organisms: None Reported Past Surgical History: Bowel Resection, Cholecystectomy, Hernia Repair, Hysterectomy Additional Past Surgical History / Comment(s): Pericardial window July 2022 Past Anesthesia/Blood Transfusion Reactions: No Reported Reaction Past Psychological History: No Psychological Hx Reported Smoking Status: Never smoker Past Alcohol Use History: None Reported Past Drug Use History: None Reported - Past Family History Father History Unknown: Yes Family Medical History: Hypertension, Myocardial Infarction (NH) Mother Family Medical History: Diabetes Mellitus, Hypertension Medications and Allergies Home Medications Medication Instructions Recorded Confirmed Type Astragalus Root 2 cap PO Q3H 10/04/22 10/30/22 History Cetirizine HCl [Zyrtec] 10 mg PO HS 10/04/22 10/30/22 History Doterra Copaiba 2 cap PO HS 10/04/22 10/30/22 History Doterra On Guard 2 cap PO DAILY 10/04/22 10/30/22 History Famotidine 20 mg PO BID 10/04/22 10/30/22 History Fluticasone Nasal [place] [Flonase 1 spr EA NOSTRIL BID 10/04/22 10/30/22 History Nasal [place]] Magnesium Taurate 1 cap PO HS 10/04/22 10/30/22 History Formoterol Fumarate [Perforomist] 20 mcg INHALATION RT-BID ml 10/07/22 10/30/22 Rx Ipratropium-Albuterol Nebulize 3 ml INHALATION RT-QID each 10/07/22 10/30/22 Rx [Duoneb 0.5 mg-3 mg/3 ml Soln] Benzonatate [Tessalon Perle] 200 mg PO TID 10/30/22 10/30/22 History Budesonide [Pulmicort] 1 mg INHALATION RT-BID 10/30/22 10/30/22 History Docusate [Colace] 100 mg PO DAILY PRN 10/30/22 10/30/22 History predniSONE 10 mg PO DAILY 10/30/22 10/30/22 History predniSONE See Taper PO DAILY #183 tab 11/05/22 Rx Allergies Allergy/AdvReac Type Severity Reaction Status Date / Time carboplatin Allergy Anaphylaxis Verified 10/30/22 17:28 hydromorphone [From Dilaudid] AdvReac falls Verified 10/30/22 17:28 asleep hard to arouse Physical Examination - Vital Signs Vital Signs: Vital Signs Temp Pulse Pulse Resp BP Pulse Ox 11/16/22 13:04 84 11/16/22 12:52 88 11/16/22 12:00 94 18 104/68 98 11/16/22 09:55 81 17 104/69 95 11/16/22 09:43 96 11/16/22 09:35 92 11/16/22 09:34 92 11/16/22 09:20 88 98 11/16/22 08:45 97.5 F L 84 18 99/60 97 11/16/22 04:42 90 11/16/22 04:31 92 11/16/22 04:00 97.5 F L 75 18 99/66 97 11/16/22 01:13 80 18 11/16/22 00:00 97.9 F 80 18 108/75 96 11/15/22 23:14 90 11/15/22 23:01 86 11/15/22 20:29 90 11/15/22 20:14 88 11/15/22 20:04 85 11/15/22 20:00 97.8 F 87 18 105/74 97 Intake and Output 11/16/22 11/16/22 11/16/22 06:59 14:59 22:59 Intake Total 50 Output Total 325 Balance -275 Intake: Intake, IV Titration 50 Amount ceFAZolin 1,000 mg In 50 Sodium Chloride 0.9% 50 ml @ 100 mls/hr IVPB Q8HR [facility] Rx#:[id number] Output: Urine 325 Other: Voiding Method Toilet Toilet Weight 86.7 kg GENERAL: The patient is lying in bed and is not in acute distress. NEUROLOGICAL: Higher mental function: The patient is awake, alert, oriented to self, place and time. Patient is following commands. No aphasia and no neglect. Cranial nerves: The pupils are round, equal and reactive to light and accommodation. Visual herr are full to confrontation throughout. Extraocular movement is subtle mild left rotatory nystagmus looking to left. Facial sensation is normal to touch throughout. The facial strength is normal th roughout. Hearing is normal bilaterally to hand rub. Tongue is midline and moved [id number] without any difficulty. No dysarthria is noted. Shoulder shrug is normal bilaterally. Motor: The strength is 5 over 5 throughout. Normal tone and bulk. Cerebellum: Normal finger to nose heel to quiles bilaterally. Sensation: Sensation is normal to touch throughout. Reflexes (right/left): 1+ throughout. Results - Laboratory Findings CBC and BMP: 11/16/22 05:36 11/16/22 05:36 Abnormal Lab Findings: Abnormal Labs 10/30/22 10/30/22 10/30/22 11:45 11:45 11:45 WBC RBC 3.07 L Hgb 10.0 L D Hct 31.3 L MCV 101.8 H RDW 16.9 H Neutrophils # Lymphocytes # 0.7 L D-Dimer 1.85 H Sodium 128 L Potassium Chloride 96 L Carbon Dioxide BUN Creatinine Glucose 176 H POC Glucose (mg/dL) Hemoglobin A1c Magnesium 1.4 L Transferrin Ferritin ALT Lactate Dehydrogenase Total Protein Albumin Triglycerides HDL Cholesterol Methylmalonic Acid Fluid Appearance 10/30/22 10/30/22 10/30/22 11:45 18:08 20:26 WBC RBC Hgb Hct MCV RDW Neutrophils # Lymphocytes # D-Dimer Sodium Potassium Chloride Carbon Dioxide BUN Creatinine Glucose POC Glucose (mg/dL) 267 H 257 H Hemoglobin A1c Magnesium Transferrin Ferritin ALT Lactate Dehydrogenase Total Protein Albumin Triglycerides 189.00 H HDL Cholesterol 67.90 H Methylmalonic Acid Fluid Appearance 10/31/22 10/31/22 10/31/22 06:18 11:40 16:18 WBC RBC Hgb Hct MCV RDW Neutrophils # Lymphocytes # D-Dimer Sodium Potassium Chloride Carbon Dioxide BUN Creatinine Glucose POC Glucose (mg/dL) 227 H 252 H 244 H Hemoglobin A1c Magnesium Transferrin Ferritin ALT Lactate Dehydrogenase Total Protein Albumin Triglycerides HDL Cholesterol Methylmalonic Acid Fluid Appearance 10/31/22 11/01/22 11/01/22 20:39 05:52 07:48 WBC 15.7 H RBC 2.96 L Hgb 9.5 L Hct 30.3 L MCV 102.1 H RDW 16.9 H Neutrophils # 14.6 H Lymphocytes # 0.7 L D-Dimer Sodium Potassium Chloride Carbon Dioxide BUN Creatinine Glucose POC Glucose (mg/dL) 254 H 287 H Hemoglobin A1c Magnesium Transferrin Ferritin ALT Lactate Dehydrogenase Total Protein Albumin Triglycerides HDL Cholesterol Methylmalonic Acid Fluid Appearance 11/01/22 11/01/22 11/01/22 07:48 11:43 16:49 WBC RBC Hgb Hct MCV RDW Neutrophils # Lymphocytes # D-Dimer Sodium 127 L Potassium Chloride 89 L Carbon Dioxide BUN 20 H Creatinine Glucose 300 H POC Glucose (mg/dL) 277 H 235 H Hemoglobin A1c Magnesium Transferrin Ferritin ALT Lactate Dehydrogenase Total Protein Albumin Triglycerides HDL Cholesterol Methylmalonic Acid Fluid Appearance 11/01/22 11/02/22 11/02/22 20:16 05:52 10:54 WBC RBC Hgb Hct MCV RDW Neutrophils # Lymphocytes # D-Dimer Sodium Potassium Chloride Carbon Dioxide BUN Creatinine Glucose POC Glucose (mg/dL) 244 H 290 H Hemoglobin A1c Magnesium Transferrin 192.0 L Ferritin 453.0 H ALT Lactate Dehydrogenase Total Protein Albumin Triglycerides HDL Cholesterol Methylmalonic Acid Fluid Appearance 11/02/22 11/02/22 11/02/22 10:54 11:23 16:15 WBC RBC Hgb Hct MCV RDW Neutrophils # Lymphocytes # D-Dimer Sodium Potassium Chloride Carbon Dioxide BUN Creatinine Glucose POC Glucose (mg/dL) 317 H 327 H Hemoglobin A1c Magnesium Transferrin Ferritin ALT Lactate Dehydrogenase Total Protein Albumin Triglycerides HDL Cholesterol Methylmalonic Acid 0.70 H Fluid Appearance 11/02/22 11/03/22 11/03/22 20:27 06:03 07:11 WBC 13.1 H RBC 3.22 L Hgb 10.7 L Hct 33.1 L MCV 102.5 H RDW 16.8 H Neutrophils # 11.7 H Lymphocytes # 0.9 L D-Dimer Sodium Potassium Chloride Carbon Dioxide BUN Creatinine Glucose POC Glucose (mg/dL) 264 H 254 H Hemoglobin A1c Magnesium Transferrin Ferritin ALT Lactate Dehydrogenase Total Protein Albumin Triglycerides HDL Cholesterol Methylmalonic Acid Fluid Appearance 11/03/22 11/03/22 11/03/22 07:11 11:23 16:34 WBC RBC Hgb Hct MCV RDW Neutrophils # Lymphocytes # D-Dimer Sodium 130 L Potassium Chloride 88 L Carbon Dioxide 31 H BUN 29 H Creatinine Glucose 252 H POC Glucose (mg/dL) 228 H 302 H Hemoglobin A1c Magnesium Transferrin Ferritin ALT Lactate Dehydrogenase Total Protein Albumin Triglycerides HDL Cholesterol Methylmalonic Acid Fluid Appearance 11/03/22 11/04/22 11/04/22 19:50 05:52 08:18 WBC 11.9 H RBC 3.40 L Hgb 10.7 L Hct MCV 101.3 H RDW 16.6 H Neutrophils # 10.8 H Lymphocytes # 0.8 L D-Dimer Sodium Potassium Chloride Carbon Dioxide BUN Creatinine Glucose POC Glucose (mg/dL) 331 H 305 H Hemoglobin A1c Magnesium Transferrin Ferritin ALT Lactate Dehydrogenase Total Protein Albumin Triglycerides HDL Cholesterol Methylmalonic Acid Fluid Appearance 11/04/22 11/04/22 11/04/22 08:18 11:38 16:34 WBC RBC Hgb Hct MCV RDW Neutrophils # Lymphocytes # D-Dimer Sodium 131 L Potassium 3.3 L Chloride 88 L Carbon Dioxide 31 H BUN 28 H Creatinine Glucose 279 H POC Glucose (mg/dL) 224 H 287 H Hemoglobin A1c Magnesium Transferrin Ferritin ALT 38 H Lactate Dehydrogenase Total Protein Albumin Triglycerides HDL Cholesterol Methylmalonic Acid Fluid Appearance 11/04/22 11/05/22 11/05/22 20:09 06:18 08:44 WBC 16.5 H RBC 3.46 L Hgb 10.7 L Hct MCV RDW 16.6 H Neutrophils # 13.2 H Lymphocytes # D-Dimer Sodium Potassium Chloride Carbon Dioxide BUN Creatinine Glucose POC Glucose (mg/dL) 185 H 180 H Hemoglobin A1c Magnesium Transferrin Ferritin ALT Lactate Dehydrogenase Total Protein Albumin Triglycerides HDL Cholesterol Methylmalonic Acid Fluid Appearance 11/05/22 11/05/22 11/05/22 08:44 11:55 17:07 WBC RBC Hgb Hct MCV RDW Neutrophils # Lymphocytes # D-Dimer Sodium 129 L Potassium Chloride 88 L Carbon Dioxide 33 H BUN 26 H Creatinine Glucose 166 H POC Glucose (mg/dL) 292 H 351 H Hemoglobin A1c Magnesium Transferrin Ferritin ALT Lactate Dehydrogenase Total Protein Albumin Triglycerides HDL Cholesterol Methylmalonic Acid Fluid Appearance 11/05/22 11/06/22 11/06/22 20:09 06:02 07:46 WBC 13.8 H RBC 3.34 L Hgb 10.8 L Hct 33.6 L MCV 100.7 H RDW 16.5 H Neutrophils # 11.1 H Lymphocytes # D-Dimer Sodium Potassium Chloride Carbon Dioxide BUN Creatinine Glucose POC Glucose (mg/dL) 231 H 171 H Hemoglobin A1c Magnesium Transferrin Ferritin ALT Lactate Dehydrogenase Total Protein Albumin Triglycerides HDL Cholesterol Methylmalonic Acid Fluid Appearance 11/06/22 11/06/22 11/06/22 07:46 11:18 16:11 WBC RBC Hgb Hct MCV RDW Neutrophils # Lymphocytes # D-Dimer Sodium 127 L Potassium 3.4 L Chloride 85 L Carbon Dioxide 37 H BUN 22 H Creatinine Glucose 165 H POC Glucose (mg/dL) 255 H 363 H Hemoglobin A1c Magnesium Transferrin Ferritin ALT Lactate Dehydrogenase Total Protein Albumin Triglycerides HDL Cholesterol Methylmalonic Acid Fluid Appearance 11/06/22 11/07/22 11/07/22 20:21 06:01 07:10 WBC 14.3 H RBC 3.47 L Hgb Hct MCV RDW 16.5 H Neutrophils # 11.3 H Lymphocytes # D-Dimer Sodium Potassium Chloride Carbon Dioxide BUN Creatinine Glucose POC Glucose (mg/dL) 227 H 152 H Hemoglobin A1c Magnesium Transferrin Ferritin ALT Lactate Dehydrogenase Total Protein Albumin Triglycerides HDL Cholesterol Methylmalonic Acid Fluid Appearance 11/07/22 11/07/22 11/07/22 07:10 11:46 16:42 WBC RBC Hgb Hct MCV RDW Neutrophils # Lymphocytes # D-Dimer Sodium 127 L Potassium Chloride 87 L Carbon Dioxide 34 H BUN Creatinine Glucose 155 H POC Glucose (mg/dL) 245 H 285 H Hemoglobin A1c Magnesium Transferrin Ferritin ALT Lactate Dehydrogenase Total Protein 6.2 L Albumin 3.4 L Triglycerides HDL Cholesterol Methylmalonic Acid Fluid Appearance 11/07/22 11/08/22 11/08/22 20:25 06:08 06:41 WBC 15.3 H RBC 3.28 L Hgb 10.4 L Hct 32.5 L MCV RDW 16.4 H Neutrophils # 12.2 H Lymphocytes # D-Dimer Sodium Potassium Chloride Carbon Dioxide BUN Creatinine Glucose POC Glucose (mg/dL) 276 H 149 H Hemoglobin A1c Magnesium Transferrin Ferritin ALT Lactate Dehydrogenase Total Protein Albumin Triglycerides HDL Cholesterol Methylmalonic Acid Fluid Appearance 11/08/22 11/08/22 11/08/22 06:41 12:04 16:29 WBC RBC Hgb Hct MCV RDW Neutrophils # Lymphocytes # D-Dimer Sodium 124 L Potassium Chloride 87 L Carbon Dioxide 32 H BUN Creatinine Glucose 137 H POC Glucose (mg/dL) 283 H 338 H Hemoglobin A1c Magnesium Transferrin Ferritin ALT Lactate Dehydrogenase Total Protein 5.7 L Albumin 3.2 L Triglycerides HDL Cholesterol Methylmalonic Acid Fluid Appearance 11/08/22 11/09/22 11/09/22 20:04 05:56 07:35 WBC 18.4 H RBC 3.30 L Hgb 10.7 L Hct 33.0 L MCV 100.1 H RDW 16.5 H Neutrophils # 15.1 H Lymphocytes # D-Dimer Sodium Potassium Chloride Carbon Dioxide BUN Creatinine Glucose POC Glucose (mg/dL) 249 H 167 H Hemoglobin A1c Magnesium Transferrin Ferritin ALT Lactate Dehydrogenase Total Protein Albumin Triglycerides HDL Cholesterol Methylmalonic Acid Fluid Appearance 11/09/22 11/09/22 11/09/22 07:35 07:35 11:41 WBC RBC Hgb Hct MCV RDW Neutrophils # Lymphocytes # D-Dimer Sodium 123 L Potassium Chloride 86 L Carbon Dioxide BUN 24 H Creatinine Glucose 139 H POC Glucose (mg/dL) 247 H Hemoglobin A1c Magnesium Transferrin Ferritin ALT Lactate Dehydrogenase 268 H Total Protein 5.8 L 5.9 L Albumin 3.3 L Triglycerides HDL Cholesterol Methylmalonic Acid Fluid Appearance 11/09/22 11/09/22 11/09/22 16:45 16:46 19:58 WBC RBC Hgb Hct MCV RDW Neutrophils # Lymphocytes # D-Dimer Sodium 121 L Potassium Chloride Carbon Dioxide BUN Creatinine Glucose POC Glucose (mg/dL) 266 H 218 H Hemoglobin A1c Magnesium Transferrin Ferritin ALT Lactate Dehydrogenase Total Protein Albumin Triglycerides HDL Cholesterol Methylmalonic Acid Fluid Appearance 11/09/22 11/10/22 11/10/22 23:18 06:12 06:42 WBC 16.6 H RBC 3.33 L Hgb 10.6 L Hct 33.1 L MCV RDW 16.7 H Neutrophils # 14.7 H Lymphocytes # D-Dimer Sodium 119 L* Potassium Chloride Carbon Dioxide BUN Creatinine Glucose POC Glucose (mg/dL) 204 H Hemoglobin A1c Magnesium Transferrin Ferritin ALT Lactate Dehydrogenase Total Protein Albumin Triglycerides HDL Cholesterol Methylmalonic Acid Fluid Appearance 11/10/22 11/10/22 11/10/22 06:42 11:44 15:43 WBC RBC Hgb Hct MCV RDW Neutrophils # Lymphocytes # D-Dimer Sodium 123 L 124 L Potassium Chloride 85 L Carbon Dioxide BUN 41 H Creatinine 1.58 H Glucose 194 H POC Glucose (mg/dL) 248 H Hemoglobin A1c Magnesium Transferrin Ferritin ALT Lactate Dehydrogenase Total Protein 6.0 L Albumin 3.4 L Triglycerides HDL Cholesterol Methylmalonic Acid Fluid Appearance 11/10/22 11/10/22 11/10/22 17:02 20:27 22:04 WBC RBC Hgb Hct MCV RDW Neutrophils # Lymphocytes # D-Dimer Sodium 125 L Potassium Chloride Carbon Dioxide BUN Creatinine Glucose POC Glucose (mg/dL) 236 H 238 H Hemoglobin A1c Magnesium Transferrin Ferritin ALT Lactate Dehydrogenase Total Protein Albumin Triglycerides HDL Cholesterol Methylmalonic Acid Fluid Appearance 11/11/22 11/11/22 11/11/22 06:06 07:48 07:48 WBC 17.5 H RBC 3.33 L Hgb 10.6 L Hct 32.6 L MCV RDW 16.8 H Neutrophils # 15.5 H Lymphocytes # D-Dimer Sodium 126 L Potassium Chloride 88 L Carbon Dioxide BUN 53 H Creatinine 1.84 H Glucose 176 H POC Glucose (mg/dL) 245 H Hemoglobin A1c Magnesium Transferrin Ferritin ALT Lactate Dehydrogenase Total Protein 6.2 L Albumin Triglycerides HDL Cholesterol Methylmalonic Acid Fluid Appearance 11/11/22 11/11/22 11/11/22 11:45 13:40 17:03 WBC RBC Hgb Hct MCV RDW Neutrophils # Lymphocytes # D-Dimer Sodium Potassium Chloride Carbon Dioxide BUN Creatinine Glucose POC Glucose (mg/dL) 256 H 246 H Hemoglobin A1c Magnesium Transferrin Ferritin ALT Lactate Dehydrogenase Total Protein Albumin Triglycerides HDL Cholesterol Methylmalonic Acid Fluid Appearance Bloody A 11/11/22 11/12/22 11/12/22 21:38 05:58 07:31 WBC 15.3 H RBC 3.30 L Hgb 10.9 L Hct 33.5 L MCV 101.8 H RDW 16.9 H Neutrophils # 13.1 H Lymphocytes # D-Dimer Sodium Potassium Chloride Carbon Dioxide BUN Creatinine Glucose POC Glucose (mg/dL) 200 H 182 H Hemoglobin A1c Magnesium Transferrin Ferritin ALT Lactate Dehydrogenase Total Protein Albumin Triglycerides HDL Cholesterol Methylmalonic Acid Fluid Appearance 11/12/22 11/12/22 11/12/22 07:31 11:19 16:37 WBC RBC Hgb Hct MCV RDW Neutrophils # Lymphocytes # D-Dimer Sodium 130 L Potassium Chloride 91 L Carbon Dioxide 31 H BUN 48 H Creatinine 1.47 H Glucose 170 H POC Glucose (mg/dL) 229 H 212 H Hemoglobin A1c Magnesium Transferrin Ferritin ALT Lactate Dehydrogenase Total Protein 6.0 L Albumin Triglycerides HDL Cholesterol Methylmalonic Acid Fluid Appearance 11/12/22 11/13/22 11/13/22 19:57 05:59 06:12 WBC RBC Hgb Hct MCV RDW Neutrophils # Lymphocytes # D-Dimer Sodium Potassium Chloride Carbon Dioxide BUN Creatinine Glucose POC Glucose (mg/dL) 249 H 185 H Hemoglobin A1c Magnesium 2.4 H Transferrin Ferritin ALT Lactate Dehydrogenase Total Protein Albumin Triglycerides HDL Cholesterol Methylmalonic Acid Fluid Appearance 11/13/22 11/13/22 11/13/22 06:12 06:12 11:42 WBC 13.7 H RBC 3.27 L Hgb 10.8 L Hct 33.7 L MCV 103.0 H RDW 16.8 H Neutrophils # 12.3 H Lymphocytes # D-Dimer Sodium 128 L Potassium Chloride 94 L Carbon Dioxide BUN 46 H Creatinine 1.25 H Glucose 177 H POC Glucose (mg/dL) 294 H Hemoglobin A1c Magnesium Transferrin Ferritin ALT Lactate Dehydrogenase Total Protein Albumin Triglycerides HDL Cholesterol Methylmalonic Acid Fluid Appearance 11/13/22 11/13/22 11/14/22 16:41 20:06 06:06 WBC RBC Hgb Hct MCV RDW Neutrophils # Lymphocytes # D-Dimer Sodium Potassium Chloride Carbon Dioxide BUN Creatinine Glucose POC Glucose (mg/dL) 168 H 281 H 220 H Hemoglobin A1c Magnesium Transferrin Ferritin ALT Lactate Dehydrogenase Total Protein Albumin Triglycerides HDL Cholesterol Methylmalonic Acid Fluid Appearance 11/14/22 11/14/2223 06:51 06:51 12:05 WBC 12.4 H RBC 3.30 L Hgb 10.8 L Hct 33.6 L MCV 101.8 H RDW 17.0 H Neutrophils # 10.9 H Lymphocytes # D-Dimer Sodium 125 L Potassium Chloride 90 L Carbon Dioxide BUN 45 H Creatinine 1.39 H Glucose 159 H POC Glucose (mg/dL) 301 H Hemoglobin A1c Magnesium Transferrin Ferritin ALT Lactate Dehydrogenase Total Protein Albumin Triglycerides HDL Cholesterol Methylmalonic Acid Fluid Appearance 11/14/22 11/14/22 11/14/22 15:59 16:23 20:10 WBC RBC Hgb Hct MCV RDW Neutrophils # Lymphocytes # D-Dimer Sodium 125 L Potassium Chloride Carbon Dioxide BUN Creatinine Glucose POC Glucose (mg/dL) 162 H 260 H Hemoglobin A1c Magnesium Transferrin Ferritin ALT Lactate Dehydrogenase Total Protein Albumin Triglycerides HDL Cholesterol Methylmalonic Acid Fluid Appearance 11/15/22 11/15/22 11/15/22 06:01 07:33 07:33 WBC 13.0 H RBC 3.39 L Hgb 10.7 L Hct MCV 100.3 H RDW 17.4 H Neutrophils # 11.4 H Lymphocytes # D-Dimer Sodium Potassium Chloride Carbon Dioxide BUN Creatinine Glucose POC Glucose (mg/dL) 217 H Hemoglobin A1c 7.2 H Magnesium Transferrin Ferritin ALT Lactate Dehydrogenase Total Protein Albumin Triglycerides HDL Cholesterol Methylmalonic Acid Fluid Appearance 11/15/22 11/15/22 11/15/22 07:33 09:19 11:50 WBC RBC Hgb Hct MCV RDW Neutrophils # Lymphocytes # D-Dimer Sodium 124 L Potassium Chloride 88 L Carbon Dioxide BUN 50 H Creatinine 1.22 H Glucose 185 H POC Glucose (mg/dL) 166 H 204 H Hemoglobin A1c Magnesium Transferrin Ferritin ALT Lactate Dehydrogenase Total Protein Albumin Triglycerides HDL Cholesterol Methylmalonic Acid Fluid Appearance 11/15/22 11/15/22 11/16/22 17:25 20:18 05:36 WBC 10.7 H RBC 3.43 L Hgb 11.1 L Hct MCV 100.3 H RDW 17.6 H Neutrophils # 9.3 H Lymphocytes # D-Dimer Sodium Potassium Chloride Carbon Dioxide BUN Creatinine Glucose POC Glucose (mg/dL) 196 H 167 H Hemoglobin A1c Magnesium Transferrin Ferritin ALT Lactate Dehydrogenase Total Protein Albumin Triglycerides HDL Cholesterol Methylmalonic Acid Fluid Appearance 11/16/22 11/16/22 11/16/22 05:36 08:05 09:56 WBC RBC Hgb Hct MCV RDW Neutrophils # Lymphocytes # D-Dimer Sodium 127 L Potassium Chloride 91 L Carbon Dioxide BUN 52 H Creatinine 1.45 H Glucose 156 H POC Glucose (mg/dL) 139 H 219 H Hemoglobin A1c Magnesium Transferrin Ferritin ALT Lactate Dehydrogenase Total Protein Albumin Triglycerides HDL Cholesterol Methylmalonic Acid Fluid Appearance 11/16/22 12:02 WBC RBC Hgb Hct MCV RDW Neutrophils # Lymphocytes # D-Dimer Sodium Potassium Chloride Carbon Dioxide BUN Creatinine Glucose POC Glucose (mg/dL) 227 H Hemoglobin A1c Magnesium Transferrin Ferritin ALT Lactate Dehydrogenase Total Protein Albumin Triglycerides HDL Cholesterol Methylmalonic Acid Fluid Appearance Assessment and Plan Assessment: Transient episode of visual disturbance in which the patient had tunnel vision, feeling lightheaded and dizzy lasting about 5 minutes: Unknown exact etiology rule out brain metastases vs leptomeningeal spread vs ?seizure. Her sugar was 219 during the episode History of recurrent episodes of visual disturbance with dizziness lightheadedness and feeling vision is tunnel and she stated that with these episodes she has hypoglycemia Acute shortness of breath and felt related to mild fluid overload/congestive heart failure, acute bronchitis as well as possible E ectogenic pneumonitis Acute hyponatremia and is felt secondary due to SIADH--improving History of ovarian cancer diagnosed in 2008 metastases to the lungstatus post hysterectomy, multiple chemotherapy and had radiation therapy that has focal rec ently. Last chemotherapy was in February 2022. 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 Ordered routine EEG to rule out any underlying seizure. IF Patient continues to have these symptoms consider lumbar puncture to rule out her any meningeal metastasis Pulmonary, ID, oncology, radiation oncology nephrology on board. We'll defer the rest of the management to the primary and other specialists. The plan was discussed with the patient, her who is at bedside as well as her nurse. Thank you consultation Time with Patient: Greater than 30
--- NOTE | 2022-11-16 17:15 | P.PN ---
Subjective Progress Note Date: 11/16/22 This is a patient of Dr Velazquez who has been hospitalized secondary metastatic ovarian cancer and found to have pericardial effusion and pleural effusion. Patient underwent bronchoscopy and found to have endobronchial lesion and started on palliative radiation to receive 2nd treatment today. Underwent right sided thoracentesis which was bloody in nature and currently pending pathology. Patient remains on 15L hi flow cannula and is tearful about current diagnosis as she has had lengthy hospital stay at 14 days. Continues on IV cefazolin for staph aureas positive sputum culture, IV solu-cortef. Patient received a dose of samsca yesterday and sodium is up to 130. White count down to 15.3, hemoglobin stable at 10.9. 11/13/2022 Patient is evaluated today sitting up in chair. Daughter at bedside. Patient started on DVT prophylaxis with subcu heparin refusing mechanical prophylaxis doesn't want SCDs. Patient continues on 3L of oxygen with humidification and reports significant sinus congestion and stuffy crusty nose. Using flonase and will add deep sea nasal spray and can use thin coating of ayr saline gel with a qtip to moisten the nasal passages. Claritin as needed has been added as well. Patient remains on duobens IV solucortef and IV cefazolin. Pathology from thoracentesis is pending. Blood pressure emains low 100s high 90s systolic and continues on midodrine BID. patient feels progressively weak and unable to tolerate ambulation for long distances. Had a BM this morning. 11/14/2022 Patient remains on the step down unit. Continues on IV cefazolin for staph aureas in the sputum. Patient reports feeling less short of breath today on 2-3L nasal cannula increasing up to 5L when ambulating. Unable to tolerate much activity. Reports constipation which isn't unusual for her. Continues on fluid restriction 1200 cc in 24 hours. Patient having a hard time with this wanting to increase fluid intake to help with the constipation. Was started on senekot HS and will add dulcolax suppository as well. White count continues to improved to 12.4 today, hgb 10.8. Sodium down to 125, kidney function slightly worse BUN 45 and creatinine of 1.39. Blood glucose 200s. 11/15/2022 Patient is seen and evaluated and follow-up currently sitting up in the chair with family member present. Patient continues on oxygen and continues to report shortness of breath with exertion. Patient continues on IV antibiotics in the form of cefazolin and IV fluconazole was sputum culture showing staph aureus and awaiting repeat cultures from pleural fluid done on paracentesis from 11/11/2022. White count remains elevated at 13 and hemoglobin is 10.7, platelets are 253. Sodium is significantly low at 124 with nephrology following. Kidney functions slightly improved from yesterday with a creatinine of 1.22. Blood sugars remained elevated and will continue to monitor with Accu- Cheks and sliding scale. Hemoglobin A1c was 7.2. Patient remains afebrile denies chest pain or palpitations. Patient reports her lungs feel somewhat improved although continues to report shortness of breath. Patient denies nausea or vomiting and tolerating oral intake. Recommend strongly to continue with fluid restrictions. Chest x-ray shows patchy density left lower lobe correlate for pneumonia. 11/16/2022 Patient is seen in follow-up this morning with multiple medical consultations following. Per nursing staff patient reported a brief episode of tunnel vision and disturbance in vision that lasted approximately 5-10 minutes and neurology has been consulted and pending. CT brain ordered showing no acute process and will await neurology recommendations. Nephrology following for significant hyponatremia and was maintained on sodium chloride tabs and fluid restrictions and was given a dose of Samsca and awaiting repeat sodium. Patient continues to report shortness of breath and dyspnea with minimal exertion and maintained on oxygen. Patient is afebrile with no reports of chest pain or palpitations. Kidney functions gradually getting worse currently at 1.4 today and will follow- up with repeat labs. Overall prognosis remains guarded at this time. Review of Systems Constitutional: Reports fatigue denied any fever. Cardio vascular: denied any chest pain, palpitations Gastrointestinal: denied any nausea, vomiting, diarrhea, reports constipation Pulmonary: Reports shortness of breath worse with exertion with continued cough Neurologic patient reported a brief episode of tunnel vision and decreased vision that lasted approximately 5-10 minutes, reports of generalized weakness All inpatient medications were reviewed and appropriate changes in these medications as dictated in the interval history and assessment and plan. Active Medications Hydrocodone Bitart/Acetaminophen (Hydrocodone/Apap 5-325mg 1 Each Tab) 1 each PO Q4HR PRN PRN Reason: Pain Last Admin: 11/09/22 10:00 Dose: 1 each Albuterol/Ipratropium (Ipratropium-Albuterol 3 Ml Neb) 3 ml INHALATION RT-Q2H PRN PRN Reason: Shortness Of Breath Or Wheezing Last Admin: 11/12/22 16:41 Dose: 3 ml Albuterol/Ipratropium (Ipratropium-Albuterol 3 Ml Neb) 3 ml INHALATION RT-Q4H SAMIR Last Admin: 11/16/22 16:41 Dose: 3 ml Alprazolam (Alprazolam 0.25 Mg Tab) 0.25 mg PO Q4HR PRN PRN Reason: Anxiety Last Admin: 11/16/22 08:53 Dose: 0.25 mg Amiodarone HCl (Amiodarone 200 Mg Tab) 200 mg PO BID [facility] Last Admin: 11/16/22 08:55 Dose: 200 mg Benzonatate (Benzonatate 100 Mg Cap) 200 mg PO TID [facility] Last Admin: 11/16/22 16:27 Dose: 200 mg Budesonide (Budesonide 1 Mg/2 Ml Nebu) 1 mg INHALATION RT-BID [facility] Last Admin: 11/16/22 09:15 Dose: 1 mg Demeclocycline HCl (Demeclocycline 150 Mg Tab) 300 mg PO BID [facility]; Protocol Last Admin: 11/16/22 08:55 Dose: 300 mg Dextrose/Water (Dextrose 50% Syringe 50 Ml) 25 ml IVP PER PROTOCOL PRN; Protocol PRN Reason: Hypoglycemia Dextrose/Water (Dextrose 50% Syringe 50 Ml) 50 ml IVP PER PROTOCOL PRN; Protocol PRN Reason: Hypoglycemia Docusate Sodium (Docusate 100 Mg Cap) 100 mg PO DAILY PRN PRN Reason: Constipation Last Admin: 11/14/22 06:03 Dose: 100 mg Famotidine (Famotidine 20 Mg Tab) 20 mg PO DAILY [facility] Last Admin: 11/16/22 08:55 Dose: 20 mg Fluconazole (Fluconazole 150 Mg Tab) 150 mg PO DAILY [facility]; Protocol Last Admin: 11/16/22 08:55 Dose: 150 mg Fluticasone Propionate (Fluticasone 50mcg/[place] Nasal 16gm) 1 spray EA NOSTRIL BID [facility] Last Admin: 11/16/22 08:57 Dose: 1 spray Formoterol Fumarate (Formoterol Fumarate 20 Mcg/2 Ml Nebu) 20 mcg INHALATION RT-BID [facility] Last Admin: 11/16/22 09:15 Dose: 20 mcg Guaifenesin/Dextromethorphan (Guaifenesin-Dm 100-10mg/5ml 10 Ml Cup) 10 ml PO Q6HR PRN PRN Reason: Cough Last Admin: 11/16/22 16:26 Dose: 10 ml Heparin Sodium (Porcine) (Heparin Sodium,Porcine/Pf 5,000 Unit/0.5 Ml Syringe) 5,000 unit SQ Q12HR [facility] Last Admin: 11/16/22 08:54 Dose: 5,000 unit Hydrocortisone Sodium Succinate (Hydrocortisone Succinate 100 Mg/2 Ml Vial) 50 mg IV Q8HR [facility] Last Admin: 11/16/22 16:26 Dose: 50 mg Cefazolin Sodium 1,000 mg/ (Sodium Chloride) 50 mls @ 100 mls/hr IVPB Q8HR [facility]; Protocol Last Admin: 11/16/22 16:27 Dose: 100 mls/hr Insulin Aspart (Insulin Aspart (Novolog) 100 Unit/Ml Vial) 0 unit SQ ACHS [facility]; Protocol Last Admin: 11/16/22 12:08 Dose: 4 unit Insulin Aspart (Insulin Aspart (Novolog) 100 Unit/Ml Vial) 4 unit SQ AC-TID [facility] Last Admin: 11/16/22 12:07 Dose: 4 unit Insulin Detemir (Insulin Detemir (Levemir) 100 Unit/Ml Syr) 6 unit SQ HS [facility] Last Admin: 11/15/22 20:40 Dose: 6 unit Loratadine (Loratadine 10 Mg Tab) 5 mg PO DAILY PRN PRN Reason: Congestion Metoprolol Tartrate (Metoprolol Tartrate 12.5 Mg Tab) 12.5 mg PO BID [facility] Last Admin: 11/16/22 08:54 Dose: 12.5 mg Midodrine (Midodrine 5 Mg Tab) 5 mg PO AC-BID [facility] Last Admin: 11/16/22 16:27 Dose: 5 mg Miscellaneous Information (Potassium Replacement Protocol 1 Each Misc) 1 each MISCELLANE DAILY PRN; Protocol PRN Reason: Per Protocol Nitroglycerin (Nitroglycerin Sl Tabs 0.4 Mg Tab) 0.4 mg SUBLINGUAL Q5M PRN PRN Reason: Chest Pain Zyrtec 10mg Tablet 1 each PO HS [facility] Last Admin: 11/15/22 20:39 Dose: 1 each Senna/Docusate Sodium (Sennosides-Docusate Sodium 1 Each Tab) 1 each PO HS [facility] Last Admin: 11/15/22 20:40 Dose: 1 each Sodium Chloride (Sodium Chloride 0.65% Nasal [place] 44 Ml Btl) 2 spray NASAL QID PRN PRN Reason: Dry Nasal Passages Sodium Chloride (Saline Nasal Gel 14.1 Gm Tube) 1 applic NASAL Q6H PRN PRN Reason: Dry Nasal Passages PHYSICAL EXAMINATION: GENERAL: The patient is alert and oriented x3, obese. Well developed, well nourished. HEENT: Pupils are round and equally reacting to light. EOMI. No scleral icterus. No conjunctival pallor. Normocephalic, atraumatic. No pharyngeal erythema. No thyromegaly. CARDIOVASCULAR: S1 and S2 muffled PULMONARY: Improved aeration overall, Right lung diminished. Scattered rhonchi noted. ABDOMEN: Soft, obese, nontender, nondistended, normoactive bowel sounds. No palpable organomegaly. MUSCULOSKELETAL: No joint swelling or deformity. EXTREMITIES: No cyanosis, clubbing, or pedal edema. NEUROLOGICAL: Gross neurological examination did not reveal any focal deficits. Generalized weakness SKIN: No rashes. Assessment: Metastatic ovarian cancer with lung involvement and diffuse thoracic adenopathy Acute hypoxic respiratory failure secondary to bilateral pleural effusions and near complete occlusion of the right upper lobe s/p right sided thoracentesis Endobrachial lesion initiated on palliative radiation Brief transient episode of visual disturbance no etiology Positive sputum culture for staph aureus on IV cefazolin Steroid induced hyperglycemia Hyponatremia due to SIADH Acute kidney injury, improving History of malignant pericardial effusion s/p pericardial window Bronchospasm Oral thrush Atrial flutter, paroxysmal GI prophylaxis DVT prophylaxis: Subcu heparin Plan: Patient to continue on IV antibiotics and IV solu-cortef Cytology pending from the thoracentesis, bronchial washings and lung biopsy pending. Initiated on palliative radiation with Dr. Richey following any received radiation last week Tuesday and Patient is continued on fluid restriction 1200 cc and s/p samsca x 2 doses with another dose given today and sodium is 127 awaiting repeat labs this evening, nephrology following Patient is continued on bowel regimen and increasing activity as tolerated Continue accuchecks ACHS and scheduled insulin and levemir have been added for tighter glycemic control, hemoglobin A1c is 7.2 Recommend F/U labs in AM Patient undergo neurological workup as patient had a transient episode of tunnel vision with lightheadedness and dizziness this morning and CT brain was negative. EEG and MRI ordered and neurology following. PT OT pending at this time Overall prognosis is guarded The impression and plan of care has been dictated by Luana Hensley, Nurse Practitioner as directed. Dr. Juan Antonio MD I have performed a history and examination and MDM of this patient, discussed the same with the dictator, and agree with the dictator's assessment and plan as written ,documented as a scribe. Based on total visit time, I have performed more than 50% of the visit. Objective - Vital Signs Vital signs: Vital Signs Temp 97.5 F L 11/16/22 08:45 Pulse 81 11/16/22 09:55 Resp 17 11/16/22 09:55 BP 104/69 11/16/22 09:55 Pulse Ox 95 11/16/22 09:55 FiO2 Intake & Output 11/15/22 11/16/22 11/16/22 18:59 06:59 18:59 Intake Total 180 60 Output Total 850 575 Balance -670 -515 Weight 86.7 kg Intake: IV 10 0.9 10 Intake, IV Titration 50 Amount ceFAZolin 1,000 mg In 50 Sodium Chloride 0.9% 50 ml @ 100 mls/hr IVPB Q8HR [facility] Rx#:[id number] Oral 180 Output: Urine 850 575 Other: Voiding Method Toilet Toilet Toilet # Voids 1 - Labs CBC & Chem 7: 11/16/22 05:36 11/16/22 16:15 Labs: Abnormal Lab Results - Last 24 Hours (Table) 11/15/22 11/15/22 11/15/22 Range/Units 11:50 17:25 20:18 WBC (3.8-10.6) k/uL RBC (3.80-5.40) m/uL Hgb (11.4-16.0) gm/dL MCV (80.0-100.0) fL RDW (11.5-15.5) % Neutrophils # (1.3-7.7) k/uL Sodium (137-145) mmol/L Chloride (98-107) mmol/L BUN (7-17) mg/dL Creatinine (0.52-1.04) mg/dL Glucose (74-99) mg/dL POC Glucose (mg/dL) 204 H 196 H 167 H (70-110) mg/dL 11/16/22 11/16/22 11/16/22 Range/Units 05:36 05:36 08:05 WBC 10.7 H (3.8-10.6) k/uL RBC 3.43 L (3.80-5.40) m/uL Hgb 11.1 L (11.4-16.0) gm/dL MCV 100.3 H (80.0-100.0) fL RDW 17.6 H (11.5-15.5) % Neutrophils # 9.3 H (1.3-7.7) k/uL Sodium 127 L (137-145) mmol/L Chloride 91 L (98-107) mmol/L BUN 52 H (7-17) mg/dL Creatinine 1.45 H (0.52-1.04) mg/dL Glucose 156 H (74-99) mg/dL POC Glucose (mg/dL) 139 H (70-110) mg/dL 11/16/22 Range/Units 09:56 WBC (3.8-10.6) k/uL RBC (3.80-5.40) m/uL Hgb (11.4-16.0) gm/dL MCV (80.0-100.0) fL RDW (11.5-15.5) % Neutrophils # (1.3-7.7) k/uL Sodium (137-145) mmol/L Chloride (98-107) mmol/L BUN (7-17) mg/dL Creatinine (0.52-1.04) mg/dL Glucose (74-99) mg/dL POC Glucose (mg/dL) 219 H (70-110) mg/dL Microbiology - Last 24 Hours (Table) 11/11/22 13:40 Gram Stain - Final Pleural Fluid Body Fluid Culture - Final
[2022-11-16 17:20] LABS: Glucose,Whole Blood 139 mg/dL (70-110)
[2022-11-16 21:17] LABS: Glucose,Whole Blood 199 mg/dL (70-110)
[2022-11-16] MEDS: ZYRTEC 10MG TABLET PO SCH (21:29)
[2022-11-16] MEDS: SENNOSIDES-DOCUSATE SODIUM 1 EACH TAB PO SCH (21:29)
[2022-11-16] MEDS: INSULIN DETEMIR (LEVEMIR) 100 UNIT/ML SYR SQ SCH (21:30)
[2022-11-17] MEDS: IPRATROPIUM-ALBUTEROL 3 ML NEB INHALATION SCH ×6 (03:52→21:09)
[2022-11-17 06:12] LABS: Glucose,Whole Blood 187 mg/dL (70-110)
[2022-11-17] MEDS: MIDODRINE 5 MG TAB PO SCH ×2 (06:36→17:03)
[2022-11-17] MEDS: ALPRAZolam 0.25 MG TAB PO PRN ×3 (06:40→23:40)
[2022-11-17] MEDS: BUDESONIDE 1 MG/2 ML NEBU INHALATION SCH ×2 (09:14→10:14)
[2022-11-17] MEDS: FORMOTEROL FUMARATE 20 MCG/2 ML NEBU INHALATION SCH ×2 (09:14→10:14)
[2022-11-17] MEDS ORDERED: FUROSEMIDE 10 MG/ML 4 ML VIAL IV STA (10:11)
[2022-11-17] MEDS: INSULIN ASPART (NovoLOG) 100 UNIT/ML VIAL SQ SCH ×7 (10:16→20:17)
[2022-11-17] MEDS: FAMOTIDINE 20 MG TAB PO SCH (10:38)
[2022-11-17] MEDS: AMIODARONE 200 MG TAB PO SCH ×2 (10:38→20:12)
[2022-11-17] MEDS: BENZONATATE 100 MG CAP PO SCH ×3 (10:38→20:35)
[2022-11-17] MEDS: HEPARIN SODIUM,PORCINE/PF 5,000 UNIT/0.5 ML SYRINGE SQ SCH ×2 (10:38→20:13)
[2022-11-17] MEDS: HYDROCORTISONE SUCCINATE 100 MG/2 ML VIAL IV SCH (10:38)
[2022-11-17] MEDS: DEMECLOCYCLINE 150 MG TAB PO SCH ×2 (10:39→20:12)
[2022-11-17] MEDS: FLUCONAZOLE 150 MG TAB PO SCH (10:39)
[2022-11-17] MEDS: METOPROLOL TARTRATE 12.5 MG TAB PO SCH ×2 (10:40→20:13)
[2022-11-17] MEDS: FLUTICASONE 50MCG/SPRAY NASAL 16GM EA NOSTRIL SCH ×2 (10:45→20:13)
--- NOTE | 2022-11-17 10:52 | P.PN ---
Subjective Progress Note Date: 11/17/22 This is a 57-year-old female patient of Dr. Aguilar who presented with concerns of increased dyspnea. Patient reports that she was having improvement since previous admission with updraft and prednisone treatment but starts developing increased wheezing and shortness breath increasing over the past few days. patient has extensive medical history including ovarian cancer which was diagnosed 14 years ago and has been maintained on chemo therapy. Additional medical history includes previous episode of pericardial effusion with pericardial window. Chest x-ray showing cardiomegaly with mild pulmonary vascular congestion correlate with BMP for congestive heart failure. COPD changes. Chest CTA completed showing no evidence of pulmonary embolism U small bilateral pleural effusions him a new small pericardial effusion new pulmonary vascular congestion and cardiomegaly correlate with serum BNP. This time patient will be admitted patient's BREATHING treatments, IV Lasix, Solu-Medrol. Pulmonary cardiology and oncology services will be consulted. On 11/01/2022 patient was seen and examined on the telemetry floor she is alert and oriented 3 in no apparent distress she reports improvement in her shortness of breath otherwise she denies any complaints there is no fever or chills no headache or dizziness no chest pain no palpitation no nausea or vomiting no abdominal pain no diarrhea no blood in the stools no burning with urination no frequency or urgency and no hematuria On 11/02/2022 patient was seen and examined on the telemetry floor she is reporting improvement in her shortness of breath, otherwise she denies any complaints there is no fever or chills no headache or dizziness no chest pain no palpitation she has occasional cough no nausea or vomiting no abdominal pain no diarrhea no blood in the stools no burning with urination no frequency or urgency no hematuria. On 11/03/2022 patient is alert and oriented 3. Patient continued to show improvement in regards to breathing. Discussed case with pulmonary team patient will continue IV steroids no plans for bronchoscopy at this time. Patient denies chest pain. Patient denies nausea vomiting or diarrhea. Patient denies any urinary frequency. On 11/04/2022 patient was seen and examined on the medical floor, she is alert and oriented 3 in no apparent distress there is no fever or chills no headache or dizziness no chest pain no shortness of breath no cough no nausea or vomiting no abdominal pain no diarrhea and no urinary symptoms. At this time patient is being switched to oral prednisone and oral Lasix, no plans per pulmonary for bronchoscopy this time, patient has not been yet cleared for discharge, will continue to follow closely. 11/05/2022 patient is alert and oriented 3. Patient having increasing shortness of breath and crackles today. Patient has been transitioned to by mouth prednisone will discuss case with pulmonary services for possible bronchoscopy. Patient remains on Lasix. Her vital signs as 7.6, heart rate 98, respiratory rate 20, blood pressure 126/64 95% on 2 L On 11/06/2022 patient was seen and examined on the telemetry floor she is alert and oriented 3 in no apparent distress, she is reporting some improvement in her shortness of breath since yesterday she is still having occasional cough there is no fever or chills no headache or dizziness no chest pain no nausea or vomiting no abdominal pain no diarrhea no blood in the stools no burning with urination no frequency or urgency and no hematuria. Plan per pulmonary is to continue with current management at this time and to proceed with bronchoscopy on Tuesday. On 11/07/2022 patient is alert and oriented 3. Patient reports improvement with shortness of breath. Plans for bronchoscopy tomorrow and patient also had an episode of atrial flutter cardiology services have been consulted. Heart rate has improved. This time patient denies chest pain. Patient denies nausea vomiting or diarrhea. Patient denies any urinary burning or frequency. On 11/08/2022 patient was seen and examined on the medical floor she is alert and oriented 3 in no apparent distress there is no fever or chills no headache or dizziness no chest pain, she is still complaining of shortness of breath and cough no nausea or vomiting no abdominal pain no diarrhea and no urinary symptoms On 11/09/2022 patient was seen and examined on the medical floor she is alert and oriented 3 in no apparent distress, she is complaining of muscle cramps and pain otherwise she denies any complaints there is no fever or chills no headache or dizziness no chest pain, she is still complaining of shortness of breath and cough no nausea or vomiting no abdominal pain no diarrhea and no urinary symptoms. Gray was added for pain, consultation was added for nephrology regarding hyponatremia. On 11/10/2022 patient is alert and oriented 3. Patient having increased wheezing today. Per oncology arranging for possible inpatient palliative radiation to endobronchial bronchial lesions causing near-complete occlusion of the right upper lobe. Patient also being followed by nephrology services for hyponatremia sodium improving slightly to 122. at this time patient denies chest pain. Denies nausea vomiting or diarrhea. Patient denies any urinary burning or frequency. On 11/11/2022 patient is alert and oriented 3. Plans for palliative radiation today and tomorrow for endobronchial lesions. This time patient remains with audible wheezing and shortness of breath. Patient denies chest pain. Patient denies nausea vomiting or diarrhea. Patient denies any urinary burning or frequency. Sodium 126. Dr. Romano's group covering from 11/12/2022- 11/17/2022 On 11/17/2022 patient is alert and oriented 3. Patient has underwent pa lliative radiation. Apparently patient had episodes of tunnel vision and dizziness. Patient was evaluated by neurology services CT of the brain completed showing no acute process. Nephrology services were consulted and MRI and EEG has been ordered. Nephrology services continue to follow her hypo natremia. Objective - Vital Signs Vital signs: Vital Signs Temp 97.5 F L 11/17/22 03:25 Pulse 84 11/17/22 10:36 Resp 18 11/17/22 03:25 BP 104/72 11/17/22 03:25 Pulse Ox 100 11/17/22 10:14 FiO2 Intake & Output 11/16/22 11/17/22 11/17/22 18:59 06:59 18:59 Intake Total 60 Output Total 300 Balance -240 Intake: IV 10 0.9 10 Intake, IV Titration 50 Amount ceFAZolin 1,000 mg In 50 Sodium Chloride 0.9% 50 ml @ 100 mls/hr IVPB Q8HR [facility] Rx#:[id number] Output: Urine 300 Other: Voiding Method Toilet Toilet # Voids 1 - Exam In general patient is alert and oriented x 3 in no distress HEENT head normocephalic and atraumatic Neck is supple no JVD no goiter no lymphadenopathy no carotid bruit Chest examination is clear to auscultation no crackles no wheezing Cardiac exam reveals regular heart sounds S1 and S2 no gallops no murmurs Abdomen is soft nontender no organomegaly with normal bowel sounds Extremity exam reveals no edema no cyanosis or clubbing Neurological examination reveals no gross focal deficits - Labs CBC & Chem 7: 11/16/22 05:36 11/16/22 16:15 Labs: Abnormal Lab Results - Last 24 Hours (Table) 11/16/22 11/16/22 11/16/22 Range/Units 12:02 16:15 17:08 Sodium 127 L (137-145) mmol/L POC Glucose (mg/dL) 227 H 139 H (70-110) mg/dL 11/16/22 11/17/22 Range/Units 21:15 06:09 Sodium (137-145) mmol/L POC Glucose (mg/dL) 199 H 187 H (70-110) mg/dL Assessment and Plan Assessment: 1. Acute on chronic hypoxic respiratory failure 2. Pericardial effusion on computed tomography scan of the chest 3. History of pericardial window 4. History of ovarian cancer with metastatic disease 5. Bronchospasms 6. History of oral thrush 7. Atrial flutter. Cardiology services consulted 8. Status post bronchoscopy on 11/08/2022 findings of new endobronchial lesions with near-complete occlusion of the right upper lobe 9. Hyponatremia per nephrology high suspicion for underlying SIADH. 10. Dizziness and tunnel vision. Neurology services were consulted and MRI EEG has been ordered 11. Positive sputum culture for staph aureus. Maintain on IV cefazolin Pulmonary cardiology service is consulted s/p bronchoscopy on 11/08/2022 radiation to endobronchial lesions on 11/11/2022 and 11/12/2022 MRI and EEG ordered per neurology Repeat labs ordered
[2022-11-17] MEDS: guaiFENesin-DM 100-10MG/5ML 10 ML CUP PO PRN ×3 (10:54→20:35)
--- NOTE | 2022-11-17 11:16 | P.PN ---
Subjective Progress Note Date: 11/17/22 Principal diagnosis: Ovarian cancer. Reevaluated today on 11/11/2022, patient is about the same, continues to have cough and shortness. Had a long discussion with Dr. Richey yesterday regarding case, and he is planning to radiation therapy. In the meantime he showed me the CT of the chest which was done prior, and the patient seems to be developing bilateral pleural effusions, right more so on the left, I would recommend an ultrasound of the chest today, and the fluid is large enough would proceed with a right-sided thoracentesis mostly for diagnostic and therapeutic purposes. WBC count today is 17.5 hemoglobin is 10.6 sodium is up to 126. BUN is 53 creatinine 1.84. Patient is on fluid restriction, she is also on tolvaptan and she remains on demeclocycline. Her hydrocortisone dose will be cut down to 50 mg every 8 hours Patient was reevaluated today on 11/12/2022, patient continues to have cough and shortness of breath, had radiation treatment yesterday, she had right-sided thoracentesis yesterday, and I drained about 1000 mL of serosanguineous pleural effusion most likely malignant unless for otherwise. Cytology is pending. The fluid is exudative in nature, has LDH of 231 and a relatively elevated protein of 3040. Cytology is pending. Looking at the chest x-ray from yesterday, the left-sided pleural effusion is rather small, and I'm not recommending thoracentesis on the left pleural effusion at this point. Seems to be much smaller than the right side. Not to mention, awaiting cytology from the right- sided pleural effusion and we'll address that accordingly. Patient was reevaluated today on 11/13/2022, patient is mostly complaining of generalized weakness, fatigue, shortness of breath upon any activity, and weakness more pronounced than ever. Hence I'm recommending a Cortrosyn stimulation test on this patient patient has been on stress doses of hydrocortisone all along. Sodium is better, her labs are improving, cytology from the pleural effusion is pending biopsy results from the endobronchial tumors are pending patient had radiation already by Dr. Richey. Her labs today showed WBC count of 15.3 hemoglobin 10.9 sodium is 130 renal profile is improving BUN is 48 creatinine 1.47 Reevaluated today on 11/14/2022, patient is on 2 L nasal cannula O2 sats is on the percent. Feeling a bit better, able to take deeper breaths today compared to the last few days. However her sodium is down to 125, being addressed by nephrology. Remained generally weak. WBC 12.4 hemoglobin 10.8. BUN is 45 creatinine down to 1.39. Progress note dated 11/15/2022. The patient is seen today in room 355. She is currently on 2 L of oxygen. She 's getting saline at keep vein open. This morning, pathology was still pending. This included pathology on the pleural fluid, as well as on the bronchoscopy, and biopsies. She feels very short of breath, very fatigued and weak. Physical therapy has been ordered for this patient. White count 13, hemoglobin 10.7, hematocrit 34, with a normal platelet count. Sodium 124, potassium 4.2, chlorides 88, CO2 24, BUN 50, creatinine 1.22. Bronchial washings were positive for staph aureus. Chest x-ray shows some patchy infiltrates, left lower lobe. The patient continues on Ancef. Progress note dated 11/16/2022. The patient is seen today in room 355. She is currently on oxygen, at 2 L. She's getting saline at KVO. The pathology reports, finally did come back, showing tumor in the lung, consistent with the patient's primary ovarian carcinoma. The pleural fluid cytology was negative. Results of the biopsy were shared with the patient. Currently, the patient's biggest issue is some mild shortness of breath fatigue, and cough. All are being addressed. Lab data included a white count of 10.7, hemoglobin 11.1, hematocrit 34.4, and a normal platelet count. Sodium is 127, potassium 5, chlorides 91, CO2 28, BUN 52, and creatinine 1.45. Bronchial washings from November 08 show evidence of Staphylococcus aureus. Chest x-ray from November 15 show some infiltrate, or atelectasis, at the left lung base. Progress note dated 11/17/2022. The patient is seen today in room 355. She's currently on oxygen at 2.5 L. Her major issue is shortness of breath on exertion, and overwhelming fatigue. The patient had a brain CT, which was negative. She has not been seen by medical oncology since November 11. They need to get in there and talk to her about the next steps. No new labs today other than a glucose of 187. Bronchial washings were positive for Staphylococcus aureus. Objective - Vital Signs Vital signs: Vital Signs Temp 97.5 F L 11/17/22 03:25 Pulse 84 11/17/22 10:36 Resp 18 11/17/22 03:25 BP 104/72 11/17/22 03:25 Pulse Ox 100 11/17/22 10:14 FiO2 Intake & Output 11/16/22 11/17/22 11/17/22 18:59 06:59 18:59 Intake Total 60 Output Total 300 Balance -240 Intake: IV 10 0.9 10 Intake, IV Titration 50 Amount ceFAZolin 1,000 mg In 50 Sodium Chloride 0.9% 50 ml @ 100 mls/hr IVPB Q8HR [facility] Rx#:[id number] Output: Urine 300 Other: Voiding Method Toilet Toilet # Voids 1 - Exam No acute distress, oriented 3. Currently on 2.5 L. No respiratory distress. No conversational dyspnea. HEENT examination is grossly unremarkable. Mucous membranes are moist. No oral lesions. Neck supple. Full range of motion. No adenopathy thyromegaly or neck vein distention. Cardiovascular examination reveals regular rhythm rate. S1-S2 normal. No S3 or S4. No discernible murmur noted. Heart rate 84 bpm. Lungs reveal scattered rhonchi, particularly in the right lung. Mild expiratory wheezes. No crackles. Saturations are excellent. Saturations are 100%. Abdomen soft bowel sounds are heard. No masses or tenderness. Extremities are intact. No cyanosis clubbing or edema. Skin is without rash or lesion. Neurologic examination is brief but nonfocal. - Labs CBC & Chem 7: 11/16/22 05:36 11/16/22 16:15 Labs: Abnormal Lab Results - Last 24 Hours (Table) 11/16/22 11/16/22 11/16/22 Range/Units 12:02 16:15 17:08 Sodium 127 L (137-145) mmol/L POC Glucose (mg/dL) 227 H 139 H (70-110) mg/dL 11/16/22 11/17/22 Range/Units 21:15 06:09 Sodium (137-145) mmol/L POC Glucose (mg/dL) 199 H 187 H (70-110) mg/dL Assessment and Plan Assessment: Acute shortness of breath, likely multifactorial, in part related to mild fluid overload/CHF, acute bronchitis with bronchospasm, as well as possible iatrogenic pneumonitis, related to Zejula. Metastatic ovarian carcinoma, with significant endobronchial disease in the right upper lobe, right middle lobe, and right lower lobe, status post bronchoscopy, with pathology positive for metastatic ovarian carcinoma. Paroxysmal atrial flutter. Status post right-sided thoracentesis, cytology negative. Hyponatremia, secondary to SIADH. Staph. aureus, bronchopneumonia/tracheobronchitis, currently on Ancef. Rule out active infection/bronchopneumonia, less likely. Metastatic ovarian carcinoma, diagnosed in 2008, with recurrence. The patient has diffuse adenopathy, both in the abdominal cavity and thoracic cavity. Metastatic pulmonary nodule. History of malignant pericardial effusion, status post pericardial window. Plan: Plan dated 10/31/2022. A pro-calcitonin level will be checked. Currently, the patient's on Pulmicort 1 mg, twice a day, mixed with formoterol, 20 g, twice a day. In addition, the patient's receiving updrafts with albuterol sulfate and ipratropium bromide. The patient is also on Solu-Medrol, 60 mg every 6 hours. Finally, the patient was placed on Rocephin, which was given to her in the emergency department. Labs, x-rays, medications are all reviewed. The patient is also receiving some Lasix, for possible mild fluid overload, although the N-terminal proBNP level was only 443. We will continue to follow the patient and make recommendations along the way. Her respiratory status appears to be relatively stable at this time. Plan dated 11/15/2022. The patient remains on 2 L of oxygen. She's received some radiation to the right chest area, with some improvement in her breathing. Her lung sounds are improved on the right side. The patient is on a fluid restriction for SIADH. She is also receiving treatment for same. Pathology reports, on the bronchoscopy, and cytology reports, on the pleural fluid, are pending. Physical therapy has been ordered for this patient. Labs, x-rays, medications are reviewed. Prognosis is certainly very guarded. Plan dated 11/16/2022. The patient remains on 2 L of oxygen. Saturations ranged from 95%, up to 98%. The patient complains primarily of fatigue, and cough. The cough likely reflects irritation from the endobronchial tumor. Pathology reports on the bronchoscopy and biopsy, were positive for metastatic ovarian carcinoma. Pleural fluid cytology was negative. The patient was seen by physical therapy yesterday. We will continue to follow and make recommendations along the way. She is to receive additional radiation. She remains on Ancef for her staph infection. Prognosis is very guarded. Plan dated 11/17/2022. The patient remains on oxygen at 2.5 L. Saturations are 100%. The oxygen can be titrated down. The patient's major complaint is that of fatigue. Labs, x-rays, and medications are reviewed. She has not been seen by medical oncology and a number of days, and they should get back in there to see her and discuss the next steps. The patient continues on Ancef. The patient's hydrocortisone was converted to prednisone 30 mg a day. Also, the patient's budesonide, and formoterol, are changed to Symbicort. Additional recommendations and suggestions are forthcoming. We will continue to follow. The prognosis is guarded. Time with Patient: Less than 30
--- NOTE | 2022-11-17 11:34 | P.PN ---
Subjective Patient is seen for f/u for hyponatremia secondary to SIADH Receiving Samsca daily. Patient is also maintained on demeclocycline. Urine osmolality was high at 535 Creatinine at 1.45 yesterday. Labs are still pending from today. Patient is trying to be compliant with fluid restriction. Status post sodium chloride tablets yesterday. O2 requirement slightly increased. Status post radiation therapy today. Objective - Vital Signs Vital signs: Vital Signs Temp 97.5 F L 11/17/22 03:25 Pulse 84 11/17/22 10:36 Resp 18 11/17/22 03:25 BP 104/72 11/17/22 03:25 Pulse Ox 100 11/17/22 10:14 FiO2 Intake & Output 11/16/22 11/17/22 11/17/22 18:59 06:59 18:59 Intake Total 60 Output Total 300 Balance -240 Intake: IV 10 0.9 10 Intake, IV Titration 50 Amount ceFAZolin 1,000 mg In 50 Sodium Chloride 0.9% 50 ml @ 100 mls/hr IVPB Q8HR [facility] Rx#:[id number] Output: Urine 300 Other: Voiding Method Toilet Toilet # Voids 1 - Exam Awake , comfortable, no acute distress. A and O x3 Lungs show decreased breath sounds right lung CVS S1 and S2 Extremities show 1+ edema. SHIRT SORTER exam is grossly intact. - Labs CBC & Chem 7: 11/16/22 05:36 11/16/22 16:15 Labs: Abnormal Lab Results - Last 24 Hours (Table) 11/16/22 11/16/22 11/16/22 Range/Units 12:02 16:15 17:08 Sodium 127 L (137-145) mmol/L POC Glucose (mg/dL) 227 H 139 H (70-110) mg/dL 11/16/22 11/17/22 Range/Units 21:15 06:09 Sodium (137-145) mmol/L POC Glucose (mg/dL) 199 H 187 H (70-110) mg/dL Assessment and Plan Assessment: 1. Hyponatremia, mildly hypervolemic. 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 Urine osmolality 535. Receiving Samsca daily. Patient is also maintained on demeclocycline. Status post sodium chloride tab 2. Metastatic ovarian cancer with metastases to the lungs and pericardial effusion, status post pericardial window 3. New onset paroxysmal atrial flutter now in sinus rhythm 4. Acute hypoxic respiratory failure associated with significant involvement of the right lung with tumor and near occlusion of the bronchus. Significant right pleural effusion noted, s/p thoracentesis. 5. Acute kidney injury secondary to NSAIDs in the setting of hypotension, improving. Plan: Lasix 40 mg IV 1 Follow-up on labs from today [facility] based on labs from today.
[2022-11-17 11:42] LABS: Glucose,Whole Blood 208 mg/dL (70-110)
[2022-11-17 11:57] LABS: Anisocytosis Slight; Basophils % (A) 0 %; Eosinophils % (A) 0 %; HCT 34.5 % (34.0-46.0); HGB 10.7 gm/dL (11.4-16.0); Hypochromasia Slight; Lymphocytes # (A) 1.4 k/uL (1.0-4.8); Lymphocytes % (A) 13 %; MCH 31.6 pg (25.0-35.0); MCV 101.9 fL (80.0-100.0); Macrocytosis Moderate; Mean Platelet Volume 7.9; Monocytes # (A) 0.3 k/uL (0-1.0); Monocytes % (A) 3 %; Neutrophils # (A) 9.5 k/uL (1.3-7.7); Neutrophils % (A) 84 %; Platelet Count 214 k/uL (150-450); RBC 3.38 m/uL (3.80-5.40); RDW 17.8 % (11.5-15.5); WBC 11.4 k/uL (3.8-10.6)
[2022-11-17 12:01] LABS: ALT 16 U/L (4-34); AST 31 U/L (14-36); African American GFR (CKD) 38 (>60 ml/min/1.73 sqM); Albumin 3.4 g/dL (3.5-5.0); Alkaline Phosphatase 163 U/L (38-126); Anion Gap 11 mmol/L; Blood Urea Nitrogen 58 mg/dL (7-17); Calcium 8.8 mg/dL (8.4-10.2); Carbon Dioxide 26 mmol/L (22-30); Chloride 88 mmol/L (98-107); Glucose 158 mg/dL (74-99); Non-African American GFR(CKD) 33 (>60 ml/min/1.73 sqM); Potassium 4.7 mmol/L (3.5-5.1); Sodium 125 mmol/L (137-145); Total Bilirubin 0.6 mg/dL (0.2-1.3)
--- NOTE | 2022-11-17 15:57 | P.PN ---
Subjective Progress Note Date: 11/17/22 Principal diagnosis: metastatic ovarian cancer At today's visit patient is resting comfortably in bedside chair. Reports SOB has improved today. Patient reports weakness. Continues on breathing treatments, inhalers and prednisone. Sodium 125, nephrology following. No other reported complaints at this time Objective - Vital Signs Vital signs: Vital Signs Temp 97.5 F L 11/17/22 03:25 Pulse 84 11/17/22 10:36 Resp 18 11/17/22 09:30 BP 104/72 11/17/22 03:25 Pulse Ox 100 11/17/22 10:14 FiO2 Intake & Output 11/16/22 11/17/22 11/17/22 18:59 06:59 18:59 Intake Total 60 Output Total 300 800 Balance -240 -800 Intake: IV 10 0.9 10 Intake, IV Titration 50 Amount ceFAZolin 1,000 mg In 50 Sodium Chloride 0.9% 50 ml @ 100 mls/hr IVPB Q8HR [facility] Rx#:[id number] Output: Urine 300 800 Other: Voiding Method Toilet Toilet Toilet # Voids 1 - Constitutional General appearance: Present: average body habitus, no acute distress - EENT Eyes: Present: anicteric sclerae, EOMI ENT: Present: hearing grossly normal - Respiratory Details: breathing even and unlabored - Cardiovascular Details: skin warm and dry - Peripheral edema leg Peripheral Edema: bilateral: 3+, Pitting - Integumentary Integumentary: Absent: cyanotic - Musculoskeletal Musculoskeletal: Present: generalized weakness - Psychiatric Psychiatric: Present: A&O x's 3, appropriate affect, intact judgment & insight - Labs CBC & Chem 7: 11/17/22 10:28 11/17/22 10:28 Labs: Abnormal Lab Results - Last 24 Hours (Table) 11/16/22 11/16/22 11/16/22 Range/Units 16:15 17:08 21:15 WBC (3.8-10.6) k/uL RBC (3.80-5.40) m/uL Hgb (11.4-16.0) gm/dL MCV (80.0-100.0) fL RDW (11.5-15.5) % Neutrophils # (1.3-7.7) k/uL Sodium 127 L (137-145) mmol/L Chloride (98-107) mmol/L BUN (7-17) mg/dL Creatinine (0.52-1.04) mg/dL Glucose (74-99) mg/dL POC Glucose (mg/dL) 139 H 199 H (70-110) mg/dL Alkaline Phosphatase (38-126) U/L Total Protein (6.3-8.2) g/dL Albumin (3.5-5.0) g/dL 11/17/22 11/17/22 11/17/22 Range/Units 06:09 10:28 10:28 WBC 11.4 H (3.8-10.6) k/uL RBC 3.38 L (3.80-5.40) m/uL Hgb 10.7 L (11.4-16.0) gm/dL MCV 101.9 H (80.0-100.0) fL RDW 17.8 H (11.5-15.5) % Neutrophils # 9.5 H (1.3-7.7) k/uL Sodium 125 L (137-145) mmol/L Chloride 88 L (98-107) mmol/L BUN 58 H (7-17) mg/dL Creatinine 1.70 H (0.52-1.04) mg/dL Glucose 158 H (74-99) mg/dL POC Glucose (mg/dL) 187 H (70-110) mg/dL Alkaline Phosphatase 163 H (38-126) U/L Total Protein 6.0 L (6.3-8.2) g/dL Albumin 3.4 L (3.5-5.0) g/dL 11/17/22 Range/Units 11:38 WBC (3.8-10.6) k/uL RBC (3.80-5.40) m/uL Hgb (11.4-16.0) gm/dL MCV (80.0-100.0) fL RDW (11.5-15.5) % Neutrophils # (1.3-7.7) k/uL Sodium (137-145) mmol/L Chloride (98-107) mmol/L BUN (7-17) mg/dL Creatinine (0.52-1.04) mg/dL Glucose (74-99) mg/dL POC Glucose (mg/dL) 208 H (70-110) mg/dL Alkaline Phosphatase (38-126) U/L Total Protein (6.3-8.2) g/dL Albumin (3.5-5.0) g/dL Assessment and Plan (1) Acute bronchospasm Current Visit: Yes Status: Acute Priority: High Code(s): J98.01 - ACUTE BRONCHOSPASM SNOMED Code(s): 16321276019831 (2) Primary malignant neoplasm of ovary with widespread metastatic disease Current Visit: Yes Status: Chronic Priority: High Code(s): C56.9 - MALIGNANT NEOPLASM OF UNSPECIFIED OVARY; C80.0 - DISSEMINATED MALIGNANT NEOPLASM, UNSPECIFIED SNOMED Code(s): 221644501 (3) Macrocytic anemia Current Visit: Yes Status: Chronic Priority: Medium Code(s): D53.9 - NUTRITIONAL ANEMIA, UNSPECIFIED SNOMED Code(s): 36443240 Plan: Wheezing, dyspnea -Recurrent after completing prednisone taper from admit 10/07/2022 -S/p right sided thoracentesis with 950 mL removed and broncoscopy with lavage/washing and biopsy of RUL/RML. right pleural fluid negative for malignancy. Right upper lobe brushing compatible with non-small cell carcinoma. Right upper lobe and right middle lobe transbronchial biopsy positive for metastatic non-mucinous mullerian/ovarian carcinoma -Radiation Oncology evaluation. Has completed 3/5 fractions of palliative radiation to endobronchial lesions -Continues on prednisone, breathing treatments and inhalers -Will plan on 6 week slow taper for treatment of likely underlying pneumonitis 2/2 niraparib treatment, complicated by metastatic disease and possible pneumonia. -pulmonology following Metastatic ovarian adenocarcinoma: -Follows with Dr. Thibodeaux and Dr. Cerda. -Completed 7 cycles of Doxil/carbo 03/06, maintenance Zejula 05/2022-09/10/22 -Pericardial fluid and pericardium biopsy obtained 08/05, were positive for me tastatic ovarian carcinoma, PET showed metastatic disease in July. -Dr. Thibodeaux recommended optimizing her pulmonary function prior to proceeding with additional treatment -F/U with Dr. Thibodeaux was missed due to hospitalization, pt will reschedule upon discharge. Macrocytic anemia -Hgb near baseline, stable 11.1 -Anemia likely due to Hx of chemotherapy -No nutritional deficiency anemias noted. TSH WNL -Transfuse if symptomatic or Hgb <7. Hyponatremia -SIADH from malignancy -Nephrology has been following. -Demeclocycline ordered and pt placed on fluid restrictions, Sodium 125 today
[2022-11-17] MEDS ORDERED: TOLVAPTAN 15 MG TABLET PO ONE (16:15)
[2022-11-17] MEDS ORDERED: TOLVAPTAN 30 MG TABLET PO ONE (16:15)
--- NOTE | 2022-11-17 16:17 | P.PN ---
Subjective Progress Note Date: 11/17/22 The patient seen at bedside in no further events of tunnel vision or visual disturbance. No episodes of presyncopal or any seizure-like activity. Objective - Vital Signs Vital signs: Vital Signs Temp 97.5 F L 11/17/22 03:25 Pulse 82 11/17/22 14:00 Resp 21 11/17/22 14:00 BP 106/70 11/17/22 09:30 Pulse Ox 100 11/17/22 10:14 FiO2 Intake & Output 11/16/22 11/17/22 11/17/22 18:59 06:59 18:59 Intake Total 60 Output Total 300 800 Balance -240 -800 Intake: IV 10 0.9 10 Intake, IV Titration 50 Amount ceFAZolin 1,000 mg In 50 Sodium Chloride 0.9% 50 ml @ 100 mls/hr IVPB Q8HR [facility] Rx#:[id number] Output: Urine 300 800 Other: Voiding Method Toilet Toilet Toilet # Voids 1 - Exam Exam: Patient is alert oriented 3. No aphasia. No dysarthria. Some of the workup during his hospital visit consisted of: Vitamin B12 is 405 TSH is 0.607. Hemoglobin A1c 7.2 Seems her sugar was 219 close to 10:[address] of the head is reported as no acute cranial process. Follow-up MRI can be performed as clinically indicated. I personally reviewed the CT and I agree with the report - Labs CBC & Chem 7: 11/17/22 10:28 11/17/22 10:28 Labs: Abnormal Lab Results - Last 24 Hours (Table) 11/16/22 11/16/22 11/16/22 Range/Units 16:15 17:08 21:15 WBC (3.8-10.6) k/uL RBC (3.80-5.40) m/uL Hgb (11.4-16.0) gm/dL MCV (80.0-100.0) fL RDW (11.5-15.5) % Neutrophils # (1.3-7.7) k/uL Sodium 127 L (137-145) mmol/L Chloride (98-107) mmol/L BUN (7-17) mg/dL Creatinine (0.52-1.04) mg/dL Glucose (74-99) mg/dL POC Glucose (mg/dL) 139 H 199 H (70-110) mg/dL Alkaline Phosphatase (38-126) U/L Total Protein (6.3-8.2) g/dL Albumin (3.5-5.0) g/dL 11/17/22 11/17/22 11/17/22 Range/Units 06:09 10:28 10:28 WBC 11.4 H (3.8-10.6) k/uL RBC 3.38 L (3.80-5.40) m/uL Hgb 10.7 L (11.4-16.0) gm/dL MCV 101.9 H (80.0-100.0) fL RDW 17.8 H (11.5-15.5) % Neutrophils # 9.5 H (1.3-7.7) k/uL Sodium 125 L (137-145) mmol/L Chloride 88 L (98-107) mmol/L BUN 58 H (7-17) mg/dL Creatinine 1.70 H (0.52-1.04) mg/dL Glucose 158 H (74-99) mg/dL POC Glucose (mg/dL) 187 H (70-110) mg/dL Alkaline Phosphatase 163 H (38-126) U/L Total Protein 6.0 L (6.3-8.2) g/dL Albumin 3.4 L (3.5-5.0) g/dL 11/17/22 Range/Units 11:38 WBC (3.8-10.6) k/uL RBC (3.80-5.40) m/uL Hgb (11.4-16.0) gm/dL MCV (80.0-100.0) fL RDW (11.5-15.5) % Neutrophils # (1.3-7.7) k/uL Sodium (137-145) mmol/L Chloride (98-107) mmol/L BUN (7-17) mg/dL Creatinine (0.52-1.04) mg/dL Glucose (74-99) mg/dL POC Glucose (mg/dL) 208 H (70-110) mg/dL Alkaline Phosphatase (38-126) U/L Total Protein (6.3-8.2) g/dL Albumin (3.5-5.0) g/dL Assessment and Plan Assessment: Transient episode of visual disturbance in which the patient had tunnel vision, feeling lightheaded and dizzy lasting about 5 minutes: Unknown exact etiology rule out brain metastases vs leptomeningeal spread vs ?seizure. Her sugar was 219 during the episode History of recurrent episodes of visual disturbance with dizziness lightheadedness and feeling vision is tunnel and she stated that with these episodes she has hypoglycemia Acute shortness of breath and felt related to mild fluid overload/congestive heart failure, acute bronchitis as well as possible E ectogenic pneumonitis Acute hyponatremia and is felt secondary due to SIADH--improving History of ovarian cancer diagnosed in 2008 metastases to the lungstatus post hysterectomy, multiple chemotherapy and had radiation therapy that has focal recently. Last chemotherapy was in February 2022. Diabetes mellitus Paroxysmal atrial fibrillation History of right-sided thoracentesis Staph aureus pneumonia History of malignant pericardial effusion status post pericardial window Plan: Pending routine EEG. Patient was to hold off with MRI of the brain will told breathing improves. IF Patient continues to have these symptoms consider lumbar puncture to rule out her any meningeal metastasis Pulmonary, ID, oncology, radiation oncology nephrology on board. We'll defer the rest of the management to the primary and other specialists. The plan was discussed with the patient, her who is at bedside. Time with Patient: Less than 30
[2022-11-17 16:34] LABS: Glucose,Whole Blood 163 mg/dL (70-110)
[2022-11-17 19:56] LABS: Glucose,Whole Blood 146 mg/dL (70-110)
[2022-11-17] MEDS: INSULIN DETEMIR (LEVEMIR) 100 UNIT/ML SYR SQ SCH (20:13)
[2022-11-17] MEDS: ZYRTEC 10MG TABLET PO SCH (20:13)
[2022-11-17] MEDS: SENNOSIDES-DOCUSATE SODIUM 1 EACH TAB PO SCH (20:13)
[2022-11-17] MEDS: SYMBICORT 160-4.5 MCG INHALER INHALATION SCH (21:08)
--- NOTE | 2022-11-17 22:06 | EEG ---
ELECTROENCEPHALOGRAM REPORT CLINICAL HISTORY: This is a 57-year-old woman with recurrent visual disturbance with dizziness. The video EEG is obtained to evaluate for seizure epileptiform activity. RELEVANT MEDICATION: The patient is not on any antiepileptic drugs. EEG TYPE: A routine 21-channel EEG is performed with video using the 10/20 electrode placement system. DESCRIPTION: Wakefulness is only obtained. During awake state, the posterior-dominant rhythm consists of [id number] voltage of 9 to 10 hertz activity that is well modulated, well sustained. There is no physiological stage 2 sleep architecture. There is no focal slowing. Her interictal and ictal are none. ACTIVATION PROCEDURE: Photic stimulation did not evoke a posterior driving response. There is no abnormality during the photic stimulation. Hyperventilation is not performed. CLINICAL INTERPRETATION: This is a normal routine EEG. There is no focal slowing, epileptiform discharges or seizure on the EEG. A normal routine EEG does not rule out underlying epilepsy. Clinical correlation is recommended. MMJANELL / CHAD: [id number] /
[2022-11-18] MEDS: IPRATROPIUM-ALBUTEROL 3 ML NEB INHALATION SCH ×6 (00:24→21:31)
[2022-11-18] MEDS: ALPRAZolam 0.25 MG TAB PO PRN ×3 (03:46→21:22)
[2022-11-18] MEDS: guaiFENesin-DM 100-10MG/5ML 10 ML CUP PO PRN ×3 (03:46→21:22)
[2022-11-18 05:59] LABS: Glucose,Whole Blood 118 mg/dL (70-110)
[2022-11-18] MEDS: INSULIN ASPART (NovoLOG) 100 UNIT/ML VIAL SQ SCH ×7 (06:14→21:12)
[2022-11-18] MEDS: MIDODRINE 5 MG TAB PO SCH ×3 (06:41→17:11)
[2022-11-18] MEDS: DOCUSATE 100 MG CAP PO PRN (06:41)
[2022-11-18] MEDS: SYMBICORT 160-4.5 MCG INHALER INHALATION SCH ×2 (08:39→21:31)
[2022-11-18] MEDS: AMIODARONE 200 MG TAB PO SCH ×2 (09:27→21:22)
[2022-11-18] MEDS: BENZONATATE 100 MG CAP PO SCH ×3 (09:27→21:22)
[2022-11-18] MEDS: FAMOTIDINE 20 MG TAB PO SCH (09:27)
[2022-11-18] MEDS: predniSONE 10 MG TAB PO SCH (09:27)
[2022-11-18] MEDS: METOPROLOL TARTRATE 12.5 MG TAB PO SCH ×2 (09:27→21:22)
[2022-11-18] MEDS: HEPARIN SODIUM,PORCINE/PF 5,000 UNIT/0.5 ML SYRINGE SQ SCH ×2 (09:28→21:22)
[2022-11-18] MEDS: DEMECLOCYCLINE 150 MG TAB PO SCH ×2 (09:29→21:22)
[2022-11-18] MEDS: FLUCONAZOLE 150 MG TAB PO SCH (09:29)
[2022-11-18] MEDS: FLUTICASONE 50MCG/SPRAY NASAL 16GM EA NOSTRIL SCH ×2 (09:30→21:22)
--- NOTE | 2022-11-18 10:13 | P.PN ---
Subjective Progress Note Date: 11/18/22 Principal diagnosis: Ovarian cancer. Reevaluated today on 11/11/2022, patient is about the same, continues to have cough and shortness. Had a long discussion with Dr. Richey yesterday regarding case, and he is planning to radiation therapy. In the meantime he showed me the CT of the chest which was done prior, and the patient seems to be developing bilateral pleural effusions, right more so on the left, I would recommend an ultrasound of the chest today, and the fluid is large enough would proceed with a right-sided thoracentesis mostly for diagnostic and therapeutic purposes. WBC count today is 17.5 hemoglobin is 10.6 sodium is up to 126. BUN is 53 creatinine 1.84. Patient is on fluid restriction, she is also on tolvaptan and she remains on demeclocycline. Her hydrocortisone dose will be cut down to 50 mg every 8 hours Patient was reevaluated today on 11/12/2022, patient continues to have cough and shortness of breath, had radiation treatment yesterday, she had right-sided thoracentesis yesterday, and I drained about 1000 mL of serosanguineous pleural effusion most likely malignant unless for otherwise. Cytology is pending. The fluid is exudative in nature, has LDH of 231 and a relatively elevated protein of 3040. Cytology is pending. Looking at the chest x-ray from yesterday, the left-sided pleural effusion is rather small, and I'm not recommending thoracentesis on the left pleural effusion at this point. Seems to be much smaller than the right side. Not to mention, awaiting cytology from the right- sided pleural effusion and we'll address that accordingly. Patient was reevaluated today on 11/13/2022, patient is mostly complaining of generalized weakness, fatigue, shortness of breath upon any activity, and weakness more pronounced than ever. Hence I'm recommending a Cortrosyn stimulation test on this patient patient has been on stress doses of hydrocortisone all along. Sodium is better, her labs are improving, cytology from the pleural effusion is pending biopsy results from the endobronchial tumors are pending patient had radiation already by Dr. Richey. Her labs today showed WBC count of 15.3 hemoglobin 10.9 sodium is 130 renal profile is improving BUN is 48 creatinine 1.47 Reevaluated today on 11/14/2022, patient is on 2 L nasal cannula O2 sats is on the percent. Feeling a bit better, able to take deeper breaths today compared to the last few days. However her sodium is down to 125, being addressed by nephrology. Remained generally weak. WBC 12.4 hemoglobin 10.8. BUN is 45 creatinine down to 1.39. Progress note dated 11/15/2022. The patient is seen today in room 355. She is currently on 2 L of oxygen. She 's getting saline at keep vein open. This morning, pathology was still pending. This included pathology on the pleural fluid, as well as on the bronchoscopy, and biopsies. She feels very short of breath, very fatigued and weak. Physical therapy has been ordered for this patient. White count 13, hemoglobin 10.7, hematocrit 34, with a normal platelet count. Sodium 124, potassium 4.2, chlorides 88, CO2 24, BUN 50, creatinine 1.22. Bronchial washings were positive for staph aureus. Chest x-ray shows some patchy infiltrates, left lower lobe. The patient continues on Ancef. Progress note dated 11/16/2022. The patient is seen today in room 355. She is currently on oxygen, at 2 L. She's getting saline at KVO. The pathology reports, finally did come back, showing tumor in the lung, consistent with the patient's primary ovarian carcinoma. The pleural fluid cytology was negative. Results of the biopsy were shared with the patient. Currently, the patient's biggest issue is some mild shortness of breath fatigue, and cough. All are being addressed. Lab data included a white count of 10.7, hemoglobin 11.1, hematocrit 34.4, and a normal platelet count. Sodium is 127, potassium 5, chlorides 91, CO2 28, BUN 52, and creatinine 1.45. Bronchial washings from November 08 show evidence of Staphylococcus aureus. Chest x-ray from November 15 show some infiltrate, or atelectasis, at the left lung base. Progress note dated 11/17/2022. The patient is seen today in room 355. She's currently on oxygen at 2.5 L. Her major issue is shortness of breath on exertion, and overwhelming fatigue. The patient had a brain CT, which was negative. She has not been seen by medical oncology since November 11. They need to get in there and talk to her about the next steps. No new labs today other than a glucose of 187. Bronchial washings were positive for Staphylococcus aureus. Progress note dated 11/18/2022. The patient is again seen today in room 355. The patient continues on oxygen at 3 L. I've reduce down to 2 L. Her saturations are 100%. In my opinion, the patient has unrealistic, and her expectations, in terms of how she will do. We did change her Solu-Medrol down to prednisone by mouth. In addition, I stopped her Pulmicort and her formoterol updrafts, and started her on Symbicort, 2 puffs twice a day. The patient has had 3 of 5 radiation treatments to the right lung. She was seen by the oncology nurse practitioner yesterday. The patient apparently has an appointment to see the medical oncologist down the road. She's not receiving any IV fluids. The Ancef was discontinued. Objective - Vital Signs Vital signs: Vital Signs Temp 97.4 F L 11/18/22 08:50 Pulse 82 11/18/22 08:50 Resp 20 11/18/22 08:50 BP 90/61 11/18/22 08:50 Pulse Ox 95 11/18/22 08:50 FiO2 Intake & Output 11/17/22 11/18/22 11/18/22 18:59 06:59 18:59 Intake Total 60 300 Output Total 800 600 Balance -800 -540 300 Weight 88.8 kg Intake: IV 10 0.9 10 Intake, IV Titration 50 Amount ceFAZolin 1,000 mg In 50 Sodium Chloride 0.9% 50 ml @ 100 mls/hr IVPB Q8HR [facility] Rx#:[id number] Oral 300 Output: Urine 800 600 Other: Voiding Method Toilet Toilet # Voids 1 - Exam No acute distress, oriented 3. Currently on 2 L. No respiratory distress. No conversational dyspnea. HEENT examination is grossly unremarkable. Mucous membranes are moist. No oral lesions. Neck supple. Full range of motion. No adenopathy thyromegaly or neck vein d istention. Cardiovascular examination reveals regular rhythm rate. S1-S2 normal. No S3 or S4. No discernible murmur noted. Heart rate 80 bpm. Lungs reveal scattered rhonchi, particularly in the right lung. Mild expiratory wheezes. No crackles. Saturations are excellent. Saturations are 95%. Abdomen soft bowel sounds are heard. No masses or tenderness. Extremities are intact. No cyanosis clubbing or edema. Skin is without rash or lesion. Neurologic examination is brief but nonfocal. - Labs CBC & Chem 7: 11/17/22 10:28 11/17/22 10:28 Labs: Abnormal Lab Results - Last 24 Hours (Table) 11/17/22 11/17/22 11/17/22 Range/Units 10: 10:28 11:38 WBC 11.4 H (3.8-10.6) k/uL RBC 3.38 L (3.80-5.40) m/uL Hgb 10.7 L (11.4-16.0) gm/dL MCV 101.9 H (80.0-100.0) fL RDW 17.8 H (11.5-15.5) % Neutrophils # 9.5 H (1.3-7.7) k/uL Sodium 125 L (137-145) mmol/L Chloride 88 L (98-107) mmol/L BUN 58 H (7-17) mg/dL Creatinine 1.70 H (0.52-1.04) mg/dL Glucose 158 H (74-99) mg/dL POC Glucose (mg/dL) 208 H (70-110) mg/dL Alkaline Phosphatase 163 H (38-126) U/L Total Protein 6.0 L (6.3-8.2) g/dL Albumin 3.4 L (3.5-5.0) g/dL 11/17/22 11/17/22 11/18/22 Range/Units 16:27 19:54 05:57 WBC (3.8-10.6) k/uL RBC (3.80-5.40) m/uL Hgb (11.4-16.0) gm/dL MCV (80.0-100.0) fL RDW (11.5-15.5) % Neutrophils # (1.3-7.7) k/uL Sodium (137-145) mmol/L Chloride (98-107) mmol/L BUN (7-17) mg/dL Creatinine (0.52-1.04) mg/dL Glucose (74-99) mg/dL POC Glucose (mg/dL) 163 H 146 H 118 H (70-110) mg/dL Alkaline Phosphatase (38-126) U/L Total Protein (6.3-8.2) g/dL Albumin (3.5-5.0) g/dL Assessment and Plan Assessment: Acute shortness of breath, likely multifactorial, in part related to mild fluid overload/CHF, acute bronchitis with bronchospasm, as well as possible iatrogenic pneumonitis, related to Zejula. Metastatic ovarian carcinoma, with significant endobronchial disease in the right upper lobe, right middle lobe, and right lower lobe, status post bronchoscopy, with pathology positive for metastatic ovarian carcinoma. Paroxysmal atrial flutter. Status post right-sided thoracentesis, cytology negative. Hyponatremia, secondary to SIADH. Staph. aureus, bronchopneumonia/tracheobronchitis, currently on Ancef. Rule out active infection/bronchopneumonia, less likely. Metastatic ovarian carcinoma, diagnosed in 2008, with recurrence. The patient has diffuse adenopathy, both in the abdominal cavity and thoracic cavity. Metastatic pulmonary nodule. History of malignant pericardial effusion, status post pericardial window. Plan: Plan dated 10/31/2022. A pro-calcitonin level will be checked. Currently, the patient's on Pulmicort 1 mg, twice a day, mixed with formoterol, 20 g, twice a day. In addition, the pa tient's receiving updrafts with albuterol sulfate and ipratropium bromide. The patient is also on Solu-Medrol, 60 mg every 6 hours. Finally, the patient was placed on Rocephin, which was given to her in the emergency department. Labs, x-rays, medications are all reviewed. The patient is also receiving some Lasix, for possible mild fluid overload, although the N-terminal proBNP level was only 443. We will continue to follow the patient and make recommendations along the way. Her respiratory status appears to be relatively stable at this time. Plan dated 11/15/2022. The patient remains on 2 L of oxygen. She's received some radiation to the right chest area, with some improvement in her breathing. Her lung sounds are improved on the right side. The patient is on a fluid restriction for SIADH. She is also receiving treatment for same. Pathology reports, on the bronchoscopy, and cytology reports, on the pleural fluid, are pending. Physical therapy has been ordered for this patient. Labs, x-rays, medications are reviewed. Prognosis is certainly very guarded. Plan dated 11/16/2022. The patient remains on 2 L of oxygen. Saturations ranged from 95%, up to 98%. The patient complains primarily of fatigue, and cough. The cough likely reflects irritation from the endobronchial tumor. Pathology reports on the bronchoscopy and biopsy, were positive for metastatic ovarian carcinoma. Pleural fluid cytology was negative. The patient was seen by physical therapy yesterday. We will continue to follow and make recommendations along the way. She is to receive additional radiation. She remains on Ancef for her staph infection. Prognosis is very guarded. Plan dated 11/17/2022. The patient remains on oxygen at 2.5 L. Saturations are 100%. The oxygen can be titrated down. The patient's major complaint is that of fatigue. Labs, x- rays, and medications are reviewed. She has not been seen by medical oncology and a number of days, and they should get back in there to see her and discuss the next steps. The patient continues on Ancef. The patient's hydrocortisone was converted to prednisone 30 mg a day. Also, the patient's budesonide, and formoterol, are changed to Symbicort. Additional recommendations and suggestions are forthcoming. We will continue to follow. The prognosis is guarded. Plan dated 11/18/2022. The patient's oxygen was turned down from 3 L, down to 2 L. Saturations are in the mid 90s. The patient's Solu-Medrol was discontinued in favor of prednisone. In addition, the patient's Ancef was discontinued. Also, the Pulmicort so lution, and formoterol solution, I changed to Symbicort. Additional recommendations and suggestions are forthcoming. Prognosis is guarded. The medical oncology nurse practitioner did see the patient yesterday. The plan is to hopefully get her well enough, to see her medical oncologist, Dr. Thibodeaux, so that he can recommend additional treatments. Her overall prognosis in my opinion is very poor. Time with Patient: Less than 30
[2022-11-18] MEDS ORDERED: Phenol 1.4% Sore Throat Spray Bottle MUCOUS MEM PRN (10:14)
[2022-11-18] MEDS: HYDROcodone/APAP 5-325MG 1 EACH TAB PO PRN (10:18)
--- NOTE | 2022-11-18 11:12 | P.PN ---
Subjective Patient is seen for f/u for hyponatremia secondary to SIADH Receiving Samsca daily. Patient is also maintained on demeclocycline. Status post sodium chloride tabs Urine osmolality was high at 535 Creatinine increased to 1.7 yesterday. Blood pressure remains low. Patient is maintained on midodrine. Patient is trying to be compliant with fluid restriction. Status post IV Lasix yesterday for worsening edema. This morning patient is coughing as she just choked on one of the pills. Objective - Vital Signs Vital signs: Vital Signs Temp 97.4 F L 11/18/22 08:50 Pulse 82 11/18/22 08:50 Resp 20 11/18/22 08:50 BP 90/61 11/18/22 08:50 Pulse Ox 95 11/18/22 08:50 FiO2 Intake & Output 11/17/22 11/18/22 11/18/22 18:59 06:59 18:59 Intake Total 60 300 Output Total 800 600 Balance -800 -540 300 Weight 88.8 kg Intake: IV 10 0.9 10 Intake, IV Titration 50 Amount ceFAZolin 1,000 mg In 50 Sodium Chloride 0.9% 50 ml @ 100 mls/hr IVPB Q8HR [facility] Rx#:[id number] Oral 300 Output: Urine 800 600 Other: Voiding Method Toilet Toilet # Voids 1 - Exam Awake , comfortable, no acute distress. A and O x3 Blood pressure is low with systolic in the 90s Extremities show 2+ edema. [employer]OM[employer]IST[employer] exam is grossly intact. - Labs CBC & Chem 7: 11/17/22 10:28 11/17/22 10:28 Labs: Abnormal Lab Results - Last 24 Hours (Table) 11/17/22 11/17/22 11/17/22 Range/Units 10:28 10:28 11:38 WBC 11.4 H (3.8-10.6) k/uL RBC 3.38 L (3.80-5.40) m/uL Hgb 10.7 L (11.4-16.0) gm/dL MCV 101.9 H (80.0-100.0) fL RDW 17.8 H (11.5-15.5) % Neutrophils # 9.5 H (1.3-7.7) k/uL Sodium 125 L (137-145) mmol/L Chloride 88 L (98-107) mmol/L BUN 58 H (7-17) mg/dL Creatinine 1.70 H (0.52-1.04) mg/dL Glucose 158 H (74-99) mg/dL POC Glucose (mg/dL) 208 H (70-110) mg/dL Alkaline Phosphatase 163 H (38-126) U/L Total Protein 6.0 L (6.3-8.2) g/dL Albumin 3.4 L (3.5-5.0) g/dL 11/17/22 11/17/22 11/18/22 Range/Units 16:27 19:54 05:57 WBC (3.8-10.6) k/uL RBC (3.80-5.40) m/uL Hgb (11.4-16.0) gm/dL MCV (80.0-100.0) fL RDW (11.5-15.5) % Neutrophils # (1.3-7.7) k/uL Sodium (137-145) mmol/L Chloride (98-107) mmol/L BUN (7-17) mg/dL Creatinine (0.52-1.04) mg/dL Glucose (74-99) mg/dL POC Glucose (mg/dL) 163 H 146 H 118 H (70-110) mg/dL Alkaline Phosphatase (38-126) U/L Total Protein (6.3-8.2) g/dL Albumin (3.5-5.0) g/dL Assessment and Plan Assessment: 1. Hyponatremia, mildly hypervolemic. 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 Urine osmolality 535. Receiving Samsca daily. Patient is also maintained on demeclocycline. Status post sodium chloride tab which caused increased edema, now discontinued. Status post IV Lasix. 2. Metastatic ovarian cancer with metastases to the lungs and pericardial effusion, status post pericardial window 3. New onset paroxysmal atrial flutter now in sinus rhythm 4. Acute hypoxic respiratory failure associated with significant involvement of the right lung with tumor and near occlusion of the bronchus. Significant right pleural effusion noted, s/p thoracentesis. 5. Acute kidney injury secondary to NSAIDs in the setting of hypotension, improving. Creatinine increased again to 1.7. Blood pressure 1 has been low with systolic in the 90s. Midodrine will be increased. Plan: Increase midodrine to 10 mg 3 times a day Follow-up on sodium from today and repeat Samsca 30 mg.
[2022-11-18 12:11] LABS: Glucose,Whole Blood 196 mg/dL (70-110)
[2022-11-18 12:35] LABS: Anisocytosis Slight; HCT 35.1 % (34.0-46.0); HGB 11.1 gm/dL (11.4-16.0); Hypochromasia Moderate; MCH 32.5 pg (25.0-35.0); MCHC 31.7 g/dL (31.0-37.0); MCV 102.5 fL (80.0-100.0); Macrocytosis Moderate; Mean Platelet Volume 7.6; Platelet Count 219 k/uL (150-450); RBC 3.42 m/uL (3.80-5.40); RDW 17.7 % (11.5-15.5); WBC 12.6 k/uL (3.8-10.6)
[2022-11-18 12:43] LABS: African American GFR (CKD) 38 (>60 ml/min/1.73 sqM); Anion Gap 13 mmol/L; Blood Urea Nitrogen 71 mg/dL (7-17); Calcium 8.5 mg/dL (8.4-10.2); Carbon Dioxide 18 mmol/L (22-30); Chloride 88 mmol/L (98-107); Glucose 158 mg/dL (74-99); Non-African American GFR(CKD) 33 (>60 ml/min/1.73 sqM); Potassium 4.6 mmol/L (3.5-5.1)
[2022-11-18 12:45] LABS: Sodium 119 mmol/L (137-145)
--- NOTE | 2022-11-18 12:47 | P.PN ---
Subjective Progress Note Date: 11/18/22 This is a 57-year-old female patient of Dr. Aguilar who presented with concerns of increased dyspnea. Patient reports that she was having improvement since previous admission with updraft and prednisone treatment but starts developing increased wheezing and shortness breath increasing over the past few days. patient has extensive medical history including ovarian cancer which was diagnosed 14 years ago and has been maintained on chemo therapy. Additional medical history includes previous episode of pericardial effusion with pericardial window. Chest x-ray showing cardiomegaly with mild pulmonary vascular congestion correlate with BMP for congestive heart failure. COPD changes. Chest CTA completed showing no evidence of pulmonary embolism U small bilateral pleural effusions him a new small pericardial effusion new pulmonary vascular congestion and cardiomegaly correlate with serum BNP. This time patient will be admitted patient's BREATHING treatments, IV Lasix, Solu-Medrol. Pulmonary cardiology and oncology services will be consulted. On 11/01/2022 patient was seen and examined on the telemetry floor she is alert and oriented 3 in no apparent distress she reports improvement in her shortness of breath otherwise she denies any complaints there is no fever or chills no headache or dizziness no chest pain no palpitation no nausea or vomiting no abdominal pain no diarrhea no blood in the stools no burning with urination no frequency or urgency and no hematuria On 11/02/2022 patient was seen and examined on the telemetry floor she is reporting improvement in her shortness of breath, otherwise she denies any complaints there is no fever or chills no headache or dizziness no chest pain no palpitation she has occasional cough no nausea or vomiting no abdominal pain no diarrhea no blood in the stools no burning with urination no frequency or urgency no hematuria. On 11/03/2022 patient is alert and oriented 3. Patient continued to show improvement in regards to breathing. Discussed case with pulmonary team patient will continue IV steroids no plans for bronchoscopy at this time. Patient denies chest pain. Patient denies nausea vomiting or diarrhea. Patient denies any urinary frequency. On 11/04/2022 patient was seen and examined on the medical floor, she is alert and oriented 3 in no apparent distress there is no fever or chills no headache or dizziness no chest pain no shortness of breath no cough no nausea or vomiting no abdominal pain no diarrhea and no urinary symptoms. At this time patient is being switched to oral prednisone and oral Lasix, no plans per pulmonary for bronchoscopy this time, patient has not been yet cleared for discharge, will continue to follow closely. 11/05/2022 patient is alert and oriented 3. Patient having increasing shortness of breath and crackles today. Patient has been transitioned to by mouth prednisone will discuss case with pulmonary services for possible bronchoscopy. Patient remains on Lasix. Her vital signs as 7.6, heart rate 98, respiratory rate 20, blood pressure 126/64 95% on 2 L On 11/06/2022 patient was seen and examined on the telemetry floor she is alert and oriented 3 in no apparent distress, she is reporting some improvement in her shortness of breath since yesterday she is still having occasional cough there is no fever or chills no headache or dizziness no chest pain no nausea or vomiting no abdominal pain no diarrhea no blood in the stools no burning with urination no frequency or urgency and no hematuria. Plan per pulmonary is to continue with current management at this time and to proceed with bronchoscopy on Tuesday. On 11/07/2022 patient is alert and oriented 3. Patient reports improvement with shortness of breath. Plans for bronchoscopy tomorrow and patient also had an episode of atrial flutter cardiology services have been consulted. Heart rate has improved. This time patient denies chest pain. Patient denies nausea vomiting or diarrhea. Patient denies any urinary burning or frequency. On 11/08/2022 patient was seen and examined on the medical floor she is alert and oriented 3 in no apparent distress there is no fever or chills no headache or dizziness no chest pain, she is still complaining of shortness of breath and cough no nausea or vomiting no abdominal pain no diarrhea and no urinary symptoms On 11/09/2022 patient was seen and examined on the medical floor she is alert and oriented 3 in no apparent distress, she is complaining of muscle cramps and pain otherwise she denies any complaints there is no fever or chills no headache or dizziness no chest pain, she is still complaining of shortness of breath and cough no nausea or vomiting no abdominal pain no diarrhea and no urinary symptoms. [place] was added for pain, consultation was added for nephrology regarding hyponatremia. On 11/10/2022 patient is alert and oriented 3. Patient having increased wheezing today. Per oncology arranging for possible inpatient palliative radiation to endobronchial bronchial lesions causing near-complete occlusion of the right upper lobe. Patient also being followed by nephrology services for hyponatremia sodium improving slightly to 122. at this time patient denies chest pain. Denies nausea vomiting or diarrhea. Patient denies any urinary burning or frequency. On 11/11/2022 patient is alert and oriented 3. Plans for palliative radiation today and tomorrow for endobronchial lesions. This time patient remains with audible wheezing and shortness of breath. Patient denies chest pain. Patient denies nausea vomiting or diarrhea. Patient denies any urinary burning or frequency. Sodium 126. Dr. Romano's group covering from 11/12/2022- 11/17/2022 On 11/17/2022 patient is alert and oriented 3. Patient has underwent pa lliative radiation. Apparently patient had episodes of tunnel vision and dizziness. Patient was evaluated by neurology services CT of the brain completed showing no acute process. Nephrology services were consulted and MRI and EEG has been ordered. Nephrology services continue to follow her hypo natremia. On 11/18/2022 patient was seen and examined on the medical floor she is alert and oriented 3 in no apparent distress there is no fever or chills no headache or dizziness no chest pain no shortness of breath no cough she has occasional nausea no vomiting no abdominal pain no diarrhea and no urinary symptoms. Patient is complaining of generalized pain, she is also complaining of oral th barone with difficulty swallowing. She has been refusing most of her meals, this was discussed in details with patient, at this time will add appetite stimulant Megace 400 mg suspension once daily. CODE STATUS was discussed again with patient and her , patient wants to be a full code at this time. Objective - Vital Signs Vital signs: Vital Signs Temp 97.4 F L 11/18/22 03:53 Pulse 80 11/18/22 08:38 Resp 18 11/18/22 03:53 BP 90/65 11/18/22 03:53 Pulse Ox 100 11/18/22 08:25 FiO2 Intake & Output 11/17/22 11/18/22 11/18/22 18:59 06:59 18:59 Intake Total 60 300 Output Total 800 600 Balance -800 -540 300 Weight 88.8 kg Intake: IV 10 0.9 10 Intake, IV Titration 50 Amount ceFAZolin 1,000 mg In 50 Sodium Chloride 0.9% 50 ml @ 100 mls/hr IVPB Q8HR [facility] Rx#:[id number] Oral 300 Output: Urine 800 600 Other: Voiding Method Toilet Toilet # Voids 1 - Exam In general patient is alert and oriented x 3 in no distress HEENT head normocephalic and atraumatic Neck is supple no JVD no goiter no lymphadenopathy no carotid bruit Chest examination is clear to auscultation no crackles no wheezing Cardiac exam reveals regular heart sounds S1 and S2 no gallops no murmurs Abdomen is soft nontender no organomegaly with normal bowel sounds Extremity exam reveals no edema no cyanosis or clubbing Neurological examination reveals no gross focal deficits - Labs CBC & Chem 7: 11/18/22 12:16 11/17/22 10:28 Labs: Abnormal Lab Results - Last 24 Hours (Table) 11/17/22 11/17/22 11/17/22 Range/Units 10:28 10:28 11:38 WBC 11.4 H (3.8-10.6) k/uL RBC 3.38 L (3.80-5.40) m/uL Hgb 10.7 L (11.4-16.0) gm/dL MCV 101.9 H (80.0-100.0) fL RDW 17.8 H (11.5-15.5) % Neutrophils # 9.5 H (1.3-7.7) k/uL Sodium 125 L (137-145) mmol/L Chloride 88 L (98-107) mmol/L BUN 58 H (7-17) mg/dL Creatinine 1.70 H (0.52-1.04) mg/dL Glucose 158 H (74-99) mg/dL POC Glucose (mg/dL) 208 H (70-110) mg/dL Alkaline Phosphatase 163 H (38-126) U/L Total Protein 6.0 L (6.3-8.2) g/dL Albumin 3.4 L (3.5-5.0) g/dL 11/17/22 11/17/22 11/18/22 Range/Units 16:27 19:54 05:57 WBC (3.8-10.6) k/uL RBC (3.80-5.40) m/uL Hgb (11.4-16.0) gm/dL MCV (80.0-100.0) fL RDW (11.5-15.5) % Neutrophils # (1.3-7.7) k/uL Sodium (137-145) mmol/L Chloride (98-107) mmol/L BUN (7-17) mg/dL Creatinine (0.52-1.04) mg/dL Glucose (74-99) mg/dL POC Glucose (mg/dL) 163 H 146 H 118 H (70-110) mg/dL Alkaline Phosphatase (38-126) U/L Total Protein (6.3-8.2) g/dL Albumin (3.5-5.0) g/dL Assessment and Plan Assessment: 1. Acute on chronic hypoxic respiratory failure 2. Pericardial effusion on computed tomography scan of the chest 3. History of pericardial window 4. History of ovarian cancer with metastatic disease 5. Bronchospasms 6. History of oral thrush 7. Atrial flutter. Cardiology services consulted 8. Status post bronchoscopy on 11/08/2022 findings of new endobronchial lesions with near-complete occlusion of the right upper lobe 9. Hyponatremia per nephrology high suspicion for underlying SIADH. 10. Dizziness and tunnel vision. Neurology services were consulted and MRI EEG has been ordered 11. Positive sputum culture for staph aureus. Maintain on IV cefazolin Pulmonary cardiology service is consulted s/p bronchoscopy on 11/08/2022 radiation to endobronchial lesions on 11/11/2022 and 11/12/2022 MRI and EEG ordered per neurology Repeat labs ordered
[2022-11-18] MEDS ORDERED: FUROSEMIDE 10 MG/ML 4 ML VIAL IV STA (13:36)
[2022-11-18] MEDS ORDERED: TOLVAPTAN 15 MG TABLET PO ONE (14:00)
[2022-11-18] MEDS: MEGESTROL 400 MG/10 ML CUP PO SCH (14:41)
--- NOTE | 2022-11-18 16:42 | P.PN ---
Subjective Progress Note Date: 11/18/22 Principal diagnosis: metastatic ovarian cancer At today's visit patient is c/o of not feeling well and worsening SOB and cough. Pt states she choked today while trying to take her medications. Continues on breathing treatments, inhalers and prednisone. Sodium decreased, 119 today, nephrology following. Objective - Vital Signs Vital signs: Vital Signs Temp 97.6 F 11/18/22 12:00 Pulse 53 L 11/18/22 12:18 Resp 18 11/18/22 12:00 BP 98/65 11/18/22 12:00 Pulse Ox 97 11/18/22 12:00 FiO2 Intake & Output 11/17/22 11/18/22 11/18/22 18:59 06:59 18:59 Intake Total 60 300 Output Total 800 600 Balance -800 -540 300 Weight 88.8 kg 88.8 kg Intake: IV 10 0.9 10 Intake, IV Titration 50 Amount ceFAZolin 1,000 mg In 50 Sodium Chloride 0.9% 50 ml @ 100 mls/hr IVPB Q8HR [facility] Rx#:[id number] Oral 300 Output: Urine 800 600 Other: Voiding Method Toilet Toilet # Voids 1 - Constitutional General appearance: Present: average body habitus, no acute distress - EENT Eyes: Present: anicteric sclerae, EOMI ENT: Present: hearing grossly normal - Respiratory Respiratory: right: wheezing - Cardiovascular Rhythm: regular Heart sounds: normal: S1, S2 Abnormal Heart Sounds: Absent: systolic murmur, diastolic murmur, rub, S3 Gallop, S4 Gallop, click, other - Integumentary Integumentary: Absent: cyanotic - Neurologic Neurologic Comment(s): grossly intact - Musculoskeletal Musculoskeletal: Present: strength equal bilaterally - Psychiatric Psychiatric: Present: A&O x's 3, appropriate affect, intact judgment & insight - Labs CBC & Chem 7: 11/18/22 12:16 11/18/22 12:16 Labs: Abnormal Lab Results - Last 24 Hours (Table) 11/17/22 11/17/22 11/18/22 Range/Units 16:27 19:54 05:57 WBC (3.8-10.6) k/uL RBC (3.80-5.40) m/uL Hgb (11.4-16.0) gm/dL MCV (80.0-100.0) fL RDW (11.5-15.5) % Sodium (137-145) mmol/L Chloride (98-107) mmol/L Carbon Dioxide (22-30) mmol/L BUN (7-17) mg/dL Creatinine (0.52-1.04) mg/dL Glucose (74-99) mg/dL POC Glucose (mg/dL) 163 H 146 H 118 H (70-110) mg/dL 11/18/22 11/18/22 11/18/22 Range/Units 12:09 12:16 12:16 WBC 12.6 H (3.8-10.6) k/uL RBC 3.42 L (3.80-5.40) m/uL Hgb 11.1 L (11.4-16.0) gm/dL MCV 102.5 H (80.0-100.0) fL RDW 17.7 H (11.5-15.5) % Sodium 119 L* (137-145) mmol/L Chloride 88 L (98-107) mmol/L Carbon Dioxide 18 L (22-30) mmol/L BUN 71 H (7-17) mg/dL Creatinine 1.73 H (0.52-1.04) mg/dL Glucose 158 H (74-99) mg/dL POC Glucose (mg/dL) 196 H (70-110) mg/dL Assessment and Plan (1) Acute bronchospasm Current Visit: Yes Status: Acute Priority: High Code(s): J98.01 - ACUTE BRONCHOSPASM SNOMED Code(s): 03531016489808 (2) Primary malignant neoplasm of ovary with widespread metastatic disease Current Visit: Yes Status: Chronic Priority: High Code(s): C56.9 - MALIGNANT NEOPLASM OF UNSPECIFIED OVARY; C80.0 - DISSEMINATED MALIGNANT NEOPLASM, UNSPECIFIED SNOMED Code(s): 390058587 (3) Macrocytic anemia Current Visit: Yes Status: Chronic Priority: Medium Code(s): D53.9 - NUTRITIONAL ANEMIA, UNSPECIFIED SNOMED Code(s): 25731310 Plan: Wheezing, dyspnea -Recurrent after completing prednisone taper from admit 10/07/2022 -S/p right sided thoracentesis with 950 mL removed and broncoscopy with lavage/washing and biopsy of RUL/RML. right pleural fluid negative for malignancy. Right upper lobe brushing compatible with non-small cell carcinoma. Right upper lobe and right middle lobe transbronchial biopsy positive for metastatic non-mucinous mullerian/ovarian carcinoma -Radiation Oncology evaluation. Has completed 4/5 fractions of palliative radiation to endobronchial lesions. Discussed with patient the intent of RT and that this is palliative for symptom management. -Continues on prednisone, breathing treatments and inhalers -Will plan on 6 week slow taper for treatment of likely underlying pneumonitis 2/2 niraparib treatment, complicated by metastatic disease and possible pneumonia. -pulmonology following Metastatic ovarian adenocarcinoma: -Follows with Dr. Thibodeaux and Dr. Cerda. -Completed 7 cycles of Doxil/carbo 03/06, maintenance [place] 05/2022-09/10/22 -Pericardial fluid and pericardium biopsy obtained 08/05, were positive for metastatic ovarian carcinoma, PET showed metastatic disease in July. -Dr. Thibodeaux recommended optimizing her pulmonary function prior to proceeding with additional treatment -F/U with Dr. Thibodeaux was missed due to hospitalization, pt will reschedule upon discharge. Macrocytic anemia -Hgb near baseline, stable 11.1 -Anemia likely due to Hx of chemotherapy -No nutritional deficiency anemias noted. TSH WNL -Transfuse if symptomatic or Hgb <7. Hyponatremia -SIADH from malignancy -Nephrology has been following. -Demeclocycline and samsca ordered and pt placed on fluid restrictions, Sodium decreased today, 119 Dr attests: I performed H&P and developed impression and plan of care for patient, discussed with dictator. I agree with dictated note, documented as a scribe
[2022-11-18 16:44] LABS: Glucose,Whole Blood 168 mg/dL (70-110)
[2022-11-18 19:59] LABS: Glucose,Whole Blood 158 mg/dL (70-110)
[2022-11-18] MEDS ORDERED: SODIUM CHLORIDE 0.9% 500 ML 250 ML IV ONE (20:46)
[2022-11-18] MEDS: ZYRTEC 10MG TABLET PO SCH (21:22)
[2022-11-18] MEDS: SENNOSIDES-DOCUSATE SODIUM 1 EACH TAB PO SCH (21:22)
[2022-11-18] MEDS: INSULIN DETEMIR (LEVEMIR) 100 UNIT/ML SYR SQ SCH (21:22)
[2022-11-19] MEDS: IPRATROPIUM-ALBUTEROL 3 ML NEB INHALATION SCH ×6 (00:36→21:41)
[2022-11-19 06:12] LABS: Glucose,Whole Blood 148 mg/dL (70-110)
[2022-11-19] MEDS: INSULIN ASPART (NovoLOG) 100 UNIT/ML VIAL SQ SCH ×7 (06:22→22:00)
[2022-11-19] MEDS: MIDODRINE 5 MG TAB PO SCH ×3 (06:47→17:23)
[2022-11-19 07:55] LABS: Anisocytosis Slight; Basophils % (A) 0 %; Eosinophils % (A) 0 %; HCT 34.7 % (34.0-46.0); HGB 11.2 gm/dL (11.4-16.0); Hypochromasia Slight; Lymphocytes % (A) 8 %; MCHC 32.2 g/dL (31.0-37.0); MCV 102.3 fL (80.0-100.0); Macrocytosis Moderate; Mean Platelet Volume 7.6; Monocytes # (A) 0.5 k/uL (0-1.0); Monocytes % (A) 4 %; Neutrophils # (A) 10.8 k/uL (1.3-7.7); Neutrophils % (A) 87 %; Platelet Count 171 k/uL (150-450); RBC 3.39 m/uL (3.80-5.40); RDW 17.8 % (11.5-15.5); WBC 12.5 k/uL (3.8-10.6)
[2022-11-19 08:07] LABS: ALT 13 U/L (4-34); AST 34 U/L (14-36); African American GFR (CKD) 34 (>60 ml/min/1.73 sqM); Albumin 3.3 g/dL (3.5-5.0); Alkaline Phosphatase 185 U/L (38-126); Anion Gap 13 mmol/L; Blood Urea Nitrogen 75 mg/dL (7-17); Calcium 8.6 mg/dL (8.4-10.2); Carbon Dioxide 19 mmol/L (22-30); Chloride 89 mmol/L (98-107); Glucose 149 mg/dL (74-99); Non-African American GFR(CKD) 30 (>60 ml/min/1.73 sqM); Sodium 121 mmol/L (137-145); Total Bilirubin 0.7 mg/dL (0.2-1.3); Total Protein 5.8 g/dL (6.3-8.2)
[2022-11-19] MEDS: SYMBICORT 160-4.5 MCG INHALER INHALATION SCH ×2 (08:19→21:41)
[2022-11-19] MEDS ORDERED: TOLVAPTAN 15 MG TABLET PO ONE (09:29)
[2022-11-19] MEDS: AMIODARONE 200 MG TAB PO SCH ×2 (09:56→22:02)
[2022-11-19] MEDS: MEGESTROL 400 MG/10 ML CUP PO SCH (09:56)
[2022-11-19] MEDS: DEMECLOCYCLINE 150 MG TAB PO SCH ×2 (09:56→21:59)
[2022-11-19] MEDS: METOPROLOL TARTRATE 12.5 MG TAB PO SCH ×2 (09:56→22:01)
[2022-11-19] MEDS: HEPARIN SODIUM,PORCINE/PF 5,000 UNIT/0.5 ML SYRINGE SQ SCH ×2 (09:57→21:59)
[2022-11-19] MEDS: BENZONATATE 100 MG CAP PO SCH ×3 (09:57→22:02)
[2022-11-19] MEDS: FAMOTIDINE 20 MG TAB PO SCH (09:57)
[2022-11-19] MEDS: FLUCONAZOLE 150 MG TAB PO SCH (09:57)
[2022-11-19] MEDS: predniSONE 10 MG TAB PO SCH (09:57)
[2022-11-19] MEDS: FLUTICASONE 50MCG/SPRAY NASAL 16GM EA NOSTRIL SCH ×2 (09:58→22:00)
--- NOTE | 2022-11-19 10:15 | P.PN ---
Subjective Progress Note Date: 11/19/22 This is a 57-year-old female patient of Dr. Aguilar who presented with concerns of increased dyspnea. Patient reports that she was having improvement since previous admission with updraft and prednisone treatment but starts developing increased wheezing and shortness breath increasing over the past few days. patient has extensive medical history including ovarian cancer which was diagnosed 14 years ago and has been maintained on chemo therapy. Additional medical history includes previous episode of pericardial effusion with pericardial window. Chest x-ray showing cardiomegaly with mild pulmonary vascular congestion correlate with BMP for congestive heart failure. COPD changes. Chest CTA completed showing no evidence of pulmonary embolism U small bilateral pleural effusions him a new small pericardial effusion new pulmonary vascular congestion and cardiomegaly correlate with serum BNP. This time patient will be admitted patient's BREATHING treatments, IV Lasix, Solu-Medrol. Pulmonary cardiology and oncology services will be consulted. On 11/01/2022 patient was seen and examined on the telemetry floor she is alert and oriented 3 in no apparent distress she reports improvement in her shortness of breath otherwise she denies any complaints there is no fever or chills no headache or dizziness no chest pain no palpitation no nausea or vomiting no abdominal pain no diarrhea no blood in the stools no burning with urination no frequency or urgency and no hematuria On 11/02/2022 patient was seen and examined on the telemetry floor she is reporting improvement in her shortness of breath, otherwise she denies any complaints there is no fever or chills no headache or dizziness no chest pain no palpitation she has occasional cough no nausea or vomiting no abdominal pain no diarrhea no blood in the stools no burning with urination no frequency or urgency no hematuria. On 11/03/2022 patient is alert and oriented 3. Patient continued to show improvement in regards to breathing. Discussed case with pulmonary team patient will continue IV steroids no plans for bronchoscopy at this time. Patient denies chest pain. Patient denies nausea vomiting or diarrhea. Patient denies any urinary frequency. On 11/04/2022 patient was seen and examined on the medical floor, she is alert and oriented 3 in no apparent distress there is no fever or chills no headache or dizziness no chest pain no shortness of breath no cough no nausea or vomiting no abdominal pain no diarrhea and no urinary symptoms. At this time patient is being switched to oral prednisone and oral Lasix, no plans per pulmonary for bronchoscopy this time, patient has not been yet cleared for discharge, will continue to follow closely. 11/05/2022 patient is alert and oriented 3. Patient having increasing shortness of breath and crackles today. Patient has been transitioned to by mouth prednisone will discuss case with pulmonary services for possible bronchoscopy. Patient remains on Lasix. Her vital signs as 7.6, heart rate 98, respiratory rate 20, blood pressure 126/64 95% on 2 L On 11/06/2022 patient was seen and examined on the telemetry floor she is alert and oriented 3 in no apparent distress, she is reporting some improvement in her shortness of breath since yesterday she is still having occasional cough there is no fever or chills no headache or dizziness no chest pain no nausea or vomiting no abdominal pain no diarrhea no blood in the stools no burning with urination no frequency or urgency and no hematuria. Plan per pulmonary is to continue with current management at this time and to proceed with bronchoscopy on Tuesday. On 11/07/2022 patient is alert and oriented 3. Patient reports improvement with shortness of breath. Plans for bronchoscopy tomorrow and patient also had an episode of atrial flutter cardiology services have been consulted. Heart rate has improved. This time patient denies chest pain. Patient denies nausea vomiting or diarrhea. Patient denies any urinary burning or frequency. On 11/08/2022 patient was seen and examined on the medical floor she is alert and oriented 3 in no apparent distress there is no fever or chills no headache or dizziness no chest pain, she is still complaining of shortness of breath and cough no nausea or vomiting no abdominal pain no diarrhea and no urinary symptoms On 11/09/2022 patient was seen and examined on the medical floor she is alert and oriented 3 in no apparent distress, she is complaining of muscle cramps and pain otherwise she denies any complaints there is no fever or chills no headache or dizziness no chest pain, she is still complaining of shortness of breath and cough no nausea or vomiting no abdominal pain no diarrhea and no urinary symptoms. [place] was added for pain, consultation was added for nephrology regarding hyponatremia. On 11/10/2022 patient is alert and oriented 3. Patient having increased wheezing today. Per oncology arranging for possible inpatient palliative radiation to endobronchial bronchial lesions causing near-complete occlusion of the right upper lobe. Patient also being followed by nephrology services for hyponatremia sodium improving slightly to 122. at this time patient denies chest pain. Denies nausea vomiting or diarrhea. Patient denies any urinary burning or frequency. On 11/11/2022 patient is alert and oriented 3. Plans for palliative radiation today and tomorrow for endobronchial lesions. This time patient remains with audible wheezing and shortness of breath. Patient denies chest pain. Patient denies nausea vomiting or diarrhea. Patient denies any urinary burning or frequency. Sodium 126. Dr. Romano's group covering from 11/12/2022- 11/17/2022 On 11/17/2022 patient is alert and oriented 3. Patient has underwent pa lliative radiation. Apparently patient had episodes of tunnel vision and dizziness. Patient was evaluated by neurology services CT of the brain completed showing no acute process. Nephrology services were consulted and MRI and EEG has been ordered. Nephrology services continue to follow her hypo natremia. On 11/18/2022 patient was seen and examined on the medical floor she is alert and oriented 3 in no apparent distress there is no fever or chills no headache or dizziness no chest pain no shortness of breath no cough she has occasional nausea no vomiting no abdominal pain no diarrhea and no urinary symptoms. Patient is complaining of generalized pain, she is also complaining of oral th barone with difficulty swallowing. She has been refusing most of her meals, this was discussed in details with patient, at this time will add appetite stimulant Megace 400 mg suspension once daily. CODE STATUS was discussed again with patient and her , patient wants to be a full code at this time. On 11/19/2022 patient is alert and oriented 3. Patient to get last treatment of radiation today. Patient remains weak with shortness of breath. Patient denies chest pain. Patient's sodium slightly increased 121. Patient does report improvement with taking medication. Objective - Vital Signs Vital signs: Vital Signs Temp 97.4 F L 11/19/22 04:00 Pulse 80 11/19/22 08:30 Resp 18 11/19/22 04:00 BP 100/60 11/19/22 04:00 Pulse Ox 96 11/19/22 06:09 FiO2 Intake & Output 11/18/22 11/19/22 11/19/22 18:59 06:59 18:59 Intake Total 300 250 Output Total 390 800 Balance -90 -550 Weight 88.8 kg Intake: Intake, IV Titration 250 Amount Sodium Chloride 0.9% 500 250 ml 250 ml @ 999 mls/hr IV .Q16M ONE Rx#:[id number] Oral 300 Output: Urine 800 Post Void Residual 390 Other: Voiding Method Toilet # Voids 1 - Exam In general patient is alert and oriented x 3 in no distress HEENT head normocephalic and atraumatic Neck is supple no JVD no goiter no lymphadenopathy no carotid bruit Chest examination is clear to auscultation no crackles no wheezing Cardiac exam reveals regular heart sounds S1 and S2 no gallops no murmurs Abdomen is soft nontender no organomegaly with normal bowel sounds Extremity exam reveals no edema no cyanosis or clubbing Neurological examination reveals no gross focal deficits - Labs CBC & Chem 7: 11/19/22 07:36 11/19/22 07:36 Labs: Abnormal Lab Results - Last 24 Hours (Table) 11/18/22 11/18/22 11/18/22 Range/Units 12:09 12:16 12:16 WBC 12.6 H (3.8-10.6) k/uL RBC 3.42 L (3.80-5.40) m/uL Hgb 11.1 L (11.4-16.0) gm/dL MCV 102.5 H (80.0-100.0) fL RDW 17.7 H (11.5-15.5) % Neutrophils # (1.3-7.7) k/uL Sodium 119 L* (137-145) mmol/L Chloride 88 L (98-107) mmol/L Carbon Dioxide 18 L (22-30) mmol/L BUN 71 H (7-17) mg/dL Creatinine 1.73 H (0.52-1.04) mg/dL Glucose 158 H (74-99) mg/dL POC Glucose (mg/dL) 196 H (70-110) mg/dL Alkaline Phosphatase (38-126) U/L Total Protein (6.3-8.2) g/dL Albumin (3.5-5.0) g/dL 11/18/22 11/18/22 11/18/22 Range/Units 16:35 19:57 20:01 WBC (3.8-10.6) k/uL RBC (3.80-5.40) m/uL Hgb (11.4-16.0) gm/dL MCV (80.0-100.0) fL RDW (11.5-15.5) % Neutrophils # (1.3-7.7) k/uL Sodium 121 L (137-145) mmol/L Chloride (98-107) mmol/L Carbon Dioxide (22-30) mmol/L BUN (7-17) mg/dL Creatinine (0.52-1.04) mg/dL Glucose (74-99) mg/dL POC Glucose (mg/dL) 168 H 158 H (70-110) mg/dL Alkaline Phosphatase (38-126) U/L Total Protein (6.3-8.2) g/dL Albumin (3.5-5.0) g/dL 11/19/22 11/19/22 11/19/22 Range/Units 06:11 07:36 07:36 WBC 12.5 H (3.8-10.6) k/uL RBC 3.39 L (3.80-5.40) m/uL Hgb 11.2 L (11.4-16.0) gm/dL MCV 102.3 H (80.0-100.0) fL RDW 17.8 H (11.5-15.5) % Neutrophils # 10.8 H (1.3-7.7) k/uL Sodium 121 L (137-145) mmol/L Chloride 89 L (98-107) mmol/L Carbon Dioxide 19 L (22-30) mmol/L BUN 75 H (7-17) mg/dL Creatinine 1.87 H (0.52-1.04) mg/dL Glucose 149 H (74-99) mg/dL POC Glucose (mg/dL) 148 H (70-110) mg/dL Alkaline Phosphatase 185 H (38-126) U/L Total Protein 5.8 L (6.3-8.2) g/dL Albumin 3.3 L (3.5-5.0) g/dL Assessment and Plan Assessment: 1. Acute on chronic hypoxic respiratory failure 2. Pericardial effusion on computed tomography scan of the chest 3. History of pericardial window 4. History of ovarian cancer with metastatic disease 5. Bronchospasms 6. History of oral thrush 7. Atrial flutter. Cardiology services consulted 8. Status post bronchoscopy on 11/08/2022 findings of new endobronchial lesions with near-complete occlusion of the right upper lobe 9. Hyponatremia per nephrology high suspicion for underlying SIADH. 10. Dizziness and tunnel vision. Neurology services were consulted and MRI EEG has been ordered 11. Positive sputum culture for staph aureus. Maintain on IV cefazolin Pulmonary cardiology service is consulted s/p bronchoscopy on 11/08/2022 radiation to endobronchial lesions on 11/11/2022 and 11/12/2022 MRI and EEG ordered per neurology Repeat labs ordered
[2022-11-19] MEDS: ALPRAZolam 0.25 MG TAB PO PRN ×2 (10:37→21:59)
[2022-11-19] MEDS: DOCUSATE 100 MG CAP PO PRN (10:48)
--- NOTE | 2022-11-19 10:48 | P.PN ---
Subjective Patient is seen for f/u for hyponatremia secondary to SIADH Receiving Samsca daily. Patient is also maintained on demeclocycline. Status post sodium chloride tabs Urine osmolality was high at 535 Creatinine increased to 1.7 yesterday. Blood pressure remains low. Patient is maintained on midodrine. Patient is trying to be compliant with fluid restriction. Status post IV Lasix yesterday for worsening edema. Serum sodium had dropped to 119. It is up to 121 today. Blood pressure slightly better with increased dose of midodrine. Serum cr eatinine at 1.8. No urine retention. Objective - Vital Signs Vital signs: Vital Signs Temp 97.4 F L 11/19/22 04:00 Pulse 80 11/19/22 08:30 Resp 18 11/19/22 04:00 BP 100/60 11/19/22 04:00 Pulse Ox 96 11/19/22 06:09 FiO2 Intake & Output 11/18/22 11/19/22 11/19/22 18:59 06:59 18:59 Intake Total 300 250 Output Total 390 800 Balance -90 -550 Weight 88.8 kg Intake: Intake, IV Titration 250 Amount Sodium Chloride 0.9% 500 250 ml 250 ml @ 999 mls/hr IV .Q16M ONE Rx#:[id number] Oral 300 Output: Urine 800 Post Void Residual 390 Other: Voiding Method Toilet # Voids 1 - Exam Awake , comfortable, no acute distress. A and O x3 Examination of the heart S1 and S2 Examination of the lungs bilateral breath sounds are heard, decreased on the right side. Occasional wheezing heard. Blood pressure is low with systolic in the 90s Extremities show 2+ edema. [employer] exam is grossly intact. - Labs CBC & Chem 7: 11/19/22 07:36 11/19/22 07:36 Labs: Abnormal Lab Results - Last 24 Hours (Table) 11/18/22 11/18/22 11/18/22 Range/Units 12:09 12:16 12:16 WBC 12.6 H (3.8-10.6) k/uL RBC 3.42 L (3.80-5.40) m/uL Hgb 11.1 L (11.4-16.0) gm/dL MCV 102.5 H (80.0-100.0) fL RDW 17.7 H (11.5-15.5) % Neutrophils # (1.3-7.7) k/uL Sodium 119 L* (137-145) mmol/L Chloride 88 L (98-107) mmol/L Carbon Dioxide 18 L (22-30) mmol/L BUN 71 H (7-17) mg/dL Creatinine 1.73 H (0.52-1.04) mg/dL Glucose 158 H (74-99) mg/dL POC Glucose (mg/dL) 196 H (70-110) mg/dL Alkaline Phosphatase (38-126) U/L Total Protein (6.3-8.2) g/dL Albumin (3.5-5.0) g/dL 11/18/22 11/18/22 11/18/22 Range/Units 16:35 19:57 20:01 WBC (3.8-10.6) k/uL RBC (3.80-5.40) m/uL Hgb (11.4-16.0) gm/dL MCV (80.0-100.0) fL RDW (11.5-15.5) % Neutrophils # (1.3-7.7) k/uL Sodium 121 L (137-145) mmol/L Chloride (98-107) mmol/L Carbon Dioxide (22-30) mmol/L BUN (7-17) mg/dL Creatinine (0.52-1.04) mg/dL Glucose (74-99) mg/dL POC Glucose (mg/dL) 168 H 158 H (70-110) mg/dL Alkaline Phosphatase (38-126) U/L Total Protein (6.3-8.2) g/dL Albumin (3.5-5.0) g/dL 11/19/22 11/19/22 11/19/22 Range/Units 06:11 07:36 07:36 WBC 12.5 H (3.8-10.6) k/uL RBC 3.39 L (3.80-5.40) m/uL Hgb 11.2 L (11.4-16.0) gm/dL MCV 102.3 H (80.0-100.0) fL RDW 17.8 H (11.5-15.5) % Neutrophils # 10.8 H (1.3-7.7) k/uL Sodium 121 L (137-145) mmol/L Chloride 89 L (98-107) mmol/L Carbon Dioxide 19 L (22-30) mmol/L BUN 75 H (7-17) mg/dL Creatinine 1.87 H (0.52-1.04) mg/dL Glucose 149 H (74-99) mg/dL POC Glucose (mg/dL) 148 H (70-110) mg/dL Alkaline Phosphatase 185 H (38-126) U/L Total Protein 5.8 L (6.3-8.2) g/dL Albumin 3.3 L (3.5-5.0) g/dL Assessment and Plan Assessment: 1. Hyponatremia, mildly hypervolemic. 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 Urine osmolality 535. Receiving Samsca daily. Patient is also maintained on demeclocycline. Status post sodium chloride tab which caused increased edema, now discontinued. Status post IV Lasix. No urine retention 2. Metastatic ovarian cancer with metastases to the lungs and pericardial effusion, status post pericardial window 3. New onset paroxysmal atrial flutter now in sinus rhythm 4. Acute hypoxic respiratory failure associated with significant involvement of the right lung with tumor and near occlusion of the bronchus. Significant right pleural effusion noted, s/p thoracentesis. 5. Acute kidney injury secondary to NSAIDs in the setting of hypotension, improving. Creatinine increased again to 1.87. Blood pressure had been low with systolic in the 90s. Midodrine was increased yesterday. No urine retention Plan: Continue demeclocycline as well as Samsca Maintain fluid restriction Check chest x-ray
[2022-11-19 11:21] LABS: Glucose,Whole Blood 254 mg/dL (70-110)
[2022-11-19] MEDS: guaiFENesin-DM 100-10MG/5ML 10 ML CUP PO PRN (11:30)
--- NOTE | 2022-11-19 11:33 | XR ---
EXAMINATION TYPE: XR chest 1V portable DATE OF EXAM: 11/19/2022 COMPARISON: 11/15/2022 INDICATION: Dyspnea TECHNIQUE: Single frontal view of the chest is obtained. FINDINGS: The heart size is mildly prominent. The pulmonary vasculature is normal. Left lower lobe infiltrate is improved. Some minimal residual remaining at the costophrenic angle IMPRESSION: 1. Resolving left lower lobe infiltrate. Mild residual remains costophrenic angle. 2. Mld cardiomegaly stable
--- NOTE | 2022-11-19 13:15 | P.PN ---
Subjective Progress Note Date: 11/19/22 Principal diagnosis: Ovarian cancer. Reevaluated today on 11/11/2022, patient is about the same, continues to have cough and shortness. Had a long discussion with Dr. Richey yesterday regarding case, and he is planning to radiation therapy. In the meantime he showed me the CT of the chest which was done prior, and the patient seems to be developing bilateral pleural effusions, right more so on the left, I would recommend an ultrasound of the chest today, and the fluid is large enough would proceed with a right-sided thoracentesis mostly for diagnostic and therapeutic purposes. WBC count today is 17.5 hemoglobin is 10.6 sodium is up to 126. BUN is 53 creatinine 1.84. Patient is on fluid restriction, she is also on tolvaptan and she remains on demeclocycline. Her hydrocortisone dose will be cut down to 50 mg every 8 hours Patient was reevaluated today on 11/12/2022, patient continues to have cough and shortness of breath, had radiation treatment yesterday, she had right-sided thoracentesis yesterday, and I drained about 1000 mL of serosanguineous pleural effusion most likely malignant unless for otherwise. Cytology is pending. The fluid is exudative in nature, has LDH of 231 and a relatively elevated protein of 3040. Cytology is pending. Looking at the chest x-ray from yesterday, the left-sided pleural effusion is rather small, and I'm not recommending thoracentesis on the left pleural effusion at this point. Seems to be much smaller than the right side. Not to mention, awaiting cytology from the right- sided pleural effusion and we'll address that accordingly. Patient was reevaluated today on 11/13/2022, patient is mostly complaining of generalized weakness, fatigue, shortness of breath upon any activity, and weakness more pronounced than ever. Hence I'm recommending a Cortrosyn stimulation test on this patient patient has been on stress doses of hydrocortisone all along. Sodium is better, her labs are improving, cytology from the pleural effusion is pending biopsy results from the endobronchial tumors are pending patient had radiation already by Dr. Richey. Her labs today showed WBC count of 15.3 hemoglobin 10.9 sodium is 130 renal profile is improving BUN is 48 creatinine 1.47 Reevaluated today on 11/14/2022, patient is on 2 L nasal cannula O2 sats is on the percent. Feeling a bit better, able to take deeper breaths today compared to the last few days. However her sodium is down to 125, being addressed by nephrology. Remained generally weak. WBC 12.4 hemoglobin 10.8. BUN is 45 creatinine down to 1.39. Progress note dated 11/15/2022. The patient is seen today in room 355. She is currently on 2 L of oxygen. She 's getting saline at keep vein open. This morning, pathology was still pending. This included pathology on the pleural fluid, as well as on the bronchoscopy, and biopsies. She feels very short of breath, very fatigued and weak. Physical therapy has been ordered for this patient. White count 13, hemoglobin 10.7, hematocrit 34, with a normal platelet count. Sodium 124, potassium 4.2, chlorides 88, CO2 24, BUN 50, creatinine 1.22. Bronchial washings were positive for staph aureus. Chest x-ray shows some patchy infiltrates, left lower lobe. The patient continues on Ancef. Progress note dated 11/16/2022. The patient is seen today in room 355. She is currently on oxygen, at 2 L. She's getting saline at KVO. The pathology reports, finally did come back, showing tumor in the lung, consistent with the patient's primary ovarian carcinoma. The pleural fluid cytology was negative. Results of the biopsy were shared with the patient. Currently, the patient's biggest issue is some mild shortness of breath fatigue, and cough. All are being addressed. Lab data included a white count of 10.7, hemoglobin 11.1, hematocrit 34.4, and a normal platelet count. Sodium is 127, potassium 5, chlorides 91, CO2 28, BUN 52, and creatinine 1.45. Bronchial washings from November 08 show evidence of Staphylococcus aureus. Chest x-ray from November 15 show some infiltrate, or atelectasis, at the left lung base. Progress note dated 11/17/2022. The patient is seen today in room 355. She's currently on oxygen at 2.5 L. Her major issue is shortness of breath on exertion, and overwhelming fatigue. The patient had a brain CT, which was negative. She has not been seen by medical oncology since November 11. They need to get in there and talk to her about the next steps. No new labs today other than a glucose of 187. Bronchial washings were positive for Staphylococcus aureus. Progress note dated 11/18/2022. The patient is again seen today in room 355. The patient continues on oxygen at 3 L. I've reduce down to 2 L. Her saturations are 100%. In my opinion, the patient has unrealistic, and her expectations, in terms of how she will do. We did change her Solu-Medrol down to prednisone by mouth. In addition, I stopped her Pulmicort and her formoterol updrafts, and started her on Symbicort, 2 puffs twice a day. The patient has had 3 of 5 radiation treatments to the right lung. She was seen by the oncology nurse practitioner yesterday. The patient apparently has an appointment to see the medical oncologist down the road. She's not receiving any IV fluids. The Ancef was discontinued. Progress note dated 11/19/2022. 57-year-old female with history of metastatic ovarian carcinoma, seen in room 355. I had a long conversation with the patient and the patient's , were in the room. I even got Patel Richey, her radiation oncologist on the phone, and discuss options for this patient in front of the patient. The patient was going to have her fifth and final radiation treatment today. He indicated that the radiation to the right lung, would not work right away, except some time. The patient was found have significant endobronchial disease by my partner, and bronchoscopy was performed. Her breathing remains a major issues, and she is very short of breath with any activity and maintained on 3 L of oxygen, but becomes very short of breath with any activity. Current labs include a white count 12.5, hemoglobin 11.2, hematocrit 34.7, and a platelet count of 171,000. Sodium 121, potassium 5, chlorides 89, CO2 19, anion gap 13, BUN 75, and creatinine 1.87. Bronchoscopy washings from November 08 were positive for staph aureus, and that was treated. Chest x-ray shows resolving left lower lobe infiltrate. Objective - Vital Signs Vital signs: Vital Signs Temp 97.4 F L 11/19/22 04:00 Pulse 80 11/19/22 08:30 Resp 16 11/19/22 08:00 BP 103/63 11/19/22 08:00 Pulse Ox 95 11/19/22 08:00 FiO2 Intake & Output 11/18/22 11/19/22 11/19/22 18:59 06:59 18:59 Intake Total 300 250 Output Total 390 800 250 Balance -90 -550 -250 Weight 88.8 kg 88.8 kg Intake: Intake, IV Titration 250 Amount Sodium Chloride 0.9% 500 250 ml 250 ml @ 999 mls/hr IV .Q16M ONE Rx#:[id number] Oral 300 Output: Urine 800 250 Post Void Residual 390 Other: Voiding Method Toilet Toilet # Voids 1 - Exam No acute distress, oriented 3. Currently on 3 L. No respiratory distress. No conversational dyspnea. HEENT examination is grossly unremarkable. Mucous membranes are moist. No oral lesions. Neck supple. Full range of motion. No adenopathy thyromegaly or neck vein distention. Cardiovascular examination reveals regular rhythm rate. S1-S2 normal. No S3 or S4. No discernible murmur noted. Heart rate 80 bpm. Lungs reveal scattered rhonchi, particularly in the right lung. Mild expiratory wheezes. No crackles. Saturations are excellent. Saturations are 95%. Abdomen soft bowel sounds are heard. No masses or tenderness. Extremities are intact. No cyanosis clubbing or edema. Skin is without rash or lesion. Neurologic examination is brief but nonfocal. - Labs CBC & Chem 7: 11/19/22 07:36 11/19/22 07:36 Labs: Abnormal Lab Results - Last 24 Hours (Table) 11/18/22 11/18/22 11/18/22 Range/Units 16:35 19:57 20:01 WBC (3.8-10.6) k/uL RBC (3.80-5.40) m/uL Hgb (11.4-16.0) gm/dL MCV (80.0-100.0) fL RDW (11.5-15.5) % Neutrophils # (1.3-7.7) k/uL Sodium 121 L (137-145) mmol/L Chloride (98-107) mmol/L Carbon Dioxide (22-30) mmol/L BUN (7-17) mg/dL Creatinine (0.52-1.04) mg/dL Glucose (74-99) mg/dL POC Glucose (mg/dL) 168 H 158 H (70-110) mg/dL Alkaline Phosphatase (38-126) U/L Total Protein (6.3-8.2) g/dL Albumin (3.5-5.0) g/dL 11/19/22 11/19/22 11/19/22 Range/Units 06:11 07:36 07:36 WBC 12.5 H (3.8-10.6) k/uL RBC 3.39 L (3.80-5.40) m/uL Hgb 11.2 L (11.4-16.0) gm/dL MCV 102.3 H (80.0-100.0) fL RDW 17.8 H (11.5-15.5) % Neutrophils # 10.8 H (1.3-7.7) k/uL Sodium 121 L (137-145) mmol/L Chloride 89 L (98-107) mmol/L Carbon Dioxide 19 L (22-30) mmol/L BUN 75 H (7-17) mg/dL Creatinine 1.87 H (0.52-1.04) mg/dL Glucose 149 H (74-99) mg/dL POC Glucose (mg/dL) 148 H (70-110) mg/dL Alkaline Phosphatase 185 H (38-126) U/L Total Protein 5.8 L (6.3-8.2) g/dL Albumin 3.3 L (3.5-5.0) g/dL 11/19/22 Range/Units 11:19 WBC (3.8-10.6) k/uL RBC (3.80-5.40) m/uL Hgb (11.4-16.0) gm/dL MCV (80.0-100.0) fL RDW (11.5-15.5) % Neutrophils # (1.3-7.7) k/uL Sodium (137-145) mmol/L Chloride (98-107) mmol/L Carbon Dioxide (22-30) mmol/L BUN (7-17) mg/dL Creatinine (0.52-1.04) mg/dL Glucose (74-99) mg/dL POC Glucose (mg/dL) 254 H (70-110) mg/dL Alkaline Phosphatase (38-126) U/L Total Protein (6.3-8.2) g/dL Albumin (3.5-5.0) g/dL Assessment and Plan Assessment: Acute shortness of breath, likely multifactorial, in part related to mild fluid overload/CHF, acute bronchitis with bronchospasm, as well as possible iatrogenic pneumonitis, related to Zejula. Metastatic ovarian carcinoma, with significant endobronchial disease in the right upper lobe, right middle lobe, and right lower lobe, status post bronchoscopy, with pathology positive for metastatic ovarian carcinoma,S/P 5 radiation treatments to the right lung. Paroxysmal atrial flutter. Status post right-sided thoracentesis, cytology negative. Hyponatremia, secondary to SIADH. Staph. aureus, bronchopneumonia/tracheobronchitis, currently on Ancef. Rule out active infection/bronchopneumonia, less likely. Metastatic ovarian carcinoma, diagnosed in 2008, with recurrence. The patient has diffuse adenopathy, both in the abdominal cavity and thoracic cavity. Metastatic pulmonary nodule. History of malignant pericardial effusion, status post pericardial window. Plan: Plan dated 10/31/2022. A pro-calcitonin level will be checked. Currently, the patient's on Pulmicort 1 mg, twice a day, mixed with formoterol, 20 g, twice a day. In addition, the patient's receiving updrafts with albuterol sulfate and ipratropium bromide. The patient is also on Solu-Medrol, 60 mg every 6 hours. Finally, the patient was placed on Rocephin, which was given to her in the emergency department. Labs, x-rays, medications are all reviewed. The patient is also receiving some Lasix, for possible mild fluid overload, although the N-terminal proBNP level was only 443. We will continue to follow the patient and make recommendations along the way. Her respiratory status appears to be relatively stable at this time. Plan dated 11/15/2022. The patient remains on 2 L of oxygen. She's received some radiation to the right chest area, with some improvement in her breathing. Her lung sounds are improved on the right side. The patient is on a fluid restriction for SIADH. She is also receiving treatment for same. Pathology reports, on the bronchoscopy, and cytology reports, on the pleural fluid, are pending. Physical therapy has been ordered for this patient. Labs, x-rays, medications are reviewed. Prognosis is certainly very guarded. Plan dated 11/16/2022. The patient remains on 2 L of oxygen. Saturations ranged from 95%, up to 98%. The patient complains primarily of fatigue, and cough. The cough likely reflects irritation from the endobronchial tumor. Pathology reports on the bronchoscopy and biopsy, were positive for metastatic ovarian carcinoma. Pleura l fluid cytology was negative. The patient was seen by physical therapy yesterday. We will continue to follow and make recommendations along the way. She is to receive additional radiation. She remains on Ancef for her staph infection. Prognosis is very guarded. Plan dated 11/17/2022. The patient remains on oxygen at 2.5 L. Saturations are 100%. The oxygen can be titrated down. The patient's major complaint is that of fatigue. Labs, x- rays, and medications are reviewed. She has not been seen by medical oncology and a number of days, and they should get back in there to see her and discuss the next steps. The patient continues on Ancef. The patient's hydrocortisone was converted to prednisone 30 mg a day. Also, the patient's budesonide, and formoterol, are changed to Symbicort. Additional recommendations and suggestions are forthcoming. We will continue to follow. The prognosis is guarded. Plan dated 11/18/2022. The patient's oxygen was turned down from 3 L, down to 2 L. Saturations are in the mid 90s. The patient's Solu-Medrol was discontinued in favor of prednisone. In addition, the patient's Ancef was discontinued. Also, the Pulmicort solution, and formoterol solution, I changed to Symbicort. Additional recommendations and suggestions are forthcoming. Prognosis is guarded. The medical oncology nurse practitioner did see the patient yesterday. The plan is to hopefully get her well enough, to see her medical oncologist, Dr. Thibodeaux, so that he can recommend additional treatments. Her overall prognosis in my opinion is very poor. Plan dated 11/19/2022. The patient's overall prognosis in my opinion, remains poor. The patient's respiratory status has declined since she's been here. I had a long conversation with the patient and the patient's , along with her radiation oncologist, Dr. Patel Richey. He said he was going to talk to the patient, and the patient's regular medical oncologist, Dr. Thibodeaux, who works at [facility]. Not sure this point, what more we can do for this patient. Were hoping that the radiation treatments helps to alleviate the burden of the disease in the right lung. Hopefully, this will improve her breathing. The patient's overall prognosis is very poor though. In addition, she appears to rose ve developed significant depression, and I feel like she might be giving up. Time with Patient: Less than 30
--- NOTE | 2022-11-19 16:06 | P.PN ---
Subjective Progress Note Date: 11/19/22 Principal diagnosis: metastatic ovarian cancer At today's visit patient is c/o she has some improvement in her cough but is still easily fatigued and SOB on exertion. Discussed with patient that we spoke with Dr. Richey today who spoke with Dr. Thibodeaux her primary oncologist and that he recommended to see if the RT treatments improve symptoms and if no noticeable improvements are seen will consider transfer to [facility] next week. She continues on breathing treatments, inhalers and prednisone. Sodium 121 today, nephrology following. Objective - Vital Signs Vital signs: Vital Signs Temp 97.5 F L 11/19/22 12:00 Pulse 76 11/19/22 14:00 Resp 16 11/19/22 14:00 BP 96/58 11/19/22 12:00 Pulse Ox 96 11/19/22 12:00 FiO2 Intake & Output 11/18/22 11/19/22 11/19/22 18:59 06:59 18:59 Intake Total 300 250 Output Total 390 800 250 Balance -90 -550 -250 Weight 88.8 kg 88.8 kg Intake: Intake, IV Titration 250 Amount Sodium Chloride 0.9% 500 250 ml 250 ml @ 999 mls/hr IV .Q16M ONE Rx#:[id number] Oral 300 Output: Urine 800 250 Post Void Residual 390 Other: Voiding Method Toilet Toilet # Voids 1 - Constitutional General appearance: Present: average body habitus, no acute distress - EENT Eyes: Present: anicteric sclerae, EOMI ENT: Present: hearing grossly normal - Respiratory Respiratory: bilateral: diminished - Cardiovascular Rhythm: regular Heart sounds: normal: S1, S2 Abnormal Heart Sounds: Absent: systolic murmur, diastolic murmur, rub, S3 Gallop, S4 Gallop, click, other - Integumentary Integumentary: Absent: cyanotic - Neurologic Neurologic Comment(s): grossly intact - Musculoskeletal Musculoskeletal: Present: generalized weakness - Psychiatric Psychiatric: Present: A&O x's 3, appropriate affect, intact judgment & insight - Labs CBC & Chem 7: 11/19/22 07:36 11/19/22 07:36 Labs: Abnormal Lab Results - Last 24 Hours (Table) 11/18/22 11/18/22 11/18/22 Range/Units 16:35 19:57 20:01 WBC (3.8-10.6) k/uL RBC (3.80-5.40) m/uL Hgb (11.4-16.0) gm/dL MCV (80.0-100.0) fL RDW (11.5-15.5) % Neutrophils # (1.3-7.7) k/uL Sodium 121 L (137-145) mmol/L Chloride (98-107) mmol/L Carbon Dioxide (22-30) mmol/L BUN (7-17) mg/dL Creatinine (0.52-1.04) mg/dL Glucose (74-99) mg/dL POC Glucose (mg/dL) 168 H 158 H (70-110) mg/dL Alkaline Phosphatase (38-126) U/L Total Protein (6.3-8.2) g/dL Albumin (3.5-5.0) g/dL 11/19/22 11/19/22 11/19/22 Range/Units 06:11 07:36 07:36 WBC 12.5 H (3.8-10.6) k/uL RBC 3.39 L (3.80-5.40) m/uL Hgb 11.2 L (11.4-16.0) gm/dL MCV 102.3 H (80.0-100.0) fL RDW 17.8 H (11.5-15.5) % Neutrophils # 10.8 H (1.3-7.7) k/uL Sodium 121 L (137-145) mmol/L Chloride 89 L (98-107) mmol/L Carbon Dioxide 19 L (22-30) mmol/L BUN 75 H (7-17) mg/dL Creatinine 1.87 H (0.52-1.04) mg/dL Glucose 149 H (74-99) mg/dL POC Glucose (mg/dL) 148 H (70-110) mg/dL Alkaline Phosphatase 185 H (38-126) U/L Total Protein 5.8 L (6.3-8.2) g/dL Albumin 3.3 L (3.5-5.0) g/dL 11/19/22 Range/Units 11:19 WBC (3.8-10.6) k/uL RBC (3.80-5.40) m/uL Hgb (11.4-16.0) gm/dL MCV (80.0-100.0) fL RDW (11.5-15.5) % Neutrophils # (1.3-7.7) k/uL Sodium (137-145) mmol/L Chloride (98-107) mmol/L Carbon Dioxide (22-30) mmol/L BUN (7-17) mg/dL Creatinine (0.52-1.04) mg/dL Glucose (74-99) mg/dL POC Glucose (mg/dL) 254 H (70-110) mg/dL Alkaline Phosphatase (38-126) U/L Total Protein (6.3-8.2) g/dL Albumin (3.5-5.0) g/dL Assessment and Plan (1) Acute bronchospasm Current Visit: Yes Status: Acute Priority: High Code(s): J98.01 - ACUTE BRONCHOSPASM SNOMED Code(s): 60314323784290 (2) Primary malignant neoplasm of ovary with widespread metastatic disease Current Visit: Yes Status: Chronic Priority: High Code(s): C56.9 - MALIGNANT NEOPLASM OF UNSPECIFIED OVARY; C80.0 - DISSEMINATED MALIGNANT NEOPLASM, UNSPECIFIED SNOMED Code(s): 243000058 (3) Macrocytic anemia Current Visit: Yes Status: Chronic Priority: Medium Code(s): D53.9 - NUTRITIONAL ANEMIA, UNSPECIFIED SNOMED Code(s): 82424874 Plan: Wheezing, dyspnea -Recurrent after completing prednisone taper from admit 10/07/2022 -S/p right sided thoracentesis with 950 mL removed and broncoscopy with lavage/washing and biopsy of RUL/RML. right pleural fluid negative for malignancy. Right upper lobe brushing compatible with non-small cell carcinoma. Right upper lobe and right middle lobe transbronchial biopsy positive for metastatic non-mucinous mullerian/ovarian carcinoma -Radiation Oncology evaluation. Has completed 5/5 fractions of palliative radiation to endobronchial lesions. Discussed with patient the intent of RT and that this is palliative for symptom management. -Discussed case with Dr. Richey today who spoke with Dr. Thibodeaux her primary oncologist and that he recommended to see if the RT treatments improve symptoms and if no noticeable improvements are seen will consider transfer to [facility] next week. -Continues on prednisone, breathing treatments and inhalers -Will plan on 6 week slow taper for treatment of likely underlying pneumonitis 2/2 niraparib treatment, complicated by metastatic disease and possible pneumo dylan. -pulmonology following Metastatic ovarian adenocarcinoma: -Follows with Dr. Thibodeaux and Dr. Cerda. -Completed 7 cycles of Doxil/carbo 03/06, maintenance Zejula 05/2022-09/10/22 -Pericardial fluid and pericardium biopsy obtained 08/05, were positive for metastatic ovarian carcinoma, PET showed metastatic disease in July. -Dr. Thibodeaux recommended optimizing her pulmonary function prior to proceeding with additional treatment -F/U with Dr. Thibodeaux was missed due to hospitalization, pt will reschedule upon discharge. Macrocytic anemia -Hgb near baseline, stable 11.2 -Anemia likely due to Hx of chemotherapy -No nutritional deficiency anemias noted. TSH WNL -Transfuse if symptomatic or Hgb <7. Hyponatremia -SIADH from malignancy -Nephrology has been following. -Demeclocycline and samsca ordered and pt placed on fluid restrictions, Sodium 121 Dr attests: I performed H&P and developed impression and plan of care for patient, discussed with dictator. I agree with dictated note, documented as a scribe
[2022-11-19 16:19] LABS: Glucose,Whole Blood 158 mg/dL (70-110)
[2022-11-19 19:46] LABS: Glucose,Whole Blood 164 mg/dL (70-110)
[2022-11-19] MEDS: INSULIN DETEMIR (LEVEMIR) 100 UNIT/ML SYR SQ SCH (21:59)
[2022-11-19] MEDS: SENNOSIDES-DOCUSATE SODIUM 1 EACH TAB PO SCH (22:01)
[2022-11-19] MEDS: ZYRTEC 10MG TABLET PO SCH (22:01)
[2022-11-20] MEDS: IPRATROPIUM-ALBUTEROL 3 ML NEB INHALATION SCH ×7 (01:11→23:38)
[2022-11-20] MEDS: guaiFENesin-DM 100-10MG/5ML 10 ML CUP PO PRN ×3 (02:02→21:23)
[2022-11-20] MEDS: HYDROcodone/APAP 5-325MG 1 EACH TAB PO PRN (04:57)
[2022-11-20 06:05] LABS: Glucose,Whole Blood 127 mg/dL (70-110)
[2022-11-20] MEDS: INSULIN ASPART (NovoLOG) 100 UNIT/ML VIAL SQ SCH ×7 (06:23→21:11)
[2022-11-20 08:31] LABS: Anion Gap 12 mmol/L; Blood Urea Nitrogen 90 mg/dL (7-17); Calcium 8.5 mg/dL (8.4-10.2); Carbon Dioxide 19 mmol/L (22-30); Chloride 87 mmol/L (98-107); Glucose 116 mg/dL (74-99)
[2022-11-20 08:37] LABS: African American GFR (CKD) 30 (>60 ml/min/1.73 sqM); Non-African American GFR(CKD) 26 (>60 ml/min/1.73 sqM)
[2022-11-20] MEDS: SYMBICORT 160-4.5 MCG INHALER INHALATION SCH (08:49)
[2022-11-20 09:03] LABS: Potassium 5.8 mmol/L (3.5-5.1); Sodium 118 mmol/L (137-145)
[2022-11-20] MEDS ORDERED: SODIUM BICARB 8.4% 50 ML SYR (1 MEQ/ML) IV STA (09:21)
[2022-11-20] MEDS ORDERED: TOLVAPTAN 15 MG TABLET PO ONE ×2 (09:21→19:06)
[2022-11-20] MEDS ORDERED: SODIUM ZIRCONIUM CYCLOSILICATE 10 GM PACKET PO ONE (09:21)
[2022-11-20] MEDS ORDERED: FUROSEMIDE 10 MG/ML 4 ML VIAL IV STA (09:21)
--- NOTE | 2022-11-20 09:25 | P.PN ---
Subjective Patient is seen in follow-up for acute kidney injury and hyponatremia. Sodium level 118 this morning and creatinine 2.07. Oral intake remains poor. Does complain of swelling in lower extremity. Denies vomiting or diarrhea. Vital signs are stable. General: No acute distress. HEENT: Head exam is unremarkable. LUNGS: No audible rhonchi or wheezes. HEART: Rate and Rhythm are regular. ABDOMEN: Nontender. EXTREMITITES: 2+ edema. Objective - Vital Signs Vital signs: Vital Signs Temp 97.3 F L 11/20/22 04:55 Pulse 80 11/20/22 09:05 Resp 18 11/20/22 04:55 BP 119/58 11/20/22 04:55 Pulse Ox 95 11/20/22 08:49 FiO2 Intake & Output 11/19/22 11/20/22 11/20/22 18:59 06:59 18:59 Intake Total 790 200 Output Total 475 250 Balance 315 -50 Weight 88.8 kg Intake: Oral 790 200 Output: Urine 475 250 Other: Voiding Method Toilet Toilet # Voids 1 - Labs CBC & Chem 7: 11/19/22 07:36 11/20/22 08:00 Labs: Abnormal Lab Results - Last 24 Hours (Table) 11/19/22 11/19/22 11/19/22 Range/Units 11:19 16:18 19:45 Sodium (137-145) mmol/L Potassium (3.5-5.1) mmol/L Chloride (98-107) mmol/L Carbon Dioxide (22-30) mmol/L BUN (7-17) mg/dL Creatinine (0.52-1.04) mg/dL Glucose (74-99) mg/dL POC Glucose (mg/dL) 254 H 158 H 164 H (70-110) mg/dL 11/20/22 11/20/22 Range/Units 06:03 08:00 Sodium 118 L* (137-145) mmol/L Potassium 5.8 H (3.5-5.1) mmol/L Chloride 87 L (98-107) mmol/L Carbon Dioxide 19 L (22-30) mmol/L BUN 90 H (7-17) mg/dL Creatinine 2.07 H (0.52-1.04) mg/dL Glucose 116 H (74-99) mg/dL POC Glucose (mg/dL) 127 H (70-110) mg/dL Assessment and Plan Plan: Assessment: 1. Hyponatremia, hypervolemic. 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 Sodium level 118 this morning. Urine osmolality 535. 2. Metastatic ovarian cancer. 3. Acute kidney injury secondary to ATN secondary to hypotension. Creatinine 2.07 today. 4. Acute hypoxic respiratory failure. History of pericardial window and also underwent right thoracentesis with 950 cc drained this admission. 5. Hyperkalemia secondary to acute kidney injury and acidosis. Hemolyzed sample. 6. A flutter. Now in sinus rhythm. Seen by cardiology. 7. Edema. Plan: Maintain fluid restriction. Lasix 40 mg IV once today. Samsca 30 mg once today. Lokelma 10 g once now. 2 A of sodium bicarbonate IV push now. Add oral bicarbonate. Repeat BMP this evening. Repeat urine studies. Prognosis guarded.
[2022-11-20] MEDS: METOPROLOL TARTRATE 12.5 MG TAB PO SCH ×2 (09:54→21:10)
[2022-11-20] MEDS: HEPARIN SODIUM,PORCINE/PF 5,000 UNIT/0.5 ML SYRINGE SQ SCH ×2 (09:54→21:10)
[2022-11-20] MEDS: predniSONE 10 MG TAB PO SCH (09:54)
[2022-11-20] MEDS: BENZONATATE 100 MG CAP PO SCH ×3 (09:54→21:10)
[2022-11-20] MEDS: FLUCONAZOLE 150 MG TAB PO SCH (09:54)
[2022-11-20] MEDS: MIDODRINE 5 MG TAB PO SCH ×3 (09:54→16:56)
[2022-11-20] MEDS: MEGESTROL 400 MG/10 ML CUP PO SCH (09:55)
[2022-11-20] MEDS: FAMOTIDINE 20 MG TAB PO SCH (09:55)
[2022-11-20] MEDS: DEMECLOCYCLINE 150 MG TAB PO SCH ×2 (09:55→21:23)
[2022-11-20] MEDS: AMIODARONE 200 MG TAB PO SCH ×2 (09:55→21:11)
[2022-11-20] MEDS: FLUTICASONE 50MCG/SPRAY NASAL 16GM EA NOSTRIL SCH ×2 (09:56→21:12)
[2022-11-20] MEDS: SODIUM BICARBONATE TAB 650 MG TAB PO SCH ×2 (10:14→21:09)
--- NOTE | 2022-11-20 11:17 | P.PN ---
Subjective Progress Note Date: 11/20/22 Principal diagnosis: Ovarian cancer. Reevaluated today on 11/11/2022, patient is about the same, continues to have cough and shortness. Had a long discussion with Dr. Ricehy yesterday regarding case, and he is planning to radiation therapy. In the meantime he showed me the CT of the chest which was done prior, and the patient seems to be developing bilateral pleural effusions, right more so on the left, I would recommend an ultrasound of the chest today, and the fluid is large enough would proceed with a right-sided thoracentesis mostly for diagnostic and therapeutic purposes. WBC count today is 17.5 hemoglobin is 10.6 sodium is up to 126. BUN is 53 creatinine 1.84. Patient is on fluid restriction, she is also on tolvaptan and she remains on demeclocycline. Her hydrocortisone dose will be cut down to 50 mg every 8 hours Patient was reevaluated today on 11/12/2022, patient continues to have cough and shortness of breath, had radiation treatment yesterday, she had right-sided thoracentesis yesterday, and I drained about 1000 mL of serosanguineous pleural effusion most likely malignant unless for otherwise. Cytology is pending. The fluid is exudative in nature, has LDH of 231 and a relatively elevated protein of 3040. Cytology is pending. Looking at the chest x-ray from yesterday, the left-sided pleural effusion is rather small, and I'm not recommending thoracentesis on the left pleural effusion at this point. Seems to be much smaller than the right side. Not to mention, awaiting cytology from the right- sided pleural effusion and we'll address that accordingly. Patient was reevaluated today on 11/13/2022, patient is mostly complaining of generalized weakness, fatigue, shortness of breath upon any activity, and weakness more pronounced than ever. Hence I'm recommending a Cortrosyn stimulation test on this patient patient has been on stress doses of hydrocortisone all along. Sodium is better, her labs are improving, cytology from the pleural effusion is pending biopsy results from the endobronchial tumors are pending patient had radiation already by Dr. Richey. Her labs today showed WBC count of 15.3 hemoglobin 10.9 sodium is 130 renal profile is improving BUN is 48 creatinine 1.47 Reevaluated today on 11/14/2022, patient is on 2 L nasal cannula O2 sats is on the percent. Feeling a bit better, able to take deeper breaths today compared to the last few days. However her sodium is down to 125, being addressed by nephrology. Remained generally weak. WBC 12.4 hemoglobin 10.8. BUN is 45 creatinine down to 1.39. Progress note dated 11/15/2022. The patient is seen today in room 355. She is currently on 2 L of oxygen. She 's getting saline at keep vein open. This morning, pathology was still pending. This included pathology on the pleural fluid, as well as on the bronchoscopy, and biopsies. She feels very short of breath, very fatigued and weak. Physical therapy has been ordered for this patient. White count 13, hemoglobin 10.7, hematocrit 34, with a normal platelet count. Sodium 124, potassium 4.2, chlorides 88, CO2 24, BUN 50, creatinine 1.22. Bronchial washings were positive for staph aureus. Chest x-ray shows some patchy infiltrates, left lower lobe. The patient continues on Ancef. Progress note dated 11/16/2022. The patient is seen today in room 355. She is currently on oxygen, at 2 L. She's getting saline at KVO. The pathology reports, finally did come back, showing tumor in the lung, consistent with the patient's primary ovarian carcinoma. The pleural fluid cytology was negative. Results of the biopsy were shared with the patient. Currently, the patient's biggest issue is some mild shortness of breath fatigue, and cough. All are being addressed. Lab data included a white count of 10.7, hemoglobin 11.1, hematocrit 34.4, and a normal platelet count. Sodium is 127, potassium 5, chlorides 91, CO2 28, BUN 52, and creatinine 1.45. Bronchial washings from November 08 show evidence of Staphylococcus aureus. Chest x-ray from November 15 show some infiltrate, or atelectasis, at the left lung base. Progress note dated 11/17/2022. The patient is seen today in room 355. She's currently on oxygen at 2.5 L. Her major issue is shortness of breath on exertion, and overwhelming fatigue. The patient had a brain CT, which was negative. She has not been seen by medical oncology since November 11. They need to get in there and talk to her about the next steps. No new labs today other than a glucose of 187. Bronchial washings were positive for Staphylococcus aureus. Progress note dated 11/18/2022. The patient is again seen today in room 355. The patient continues on oxygen at 3 L. I've reduce down to 2 L. Her saturations are 100%. In my opinion, the patient has unrealistic, and her expectations, in terms of how she will do. We did change her Solu-Medrol down to prednisone by mouth. In addition, I stopped her Pulmicort and her formoterol updrafts, and started her on Symbicort, 2 puffs twice a day. The patient has had 3 of 5 radiation treatments to the right lung. She was seen by the oncology nurse practitioner yesterday. The patient apparently has an appointment to see the medical oncologist down the road. She's not receiving any IV fluids. The Ancef was discontinued. Progress note dated 11/19/2022. 57-year-old female with history of metastatic ovarian carcinoma, seen in room 355. I had a long conversation with the patient and the patient's , were in the room. I even got Patel Richey, her radiation oncologist on the phone, and discuss options for this patient in front of the patient. The patient was going to have her fifth and final radiation treatment today. He indicated that the radiation to the right lung, would not work right away, except some time. The patient was found have significant endobronchial disease by my partner, and bronchoscopy was performed. Her breathing remains a major issues, and she is very short of breath with any activity and maintained on 3 L of oxygen, but becomes very short of breath with any activity. Current labs include a white count 12.5, hemoglobin 11.2, hematocrit 34.7, and a platelet count of 171,000. Sodium 121, potassium 5, chlorides 89, CO2 19, anion gap 13, BUN 75, and creatinine 1.87. Bronchoscopy washings from November 08 were positive for staph aureus, and that was treated. Chest x-ray shows resolving left lower lobe infiltrate. Progress note dated 11/20/2022. The patient is seen today in room 355. She's currently on 4 L of oxygen. Her sodium today is 118. She's very short of breath with any activity. The patient would prefer Pulmicort and formoterol updrafts, as opposed to Symbicort. The changes made for her. She remains on all of the medications. She had her fifth and final radiation treatment yesterday. Sodium 118, potassium 5.8, chloride 87, CO2 19, anion gap 12, BUN 90, and creatinine 2.07. Objective - Vital Signs Vital signs: Vital Signs Temp 97.3 F L 11/20/22 04:55 Pulse 80 11/20/22 09:05 Resp 18 11/20/22 04:55 BP 119/58 11/20/22 04:55 Pulse Ox 95 11/20/22 08:49 FiO2 Intake & Output 11/19/22 11/20/22 11/20/22 18:59 06:59 18:59 Intake Total 790 200 Output Total 475 250 Balance 315 -50 Weight 88.8 kg Intake: Oral 790 200 Output: Urine 475 250 Other: Voiding Method Toilet Toilet # Voids 1 - Exam No acute distress, oriented 3. Currently on 4 L. No respiratory distress. No conversational dyspnea. HEENT examination is grossly unremarkable. Mucous membranes are moist. No oral lesions. Neck supple. Full range of motion. No adenopathy thyromegaly or neck vein distention. Cardiovascular examination reveals regular rhythm rate. S1-S2 normal. No S3 or S4. No discernible murmur noted. Heart rate 76 bpm. Lungs reveal scattered rhonchi, particularly in the right lung. Mild expiratory wheezes. No crackles. Saturations are excellent. Saturations are 100 %. Abdomen soft bowel sounds are heard. No masses or tenderness. Extremities are intact. No cyanosis clubbing or edema. Skin is without rash or lesion. Neurologic examination is brief but nonfocal. - Labs CBC & Chem 7: 11/19/22 07:36 11/20/22 08:00 Labs: Abnormal Lab Results - Last 24 Hours (Table) 11/19/22 11/19/22 11/19/22 Range/Units 11:19 16:18 19:45 Sodium (137-145) mmol/L Potassium (3.5-5.1) mmol/L Chloride (98-107) mmol/L Carbon Dioxide (22-30) mmol/L BUN (7-17) mg/dL Creatinine (0.52-1.04) mg/dL Glucose (74-99) mg/dL POC Glucose (mg/dL) 254 H 158 H 164 H (70-110) mg/dL 11/20/22 11/20/22 Range/Units 06:03 08:00 Sodium 118 L* (137-145) mmol/L Potassium 5.8 H (3.5-5.1) mmol/L Chloride 87 L (98-107) mmol/L Carbon Dioxide 19 L (22-30) mmol/L BUN 90 H (7-17) mg/dL Creatinine 2.07 H (0.52-1.04) mg/dL Glucose 116 H (74-99) mg/dL POC Glucose (mg/dL) 127 H (70-110) mg/dL Assessment and Plan Assessment: Acute shortness of breath, likely multifactorial, in part related to mild fluid overload/CHF, acute bronchitis with bronchospasm, as well as possible iatrogenic pneumonitis, related to Zejula. Metastatic ovarian carcinoma, with significant endobronchial disease in the right upper lobe, right middle lobe, and right lower lobe, status post bronchoscopy, with pathology positive for metastatic ovarian carcinoma,S/P 5 radiation treatments to the right lung. Paroxysmal atrial flutter. Status post right-sided thoracentesis, cytology negative. Hyponatremia, secondary to SIADH. Staph. aureus, bronchopneumonia/tracheobronchitis, currently on Ancef. Rule out active infection/bronchopneumonia, less likely. Metastatic ovarian carcinoma, diagnosed in 2008, with recurrence. The patient has diffuse adenopathy, both in the abdominal cavity and thoracic cavity. Metastatic pulmonary nodule. History of malignant pericardial effusion, status post pericardial window. Plan: Plan dated 10/31/2022. A pro-calcitonin level will be checked. Currently, the patient's on Pulmicort 1 mg, twice a day, mixed with formoterol, 20 g, twice a day. In addition, the patient's receiving updrafts with albuterol sulfate and ipratropium bromide. The patient is also on Solu-Medrol, 60 mg every 6 hours. Finally, the patient was placed on Rocephin, which was given to her in the emergency department. Labs, x-rays, medications are all reviewed. The patient is also receiving some Lasix, for possible mild fluid overload, although the N-terminal proBNP level was only 443. We will continue to follow the patient and make recommendations along the way. Her respiratory status appears to be relatively stable at this time. Plan dated 11/15/2022. The patient remains on 2 L of oxygen. She's received some radiation to the right chest area, with some improvement in her breathing. Her lung sounds are improved on the right side. The patient is on a fluid restriction for SIADH. She is also receiving treatment for same. Pathology reports, on the bronchoscopy, and cytology reports, on the pleural fluid, are pending. Physical therapy has been ordered for this patient. Labs, x-rays, medications are reviewed. Prognosis is certainly very guarded. Plan dated 11/16/2022. The patient remains on 2 L of oxygen. Saturations ranged from 95%, up to 98%. The patient complains primarily of fatigue, and cough. The cough likely reflects irritation from the endobronchial tumor. Pathology reports on the bronchoscopy and biopsy, were positive for metastatic ovarian carcinoma. Pleural fluid cytology was negative. The patient was seen by physical therapy yesterday. We will continue to follow and make recommendations along the way. She is to receive additional radiation. She remains on Ancef for her staph infection. Prognosis is very guarded. Plan dated 11/17/2022. The patient remains on oxygen at 2.5 L. Saturations are 100%. The oxygen can be titrated down. The patient's major complaint is that of fatigue. Labs, x- rays, and medications are reviewed. She has not been seen by medical oncology and a number of days, and they should get back in there to see her and discuss the next steps. The patient continues on Ancef. The patient's hydrocortisone w as converted to prednisone 30 mg a day. Also, the patient's budesonide, and formoterol, are changed to Symbicort. Additional recommendations and suggestions are forthcoming. We will continue to follow. The prognosis is guarded. Plan dated 11/18/2022. The patient's oxygen was turned down from 3 L, down to 2 L. Saturations are in the mid 90s. The patient's Solu-Medrol was discontinued in favor of prednisone. In addition, the patient's Ancef was discontinued. Also, the Pulmicort solution, and formoterol solution, I changed to Symbicort. Additional recommendations and suggestions are forthcoming. Prognosis is guarded. The medical oncology nurse practitioner did see the patient yesterday. The plan is to hopefully get her well enough, to see her medical oncologist, Dr. Thibodeaux, so that he can recommend additional treatments. Her overall prognosis in my opinion is very poor. Plan dated 11/19/2022. The patient's overall prognosis in my opinion, remains poor. The patient's resp iratory status has declined since she's been here. I had a long conversation with the patient and the patient's , along with her radiation oncologist, Dr. Patel Richey. He said he was going to talk to the patient, and the patient's regular medical oncologist, Dr. Thibodeaux, who works at [facility]. Not sure this point, what more we can do for this patient. Were hoping that the radiation treatments helps to alleviate the burden of the disease in the right lung. Hopefully, this will improve her breathing. The patient's overall prognosis is very poor though. In addition, she appears to have developed significant depression, and I feel like she might be giving up. Plan dated 11/20/2022. In my opinion, from the pulmonary perspective, not much more to add to this patient's treatment regimen. The patient completed her fourth radiation treatment yesterday. The patient's on all other appropriate bronchodilators steroids. The patient is profoundly short of breath and very weak with any activity. We've had long conversations with her, her , and the rest of her team. Labs, x-rays, and medications are reviewed. Prognosis is poor. Time with Patient: Less than 30
[2022-11-20 11:35] LABS: Glucose,Whole Blood 259 mg/dL (70-110)
--- NOTE | 2022-11-20 12:59 | P.PN ---
Subjective Progress Note Date: 11/20/22 The patient is seen at bedside and denies any further episodes of visual disturbance. She does not want to pursue with MRI Brain as inpatient. Objective - Vital Signs Vital signs: Vital Signs Temp 97.3 F L 11/20/22 04:55 Pulse 80 11/20/22 09:05 Resp 18 11/20/22 08:00 BP 95/53 11/20/22 08:00 Pulse Ox 95 11/20/22 08:49 FiO2 Intake & Output 11/19/22 11/20/22 11/20/22 18:59 06:59 18:59 Intake Total 790 200 Output Total 475 250 Balance 315 -50 Weight 88.8 kg Intake: Oral 790 200 Output: Urine 475 250 Other: Voiding Method Toilet Toilet Toilet # Voids 1 - Labs CBC & Chem 7: 11/19/22 07:36 11/20/22 08:00 Labs: Abnormal Lab Results - Last 24 Hours (Table) 11/19/22 11/19/22 11/20/22 Range/Units 16:18 19:45 06:03 Sodium (137-145) mmol/L Potassium (3.5-5.1) mmol/L Chloride (98-107) mmol/L Carbon Dioxide (22-30) mmol/L BUN (7-17) mg/dL Creatinine (0.52-1.04) mg/dL Glucose (74-99) mg/dL POC Glucose (mg/dL) 158 H 164 H 127 H (70-110) mg/dL 11/20/22 11/20/22 Range/Units 08:00 11:32 Sodium 118 L* (137-145) mmol/L Potassium 5.8 H (3.5-5.1) mmol/L Chloride 87 L (98-107) mmol/L Carbon Dioxide 19 L (22-30) mmol/L BUN 90 H (7-17) mg/dL Creatinine 2.07 H (0.52-1.04) mg/dL Glucose 116 H (74-99) mg/dL POC Glucose (mg/dL) 259 H (70-110) mg/dL Assessment and Plan Assessment: Transient episode of visual disturbance in which the patient had tunnel vision, feeling lightheaded and dizzy lasting about 5 minutes: Unknown exact etiology rule out brain metastases vs leptomeningeal spread vs ?seizure. Her sugar was 219 during the episode History of recurrent episodes of visual disturbance with dizziness lighthea dedness and feeling vision is tunnel and she stated that with these episodes she has hypoglycemia Acute shortness of breath and felt related to mild fluid overload/congestive heart failure, acute bronchitis as well as possible E ectogenic pneumonitis Acute hyponatremia and is felt secondary due to SIADH--improving History of ovarian cancer diagnosed in 2008 metastases to the lungstatus post hysterectomy, multiple chemotherapy and had radiation therapy that has focal recently. Last chemotherapy was in February 2022. Diabetes mellitus Paroxysmal atrial fibrillation History of right-sided thoracentesis Staph aureus pneumonia History of malignant pericardial effusion status post pericardial window Plan: Routine EEG: Normal. There is no focal slowing, epileptiform discharges or seizure on the EEG. Patient was to hold off obtaining MRI of the brain. IF Patient continues to have these symptoms consider lumbar puncture to rule out her any meningeal metastasis Pulmonary, ID, oncology, radiation oncology nephrology on board. We'll defer the rest of the management to the primary and other specialists. The plan was discussed with the patient, her who is at bedside. If the patient decides to pursue with the MRI of the brain as an inpatient and it's completed the please notify neurology team. Otherwise no additional neurologic workup. We'll sign off. Please reconsult if needed. Time with Patient: Less than 30
[2022-11-20 16:48] LABS: Glucose,Whole Blood 165 mg/dL (70-110)
[2022-11-20 18:06] LABS: Anion Gap 15 mmol/L; Blood Urea Nitrogen 95 mg/dL (7-17); Calcium 8.5 mg/dL (8.4-10.2); Carbon Dioxide 20 mmol/L (22-30); Chloride 83 mmol/L (98-107); Glucose 138 mg/dL (74-99); Potassium 5.4 mmol/L (3.5-5.1)
[2022-11-20 18:12] LABS: African American GFR (CKD) 26 (>60 ml/min/1.73 sqM); Non-African American GFR(CKD) 22 (>60 ml/min/1.73 sqM)
[2022-11-20] MEDS: BUDESONIDE 1 MG/2 ML NEBU INHALATION SCH (18:16)
[2022-11-20] MEDS: FORMOTEROL FUMARATE 20 MCG/2 ML NEBU INHALATION SCH (18:16)
[2022-11-20 18:20] LABS: Sodium 118 mmol/L (137-145)
[2022-11-20] MEDS ORDERED: SODIUM CHLORIDE TAB 1 GM TAB PO STA (19:05)
[2022-11-20 19:53] LABS: Glucose,Whole Blood 162 mg/dL (70-110)
[2022-11-20] MEDS: SENNOSIDES-DOCUSATE SODIUM 1 EACH TAB PO SCH (21:11)
[2022-11-20] MEDS: INSULIN DETEMIR (LEVEMIR) 100 UNIT/ML SYR SQ SCH (21:11)
[2022-11-20] MEDS: ZYRTEC 10MG TABLET PO SCH (21:12)
[2022-11-21] MEDS: ALPRAZolam 0.25 MG TAB PO PRN ×3 (02:59→20:35)
[2022-11-21] MEDS: IPRATROPIUM-ALBUTEROL 3 ML NEB INHALATION SCH ×6 (03:01→23:32)
[2022-11-21] MEDS: HYDROcodone/APAP 5-325MG 1 EACH TAB PO PRN (04:04)
[2022-11-21] MEDS: FAMOTIDINE 20 MG TAB PO SCH (04:11)
[2022-11-21 05:51] LABS: Glucose,Whole Blood 113 mg/dL (70-110)
[2022-11-21] MEDS: INSULIN ASPART (NovoLOG) 100 UNIT/ML VIAL SQ SCH ×7 (06:27→20:06)
[2022-11-21] MEDS: MIDODRINE 5 MG TAB PO SCH ×3 (07:13→16:49)
[2022-11-21] MEDS: BUDESONIDE 1 MG/2 ML NEBU INHALATION SCH ×2 (09:13→19:37)
[2022-11-21] MEDS: FORMOTEROL FUMARATE 20 MCG/2 ML NEBU INHALATION SCH ×2 (09:13→19:37)
[2022-11-21] MEDS: HEPARIN SODIUM,PORCINE/PF 5,000 UNIT/0.5 ML SYRINGE SQ SCH ×2 (09:44→20:04)
[2022-11-21] MEDS: AMIODARONE 200 MG TAB PO SCH ×2 (09:45→20:07)
[2022-11-21] MEDS: SODIUM BICARBONATE TAB 650 MG TAB PO SCH ×2 (09:45→20:07)
[2022-11-21] MEDS: guaiFENesin-DM 100-10MG/5ML 10 ML CUP PO PRN ×2 (09:45→20:35)
[2022-11-21] MEDS: MEGESTROL 400 MG/10 ML CUP PO SCH (09:45)
[2022-11-21] MEDS: FLUCONAZOLE 150 MG TAB PO SCH (09:45)
[2022-11-21] MEDS: METOPROLOL TARTRATE 12.5 MG TAB PO SCH ×2 (09:45→20:05)
--- NOTE | 2022-11-21 09:45 | P.PN ---
Subjective Progress Note Date: 11/20/22 This is a 57-year-old female patient of Dr. Aguilar who presented with concerns of increased dyspnea. Patient reports that she was having improvement since previous admission with updraft and prednisone treatment but starts developing increased wheezing and shortness breath increasing over the past few days. patient has extensive medical history including ovarian cancer which was diagnosed 14 years ago and has been maintained on chemo therapy. Additional medical history includes previous episode of pericardial effusion with pericardial window. Chest x-ray showing cardiomegaly with mild pulmonary vascular congestion correlate with BMP for congestive heart failure. COPD changes. Chest CTA completed showing no evidence of pulmonary embolism U small bilateral pleural effusions him a new small pericardial effusion new pulmonary vascular congestion and cardiomegaly correlate with serum BNP. This time patient will be admitted patient's BREATHING treatments, IV Lasix, Solu-Medrol. Pulmonary cardiology and oncology services will be consulted. On 11/01/2022 patient was seen and examined on the telemetry floor she is alert and oriented 3 in no apparent distress she reports improvement in her shortness of breath otherwise she denies any complaints there is no fever or chills no headache or dizziness no chest pain no palpitation no nausea or vomiting no abdominal pain no diarrhea no blood in the stools no burning with urination no frequency or urgency and no hematuria On 11/02/2022 patient was seen and examined on the telemetry floor she is reporting improvement in her shortness of breath, otherwise she denies any complaints there is no fever or chills no headache or dizziness no chest pain no palpitation she has occasional cough no nausea or vomiting no abdominal pain no diarrhea no blood in the stools no burning with urination no frequency or urgency no hematuria. On 11/03/2022 patient is alert and oriented 3. Patient continued to show improvement in regards to breathing. Discussed case with pulmonary team patient will continue IV steroids no plans for bronchoscopy at this time. Patient denies chest pain. Patient denies nausea vomiting or diarrhea. Patient denies any urinary frequency. On 11/04/2022 patient was seen and examined on the medical floor, she is alert and oriented 3 in no apparent distress there is no fever or chills no headache or dizziness no chest pain no shortness of breath no cough no nausea or vomiting no abdominal pain no diarrhea and no urinary symptoms. At this time patient is being switched to oral prednisone and oral Lasix, no plans per pulmonary for bronchoscopy this time, patient has not been yet cleared for discharge, will continue to follow closely. 11/05/2022 patient is alert and oriented 3. Patient having increasing shortness of breath and crackles today. Patient has been transitioned to by mouth prednisone will discuss case with pulmonary services for possible bronchoscopy. Patient remains on Lasix. Her vital signs as 7.6, heart rate 98, respiratory rate 20, blood pressure 126/64 95% on 2 L On 11/06/2022 patient was seen and examined on the telemetry floor she is alert and oriented 3 in no apparent distress, she is reporting some improvement in her shortness of breath since yesterday she is still having occasional cough there is no fever or chills no headache or dizziness no chest pain no nausea or vomiting no abdominal pain no diarrhea no blood in the stools no burning with urination no frequency or urgency and no hematuria. Plan per pulmonary is to continue with current management at this time and to proceed with bronchoscopy on Tuesday. On 11/07/2022 patient is alert and oriented 3. Patient reports improvement with shortness of breath. Plans for bronchoscopy tomorrow and patient also had an episode of atrial flutter cardiology services have been consulted. Heart rate has improved. This time patient denies chest pain. Patient denies nausea vomiting or diarrhea. Patient denies any urinary burning or frequency. On 11/08/2022 patient was seen and examined on the medical floor she is alert and oriented 3 in no apparent distress there is no fever or chills no headache or dizziness no chest pain, she is still complaining of shortness of breath and cough no nausea or vomiting no abdominal pain no diarrhea and no urinary symptoms On 11/09/2022 patient was seen and examined on the medical floor she is alert and oriented 3 in no apparent distress, she is complaining of muscle cramps and pain otherwise she denies any complaints there is no fever or chills no headache or dizziness no chest pain, she is still complaining of shortness of breath and cough no nausea or vomiting no abdominal pain no diarrhea and no urinary symptoms. [place] was added for pain, consultation was added for nephrology regarding hyponatremia. On 11/10/2022 patient is alert and oriented 3. Patient having increased wheezing today. Per oncology arranging for possible inpatient palliative radiation to endobronchial bronchial lesions causing near-complete occlusion of the right upper lobe. Patient also being followed by nephrology services for hyponatremia sodium improving slightly to 122. at this time patient denies chest pain. Denies nausea vomiting or diarrhea. Patient denies any urinary burning or frequency. On 11/11/2022 patient is alert and oriented 3. Plans for palliative radiation today and tomorrow for endobronchial lesions. This time patient remains with audible wheezing and shortness of breath. Patient denies chest pain. Patient denies nausea vomiting or diarrhea. Patient denies any urinary burning or frequency. Sodium 126. Dr. Romano's group covering from 11/12/2022- 11/17/2022 On 11/17/2022 patient is alert and oriented 3. Patient has underwent pa lliative radiation. Apparently patient had episodes of tunnel vision and dizziness. Patient was evaluated by neurology services CT of the brain completed showing no acute process. Nephrology services were consulted and MRI and EEG has been ordered. Nephrology services continue to follow her hypo natremia. On 11/18/2022 patient was seen and examined on the medical floor she is alert and oriented 3 in no apparent distress there is no fever or chills no headache or dizziness no chest pain no shortness of breath no cough she has occasional nausea no vomiting no abdominal pain no diarrhea and no urinary symptoms. Patient is complaining of generalized pain, she is also complaining of oral th barone with difficulty swallowing. She has been refusing most of her meals, this was discussed in details with patient, at this time will add appetite stimulant Megace 400 mg suspension once daily. CODE STATUS was discussed again with patient and her , patient wants to be a full code at this time. On 11/19/2022 patient is alert and oriented 3. Patient to get last treatment of radiation today. Patient remains weak with shortness of breath. Patient denies chest pain. Patient's sodium slightly increased 121. Patient does report improvement with taking medication. On 2022 patient was seen and examined on the medical floor, she is alert and oriented 3 in no apparent distress she is complaining of generalized malaise and weakness otherwise no specific complaints sodium is down to 118 nephrology are following there is no fever or chills no headache or dizziness no chest pain no shortness of breath no cough no nausea or vomiting no abdominal pain no diarrhea and no urinary symptoms Objective - Vital Signs Vital signs: Vital Signs Temp 97.3 F L 11/20/22 04:55 Pulse 80 11/20/22 09:05 Resp 18 11/20/22 08:00 BP 95/53 11/20/22 08:00 Pulse Ox 95 11/20/22 08:49 FiO2 Intake & Output 11/19/22 11/20/22 11/20/22 18:59 06:59 18:59 Intake Total 790 200 Output Total 475 250 100 Balance 315 -50 -100 Weight 88.8 kg Intake: Oral 790 200 Output: Urine 475 250 100 Other: Voiding Method Toilet Toilet Toilet # Voids 1 - Exam In general patient is alert and oriented x 3 in no distress HEENT head normocephalic and atraumatic Neck is supple no JVD no goiter no lymphadenopathy no carotid bruit Chest examination is clear to auscultation no crackles no wheezing Cardiac exam reveals regular heart sounds S1 and S2 no gallops no murmurs Abdomen is soft nontender no organomegaly with normal bowel sounds Extremity exam reveals no edema no cyanosis or clubbing Neurological examination reveals no gross focal deficits - Labs CBC & Chem 7: 11/19/22 07:36 11/20/22 08:00 Labs: Abnormal Lab Results - Last 24 Hours (Table) 11/19/22 11/19/22 11/20/22 Range/Units 16:18 19:45 06:03 Sodium (137-145) mmol/L Potassium (3.5-5.1) mmol/L Chloride (98-107) mmol/L Carbon Dioxide (22-30) mmol/L BUN (7-17) mg/dL Creatinine (0.52-1.04) mg/dL Glucose (74-99) mg/dL POC Glucose (mg/dL) 158 H 164 H 127 H (70-110) mg/dL 11/20/22 11/20/22 Range/Units 08:00 11:32 Sodium 118 L* (137-145) mmol/L Potassium 5.8 H (3.5-5.1) mmol/L Chloride 87 L (98-107) mmol/L Carbon Dioxide 19 L (22-30) mmol/L BUN 90 H (7-17) mg/dL Creatinine 2.07 H (0.52-1.04) mg/dL Glucose 116 H (74-99) mg/dL POC Glucose (mg/dL) 259 H (70-110) mg/dL Assessment and Plan Assessment: 1. Acute on chronic hypoxic respiratory failure 2. Pericardial effusion on computed tomography scan of the chest 3. History of pericardial window 4. History of ovarian cancer with metastatic disease 5. Bronchospasms 6. History of oral thrush 7. Atrial flutter. Cardiology services consulted 8. Status post bronchoscopy on 11/08/2022 findings of new endobronchial lesions with near-complete occlusion of the right upper lobe 9. Hyponatremia per nephrology high suspicion for underlying SIADH. 10. Dizziness and tunnel vision. Neurology services were consulted and MRI EEG has been ordered 11. Positive sputum culture for staph aureus. Maintain on IV cefazolin Pulmonary cardiology service is consulted s/p bronchoscopy on 11/08/2022 radiation to endobronchial lesions on 11/11/2022 and 11/12/2022 MRI and EEG ordered per neurology Repeat labs ordered
[2022-11-21] MEDS: predniSONE 10 MG TAB PO SCH (09:46)
[2022-11-21] MEDS: BENZONATATE 100 MG CAP PO SCH ×3 (09:46→22:33)
[2022-11-21] MEDS: FLUTICASONE 50MCG/SPRAY NASAL 16GM EA NOSTRIL SCH ×2 (09:47→20:08)
--- NOTE | 2022-11-21 09:47 | P.PN ---
Subjective Progress Note Date: 11/21/22 This is a 57-year-old female patient of Dr. Aguilar who presented with concerns of increased dyspnea. Patient reports that she was having improvement since previous admission with updraft and prednisone treatment but starts developing increased wheezing and shortness breath increasing over the past few days. patient has extensive medical history including ovarian cancer which was diagnosed 14 years ago and has been maintained on chemo therapy. Additional medical history includes previous episode of pericardial effusion with pericardial window. Chest x-ray showing cardiomegaly with mild pulmonary vascular congestion correlate with BMP for congestive heart failure. COPD changes. Chest CTA completed showing no evidence of pulmonary embolism U small bilateral pleural effusions him a new small pericardial effusion new pulmonary vascular congestion and cardiomegaly correlate with serum BNP. This time patient will be admitted patient's BREATHING treatments, IV Lasix, Solu-Medrol. Pulmonary cardiology and oncology services will be consulted. On 11/01/2022 patient was seen and examined on the telemetry floor she is alert and oriented 3 in no apparent distress she reports improvement in her shortness of breath otherwise she denies any complaints there is no fever or chills no headache or dizziness no chest pain no palpitation no nausea or vomiting no abdominal pain no diarrhea no blood in the stools no burning with urination no frequency or urgency and no hematuria On 11/02/2022 patient was seen and examined on the telemetry floor she is reporting improvement in her shortness of breath, otherwise she denies any complaints there is no fever or chills no headache or dizziness no chest pain no palpitation she has occasional cough no nausea or vomiting no abdominal pain no diarrhea no blood in the stools no burning with urination no frequency or urgency no hematuria. On 11/03/2022 patient is alert and oriented 3. Patient continued to show improvement in regards to breathing. Discussed case with pulmonary team patient will continue IV steroids no plans for bronchoscopy at this time. Patient denies chest pain. Patient denies nausea vomiting or diarrhea. Patient denies any urinary frequency. On 11/04/2022 patient was seen and examined on the medical floor, she is alert and oriented 3 in no apparent distress there is no fever or chills no headache or dizziness no chest pain no shortness of breath no cough no nausea or vomiting no abdominal pain no diarrhea and no urinary symptoms. At this time patient is being switched to oral prednisone and oral Lasix, no plans per pulmonary for bronchoscopy this time, patient has not been yet cleared for discharge, will continue to follow closely. 11/05/2022 patient is alert and oriented 3. Patient having increasing shortness of breath and crackles today. Patient has been transitioned to by mouth prednisone will discuss case with pulmonary services for possible bronchoscopy. Patient remains on Lasix. Her vital signs as 7.6, heart rate 98, respiratory rate 20, blood pressure 126/64 95% on 2 L On 11/06/2022 patient was seen and examined on the telemetry floor she is alert and oriented 3 in no apparent distress, she is reporting some improvement in her shortness of breath since yesterday she is still having occasional cough there is no fever or chills no headache or dizziness no chest pain no nausea or vomiting no abdominal pain no diarrhea no blood in the stools no burning with urination no frequency or urgency and no hematuria. Plan per pulmonary is to continue with current management at this time and to proceed with bronchoscopy on Tuesday. On 11/07/2022 patient is alert and oriented 3. Patient reports improvement with shortness of breath. Plans for bronchoscopy tomorrow and patient also had an episode of atrial flutter cardiology services have been consulted. Heart rate has improved. This time patient denies chest pain. Patient denies nausea vomiting or diarrhea. Patient denies any urinary burning or frequency. On 11/08/2022 patient was seen and examined on the medical floor she is alert and oriented 3 in no apparent distress there is no fever or chills no headache or dizziness no chest pain, she is still complaining of shortness of breath and cough no nausea or vomiting no abdominal pain no diarrhea and no urinary symptoms On 11/09/2022 patient was seen and examined on the medical floor she is alert and oriented 3 in no apparent distress, she is complaining of muscle cramps and pain otherwise she denies any complaints there is no fever or chills no headache or dizziness no chest pain, she is still complaining of shortness of breath and cough no nausea or vomiting no abdominal pain no diarrhea and no urinary symptoms. [place] was added for pain, consultation was added for nephrology regarding hyponatremia. On 11/10/2022 patient is alert and oriented 3. Patient having increased wheezing today. Per oncology arranging for possible inpatient palliative radiation to endobronchial bronchial lesions causing near-complete occlusion of the right upper lobe. Patient also being followed by nephrology services for hyponatremia sodium improving slightly to 122. at this time patient denies chest pain. Denies nausea vomiting or diarrhea. Patient denies any urinary burning or frequency. On 11/11/2022 patient is alert and oriented 3. Plans for palliative radiation today and tomorrow for endobronchial lesions. This time patient remains with audible wheezing and shortness of breath. Patient denies chest pain. Patient denies nausea vomiting or diarrhea. Patient denies any urinary burning or frequency. Sodium 126. Dr. Romano's group covering from 11/12/2022- 11/17/2022 On 11/17/2022 patient is alert and oriented 3. Patient has underwent pa lliative radiation. Apparently patient had episodes of tunnel vision and dizziness. Patient was evaluated by neurology services CT of the brain completed showing no acute process. Nephrology services were consulted and MRI and EEG has been ordered. Nephrology services continue to follow her hypo natremia. On 11/18/2022 patient was seen and examined on the medical floor she is alert and oriented 3 in no apparent distress there is no fever or chills no headache or dizziness no chest pain no shortness of breath no cough she has occasional nausea no vomiting no abdominal pain no diarrhea and no urinary symptoms. Patient is complaining of generalized pain, she is also complaining of oral th barone with difficulty swallowing. She has been refusing most of her meals, this was discussed in details with patient, at this time will add appetite stimulant Megace 400 mg suspension once daily. CODE STATUS was discussed again with patient and her , patient wants to be a full code at this time. On 11/19/2022 patient is alert and oriented 3. Patient to get last treatment of radiation today. Patient remains weak with shortness of breath. Patient denies chest pain. Patient's sodium slightly increased 121. Patient does report improvement with taking medication. On 2022 patient was seen and examined on the medical floor, she is alert and oriented 3 in no apparent distress she is complaining of generalized malaise and weakness otherwise no specific complaints sodium is down to 118 nephrology are following there is no fever or chills no headache or dizziness no chest pain no shortness of breath no cough no nausea or vomiting no abdominal pain no diarrhea and no urinary symptoms On 11/21/2022 patient currently sitting up in chair alert and oriented at bedside. Discussed case with nephrology services. If sodium continues to be critically low patient will require transfer to ICU and 3%. Indwelling [place] catheter also ordered to monitor input and output. Objective - Vital Signs Vital signs: Vital Signs Temp 97.8 F 11/21/22 04:00 Pulse 86 11/21/22 09:41 Resp 22 11/21/22 04:00 BP 112/62 11/21/22 04:00 Pulse Ox 96 11/21/22 09:21 FiO2 Intake & Output 11/20/22 11/21/22 11/21/22 18:59 06:59 18:59 Intake Total 300 Output Total 100 550 Balance -100 -250 Intake: Oral 300 Output: Urine 100 550 Other: Voiding Method Toilet Toilet # Voids 1 - Exam In general patient is alert and oriented x 3 in no distress HEENT head normocephalic and atraumatic Neck is supple no JVD no goiter no lymphadenopathy no carotid bruit Chest examination is clear to auscultation no crackles no wheezing Cardiac exam reveals regular heart sounds S1 and S2 no gallops no murmurs Abdomen is soft nontender no organomegaly with normal bowel sounds Extremity exam reveals no edema no cyanosis or clubbing Neurological examination reveals no gross focal deficits - Labs CBC & Chem 7: 11/19/22 07:36 11/20/22 17:13 Labs: Abnormal Lab Results - Last 24 Hours (Table) 11/20/22 11/20/22 11/20/22 Range/Units 11:32 16:46 17:13 Sodium 118 L* (137-145) mmol/L Potassium 5.4 H (3.5-5.1) mmol/L Chloride 83 L (98-107) mmol/L Carbon Dioxide 20 L (22-30) mmol/L BUN 95 H (7-17) mg/dL Creatinine 2.38 H (0.52-1.04) mg/dL Glucose 138 H (74-99) mg/dL POC Glucose (mg/dL) 259 H 165 H (70-110) mg/dL 11/20/22 11/21/22 Range/Units 19:50 05:49 Sodium (137-145) mmol/L Potassium (3.5-5.1) mmol/L Chloride (98-107) mmol/L Carbon Dioxide (22-30) mmol/L BUN (7-17) mg/dL Creatinine (0.52-1.04) mg/dL Glucose (74-99) mg/dL POC Glucose (mg/dL) 162 H 113 H (70-110) mg/dL Assessment and Plan Assessment: 1. Acute on chronic hypoxic respiratory failure 2. Pericardial effusion on computed tomography scan of the chest 3. History of pericardial window 4. History of ovarian cancer with metastatic disease 5. Bronchospasms 6. History of oral thrush 7. Atrial flutter. Cardiology services consulted 8. Status post bronchoscopy on 11/08/2022 findings of new endobronchial lesions with near-complete occlusion of the right upper lobe 9. Hyponatremia per nephrology high suspicion for underlying SIADH. 10. Dizziness and tunnel vision. Neurology services were consulted and MRI EEG has been ordered 11. Positive sputum culture for staph aureus. Maintain on IV cefazolin Pulmonary cardiology service is consulted s/p bronchoscopy on 11/08/2022 radiation to endobronchial lesions on 11/11/2022 and 11/12/2022 MRI and EEG ordered per neurology Repeat labs ordered
[2022-11-21] MEDS: DEMECLOCYCLINE 150 MG TAB PO SCH (09:51)
--- NOTE | 2022-11-21 10:08 | P.PN ---
Subjective Patient is seen in follow-up for acute kidney injury and hyponatremia. Sodium level 118 yesterday evening and she was given another dose of samsca as well as salt tab. Oral intake remains poor. Has lower extremity edema. Denies vomiting or diarrhea. present at bedside. Vital signs are stable. General: No acute distress. HEENT: Head exam is unremarkable. LUNGS: No audible rhonchi or wheezes. HEART: Rate and Rhythm are regular. ABDOMEN: Nontender. EXTREMITITES: 2+ edema. Objective - Vital Signs Vital signs: Vital Signs Temp 97.8 F 11/21/22 04:00 Pulse 86 11/21/22 09:41 Resp 22 11/21/22 04:00 BP 112/62 11/21/22 04:00 Pulse Ox 96 11/21/22 09:21 FiO2 Intake & Output 11/20/22 11/21/22 11/21/22 18:59 06:59 18:59 Intake Total 300 Output Total 100 550 Balance -100 -250 Intake: Oral 300 Output: Urine 100 550 Other: Voiding Method Toilet Toilet # Voids 1 - Labs CBC & Chem 7: 11/19/22 07:36 11/20/22 17:13 Labs: Abnormal Lab Results - Last 24 Hours (Table) 11/20/22 11/20/22 11/20/22 Range/Units 11:32 16:46 17:13 Sodium 118 L* (137-145) mmol/L Potassium 5.4 H (3.5-5.1) mmol/L Chloride 83 L (98-107) mmol/L Carbon Dioxide 20 L (22-30) mmol/L BUN 95 H (7-17) mg/dL Creatinine 2.38 H (0.52-1.04) mg/dL Glucose 138 H (74-99) mg/dL POC Glucose (mg/dL) 259 H 165 H (70-110) mg/dL Ur Random Sodium (40-220) mmol/L 11/20/22 11/20/22 11/21/22 Range/Units 19:50 22:30 05:49 Sodium (137-145) mmol/L Potassium (3.5-5.1) mmol/L Chloride (98-107) mmol/L Carbon Dioxide (22-30) mmol/L BUN (7-17) mg/dL Creatinine (0.52-1.04) mg/dL Glucose (74-99) mg/dL POC Glucose (mg/dL) 162 H 113 H (70-110) mg/dL Ur Random Sodium <20 L (40-220) mmol/L Assessment and Plan Plan: Assessment: 1. Hyponatremia, hypervolemic. 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 Sodium level 118 yesterday evening. Urine osmolality 535. Repeat urine osmolality 323 and urine sodium less than 20. 2. Metastatic ovarian cancer. 3. Acute kidney injury secondary to ATN secondary to hypotension. Creatinine 2.38 as of yesterday. 4. Acute hypoxic respiratory failure. History of pericardial window and also underwent right thoracentesis with 950 cc drained this admission. 5. Hyperkalemia secondary to acute kidney injury and acidosis. Hemolyzed sa mple. Repeat 5.4. 6. A flutter. Now in sinus rhythm. Seen by cardiology. 7. Edema. 8. Metabolic acidosis secondary to acute kidney injury. On oral bicarbonate. Plan: Maintain fluid restriction. Add salt 1 g 3 times daily. Add Samsca 30 mg twice daily. Encouraged oral intake. Repeat BMP this evening. Follow-up morning labs. Follow-up TSH. If no improvement in sodium level, will need 3%. Prognosis guarded.
[2022-11-21] MEDS ORDERED: TOLVAPTAN 15 MG TABLET PO SCH (10:15)
[2022-11-21] MEDS ORDERED: SODIUM CHLORIDE TAB 1 GM TAB PO SCH (10:15)
--- NOTE | 2022-11-21 10:46 | P.PN ---
Subjective Progress Note Date: 11/21/22 Principal diagnosis: Ovarian cancer. Reevaluated today on 11/11/2022, patient is about the same, continues to have cough and shortness. Had a long discussion with Dr. Richey yesterday regarding case, and he is planning to radiation therapy. In the meantime he showed me the CT of the chest which was done prior, and the patient seems to be developing bilateral pleural effusions, right more so on the left, I would recommend an ultrasound of the chest today, and the fluid is large enough would proceed with a right-sided thoracentesis mostly for diagnostic and therapeutic purposes. WBC count today is 17.5 hemoglobin is 10.6 sodium is up to 126. BUN is 53 creatinine 1.84. Patient is on fluid restriction, she is also on tolvaptan and she remains on demeclocycline. Her hydrocortisone dose will be cut down to 50 mg every 8 hours Patient was reevaluated today on 11/12/2022, patient continues to have cough and shortness of breath, had radiation treatment yesterday, she had right-sided thoracentesis yesterday, and I drained about 1000 mL of serosanguineous pleural effusion most likely malignant unless for otherwise. Cytology is pending. The fluid is exudative in nature, has LDH of 231 and a relatively elevated protein of 3040. Cytology is pending. Looking at the chest x-ray from yesterday, the left-sided pleural effusion is rather small, and I'm not recommending thoracentesis on the left pleural effusion at this point. Seems to be much smaller than the right side. Not to mention, awaiting cytology from the right- sided pleural effusion and we'll address that accordingly. Patient was reevaluated today on 11/13/2022, patient is mostly complaining of generalized weakness, fatigue, shortness of breath upon any activity, and weakness more pronounced than ever. Hence I'm recommending a Cortrosyn stimulation test on this patient patient has been on stress doses of hydrocortisone all along. Sodium is better, her labs are improving, cytology from the pleural effusion is pending biopsy results from the endobronchial tumors are pending patient had radiation already by Dr. Richey. Her labs today showed WBC count of 15.3 hemoglobin 10.9 sodium is 130 renal profile is improving BUN is 48 creatinine 1.47 Reevaluated today on 11/14/2022, patient is on 2 L nasal cannula O2 sats is on the percent. Feeling a bit better, able to take deeper breaths today compared to the last few days. However her sodium is down to 125, being addressed by nephrology. Remained generally weak. WBC 12.4 hemoglobin 10.8. BUN is 45 creatinine down to 1.39. Progress note dated 11/15/2022. The patient is seen today in room 355. She is currently on 2 L of oxygen. She 's getting saline at keep vein open. This morning, pathology was still pending. This included pathology on the pleural fluid, as well as on the bronchoscopy, and biopsies. She feels very short of breath, very fatigued and weak. Physical therapy has been ordered for this patient. White count 13, hemoglobin 10.7, hematocrit 34, with a normal platelet count. Sodium 124, potassium 4.2, chlorides 88, CO2 24, BUN 50, creatinine 1.22. Bronchial washings were positive for staph aureus. Chest x-ray shows some patchy infiltrates, left lower lobe. The patient continues on Ancef. Progress note dated 11/16/2022. The patient is seen today in room 355. She is currently on oxygen, at 2 L. She's getting saline at KVO. The pathology reports, finally did come back, showing tumor in the lung, consistent with the patient's primary ovarian carcinoma. The pleural fluid cytology was negative. Results of the biopsy were shared with the patient. Currently, the patient's biggest issue is some mild shortness of breath fatigue, and cough. All are being addressed. Lab data included a white count of 10.7, hemoglobin 11.1, hematocrit 34.4, and a normal platelet count. Sodium is 127, potassium 5, chlorides 91, CO2 28, BUN 52, and creatinine 1.45. Bronchial washings from November 08 show evidence of Staphylococcus aureus. Chest x-ray from November 15 show some infiltrate, or atelectasis, at the left lung base. Progress note dated 11/17/2022. The patient is seen today in room 355. She's currently on oxygen at 2.5 L. Her major issue is shortness of breath on exertion, and overwhelming fatigue. The patient had a brain CT, which was negative. She has not been seen by medical oncology since November 11. They need to get in there and talk to her about the next steps. No new labs today other than a glucose of 187. Bronchial washings were positive for Staphylococcus aureus. Progress note dated 11/18/2022. The patient is again seen today in room 355. The patient continues on oxygen at 3 L. I've reduce down to 2 L. Her saturations are 100%. In my opinion, the patient has unrealistic, and her expectations, in terms of how she will do. We did change her Solu-Medrol down to prednisone by mouth. In addition, I stopped her Pulmicort and her formoterol updrafts, and started her on Symbicort, 2 puffs twice a day. The patient has had 3 of 5 radiation treatments to the right lung. She was seen by the oncology nurse practitioner yesterday. The patient apparently has an appointment to see the medical oncologist down the road. She's not receiving any IV fluids. The Ancef was discontinued. Progress note dated 11/19/2022. 57-year-old female with history of metastatic ovarian carcinoma, seen in room 355. I had a long conversation with the patient and the patient's , were in the room. I even got Patel Richey, her radiation oncologist on the phone, and discuss options for this patient in front of the patient. The patient was going to have her fifth and final radiation treatment today. He indicated that the radiation to the right lung, would not work right away, except some time. The patient was found have significant endobronchial disease by my partner, and bronchoscopy was performed. Her breathing remains a major issues, and she is very short of breath with any activity and maintained on 3 L of oxygen, but becomes very short of breath with any activity. Current labs include a white count 12.5, hemoglobin 11.2, hematocrit 34.7, and a platelet count of 171,000. Sodium 121, potassium 5, chlorides 89, CO2 19, anion gap 13, BUN 75, and creatinine 1.87. Bronchoscopy washings from November 08 were positive for staph aureus, and that was treated. Chest x-ray shows resolving left lower lobe infiltrate. Progress note dated 11/20/2022. The patient is seen today in room 355. She's currently on 4 L of oxygen. Her sodium today is 118. She's very short of breath with any activity. The patient would prefer Pulmicort and formoterol updrafts, as opposed to Symbicort. The changes made for her. She remains on all of the medications. She had her fifth and final radiation treatment yesterday. Sodium 118, potassium 5.8, chloride 87, CO2 19, anion gap 12, BUN 90, and creatinine 2.07. Progress note dated 11/21/2022. 57-year-old female with a history of metastatic ovarian carcinoma, seen today in room 355. The patient is currently on oxygen at 4 L. She's not receiving any IV fluids. Her sodium yesterday was 118. Clinically, she's about the same. She has completed all 5 radiation treatments, delivered by Dr. Patel Richey. This morning's labs are currently pending. The nurse tells me that the recreation leader may want to transfer her to the intensive care unit, for 3% saline infusion, should her sodium not improved. Currently, the only labs that is present is a glucose of 113. Objective - Vital Signs Vital signs: Vital Signs Temp 97.4 F L 11/21/22 08:00 Pulse 86 11/21/22 09:41 Resp 20 11/21/22 08:00 BP 108/74 11/21/22 08:00 Pulse Ox 96 11/21/22 09:21 FiO2 Intake & Output 11/20/22 11/21/22 11/21/22 18:59 06:59 18:59 Intake Total 300 Output Total 100 550 Balance -100 -250 Intake: Oral 300 Output: Urine 100 550 Other: Voiding Method Toilet Toilet Toilet # Voids 1 - Exam No acute distress, oriented 3. Currently on 4 L. No respiratory distress. No conversational dyspnea. HEENT examination is grossly unremarkable. Mucous membranes are moist. No oral lesions. Neck supple. Full range of motion. No adenopathy thyromegaly or neck vein distention. Cardiovascular examination reveals regular rhythm rate. S1-S2 normal. No S3 or S4. No discernible murmur noted. Heart rate 86 bpm. Lungs reveal scattered rhonchi, particularly in the right lung. Mild expiratory wheezes. No crackles. Saturations are excellent. Saturations are 98 %. Abdomen soft bowel sounds are heard. No masses or tenderness. Extremities are intact. No cyanosis clubbing or edema. Skin is without rash or lesion. Neurologic examination is brief but nonfocal. - Labs CBC & Chem 7: 11/19/22 07:36 11/20/22 17:13 Labs: Abnormal Lab Results - Last 24 Hours (Table) 11/20/22 11/20/22 11/20/22 Range/Units 11:32 16:46 17:13 Sodium 118 L* (137-145) mmol/L Potassium 5.4 H (3.5-5.1) mmol/L Chloride 83 L (98-107) mmol/L Carbon Dioxide 20 L (22-30) mmol/L BUN 95 H (7-17) mg/dL Creatinine 2.38 H (0.52-1.04) mg/dL Glucose 138 H (74-99) mg/dL POC Glucose (mg/dL) 259 H 165 H (70-110) mg/dL Ur Random Sodium (40-220) mmol/L 11/20/22 11/20/22 11/21/22 Range/Units 19:50 22:30 05:49 Sodium (137-145) mmol/L Potassium (3.5-5.1) mmol/L Chloride (98-107) mmol/L Carbon Dioxide (22-30) mmol/L BUN (7-17) mg/dL Creatinine (0.52-1.04) mg/dL Glucose (74-99) mg/dL POC Glucose (mg/dL) 162 H 113 H (70-110) mg/dL Ur Random Sodium <20 L (40-220) mmol/L Assessment and Plan Assessment: Acute shortness of breath, likely multifactorial, in part related to mild fluid overload/CHF, acute bronchitis with bronchospasm, as well as possible iatrogenic pneumonitis, related to Zejula. Metastatic ovarian carcinoma, with significant endobronchial disease in the right upper lobe, right middle lobe, and right lower lobe, status post bronchoscopy, with pathology positive for metastatic ovarian carcinoma,S/P 5 radiation treatments to the right lung. Paroxysmal atrial flutter. Status post right-sided thoracentesis, cytology negative. Hyponatremia, secondary to SIADH. Staph. aureus, bronchopneumonia/tracheobronchitis, currently on Ancef. Rule out active infection/bronchopneumonia, less likely. Metastatic ovarian carcinoma, diagnosed in 2008, with recurrence. The patient has diffuse adenopathy, both in the abdominal cavity and thoracic cavity. Metastatic pulmonary nodule. History of malignant pericardial effusion, status post pericardial window. Plan: Plan dated 10/31/2022. A pro-calcitonin level will be checked. Currently, the patient's on Pulmicort 1 mg, twice a day, mixed with formoterol, 20 g, twice a day. In addition, the patient's receiving updrafts with albuterol sulfate and ipratropium bromide. The patient is also on Solu-Medrol, 60 mg every 6 hours. Finally, the patient was placed on Rocephin, which was given to her in the emergency department. Labs, x-rays, medications are all reviewed. The patient is also receiving some Lasix, for possible mild fluid overload, although the N-terminal proBNP level was only 443. We will continue to follow the patient and make recommendations along the way. Her respiratory status appears to be relatively stable at this time. Plan dated 11/15/2022. The patient remains on 2 L of oxygen. She's received some radiation to the right chest area, with some improvement in her breathing. Her lung sounds are improved on the right side. The patient is on a fluid restriction for SIADH. She is also receiving treatment for same. Pathology reports, on the bronchoscopy, and cytology reports, on the pleural fluid, are pending. Physical therapy has been ordered for this patient. Labs, x-rays, medications are reviewed. Prognosis is certainly very guarded. Plan dated 11/16/2022. The patient remains on 2 L of oxygen. Saturations ranged from 95%, up to 98%. The patient complains primarily of fatigue, and cough. The cough likely reflects irritation from the endobronchial tumor. Pathology reports on the bronchoscopy and biopsy, were positive for metastatic ovarian carcinoma. Pleural fluid cytology was negative. The patient was seen by physical therapy yesterday. We will continue to follow and make recommendations along the way. She is to receive additional radiation. She remains on Ancef for her staph infection. Prognosis is very guarded. Plan dated 11/17/2022. The patient remains on oxygen at 2.5 L. Saturations are 100%. The oxygen can be titrated down. The patient's major complaint is that of fatigue. Labs, x- rays, and medications are reviewed. She has not been seen by medical oncology and a number of days, and they should get back in there to see her and discuss the next steps. The patient continues on Ancef. The patient's hydrocortisone was converted to prednisone 30 mg a day. Also, the patient's budesonide, and formoterol, are changed to Symbicort. Additional recommendations and suggestions are forthcoming. We will continue to follow. The prognosis is guarded. Plan dated 11/18/2022. The patient's oxygen was turned down from 3 L, down to 2 L. Saturations are in the mid 90s. The patient's Solu-Medrol was discontinued in favor of prednisone. In addition, the patient's Ancef was discontinued. Also, the Pulmicort solution, and formoterol solution, I changed to Symbicort. Additional recommendations and suggestions are forthcoming. Prognosis is guarded. The medical oncology nurse practitioner did see the patient yesterday. The plan is to hopefully get her well enough, to see her medical oncologist, Dr. Thibodeaux, so that he can recommend additional treatments. Her overall prognosis in my opinion is very poor. Plan dated 11/19/2022. The patient's overall prognosis in my opinion, remains poor. The patient's res piratory status has declined since she's been here. I had a long conversation with the patient and the patient's , along with her radiation oncologist, Dr. Patel Richey. He said he was going to talk to the patient, and the patient's regular medical oncologist, Dr. Thibodeaux, who works at [facility]. Not sure this point, what more we can do for this patient. Were hoping that the radiation treatments helps to alleviate the burden of the disease in the right lung. Hopefully, this will improve her breathing. The patient's overall prognosis is very poor though. In addition, she appears to have developed significant depression, and I feel like she might be giving up. Plan dated 11/20/2022. In my opinion, from the pulmonary perspective, not much more to add to this patient's treatment regimen. The patient completed her fourth radiation treatment yesterday. The patient's on all other appropriate bronchodilators steroids. The patient is profoundly short of breath and very weak with any activity. We've had long conversations with her, her , and the rest of her team. Labs, x-rays, and medications are reviewed. Prognosis is poor. Plan dated 11/21/2022. Currently, the patient is stable from the pulmonary standpoint. She apparently becomes very short of breath with any activity. Her sodium remains low, at 118. Today's labs are currently pending. The recreation leader may want to give the patient 3% saline should her sodium come back low again. Labs, x-rays, and medications are reviewed. No additional recommendations at this time. The patient has completed 5 radiation treatments to the right chest. Time with Patient: Less than 30
[2022-11-21 11:41] LABS: Glucose,Whole Blood 177 mg/dL (70-110)
[2022-11-21 12:35] LABS: African American GFR (CKD) 23 (>60 ml/min/1.73 sqM); Non-African American GFR(CKD) 20 (>60 ml/min/1.73 sqM)
[2022-11-21 12:39] LABS: Anion Gap 13 mmol/L; Calcium 8.8 mg/dL (8.4-10.2); Carbon Dioxide 22 mmol/L (22-30); Chloride 81 mmol/L (98-107); Glucose 150 mg/dL (74-99); Magnesium 2.3 mg/dL (1.6-2.3)
[2022-11-21 12:41] LABS: Blood Urea Nitrogen 106 mg/dL (7-17); Potassium 6.3 mmol/L (3.5-5.1); Sodium 116 mmol/L (137-145)
[2022-11-21] MEDS ORDERED: CALCIUM GLUCONATE IN NACL 1 GM in SALINE 1 100ML.BAG IVPB ONE (12:55)
[2022-11-21] MEDS ORDERED: SODIUM BICARB 8.4% 50 ML SYR (1 MEQ/ML) IV STA (12:56)
[2022-11-21] MEDS ORDERED: INSULIN REGULAR 100 UNIT/ML VIAL (IV) IV ONE (12:56)
[2022-11-21] MEDS ORDERED: DEXTROSE 50% SYRINGE 50 ML IVP STA (12:56)
[2022-11-21] MEDS ORDERED: SODIUM ZIRCONIUM CYCLOSILICATE 10 GM PACKET PO ONE (12:57)
[2022-11-21 13:59] LABS: T4, Free (Free Thyroxine) 1.02 ng/dL (0.78-2.19)
[2022-11-21 14:45] LABS: Glucose,Whole Blood 129 mg/dL (70-110)
--- NOTE | 2022-11-21 14:51 | P.PN ---
Subjective Progress Note Date: 11/21/22 Principal diagnosis: Metastatic ovarian cancer -No acute events overnight -Worsening hyponatremia with sodium 116, potassium 6.3 -Notes feeling significantly fatigued with persistent swelling of the lower extremities bilaterally -Feels breathing has slightly improved following completion of radiation therapy Objective - Vital Signs Vital signs: Vital Signs Temp 97.4 F L 11/21/22 08:00 Pulse 88 11/21/22 13:23 Resp 18 11/21/22 12:00 BP 102/69 11/21/22 12:00 Pulse Ox 93 L 11/21/22 12:00 FiO2 Intake & Output 11/20/22 11/21/22 11/21/22 18:59 06:59 18:59 Intake Total 300 Output Total 100 550 Balance -100 -250 Intake: Oral 300 Output: Urine 100 550 Other: Voiding Method Toilet Toilet Toilet # Voids 1 - Constitutional Constitutional Comment(s): Fatigued appearing General appearance: Present: no acute distress - EENT Eyes: Present: EOMI - Respiratory Respiratory: bilateral: wheezing - Cardiovascular Rhythm: regular - Peripheral edema leg Peripheral Edema: bilateral: 3+ ( anasarca of the lower extremities bilaterally to the knees) - Gastrointestinal General gastrointestinal: Present: soft. Absent: distended - Neurologic Neurologic: Present: CNII-XII intact. Absent: focal deficits - Psychiatric Psychiatric: Present: A&O x's 3 - Labs CBC & Chem 7: 11/19/22 07:36 11/21/22 11:26 Labs: Abnormal Lab Results - Last 24 Hours (Table) 11/20/22 11/20/22 11/20/22 Range/Units 16:46 17:13 19:50 Sodium 118 L* (137-145) mmol/L Potassium 5.4 H (3.5-5.1) mmol/L Chloride 83 L (98-107) mmol/L Carbon Dioxide 20 L (22-30) mmol/L BUN 95 H (7-17) mg/dL Creatinine 2.38 H (0.52-1.04) mg/dL Glucose 138 H (74-99) mg/dL POC Glucose (mg/dL) 165 H 162 H (70-110) mg/dL TSH (0.465-4.680) mIU/L Ur Random Sodium (40-220) mmol/L 11/20/22 11/21/22 11/21/22 Range/Units 22:30 05:49 11:26 Sodium 116 L* (137-145) mmol/L Potassium 6.3 H* (3.5-5.1) mmol/L Chloride 81 L (98-107) mmol/L Carbon Dioxide (22-30) mmol/L BUN 106 H* (7-17) mg/dL Creatinine 2.61 H (0.52-1.04) mg/dL Glucose 150 H (74-99) mg/dL POC Glucose (mg/dL) 113 H (70-110) mg/dL TSH 7.590 H (0.465-4.680) mIU/L Ur Random Sodium <20 L (40-220) mmol/L 11/21/22 Range/Units 11:38 Sodium (137-145) mmol/L Potassium (3.5-5.1) mmol/L Chloride (98-107) mmol/L Carbon Dioxide (22-30) mmol/L BUN (7-17) mg/dL Creatinine (0.52-1.04) mg/dL Glucose (74-99) mg/dL POC Glucose (mg/dL) 177 H (70-110) mg/dL TSH (0.465-4.680) mIU/L Ur Random Sodium (40-220) mmol/L Assessment and Plan (1) Primary malignant neoplasm of ovary with widespread metastatic disease Current Visit: Yes Status: Chronic Priority: High Code(s): C56.9 - MALIGNANT NEOPLASM OF UNSPECIFIED OVARY; C80.0 - DISSEMINATED MALIGNANT NEOPLASM, UNSPECIFIED SNOMED Code(s): 129787130 (2) Acute bronchospasm Current Visit: Yes Status: Acute Priority: High Code(s): J98.01 - ACUTE BRONCHOSPASM SNOMED Code(s): 51831876074754 (3) Macrocytic anemia Current Visit: Yes Status: Chronic Priority: Medium Code(s): D53.9 - NUTRITIONAL ANEMIA, UNSPECIFIED SNOMED Code(s): 05145751 (4) Hyponatremia Current Visit: Yes Status: Acute Code(s): E87.1 - HYPO-OSMOLALITY AND HYPONATREMIA SNOMED Code(s): 74179807 Plan: Hyponatremia -SIADH from malignancy -Nephrology has been following -Persistent despite demeclocycline, Samsca, and tolvaptan -Sodium 116 on today's labs -Plan to transfer to the ICU for 3% hypertonic saline Wheezing, dyspnea -Recurrent after completing prednisone taper from admit 10/07/2022 -S/p right sided thoracentesis with 950 mL removed and broncoscopy with lavage/washing and biopsy of RUL/RML. right pleural fluid negative for malignancy. Right upper lobe brushing compatible with non-small cell carcinoma. Right upper lobe and right middle lobe transbronchial biopsy positive for metastatic non-mucinous mullerian/ovarian carcinoma -Radiation Oncology evaluation. Has completed 5/5 fractions of palliative radiation to endobronchial lesions. Previously discussed with patient the intent of RT and that this is palliative for symptom management -Continues on prednisone, breathing treatments and inhalers -Will plan on 6 week slow taper for treatment of likely underlying pneumonitis 2/2 niraparib treatment, complicated by metastatic disease and possible pneumonia. -Pulmonology following with no new recommendations at this time Metastatic ovarian adenocarcinoma: -Follows with Dr. Thibodeaux and Dr. Cerda. -Completed 7 cycles of Doxil/carbo 03/06, maintenance Zejula 05/2022-09/10/22 -Pericardial fluid and pericardium biopsy obtained 08/05, were positive for metastatic ovarian carcinoma, PET showed metastatic disease in July. -Dr. Thibodeaux recommended optimizing her pulmonary function prior to proceeding with additional treatment -Case has been discussed with her primary gynecologic oncologist Dr. Thibodeaux and Dr. Richey of radiation oncology. Plan was to consider arranging transfer to [facility] if there was not any significant improvement in her breathing -We will likely need correction of hyponatremia prior to transfer to assess for systemic treatments and arrange for them appropriately Macrocytic anemia -Hgb stable on today's labs -Anemia likely due to Hx of chemotherapy -No nutritional deficiency anemias noted. TSH WNL -Transfuse if symptomatic or Hgb <7.
[2022-11-21] MEDS ORDERED: SODIUM CHLORIDE 3%(HYPERTONIC) 100 ML IV ONE (15:00)
[2022-11-21] MEDS ORDERED: SODIUM CHLORIDE 3%(HYPERTONIC) 500 ML IV ONE (15:00)
[2022-11-21 16:25] LABS: Anion Gap 15 mmol/L; Calcium 8.7 mg/dL (8.4-10.2); Carbon Dioxide 23 mmol/L (22-30); Chloride 82 mmol/L (98-107); Glucose 78 mg/dL (74-99); Potassium 5.4 mmol/L (3.5-5.1); Sodium 120 mmol/L (137-145)
[2022-11-21 16:31] LABS: African American GFR (CKD) 20 (>60 ml/min/1.73 sqM); Non-African American GFR(CKD) 17 (>60 ml/min/1.73 sqM)
[2022-11-21 16:36] LABS: Glucose,Whole Blood 102 mg/dL (70-110)
[2022-11-21 16:42] LABS: Blood Urea Nitrogen 104 mg/dL (7-17)
[2022-11-21] MEDS ORDERED: FUROSEMIDE 10 MG/ML 4 ML VIAL IV STA (19:25)
[2022-11-21 19:58] LABS: Glucose,Whole Blood 194 mg/dL (70-110)
[2022-11-21] MEDS: INSULIN DETEMIR (LEVEMIR) 100 UNIT/ML SYR SQ SCH (20:06)
[2022-11-21] MEDS: SENNOSIDES-DOCUSATE SODIUM 1 EACH TAB PO SCH (20:07)
[2022-11-21] MEDS: ZYRTEC 10MG TABLET PO SCH (20:07)
[2022-11-22] MEDS: IPRATROPIUM-ALBUTEROL 3 ML NEB INHALATION SCH ×5 (03:24→21:27)
[2022-11-22 04:14] LABS: Anisocytosis Slight; Basophils % (A) 0 %; Eosinophils # (A) 0.1 k/uL (0-0.7); Eosinophils % (A) 1 %; HCT 34.5 % (34.0-46.0); HGB 10.9 gm/dL (11.4-16.0); Hypochromasia Slight; Lymphocytes # (A) 0.6 k/uL (1.0-4.8); Lymphocytes % (A) 6 %; MCH 32.8 pg (25.0-35.0); MCHC 31.7 g/dL (31.0-37.0); MCV 103.5 fL (80.0-100.0); Macrocytosis Moderate; Mean Platelet Volume 7.8; Monocytes # (A) 0.4 k/uL (0-1.0); Monocytes % (A) 4 %; Neutrophils # (A) 9.2 k/uL (1.3-7.7); Neutrophils % (A) 90 %; Platelet Count 144 k/uL (150-450); RBC 3.33 m/uL (3.80-5.40); WBC 10.3 k/uL (3.8-10.6)
[2022-11-22 04:57] LABS: Albumin 3.2 g/dL (3.5-5.0)
[2022-11-22 04:59] LABS: ALT 99 U/L (4-34); AST 322 U/L (14-36); Alkaline Phosphatase 348 U/L (38-126); Anion Gap 13 mmol/L; Calcium 8.6 mg/dL (8.4-10.2); Carbon Dioxide 24 mmol/L (22-30); Chloride 85 mmol/L (98-107); Glucose 131 mg/dL (74-99); Magnesium 2.5 mg/dL (1.6-2.3); Potassium 5.6 mmol/L (3.5-5.1); Sodium 122 mmol/L (137-145); Total Bilirubin 1.8 mg/dL (0.2-1.3); Total Protein 5.7 g/dL (6.3-8.2)
[2022-11-22 05:05] LABS: African American GFR (CKD) 21 (>60 ml/min/1.73 sqM); Non-African American GFR(CKD) 19 (>60 ml/min/1.73 sqM)
[2022-11-22 05:40] LABS: Blood Urea Nitrogen 113 mg/dL (7-17)
[2022-11-22] MEDS ORDERED: SODIUM ZIRCONIUM CYCLOSILICATE 10 GM PACKET PO ONE ×2 (06:00→19:00)
[2022-11-22 06:47] LABS: Glucose,Whole Blood 161 mg/dL (70-110)
[2022-11-22] MEDS: INSULIN ASPART (NovoLOG) 100 UNIT/ML VIAL SQ SCH ×7 (06:58→21:35)
[2022-11-22] MEDS: MIDODRINE 5 MG TAB PO SCH ×3 (06:58→18:29)
--- NOTE | 2022-11-22 08:13 | XR ---
EXAMINATION TYPE: XR chest 1V portable DATE OF EXAM: 11/22/2022 5:36 AM COMPARISON: Chest radiographs from 11/19/2022 TECHNIQUE: XR chest 1V portable Frontal view of the chest. CLINICAL INDICATION:Female, 57 years old with history of Bilat pleural effusions; FINDINGS: Lungs/Pleura: No evidence of focal consolidation or pneumothorax. Blunting of the costophrenic angles is present. Pulmonary vascularity: Pulmonary vascular congestion. Heart/mediastinum: Cardiomediastinal silhouette is enlarged and stable. Musculoskeletal: No acute osseous pathology. IMPRESSION: Cardiomegaly, pulmonary vascular congestion and bilateral pleural effusions. Correlate with BNP for c ongestive heart failure.
--- NOTE | 2022-11-22 08:48 | P.PN ---
Subjective Progress Note Date: 11/22/22 On today's evaluation of 11/22/2022 on seeing the patient for a follow-up. Patient is known to me from previous evaluations. 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 The patient is currently on a combination of demeclocycline and talvaptan and the medication was discontinued and the patient was given hypertonic saline with a sodium level of 116 and follow-up sodium level instead 122. Meanwhile, the patient was also given lokelma 10 g for a potassium level of 5.6 and awaiting follow-up levels. BUN is at 113, creatinine is at 2.7 and the patient is a component of an acute kidney injury. Overall respiratory status remains unchanged. She remains on oxygen at 4 L pH she received radiation therapy to her chest by radiation oncology a total of 5 sessions. She remains on prednisone. She was cultured to have staph aureus in her sputum on an earlier bronchoscope and this was treated and currently she is on no antibacterial agents. She is taking oral Diflucan. She remains on prednisone 30 mg by mouth daily. She is also taken Levemir insulin 6 units at bedtime and 4 units with meals of [employer]. Oncology is on the case for now. Objective - Vital Signs Vital signs: Vital Signs Temp 97.3 F L 11/22/22 08:00 Pulse 75 11/22/22 08:00 Resp 24 11/22/22 08:00 BP 104/65 11/22/22 08:00 Pulse Ox 95 11/22/22 08:00 FiO2 Intake & Output 11/21/22 11/22/22 11/22/22 18:59 06:59 18:59 Intake Total 190 330 0 Output Total 320 375 35 Balance -130 -45 -35 Weight 95 kg Intake: IV 300 0 Sodium Chloride 3%( 300 0 Hypertonic) 500 ml @ 30 mls/hr IV .[id number] ONE Rx #:[id number] Intake, IV Titration 90 30 Amount Sodium Chloride 3%( 90 30 Hypertonic) 500 ml @ 30 mls/hr IV .[id number] ONE Rx #:[id number] Oral 100 Output: Urine 320 375 35 Other: Voiding Method Indwelling Catheter Indwelling Catheter Indwelling Catheter - Exam No acute distress, oriented 3. Currently on 3 L. No conversational dyspnea or use of accessory muscles. The patient is currently on room air oxygen HEENT examination is grossly unremarkable. Mucous membranes are moist. No oral lesions. Neck supple. Full range of motion. No adenopathy thyromegaly or neck vein distention. Cardiovascular examination reveals regular rhythm rate. S1-S2 normal. No S3 or S4. No discernible murmur noted. Lungs reveal scattered rhonchi. No wheezes or crackles. Breath sounds equal bilaterally. Crackles are appreciated in lung bases bilaterally Abdomen soft bowel sounds are heard. No masses or tenderness. Extremities are intact. No cyanosis or clubbing. Trace lower extremity edema. Skin is without rash or lesion. Neurologic examination is brief but nonfocal. - Labs CBC & Chem 7: 11/22/22 04:00 11/22/22 04:00 Labs: Abnormal Lab Results - Last 24 Hours (Table) 11/20/22 11/21/22 11/21/22 Range/Units 22:30 11:26 11:38 RBC (3.80-5.40) m/uL Hgb (11.4-16.0) gm/dL MCV (80.0-100.0) fL RDW (11.5-15.5) % Plt Count (150-450) k/uL Neutrophils # (1.3-7.7) k/uL Lymphocytes # (1.0-4.8) k/uL Sodium 116 L* (137-145) mmol/L Potassium 6.3 H* (3.5-5.1) mmol/L Chloride 81 L (98-107) mmol/L BUN 106 H* (7-17) mg/dL Creatinine 2.61 H (0.52-1.04) mg/dL Glucose 150 H (74-99) mg/dL POC Glucose (mg/dL) 177 H (70-110) mg/dL Magnesium (1.6-2.3) mg/dL Total Bilirubin (0.2-1.3) mg/dL AST (14-36) U/L ALT (4-34) U/L Alkaline Phosphatase (38-126) U/L Total Protein (6.3-8.2) g/dL Albumin (3.5-5.0) g/dL TSH 7.590 H (0.465-4.680) mIU/L Ur Random Sodium <20 L (40-220) mmol/L 11/21/22 11/21/22 11/21/22 Range/Units 14:43 15:53 18:47 RBC (3.80-5.40) m/uL Hgb (11.4-16.0) gm/dL MCV (80.0-100.0) fL RDW (11.5-15.5) % Plt Count (150-450) k/uL Neutrophils # (1.3-7.7) k/uL Lymphocytes # (1.0-4.8) k/uL Sodium 120 L 120 L (137-145) mmol/L Potassium 5.4 H (3.5-5.1) mmol/L Chloride 82 L (98-107) mmol/L BUN 104 H* (7-17) mg/dL Creatinine 2.94 H (0.52-1.04) mg/dL Glucose (74-99) mg/dL POC Glucose (mg/dL) 129 H (70-110) mg/dL Magnesium (1.6-2.3) mg/dL Total Bilirubin (0.2-1.3) mg/dL AST (14-36) U/L ALT (4-34) U/L Alkaline Phosphatase (38-126) U/L Total Protein (6.3-8.2) g/dL Albumin (3.5-5.0) g/dL TSH (0.465-4.680) mIU/L Ur Random Sodium (40-220) mmol/L 11/21/22 11/21/22 11/22/22 Range/Units 19:57 22:07 01:07 RBC (3.80-5.40) m/uL Hgb (11.4-16.0) gm/dL MCV (80.0-100.0) fL RDW (11.5-15.5) % Plt Count (150-450) k/uL Neutrophils # (1.3-7.7) k/uL Lymphocytes # (1.0-4.8) k/uL Sodium 121 L 121 L (137-145) mmol/L Potassium (3.5-5.1) mmol/L Chloride (98-107) mmol/L BUN (7-17) mg/dL Creatinine (0.52-1.04) mg/dL Glucose (74-99) mg/dL POC Glucose (mg/dL) 194 H (70-110) mg/dL Magnesium (1.6-2.3) mg/dL Total Bilirubin (0.2-1.3) mg/dL AST (14-36) U/L ALT (4-34) U/L Alkaline Phosphatase (38-126) U/L Total Protein (6.3-8.2) g/dL Albumin (3.5-5.0) g/dL TSH (0.465-4.680) mIU/L Ur Random Sodium (40-220) mmol/L 11/22/22 11/22/22 11/22/22 Range/Units 04:00 04:00 06:46 RBC 3.33 L (3.80-5.40) m/uL Hgb 10.9 L (11.4-16.0) gm/dL MCV 103.5 H (80.0-100.0) fL RDW 18.0 H (11.5-15.5) % Plt Count 144 L (150-450) k/uL Neutrophils # 9.2 H (1.3-7.7) k/uL Lymphocytes # 0.6 L (1.0-4.8) k/uL Sodium 122 L (137-145) mmol/L Potassium 5.6 H (3.5-5.1) mmol/L Chloride 85 L (98-107) mmol/L BUN 113 H* (7-17) mg/dL Creatinine 2.76 H (0.52-1.04) mg/dL Glucose 131 H (74-99) mg/dL POC Glucose (mg/dL) 161 H (70-110) mg/dL Magnesium 2.5 H (1.6-2.3) mg/dL Total Bilirubin 1.8 H (0.2-1.3) mg/dL AST 322 H (14-36) U/L ALT 99 H (4-34) U/L Alkaline Phosphatase 348 H (38-126) U/L Total Protein 5.7 L (6.3-8.2) g/dL Albumin 3.2 L (3.5-5.0) g/dL TSH (0.465-4.680) mIU/L Ur Random Sodium (40-220) mmol/L Assessment and Plan Plan: Acute shortness of breath, likely multifactorial, and the patient is post bronchoscopy revealing endobronchial metastases consistent with ovarian cancer. Endobronchial biopsy was done confirming the findings and the patient was started on radiation therapy and she was given a total of 5 sessions of palliative radiation therapy to her chest. Also, a right-sided thoracentesis was done on 11/11/2022 and the fluid was nonmalignant. She is currently on oral prednisone 30 mg by mouth daily. Chest x-ray findings of essentially stable. She is on 3 L of oxygen by nasal cannula. Acute hypoxic respiratory failure currently on 3 L of oxygen by nasal cannula Metastatic ovarian carcinoma, diagnosed in 2008, with recurrence. The patient has diffuse adenopathy, both in the abdominal cavity and thoracic cavity. The patient also has pulmonary metastases Metastatic pulmonary nodules. Pleural effusion, right-sided posterior [place] on 11/11/2022 History of malignant pericardial effusion, status post pericardial window. Atrial flutter with rapid ventricular response, converted to normal sinus rhythm, no anticoagulants Hyponatremia she has with hypertonic saline, most recent sodium level is up to 122. No neurologic symptoms for now. No altered mentation. 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 Plan: Plan ovarian cancer affecting lung parenchyma and endobronchial pulmonary metastases Continue with fluid restriction Hypertonic saline has been discontinued by nephrology Monitor sodium level Continue oral steroids Titrate FiO2 to maintain a saturation above 90% Continue Levemir insulin for blood sugar control She does have extensive edema lower extremities bilaterally. We'll place the patient on Lasix 40 mg IV every 12 hours. Monitor fluid balance Coordinated work with nephrology We'll continue to follow
[2022-11-22] MEDS: METOPROLOL TARTRATE 12.5 MG TAB PO SCH ×2 (09:06→21:37)
[2022-11-22] MEDS: FAMOTIDINE 20 MG TAB PO SCH (09:06)
[2022-11-22] MEDS: FLUCONAZOLE 150 MG TAB PO SCH (09:06)
[2022-11-22] MEDS: SODIUM BICARBONATE TAB 650 MG TAB PO SCH ×2 (09:06→21:37)
[2022-11-22] MEDS: predniSONE 10 MG TAB PO SCH (09:06)
[2022-11-22] MEDS: MEGESTROL 400 MG/10 ML CUP PO SCH (09:06)
[2022-11-22] MEDS: HEPARIN SODIUM,PORCINE/PF 5,000 UNIT/0.5 ML SYRINGE SQ SCH ×2 (09:06→21:35)
[2022-11-22] MEDS: AMIODARONE 200 MG TAB PO SCH ×2 (09:06→21:34)
[2022-11-22] MEDS: FLUTICASONE 50MCG/SPRAY NASAL 16GM EA NOSTRIL SCH ×2 (09:07→21:34)
[2022-11-22] MEDS: FORMOTEROL FUMARATE 20 MCG/2 ML NEBU INHALATION SCH ×2 (09:19→21:27)
[2022-11-22] MEDS: BUDESONIDE 1 MG/2 ML NEBU INHALATION SCH ×2 (09:19→21:27)
[2022-11-22] MEDS: FUROSEMIDE 10 MG/ML 4 ML VIAL IV SCH ×2 (09:31→21:35)
[2022-11-22] MEDS: DOCUSATE 100 MG CAP PO PRN (09:45)
[2022-11-22] MEDS: BENZONATATE 100 MG CAP PO SCH ×3 (09:45→21:37)
[2022-11-22] MEDS ORDERED: TOLVAPTAN 30 MG TABLET PO ONE (10:00)
[2022-11-22] MEDS ORDERED: TOLVAPTAN 15 MG TABLET PO ONE (10:00)
--- NOTE | 2022-11-22 10:09 | P.PN ---
Subjective Patient is seen in follow-up for acute kidney injury and hyponatremia. Sodium level 122 this morning. Oral intake remains poor. Has lower extremity edema. Denies vomiting or diarrhea. Vital signs are stable. General: No acute distress. HEENT: Head exam is unremarkable. LUNGS: No audible rhonchi or wheezes. HEART: Rate and Rhythm are regular. ABDOMEN: Nontender. EXTREMITITES: 2+ edema. Objective - Vital Signs Vital signs: Vital Signs Temp 97.3 F L 11/22/22 08:00 Pulse 70 11/22/22 09:42 Resp 16 11/22/22 09:00 BP 90/66 11/22/22 09:00 Pulse Ox 95 11/22/22 09:00 FiO2 Intake & Output 11/21/22 11/22/22 11/22/22 18:59 06:59 18:59 Intake Total 190 330 0 Output Total 320 375 70 Balance -130 -45 -70 Weight 95 kg Intake: IV 300 0 Sodium Chloride 3%( 300 0 Hypertonic) 500 ml @ 30 mls/hr IV .[id number] ONE Rx #:[id number] Intake, IV Titration 90 30 Amount Sodium Chloride 3%( 90 30 Hypertonic) 500 ml @ 30 mls/hr IV .[id number] ONE Rx #:[id number] Oral 100 Output: Urine 320 375 70 Other: Voiding Method Indwelling Catheter Indwelling Catheter Indwelling Catheter - Labs CBC & Chem 7: 11/22/22 04:00 11/22/22 04:00 Labs: Abnormal Lab Results - Last 24 Hours (Table) 11/21/22 11/21/22 11/21/22 Range/Units 11:26 11:38 14:43 RBC (3.80-5.40) m/uL Hgb (11.4-16.0) gm/dL MCV (80.0-100.0) fL RDW (11.5-15.5) % Plt Count (150-450) k/uL Neutrophils # (1.3-7.7) k/uL Lymphocytes # (1.0-4.8) k/uL Sodium 116 L* (137-145) mmol/L Potassium 6.3 H* (3.5-5.1) mmol/L Chloride 81 L (98-107) mmol/L BUN 106 H* (7-17) mg/dL Creatinine 2.61 H (0.52-1.04) mg/dL Glucose 150 H (74-99) mg/dL POC Glucose (mg/dL) 177 H 129 H (70-110) mg/dL Magnesium (1.6-2.3) mg/dL Total Bilirubin (0.2-1.3) mg/dL AST (14-36) U/L ALT (4-34) U/L Alkaline Phosphatase (38-126) U/L Total Protein (6.3-8.2) g/dL Albumin (3.5-5.0) g/dL TSH 7.590 H (0.465-4.680) mIU/L 11/21/22 11/21/22 11/21/22 Range/Units 15:53 18:47 19:57 RBC (3.80-5.40) m/uL Hgb (11.4-16.0) gm/dL MCV (80.0-100.0) fL RDW (11.5-15.5) % Plt Count (150-450) k/uL Neutrophils # (1.3-7.7) k/uL Lymphocytes # (1.0-4.8) k/uL Sodium 120 L 120 L (137-145) mmol/L Potassium 5.4 H (3.5-5.1) mmol/L Chloride 82 L (98-107) mmol/L BUN 104 H* (7-17) mg/dL Creatinine 2.94 H (0.52-1.04) mg/dL Glucose (74-99) mg/dL POC Glucose (mg/dL) 194 H (70-110) mg/dL Magnesium (1.6-2.3) mg/dL Total Bilirubin (0.2-1.3) mg/dL AST (14-36) U/L ALT (4-34) U/L Alkaline Phosphatase (38-126) U/L Total Protein (6.3-8.2) g/dL Albumin (3.5-5.0) g/dL TSH (0.465-4.680) mIU/L 11/21/22 11/22/22 11/22/22 Range/Units 22:07 01:07 04:00 RBC (3.80-5.40) m/uL Hgb (11.4-16.0) gm/dL MCV (80.0-100.0) fL RDW (11.5-15.5) % Plt Count (150-450) k/uL Neutrophils # (1.3-7.7) k/uL Lymphocytes # (1.0-4.8) k/uL Sodium 121 L 121 L 122 L (137-145) mmol/L Potassium 5.6 H (3.5-5.1) mmol/L Chloride 85 L (98-107) mmol/L BUN 113 H* (7-17) mg/dL Creatinine 2.76 H (0.52-1.04) mg/dL Glucose 131 H (74-99) mg/dL POC Glucose (mg/dL) (70-110) mg/dL Magnesium 2.5 H (1.6-2.3) mg/dL Total Bilirubin 1.8 H (0.2-1.3) mg/dL AST 322 H (14-36) U/L ALT 99 H (4-34) U/L Alkaline Phosphatase 348 H (38-126) U/L Total Protein 5.7 L (6.3-8.2) g/dL Albumin 3.2 L (3.5-5.0) g/dL TSH (0.465-4.680) mIU/L 11/22/22 11/22/22 Range/Units 04:00 06:46 RBC 3.33 L (3.80-5.40) m/uL Hgb 10.9 L (11.4-16.0) gm/dL MCV 103.5 H (80.0-100.0) fL RDW 18.0 H (11.5-15.5) % Plt Count 144 L (150-450) k/uL Neutrophils # 9.2 H (1.3-7.7) k/uL Lymphocytes # 0.6 L (1.0-4.8) k/uL Sodium (137-145) mmol/L Potassium (3.5-5.1) mmol/L Chloride (98-107) mmol/L BUN (7-17) mg/dL Creatinine (0.52-1.04) mg/dL Glucose (74-99) mg/dL POC Glucose (mg/dL) 161 H (70-110) mg/dL Magnesium (1.6-2.3) mg/dL Total Bilirubin (0.2-1.3) mg/dL AST (14-36) U/L ALT (4-34) U/L Alkaline Phosphatase (38-126) U/L Total Protein (6.3-8.2) g/dL Albumin (3.5-5.0) g/dL TSH (0.465-4.680) mIU/L Assessment and Plan Plan: Assessment: 1. Hyponatremia, hypervolemic. 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 Sodium level 122 this morning. Urine osmolality 535. Repeat urine osmolality 323 and urine sodium less than 20. TSH 7.5 and free T4 normal. Status post 3% saline overnight. Better. 2. Metastatic ovarian cancer. 3. Acute kidney injury secondary to ATN secondary to hypotension. Creatinine 2.38 as of yesterday. 4. Acute hypoxic respiratory failure. History of pericardial window and also underwent right thoracentesis with 950 cc drained this admission. 5. Hyperkalemia secondary to acute kidney injury and acidosis. Hemolyzed sample. Repeat 5.4. 6. A flutter. Now in sinus rhythm. Seen by cardiology. 7. Edema. 8. Metabolic acidosis secondary to acute kidney injury. On oral bicarbonate. 9. Hyperkalemia secondary to acute kidney injury. Plan: Maintain fluid restriction. Status post 3% last night. Lasix 40 mg IV twice daily added by ICU team this morning. Samsca 30 mg once now. Encouraged oral intake. Repeat BMP this afternoon. Lokelma 10 g once now. Prognosis guarded.
[2022-11-22] MEDS: guaiFENesin-DM 100-10MG/5ML 10 ML CUP PO PRN ×2 (10:27→22:45)
--- NOTE | 2022-11-22 11:17 | P.PN ---
Subjective Progress Note Date: 11/22/22 Principal diagnosis: metastatic ovarian cancer At today's visit patient is in the ICU due to hyponateremia. Pt reports improvement in breathing today. C/o persistent cough. Also complains of weakness and fatige, but improvement today from yesterday and was ambulate to bedside ch air with assistance. She continues on breathing treatments, inhalers and prednisone. Sodium 122 today, nephrology following. Objective - Vital Signs Vital signs: Vital Signs Temp 97.3 F L 11/22/22 08:00 Pulse 73 11/22/22 10:00 Resp 16 11/22/22 10:00 BP 93/61 11/22/22 10:00 Pulse Ox 95 11/22/22 10:00 FiO2 Intake & Output 11/21/22 11/22/22 11/22/22 18:59 06:59 18:59 Intake Total 190 330 0 Output Total 320 375 100 Balance -130 -45 -100 Weight 95 kg Intake: IV 300 0 Sodium Chloride 3%( 300 0 Hypertonic) 500 ml @ 30 mls/hr IV .[id number] ONE Rx #:[id number] Intake, IV Titration 90 30 Amount Sodium Chloride 3%( 90 30 Hypertonic) 500 ml @ 30 mls/hr IV .[id number] ONE Rx #:[id number] Oral 100 Output: Urine 320 375 100 Other: Voiding Method Indwelling Catheter Indwelling Catheter Indwelling Catheter - Constitutional General appearance: Present: average body habitus, no acute distress - EENT Eyes: Present: anicteric sclerae, EOMI ENT: Present: hearing grossly normal - Respiratory Respiratory: bilateral: wheezing - Cardiovascular Rhythm: regular Heart sounds: normal: S1, S2 Abnormal Heart Sounds: Absent: systolic murmur, diastolic murmur, rub, S3 Gallop, S4 Gallop, click, other - Peripheral edema leg Peripheral Edema: bilateral: 3+ - Integumentary Integumentary: Present: pale. Absent: cyanotic - Musculoskeletal Musculoskeletal Comment(s): grossly intact Musculoskeletal: Present: generalized weakness - Psychiatric Psychiatric: Present: A&O x's 3, appropriate affect, intact judgment & insight - Labs CBC & Chem 7: 11/22/22 04:00 11/22/22 04:00 Labs: Abnormal Lab Results - Last 24 Hours (Table) 11/21/22 11/21/22 11/21/22 Range/Units 11:26 11:38 14:43 RBC (3.80-5.40) m/uL Hgb (11.4-16.0) gm/dL MCV (80.0-100.0) fL RDW (11.5-15.5) % Plt Count (150-450) k/uL Neutrophils # (1.3-7.7) k/uL Lymphocytes # (1.0-4.8) k/uL Sodium 116 L* (137-145) mmol/L Potassium 6.3 H* (3.5-5.1) mmol/L Chloride 81 L (98-107) mmol/L BUN 106 H* (7-17) mg/dL Creatinine 2.61 H (0.52-1.04) mg/dL Glucose 150 H (74-99) mg/dL POC Glucose (mg/dL) 177 H 129 H (70-110) mg/dL Magnesium (1.6-2.3) mg/dL Total Bilirubin (0.2-1.3) mg/dL AST (14-36) U/L ALT (4-34) U/L Alkaline Phosphatase (38-126) U/L Total Protein (6.3-8.2) g/dL Albumin (3.5-5.0) g/dL TSH 7.590 H (0.465-4.680) mIU/L 11/21/22 11/21/22 11/21/22 Range/Units 15:53 18:47 19:57 RBC (3.80-5.40) m/uL Hgb (11.4-16.0) gm/dL MCV (80.0-100.0) fL RDW (11.5-15.5) % Plt Count (150-450) k/uL Neutrophils # (1.3-7.7) k/uL Lymphocytes # (1.0-4.8) k/uL Sodium 120 L 120 L (137-145) mmol/L Potassium 5.4 H (3.5-5.1) mmol/L Chloride 82 L (98-107) mmol/L BUN 104 H* (7-17) mg/dL Creatinine 2.94 H (0.52-1.04) mg/dL Glucose (74-99) mg/dL POC Glucose (mg/dL) 194 H (70-110) mg/dL Magnesium (1.6-2.3) mg/dL Total Bilirubin (0.2-1.3) mg/dL AST (14-36) U/L ALT (4-34) U/L Alkaline Phosphatase (38-126) U/L Total Protein (6.3-8.2) g/dL Albumin (3.5-5.0) g/dL TSH (0.465-4.680) mIU/L 11/21/22 11/22/22 11/22/22 Range/Units 22:07 01:07 04:00 RBC (3.80-5.40) m/uL Hgb (11.4-16.0) gm/dL MCV (80.0-100.0) fL RDW (11.5-15.5) % Plt Count (150-450) k/uL Neutrophils # (1.3-7.7) k/uL Lymphocytes # (1.0-4.8) k/uL Sodium 121 L 121 L 122 L (137-145) mmol/L Potassium 5.6 H (3.5-5.1) mmol/L Chloride 85 L (98-107) mmol/L BUN 113 H* (7-17) mg/dL Creatinine 2.76 H (0.52-1.04) mg/dL Glucose 131 H (74-99) mg/dL POC Glucose (mg/dL) (70-110) mg/dL Magnesium 2.5 H (1.6-2.3) mg/dL Total Bilirubin 1.8 H (0.2-1.3) mg/dL AST 322 H (14-36) U/L ALT 99 H (4-34) U/L Alkaline Phosphatase 348 H (38-126) U/L Total Protein 5.7 L (6.3-8.2) g/dL Albumin 3.2 L (3.5-5.0) g/dL TSH (0.465-4.680) mIU/L 11/22/22 11/22/22 Range/Units 04:00 06:46 RBC 3.33 L (3.80-5.40) m/uL Hgb 10.9 L (11.4-16.0) gm/dL MCV 103.5 H (80.0-100.0) fL RDW 18.0 H (11.5-15.5) % Plt Count 144 L (150-450) k/uL Neutrophils # 9.2 H (1.3-7.7) k/uL Lymphocytes # 0.6 L (1.0-4.8) k/uL Sodium (137-145) mmol/L Potassium (3.5-5.1) mmol/L Chloride (98-107) mmol/L BUN (7-17) mg/dL Creatinine (0.52-1.04) mg/dL Glucose (74-99) mg/dL POC Glucose (mg/dL) 161 H (70-110) mg/dL Magnesium (1.6-2.3) mg/dL Total Bilirubin (0.2-1.3) mg/dL AST (14-36) U/L ALT (4-34) U/L Alkaline Phosphatase (38-126) U/L Total Protein (6.3-8.2) g/dL Albumin (3.5-5.0) g/dL TSH (0.465-4.680) mIU/L Assessment and Plan (1) Acute bronchospasm Current Visit: Yes Status: Acute Priority: High Code(s): J98.01 - ACUTE BRONCHOSPASM SNOMED Code(s): 14340693940311 (2) Primary malignant neoplasm of ovary with widespread metastatic disease Current Visit: Yes Status: Chronic Priority: High Code(s): C56.9 - MALIGNANT NEOPLASM OF UNSPECIFIED OVARY; C80.0 - DISSEMINATED MALIGNANT NEOPLASM, UNSPECIFIED SNOMED Code(s): 007924941 (3) Macrocytic anemia Current Visit: Yes Status: Chronic Priority: Medium Code(s): D53.9 - NUTRITIONAL ANEMIA, UNSPECIFIED SNOMED Code(s): 00047255 Plan: Hyponatremia -SIADH from malignancy -Nephrology has been following -Persistent despite Samsca, lokelma and fluid restrictions -Sodium improving, 122 on today's labs -S/p 3% hypertonic saline Wheezing, dyspnea -Recurrent after completing prednisone taper from admit 10/07/2022 -S/p right sided thoracentesis with 950 mL removed and broncoscopy with lavage/washing and biopsy of RUL/RML. right pleural fluid negative for malignancy. Right upper lobe brushing compatible with non-small cell carcinoma. Right upper lobe and right middle lobe transbronchial biopsy positive for metastatic non-mucinous mullerian/ovarian carcinoma -Radiation Oncology evaluation. Has completed 5/5 fractions of palliative radiation to endobronchial lesions. -Case has been discussed with her primary gynecologic oncologist Dr. Thibodeaux and Dr. Richey of radiation oncology. Plan was to consider arranging transfer to [facility] if there was not any significant improvement in her breathing -We will likely need correction of hyponatremia prior to transfer to assess for systemic treatments and arrange for them appropriately -Continues on prednisone, breathing treatments and inhalers -Plan for 6 week slow taper for treatment of likely underlying pneumonitis 2/2 niraparib treatment, complicated by metastatic disease -pulmonology following Metastatic ovarian adenocarcinoma: -Follows with Dr. Thibodeaux and Dr. Cerda. -Completed 7 cycles of Doxil/carbo 03/06, maintenance Zejula 05/2022-09/10/22 -Pericardial fluid and pericardium biopsy obtained 08/05, were positive for metastatic ovarian carcinoma, PET showed metastatic disease in July. -Dr. Thibodeaux recommended optimizing her pulmonary function prior to proceeding with additional treatment -F/U with Dr. Thibodeaux was missed due to hospitalization, pt will reschedule upon discharge. Macrocytic anemia -Hgb near baseline, stable 10.9 -Anemia likely due to Hx of chemotherapy -No nutritional deficiency anemias noted. TSH WNL -Transfuse if symptomatic or Hgb <7.
[2022-11-22 12:02] LABS: Glucose,Whole Blood 187 mg/dL (70-110)
[2022-11-22 12:28] LABS: Anion Gap 13 mmol/L; Calcium 8.3 mg/dL (8.4-10.2); Carbon Dioxide 23 mmol/L (22-30); Chloride 86 mmol/L (98-107); Glucose 174 mg/dL (74-99); Potassium 5.5 mmol/L (3.5-5.1); Sodium 122 mmol/L (137-145)
[2022-11-22 12:33] LABS: African American GFR (CKD) 19 (>60 ml/min/1.73 sqM); Non-African American GFR(CKD) 17 (>60 ml/min/1.73 sqM)
[2022-11-22 12:35] LABS: Blood Urea Nitrogen 116 mg/dL (7-17)
[2022-11-22] MEDS: IPRATROPIUM-ALBUTEROL 3 ML NEB INHALATION PRN (14:12)
[2022-11-22 16:36] LABS: INR 1.1 (<1.2); Partial Thromboplastin Time 22.2 sec (22.0-30.0); Potassium 5.7 mmol/L (3.5-5.1); Prothrombin Time 11.4 sec (9.0-12.0)
[2022-11-22 16:37] LABS: Anion Gap 12 mmol/L; Calcium 8.5 mg/dL (8.4-10.2); Carbon Dioxide 23 mmol/L (22-30); Chloride 86 mmol/L (98-107); Glucose 185 mg/dL (74-99); Sodium 121 mmol/L (137-145)
[2022-11-22 16:43] LABS: African American GFR (CKD) 20 (>60 ml/min/1.73 sqM); Non-African American GFR(CKD) 17 (>60 ml/min/1.73 sqM)
[2022-11-22 16:50] LABS: Glucose,Whole Blood 202 mg/dL (70-110)
[2022-11-22 17:04] LABS: Blood Urea Nitrogen 118 mg/dL (7-17)
[2022-11-22] MEDS: SODIUM CHLORIDE 3%(HYPERTONIC) 500 ML IV ONE (18:52)
[2022-11-22 20:27] LABS: Glucose,Whole Blood 156 mg/dL (70-110)
[2022-11-22] MEDS: ZYRTEC 10MG TABLET PO SCH (21:35)
[2022-11-22] MEDS: INSULIN DETEMIR (LEVEMIR) 100 UNIT/ML SYR SQ SCH (21:36)
[2022-11-22] MEDS: SENNOSIDES-DOCUSATE SODIUM 1 EACH TAB PO SCH (21:37)
[2022-11-22] MEDS: ALPRAZolam 0.25 MG TAB PO PRN (22:11)
[2022-11-23] MEDS: IPRATROPIUM-ALBUTEROL 3 ML NEB INHALATION SCH ×7 (00:19→23:50)
[2022-11-23 04:39] LABS: Anisocytosis Slight; Basophils % (A) 0 %; Eosinophils # (A) 0.1 k/uL (0-0.7); Eosinophils % (A) 1 %; HCT 33.7 % (34.0-46.0); HGB 11.2 gm/dL (11.4-16.0); Lymphocytes # (A) 0.4 k/uL (1.0-4.8); Lymphocytes % (A) 4 %; MCHC 33.2 g/dL (31.0-37.0); MCV 99.6 fL (80.0-100.0); Macrocytosis Slight; Monocytes # (A) 0.4 k/uL (0-1.0); Monocytes % (A) 4 %; Neutrophils # (A) 9.3 k/uL (1.3-7.7); Neutrophils % (A) 90 %; Platelet Count 104 k/uL (150-450); RBC 3.38 m/uL (3.80-5.40); RDW 18.7 % (11.5-15.5); WBC 10.4 k/uL (3.8-10.6)
[2022-11-23 06:17] LABS: Anion Gap 12 mmol/L; Calcium 8.5 mg/dL (8.4-10.2); Carbon Dioxide 20 mmol/L (22-30); Chloride 92 mmol/L (98-107); Glucose 125 mg/dL (74-99); Sodium 124 mmol/L (137-145)
[2022-11-23 06:55] LABS: African American GFR (CKD) 23 (>60 ml/min/1.73 sqM); Non-African American GFR(CKD) 20 (>60 ml/min/1.73 sqM)
[2022-11-23 06:56] LABS: Blood Urea Nitrogen 131 mg/dL (7-17)
[2022-11-23] MEDS: INSULIN ASPART (NovoLOG) 100 UNIT/ML VIAL SQ SCH ×7 (06:56→20:55)
[2022-11-23 06:57] LABS: Glucose,Whole Blood 139 mg/dL (70-110)
[2022-11-23] MEDS: MIDODRINE 5 MG TAB PO SCH ×3 (07:06→16:39)
[2022-11-23] MEDS ORDERED: TOLVAPTAN 15 MG TABLET PO ONE (07:30)
[2022-11-23] MEDS ORDERED: SODIUM ZIRCONIUM CYCLOSILICATE 10 GM PACKET PO ONE (07:30)
--- NOTE | 2022-11-23 08:09 | XR ---
EXAMINATION TYPE: XR chest 1V portable DATE OF EXAM: 11/23/2022 3:59 AM COMPARISON: Chest radiographs from 11/22/2022. TECHNIQUE: XR chest 1V portable Frontal view of the chest. CLINICAL INDICATION:Female, 57 years old with history of Bilat pleural effusions; FINDINGS: Lungs/Pleura: No evidence of focal consolidation or pneumothorax. Blunting of the costophrenic angles is present. Pulmonary vascularity: Unremarkable. Heart/mediastinum: Cardiomediastinal silhouette is enlarged and stable. Musculoskeletal: No acute osseous pathology. IMPRESSION: 1. Cardiomegaly, and bilateral pleural effusions. Correlate with BNP for congestive heart failure. 2. COPD changes.
[2022-11-23] MEDS: BUDESONIDE 1 MG/2 ML NEBU INHALATION SCH ×2 (08:18→19:50)
[2022-11-23] MEDS: FUROSEMIDE 10 MG/ML 4 ML VIAL IV SCH ×2 (08:19→20:24)
[2022-11-23] MEDS: FORMOTEROL FUMARATE 20 MCG/2 ML NEBU INHALATION SCH ×2 (08:19→19:50)
[2022-11-23] MEDS: predniSONE 10 MG TAB PO SCH (08:19)
[2022-11-23] MEDS: SODIUM BICARBONATE TAB 650 MG TAB PO SCH ×2 (08:19→20:24)
[2022-11-23] MEDS: FLUCONAZOLE 150 MG TAB PO SCH (08:19)
[2022-11-23] MEDS: HEPARIN SODIUM,PORCINE/PF 5,000 UNIT/0.5 ML SYRINGE SQ SCH ×2 (08:19→20:23)
[2022-11-23] MEDS: FLUTICASONE 50MCG/SPRAY NASAL 16GM EA NOSTRIL SCH ×2 (08:20→21:20)
[2022-11-23] MEDS: AMIODARONE 200 MG TAB PO SCH ×2 (08:20→20:24)
[2022-11-23] MEDS: METOPROLOL TARTRATE 12.5 MG TAB PO SCH ×2 (08:20→20:24)
[2022-11-23] MEDS: BENZONATATE 100 MG CAP PO SCH ×3 (08:20→21:19)
[2022-11-23] MEDS: FAMOTIDINE 20 MG TAB PO SCH (08:20)
[2022-11-23] MEDS: MEGESTROL 400 MG/10 ML CUP PO SCH (08:21)
--- NOTE | 2022-11-23 09:10 | P.PN ---
Subjective Progress Note Date: 11/23/22 On today's evaluation of 11/22/2022 on seeing the patient for a follow-up. Patient is known to me from previous evaluations. 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 Box Sorter on the case. The patient is currently on a combination of demeclocycline and talvaptan and the medication was discontinued and the patient was given hypertonic saline with a sodium level of 116 and follow-up sodium level instead 122. Meanwhile, the patient was also given lokelma 10 g for a potassium level of 5.6 and awaiting follow-up levels. BUN is at 113, creatinine is at 2.7 and the patient is a component of an acute kidney injury. Overall respiratory status remains unchanged. She remains on oxygen at 4 L pH she received radiation therapy to her chest by radiation oncology a total of 5 sessions. She remains on prednisone. She was cultured to have staph aureus in her sputum on an earlier bronchoscope and this was treated and currently she is on no antibacterial agents. She is taking oral Diflucan. She remains on prednisone 30 mg by mouth daily. She is also taken Levemir insulin 6 units at bedtime and 4 units with meals of NovoStratavia. Oncology is on the case for now. 11/23/2022, I'm seeing the patient for a follow-up. Condition is essentially the same in terms of breathing. Short of breath, oxygen dependent, has a congested cough, unable to bring up much sputum and it is essentially related to her extensive pulmonary metastases. At the same time, the patient has persi stent hyponatremia secondary to SIADH. The morning sodium level is at 124. Hypertonic saline was started again at the rate of 30 mL an hour, 3% saline. Potassium levels at 6. The BUN is 131 with a creatinine of 2.6. The patient is on IV Lasix. The fluid balance is -3 on 55 mL over the past 24 hours and urine output is adequate for now. The ribs was at 10.4 with a hemoglobin 11.2 and a platelet count of 104. The calcium level is at 8.5. The serum albumin level was at 3.2 from yesterday. The repeat chest x-ray from today shows cardiomegaly, but the pleural effusions and the patient is on oxygen at 4 L nasal cannula with a pulse ox of 97%. She's getting progressively more discouraged and distressed and frustrated. She wants to still be a full code. Nephrology consider TPN on her. The final decision has not been done as the patient is not meeting her caloric requirements and her oral intake is quite diminished. Not a candidate for chemotherapy. He received palliative therapy with radiation to her chest. Objective - Vital Signs Vital signs: Vital Signs Temp 96.6 F L 11/23/22 08:00 Pulse 80 11/23/22 08:46 Resp 13 11/23/22 08:00 BP 83/53 11/23/22 08:00 Pulse Ox 97 11/23/22 08:22 FiO2 Intake & Output 11/22/22 11/23/22 11/23/22 18:59 06:59 18:59 Intake Total 0 570 Output Total 390 535 100 Balance -390 35 -100 Weight 95 kg Intake: IV 0 330 Sodium Chloride 3%( 0 330 Hypertonic) 500 ml @ 30 mls/hr IV .[id number] ONE Rx #:[id number] Oral 240 Output: Urine 390 535 100 Other: Voiding Method Indwelling Catheter Indwelling Catheter Indwelling Catheter - Exam No acute distress, oriented 3. Currently on 3 L. No conversational dyspnea or use of accessory muscles. The patient is currently on room air oxygen HEENT examination is grossly unremarkable. Mucous membranes are moist. No oral lesions. Neck supple. Full range of motion. No adenopathy thyromegaly or neck vein distention. Cardiovascular examination reveals regular rhythm rate. S1-S2 normal. No S3 or S4. No discernible murmur noted. Lungs reveal scattered rhonchi. No wheezes or crackles. Breath sounds equal bilaterally. Crackles are appreciated in lung bases bilaterally Abdomen soft bowel sounds are heard. No masses or tenderness. Extremities are intact. No cyanosis or clubbing. Trace lower extremity edema. Skin is without rash or lesion. Neurologic examination is brief but nonfocal. - Labs CBC & Chem 7: 11/23/22 04:04 11/23/22 05:53 Labs: Abnormal Lab Results - Last 24 Hours (Table) 11/22/22 11/22/22 11/22/22 Range/Units 11:55 12:00 15:56 RBC (3.80-5.40) m/uL Hgb (11.4-16.0) gm/dL Hct (34.0-46.0) % RDW (11.5-15.5) % Plt Count (150-450) k/uL Neutrophils # (1.3-7.7) k/uL Lymphocytes # (1.0-4.8) k/uL Sodium 122 L 121 L (137-145) mmol/L Potassium 5.5 H 5.7 H (3.5-5.1) mmol/L Chloride 86 L 86 L (98-107) mmol/L Carbon Dioxide (22-30) mmol/L BUN 116 H* 118 H* (7-17) mg/dL Creatinine 3.00 H 2.97 H (0.52-1.04) mg/dL Glucose 174 H 185 H (74-99) mg/dL POC Glucose (mg/dL) 187 H (70-110) mg/dL Calcium 8.3 L (8.4-10.2) mg/dL 11/22/22 11/22/22 11/22/22 Range/Units 16:48 20:25 21:21 RBC (3.80-5.40) m/uL Hgb (11.4-16.0) gm/dL Hct (34.0-46.0) % RDW (11.5-15.5) % Plt Count (150-450) k/uL Neutrophils # (1.3-7.7) k/uL Lymphocytes # (1.0-4.8) k/uL Sodium 123 L (137-145) mmol/L Potassium (3.5-5.1) mmol/L Chloride (98-107) mmol/L Carbon Dioxide (22-30) mmol/L BUN (7-17) mg/dL Creatinine (0.52-1.04) mg/dL Glucose (74-99) mg/dL POC Glucose (mg/dL) 202 H 156 H (70-110) mg/dL Calcium (8.4-10.2) mg/dL 11/23/22 11/23/22 11/23/22 Range/Units 01:13 04:04 05:53 RBC 3.38 L (3.80-5.40) m/uL Hgb 11.2 L (11.4-16.0) gm/dL Hct 33.7 L (34.0-46.0) % RDW 18.7 H (11.5-15.5) % Plt Count 104 L (150-450) k/uL Neutrophils # 9.3 H (1.3-7.7) k/uL Lymphocytes # 0.4 L (1.0-4.8) k/uL Sodium 124 L 124 L (137-145) mmol/L Potassium 6.0 H (3.5-5.1) mmol/L Chloride 92 L (98-107) mmol/L Carbon Dioxide 20 L (22-30) mmol/L BUN 131 H* (7-17) mg/dL Creatinine 2.63 H (0.52-1.04) mg/dL Glucose 125 H (74-99) mg/dL POC Glucose (mg/dL) (70-110) mg/dL Calcium (8.4-10.2) mg/dL 11/23/22 Range/Units 06:55 RBC (3.80-5.40) m/uL Hgb (11.4-16.0) gm/dL Hct (34.0-46.0) % RDW (11.5-15.5) % Plt Count (150-450) k/uL Neutrophils # (1.3-7.7) k/uL Lymphocytes # (1.0-4.8) k/uL Sodium (137-145) mmol/L Potassium (3.5-5.1) mmol/L Chloride (98-107) mmol/L Carbon Dioxide (22-30) mmol/L BUN (7-17) mg/dL Creatinine (0.52-1.04) mg/dL Glucose (74-99) mg/dL POC Glucose (mg/dL) 139 H (70-110) mg/dL Calcium (8.4-10.2) mg/dL Assessment and Plan Plan: Acute shortness of breath, likely multifactorial, and the patient is post bronchoscopy revealing endobronchial metastases consistent with ovarian cancer. Endobronchial biopsy was done confirming the findings and the patient was started on radiation therapy and she was given a total of 5 sessions of palliative radiation therapy to her chest. Also, a right-sided thoracentesis was done on 11/11/2022 and the fluid was nonmalignant. She is currently on oral prednisone 30 mg by mouth daily. Chest x-ray findings of essentially stable. She is on 3 L of oxygen by nasal cannula. Acute hypoxic respiratory failure currently on 3 L of oxygen by nasal cannula Metastatic ovarian carcinoma, diagnosed in 2008, with recurrence. The patient has diffuse adenopathy, both in the abdominal cavity and thoracic cavity. The patient also has pulmonary metastases Metastatic pulmonary nodules. Pleural effusion, right-sided posterior [place] on 11/11/2022 History of malignant pericardial effusion, status post pericardial window. Atrial flutter with rapid ventricular response, converted to normal sinus rhythm, no anticoagulants Hyponatremia she has with hypertonic saline, most recent sodium level is up to 124 Plan: Plan Continue hypertonic saline for now Monitor sodium level Fluid restriction Continue IV Lasix Semsca 30 mg oral The patient was given lokelma pentagrams ovarian cancer affecting lung parenchyma and endobronchial pulmonary metastases Continue with fluid restriction Continue oral steroids Titrate FiO2 to maintain a saturation above 90% Continue Levemir insulin for blood sugar control Continue Lasix 40 mg IV every 12 hours. Monitor fluid balance Coordinated work with nephrology We'll continue to follow I had a discussion with the patient. Her prognosis is obviously poor. Options are quite limited. Medication for chemotherapy. Received palliative therapy to her chest. She still wants to be a full code at this point in time although she understands that her condition is not curable and she may not recover from this current event. Further discussions to be done with her at the later stage.
[2022-11-23] MEDS: ALPRAZolam 0.25 MG TAB PO PRN ×2 (09:26→20:55)
--- NOTE | 2022-11-23 09:53 | P.PN ---
Subjective Patient is seen in follow-up for acute kidney injury and hyponatremia. Sodium level 124 this morning. Receiving 3%. Oral intake remains poor. Has lower extremity edema. Denies vomiting or diarrhea. Sitting up in chair. present at bedside. Vital signs are stable. General: No acute distress. HEENT: Head exam is unremarkable. LUNGS: No audible rhonchi or wheezes. HEART: Rate and Rhythm are regular. ABDOMEN: Nontender. EXTREMITITES: 2+ edema. Objective - Vital Signs Vital signs: Vital Signs Temp 96.6 F L 11/23/22 08:00 Pulse 80 11/23/22 08:46 Resp 13 11/23/22 08:00 BP 83/53 11/23/22 08:00 Pulse Ox 97 11/23/22 08:22 FiO2 Intake & Output 11/22/22 11/23/22 11/23/22 18:59 06:59 18:59 Intake Total 0 570 Output Total 390 535 100 Balance -390 35 -100 Weight 95 kg 95 kg Intake: IV 0 330 Sodium Chloride 3%( 0 330 Hypertonic) 500 ml @ 30 mls/hr IV .[id number] ONE Rx #:[id number] Oral 240 Output: Urine 390 535 100 Other: Voiding Method Indwelling Catheter Indwelling Catheter Indwelling Catheter - Labs CBC & Chem 7: 11/23/22 04:04 11/23/22 05:53 Labs: Abnormal Lab Results - Last 24 Hours (Table) 11/22/22 11/22/22 11/22/22 Range/Units 11:55 12:00 15:56 RBC (3.80-5.40) m/uL Hgb (11.4-16.0) gm/dL Hct (34.0-46.0) % RDW (11.5-15.5) % Plt Count (150-450) k/uL Neutrophils # (1.3-7.7) k/uL Lymphocytes # (1.0-4.8) k/uL Sodium 122 L 121 L (137-145) mmol/L Potassium 5.5 H 5.7 H (3.5-5.1) mmol/L Chloride 86 L 86 L (98-107) mmol/L Carbon Dioxide (22-30) mmol/L BUN 116 H* 118 H* (7-17) mg/dL Creatinine 3.00 H 2.97 H (0.52-1.04) mg/dL Glucose 174 H 185 H (74-99) mg/dL POC Glucose (mg/dL) 187 H (70-110) mg/dL Calcium 8.3 L (8.4-10.2) mg/dL 11/22/22 11/22/22 11/22/22 Range/Units 16:48 20:25 21:21 RBC (3.80-5.40) m/uL Hgb (11.4-16.0) gm/dL Hct (34.0-46.0) % RDW (11.5-15.5) % Plt Count (150-450) k/uL Neutrophils # (1.3-7.7) k/uL Lymphocytes # (1.0-4.8) k/uL Sodium 123 L (137-145) mmol/L Potassium (3.5-5.1) mmol/L Chloride (98-107) mmol/L Carbon Dioxide (22-30) mmol/L BUN (7-17) mg/dL Creatinine (0.52-1.04) mg/dL Glucose (74-99) mg/dL POC Glucose (mg/dL) 202 H 156 H (70-110) mg/dL Calcium (8.4-10.2) mg/dL 11/23/22 11/23/22 11/23/22 Range/Units 01:13 04:04 05:53 RBC 3.38 L (3.80-5.40) m/uL Hgb 11.2 L (11.4-16.0) gm/dL Hct 33.7 L (34.0-46.0) % RDW 18.7 H (11.5-15.5) % Plt Count 104 L (150-450) k/uL Neutrophils # 9.3 H (1.3-7.7) k/uL Lymphocytes # 0.4 L (1.0-4.8) k/uL Sodium 124 L 124 L (137-145) mmol/L Potassium 6.0 H (3.5-5.1) mmol/L Chloride 92 L (98-107) mmol/L Carbon Dioxide 20 L (22-30) mmol/L BUN 131 H* (7-17) mg/dL Creatinine 2.63 H (0.52-1.04) mg/dL Glucose 125 H (74-99) mg/dL POC Glucose (mg/dL) (70-110) mg/dL Calcium (8.4-10.2) mg/dL 11/23/22 Range/Units 06:55 RBC (3.80-5.40) m/uL Hgb (11.4-16.0) gm/dL Hct (34.0-46.0) % RDW (11.5-15.5) % Plt Count (150-450) k/uL Neutrophils # (1.3-7.7) k/uL Lymphocytes # (1.0-4.8) k/uL Sodium (137-145) mmol/L Potassium (3.5-5.1) mmol/L Chloride (98-107) mmol/L Carbon Dioxide (22-30) mmol/L BUN (7-17) mg/dL Creatinine (0.52-1.04) mg/dL Glucose (74-99) mg/dL POC Glucose (mg/dL) 139 H (70-110) mg/dL Calcium (8.4-10.2) mg/dL Assessment and Plan Plan: Assessment: 1. Hyponatremia, hypervolemic. 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 Sodium level 124 this morning. Urine osmolality 535. Repeat urine osmolality 323 and urine sodium less than 20. TSH 7.5 and free T4 normal. Better. 2. Metastatic ovarian cancer. 3. Acute kidney injury secondary to ATN secondary to hypotension. Creatinine 2.63 today. Urine output 30-50 mL an hour. 4. Acute hypoxic respiratory failure. History of pericardial window and also underwent right thoracentesis with 950 cc drained this admission. 5. Hyperkalemia secondary to acute kidney injury and acidosis. Hemolyzed sample. 6. A flutter. Now in sinus rhythm. Seen by cardiology. 7. Edema. 8. Metabolic acidosis secondary to acute kidney injury. On oral bicarbonate. Plan: Maintain fluid restriction. Maintain 3%. Maintain IV Lasix. Samsca 30 mg once now. Encouraged oral intake. Repeat BMP this afternoon. Awaiting PICC line. Lokelma 10 g once now. Prognosis guarded.
--- NOTE | 2022-11-23 10:11 | P.PN ---
Subjective Progress Note Date: 11/22/22 This is a 57-year-old female patient of Dr. Aguilar who presented with concerns of increased dyspnea. Patient reports that she was having improvement since previous admission with updraft and prednisone treatment but starts developing increased wheezing and shortness breath increasing over the past few days. patient has extensive medical history including ovarian cancer which was diagnosed 14 years ago and has been maintained on chemo therapy. Additional medical history includes previous episode of pericardial effusion with pericardial window. Chest x-ray showing cardiomegaly with mild pulmonary vascular congestion correlate with BMP for congestive heart failure. COPD changes. Chest CTA completed showing no evidence of pulmonary embolism U small bilateral pleural effusions him a new small pericardial effusion new pulmonary vascular congestion and cardiomegaly correlate with serum BNP. This time patient will be admitted patient's BREATHING treatments, IV Lasix, Solu-Medrol. Pulmonary cardiology and oncology services will be consulted. On 11/01/2022 patient was seen and examined on the telemetry floor she is alert and oriented 3 in no apparent distress she reports improvement in her shortness of breath otherwise she denies any complaints there is no fever or chills no headache or dizziness no chest pain no palpitation no nausea or vomiting no abdominal pain no diarrhea no blood in the stools no burning with urination no frequency or urgency and no hematuria On 11/02/2022 patient was seen and examined on the telemetry floor she is reporting improvement in her shortness of breath, otherwise she denies any complaints there is no fever or chills no headache or dizziness no chest pain no palpitation she has occasional cough no nausea or vomiting no abdominal pain no diarrhea no blood in the stools no burning with urination no frequency or urgency no hematuria. On 11/03/2022 patient is alert and oriented 3. Patient continued to show improvement in regards to breathing. Discussed case with pulmonary team patient will continue IV steroids no plans for bronchoscopy at this time. Patient denies chest pain. Patient denies nausea vomiting or diarrhea. Patient denies any urinary frequency. On 11/04/2022 patient was seen and examined on the medical floor, she is alert and oriented 3 in no apparent distress there is no fever or chills no headache or dizziness no chest pain no shortness of breath no cough no nausea or vomiting no abdominal pain no diarrhea and no urinary symptoms. At this time patient is being switched to oral prednisone and oral Lasix, no plans per pulmonary for bronchoscopy this time, patient has not been yet cleared for discharge, will continue to follow closely. 11/05/2022 patient is alert and oriented 3. Patient having increasing shortness of breath and crackles today. Patient has been transitioned to by mouth prednisone will discuss case with pulmonary services for possible bronchoscopy. Patient remains on Lasix. Her vital signs as 7.6, heart rate 98, respiratory rate 20, blood pressure 126/64 95% on 2 L On 11/06/2022 patient was seen and examined on the telemetry floor she is alert and oriented 3 in no apparent distress, she is reporting some improvement in her shortness of breath since yesterday she is still having occasional cough there is no fever or chills no headache or dizziness no chest pain no nausea or vomiting no abdominal pain no diarrhea no blood in the stools no burning with urination no frequency or urgency and no hematuria. Plan per pulmonary is to continue with current management at this time and to proceed with bronchoscopy on Tuesday. On 11/07/2022 patient is alert and oriented 3. Patient reports improvement with shortness of breath. Plans for bronchoscopy tomorrow and patient also had an episode of atrial flutter cardiology services have been consulted. Heart rate has improved. This time patient denies chest pain. Patient denies nausea vomiting or diarrhea. Patient denies any urinary burning or frequency. On 11/08/2022 patient was seen and examined on the medical floor she is alert and oriented 3 in no apparent distress there is no fever or chills no headache or dizziness no chest pain, she is still complaining of shortness of breath and cough no nausea or vomiting no abdominal pain no diarrhea and no urinary symptoms On 11/09/2022 patient was seen and examined on the medical floor she is alert and oriented 3 in no apparent distress, she is complaining of muscle cramps and pain otherwise she denies any complaints there is no fever or chills no headache or dizziness no chest pain, she is still complaining of shortness of breath and cough no nausea or vomiting no abdominal pain no diarrhea and no urinary symptoms. Tracy was added for pain, consultation was added for nephrology regarding hyponatremia. On 11/10/2022 patient is alert and oriented 3. Patient having increased wheezing today. Per oncology arranging for possible inpatient palliative radiation to endobronchial bronchial lesions causing near-complete occlusion of the right upper lobe. Patient also being followed by nephrology services for hyponatremia sodium improving slightly to 122. at this time patient denies chest pain. Denies nausea vomiting or diarrhea. Patient denies any urinary burning or frequency. On 11/11/2022 patient is alert and oriented 3. Plans for palliative radiation today and tomorrow for endobronchial lesions. This time patient remains with audible wheezing and shortness of breath. Patient denies chest pain. Patient denies nausea vomiting or diarrhea. Patient denies any urinary burning or frequency. Sodium 126. Dr. Romano's group covering from 11/12/2022- 11/17/2022 On 11/17/2022 patient is alert and oriented 3. Patient has underwent pa lliative radiation. Apparently patient had episodes of tunnel vision and dizziness. Patient was evaluated by neurology services CT of the brain completed showing no acute process. Nephrology services were consulted and MRI and EEG has been ordered. Nephrology services continue to follow her hypo natremia. On 11/18/2022 patient was seen and examined on the medical floor she is alert and oriented 3 in no apparent distress there is no fever or chills no headache or dizziness no chest pain no shortness of breath no cough she has occasional nausea no vomiting no abdominal pain no diarrhea and no urinary symptoms. Patient is complaining of generalized pain, she is also complaining of oral th barone with difficulty swallowing. She has been refusing most of her meals, this was discussed in details with patient, at this time will add appetite stimulant Megace 400 mg suspension once daily. CODE STATUS was discussed again with patient and her , patient wants to be a full code at this time. On 11/19/2022 patient is alert and oriented 3. Patient to get last treatment of radiation today. Patient remains weak with shortness of breath. Patient denies chest pain. Patient's sodium slightly increased 121. Patient does report improvement with taking medication. On 2022 patient was seen and examined on the medical floor, she is alert and oriented 3 in no apparent distress she is complaining of generalized malaise and weakness otherwise no specific complaints sodium is down to 118 nephrology are following there is no fever or chills no headache or dizziness no chest pain no shortness of breath no cough no nausea or vomiting no abdominal pain no diarrhea and no urinary symptoms On 11/21/2022 patient currently sitting up in chair alert and oriented at bedside. Discussed case with nephrology services. If sodium continues to be critically low patient will require transfer to ICU and 3%. Indwelling F[place] catheter also ordered to monitor input and output. On 11/22/2022 patient was seen and examined in the ICU she is alert and oriented 3 in no apparent distress she had significant difficulty with low sodium over the last few days she was transferred to ICU and was started on hypertonic saline 3% sodium is up to 122 nephrology and critical care are following patient is feeling anxious she is having shortness of breath with any activity she is maintained on oxygen 3 L via nasal cannula otherwise she denies any complaints at this time Objective - Vital Signs Vital signs: Vital Signs Temp 97.3 F L 11/22/22 08:00 Pulse 70 11/22/22 09:42 Resp 16 11/22/22 09:00 BP 90/66 11/22/22 09:00 Pulse Ox 95 11/22/22 09:00 FiO2 Intake & Output 11/21/22 11/22/22 11/22/22 18:59 06:59 18:59 Intake Total 190 330 0 Output Total 320 375 70 Balance -130 -45 -70 Weight 95 kg Intake: IV 300 0 Sodium Chloride 3%( 300 0 Hypertonic) 500 ml @ 30 mls/hr IV .[id number] ONE Rx #:[id number] Intake, IV Titration 90 30 Amount Sodium Chloride 3%( 90 30 Hypertonic) 500 ml @ 30 mls/hr IV .[id number] ONE Rx #:[id number] Oral 100 Output: Urine 320 375 70 Other: Voiding Method Indwelling Catheter Indwelling Catheter Indwelling Catheter - Exam In general patient is alert and oriented x 3 in no distress HEENT head normocephalic and atraumatic Neck is supple no JVD no goiter no lymphadenopathy no carotid bruit Chest examination is clear to auscultation no crackles no wheezing Cardiac exam reveals regular heart sounds S1 and S2 no gallops no murmurs Abdomen is soft nontender no organomegaly with normal bowel sounds Extremity exam reveals no edema no cyanosis or clubbing Neurological examination reveals no gross focal deficits - Labs CBC & Chem 7: 11/22/22 04:00 11/22/22 15:56 Labs: Abnormal Lab Results - Last 24 Hours (Table) 11/21/22 11/21/22 11/21/22 Range/Units 11:26 11:38 14:43 RBC (3.80-5.40) m/uL Hgb (11.4-16.0) gm/dL MCV (80.0-100.0) fL RDW (11.5-15.5) % Plt Count (150-450) k/uL Neutrophils # (1.3-7.7) k/uL Lymphocytes # (1.0-4.8) k/uL Sodium 116 L* (137-145) mmol/L Potassium 6.3 H* (3.5-5.1) mmol/L Chloride 81 L (98-107) mmol/L BUN 106 H* (7-17) mg/dL Creatinine 2.61 H (0.52-1.04) mg/dL Glucose 150 H (74-99) mg/dL POC Glucose (mg/dL) 177 H 129 H (70-110) mg/dL Magnesium (1.6-2.3) mg/dL Total Bilirubin (0.2-1.3) mg/dL AST (14-36) U/L ALT (4-34) U/L Alkaline Phosphatase (38-126) U/L Total Protein (6.3-8.2) g/dL Albumin (3.5-5.0) g/dL TSH 7.590 H (0.465-4.680) mIU/L 11/21/22 11/21/22 11/21/22 Range/Units 15:53 18:47 19:57 RBC (3.80-5.40) m/uL Hgb (11.4-16.0) gm/dL MCV (80.0-100.0) fL RDW (11.5-15.5) % Plt Count (150-450) k/uL Neutrophils # (1.3-7.7) k/uL Lymphocytes # (1.0-4.8) k/uL Sodium 120 L 120 L (137-145) mmol/L Potassium 5.4 H (3.5-5.1) mmol/L Chloride 82 L (98-107) mmol/L BUN 104 H* (7-17) mg/dL Creatinine 2.94 H (0.52-1.04) mg/dL Glucose (74-99) mg/dL POC Glucose (mg/dL) 194 H (70-110) mg/dL Magnesium (1.6-2.3) mg/dL Total Bilirubin (0.2-1.3) mg/dL AST (14-36) U/L ALT (4-34) U/L Alkaline Phosphatase (38-126) U/L Total Protein (6.3-8.2) g/dL Albumin (3.5-5.0) g/dL TSH (0.465-4.680) mIU/L 11/21/22 11/22/22 11/22/22 Range/Units 22:07 01:07 04:00 RBC (3.80-5.40) m/uL Hgb (11.4-16.0) gm/dL MCV (80.0-100.0) fL RDW (11.5-15.5) % Plt Count (150-450) k/uL Neutrophils # (1.3-7.7) k/uL Lymphocytes # (1.0-4.8) k/uL Sodium 121 L 121 L 122 L (137-145) mmol/L Potassium 5.6 H (3.5-5.1) mmol/L Chloride 85 L (98-107) mmol/L BUN 113 H* (7-17) mg/dL Creatinine 2.76 H (0.52-1.04) mg/dL Glucose 131 H (74-99) mg/dL POC Glucose (mg/dL) (70-110) mg/dL Magnesium 2.5 H (1.6-2.3) mg/dL Total Bilirubin 1.8 H (0.2-1.3) mg/dL AST 322 H (14-36) U/L ALT 99 H (4-34) U/L Alkaline Phosphatase 348 H (38-126) U/L Total Protein 5.7 L (6.3-8.2) g/dL Albumin 3.2 L (3.5-5.0) g/dL TSH (0.465-4.680) mIU/L 11/22/22 11/22/22 Range/Units 04:00 06:46 RBC 3.33 L (3.80-5.40) m/uL Hgb 10.9 L (11.4-16.0) gm/dL MCV 103.5 H (80.0-100.0) fL RDW 18.0 H (11.5-15.5) % Plt Count 144 L (150-450) k/uL Neutrophils # 9.2 H (1.3-7.7) k/uL Lymphocytes # 0.6 L (1.0-4.8) k/uL Sodium (137-145) mmol/L Potassium (3.5-5.1) mmol/L Chloride (98-107) mmol/L BUN (7-17) mg/dL Creatinine (0.52-1.04) mg/dL Glucose (74-99) mg/dL POC Glucose (mg/dL) 161 H (70-110) mg/dL Magnesium (1.6-2.3) mg/dL Total Bilirubin (0.2-1.3) mg/dL AST (14-36) U/L ALT (4-34) U/L Alkaline Phosphatase (38-126) U/L Total Protein (6.3-8.2) g/dL Albumin (3.5-5.0) g/dL TSH (0.465-4.680) mIU/L Assessment and Plan Assessment: 1. Acute on chronic hypoxic respiratory failure 2. Pericardial effusion on computed tomography scan of the chest 3. History of pericardial window 4. History of ovarian cancer with metastatic disease 5. Bronchospasms 6. History of oral thrush 7. Atrial flutter. Cardiology services consulted 8. Status post bronchoscopy on 11/08/2022 findings of new endobronchial lesions with near-complete occlusion of the right upper lobe 9. Hyponatremia per nephrology high suspicion for underlying SIADH. 10. Dizziness and tunnel vision. Neurology services were consulted and MRI EEG has been ordered 11. Positive sputum culture for staph aureus. Maintain on IV cefazolin Pulmonary cardiology service is consulted s/p bronchoscopy on 11/08/2022 radiation to endobronchial lesions on 11/11/2022 and 11/12/2022 MRI and EEG ordered per neurology Repeat labs ordered
[2022-11-23 11:52] LABS: Glucose,Whole Blood 182 mg/dL (70-110)
--- NOTE | 2022-11-23 11:54 | P.PN ---
Subjective Progress Note Date: 11/23/22 Principal diagnosis: metastatic ovarian cancer At today's visit patient reports her shortness of breath is worse as well as increased weakness. Patient verbalized that she is mentally and physically exhausted and was questioning quality versus quantity of life. Discussed with p atient and family about hospice options. Discussed with patient that we will speak to her primary oncologist, Dr. Thibodeaux to discuss her case, as there was a possibility to transfer patient to [facility] if the patient's symptoms weren't improving s/p RT. Informed patient that we will speak with Dr. Thibodeaux today and follow-up with her to further discuss potential treatment options versus hospice care. It was also discussed with patient that due to her poor performance status, that unfortunately she may not likely be able to tolerate systemic treatment at this time. Patient and family's questions were answered to the best of our ability. Sodium and creatinine mildly improved today. Ne phrology following. Objective - Vital Signs Vital signs: Vital Signs Temp 96.6 F L 11/23/22 08:00 Pulse 81 11/23/22 10:00 Resp 32 H 11/23/22 10:00 BP 99/66 11/23/22 10:00 Pulse Ox 97 11/23/22 10:00 FiO2 Intake & Output 11/22/22 11/23/22 11/23/22 18:59 06:59 18:59 Intake Total 0 570 Output Total 390 535 170 Balance -390 35 -170 Weight 95 kg 95 kg Intake: IV 0 330 Sodium Chloride 3%( 0 330 Hypertonic) 500 ml @ 30 mls/hr IV .[id number] ONE Rx #:[id number] Oral 240 Output: Urine 390 535 170 Other: Voiding Method Indwelling Catheter Indwelling Catheter Indwelling Catheter - Constitutional General appearance: Present: average body habitus, no acute distress - EENT Eyes: Present: anicteric sclerae, EOMI ENT: Present: hearing grossly normal - Respiratory Details: Breathing even and unlabored - Cardiovascular Details: skin warm and dry - Neurologic Neurologic Comment(s): grossly intact - Musculoskeletal Musculoskeletal: Present: generalized weakness - Psychiatric Psychiatric: Present: A&O x's 3, appropriate affect, intact judgment & insight - Labs CBC & Chem 7: 11/23/22 04:04 11/23/22 09:11 Labs: Abnormal Lab Results - Last 24 Hours (Table) 11/22/22 11/22/22 11/22/22 Range/Units 11:55 12:00 15:56 RBC (3.80-5.40) m/uL Hgb (11.4-16.0) gm/dL Hct (34.0-46.0) % RDW (11.5-15.5) % Plt Count (150-450) k/uL Neutrophils # (1.3-7.7) k/uL Lymphocytes # (1.0-4.8) k/uL Sodium 122 L 121 L (137-145) mmol/L Potassium 5.5 H 5.7 H (3.5-5.1) mmol/L Chloride 86 L 86 L (98-107) mmol/L Carbon Dioxide (22-30) mmol/L BUN 116 H* 118 H* (7-17) mg/dL Creatinine 3.00 H 2.97 H (0.52-1.04) mg/dL Glucose 174 H 185 H (74-99) mg/dL POC Glucose (mg/dL) 187 H (70-110) mg/dL Calcium 8.3 L (8.4-10.2) mg/dL 11/22/22 11/22/22 11/22/22 Range/Units 16:48 20:25 21:21 RBC (3.80-5.40) m/uL Hgb (11.4-16.0) gm/dL Hct (34.0-46.0) % RDW (11.5-15.5) % Plt Count (150-450) k/uL Neutrophils # (1.3-7.7) k/uL Lymphocytes # (1.0-4.8) k/uL Sodium 123 L (137-145) mmol/L Potassium (3.5-5.1) mmol/L Chloride (98-107) mmol/L Carbon Dioxide (22-30) mmol/L BUN (7-17) mg/dL Creatinine (0.52-1.04) mg/dL Glucose (74-99) mg/dL POC Glucose (mg/dL) 202 H 156 H (70-110) mg/dL Calcium (8.4-10.2) mg/dL 11/23/22 11/23/22 11/23/22 Range/Units 01:13 04:04 05:53 RBC 3.38 L (3.80-5.40) m/uL Hgb 11.2 L (11.4-16.0) gm/dL Hct 33.7 L (34.0-46.0) % RDW 18.7 H (11.5-15.5) % Plt Count 104 L (150-450) k/uL Neutrophils # 9.3 H (1.3-7.7) k/uL Lymphocytes # 0.4 L (1.0-4.8) k/uL Sodium 124 L 124 L (137-145) mmol/L Potassium 6.0 H (3.5-5.1) mmol/L Chloride 92 L (98-107) mmol/L Carbon Dioxide 20 L (22-30) mmol/L BUN 131 H* (7-17) mg/dL Creatinine 2.63 H (0.52-1.04) mg/dL Glucose 125 H (74-99) mg/dL POC Glucose (mg/dL) (70-110) mg/dL Calcium (8.4-10.2) mg/dL 11/23/22 11/23/22 Range/Units 06:55 09:11 RBC (3.80-5.40) m/uL Hgb (11.4-16.0) gm/dL Hct (34.0-46.0) % RDW (11.5-15.5) % Plt Count (150-450) k/uL Neutrophils # (1.3-7.7) k/uL Lymphocytes # (1.0-4.8) k/uL Sodium 127 L (137-145) mmol/L Potassium (3.5-5.1) mmol/L Chloride (98-107) mmol/L Carbon Dioxide (22-30) mmol/L BUN (7-17) mg/dL Creatinine (0.52-1.04) mg/dL Glucose (74-99) mg/dL POC Glucose (mg/dL) 139 H (70-110) mg/dL Calcium (8.4-10.2) mg/dL Assessment and Plan (1) Acute bronchospasm Current Visit: Yes Status: Acute Priority: High Code(s): J98.01 - ACUTE BRONCHOSPASM SNOMED Code(s): 36031514494836 (2) Primary malignant neoplasm of ovary with widespread metastatic disease Current Visit: Yes Status: Chronic Priority: High Code(s): C56.9 - MALIGNANT NEOPLASM OF UNSPECIFIED OVARY; C80.0 - DISSEMINATED MALIGNANT NEOPLASM, UNSPECIFIED SNOMED Code(s): 189658181 (3) Macrocytic anemia Current Visit: Yes Status: Chronic Priority: Medium Code(s): D53.9 - NUTRITIONAL ANEMIA, UNSPECIFIED SNOMED Code(s): 36869536 Plan: Hyponatremia -SIADH from malignancy -Nephrology has been following -Persistent despite Samsca, lokelma and fluid restrictions -Sodium improving, 124 on today's labs -S/p 3% hypertonic saline Wheezing, dyspnea -Recurrent after completing prednisone taper from admit 10/07/2022 -S/p right sided thoracentesis with 950 mL removed and broncoscopy with lavage/washing and biopsy of RUL/RML. right pleural fluid negative for malignancy. Right upper lobe brushing compatible with non-small cell carcinoma. Right upper lobe and right middle lobe transbronchial biopsy positive for metastatic non-mucinous mullerian/ovarian carcinoma -Radiation Oncology evaluation. Has completed 5/5 fractions of palliative radiation to endobronchial lesions. -Case has been discussed with her primary gynecologic oncologist Dr. Thibodeaux and Dr. Richey of radiation oncology. Plan was to consider arranging transfer to [facility] if there was not any significant improvement in her breathing. Patient verbalized that she is mentally and physically exhausted and was questioning quality versus quantity of life. Discussed with patient and family about hospice options. Discussed with patient that we will speak to her primary oncologist Dr. Thibodeaux to discuss her case, as there was a possibility to transfer patient to [facility] if the patient's symptoms weren't improving s/p RT. Informed patient that we will speak with Dr. Thibodeaux today and follow-up with her to further discuss potential treatment options versus hospice care. It was also discussed with patient that due to her poor performance status, that unfortunately she may not likely be able to tolerate systemic treatment at this time. Patient and familys questions were answered to the best of our ability. -Continues on prednisone, breathing treatments and inhalers -Plan for 6 week slow taper for treatment of likely underlying pneumonitis 2/2 niraparib treatment, complicated by metastatic disease -pulmonology following Metastatic ovarian adenocarcinoma: -Follows with Dr. Thibodeaux and Dr. Cerda. -Completed 7 cycles of Doxil/carbo 03/06, maintenance Zejula 05/2022-09/10/22 -Pericardial fluid and pericardium biopsy obtained 08/05, were positive for metastatic ovarian carcinoma, PET showed metastatic disease in July. -Dr. Thibodeaux recommended optimizing her pulmonary function prior to proceeding with additional treatment -F/U with Dr. Thibodeaux was missed due to hospitalization, pt will reschedule upon discharge. Macrocytic anemia -Hgb near baseline -Anemia likely due to Hx of chemotherapy -No nutritional deficiency anemias noted. TSH WNL -Transfuse if symptomatic or Hgb <7.
[2022-11-23] MEDS ORDERED: SODIUM CHLORIDE 3%(HYPERTONIC) 500 ML IV ONE (11:55)
[2022-11-23 11:57] LABS: Magnesium 2.5 mg/dL (1.6-2.3)
[2022-11-23] MEDS: SODIUM CHLORIDE 3%(HYPERTONIC) 500 ML IV ONE (12:00)
[2022-11-23] MEDS ORDERED: LIDOCAINE 1% INJ 10MG/ML (5 ML VIAL-PF) SQ ONE (12:34)
[2022-11-23 12:39] LABS: Phosphorus 7.2 mg/dL (2.5-4.5)
--- NOTE | 2022-11-23 13:05 | XR ---
EXAMINATION TYPE: XR chest 1V portable DATE OF EXAM: 11/23/2022 Comparison: 11/23/2022 Clinical History: 57-year-old female PICC PLACEMENT Findings: Right PICC tip at the lower SVC. Heart remains mildly enlarged. Diffuse interstitial density also per sists. Retrocardiac and left basilar opacity persists. Impression: 1. Right PICC tip at the lower SVC. 2. Possible ongoing mild pulmonary vascular congestion. Ongoing retrocardiac and left basilar atelect asis and/or consolidation.
--- NOTE | 2022-11-23 13:16 | IR ---
PICC LINE PLACEMENT: HISTORY: Infection requiring long-term antibiotic therapy PROCEDURE: Ultrasound guidance of PICC line placement. MODERN AND CONTEMPORARY ART CURATOR: Dr. Rodriguez. COMPLICATIONS: None ANESTHESIA: 1. 1% Lidocaine locally. FINDINGS/TECHNIQUE: The procedure was explained to the patient. The risks, complications, benefits and alternatives were discussed and any questions were answered. Informed consent was obtained. The patient was placed supine on the fluoroscopic table and prepped and draped in the usual sterile fas ion. Utilizing a 21 gauge needle and sonographic guidance, access in the right basilic vein was ach ieved and there is placement of a 0.018 guidewire. The vein is patent. A 5-F. Sheath was placed ove r the guidewire. The guidewire and dilator were removed and a 5-F. Double lumen PICC line was placed through the sheath with the chest x-ray confirming the tip at the level of the SVC. The sheath was removed, the catheter was flushed and sutured into position. The patient was stable throughout the p rocedure and remained stable upon discharge from the Department of Radiology. The vein puncture was patent under ultrasound. A robbins scale image was obtained to document patency of the vein punctured. All elements of the maximal barrier technique were utilized. IMPRESSION: 1. Successful PICC line placement under ultrasound performed bedside within the ICU.
[2022-11-23] MEDS ORDERED: MVI, ADULT NO.4 WITH VIT K 10 ML, TRACE (CONC-1ML/DOSE) 1 ML, SODIUM CHLORIDE 4MEQ/ML V... IV SCH ×4 (14:00)
[2022-11-23] MEDS: 1: MVI, ADULT NO.4 WITH VIT K 10 ML, TRACE (CONC-1ML/DOSE) 1 ML, SODIUM CHLORIDE 4MEQ/ML IV SCH ×5 (15:21)
[2022-11-23 16:27] LABS: Glucose,Whole Blood 236 mg/dL (70-110)
[2022-11-23] MEDS: guaiFENesin-DM 100-10MG/5ML 10 ML CUP PO PRN ×2 (16:41→23:50)
[2022-11-23] MEDS: SENNOSIDES-DOCUSATE SODIUM 1 EACH TAB PO SCH (20:24)
[2022-11-23] MEDS: ZYRTEC 10MG TABLET PO SCH (20:26)
[2022-11-23 20:46] LABS: Glucose,Whole Blood 234 mg/dL (70-110)
[2022-11-23] MEDS: INSULIN DETEMIR (LEVEMIR) 100 UNIT/ML SYR SQ SCH (20:55)
[2022-11-24] MEDS: HYDROcodone/APAP 5-325MG 1 EACH TAB PO PRN (02:12)
[2022-11-24] MEDS: IPRATROPIUM-ALBUTEROL 3 ML NEB INHALATION SCH ×5 (04:04→20:14)
[2022-11-24 04:23] LABS: Ionized Calcium 4.2 mg/dL (4.5-5.3)
[2022-11-24 04:24] LABS: Anisocytosis Slight; Basophils % (A) 0 %; Eosinophils % (A) 1 %; HGB 10.9 gm/dL (11.4-16.0); Hypochromasia Marked; Lymphocytes # (A) 0.4 k/uL (1.0-4.8); Lymphocytes % (A) 4 %; MCH 34.4 pg (25.0-35.0); MCHC 32.2 g/dL (31.0-37.0); Macrocytosis Marked; Mean Platelet Volume 8.4; Monocytes # (A) 0.5 k/uL (0-1.0); Monocytes % (A) 5 %; Neutrophils # (A) 8.4 k/uL (1.3-7.7); Neutrophils % (A) 90 %; Platelet Count 100 k/uL (150-450); RBC 3.18 m/uL (3.80-5.40); RDW 18.7 % (11.5-15.5); WBC 9.3 k/uL (3.8-10.6)
[2022-11-24 04:30] LABS: Anion Gap 10 mmol/L; Calcium 7.9 mg/dL (8.4-10.2); Carbon Dioxide 26 mmol/L (22-30); Chloride 95 mmol/L (98-107); Glucose 194 mg/dL (74-99); Magnesium 2.6 mg/dL (1.6-2.3); Phosphorus 6.6 mg/dL (2.5-4.5); Potassium 4.3 mmol/L (3.5-5.1); Sodium 131 mmol/L (137-145)
[2022-11-24 04:35] LABS: African American GFR (CKD) 19 (>60 ml/min/1.73 sqM); Non-African American GFR(CKD) 17 (>60 ml/min/1.73 sqM)
[2022-11-24 04:39] LABS: Blood Urea Nitrogen 128 mg/dL (7-17)
[2022-11-24 04:53] LABS: MCV 107.1 fL (80.0-100.0)
[2022-11-24 06:00] LABS: Glucose,Whole Blood 215 mg/dL (70-110)
[2022-11-24] MEDS: MIDODRINE 5 MG TAB PO SCH ×3 (06:38→18:14)
[2022-11-24] MEDS: INSULIN ASPART (NovoLOG) 100 UNIT/ML VIAL SQ SCH ×7 (06:39→21:15)
[2022-11-24] MEDS: BUDESONIDE 1 MG/2 ML NEBU INHALATION SCH ×2 (07:44→20:14)
--- NOTE | 2022-11-24 07:49 | XR ---
EXAMINATION TYPE: XR chest 1V portable DATE OF EXAM: 11/24/2022 5:51 AM COMPARISON: Chest radiographs from; 11/23/2022 TECHNIQUE: XR chest 1V portable Frontal view of the chest. CLINICAL INDICATION:Female, 57 years old with history of Bilat pleural effusions; FINDINGS: Lungs/Pleura: Low lung volumes are present. There is no evidence of pleural effusion, focal consolida tion, or pneumothorax. Pulmonary vascularity: Unremarkable. Heart/mediastinum: Cardiomediastinal silhouette is unremarkable. Musculoskeletal: No acute osseous pathology. Other findings: None Lines/Tubes: Right-sided PICC line with distal tip at the cavoatrial junction. IMPRESSION: No acute cardiopulmonary disease/process.
[2022-11-24] MEDS: FORMOTEROL FUMARATE 20 MCG/2 ML NEBU INHALATION SCH ×2 (07:58→20:14)
[2022-11-24 08:13] LABS: Glucose,Whole Blood 202 mg/dL (70-110)
[2022-11-24] MEDS: AMIODARONE 200 MG TAB PO SCH ×2 (08:41→21:16)
[2022-11-24] MEDS: FAMOTIDINE 20 MG TAB PO SCH (08:41)
[2022-11-24] MEDS: SODIUM BICARBONATE TAB 650 MG TAB PO SCH ×2 (08:42→21:16)
[2022-11-24] MEDS: BENZONATATE 100 MG CAP PO SCH ×3 (08:42→21:16)
[2022-11-24] MEDS: METOPROLOL TARTRATE 12.5 MG TAB PO SCH ×2 (08:42→21:15)
[2022-11-24] MEDS: MEGESTROL 400 MG/10 ML CUP PO SCH (08:42)
[2022-11-24] MEDS: FLUCONAZOLE 150 MG TAB PO SCH (08:42)
[2022-11-24] MEDS: FUROSEMIDE 10 MG/ML 4 ML VIAL IV SCH ×2 (08:42→21:15)
[2022-11-24] MEDS: HEPARIN SODIUM,PORCINE/PF 5,000 UNIT/0.5 ML SYRINGE SQ SCH ×2 (08:42→21:16)
[2022-11-24] MEDS: predniSONE 10 MG TAB PO SCH (08:42)
[2022-11-24] MEDS: FLUTICASONE 50MCG/SPRAY NASAL 16GM EA NOSTRIL SCH ×2 (08:43→21:17)
--- NOTE | 2022-11-24 09:20 | P.PN ---
Subjective Progress Note Date: 11/24/22 On today's evaluation of 11/22/2022 on seeing the patient for a follow-up. Patient is known to me from previous evaluations. 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 The patient is currently on a combination of demeclocycline and talvaptan and the medication was discontinued and the patient was given hypertonic saline with a sodium level of 116 and follow-up sodium level instead 122. Meanwhile, the patient was also given lokelma 10 g for a potassium level of 5.6 and awaiting follow-up levels. BUN is at 113, creatinine is at 2.7 and the patient is a component of an acute kidney injury. Overall respiratory status remains unchanged. She remains on oxygen at 4 L pH she received radiation therapy to her chest by radiation oncology a total of 5 sessions. She remains on prednisone. She was cultured to have staph aureus in her sputum on an earlier bronchoscope and this was treated and currently she is on no antibacterial agents. She is taking oral Diflucan. She remains on prednisone 30 mg by mouth daily. She is also taken Levemir insulin 6 units at bedtime and 4 units with meals of [employer]. Oncology is on the case for now. 11/23/2022, I'm seeing the patient for a follow-up. Condition is essentially the same in terms of breathing. Short of breath, oxygen dependent, has a congested cough, unable to bring up much sputum and it is essentially related to her extensive pulmonary metastases. At the same time, the patient has persi stent hyponatremia secondary to SIADH. The morning sodium level is at 124. Hypertonic saline was started again at the rate of 30 mL an hour, 3% saline. Potassium levels at 6. The BUN is 131 with a creatinine of 2.6. The patient is on IV Lasix. The fluid balance is -3 on 55 mL over the past 24 hours and urine output is adequate for now. The ribs was at 10.4 with a hemoglobin 11.2 and a platelet count of 104. The calcium level is at 8.5. The serum albumin level was at 3.2 from yesterday. The repeat chest x-ray from today shows cardiomegaly, but the pleural effusions and the patient is on oxygen at 4 L nasal cannula with a pulse ox of 97%. She's getting progressively more discouraged and distressed and frustrated. She wants to still be a full code. Nephrology consider TPN on her. The final decision has not been done as the patient is not meeting her caloric requirements and her oral intake is quite diminished. Not a candidate for chemotherapy. He received palliative therapy with radiation to her chest. 11/24/2022, the patient is essentially the same. No issues with pain. She has chronic shortness of breath cough. She has pulmonary metastases from ovarian cancer as stated earlier. She has improvement in her sodium level is up to 131 and the patient was taken off the hypertonic saline. She still on Lasix and she is receiving a dose of 40 mg IV every 12 hours. The fluid balance is -460 mL and the patient continues to have significant amount of edema lower extremities. The BUN is at 128 with a creatinine of 2.99. Her sodium at 131 with a potassium level of 4.3. The white cycles of 9.3 with a hemoglobin of 10.9. She is on oxygen and she is currently on 2 L with a pulse ox of 93%. She remains on bronchodilators. She remains on Levemir insulin. She is on Novo[employer] sinus Coverage. She was started on TPN yesterday via PICC line. This was suggested by nephrology due to her poor oral intake. TPN is running at the rate of 30 mL an hour. She remains on prednisone 30 mg by mouth daily. Objective - Vital Signs Vital signs: Vital Signs Temp 96.1 F L 11/24/22 08:00 Pulse 77 11/24/22 09:00 Resp 16 11/24/22 09:00 BP 90/69 11/24/22 09:00 Pulse Ox 93 L 11/24/22 09:00 FiO2 Intake & Output 11/23/22 11/24/22 11/24/22 18:59 06:59 18:59 Intake Total 80 765 60 Output Total 545 760 80 Balance -465 5 -20 Weight 95 kg 96.4 kg Intake: IV 80 465 60 Invasive Line 6 80 Mvi, Adult No.4 with Vit 330 60 K 10 ml Trace (Conc-1Ml/ Dose) 1 ml Sodium Chloride 4Meq/ml Vial 32 meq In Amino Acid 4.25%- D10w 1,000 ml @ 30 mls/hr IV .Q24H [facility] Rx#: [id number] Sodium Chloride 3%( 135 Hypertonic) 500 ml @ 30 mls/hr IV .[id number] ONE Rx #:[id number] Oral 0 300 Output: Urine 545 760 80 Other: Voiding Method Indwelling Catheter Indwelling Catheter - Exam No acute distress, oriented 3. Currently on 3 L. No conversational dyspnea or use of accessory muscles. The patient is currently on room air oxygen HEENT examination is grossly unremarkable. Mucous membranes are moist. No oral lesions. Neck supple. Full range of motion. No adenopathy thyromegaly or neck vein distention. Cardiovascular examination reveals regular rhythm rate. S1-S2 normal. No S3 or S4. No discernible murmur noted. Lungs reveal scattered rhonchi. No wheezes or crackles. Breath sounds equal bilaterally. Crackles are appreciated in lung bases bilaterally Abdomen soft bowel sounds are heard. No masses or tenderness. Extremities are intact. No cyanosis or clubbing. Trace lower extremity edema. Skin is without rash or lesion. Neurologic examination is brief but nonfocal. - Labs CBC & Chem 7: 11/24/22 04:05 11/24/22 04:05 Labs: Abnormal Lab Results - Last 24 Hours (Table) 11/23/22 11/23/22 11/23/22 Range/Units 09:11 09:11 11:50 RBC (3.80-5.40) m/uL Hgb (11.4-16.0) gm/dL MCV (80.0-100.0) fL RDW (11.5-15.5) % Plt Count (150-450) k/uL Neutrophils # (1.3-7.7) k/uL Lymphocytes # (1.0-4.8) k/uL Macrocytosis Sodium 127 L (137-145) mmol/L Chloride (98-107) mmol/L BUN (7-17) mg/dL Creatinine (0.52-1.04) mg/dL Glucose (74-99) mg/dL POC Glucose (mg/dL) 182 H (70-110) mg/dL Calcium (8.4-10.2) mg/dL Ionized Calcium Tee (4.5-5.3) mg/dL Phosphorus 7.2 H (2.5-4.5) mg/dL Magnesium 2.5 H (1.6-2.3) mg/dL 11/23/22 11/23/22 11/23/22 Range/Units 15:49 16:24 20:45 RBC (3.80-5.40) m/uL Hgb (11.4-16.0) gm/dL MCV (80.0-100.0) fL RDW (11.5-15.5) % Plt Count (150-450) k/uL Neutrophils # (1.3-7.7) k/uL Lymphocytes # (1.0-4.8) k/uL Macrocytosis Sodium 128 L (137-145) mmol/L Chloride (98-107) mmol/L BUN (7-17) mg/dL Creatinine (0.52-1.04) mg/dL Glucose (74-99) mg/dL POC Glucose (mg/dL) 236 H 234 H (70-110) mg/dL Calcium (8.4-10.2) mg/dL Ionized Calcium Tee (4.5-5.3) mg/dL Phosphorus (2.5-4.5) mg/dL Magnesium (1.6-2.3) mg/dL 11/23/22 11/24/22 11/24/22 Range/Units 20:45 00:00 04:05 RBC (3.80-5.40) m/uL Hgb (11.4-16.0) gm/dL MCV (80.0-100.0) fL RDW (11.5-15.5) % Plt Count (150-450) k/uL Neutrophils # (1.3-7.7) k/uL Lymphocytes # (1.0-4.8) k/uL Macrocytosis Sodium 129 L 131 L 131 L (137-145) mmol/L Chloride 95 L (98-107) mmol/L BUN 128 H* (7-17) mg/dL Creatinine 2.99 H (0.52-1.04) mg/dL Glucose 194 H (74-99) mg/dL POC Glucose (mg/dL) (70-110) mg/dL Calcium 7.9 L (8.4-10.2) mg/dL Ionized Calcium Tee 4.2 L (4.5-5.3) mg/dL Phosphorus 6.6 H (2.5-4.5) mg/dL Magnesium 2.6 H (1.6-2.3) mg/dL 11/24/22 11/24/22 11/24/22 Range/Units 04:05 05:59 08:12 RBC 3.18 L (3.80-5.40) m/uL Hgb 10.9 L (11.4-16.0) gm/dL MCV 107.1 H D (80.0-100.0) fL RDW 18.7 H (11.5-15.5) % Plt Count 100 L (150-450) k/uL Neutrophils # 8.4 H (1.3-7.7) k/uL Lymphocytes # 0.4 L (1.0-4.8) k/uL Macrocytosis Marked A Sodium (137-145) mmol/L Chloride (98-107) mmol/L BUN (7-17) mg/dL Creatinine (0.52-1.04) mg/dL Glucose (74-99) mg/dL POC Glucose (mg/dL) 215 H 202 H (70-110) mg/dL Calcium (8.4-10.2) mg/dL Ionized Calcium Tee (4.5-5.3) mg/dL Phosphorus (2.5-4.5) mg/dL Magnesium (1.6-2.3) mg/dL Assessment and Plan Plan: Acute shortness of breath, likely multifactorial, and the patient is post bronchoscopy revealing endobronchial metastases consistent with ovarian cancer. Endobronchial biopsy was done confirming the findings and the patient was started on radiation therapy and she was given a total of 5 sessions of palliative radiation therapy to her chest. Also, a right-sided thoracentesis was done on 11/11/2022 and the fluid was nonmalignant. She is currently on oral prednisone 30 mg by mouth daily. Chest x-ray findings of essentially stable. She is on 2L of oxygen by nasal cannula. Overall rest or status is unchanged. Acute hypoxic respiratory failure currently on 2 L of oxygen by nasal cannula Metastatic ovarian carcinoma, diagnosed in 2008, with recurrence. The patient has diffuse adenopathy, both in the abdominal cavity and thoracic cavity. The patient also has pulmonary metastases Metastatic pulmonary nodules. Pleural effusion, right-sided posterior [place] on 11/11/2022 History of malignant pericardial effusion, status post pericardial window. Atrial flutter with rapid ventricular response, converted to normal sinus rhythm, no anticoagulants Hyponatremia she has with hypertonic saline, most recent sodium level is up to 131 and the patient is currently off the hypertonic saline Acute on chronic kidney injury. Creatinine is at 2.99 with an elevated BUN. The patient continues to have significant amount of edema in the lower extremities bilaterally and diaphoresis limited despite being on Lasix. Nephrology is on the case TPN for nutritional support per oncology and nephrology. Plan Discontinue hypertonic saline Monitor sodium level, level improved Fluid restriction Continue IV Lasix Semsca 30 mg oral given yesterday The patient was given lokelma , K improves ovarian cancer affecting lung parenchyma and endobronchial pulmonary metastases Continue with fluid restriction Continue oral steroids, The Prednisone to 20 Mg by Mouth Daily Titrate FiO2 to maintain a saturation above 90% Continue Levemir insulin for blood sugar control Monitor fluid balance Coordinated work with nephrology We'll continue to follow I had a discussion with the patient. Her prognosis is obviously poor. Options are quite limited. Medication for chemotherapy. Received palliative therapy to her chest. She still wants to be a full code at this point in time although she understands that her condition is not curable and she may not recover from this current event. Further discussions to be done with her at the later stage. The patient seems to be interested in hospice care. She will be having a meeting with hospice today. If all set, she'll be transferred to medical floor. Very poor prognosis
--- NOTE | 2022-11-24 10:29 | P.PN ---
Subjective Progress Note Date: 11/23/22 This is a 57-year-old female patient of Dr. Aguilar who presented with concerns of increased dyspnea. Patient reports that she was having improvement since previous admission with updraft and prednisone treatment but starts developing increased wheezing and shortness breath increasing over the past few days. patient has extensive medical history including ovarian cancer which was diagnosed 14 years ago and has been maintained on chemo therapy. Additional medical history includes previous episode of pericardial effusion with pericardial window. Chest x-ray showing cardiomegaly with mild pulmonary vascular congestion correlate with BMP for congestive heart failure. COPD changes. Chest CTA completed showing no evidence of pulmonary embolism U small bilateral pleural effusions him a new small pericardial effusion new pulmonary vascular congestion and cardiomegaly correlate with serum BNP. This time patient will be admitted patient's BREATHING treatments, IV Lasix, Solu-Medrol. Pulmonary cardiology and oncology services will be consulted. On 11/01/2022 patient was seen and examined on the telemetry floor she is alert and oriented 3 in no apparent distress she reports improvement in her shortness of breath otherwise she denies any complaints there is no fever or chills no headache or dizziness no chest pain no palpitation no nausea or vomiting no abdominal pain no diarrhea no blood in the stools no burning with urination no frequency or urgency and no hematuria On 11/02/2022 patient was seen and examined on the telemetry floor she is reporting improvement in her shortness of breath, otherwise she denies any complaints there is no fever or chills no headache or dizziness no chest pain no palpitation she has occasional cough no nausea or vomiting no abdominal pain no diarrhea no blood in the stools no burning with urination no frequency or urgency no hematuria. On 11/03/2022 patient is alert and oriented 3. Patient continued to show improvement in regards to breathing. Discussed case with pulmonary team patient will continue IV steroids no plans for bronchoscopy at this time. Patient denies chest pain. Patient denies nausea vomiting or diarrhea. Patient denies any urinary frequency. On 11/04/2022 patient was seen and examined on the medical floor, she is alert and oriented 3 in no apparent distress there is no fever or chills no headache or dizziness no chest pain no shortness of breath no cough no nausea or vomiting no abdominal pain no diarrhea and no urinary symptoms. At this time patient is being switched to oral prednisone and oral Lasix, no plans per pulmonary for bronchoscopy this time, patient has not been yet cleared for discharge, will continue to follow closely. 11/05/2022 patient is alert and oriented 3. Patient having increasing shortness of breath and crackles today. Patient has been transitioned to by mouth prednisone will discuss case with pulmonary services for possible bronchoscopy. Patient remains on Lasix. Her vital signs as 7.6, heart rate 98, respiratory rate 20, blood pressure 126/64 95% on 2 L On 11/06/2022 patient was seen and examined on the telemetry floor she is alert and oriented 3 in no apparent distress, she is reporting some improvement in her shortness of breath since yesterday she is still having occasional cough there is no fever or chills no headache or dizziness no chest pain no nausea or vomiting no abdominal pain no diarrhea no blood in the stools no burning with urination no frequency or urgency and no hematuria. Plan per pulmonary is to continue with current management at this time and to proceed with bronchoscopy on Tuesday. On 11/07/2022 patient is alert and oriented 3. Patient reports improvement with shortness of breath. Plans for bronchoscopy tomorrow and patient also had an episode of atrial flutter cardiology services have been consulted. Heart rate has improved. This time patient denies chest pain. Patient denies nausea vomiting or diarrhea. Patient denies any urinary burning or frequency. On 11/08/2022 patient was seen and examined on the medical floor she is alert and oriented 3 in no apparent distress there is no fever or chills no headache or dizziness no chest pain, she is still complaining of shortness of breath and cough no nausea or vomiting no abdominal pain no diarrhea and no urinary symptoms On 11/09/2022 patient was seen and examined on the medical floor she is alert and oriented 3 in no apparent distress, she is complaining of muscle cramps and pain otherwise she denies any complaints there is no fever or chills no headache or dizziness no chest pain, she is still complaining of shortness of breath and cough no nausea or vomiting no abdominal pain no diarrhea and no urinary symptoms. [place] was added for pain, consultation was added for nephrology regarding hyponatremia. On 11/10/2022 patient is alert and oriented 3. Patient having increased wheezing today. Per oncology arranging for possible inpatient palliative radiation to endobronchial bronchial lesions causing near-complete occlusion of the right upper lobe. Patient also being followed by nephrology services for hyponatremia sodium improving slightly to 122. at this time patient denies chest pain. Denies nausea vomiting or diarrhea. Patient denies any urinary burning or frequency. On 11/11/2022 patient is alert and oriented 3. Plans for palliative radiation today and tomorrow for endobronchial lesions. This time patient remains with audible wheezing and shortness of breath. Patient denies chest pain. Patient denies nausea vomiting or diarrhea. Patient denies any urinary burning or frequency. Sodium 126. Dr. Romano's group covering from 11/12/2022- 11/17/2022 On 11/17/2022 patient is alert and oriented 3. Patient has underwent pa lliative radiation. Apparently patient had episodes of tunnel vision and dizziness. Patient was evaluated by neurology services CT of the brain completed showing no acute process. Nephrology services were consulted and MRI and EEG has been ordered. Nephrology services continue to follow her hypo natremia. On 11/18/2022 patient was seen and examined on the medical floor she is alert and oriented 3 in no apparent distress there is no fever or chills no headache or dizziness no chest pain no shortness of breath no cough she has occasional nausea no vomiting no abdominal pain no diarrhea and no urinary symptoms. Patient is complaining of generalized pain, she is also complaining of oral th barone with difficulty swallowing. She has been refusing most of her meals, this was discussed in details with patient, at this time will add appetite stimulant Megace 400 mg suspension once daily. CODE STATUS was discussed again with patient and her , patient wants to be a full code at this time. On 11/19/2022 patient is alert and oriented 3. Patient to get last treatment of radiation today. Patient remains weak with shortness of breath. Patient denies chest pain. Patient's sodium slightly increased 121. Patient does report improvement with taking medication. On 2022 patient was seen and examined on the medical floor, she is alert and oriented 3 in no apparent distress she is complaining of generalized malaise and weakness otherwise no specific complaints sodium is down to 118 nephrology are following there is no fever or chills no headache or dizziness no chest pain no shortness of breath no cough no nausea or vomiting no abdominal pain no diarrhea and no urinary symptoms On 11/21/2022 patient currently sitting up in chair alert and oriented at bedside. Discussed case with nephrology services. If sodium continues to be critically low patient will require transfer to ICU and 3%. Indwelling [place] catheter also ordered to monitor input and output. On 11/22/2022 patient was seen and examined in the ICU she is alert and oriented 3 in no apparent distress she had significant difficulty with low sodium over the last few days she was transferred to ICU and was started on hypertonic saline 3% sodium is up to 122 nephrology and critical care are following patient is feeling anxious she is having shortness of breath with any activity she is maintained on oxygen 3 L via nasal cannula otherwise she denies any complaints at this time On 11/23/2022 patient remains in the ICU. Patient is alert and oriented 3. Patient remains on 3%. Sodium improving. Objective - Vital Signs Vital signs: Vital Signs Temp 96.6 F L 11/23/22 08:00 Pulse 80 11/23/22 08:46 Resp 13 11/23/22 08:00 BP 83/53 11/23/22 08:00 Pulse Ox 97 11/23/22 08:22 FiO2 Intake & Output 11/22/22 11/23/22 11/23/22 18:59 06:59 18:59 Intake Total 0 570 Output Total 390 535 100 Balance -390 35 -100 Weight 95 kg 95 kg Intake: IV 0 330 Sodium Chloride 3%( 0 330 Hypertonic) 500 ml @ 30 mls/hr IV .[id number] ONE Rx #:[id number] Oral 240 Output: Urine 390 535 100 Other: Voiding Method Indwelling Catheter Indwelling Catheter Indwelling Catheter - Exam In general patient is alert and oriented x 3 in no distress HEENT head normocephalic and atraumatic Neck is supple no JVD no goiter no lymphadenopathy no carotid bruit Chest examination is clear to auscultation no crackles no wheezing Cardiac exam reveals regular heart sounds S1 and S2 no gallops no murmurs Abdomen is soft nontender no organomegaly with normal bowel sounds Extremity exam reveals no edema no cyanosis or clubbing Neurological examination reveals no gross focal deficits - Labs CBC & Chem 7: 11/24/22 04:05 11/24/22 04:05 Labs: Abnormal Lab Results - Last 24 Hours (Table) 11/22/22 11/22/22 11/22/22 Range/Units 11:55 12:00 15:56 RBC (3.80-5.40) m/uL Hgb (11.4-16.0) gm/dL Hct (34.0-46.0) % RDW (11.5-15.5) % Plt Count (150-450) k/uL Neutrophils # (1.3-7.7) k/uL Lymphocytes # (1.0-4.8) k/uL Sodium 122 L 121 L (137-145) mmol/L Potassium 5.5 H 5.7 H (3.5-5.1) mmol/L Chloride 86 L 86 L (98-107) mmol/L Carbon Dioxide (22-30) mmol/L BUN 116 H* 118 H* (7-17) mg/dL Creatinine 3.00 H 2.97 H (0.52-1.04) mg/dL Glucose 174 H 185 H (74-99) mg/dL POC Glucose (mg/dL) 187 H (70-110) mg/dL Calcium 8.3 L (8.4-10.2) mg/dL 11/22/22 11/22/22 11/22/22 Range/Units 16:48 20:25 21:21 RBC (3.80-5.40) m/uL Hgb (11.4-16.0) gm/dL Hct (34.0-46.0) % RDW (11.5-15.5) % Plt Count (150-450) k/uL Neutrophils # (1.3-7.7) k/uL Lymphocytes # (1.0-4.8) k/uL Sodium 123 L (137-145) mmol/L Potassium (3.5-5.1) mmol/L Chloride (98-107) mmol/L Carbon Dioxide (22-30) mmol/L BUN (7-17) mg/dL Creatinine (0.52-1.04) mg/dL Glucose (74-99) mg/dL POC Glucose (mg/dL) 202 H 156 H (70-110) mg/dL Calcium (8.4-10.2) mg/dL 11/23/22 11/23/22 11/23/22 Range/Units 01:13 04:04 05:53 RBC 3.38 L (3.80-5.40) m/uL Hgb 11.2 L (11.4-16.0) gm/dL Hct 33.7 L (34.0-46.0) % RDW 18.7 H (11.5-15.5) % Plt Count 104 L (150-450) k/uL Neutrophils # 9.3 H (1.3-7.7) k/uL Lymphocytes # 0.4 L (1.0-4.8) k/uL Sodium 124 L 124 L (137-145) mmol/L Potassium 6.0 H (3.5-5.1) mmol/L Chloride 92 L (98-107) mmol/L Carbon Dioxide 20 L (22-30) mmol/L BUN 131 H* (7-17) mg/dL Creatinine 2.63 H (0.52-1.04) mg/dL Glucose 125 H (74-99) mg/dL POC Glucose (mg/dL) (70-110) mg/dL Calcium (8.4-10.2) mg/dL 11/23/22 Range/Units 06:55 RBC (3.80-5.40) m/uL Hgb (11.4-16.0) gm/dL Hct (34.0-46.0) % RDW (11.5-15.5) % Plt Count (150-450) k/uL Neutrophils # (1.3-7.7) k/uL Lymphocytes # (1.0-4.8) k/uL Sodium (137-145) mmol/L Potassium (3.5-5.1) mmol/L Chloride (98-107) mmol/L Carbon Dioxide (22-30) mmol/L BUN (7-17) mg/dL Creatinine (0.52-1.04) mg/dL Glucose (74-99) mg/dL POC Glucose (mg/dL) 139 H (70-110) mg/dL Calcium (8.4-10.2) mg/dL Assessment and Plan Assessment: 1. Acute on chronic hypoxic respiratory failure 2. Pericardial effusion on computed tomography scan of the chest 3. History of pericardial window 4. History of ovarian cancer with metastatic disease 5. Bronchospasms 6. History of oral thrush 7. Atrial flutter. Cardiology services consulted 8. Status post bronchoscopy on 11/08/2022 findings of new endobronchial lesions with near-complete occlusion of the right upper lobe 9. Hyponatremia per nephrology high suspicion for underlying SIADH. 10. Dizziness and tunnel vision. Neurology services were consulted and MRI EEG has been ordered 11. Positive sputum culture for staph aureus. Maintain on IV cefazolin Pulmonary cardiology service is consulted s/p bronchoscopy on 11/08/2022 radiation to endobronchial lesions on 11/11/2022 and 11/12/2022 MRI and EEG ordered per neurology Repeat labs ordered
--- NOTE | 2022-11-24 10:31 | P.PN ---
Subjective Progress Note Date: 11/24/22 This is a 57-year-old female patient of Dr. Aguilar who presented with concerns of increased dyspnea. Patient reports that she was having improvement since previous admission with updraft and prednisone treatment but starts developing increased wheezing and shortness breath increasing over the past few days. patient has extensive medical history including ovarian cancer which was diagnosed 14 years ago and has been maintained on chemo therapy. Additional medical history includes previous episode of pericardial effusion with pericardial window. Chest x-ray showing cardiomegaly with mild pulmonary vascular congestion correlate with BMP for congestive heart failure. COPD changes. Chest CTA completed showing no evidence of pulmonary embolism U small bilateral pleural effusions him a new small pericardial effusion new pulmonary vascular congestion and cardiomegaly correlate with serum BNP. This time patient will be admitted patient's BREATHING treatments, IV Lasix, Solu-Medrol. Pulmonary cardiology and oncology services will be consulted. On 11/01/2022 patient was seen and examined on the telemetry floor she is alert and oriented 3 in no apparent distress she reports improvement in her shortness of breath otherwise she denies any complaints there is no fever or chills no headache or dizziness no chest pain no palpitation no nausea or vomiting no abdominal pain no diarrhea no blood in the stools no burning with urination no frequency or urgency and no hematuria On 11/02/2022 patient was seen and examined on the telemetry floor she is reporting improvement in her shortness of breath, otherwise she denies any complaints there is no fever or chills no headache or dizziness no chest pain no palpitation she has occasional cough no nausea or vomiting no abdominal pain no diarrhea no blood in the stools no burning with urination no frequency or urgency no hematuria. On 11/03/2022 patient is alert and oriented 3. Patient continued to show improvement in regards to breathing. Discussed case with pulmonary team patient will continue IV steroids no plans for bronchoscopy at this time. Patient denies chest pain. Patient denies nausea vomiting or diarrhea. Patient denies any urinary frequency. On 11/04/2022 patient was seen and examined on the medical floor, she is alert and oriented 3 in no apparent distress there is no fever or chills no headache or dizziness no chest pain no shortness of breath no cough no nausea or vomiting no abdominal pain no diarrhea and no urinary symptoms. At this time patient is being switched to oral prednisone and oral Lasix, no plans per pulmonary for bronchoscopy this time, patient has not been yet cleared for discharge, will continue to follow closely. 11/05/2022 patient is alert and oriented 3. Patient having increasing shortness of breath and crackles today. Patient has been transitioned to by mouth prednisone will discuss case with pulmonary services for possible bronchoscopy. Patient remains on Lasix. Her vital signs as 7.6, heart rate 98, respiratory rate 20, blood pressure 126/64 95% on 2 L On 11/06/2022 patient was seen and examined on the telemetry floor she is alert and oriented 3 in no apparent distress, she is reporting some improvement in her shortness of breath since yesterday she is still having occasional cough there is no fever or chills no headache or dizziness no chest pain no nausea or vomiting no abdominal pain no diarrhea no blood in the stools no burning with urination no frequency or urgency and no hematuria. Plan per pulmonary is to continue with current management at this time and to proceed with bronchoscopy on Tuesday. On 11/07/2022 patient is alert and oriented 3. Patient reports improvement with shortness of breath. Plans for bronchoscopy tomorrow and patient also had an episode of atrial flutter cardiology services have been consulted. Heart rate has improved. This time patient denies chest pain. Patient denies nausea vomiting or diarrhea. Patient denies any urinary burning or frequency. On 11/08/2022 patient was seen and examined on the medical floor she is alert and oriented 3 in no apparent distress there is no fever or chills no headache or dizziness no chest pain, she is still complaining of shortness of breath and cough no nausea or vomiting no abdominal pain no diarrhea and no urinary symptoms On 11/09/2022 patient was seen and examined on the medical floor she is alert and oriented 3 in no apparent distress, she is complaining of muscle cramps and pain otherwise she denies any complaints there is no fever or chills no headache or dizziness no chest pain, she is still complaining of shortness of breath and cough no nausea or vomiting no abdominal pain no diarrhea and no urinary symptoms. [place] was added for pain, consultation was added for nephrology regarding hyponatremia. On 11/10/2022 patient is alert and oriented 3. Patient having increased wheezing today. Per oncology arranging for possible inpatient palliative radiation to endobronchial bronchial lesions causing near-complete occlusion of the right upper lobe. Patient also being followed by nephrology services for hyponatremia sodium improving slightly to 122. at this time patient denies chest pain. Denies nausea vomiting or diarrhea. Patient denies any urinary burning or frequency. On 11/11/2022 patient is alert and oriented 3. Plans for palliative radiation today and tomorrow for endobronchial lesions. This time patient remains with audible wheezing and shortness of breath. Patient denies chest pain. Patient denies nausea vomiting or diarrhea. Patient denies any urinary burning or frequency. Sodium 126. Dr. Romano's group covering from 11/12/2022- 11/17/2022 On 11/17/2022 patient is alert and oriented 3. Patient has underwent pa lliative radiation. Apparently patient had episodes of tunnel vision and dizziness. Patient was evaluated by neurology services CT of the brain completed showing no acute process. Nephrology services were consulted and MRI and EEG has been ordered. Nephrology services continue to follow her hypo natremia. On 11/18/2022 patient was seen and examined on the medical floor she is alert and oriented 3 in no apparent distress there is no fever or chills no headache or dizziness no chest pain no shortness of breath no cough she has occasional nausea no vomiting no abdominal pain no diarrhea and no urinary symptoms. Patient is complaining of generalized pain, she is also complaining of oral th barone with difficulty swallowing. She has been refusing most of her meals, this was discussed in details with patient, at this time will add appetite stimulant Megace 400 mg suspension once daily. CODE STATUS was discussed again with patient and her , patient wants to be a full code at this time. On 11/19/2022 patient is alert and oriented 3. Patient to get last treatment of radiation today. Patient remains weak with shortness of breath. Patient denies chest pain. Patient's sodium slightly increased 121. Patient does report improvement with taking medication. On 2022 patient was seen and examined on the medical floor, she is alert and oriented 3 in no apparent distress she is complaining of generalized malaise and weakness otherwise no specific complaints sodium is down to 118 nephrology are following there is no fever or chills no headache or dizziness no chest pain no shortness of breath no cough no nausea or vomiting no abdominal pain no diarrhea and no urinary symptoms On 11/21/2022 patient currently sitting up in chair alert and oriented at bedside. Discussed case with nephrology services. If sodium continues to be critically low patient will require transfer to ICU and 3%. Indwelling [place] catheter also ordered to monitor input and output. On 11/22/2022 patient was seen and examined in the ICU she is alert and oriented 3 in no apparent distress she had significant difficulty with low sodium over the last few days she was transferred to ICU and was started on hypertonic saline 3% sodium is up to 122 nephrology and critical care are following patient is feeling anxious she is having shortness of breath with any activity she is maintained on oxygen 3 L via nasal cannula otherwise she denies any complaints at this time On 11/23/2022 patient remains in the ICU. Patient is alert and oriented 3. Patient remains on 3%. Sodium improving. On 11/24/2022 patient remains in the ICU patient is alert and oriented 3. Patient reports increased increase strength to lower extremity. Patient has multiple family members at bedside. Plans today to meet with hospice team. Patient has been on 3% drop at night patient to be transferred out of the ICU when bed available. Current vital signs temp 96.1, heart rate 77, respiratory rate 16, blood pressure 90/69 pulse ox of 93% on 2 L Objective - Vital Signs Vital signs: Vital Signs Temp 96.1 F L 11/24/22 08:00 Pulse 77 11/24/22 09:00 Resp 16 11/24/22 09:00 BP 90/69 11/24/22 09:00 Pulse Ox 93 L 11/24/22 09:00 FiO2 Intake & Output 11/23/22 11/24/22 11/24/22 18:59 06:59 18:59 Intake Total 80 765 60 Output Total 545 760 80 Balance -465 5 -20 Weight 95 kg 96.4 kg Intake: IV 80 465 60 Invasive Line 6 80 Mvi, Adult No.4 with Vit 330 60 K 10 ml Trace (Conc-1Ml/ Dose) 1 ml Sodium Chloride 4Meq/ml Vial 32 meq In Amino Acid 4.25%- D10w 1,000 ml @ 30 mls/hr IV .Q24H [facility] Rx#: [id number] Sodium Chloride 3%( 135 Hypertonic) 500 ml @ 30 mls/hr IV .[id number] ONE Rx #:[id number] Oral 0 300 Output: Urine 545 760 80 Other: Voiding Method Indwelling Catheter Indwelling Catheter Indwelling Catheter - Exam In general patient is alert and oriented x 3 in no distress HEENT head normocephalic and atraumatic Neck is supple no JVD no goiter no lymphadenopathy no carotid bruit Chest examination is clear to auscultation no crackles no wheezing Cardiac exam reveals regular heart sounds S1 and S2 no gallops no murmurs Abdomen is soft nontender no organomegaly with normal bowel sounds Extremity exam reveals no edema no cyanosis or clubbing Neurological examination reveals no gross focal deficits - Labs CBC & Chem 7: 11/24/22 04:05 11/24/22 04:05 Labs: Abnormal Lab Results - Last 24 Hours (Table) 11/23/22 11/23/22 11/23/22 Range/Units 09:11 09:11 11:50 RBC (3.80-5.40) m/uL Hgb (11.4-16.0) gm/dL MCV (80.0-100.0) fL RDW (11.5-15.5) % Plt Count (150-450) k/uL Neutrophils # (1.3-7.7) k/uL Lymphocytes # (1.0-4.8) k/uL Macrocytosis Sodium 127 L (137-145) mmol/L Chloride (98-107) mmol/L BUN (7-17) mg/dL Creatinine (0.52-1.04) mg/dL Glucose (74-99) mg/dL POC Glucose (mg/dL) 182 H (70-110) mg/dL Calcium (8.4-10.2) mg/dL Ionized Calcium Tee (4.5-5.3) mg/dL Phosphorus 7.2 H (2.5-4.5) mg/dL Magnesium 2.5 H (1.6-2.3) mg/dL 11/23/22 11/23/22 11/23/22 Range/Units 15:49 16:24 20:45 RBC (3.80-5.40) m/uL Hgb (11.4-16.0) gm/dL MCV (80.0-100.0) fL RDW (11.5-15.5) % Plt Count (150-450) k/uL Neutrophils # (1.3-7.7) k/uL Lymphocytes # (1.0-4.8) k/uL Macrocytosis Sodium 128 L (137-145) mmol/L Chloride (98-107) mmol/L BUN (7-17) mg/dL Creatinine (0.52-1.04) mg/dL Glucose (74-99) mg/dL POC Glucose (mg/dL) 236 H 234 H (70-110) mg/dL Calcium (8.4-10.2) mg/dL Ionized Calcium Tee (4.5-5.3) mg/dL Phosphorus (2.5-4.5) mg/dL Magnesium (1.6-2.3) mg/dL 11/23/22 11/24/22 11/24/22 Range/Units 20:45 00:00 04:05 RBC (3.80-5.40) m/uL Hgb (11.4-16.0) gm/dL MCV (80.0-100.0) fL RDW (11.5-15.5) % Plt Count (150-450) k/uL Neutrophils # (1.3-7.7) k/uL Lymphocytes # (1.0-4.8) k/uL Macrocytosis Sodium 129 L 131 L 131 L (137-145) mmol/L Chloride 95 L (98-107) mmol/L BUN 128 H* (7-17) mg/dL Creatinine 2.99 H (0.52-1.04) mg/dL Glucose 194 H (74-99) mg/dL POC Glucose (mg/dL) (70-110) mg/dL Calcium 7.9 L (8.4-10.2) mg/dL Ionized Calcium Tee 4.2 L (4.5-5.3) mg/dL Phosphorus 6.6 H (2.5-4.5) mg/dL Magnesium 2.6 H (1.6-2.3) mg/dL 11/24/22 11/24/22 11/24/22 Range/Units 04:05 05:59 08:12 RBC 3.18 L (3.80-5.40) m/uL Hgb 10.9 L (11.4-16.0) gm/dL MCV 107.1 H D (80.0-100.0) fL RDW 18.7 H (11.5-15.5) % Plt Count 100 L (150-450) k/uL Neutrophils # 8.4 H (1.3-7.7) k/uL Lymphocytes # 0.4 L (1.0-4.8) k/uL Macrocytosis Marked A Sodium (137-145) mmol/L Chloride (98-107) mmol/L BUN (7-17) mg/dL Creatinine (0.52-1.04) mg/dL Glucose (74-99) mg/dL POC Glucose (mg/dL) 215 H 202 H (70-110) mg/dL Calcium (8.4-10.2) mg/dL Ionized Calcium Tee (4.5-5.3) mg/dL Phosphorus (2.5-4.5) mg/dL Magnesium (1.6-2.3) mg/dL Assessment and Plan Assessment: 1. Acute on chronic hypoxic respiratory failure 2. Pericardial effusion on computed tomography scan of the chest 3. History of pericardial window 4. History of ovarian cancer with metastatic disease 5. Bronchospasms 6. History of oral thrush 7. Atrial flutter. Cardiology services consulted 8. Status post bronchoscopy on 11/08/2022 findings of new endobronchial lesions with near-complete occlusion of the right upper lobe 9. Hyponatremia per nephrology high suspicion for underlying SIADH. 10. Dizziness and tunnel vision. Neurology services were consulted and MRI EEG has been ordered 11. Positive sputum culture for staph aureus. Maintain on IV cefazolin Pulmonary cardiology service is consulted s/p bronchoscopy on 11/08/2022 radiation to endobronchial lesions on 11/11/2022 and 11/12/2022 Patient was started on 3% in the intensive care unit on 11/24/2022 patient currently off 3% sodium improving Repeat labs ordered
[2022-11-24 11:14] LABS: Glucose,Whole Blood 249 mg/dL (70-110)
--- NOTE | 2022-11-24 11:37 | P.PN ---
Progress Note - Text Progress Note Date: 11/24/22 Spoke with patients primary oncologist Dr. Thibodeaux's nurse, Jeanne today. Dr. Thibodeaux accepted admission for transfer to [facility]. Spoke to patient and today in regards to transfer. Patient is stating that she is not sure if she wants to transfer at this time. There is a hospice meeting set up this afternoon with patient and family. They're stating they are not ready for hospice at this time but would like more information. Discussed with patient that if she decides to transfer care to [facility] to call clinic and I will initiate transfer. If not I will f/u in the morning to further discuss transfer vs keeping care here.
[2022-11-24] MEDS: guaiFENesin-DM 100-10MG/5ML 10 ML CUP PO PRN (11:56)
[2022-11-24] MEDS ORDERED: FAT EMULSION 20% 250 ML IV SCH (12:00)
--- NOTE | 2022-11-24 12:38 | P.PN ---
Subjective Patient is seen in follow-up for acute kidney injury and hyponatremia. Sodium level 131 this morning. Off 3%. On IV Lasix. Oral intake remains poor. Edema improving. Denies vomiting or diarrhea. Family present at bedside. Vital signs are stable. General: No acute distress. HEENT: Head exam is unremarkable. LUNGS: No audible rhonchi or wheezes. HEART: Rate and Rhythm are regular. ABDOMEN: Nontender. EXTREMITITES: 2+ edema. Objective - Vital Signs Vital signs: Vital Signs Temp 36.9 F L 11/24/22 12:00 Pulse 75 11/24/22 12:00 Resp 21 11/24/22 12:00 BP 93/67 11/24/22 12:00 Pulse Ox 95 11/24/22 12:00 FiO2 Intake & Output 11/23/22 11/24/22 11/24/22 18:59 06:59 18:59 Intake Total 80 765 180 Output Total 545 760 330 Balance -465 5 -150 Weight 95 kg 96.4 kg Intake: IV 80 465 180 Invasive Line 6 80 Mvi, Adult No.4 with Vit 330 180 K 10 ml Trace (Conc-1Ml/ Dose) 1 ml Sodium Chloride 4Meq/ml Vial 32 meq In Amino Acid 4.25%- D10w 1,000 ml @ 30 mls/hr IV .Q24H [facility] Rx#: [id number] Sodium Chloride 3%( 135 Hypertonic) 500 ml @ 30 mls/hr IV .[id number] ONE Rx #:[id number] Oral 0 300 Output: Urine 545 760 330 Other: Voiding Method Indwelling Catheter Indwelling Catheter Indwelling Catheter - Labs CBC & Chem 7: 11/24/22 04:05 11/24/22 04:05 Labs: Abnormal Lab Results - Last 24 Hours (Table) 11/23/22 11/23/22 11/23/22 Range/Units 09:11 15:49 16:24 RBC (3.80-5.40) m/uL Hgb (11.4-16.0) gm/dL MCV (80.0-100.0) fL RDW (11.5-15.5) % Plt Count (150-450) k/uL Neutrophils # (1.3-7.7) k/uL Lymphocytes # (1.0-4.8) k/uL Macrocytosis Sodium 128 L (137-145) mmol/L Chloride (98-107) mmol/L BUN (7-17) mg/dL Creatinine (0.52-1.04) mg/dL Glucose (74-99) mg/dL POC Glucose (mg/dL) 236 H (70-110) mg/dL Calcium (8.4-10.2) mg/dL Ionized Calcium Tee (4.5-5.3) mg/dL Phosphorus 7.2 H (2.5-4.5) mg/dL Magnesium 2.5 H (1.6-2.3) mg/dL 11/23/22 11/23/22 11/24/22 Range/Units 20:45 20:45 00:00 RBC (3.80-5.40) m/uL Hgb (11.4-16.0) gm/dL MCV (80.0-100.0) fL RDW (11.5-15.5) % Plt Count (150-450) k/uL Neutrophils # (1.3-7.7) k/uL Lymphocytes # (1.0-4.8) k/uL Macrocytosis Sodium 129 L 131 L (137-145) mmol/L Chloride (98-107) mmol/L BUN (7-17) mg/dL Creatinine (0.52-1.04) mg/dL Glucose (74-99) mg/dL POC Glucose (mg/dL) 234 H (70-110) mg/dL Calcium (8.4-10.2) mg/dL Ionized Calcium Tee (4.5-5.3) mg/dL Phosphorus (2.5-4.5) mg/dL Magnesium (1.6-2.3) mg/dL 11/24/22 11/24/22 11/24/22 Range/Units 04:05 04:05 05:59 RBC 3.18 L (3.80-5.40) m/uL Hgb 10.9 L (11.4-16.0) gm/dL MCV 107.1 H D (80.0-100.0) fL RDW 18.7 H (11.5-15.5) % Plt Count 100 L (150-450) k/uL Neutrophils # 8.4 H (1.3-7.7) k/uL Lymphocytes # 0.4 L (1.0-4.8) k/uL Macrocytosis Marked A Sodium 131 L (137-145) mmol/L Chloride 95 L (98-107) mmol/L BUN 128 H* (7-17) mg/dL Creatinine 2.99 H (0.52-1.04) mg/dL Glucose 194 H (74-99) mg/dL POC Glucose (mg/dL) 215 H (70-110) mg/dL Calcium 7.9 L (8.4-10.2) mg/dL Ionized Calcium Tee 4.2 L (4.5-5.3) mg/dL Phosphorus 6.6 H (2.5-4.5) mg/dL Magnesium 2.6 H (1.6-2.3) mg/dL 11/24/22 11/24/22 Range/Units 08:12 11:13 RBC (3.80-5.40) m/uL Hgb (11.4-16.0) gm/dL MCV (80.0-100.0) fL RDW (11.5-15.5) % Plt Count (150-450) k/uL Neutrophils # (1.3-7.7) k/uL Lymphocytes # (1.0-4.8) k/uL Macrocytosis Sodium (137-145) mmol/L Chloride (98-107) mmol/L BUN (7-17) mg/dL Creatinine (0.52-1.04) mg/dL Glucose (74-99) mg/dL POC Glucose (mg/dL) 202 H 249 H (70-110) mg/dL Calcium (8.4-10.2) mg/dL Ionized Calcium Tee (4.5-5.3) mg/dL Phosphorus (2.5-4.5) mg/dL Magnesium (1.6-2.3) mg/dL Assessment and Plan Plan: Assessment: 1. Hyponatremia, hypervolemic. 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 Sodium level 131 this morning. Urine osmolality 535. Repeat urine osmolality 323 and urine sodium less than 20. TSH 7.5 and free T4 normal. Better. 2. Metastatic ovarian cancer. 3. Acute kidney injury secondary to ATN secondary to hypotension. Creatinine 2.99 today. Urine output 50-75 mL an hour. 4. Acute hypoxic respiratory failure. History of pericardial window and also underwent right thoracentesis with 950 cc drained this admission. 5. Hyperkalemia secondary to acute kidney injury and acidosis. Hemolyzed sample. Normal today. 6. A flutter. Now in sinus rhythm. Seen by cardiology. 7. Edema. Improving with diuresis. 8. Metabolic acidosis secondary to acute kidney injury. On oral bicarbonate. Better. Plan: Maintain fluid restriction. Maintain IV Lasix. Encouraged oral intake. Prognosis guarded. Meeting with hospice today.
[2022-11-24 14:24] VITALS: BMI 34.2
[2022-11-24 15:31] LABS: ALT 280 U/L (4-34); AST 360 U/L (14-36); Albumin 2.9 g/dL (3.5-5.0); Alkaline Phosphatase 495 U/L (38-126); Anion Gap 11 mmol/L; Calcium 7.9 mg/dL (8.4-10.2); Carbon Dioxide 24 mmol/L (22-30); Chloride 93 mmol/L (98-107); Glucose 221 mg/dL (74-99); Potassium 4.5 mmol/L (3.5-5.1); Sodium 128 mmol/L (137-145); Total Bilirubin 1.2 mg/dL (0.2-1.3); Total Protein 5.3 g/dL (6.3-8.2)
[2022-11-24 15:37] LABS: African American GFR (CKD) 21 (>60 ml/min/1.73 sqM); Non-African American GFR(CKD) 18 (>60 ml/min/1.73 sqM)
[2022-11-24 15:42] LABS: Blood Urea Nitrogen 133 mg/dL (7-17)
[2022-11-24 16:37] LABS: Glucose,Whole Blood 236 mg/dL (70-110)
[2022-11-24] MEDS: 1: MVI, ADULT NO.4 WITH VIT K 10 ML, TRACE (CONC-1ML/DOSE) 1 ML, SODIUM CHLORIDE 4MEQ/ML IV SCH ×5 (18:13)
[2022-11-24] MEDS ORDERED: BENZOCAINE/MENTHOL LOZENG 1 EACH LOZENGE MUCOUS MEM PRN (20:16)
[2022-11-24 20:38] LABS: Glucose,Whole Blood 213 mg/dL (70-110)
[2022-11-24] MEDS: INSULIN DETEMIR (LEVEMIR) 100 UNIT/ML SYR SQ SCH (21:15)
[2022-11-24] MEDS: SENNOSIDES-DOCUSATE SODIUM 1 EACH TAB PO SCH (21:16)
[2022-11-24] MEDS: ZYRTEC 10MG TABLET PO SCH (21:17)
[2022-11-24] MEDS: ALPRAZolam 0.25 MG TAB PO PRN (21:23)
[2022-11-25] MEDS: IPRATROPIUM-ALBUTEROL 3 ML NEB INHALATION SCH ×5 (00:23→15:10)
[2022-11-25] MEDS: ONDANSETRON 4 MG/2 ML VIAL IVP PRN ×3 (03:11→17:05)
[2022-11-25] MEDS: HYDROcodone/APAP 5-325MG 1 EACH TAB PO PRN (03:11)
[2022-11-25 06:00] LABS: Anion Gap 10 mmol/L; Calcium 7.9 mg/dL (8.4-10.2); Carbon Dioxide 23 mmol/L (22-30); Chloride 93 mmol/L (98-107); Glucose 234 mg/dL (74-99); Magnesium 2.4 mg/dL (1.6-2.3); Phosphorus 5.7 mg/dL (2.5-4.5); Potassium 4.3 mmol/L (3.5-5.1); Sodium 126 mmol/L (137-145)
[2022-11-25 06:06] LABS: African American GFR (CKD) 20 (>60 ml/min/1.73 sqM); Non-African American GFR(CKD) 18 (>60 ml/min/1.73 sqM)
[2022-11-25 06:19] LABS: Blood Urea Nitrogen 134 mg/dL (7-17)
[2022-11-25 06:45] LABS: Glucose,Whole Blood 267 mg/dL (70-110)
[2022-11-25] MEDS: INSULIN ASPART (NovoLOG) 100 UNIT/ML VIAL SQ SCH ×6 (07:13→16:29)
[2022-11-25] MEDS: MIDODRINE 5 MG TAB PO SCH ×3 (07:13→16:41)
[2022-11-25] MEDS: 1: MVI, ADULT NO.4 WITH VIT K 10 ML, TRACE (CONC-1ML/DOSE) 1 ML, SODIUM CHLORIDE 4MEQ/ML IV SCH ×5 (07:14)
[2022-11-25] MEDS: BUDESONIDE 1 MG/2 ML NEBU INHALATION SCH (08:52)
[2022-11-25] MEDS: FORMOTEROL FUMARATE 20 MCG/2 ML NEBU INHALATION SCH (08:52)
--- NOTE | 2022-11-25 09:52 | P.PN ---
Subjective Progress Note Date: 11/25/22 On today's evaluation of 11/22/2022 on seeing the patient for a follow-up. Patient is known to me from previous evaluations. 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 Stock Lifter on the case. The patient is currently on a combination of demeclocycline and talvaptan and the medication was discontinued and the patient was given hypertonic saline with a sodium level of 116 and follow-up sodium level instead 122. Meanwhile, the patient was also given lokelma 10 g for a potassium level of 5.6 and awaiting follow-up levels. BUN is at 113, creatinine is at 2.7 and the patient is a component of an acute kidney injury. Overall respiratory status remains unchanged. She remains on oxygen at 4 L pH she received radiation therapy to her chest by radiation oncology a total of 5 sessions. She remains on prednisone. She was cultured to have staph aureus in her sputum on an earlier bronchoscope and this was treated and currently she is on no antibacterial agents. She is taking oral Diflucan. She remains on prednisone 30 mg by mouth daily. She is also taken Levemir insulin 6 units at bedtime and 4 units with meals of [employer]. Oncology is on the case for now. 11/23/2022, I'm seeing the patient for a follow-up. Condition is essentially the same in terms of breathing. Short of breath, oxygen dependent, has a congested cough, unable to bring up much sputum and it is essentially related to her extensive pulmonary metastases. At the same time, the patient has persi stent hyponatremia secondary to SIADH. The morning sodium level is at 124. Hypertonic saline was started again at the rate of 30 mL an hour, 3% saline. Potassium levels at 6. The BUN is 131 with a creatinine of 2.6. The patient is on IV Lasix. The fluid balance is -3 on 55 mL over the past 24 hours and urine output is adequate for now. The ribs was at 10.4 with a hemoglobin 11.2 and a platelet count of 104. The calcium level is at 8.5. The serum albumin level was at 3.2 from yesterday. The repeat chest x-ray from today shows cardiomegaly, but the pleural effusions and the patient is on oxygen at 4 L nasal cannula with a pulse ox of 97%. She's getting progressively more discouraged and distressed and frustrated. She wants to still be a full code. Nephrology consider TPN on her. The final decision has not been done as the patient is not meeting her caloric requirements and her oral intake is quite diminished. Not a candidate for chemotherapy. He received palliative therapy with radiation to her chest. 11/24/2022, the patient is essentially the same. No issues with pain. She has chronic shortness of breath cough. She has pulmonary metastases from ovarian cancer as stated earlier. She has improvement in her sodium level is up to 131 and the patient was taken off the hypertonic saline. She still on Lasix and she is receiving a dose of 40 mg IV every 12 hours. The fluid balance is -460 mL and the patient continues to have significant amount of edema lower extremities. The BUN is at 128 with a creatinine of 2.99. Her sodium at 131 with a potassium level of 4.3. The white cycles of 9.3 with a hemoglobin of 10.9. She is on oxygen and she is currently on 2 L with a pulse ox of 93%. She remains on bronchodilators. She remains on Levemir insulin. She is on Novo[employer] sinus Coverage. She was started on TPN yesterday via PICC line. This was suggested by nephrology due to her poor oral intake. TPN is running at the rate of 30 mL an hour. She remains on prednisone 30 mg by mouth daily. 11/25/2022, no change in her condition. She is a bit more stable today. She did have some increased cough overnight. She is feeling weak and quite debilitated and she is obviously getting progressively more depressed. She has a sodium level of 126. TPN is running. She is on Levemir insulin. She is on NovoLog sliding scale coverage. She is on diuretics. She is also on oxygen at 5 L.The sodium level is at 126, potassium 4.3, BUN is 1 with a creatinine of 0.8. CBC is pending from today. She has been transitioned to a DNR/DNI CODE STATUS. Objective - Vital Signs Vital signs: Vital Signs Temp 97.4 F L 11/25/22 03:00 Pulse 80 11/25/22 09:18 Resp 21 11/25/22 03:00 BP 94/62 11/25/22 03:00 Pulse Ox 98 11/25/22 09:10 FiO2 Intake & Output 11/24/22 11/25/22 11/25/22 18:59 06:59 18:59 Intake Total 1030 840 Output Total 655 400 Balance 375 440 Weight 96.4 kg Intake: IV 480 840 Mvi, Adult No.4 with Vit 480 840 K 10 ml Trace (Conc-1Ml/ Dose) 1 ml Sodium Chloride 4Meq/ml Vial 32 meq In Amino Acid 4.25%- D10w 1,000 ml @ 30 mls/hr IV .Q[facility]H [facility] Rx#: [id number] Oral 300 Tube Feeding 250 Output: Urine 655 400 Other: Voiding Method Indwelling Catheter Indwelling Catheter - Exam No acute distress, oriented 3. Currently on 5 L. No conversational dyspnea or use of accessory muscles. The patient is currently on 5 L of oxygen by nasal cannula HEENT examination is grossly unremarkable. Mucous membranes are moist. No oral lesions. Neck supple. Full range of motion. No adenopathy thyromegaly or neck vein distention. Cardiovascular examination reveals regular rhythm rate. S1-S2 normal. No S3 or S4. No discernible murmur noted. Lungs reveal scattered rhonchi. No wheezes or crackles. Breath sounds equal bilaterally. Crackles are appreciated in lung bases bilaterally Abdomen soft bowel sounds are heard. No masses or tenderness. Extremities are intact. No cyanosis or clubbing. Trace lower extremity edema. Skin is without rash or lesion. Neurologic examination is brief but nonfocal. - Labs CBC & Chem 7: 11/24/22 04:05 11/25/22 05:35 Labs: Abnormal Lab Results - Last 24 Hours (Table) 11/24/22 11/24/22 11/24/22 Range/Units 11:13 15:15 16:36 Sodium 128 L (137-145) mmol/L Chloride 93 L (98-107) mmol/L BUN 133 H* (7-17) mg/dL Creatinine 2.85 H (0.52-1.04) mg/dL Glucose 221 H (74-99) mg/dL POC Glucose (mg/dL) 249 H 236 H (70-110) mg/dL Calcium 7.9 L (8.4-10.2) mg/dL Phosphorus (2.5-4.5) mg/dL Magnesium (1.6-2.3) mg/dL AST 360 H (14-36) U/L ALT 280 H (4-34) U/L Alkaline Phosphatase 495 H (38-126) U/L Total Protein 5.3 L (6.3-8.2) g/dL Albumin 2.9 L (3.5-5.0) g/dL 11/24/22 11/25/22 11/25/22 Range/Units 20:38 05:35 06:43 Sodium 126 L (137-145) mmol/L Chloride 93 L (98-107) mmol/L BUN 134 H* (7-17) mg/dL Creatinine 2.87 H (0.52-1.04) mg/dL Glucose 234 H (74-99) mg/dL POC Glucose (mg/dL) 213 H 267 H (70-110) mg/dL Calcium 7.9 L (8.4-10.2) mg/dL Phosphorus 5.7 H (2.5-4.5) mg/dL Magnesium 2.4 H (1.6-2.3) mg/dL AST (14-36) U/L ALT (4-34) U/L Alkaline Phosphatase (38-126) U/L Total Protein (6.3-8.2) g/dL Albumin (3.5-5.0) g/dL Assessment and Plan Plan: Acute shortness of breath, likely multifactorial, and the patient is post bronchoscopy revealing endobronchial metastases consistent with ovarian cancer. Endobronchial biopsy was done confirming the findings and the patient was started on radiation therapy and she was given a total of 5 sessions of palliative radiation therapy to her chest. Also, a right-sided thoracentesis was done on 11/11/2022 and the fluid was nonmalignant. She is currently on oral prednisone 30 mg by mouth daily. Chest x-ray findings of essentially stable. She is on 3L of oxygen by nasal cannula. Overall rest or status is unchanged. Acute hypoxic respiratory failure currently on 5 L of oxygen by nasal cannula Metastatic ovarian carcinoma, diagnosed in 2008, with recurrence. The patient has diffuse adenopathy, both in the abdominal cavity and thoracic cavity. The patient also has pulmonary metastases Metastatic pulmonary nodules. Pleural effusion, right-sided posterior [place] on 11/11/2022 History of malignant pericardial effusion, status post pericardial window. Atrial flutter with rapid ventricular response, converted to normal sinus rhythm, no anticoagulants Hyponatremia she has with hypertonic saline, most recent sodium level is 126 Acute on chronic kidney injury. TPN for nutritional support per oncology and nephrology. Plan Very poor prognosis DNR/DNI CODE STATUS Oxygen 5 L/m nasal cannula Continue IV Lasix Management of hyponatremia per nephrology ovarian cancer affecting lung parenchyma and endobronchial pulmonary metastases Continue with fluid restriction Continue Prednisone to 20 Mg by Mouth Daily Titrate FiO2 to maintain a saturation above 90% Continue Levemir insulin for blood sugar control Monitor fluid balance Coordinated work with nephrology We'll continue to follow I had a discussion with the patient. Her prognosis is obviously poor. Options are quite limited. Medication for chemotherapy. Received palliative therapy to her chest. She still wants to be a full code at this point in time although she understands that her condition is not curable and she may not recover from this current event. Further discussions to be done with her at the later stage. The patient seems to be interested in hospice care. She will be having a meeting with hospice today. If all set, she'll be transferred to medical floor. The final decision regarding possible been made. The patient has Very poor prognosis
[2022-11-25 10:21] VITALS: RESP 26
[2022-11-25] MEDS ORDERED: TOLVAPTAN 15 MG TABLET PO SCH (11:00)
--- NOTE | 2022-11-25 11:43 | P.PN ---
Subjective Patient is seen in follow-up for acute kidney injury and hyponatremia. Sodium level 126 this morning. Off 3%. On IV Lasix. Oral intake remains poor. Denies vomiting or diarrhea. Family present at bedside. Planning on going home on hospice. Vital signs are stable. General: No acute distress. HEENT: Head exam is unremarkable. LUNGS: No audible rhonchi or wheezes. HEART: Rate and Rhythm are regular. ABDOMEN: Nontender. EXTREMITITES: 2+ edema. Objective - Vital Signs Vital signs: Vital Signs Temp 96.2 F L 11/25/22 08:00 Pulse 81 11/25/22 10:00 Resp 26 H 11/25/22 10:00 BP 88/64 11/25/22 08:00 Pulse Ox 95 11/25/22 10:00 FiO2 Intake & Output 11/24/22 11/25/22 11/25/22 18:59 06:59 18:59 Intake Total 1030 840 0 Output Total 655 400 Balance 375 440 0 Weight 96.4 kg 96.4 kg Intake: IV 480 840 Mvi, Adult No.4 with Vit 480 840 K 10 ml Trace (Conc-1Ml/ Dose) 1 ml Sodium Chloride 4Meq/ml Vial 32 meq In Amino Acid 4.25%- D10w 1,000 ml @ 30 mls/hr IV .Q24H [facility] Rx#: [id number] Oral 300 0 Tube Feeding 250 Output: Urine 655 400 Other: Voiding Method Indwelling Catheter Indwelling Catheter Indwelling Catheter - Labs CBC & Chem 7: 11/24/22 04:05 11/25/22 05:35 Labs: Abnormal Lab Results - Last 24 Hours (Table) 11/24/22 11/24/22 11/24/22 Range/Units 15:15 16:36 20:38 Sodium 128 L (137-145) mmol/L Chloride 93 L (98-107) mmol/L BUN 133 H* (7-17) mg/dL Creatinine 2.85 H (0.52-1.04) mg/dL Glucose 221 H (74-99) mg/dL POC Glucose (mg/dL) 236 H 213 H (70-110) mg/dL Calcium 7.9 L (8.4-10.2) mg/dL Phosphorus (2.5-4.5) mg/dL Magnesium (1.6-2.3) mg/dL AST 360 H (14-36) U/L ALT 280 H (4-34) U/L Alkaline Phosphatase 495 H (38-126) U/L Total Protein 5.3 L (6.3-8.2) g/dL Albumin 2.9 L (3.5-5.0) g/dL 11/25/22 11/25/22 Range/Units 05:35 06:43 Sodium 126 L (137-145) mmol/L Chloride 93 L (98-107) mmol/L BUN 134 H* (7-17) mg/dL Creatinine 2.87 H (0.52-1.04) mg/dL Glucose 234 H (74-99) mg/dL POC Glucose (mg/dL) 267 H (70-110) mg/dL Calcium 7.9 L (8.4-10.2) mg/dL Phosphorus 5.7 H (2.5-4.5) mg/dL Magnesium 2.4 H (1.6-2.3) mg/dL AST (14-36) U/L ALT (4-34) U/L Alkaline Phosphatase (38-126) U/L Total Protein (6.3-8.2) g/dL Albumin (3.5-5.0) g/dL Assessment and Plan Plan: Assessment: 1. Hyponatremia, hypervolemic. 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 Sodium level 126 this morning. Urine osmolality 535. Repeat urine osmolality 323 and urine sodium less than 20. TSH 7.5 and free T4 normal. Better. 2. Metastatic ovarian cancer. 3. Acute kidney injury secondary to ATN secondary to hypotension. Creatinine stable at 2.87 today. Nonoliguric. 4. Acute hypoxic respiratory failure. History of pericardial window and also underwent right thoracentesis with 950 cc drained this admission. 5. Hyperkalemia secondary to acute kidney injury and acidosis. Hemolyzed sample. Normal today. 6. A flutter. Now in sinus rhythm. Seen by cardiology. 7. Edema. Improving with diuresis. 8. Metabolic acidosis secondary to acute kidney injury. On oral bicarbonate. Stable. Plan: Maintain fluid restriction. Change IV Lasix to oral torsemide 40 mg once daily. Add sodium chloride tabs. Samsca 30 mg twice daily. Encouraged oral intake. Prognosis guarded. Planning on going home on hospice. Discussed with oncology team.
[2022-11-25] MEDS: SODIUM BICARBONATE TAB 650 MG TAB PO SCH (11:45)
[2022-11-25] MEDS: METOPROLOL TARTRATE 12.5 MG TAB PO SCH (11:45)
[2022-11-25] MEDS: SODIUM CHLORIDE TAB 1 GM TAB PO SCH ×2 (11:46→16:41)
[2022-11-25] MEDS: FAMOTIDINE 20 MG TAB PO SCH (11:46)
[2022-11-25] MEDS: predniSONE 10 MG TAB PO SCH (11:46)
[2022-11-25] MEDS: AMIODARONE 200 MG TAB PO SCH (11:46)
[2022-11-25] MEDS: HEPARIN SODIUM,PORCINE/PF 5,000 UNIT/0.5 ML SYRINGE SQ SCH (11:47)
[2022-11-25] MEDS: FUROSEMIDE 10 MG/ML 4 ML VIAL IV SCH (11:49)
[2022-11-25] MEDS: FLUTICASONE 50MCG/SPRAY NASAL 16GM EA NOSTRIL SCH (11:49)
[2022-11-25] MEDS: BENZONATATE 100 MG CAP PO SCH ×2 (11:50→16:41)
[2022-11-25] MEDS: MEGESTROL 400 MG/10 ML CUP PO SCH (11:51)
[2022-11-25] MEDS: FLUCONAZOLE 150 MG TAB PO SCH (11:51)
[2022-11-25 11:56] LABS: Glucose,Whole Blood 280 mg/dL (70-110)
--- NOTE | 2022-11-25 14:53 | P.PN ---
Subjective Progress Note Date: 11/25/22 Principal diagnosis: metastatic ovarian cancer Yesterday, we spoke with patients primary oncologist Dr. Thibodeaux's nurse, Jeanne. Dr. Thibodeaux accepted admission for transfer to [facility]. However, after speaking with patient and yesterday in regards to transfer, they were unsure if she wanted to transfer care. Hospice meeting was held yesterday. Family was at bedside at today's visit. Patient stated that she would like to go home with hospice care so she can be home and spend time with her loved ones. All patients and family questions and concerns were answered to the best of our ability. Discussed this with patient's nurse who stated she would call social work, so at home hospice care can be arranged. We will call Dr. Thibodeaux's office and cancel transfer. Objective - Vital Signs Vital signs: Vital Signs Temp 96.2 F L 11/25/22 08:00 Pulse 80 11/25/22 11:51 Resp 26 H 11/25/22 10:00 BP 88/64 11/25/22 08:00 Pulse Ox 95 11/25/22 10:00 FiO2 Intake & Output 11/24/22 11/25/22 11/25/22 18:59 06:59 18:59 Intake Total 8772 618 9343 Output Total 655 400 Balance 764 200 0982 Weight 96.4 kg 96.4 kg Intake: IV 480 840 Mvi, Adult No.4 with Vit 480 840 K 10 ml Trace (Conc-1Ml/ Dose) 1 ml Sodium Chloride 4Meq/ml Vial 32 meq In Amino Acid 4.25%- D10w 1,000 ml @ 30 mls/hr IV .Q24H [facility] Rx#: [id number] Oral 300 1200 Tube Feeding 250 Output: Urine 655 400 Other: Voiding Method Indwelling Catheter Indwelling Catheter Indwelling Catheter - Constitutional General appearance: Present: average body habitus, no acute distress - Respiratory Details: breathing even and unlabored - Psychiatric Psychiatric: Present: A&O x's 3, appropriate affect, intact judgment & insight - Labs CBC & Chem 7: 11/24/22 04:05 11/25/22 05:35 Labs: Abnormal Lab Results - Last 24 Hours (Table) 11/24/22 11/24/22 11/24/22 Range/Units 15:15 16:36 20:38 Sodium 128 L (137-145) mmol/L Chloride 93 L (98-107) mmol/L BUN 133 H* (7-17) mg/dL Creatinine 2.85 H (0.52-1.04) mg/dL Glucose 221 H (74-99) mg/dL POC Glucose (mg/dL) 236 H 213 H (70-110) mg/dL Calcium 7.9 L (8.4-10.2) mg/dL Phosphorus (2.5-4.5) mg/dL Magnesium (1.6-2.3) mg/dL AST 360 H (14-36) U/L ALT 280 H (4-34) U/L Alkaline Phosphatase 495 H (38-126) U/L Total Protein 5.3 L (6.3-8.2) g/dL Albumin 2.9 L (3.5-5.0) g/dL 11/25/22 11/25/22 11/25/22 Range/Units 05:35 06:43 11:55 Sodium 126 L (137-145) mmol/L Chloride 93 L (98-107) mmol/L BUN 134 H* (7-17) mg/dL Creatinine 2.87 H (0.52-1.04) mg/dL Glucose 234 H (74-99) mg/dL POC Glucose (mg/dL) 267 H 280 H (70-110) mg/dL Calcium 7.9 L (8.4-10.2) mg/dL Phosphorus 5.7 H (2.5-4.5) mg/dL Magnesium 2.4 H (1.6-2.3) mg/dL AST (14-36) U/L ALT (4-34) U/L Alkaline Phosphatase (38-126) U/L Total Protein (6.3-8.2) g/dL Albumin (3.5-5.0) g/dL Assessment and Plan (1) Acute bronchospasm Current Visit: Yes Status: Acute Priority: High Code(s): J98.01 - ACUTE BRONCHOSPASM SNOMED Code(s): 75581750046709 (2) Primary malignant neoplasm of ovary with widespread metastatic disease Current Visit: Yes Status: Chronic Priority: High Code(s): C56.9 - MALIGNANT NEOPLASM OF UNSPECIFIED OVARY; C80.0 - DISSEMINATED MALIGNANT NEOPLASM, UNSPECIFIED SNOMED Code(s): 848710914 (3) Macrocytic anemia Current Visit: Yes Status: Chronic Priority: Medium Code(s): D53.9 - NUTRITIONAL ANEMIA, UNSPECIFIED SNOMED Code(s): 56463612 Plan: Hyponatremia -SIADH from malignancy -Nephrology has been following -Spoke with nephrology at todays visit. Plan to send patient home on Samsca, furosemide and sodium tablets Metastatic ovarian adenocarcinoma: -Yesterday, we spoke with patients primary oncologist Dr. Thibodeaux's nurse, Jeanne. Dr. Thibodeaux accepted admission for transfer to [facility]. However, after speaking with patient and yesterday in regards to transfer, they were unsure if she wanted to transfer care. Hospice meeting was held yesterday. -Unfortunately, due to patient's disease progression and decline, patient and family has decided to go home on hospice. We discussed this with patient and family, and found this to be a reasonable decision, as she would not be able to tolerate systemic treatment in her current condition, as this would likely cause more harm than potential benefits. All the patients and family questions and concerns were answered to the best of our ability. Discussed this with patient's nurse who stated she would call social work, so at home hospice care can be arranged. We will call Dr. Thibodeaux's office and cancel transfer. Discussed with patient and family, if there is anything additional our service can assist with, please do not hesitate to call our office
[2022-11-25] MEDS: ALPRAZolam 0.25 MG TAB PO PRN (16:41)
--- NOTE | 2022-11-25 17:04 | P.DS ---
Providers Date of admission: 10/30/22 15:44 Expected date of discharge: 11/25/22 Attending physician: Narciso Palomo Consults: 10/30/22 15:44 Consult Physician Urgent Consulting Provider: [facility] Consult Reason/Comments: Pericardial effusion, pulmonary edema Do you want consulting provider notified?: Yes Consult Physician Urgent Consulting Provider: Jonathan Garland Consult Reason/Comments: Bronchospasms Do you want consulting provider notified?: Yes 10/31/22 10:15 Consult Physician Routine Consulting Provider: Enrique Sierra Consult Reason/Comments: established patient Do you want consulting provider notified?: Yes 11/05/22 10:55 Consult Physician Urgent Consulting Provider: John Kaur Consult Reason/Comments: ILD Do you want consulting provider notified?: Yes 11/08/22 13:24 Consult Physician Routine Consulting Provider: Kt Love Consult Reason/Comments: Metastatic ovarian cancer to the lungs Do you want consulting provider notified?: Yes 11/09/22 09:51 Consult Physician Routine Consulting Provider: Dagmar Nolen Consult Reason/Comments: Hyponatrema Do you want consulting provider notified?: Yes 11/09/22 15:19 Consult Physician Routine Consulting Provider: Kt Love Consult Reason/Comments: metastatic ovarian ca,new findings on bronchoscopy Do you want consulting provider notified?: Yes 11/09/22 22:08 Consult Physician Routine Consulting Provider: Patel Richey Consult Reason/Comments: Metastatic ovarian cancer and new endobronchial lesions causing obstruction Do you want consulting provider notified?: Yes, Notify in am 11/10/22 11:33 Consult Physician Routine Consulting Provider: Patel Richey Consult Reason/Comments: Metastatic ovarian cancer with endobronchial metastasis. Do you want consulting provider notified?: Yes 11/16/22 10:43 Consult Physician Routine Consulting Provider: uAbrey Garland Consult Reason/Comments: vision changes Do you want consulting provider notified?: Yes Primary care physician: Flower Aguilar Hospital Course: Diagnosis on discharge: 1. Acute on chronic hypoxic respiratory failure 2. Pericardial effusion on computed tomography scan of the chest 3. History of pericardial window 4. History of ovarian cancer with metastatic disease 5. Bronchospasms 6. History of oral thrush 7. Atrial flutter. Cardiology services consulted 8. Status post bronchoscopy on 11/08/2022 findings of new endobronchial lesions with near-complete occlusion of the right upper lobe 9. Hyponatremia per nephrology high suspicion for underlying SIADH. 10. Dizziness and tunnel vision. Neurology services were consulted and MRI EEG has been ordered 11. Positive sputum culture for staph aureus. Maintain on IV cefazolin Hospital course: This is a 57-year-old female patient of Dr. Aguilar who presented with concerns of increased dyspnea. Patient reports that she was having improvement since previous admission with updraft and prednisone treatment but starts developing increased wheezing and shortness breath increasing over the past few days. patient has extensive medical history including ovarian cancer which was diagnosed 14 years ago and has been maintained on chemo therapy. Additional medical history includes previous episode of pericardial effusion with pericardial window. Chest x-ray showing cardiomegaly with mild pulmonary vascular congestion correlate with BMP for congestive heart failure. COPD changes. Chest CTA completed showing no evidence of pulmonary embolism U small bilateral pleural effusions him a new small pericardial effusion new pulmonary vascular congestion and cardiomegaly correlate with serum BNP. This time patient will be admitted patient's BREATHING treatments, IV Lasix, Solu-Medrol. Pulmonary cardiology and oncology services will be consulted. On 11/01/2022 patient was seen and examined on the telemetry floor she is alert and oriented 3 in no apparent distress she reports improvement in her shortness of breath otherwise she denies any complaints there is no fever or chills no headache or dizziness no chest pain no palpitation no nausea or vomiting no abdominal pain no diarrhea no blood in the stools no burning with urination no frequency or urgency and no hematuria On 11/02/2022 patient was seen and examined on the telemetry floor she is reporting improvement in her shortness of breath, otherwise she denies any complaints there is no fever or chills no headache or dizziness no chest pain no palpitation she has occasional cough no nausea or vomiting no abdominal pain no diarrhea no blood in the stools no burning with urination no frequency or urgency no hematuria. On 11/03/2022 patient is alert and oriented 3. Patient continued to show improvement in regards to breathing. Discussed case with pulmonary team patient will continue IV steroids no plans for bronchoscopy at this time. Patient denies chest pain. Patient denies nausea vomiting or diarrhea. Patient denies any urinary frequency. On 11/04/2022 patient was seen and examined on the medical floor, she is alert and oriented 3 in no apparent distress there is no fever or chills no headache or dizziness no chest pain no shortness of breath no cough no nausea or vomiting no abdominal pain no diarrhea and no urinary symptoms. At this time patient is being switched to oral prednisone and oral Lasix, no plans per pulmonary for bronchoscopy this time, patient has not been yet cleared for discharge, will continue to follow closely. 11/05/2022 patient is alert and oriented 3. Patient having increasing shortness of breath and crackles today. Patient has been transitioned to by mouth prednisone will discuss case with pulmonary services for possible bronchoscopy. Patient remains on Lasix. Her vital signs as 7.6, heart rate 98, respiratory rate 20, blood pressure 126/64 95% on 2 L On 11/06/2022 patient was seen and examined on the telemetry floor she is alert and oriented 3 in no apparent distress, she is reporting some improvement in her shortness of breath since yesterday she is still having occasional cough there is no fever or chills no headache or dizziness no chest pain no nausea or vomiting no abdominal pain no diarrhea no blood in the stools no burning with urination no frequency or urgency and no hematuria. Plan per pulmonary is to continue with current management at this time and to proceed with bronchoscopy on Tuesday. On 11/07/2022 patient is alert and oriented 3. Patient reports improvement with shortness of breath. Plans for bronchoscopy tomorrow and patient also had an episode of atrial flutter cardiology services have been consulted. Heart rate has improved. This time patient denies chest pain. Patient denies nausea vomiting or diarrhea. Patient denies any urinary burning or frequency. On 11/08/2022 patient was seen and examined on the medical floor she is alert and oriented 3 in no apparent distress there is no fever or chills no headache or dizziness no chest pain, she is still complaining of shortness of breath and cough no nausea or vomiting no abdominal pain no diarrhea and no urinary symptoms On 11/09/2022 patient was seen and examined on the medical floor she is alert and oriented 3 in no apparent distress, she is complaining of muscle cramps and pain otherwise she denies any complaints there is no fever or chills no headache or dizziness no chest pain, she is still complaining of shortness of breath and cough no nausea or vomiting no abdominal pain no diarrhea and no urinary symptoms. Saint Gabriel was added for pain, consultation was added for nephrology regarding hyponatremia. On 11/10/2022 patient is alert and oriented 3. Patient having increased wheezing today. Per oncology arranging for possible inpatient palliative radiation to endobronchial bronchial lesions causing near-complete occlusion of the right upper lobe. Patient also being followed by nephrology services for hyponatremia sodium improving slightly to 122. at this time patient denies chest pain. Denies nausea vomiting or diarrhea. Patient denies any urinary burning or frequency. On 11/11/2022 patient is alert and oriented 3. Plans for palliative radiation today and tomorrow for endobronchial lesions. This time patient remains with audible wheezing and shortness of breath. Patient denies chest pain. Patient denies nausea vomiting or diarrhea. Patient denies any urinary burning or frequency. Sodium 126. Dr. Romano's group covering from 11/12/2022- 11/17/2022 On 11/17/2022 patient is alert and oriented 3. Patient has underwent palliative radiation. Apparently patient had episodes of tunnel vision and dizziness. Patient was evaluated by neurology services CT of the brain completed showing no acute process. Nephrology services were consulted and MRI and EEG has been ordered. Nephrology services continue to follow her hyponatremia. On 11/18/2022 patient was seen and examined on the medical floor she is alert and oriented 3 in no apparent distress there is no fever or chills no headache or dizziness no chest pain no shortness of breath no cough she has occasional nausea no vomiting no abdominal pain no diarrhea and no urinary symptoms. Patient is complaining of generalized pain, she is also complaining of oral thrush with difficulty swallowing. She has been refusing most of her meals, this was discussed in details with patient, at this time will add appetite stimulant Megace 400 mg suspension once daily. CODE STATUS was discussed again with patient and her , patient wants to be a full code at this time. On 11/19/2022 patient is alert and oriented 3. Patient to get last treatment of radiation today. Patient remains weak with shortness of breath. Patient denies chest pain. Patient's sodium slightly increased 121. Patient does report improvement with taking medication. On 2022 patient was seen and examined on the medical floor, she is alert and oriented 3 in no apparent distress she is complaining of generalized malaise and weakness otherwise no specific complaints sodium is down to 118 nephrology are following there is no fever or chills no headache or dizziness no chest pain no shortness of breath no cough no nausea or vomiting no abdominal pain no diarrhea and no urinary symptoms On 11/21/2022 patient currently sitting up in chair alert and oriented at bedside. Discussed case with nephrology services. If sodium continues to be critically low patient will require transfer to ICU and 3%. Indwelling [place] catheter also ordered to monitor input and output. On 11/22/2022 patient was seen and examined in the ICU she is alert and oriented 3 in no apparent distress she had significant difficulty with low sodium over the last few days she was transferred to ICU and was started on hypertonic saline 3% sodium is up to 122 nephrology and critical care are following patient is feeling anxious she is having shortness of breath with any activity she is maintained on oxygen 3 L via nasal cannula otherwise she denies any complaints at this time On 11/23/2022 patient remains in the ICU. Patient is alert and oriented 3. Patient remains on 3%. Sodium improving. On 11/24/2022 patient remains in the ICU patient is alert and oriented 3. Patient reports increased increase strength to lower extremity. Patient has multiple family members at bedside. Plans today to meet with hospice team. Patient has been on 3% drop at night patient to be transferred out of the ICU when bed available. Current vital signs temp 96.1, heart rate 77, respiratory rate 16, blood pressure 90/69 pulse ox of 93% on 2 L On 11/25/2022 patient was seen and examined in ICU, different courses of treatment were discussed with patient in detail by myself and by oncology over the last few days at this time patient has decided to go home with hospice. Plan - Discharge Summary Discharge Rx Participant: No New Discharge Prescriptions: New predniSONE See Taper PO DAILY #183 tab Saline Nasal Gel [[place] Nasal Gel] 1 applic NASAL Q6H PRN each PRN Reason: Dry Nasal Passages Sodium Chloride 0.65% Nasal [Deep Sea (Saline)] 2 spray NASAL QID PRN ml PRN Reason: Dry Nasal Passages Megestrol [Megace] 400 mg PO DAILY ml HYDROcodone/APAP 5-325MG [[place] Gabriel 5-325] 1 each PO Q4HR PRN tab PRN Reason: Pain INSULIN ASPART (NovoLOG) [NovoLOG (formulary)] 4 unit SQ AC-TID each Midodrine [ProAmatine] 10 mg PO AC-TID tab Sennosides-Docusate Sodium [Senokot-S] 1 each PO HS tab Sodium Bicarbonate Tab 650 mg PO BID tab ALPRAZolam [Xanax] 0.25 mg PO Q4HR PRN tab PRN Reason: Anxiety Furosemide [Lasix] 20 mg PO DAILY 30 Days #30 tab Benzocaine/Menthol Lozeng [Cepacol lozenge] 1 each MUCOUS MEM Q4HR PRN lozenge PRN Reason: Sore Throat Amiodarone [Cordarone] 200 mg PO BID tab Insulin Detemir (Levemir) [Levemir] 6 unit SQ HS each Metoprolol Tartrate [Lopressor] 12.5 mg PO BID tab Nitroglycerin Sl Tabs [Nitrostat] 0.4 mg SUBLINGUAL Q5M PRN tab PRN Reason: Chest Pain Tolvaptan [Samsca] 30 mg PO BID tab Sodium Chloride Tab 1 gm PO TID tab Phenol 1.4% Montgomery [Sore Throat Montgomery (Chloraseptic)] 1 applic MUCOUS MEM Q2HR PRN ml PRN Reason: Cough Continue Astragalus Root 2 cap PO Q3H Fluticasone Nasal Montgomery [Flonase Nasal Montgomery] 1 spr EA NOSTRIL BID Ipratropium-Albuterol Nebulize [Duoneb 0.5 mg-3 mg/3 ml Soln] 3 ml INHALATION RT-QID each Formoterol Fumarate [Perforomist] 20 mcg INHALATION RT-BID ml Budesonide [Pulmicort] 1 mg INHALATION RT-BID Doterra On Guard 2 cap PO DAILY Cetirizine HCl [Zyrtec] 10 mg PO HS Magnesium Taurate 1 cap PO HS Famotidine 20 mg PO BID Doterra Copaiba 2 cap PO HS predniSONE 10 mg PO DAILY Docusate [Colace] 100 mg PO DAILY PRN PRN Reason: Constipation Benzonatate [Tessalon Perle] 200 mg PO TID Discharge Medication List Astragalus Root 2 cap PO Q3H 10/04/22 [History] Cetirizine HCl [Zyrtec] 10 mg PO HS 10/04/22 [History] Doterra Copaiba 2 cap PO HS 10/04/22 [History] Doterra On Guard 2 cap PO DAILY 10/04/22 [History] Famotidine 20 mg PO BID 10/04/22 [History] Fluticasone Nasal Montgomery [Flonase Nasal Montgomery] 1 spr EA NOSTRIL BID 10/04/22 [History] Magnesium Taurate 1 cap PO HS 10/04/22 [History] Formoterol Fumarate [Perforomist] 20 mcg INHALATION RT-BID ml 10/07/22 [Rx] Ipratropium-Albuterol Nebulize [Duoneb 0.5 mg-3 mg/3 ml Soln] 3 ml INHALATION RT-QID each 10/07/22 [Rx] Benzonatate [Tessalon Perle] 200 mg PO TID 10/30/22 [History] Budesonide [Pulmicort] 1 mg INHALATION RT-BID 10/30/22 [History] Docusate [Colace] 100 mg PO DAILY PRN 10/30/22 [History] predniSONE 10 mg PO DAILY 10/30/22 [History] predniSONE See Taper PO DAILY #183 tab 11/05/22 [Rx] ALPRAZolam [Xanax] 0.25 mg PO Q4HR PRN tab 11/25/22 [Rx] Amiodarone [Cordarone] 200 mg PO BID tab 11/25/22 [Rx] Benzocaine/Menthol Lozeng [Cepacol lozenge] 1 each MUCOUS MEM Q4HR PRN lozenge 11/25/22 [Rx] Furosemide [Lasix] 20 mg PO DAILY 30 Days #30 tab 11/25/22 [Rx] HYDROcodone/APAP 5-325MG [[place] Gabriel 5-325] 1 each PO Q4HR PRN tab 11/25/22 [Rx] INSULIN ASPART (NovoLOG) [NovoLOG (formulary)] 4 unit SQ AC-TID each 11/25/22 [Rx] Insulin Detemir (Levemir) [Levemir] 6 unit SQ HS each 11/25/22 [Rx] Megestrol [Megace] 400 mg PO DAILY ml 11/25/22 [Rx] Metoprolol Tartrate [Lopressor] 12.5 mg PO BID tab 11/25/22 [Rx] Midodrine [ProAmatine] 10 mg PO AC-TID tab 11/25/22 [Rx] Nitroglycerin Sl Tabs [Nitrostat] 0.4 mg SUBLINGUAL Q5M PRN tab 11/25/22 [Rx] Phenol 1.4% Montgomery [Sore Throat Montgomery (Chloraseptic)] 1 applic MUCOUS MEM Q2HR PRN ml 11/25/22 [Rx] Saline Nasal Gel [[place] Nasal Gel] 1 applic NASAL Q6H PRN each 11/25/22 [Rx] Sennosides-Docusate Sodium [Senokot-S] 1 each PO HS tab 11/25/22 [Rx] Sodium Bicarbonate Tab 650 mg PO BID tab 11/25/22 [Rx] Sodium Chloride 0.65% Nasal [Deep Sea (Saline)] 2 spray NASAL QID PRN ml 11/25/22 [Rx] Sodium Chloride Tab 1 gm PO TID tab 11/25/22 [Rx] Tolvaptan [Samsca] 30 mg PO BID tab 11/25/22 [Rx] Follow up Appointment(s)/Referral(s): Flower Aguilar MD [Primary Care Provider] - 1-2 days
[2022-11-25 17:08] VITALS: BP 107/64; PULSE 88; TEMP 97.9
[2022-11-25] MEDS ORDERED: 1: MVI, ADULT NO.4 WITH VIT K 10 ML, TRACE (CONC-1ML/DOSE) 1 ML, SODIUM CHLORIDE 4MEQ/ML IV SCH ×5 (21:00)
--- NOTE | 2022-11-29 09:20 | CDI ---
Documentation Clarification Form Date: 11/29/2022 09:06:12 AM From: Alix Knight Admit Date: 10/30/2022 03:44:00 PM Patient Name: Saloni Dent Visit Number: [id number] Discharge Date: 11/25/2022 06:15:00 PM ATTENTION: The Clinical Documentation Specialists (CDI) and [facility] Coding Staff appreciate your assistance in clarifying documentation. Please respond to the clarification below the line at the bottom and electronically sign. The CDI & [facility] Coding staff will review the response and follow-up if needed. Please note: Queries are made part of the Legal Health Record. If you have any questions, please contact the author of this message via ITS. Dr. Narciso Palomo Endobronchial biopsies of RML and RUL are documented in OP report. Please clarify if tissue was excised for biopsy. Per Path report transbronchial biopsy of RML and RUL is documented. Please clarify if biopsy was done endobronchial or transbronchial. Additional clarification regarding the procedure is requested. History/Risk factors: metastatic ovarian cancer to the lungs. Pre-Operative Diagnosis: metastatic ovarian cancer to the lungs. Postoperative Diagnosis:metastatic ovarian cancer to the lungs. Clinical Indicators: endobronchial tumor Treatment: RUL and RML biopsy Please clarify the following if biopsy of RUL and RML were exicisional and if they were done endobronchial or transbronchial [x ] RUL and RML excision of tissue of lung endobronchial [ ] RUL and RML without excision of tissue endobronchial [ ] RUL and RML excision of tissue of lung transbronchial [ ] RUL and RML without excision of tissue transbronchial [ ] Other explanation MTDD
--- NOTE | 2022-11-30 12:51 | CDI ---
Documentation Clarification Form Date: 11/30/2022 12:18:18 PM From: Alix Knight Admit Date: 11/18/2022 07:54:00 AM Patient Name: Ludmila Fitch Visit Number: [id number] Discharge Date: 11/26/2022 11:16:00 AM ATTENTION: The Clinical Documentation Specialists (CDI) and [facility] Coding Staff appreciate your assistance in clarifying documentation. Please respond to the clarification below the line at the bottom and electronically sign. The CDI & [facility] Coding staff will review the response and follow-up if needed. Please note: Queries are made part of the Legal Health Record. If you have any questions, please contact the author of this message via ITS. Dr. Alla Hurley Per ID consult and PN 11/25, "Acute gangrenous cholecystitiis with sepsis. Case discussed with Dr. Bush in detail he is concerned due to the gangrenous gallbladder and would like 24 additional hours of IV antibiotics as the patient is high risk for abscess formation. " Please clarify if patient had sepsis or was sepsis ruled out. Based on this information and the findings below, is there an additional diagnosis that is clinically appropriate for this patient? History/Risk Factors: Diabetes, gangrenous gallbladder, cardimyopathy and CHF Clinical Indicators: WBC 8.3 Lactic acid: 2.1 Blood cultures: negative Vitals signs: 98F - 100.7 F, 86 bpm, 18, 164/106, 100% RA Treatment: IV Zosyn ID Consult: Patient with sepsis Antibiotics: IV Zosyn IV Bolus: Is there an additional diagnosis that is clinically appropriate for this patient? [ ] Sepsis, present on admission [ ] Sepsis, developed during stay, not present on admission [ ] Sepsis ruled out [ ] Other, please specify [ ] Unable to determine SIRS Criteria: 2 or more of the following may indicate SIRS Temperature < 96.8F (36C) or > 101.0F (38.3C) Heart Rate > 90 bpm Respiratory Rate > 20 breaths/min or PaCO2 < 32 mmHg White Blood Cell Count > 12,000 or < 4,000 cells/mm3 or > 10% bands MTDD
== END 2022-11-25 18:15 | disposition hospice, home (50) | DRG 180 ==
LOC: EC 10:52 → 3SCARD 15:44 → 2SICU 11-21 14:30
PROVIDERS: ADMIT Internal Medicine; ATTEND Internal Medicine
PROC: 02H633Z Insertion of Infusion Device into Right Atrium, Percutaneous Approach (ICD-10-PCS; 2022-10-30)
PROC: 3E043XZ Introduction of Vasopressor into Central Vein, Percutaneous Approach (ICD-10-PCS; 2022-11-08)
PROC: 0BB48ZX Excision of Right Upper Lobe Bronchus, Via Natural or Artificial Opening Endoscopic, Diagnostic (ICD-10-PCS; principal; 2022-11-08 07:55)
PROC: 0BB58ZX Excision of Right Middle Lobe Bronchus, Via Natural or Artificial Opening Endoscopic, Diagnostic (ICD-10-PCS; principal; 2022-11-08 07:55)
PROC: 0BDC8ZX Extraction of Right Upper Lung Lobe, Via Natural or Artificial Opening Endoscopic, Diagnostic (ICD-10-PCS; principal; 2022-11-08 07:55)
PROC: 0B9J8ZX Drainage of Left Lower Lung Lobe, Via Natural or Artificial Opening Endoscopic, Diagnostic (ICD-10-PCS; principal; 2022-11-08 07:55)
PROC: 0W993ZX Drainage of Right Pleural Cavity, Percutaneous Approach, Diagnostic (ICD-10-PCS; 2022-11-11)
PROC: DB022ZZ Beam Radiation of Lung using Photons >10 MeV (ICD-10-PCS; 2022-11-12)
PROC: 02HV33Z Insertion of Infusion Device into Superior Vena Cava, Percutaneous Approach (ICD-10-PCS; 2022-11-23)
DX: C78.01 Secondary malignant neoplasm of right lung (principal); J15.211 Pneumonia due to Methicillin susceptible Staphylococcus aureus; J96.21 Acute and chronic respiratory failure with hypoxia; N17.0 Acute kidney failure with tubular necrosis; B37.0 Candidal stomatitis; C56.9 Malignant neoplasm of unspecified ovary; C79.89 Secondary malignant neoplasm of other specified sites; E22.2 Syndrome of inappropriate secretion of antidiuretic hormone; I31.39 Other pericardial effusion (noninflammatory); I48.92 Unspecified atrial flutter; J44.0 Chronic obstructive pulmonary disease with (acute) lower respiratory infection; J91.0 Malignant pleural effusion; J98.11 Atelectasis; J84.9 Interstitial pulmonary disease, unspecified; D53.9 Nutritional anemia, unspecified; E83.42 Hypomagnesemia; Z51.5 Encounter for palliative care; Z66 Do not resuscitate; E11.65 Type 2 diabetes mellitus with hyperglycemia; I48.0 Paroxysmal atrial fibrillation; I95.9 Hypotension, unspecified; I50.9 Heart failure, unspecified; I11.0 Hypertensive heart disease with heart failure; E11.649 Type 2 diabetes mellitus with hypoglycemia without coma; Z99.81 Dependence on supplemental oxygen; E87.5 Hyperkalemia; J20.9 Acute bronchitis, unspecified; T38.0X5A Adverse effect of glucocorticoids and synthetic analogues, initial encounter; K59.00 Constipation, unspecified; T39.395A Adverse effect of other nonsteroidal anti-inflammatory drugs [NSAID], initial encounter; R59.0 Localized enlarged lymph nodes; Z79.52 Long term (current) use of systemic steroids; Z79.899 Other long term (current) drug therapy; Z82.49 Family history of ischemic heart disease and other diseases of the circulatory system; Z83.3 Family history of diabetes mellitus; Z87.01 Personal history of pneumonia (recurrent); Z90.710 Acquired absence of both cervix and uterus; Z92.21 Personal history of antineoplastic chemotherapy; Z92.3 Personal history of irradiation; Z71.3 Dietary counseling and surveillance; Z88.5 Allergy status to narcotic agent; Z88.8 Allergy status to other drugs, medicaments and biological substances; Z90.49 Acquired absence of other specified parts of digestive tract; Z79.51 Long term (current) use of inhaled steroids; Z28.21 Immunization not carried out because of patient refusal
CPT/HCPCS: 31623; 31624; 31628; 36415; 36573; 70450; 71045; 71046; 71250; 71275; 76604; 77280; 77290; 77307; 77334; 77336; 77387; 77412; 80048; 80053; 80061; 82024; 82330; 82533; 82607; 82728; 82746; 82945; 83036; 83540; 83550; 83605; 83615; 83735; 83880; 83921; 83930; 83935; 84100; 84132; 84145; 84155; 84157; 84295; 84300; 84439; 84443; 84478; 84484; 85025; 85027; 85379; 85610; 85730; 87040; 87070; 87077; 87102; 87116; 87186; 87205; 87206; 87252; 87496; 87498; 87502; 87529; 87634; 87798; 88104; 88108; 88305; 88341; 88342; 89050; 93005; 93306; 94640; 94760; 95819; 96374; 96375; 99285